=== PATIENT | female | born 1950 | race Caucasian/White ===

== ENCOUNTER → 2017-03-31 | Outpatient (CLI) | payer MEDICARE, OTHER ==
[2017-03-31 13:19] LABS: Blood Urea Nitrogen 13 mg/dL (7-17); Non-African American GFR(MDRD) >60 (>60 ml/min/1.73 sqM)
--- NOTE | 2017-03-31 14:50 | CT ---
EXAMINATION TYPE: CT brain w con DATE OF EXAM: 03/31/2017 COMPARISON: NONE HISTORY: 67-year-old female with dizziness and headache. CT DLP: 1129 mGycm Automated exposure control for dose reduction was used. Technique: CT scan of the head is performed with IV Contrast, patient injected with 100 mL of Omnipaq ue 300. Coronal and sagittal reconstructions performed. FINDINGS: There is no abnormal enhancing mass or midline shift identified. There is mild bifrontal cortical at rophy. No hydrocephalus. Dural venous sinuses are patent. The globes are intact and the visualized s inuses are clear. IMPRESSION: Mild bifrontal cortical atrophy. Otherwise, negative contrast enhanced head CT exam.
== END | disposition home or self-care (01) ==
LOC: RADCTMAIN 12:49
PROVIDERS: ATTEND Family Medicine
DX: G31.9 Degenerative disease of nervous system, unspecified (principal); R42 Dizziness and giddiness
CPT/HCPCS: 82565; 84520; 70460; 36415; Q9967

== ENCOUNTER 2017-04-02 20:52 | Emergency (ER) | payer MEDICARE, OTHER ==
[2017-04-02] MEDS ORDERED: MORPHINE SULFATE 4 MG/ML SYRINGE IVP STA ×2 (21:20→22:37)
[2017-04-02] MEDS ORDERED: RX INFO: IV CONTRAST WAS GIVEN 1 EACH MISC MISCELLANE PRN (21:20)
[2017-04-02] MEDS ORDERED: ONDANSETRON 4 MG/2 ML VIAL IVP STA (21:20)
--- NOTE | 2017-04-02 21:33 | ED ---
Abdominal Pain HPI - General Chief Complaint: Abdominal Pain Stated Complaint: Flank Pain Source: patient Mode of arrival: wheelchair Limitations: no limitations - History of Present Illness Initial Comments: Patient is a 67-year-old female who presents for evaluation for acute right upper flank pain that started today. Past medical history as below. Patient stated that she is recently treated for a urinary tract infection with Cleocin. This past Thursday, she had 8 episodes of loose stools. She discussed this with her primary care physician who ordered a C. diff toxin and by mouth Flagyl. Prior to starting that though, the patient developed this right sharp unrelenting right upper flank pain. Nothing makes it better or worse. She has a history of kidney stones and states that the pain feels somewhat similar to that. She also states that she recently flew back from [facility]. She has no history of DVT or pulmonary embolism. She has a long-standing history of hypertension. There is no blood in her urine. She denies any urinary symptoms at this time. She states that she feels somewhat nauseous. She describes it as "gastritis ". She has not had a bowel movement since Thursday. She comes in for evaluation because the pain has become quite severe in the right upper flank. She also states that she's been having symptoms of exertional chest pain and states that she'll sometimes be sweaty with simple activities. This is apparently new over the last couple of days. She has a history of a heart problem several years ago which is since resolved. She is never had a heart attack. She currently denies fevers, headaches, URI symptoms , cough, active chest pain as of right now, vomiting, diarrhea, pain or burning with urination. - Related Data Home Medications Medication Instructions Recorded Confirmed Aspirin EC [Ecotrin Low Dose] 81 mg PO DAILY 04/22/16 06/02/16 Esomeprazole Magnesium [NexIUM] 40 mg PO BID 04/22/16 06/04/16 Ezetimibe [Zetia] 10 mg PO HS 04/22/16 06/04/16 Insulin Lispro Protamin/Lispro 68 units SQ BID 04/22/16 06/04/16 [humaLOG Mix 75-25 Kwikpen] Levothyroxine Sodium [Synthroid] 50 mcg PO DAILY 04/22/16 06/04/16 Liraglutide [Victoza 2-Dread] 1.8 mg SQ AC-BID 04/22/16 06/04/16 Methocarbamol [Robaxin] 500 mg PO HS PRN 04/22/16 06/04/16 Mirabegron [Myrbetriq] 50 mg PO DAILY 04/22/16 06/04/16 Valsartan [Diovan] 40 mg PO HS 04/22/16 06/04/16 traMADol HCL [Ultram] 50 - 100 mg PO Q6HR PRN 04/22/16 06/04/16 Ibuprofen [Motrin] 200 - 800 mg PO Q6HR PRN 06/02/16 06/04/16 Montelukast [Singulair] 10 mg PO DAILY PRN 06/02/16 06/04/16 Rosuvastatin Calcium [Crestor] 40 mg PO HS 06/02/16 06/04/16 diphenhydrAMINE [Benadryl] 50 mg PO DAILY PRN 06/02/16 06/04/16 Previous Rx's Medication Instructions Recorded Polyethylene Glycol 3350 [Miralax] 17 gm PO BID #527 gm 04/02/17 Allergies Allergy/AdvReac Type Severity Reaction Status Date / Time codeine Allergy Rash/Hives Verified 04/02/17 20:58 neomycin Allergy Unknown Verified 04/02/17 20:58 Sulfa (Sulfonamide Allergy Unknown Verified 04/02/17 20:58 Antibiotics) sulfamethoxazole Allergy Dyspnea Verified 04/02/17 20:58 [From ] trimethoprim [From ] Allergy Dyspnea Verified 04/02/17 20:58 morphine AdvReac Itching Verified 04/02/17 20:58 Review of Systems ROS Statement: Those systems with pertinent positive or pertinent negative responses have been documented in the HPI. ROS Other: All systems not noted in ROS Statement are negative. Past Medical History Past Medical History: Cancer, Diabetes Mellitus, GERD/Reflux, Hyperlipidemia, Hypertension, Sleep Apnea/CPAP/BIPAP Additional Past Medical History / Comment(s): Lt Breast CA. HX IRREG HEART X1. USES CPAP. HX COLITIS. HAD BLACK STOOLS 2 WEEKS AGO. History of Any Multi-Drug Resistant Organisms: MRSA Date of last positivie culture/infection: 2013 MDRO Source:: nasal Past Surgical History: Back Surgery, Breast Surgery, Cholecystectomy, Hysterectomy Additional Past Surgical History / Comment(s): Lt Mastectomy W/ RECONSTRUCTION; RT BREAST IMPLANT. SINUS SURG X3. Additional Past Anesthesia/Blood Transfusion Reaction / Comment(s): HX OF DAMAGE TO VOCAL CORDS POST-OP Past Psychological History: No Psychological Hx Reported Smoking Status: Never smoker Past Alcohol Use History: Rare Past Drug Use History: None Reported - Past Family History Father Sister(s) Family Medical History: Cancer Brother(s) Family Medical History: Cancer Additional Family Medical History / Comment(s): ANEURYSM General Exam Limitations: no limitations General appearance: alert, in no apparent distress, other (Lying somewhat still in the stretcher.) Head exam: Present: atraumatic, normocephalic, normal inspection Eye exam: Present: normal appearance, PERRL, EOMI. Absent: scleral icterus, conjunctival injection, periorbital swelling ENT exam: Present: normal exam, mucous membranes moist Neck exam: Present: normal inspection. Absent: tenderness, meningismus, lymphadenopathy Respiratory exam: Present: normal lung sounds bilaterally, other (Clear bilaterally without wheezes rales or rhonchi. No conversational dyspnea. Mild tachypnea 20. No hypoxia.). Absent: respiratory distress, wheezes, rales, rhonchi, stridor Cardiovascular Exam: Present: regular rate, normal rhythm, normal heart sounds, other (Normal S1 and S2. No murmurs. Distal pulses intact. Warm extremities. Hypertensive on exam. No abdominal bruits. No pulsatile masses in her abdomen. Radial and femoral pulses equal and intact.). Absent: systolic murmur , diastolic murmur, rubs, gallop, clicks GI/Abdominal exam: Present: soft, tenderness, normal bowel sounds, other (Pain with palpation of the right upper flank/right upper quadrant. Soft abdomen. No peritoneal signs.). Absent: distended, guarding, rebound, rigid Extremities exam: Present: normal inspection, full ROM, normal capillary refill. Absent: tenderness, pedal edema, joint swelling, calf tenderness Back exam: Present: normal inspection Neurological exam: Present: alert, oriented X3, CN II-XII intact Psychiatric exam: Present: normal affect, normal mood Skin exam: Present: warm, dry, intact, normal color. Absent: rash Course Vital Signs 04/02/17 04/02/17 04/02/17 20:53 21:37 23:44 Temperature 97.0 F L Pulse Rate 66 67 74 Respiratory 20 18 18 Rate Blood Pressure 176/79 165/79 144/68 O2 Sat by Pulse 96 96 95 Oximetry Medical Decision Making - Medical Decision Making 2114: Patient is a 67-year-old female who presents for evaluation for acute right flank pain. Patient has a constellation of symptoms that are somewhat vague. Recently treated for UTI. History of kidney stones. Could possibly be related to pyelonephritis versus septic stone. Patient also recommended workup for possible C. diff. However, the patient is no longer having diarrhea or loose stools. Patient is also having exertional dyspnea, intermittent chest pain and sweating episodes. She had reproducible chest pain with the right upper flank. Possibility that she may have a PE as well as she is recently had a long plane flight. We'll order CT angiogram chest abdomen and pelvis, EKG, troponins, d-dimer, CBC, CMP, urinalysis with urine culture, C. diff toxin, morphine, Zofran, cardiac monitoring. Believe this patient is a high risk with her long-standing history of hypertension, acute flank pain. 2133: Reviewed EKG. Sinus rhythm at 64. [place] 166. QRS 88. QTc 460. No ST changes. 0: Reviewed laboratory studies. Within normal limits. No elevation in the d -dimer or troponin. Reevaluated the patient. Continues to have right upper flank pain. States that it is 8 out of 10. States it is unbearable. Awaiting for CT imaging. 2330: Awaiting final read of CT imaging. Pt requested something more for pain; ordered an additional dose of morphine. 2350: CT findings revealed no acute abnormality. Aorta intact. No signs of kidney stones. No other inflammatory process in the bowel chest or pelvis. Significant constipation. There is also a lytic lesion on the right iliac crest. I discussed all the findings with the patient. Her VS are stable. She voiced understanding of the entire workup provided.. Comfortable with discharge home as her pain is greatly improved. Will order MiraLAX twice a day for 14 days. Encourage close follow-up with primary care physician. If pain persists over the next 8-12 hours she will return for further evaluation. Otherwise will follow-up with her PCP. Discussed further signs and symptoms on when to return to the emergency department for further evaluation. Worse understanding. Comfortable discharge home and will follow-up. - Lab Data Result diagrams: 04/02/17 21:18 04/02/17 21:18 Lab Results 04/02/17 04/02/17 04/02/17 Range/Units 21:18 21:18 21:18 WBC 9.6 (3.8-10.6) k/uL RBC 5.13 (3.80-5.40) m/uL Hgb 14.3 (11.4-16.0) gm/dL Hct 44.9 (34.0-46.0) % MCV 87.5 (80.0-100.0) fL MCH 28.0 (25.0-35.0) pg MCHC 32.0 (31.0-37.0) g/dL RDW 15.9 H (11.5-15.5) % Plt Count 249 (150-450) k/uL Neutrophils % 59 % Lymphocytes % 31 % Monocytes % 5 % Eosinophils % 3 % Basophils % 1 % Neutrophils # 5.7 (1.3-7.7) k/uL Lymphocytes # 3.0 (1.0-4.8) k/uL Monocytes # 0.5 (0-1.0) k/uL Eosinophils # 0.3 (0-0.7) k/uL Basophils # 0.1 (0-0.2) k/uL D-Dimer 0.39 (<0.60) mg/L FEU Sodium 138 (137-145) mmol/L Potassium 3.9 (3.5-5.1) mmol/L Chloride 103 (98-107) mmol/L Carbon Dioxide 24 (22-30) mmol/L Anion Gap 11 mmol/L BUN 13 (7-17) mg/dL Creatinine 0.79 (0.52-1.04) mg/dL Est GFR (MDRD) Af Amer >60 (>60 ml/min/1.73 sqM) Est GFR (MDRD) Non-Af >60 (>60 ml/min/1.73 sqM) Glucose 263 H (74-99) mg/dL Calcium 9.0 (8.4-10.2) mg/dL Magnesium 1.6 (1.6-2.3) mg/dL Total Bilirubin 0.3 (0.2-1.3) mg/dL AST 30 (14-36) U/L ALT 41 (9-52) U/L Alkaline Phosphatase 93 (38-126) U/L Troponin I (0.000-0.034) ng/mL Total Protein 7.3 (6.3-8.2) g/dL Albumin 3.9 (3.5-5.0) g/dL Lipase 264 (23-300) U/L Urine Color Urine Appearance (Clear) Urine pH (5.0-8.0) Ur Specific [place] (1.001-1.035) Urine Protein (Negative) Urine Glucose (UA) (Negative) Urine Ketones (Negative) Urine Blood (Negative) Urine Nitrite (Negative) Urine Bilirubin (Negative) Urine Urobilinogen (<2.0) mg/dL Ur Leukocyte Esterase (Negative) 04/02/17 04/02/17 Range/Units 21:18 21:18 WBC (3.8-10.6) k/uL RBC (3.80-5.40) m/uL Hgb (11.4-16.0) gm/dL Hct (34.0-46.0) % MCV (80.0-100.0) fL MCH (25.0-35.0) pg MCHC (31.0-37.0) g/dL RDW (11.5-15.5) % Plt Count (150-450) k/uL Neutrophils % % Lymphocytes % % Monocytes % % Eosinophils % % Basophils % % Neutrophils # (1.3-7.7) k/uL Lymphocytes # (1.0-4.8) k/uL Monocytes # (0-1.0) k/uL Eosinophils # (0-0.7) k/uL Basophils # (0-0.2) k/uL D-Dimer (<0.60) mg/L FEU Sodium (137-145) mmol/L Potassium (3.5-5.1) mmol/L Chloride (98-107) mmol/L Carbon Dioxide (22-30) mmol/L Anion Gap mmol/L BUN (7-17) mg/dL Creatinine (0.52-1.04) mg/dL Est GFR (MDRD) Af Amer (>60 ml/min/1.73 sqM) Est GFR (MDRD) Non-Af (>60 ml/min/1.73 sqM) Glucose (74-99) mg/dL Calcium (8.4-10.2) mg/dL Magnesium (1.6-2.3) mg/dL Total Bilirubin (0.2-1.3) mg/dL AST (14-36) U/L ALT (9-52) U/L Alkaline Phosphatase (38-126) U/L Troponin I <0.012 (0.000-0.034) ng/mL Total Protein (6.3-8.2) g/dL Albumin (3.5-5.0) g/dL Lipase (23-300) U/L Urine Color Light Yellow Urine Appearance Clear (Clear) Urine pH 5.5 (5.0-8.0) Ur Specific [place] 1.013 (1.001-1.035) Urine Protein Negative (Negative) Urine Glucose (UA) 4+ H (Negative) Urine Ketones Negative (Negative) Urine Blood Negative (Negative) Urine Nitrite Negative (Negative) Urine Bilirubin Negative (Negative) Urine Urobilinogen <2.0 (<2.0) mg/dL Ur Leukocyte Esterase Negative (Negative) Disposition Clinical Impression: Abdominal pain, Bone lesion Disposition: HOME SELF-CARE Condition: Fair Instructions: Constipation (ED), Abdominal Pain (ED) Prescriptions: Polyethylene Glycol 3350 [Miralax] 17 gm PO BID #527 gm Referrals: Annelise Rose DO [Primary Care Provider] - 1-2 days
[2017-04-02 21:34] LABS: Basophils # (A) 0.1 k/uL (0-0.2); Basophils % (A) 1 %; CH 29.1; CHCM 33.4; Eosinophils # (A) 0.3 k/uL (0-0.7); Eosinophils % (A) 3 %; HCT 44.9 % (34.0-46.0); HDW 2.53; HGB 14.3 gm/dL (11.4-16.0); Luc # (Auto) 0.16; Luc % (Auto) 2; Lymphocytes % (A) 31 %; MCV 87.5 fL (80.0-100.0); Mean Platelet Volume 7.5; Monocytes # (A) 0.5 k/uL (0-1.0); Monocytes % (A) 5 %; Neutrophils # (A) 5.7 k/uL (1.3-7.7); Neutrophils % (A) 59 %; RBC 5.13 m/uL (3.80-5.40); RDW 15.9 % (11.5-15.5); WBC 9.6 k/uL (3.8-10.6); WBC (Perox) 9.22
[2017-04-02 21:37] VITALS: RESP 18
[2017-04-02 21:38] LABS: Appearance,Urine Clear (Clear); Bilirubin,Urine Negative (Negative); Glucose,Urine (UA) 4+ (Negative); Ketones,Urine Negative (Negative); Leukocyte Esterase,Urine Negative (Negative); Nitrite,Urine Negative (Negative); PH, Urine 5.5 (5.0-8.0); Protein,Urine Negative (Negative); Specific Gravity,Urine 1.013 (1.001-1.035); UA Billing (MACRO vs. MICRO) CHEM; Urobilinogen,Urine <2.0 mg/dL (<2.0)
[2017-04-02 21:44] LABS: ALT 41 U/L (9-52); AST 30 U/L (14-36); Alkaline Phosphatase 93 U/L (38-126); Anion Gap 11 mmol/L; Blood Urea Nitrogen 13 mg/dL (7-17); Carbon Dioxide 24 mmol/L (22-30); Chloride 103 mmol/L (98-107); Glucose 263 mg/dL (74-99); Magnesium 1.6 mg/dL (1.6-2.3); Non-African American GFR(MDRD) >60 (>60 ml/min/1.73 sqM); Potassium 3.9 mmol/L (3.5-5.1); Sodium 138 mmol/L (137-145); Total Bilirubin 0.3 mg/dL (0.2-1.3); Total Protein 7.3 g/dL (6.3-8.2)
--- NOTE | 2017-04-02 23:37 | CT ---
EXAM: CT Angiography Abdomen With Intravenous Contrast CLINICAL HISTORY: Reason: Pain TECHNIQUE: Axial computed tomographic angiography images of the abdomen with intravenous contrast. CTDI is 67.20 (combined) mGy and DLP is 841.5 mGy- cm. This CT exam was performed using one or more of the following dose reduction techniques: automated exposure control, adjustment of the mA and/or kV according to patient size, and/or use of iterative reconstruction technique. MIP reconstructed images were created and reviewed. COMPARISON: None. FINDINGS: Aorta: Moderate tortuosity of the intra-abdominal aorta is seen. No evidence of intra-abdominal aortic aneurysm. Mild atherosclerotic vascular calcifications involving the intra-abdominal aorta and its branches. No dissection. Celiac trunk and mesenteric arteries: No acute findings. No occlusion or significant stenosis. Renal arteries: No acute findings. No occlusion or significant stenosis. Liver: Liver measures up to 22.9 cm in craniocaudad dimension, which may represent a Eliot's lobe. Hepatomegaly cannot be definitively excluded. Hepatic steatosis is suggested. Gallbladder and bile ducts: Patient status post cholecystectomy. No ductal dilation. Pancreas: The pancreas appears mildly atrophic. No ductal dilation. Spleen: Unremarkable. No splenomegaly. Adrenals: Unremarkable. No mass. Kidneys and ureters: Unremarkable. No hydronephrosis. No solid mass. Stomach and bowel: Moderate amount stool seen within the colon, which may represent constipation. No obstruction. No mucosal thickening. A normal appendix is seen. Intraperitoneal space: Unremarkable. No significant fluid collection. No free air. Bones/joints: 2.7 cm mixed lytic/sclerotic lesion within the medial right iliac bone. Postoperative changes are seen involving the lower lumbar spine. No acute fracture. No dislocation. Soft tissues: Unremarkable. No mass. Lymph nodes: Shotty retroperitoneal lymph nodes, of unknown significance. IMPRESSION: 1. Findings suggestive of constipation. 2. A Eliot's lobe versus hepatomegaly. Hepatic steatosis suggested. 3. Status post cholecystectomy. 4. A 2.7 cm mixed lytic/sclerotic lesion within the medial right iliac bone. Correlation with prior outside studies recommended for further evaluation. Nonemergent MRI is recommended for further evaluation if prior studies aren't available. 5. Other findings as above
--- NOTE | 2017-04-02 23:42 | CT ---
EXAM: CT Angiography Chest With Intravenous Contrast CLINICAL HISTORY: Flank pain radiating anteriorly. TECHNIQUE: Axial computed tomographic angiography images of the chest with intravenous contrast using pulmonary embolism protocol. CTDI is combined with CTA of the abdomen/pelvis and DLP is 365.3 mGy-cm. This CT exam was performed using one or more of the following dose reduction techniques: automated exposure control, adjustment of the mA and/or kV according to patient size, and/or use of iterative reconstruction technique. MIP reconstructed images were created and reviewed. COMPARISON: None. FINDINGS: Pulmonary arteries: Unremarkable. No pulmonary embolism. Aorta: No acute findings. No thoracic aortic aneurysm. Lungs: Mild bronchiectasis is suggested. Minimal dependent atelectasis is seen involving both lower lobes, right greater than left. Linear atelectasis is also seen involving both lower lobes. No mass. Pleural space: Unremarkable. No significant effusion. No pneumothorax. Heart: Unremarkable. No cardiomegaly. No significant pericardial effusion. No evidence of RV dysfunction. Bones/joints: Evaluation of the osseous structures demonstrates mild degenerative changes. No acute fracture. No dislocation. Soft tissues: Bilateral breast implants are noted. Lymph nodes: Mildly prominent mediastinal and bilateral hilar lymph nodes are seen, which are at the upper limits of normal, of unknown significance. IMPRESSION: No acute findings. Other findings, as described above.
[2017-04-02 23:45] VITALS: BP 144/68; PULSE 74
[2017-04-03 00:01] VITALS: TEMP 97.6
== END 2017-04-03 00:01 | disposition home or self-care (01) ==
LOC: EC 20:52
DX: M89.9 Disorder of bone, unspecified (principal); R10.11 Right upper quadrant pain; K59.00 Constipation, unspecified; E11.9 Type 2 diabetes mellitus without complications; K21.9 Gastro-esophageal reflux disease without esophagitis; E78.5 Hyperlipidemia, unspecified; I10 Essential (primary) hypertension; Z85.3 Personal history of malignant neoplasm of breast; Z87.19 Personal history of other diseases of the digestive system; Z90.49 Acquired absence of other specified parts of digestive tract; Z88.1 Allergy status to other antibiotic agents; Z88.2 Allergy status to sulfonamides; Z88.5 Allergy status to narcotic agent; Z88.8 Allergy status to other drugs, medicaments and biological substances; Z79.4 Long term (current) use of insulin; Z79.82 Long term (current) use of aspirin; Z79.899 Other long term (current) drug therapy
CPT/HCPCS: 99284 ×2; 96374 ×2; 96375 ×2; 96376 ×2; 93005; 85379; 80053; 83690; 83735; 84484; 85025; 81003; 87086; 87077; 87186; 75635; 71275; J2270; Q9967; J2405

== ENCOUNTER → 2017-05-15 | Outpatient (CLI) | payer MEDICARE, OTHER ==
--- NOTE | 2017-05-16 00:02 | MR ---
EXAMINATION TYPE: MR pelvis wo con DATE OF EXAM: 05/15/2017 COMPARISON: NONE HISTORY: lytic lesion on rt iliac crest, abnormal CT angio thoracic/abd aorta Standard multiplanar, multisequence MRI departmental protocol Multiplanar, multisequence images of the pelvis were acquired. FINDINGS: There is a 2.4 x 2 cm mixed signal area that is somewhat geographic in the posterior aspect of the right iliac bone adjacent to the sacrum. This area has high attenuation on the CT scan of 03/17 consistent with significant sclerosis. There is no evidence of a soft tissue mass. Sacroiliac joints appear normal. There is no evidence of free fluid in the pelvis. I see no pelvic mass. Bladder distends smoothly. Lo wer lumbar spine metal artifact is noted from multilevel fusion surgery. There is no evidence of a fr acture. The proximal femurs appear intact. There is no sign of hip dysplasia. IMPRESSION: Mixed signal lesion in the right iliac bone appears unchanged in size compared to the recent CT scan. This is probably due to bone donor site for the lumbar spine posterior fusion surgery. Correlation w ith the surgical history is recommended. The lesion has benign features on CT and MR scan.
== END | disposition home or self-care (01) ==
LOC: RADMRIMAIN 12:46
PROVIDERS: ATTEND Physician Assistant
DX: R93.7 Abnormal findings on diagnostic imaging of other parts of musculoskeletal system (principal); M25.859 Other specified joint disorders, unspecified hip
CPT/HCPCS: 72195

== ENCOUNTER 2017-06-18 15:23 | Inpatient (IN) | payer MEDICARE, OTHER ==
[2017-06-18] MEDS ORDERED: ONDANSETRON 4 MG/2 ML VIAL IVP STA (15:49)
[2017-06-18] MEDS ORDERED: SODIUM CHLORIDE 0.9% 1,000 ML IV STA (15:49)
[2017-06-18] MEDS ORDERED: RX INFO: IV CONTRAST WAS GIVEN 1 EACH MISC MISCELLANE PRN (15:49)
[2017-06-18] MEDS ORDERED: PANTOPRAZOLE 40 MG/10 ML VIAL IVP STA (15:49)
[2017-06-18] MEDS ORDERED: HYDROmorphone 0.5 MG/0.5 ML SYRINGE IVP STA ×2 (15:49→17:33)
[2017-06-18 16:17] LABS: Anisocytosis Slight; Basophils # (A) 0.1 k/uL (0-0.2); Basophils % (A) 1 %; CH 28.2; CHCM 32.4; Eosinophils # (A) 0.3 k/uL (0-0.7); Eosinophils % (A) 3 %; HCT 44.8 % (34.0-46.0); HDW 2.47; HGB 14.7 gm/dL (11.4-16.0); Luc # (Auto) 0.09; Luc % (Auto) 1; Lymphocytes # (A) 2.1 k/uL (1.0-4.8); Lymphocytes % (A) 25 %; MCH 28.7 pg (25.0-35.0); MCHC 32.9 g/dL (31.0-37.0); MCV 87.4 fL (80.0-100.0); Mean Platelet Volume 7.5; Monocytes # (A) 0.5 k/uL (0-1.0); Monocytes % (A) 6 %; Neutrophils # (A) 5.6 k/uL (1.3-7.7); Neutrophils % (A) 65 %; RBC 5.12 m/uL (3.80-5.40); RDW 16.3 % (11.5-15.5); WBC 8.7 k/uL (3.8-10.6); WBC (Perox) 8.68
[2017-06-18 16:21] LABS: Appearance,Urine Cloudy (Clear); Bacteria,Urine Occasional /hpf; Bilirubin,Urine Negative (Negative); Glucose,Urine (UA) 2+ (Negative); Ketones,Urine Negative (Negative); Leukocyte Esterase,Urine Large (Negative); Nitrite,Urine Positive (Negative); PH, Urine 6.5 (5.0-8.0); Particle Count 26273; Protein,Urine Negative (Negative); Specific Gravity,Urine 1.007 (1.001-1.035); Squamous Epithelial Cell,Urine <1 /hpf (0-4); UA Billing (MACRO vs. MICRO) MICRO; Urobilinogen,Urine <2.0 mg/dL (<2.0); WBC,Urine 88 /hpf (0-5)
--- NOTE | 2017-06-18 16:25 | ED ---
Abdominal Pain HPI - General Chief Complaint: Abdominal Pain Stated Complaint: back & abdominal pain Time Seen by Provider: 06/18/17 15:42 Source: patient, RN notes reviewed Mode of arrival: ambulatory Limitations: no limitations - History of Present Illness Initial Comments: This a 67-year-old female presents emergency Department with chief complaint of abdominal pain, black stools. She states this started yesterday with increasing abdominal pain which is now diffuse in nature. Patient states that she had more than 10 episodes of black tarry stools. Patient states that she did have bleeding in her intestines in the past which she was told this was from taking ibuprofen. Patient currently takes aspirin 81 mg daily. Patient had a prior cholecystectomy and hysterectomy. Denies any vomiting states she's nauseated denies fever, chills, dysuria or hematuria. Denies any chest pain or shortness breath. Patient saw her primary care physician who recommended patient come emergency Department for further evaluation. - Related Data Home Medications Medication Instructions Recorded Confirmed Aspirin EC [Ecotrin Low Dose] 81 mg PO DAILY 04/22/16 06/18/17 Esomeprazole Magnesium [NexIUM] 40 mg PO BID 04/22/16 06/18/17 Ezetimibe [Zetia] 10 mg PO HS 04/22/16 06/18/17 Insulin Lispro Protamin/Lispro 48 units SQ BID 04/22/16 06/18/17 [humaLOG Mix 75-25 Kwikpen] Liraglutide [Victoza 2-Dread] 1.8 mg SQ AC-BID 04/22/16 06/18/17 Methocarbamol [Robaxin] 500 mg PO HS PRN 04/22/16 06/18/17 Mirabegron [Myrbetriq] 50 mg PO DAILY 04/22/16 06/18/17 Valsartan [Diovan] 80 mg PO HS 04/22/16 06/18/17 traMADol HCL [Ultram] 50 - 100 mg PO Q6HR PRN 04/22/16 06/18/17 Montelukast [Singulair] 10 mg PO DAILY 06/02/16 06/18/17 Rosuvastatin Calcium [Crestor] 40 mg PO HS 06/02/16 06/18/17 Levothyroxine Sodium [Synthroid] 50 mcg PO DAILY 06/18/17 06/18/17 Allergies Allergy/AdvReac Type Severity Reaction Status Date / Time neomycin Allergy Unknown Verified 06/18/17 16:25 Sulfa (Sulfonamide Allergy Unknown Verified 06/18/17 16:25 Antibiotics) sulfamethoxazole Allergy Dyspnea Verified 06/18/17 16:25 [From ] trimethoprim [From ] Allergy Dyspnea Verified 06/18/17 16:25 codeine AdvReac Itching Verified 06/18/17 16:25 morphine AdvReac Itching Verified 06/18/17 16:25 Review of Systems ROS Statement: Those systems with pertinent positive or pertinent negative responses have been documented in the HPI. ROS Other: All systems not noted in ROS Statement are negative. Past Medical History Past Medical History: Cancer, Diabetes Mellitus, GERD/Reflux, Hyperlipidemia, Hypertension, Sleep Apnea/CPAP/BIPAP Additional Past Medical History / Comment(s): Lt Breast CA. HX IRREG HEART X1. USES CPAP. HX COLITIS. HAD BLACK STOOLS 2 WEEKS AGO. History of Any Multi-Drug Resistant Organisms: MRSA Date of last positivie culture/infection: 04/02/17 MDRO Source:: URINE Past Surgical History: Back Surgery, Breast Surgery, Cholecystectomy, Hysterectomy Additional Past Surgical History / Comment(s): Lt Mastectomy W/ RECONSTRUCTION; RT BREAST IMPLANT. SINUS SURG X3. Additional Past Anesthesia/Blood Transfusion Reaction / Comment(s): HX OF DAMAGE TO VOCAL CORDS POST-OP Past Psychological History: No Psychological Hx Reported Smoking Status: Never smoker Past Alcohol Use History: Rare Past Drug Use History: None Reported - Past Family History Father Sister(s) Family Medical History: Cancer Brother(s) Family Medical History: Cancer Additional Family Medical History / Comment(s): ANEURYSM General Exam Limitations: no limitations General appearance: alert, in no apparent distress Neck exam: Present: normal inspection, full ROM. Absent: tenderness, meningismus, lymphadenopathy Respiratory exam: Present: normal lung sounds bilaterally. Absent: respiratory distress, wheezes, rales, rhonchi, stridor Cardiovascular Exam: Present: regular rate, normal rhythm, normal heart sounds. Absent: systolic murmur, diastolic murmur, rubs, gallop, clicks GI/Abdominal exam: Present: soft, tenderness ([id number] diffuse), normal bowel sounds. Absent: distended, guarding, rebound, rigid Back exam: Absent: CVA tenderness (R), CVA tenderness (L) Skin exam: Present: warm, dry, intact, normal color. Absent: rash Course Vital Signs 06/18/17 06/18/17 15:24 17:03 Temperature 98.2 F Pulse Rate 82 70 Respiratory 18 16 Rate Blood Pressure 142/68 125/61 O2 Sat by Pulse 97 93 L Oximetry Medical Decision Making - Lab Data Result diagrams: 06/18/17 16:06 06/18/17 16:06 Lab Results 06/18/17 06/18/17 06/18/17 Range/Units 16:06 16:06 16:06 WBC 8.7 (3.8-10.6) k/uL RBC 5.12 (3.80-5.40) m/uL Hgb 14.7 (11.4-16.0) gm/dL Hct 44.8 (34.0-46.0) % MCV 87.4 (80.0-100.0) fL MCH 28.7 (25.0-35.0) pg MCHC 32.9 (31.0-37.0) g/dL RDW 16.3 H (11.5-15.5) % Plt Count 253 (150-450) k/uL Neutrophils % 65 % Lymphocytes % 25 % Monocytes % 6 % Eosinophils % 3 % Basophils % 1 % Neutrophils # 5.6 (1.3-7.7) k/uL Lymphocytes # 2.1 (1.0-4.8) k/uL Monocytes # 0.5 (0-1.0) k/uL Eosinophils # 0.3 (0-0.7) k/uL Basophils # 0.1 (0-0.2) k/uL Anisocytosis Slight PT (9.0-12.0) sec INR (<1.2) APTT (22.0-30.0) sec Sodium 137 (137-145) mmol/L Potassium 4.6 (3.5-5.1) mmol/L Chloride 101 (98-107) mmol/L Carbon Dioxide 26 (22-30) mmol/L Anion Gap 10 mmol/L BUN 16 (7-17) mg/dL Creatinine 0.81 (0.52-1.04) mg/dL Est GFR (MDRD) Af Amer >60 (>60 ml/min/1.73 sqM) Est GFR (MDRD) Non-Af >60 (>60 ml/min/1.73 sqM) Glucose 161 H (74-99) mg/dL Plasma Lactic Acid Adan (0.7-2.0) mmol/L Calcium 9.2 (8.4-10.2) mg/dL Magnesium 1.6 (1.6-2.3) mg/dL Total Bilirubin 0.4 (0.2-1.3) mg/dL AST 33 (14-36) U/L ALT 32 (9-52) U/L Alkaline Phosphatase 78 (38-126) U/L Total Creatine Kinase 78 (30-135) U/L CK-MB (CK-2) 1.3 (0.0-2.4) ng/mL CK-MB (CK-2) Rel Index 1.7 Troponin I <0.012 (0.000-0.034) ng/mL Total Protein 7.4 (6.3-8.2) g/dL Albumin 4.0 (3.5-5.0) g/dL Urine Color Urine Appearance (Clear) Urine pH (5.0-8.0) Ur Specific [place] (1.001-1.035) Urine Protein (Negative) Urine Glucose (UA) (Negative) Urine Ketones (Negative) Urine Blood (Negative) Urine Nitrite (Negative) Urine Bilirubin (Negative) Urine Urobilinogen (<2.0) mg/dL Ur Leukocyte Esterase (Negative) Urine WBC (0-5) /hpf Urine WBC Clumps (None) /hpf Ur Squamous Epith Cells (0-4) /hpf Urine Bacteria (None) /hpf Urine Yeast (Budding) (None) /hpf Stool Occult Blood (Negative) 06/18/17 06/18/17 06/18/17 Range/Units 16:06 16:06 16:06 WBC (3.8-10.6) k/uL RBC (3.80-5.40) m/uL Hgb (11.4-16.0) gm/dL Hct (34.0-46.0) % MCV (80.0-100.0) fL MCH (25.0-35.0) pg MCHC (31.0-37.0) g/dL RDW (11.5-15.5) % Plt Count (150-450) k/uL Neutrophils % % Lymphocytes % % Monocytes % % Eosinophils % % Basophils % % Neutrophils # (1.3-7.7) k/uL Lymphocytes # (1.0-4.8) k/uL Monocytes # (0-1.0) k/uL Eosinophils # (0-0.7) k/uL Basophils # (0-0.2) k/uL Anisocytosis PT 11.5 (9.0-12.0) sec INR 1.1 (<1.2) APTT 24.0 (22.0-30.0) sec Sodium (137-145) mmol/L Potassium (3.5-5.1) mmol/L Chloride (98-107) mmol/L Carbon Dioxide (22-30) mmol/L Anion Gap mmol/L BUN (7-17) mg/dL Creatinine (0.52-1.04) mg/dL Est GFR (MDRD) Af Amer (>60 ml/min/1.73 sqM) Est GFR (MDRD) Non-Af (>60 ml/min/1.73 sqM) Glucose (74-99) mg/dL Plasma Lactic Acid Adan 1.3 (0.7-2.0) mmol/L Calcium (8.4-10.2) mg/dL Magnesium (1.6-2.3) mg/dL Total Bilirubin (0.2-1.3) mg/dL AST (14-36) U/L ALT (9-52) U/L Alkaline Phosphatase (38-126) U/L Total Creatine Kinase (30-135) U/L CK-MB (CK-2) (0.0-2.4) ng/mL CK-MB (CK-2) Rel Index Troponin I (0.000-0.034) ng/mL Total Protein (6.3-8.2) g/dL Albumin (3.5-5.0) g/dL Urine Color Yellow Urine Appearance Cloudy H (Clear) Urine pH 6.5 (5.0-8.0) Ur Specific [place] 1.007 (1.001-1.035) Urine Protein Negative (Negative) Urine Glucose (UA) 2+ H (Negative) Urine Ketones Negative (Negative) Urine Blood Trace H (Negative) Urine Nitrite Positive H (Negative) Urine Bilirubin Negative (Negative) Urine Urobilinogen <2.0 (<2.0) mg/dL Ur Leukocyte Esterase Large H (Negative) Urine WBC 88 H (0-5) /hpf Urine WBC Clumps Moderate H (None) /hpf Ur Squamous Epith Cells <1 (0-4) /hpf Urine Bacteria Occasional H (None) /hpf Urine Yeast (Budding) Few H (None) /hpf Stool Occult Blood (Negative) 06/18/17 Range/Units 17:15 WBC (3.8-10.6) k/uL RBC (3.80-5.40) m/uL Hgb (11.4-16.0) gm/dL Hct (34.0-46.0) % MCV (80.0-100.0) fL MCH (25.0-35.0) pg MCHC (31.0-37.0) g/dL RDW (11.5-15.5) % Plt Count (150-450) k/uL Neutrophils % % Lymphocytes % % Monocytes % % Eosinophils % % Basophils % % Neutrophils # (1.3-7.7) k/uL Lymphocytes # (1.0-4.8) k/uL Monocytes # (0-1.0) k/uL Eosinophils # (0-0.7) k/uL Basophils # (0-0.2) k/uL Anisocytosis PT (9.0-12.0) sec INR (<1.2) APTT (22.0-30.0) sec Sodium (137-145) mmol/L Potassium (3.5-5.1) mmol/L Chloride (98-107) mmol/L Carbon Dioxide (22-30) mmol/L Anion Gap mmol/L BUN (7-17) mg/dL Creatinine (0.52-1.04) mg/dL Est GFR (MDRD) Af Amer (>60 ml/min/1.73 sqM) Est GFR (MDRD) Non-Af (>60 ml/min/1.73 sqM) Glucose (74-99) mg/dL Plasma Lactic Acid Adan (0.7-2.0) mmol/L Calcium (8.4-10.2) mg/dL Magnesium (1.6-2.3) mg/dL Total Bilirubin (0.2-1.3) mg/dL AST (14-36) U/L ALT (9-52) U/L Alkaline Phosphatase (38-126) U/L Total Creatine Kinase (30-135) U/L CK-MB (CK-2) (0.0-2.4) ng/mL CK-MB (CK-2) Rel Index Troponin I (0.000-0.034) ng/mL Total Protein (6.3-8.2) g/dL Albumin (3.5-5.0) g/dL Urine Color Urine Appearance (Clear) Urine pH (5.0-8.0) Ur Specific [place] (1.001-1.035) Urine Protein (Negative) Urine Glucose (UA) (Negative) Urine Ketones (Negative) Urine Blood (Negative) Urine Nitrite (Negative) Urine Bilirubin (Negative) Urine Urobilinogen (<2.0) mg/dL Ur Leukocyte Esterase (Negative) Urine WBC (0-5) /hpf Urine WBC Clumps (None) /hpf Ur Squamous Epith Cells (0-4) /hpf Urine Bacteria (None) /hpf Urine Yeast (Budding) (None) /hpf Stool Occult Blood Negative (Negative) Disposition Clinical Impression: Colitis, GI bleed, UTI (urinary tract infection) Disposition: ADMITTED IP TO THIS [facility] Condition: Fair Referrals: Annelise Rose DO [Primary Care Provider] - 1-2 days
[2017-06-18 16:29] LABS: ALT 32 U/L (9-52); AST 33 U/L (14-36); Alkaline Phosphatase 78 U/L (38-126); Anion Gap 10 mmol/L; Blood Urea Nitrogen 16 mg/dL (7-17); Calcium 9.2 mg/dL (8.4-10.2); Carbon Dioxide 26 mmol/L (22-30); Chloride 101 mmol/L (98-107); Glucose 161 mg/dL (74-99); INR 1.1 (<1.2); Magnesium 1.6 mg/dL (1.6-2.3); Non-African American GFR(MDRD) >60 (>60 ml/min/1.73 sqM); Potassium 4.6 mmol/L (3.5-5.1); Prothrombin Time 11.5 sec (9.0-12.0); Sodium 137 mmol/L (137-145); Total Bilirubin 0.4 mg/dL (0.2-1.3); Total Protein 7.4 g/dL (6.3-8.2)
[2017-06-18 16:42] LABS: Creatine Kinase 78 U/L (30-135)
[2017-06-18 16:54] LABS: Creatine Kinase MB 1.3 ng/mL (0.0-2.4); Troponin I <0.012 ng/mL (0.000-0.034)
--- NOTE | 2017-06-18 17:05 | CT ---
EXAMINATION TYPE: CT abdomen pelvis w con DATE OF EXAM: 06/18/2017 COMPARISON: Previous CT 04/02/2017 HISTORY: Back pain radiating to abdomen and black stools x [address] DLP: 1378.90 mGycm Automated exposure control for dose reduction was used. TECHNIQUE: Helical acquisition of images from the lung bases through the pelvis have been completed. CONTRAST: Performed without Oral Contrast and with IV Contrast, patient injected with 100 mL of Omnipaque 300. FINDINGS: Left breast prosthesis is present. LUNG BASES: Some minimal atelectatic changes or scarring is present at the lung bases. AORTA: No significant abnormality is appreciated. LIVER/GB: Liver shows low attenuation possibly due to hepatic steatosis, gallbladder is absent, liver is enlarged PANCREAS: No significant abnormality is seen. SPLEEN: No significant abnormality is seen. ADRENALS: No significant abnormality is seen. KIDNEYS: No significant abnormality is seen. REPRODUCTIVE ORGANS: Not seen BOWEL: Diverticular changes associated with the colon. Questionable wall thickening in the descendin g colon. The appendix is normal. FREE AIR: No Free Air visible. ASCITES: None visible. PELVIC ADENOPATHY: None visualized. RETROPERITONEAL ADENOPATHY: No Retroperitoneal Adenopathy visible. URINARY BLADDER: No significant abnormality is seen. OSSEOUS STRUCTURES: Postop change noted in the lumbar spine, there is streak artifact present. IMPRESSION: CONSIDER COLITIS. DIVERTICULOSIS. CORRELATE FOR HEPATIC STEATOSIS, HEPATOMEGALY POSTOP CHANGES.
[2017-06-18] MEDS ORDERED: LEVOFLOXACIN 750MG-D5W PMX 750 MG in DEXTROSE/WATER 1 150ML.BAG IVPB STA (17:21)
[2017-06-18] MEDS ORDERED: metroNIDAZOLE 500 MG TAB PO STA (17:35)
[2017-06-18] MEDS ORDERED: HYDROmorphone 0.5 MG/0.5 ML SYRINGE IVP PRN (17:36)
[2017-06-18] MEDS ORDERED: NALOXONE 0.4 MG/ML 1 ML VIAL IV PRN (17:36)
[2017-06-18] MEDS ORDERED: ACETAMINOPHEN TAB 325 MG TAB PO PRN (17:36)
[2017-06-18] MEDS ORDERED: ONDANSETRON 4 MG/2 ML VIAL IVP PRN (17:36)
[2017-06-18] MEDS ORDERED: diphenhydrAMINE 50 MG/ML 1 ML VIAL IVP STA (17:48)
[2017-06-18] MEDS: SODIUM CHLORIDE 0.9% 1,000 ML IV SCH (17:51)
[2017-06-18 20:04] LABS: Glucose,Whole Blood 128 mg/dL (75-99)
[2017-06-18] MEDS: metroNIDAZOLE 500 MG TAB PO SCH (22:19)
[2017-06-18] MEDS: diphenhydrAMINE 50 MG/ML 1 ML VIAL IVP PRN (22:19)
[2017-06-18] MEDS: PANTOPRAZOLE 40 MG/10 ML VIAL IV SCH (22:20)
[2017-06-19 01:30] LABS: Anisocytosis Slight; Basophils # (A) 0.1 k/uL (0-0.2); Basophils % (A) 1 %; CHCM 31.4; Eosinophils # (A) 0.3 k/uL (0-0.7); Eosinophils % (A) 4 %; HCT 43.4 % (34.0-46.0); HDW 2.48; HGB 13.5 gm/dL (11.4-16.0); Hypochromasia Slight; Luc # (Auto) 0.08; Luc % (Auto) 1; Lymphocytes # (A) 1.5 k/uL (1.0-4.8); Lymphocytes % (A) 21 %; MCH 27.9 pg (25.0-35.0); MCHC 31.1 g/dL (31.0-37.0); MCV 89.8 fL (80.0-100.0); Mean Platelet Volume 7.8; Monocytes # (A) 0.5 k/uL (0-1.0); Monocytes % (A) 7 %; Neutrophils # (A) 4.7 k/uL (1.3-7.7); Neutrophils % (A) 66 %; RBC 4.83 m/uL (3.80-5.40); RDW 16.4 % (11.5-15.5); WBC 7.1 k/uL (3.8-10.6); WBC (Perox) 7.18
[2017-06-19] MEDS: LEVOTHYROXINE 50 MCG TAB PO SCH (06:26)
[2017-06-19] MEDS: SODIUM CHLORIDE 0.9% 1,000 ML IV SCH ×2 (06:28→20:24)
[2017-06-19 07:26] LABS: Glucose,Whole Blood 135 mg/dL (75-99)
[2017-06-19] MEDS: INSULIN LISPRO (humaLOG) 300 UNIT/3 ML VIAL SQ SCH ×4 (08:59→20:37)
[2017-06-19] MEDS ORDERED: NON-FORMULARY DRUG (Esomeprazole Magnesium [Nexium] 40 MG) PO SCH (09:00)
[2017-06-19] MEDS: MONTELUKAST 10 MG TAB PO SCH (09:06)
[2017-06-19] MEDS: metroNIDAZOLE 500 MG TAB PO SCH ×3 (09:06→20:35)
[2017-06-19] MEDS: PANTOPRAZOLE 40 MG/10 ML VIAL IV SCH ×2 (09:06→20:35)
[2017-06-19] MEDS: traMADol 50 MG TAB PO PRN ×2 (09:07→10:09)
[2017-06-19] MEDS: Mirabegron [Myrbetriq] 50 MG PO SCH (10:06)
--- NOTE | 2017-06-19 10:50 | CONS ---
CONSULTATION DATE OF SERVICE: 06/19/2017 REASON FOR CONSULTATION: Acute GI bleed and abdominal pain. HISTORY OF PRESENT ILLNESS: The patient is a 67-year-old white female, came in to the emergency room was complaining of severe abdominal pain followed by black tarry stools that happened 2 days ago. She has at least 10 episodes of black tarry stools and had some severe back pain radiating to the lower abdomen. She had some nausea but no emesis. The symptoms continued to progressively get worse. She came into the emergency room yesterday and subsequently admitted to the hospital for further evaluation. She has been taking Motrin 6 tablets daily for the chronic back pain as well as aspirin. No prior history of peptic ulcer disease. In the emergency room, she did have a CAT scan that shows some thickening of the sigmoid colon suspicious for colitis. This morning, she is doing better. Since being in the hospital she did not have any further episodes of dark stools. No prior history of peptic ulcer disease. PAST MEDICAL HISTORY: Significant for diabetes mellitus, sleep apnea, hypertension, hyperlipidemia, GERD. PAST SURGICAL HISTORY: Breast cancer status post surgery, back surgery, cholecystectomy, hysterectomy. MEDICATIONS: At home include Diovan, Ultram, Singular, Crestor, Synthroid, Myrbetriq, Robaxin, aspirin, Nexium, Zetia, insulin. ALLERGIES: To NEOMYCIN, SULFA, CODEINE, MORPHINE. SOCIAL HISTORY: No history of smoking, alcohol use. FAMILY HISTORY: Brother had some kind of cancer. REVIEW OF SYSTEMS: CARDIOPULMONARY: No chest pain, shortness of breath. GENITOURINARY: No dysuria, hematuria. MUSCULOSKELETAL: Unremarkable. SKIN: Unremarkable. ENDOCRINE: Unremarkable. PSYCHIATRIC: Unremarkable. NEUROLOGY: Unremarkable. HEMATOLOGY: Unremarkable. CONSTITUTIONAL: No recent weight loss. No fever, chills, night sweats. PHYSICAL EXAMINATION: He appears comfortable, in no apparent distress. Vital signs are stable. Blood pressure is 119/63, pulse is 70, temperature 97.2. HEENT EXAMINATION: Unremarkable, conjunctivae are pink, sclerae nonicteric. Oral cavity no lesions. NECK: No JVD or lymph node enlargement. CHEST: Clear to auscultation. HEART: Regular rate and rhythm. ABDOMEN: Soft. Bowel sounds are positive. No organomegaly. EXTREMITIES: No pedal edema. SKIN: No rashes. NEURO: Alert and oriented x3. No focal deficits LABS: At the time of admission to the hospital WBC 8.7, hemoglobin 14.7, platelets normal. PT, INR is normal. Basic metabolic panel is within normal limits. IMPRESSION: This is a patient who presented to the hospital with severe abdominal pain, mostly in the lower abdomen and back, followed by multiple episodes of black tarry stools for the last 2 days' duration. Hemoglobin surprisingly is normal at 14 g/dL. She does have history of NSAID use and takes Motrin 6 tablets daily for chronic back pain. No prior history of peptic ulcer disease. Presently, hemodynamically stable and clinically no evidence of active ongoing bleeding. RECOMMENDATION: 1. Continue with proton pump inhibitors. 2. We will start her on PPIs. 3. Proceed with an upper endoscopy tomorrow. Discussed with the patient risks, benefits, and complications of procedure and she is agreeable to it. Thank you for this consultation. LISA / CIARAN: [id number] /
[2017-06-19] MEDS: HYDROcodone/APAP 5-325MG 1 EACH TAB PO PRN ×3 (11:33→20:36)
[2017-06-19] MEDS: diphenhydrAMINE 50 MG/ML 1 ML VIAL IVP PRN (11:38)
[2017-06-19 11:59] LABS: Glucose,Whole Blood 162 mg/dL (75-99)
--- NOTE | 2017-06-19 12:03 | P.HPIM ---
History of Present Illness H&P Date: 06/19/17 Chief Complaint: Abdominal pain with black tarry stools This is a 67-year-old female, patient of [facility]. She has a known past medical history of diabetes mellitus, hyperlipidemia, GERD, hypertension, obstructive sleep apnea, colitis, breast cancer status post mastectomy and chemotherapy treatment. Patient reports a 2 day history of sharp abdominal pain that radiates across the abdomen from the right to the left. And also complaining of lower back pain mostly on the right side. Patient is been having black stools for about 2 days. She reports the last stool was Thursday evening. She had a computed tomography scan of the abdomen and pelvis completed in the emergency room that reports consider colitis. Diverticulosis. Correlate for hepatic steatosis. Patient started on Levaquin and Flagyl in the emergency room. She was also found have evidence of a UTI. Patient has had previous history of GI bleed in the past due to Motrin use. When I questioned patient about Motrin, ibuprofen or Aleve patient denies any usage of it. However, per GIs note it appears that patient is taking the Motrin on a regular basis for her back pain. Stool for occult blood is negative. Hemoglobin 14.7 dropped to 13.5. Patient reporting a last colonoscopy and EGD about a year ago which was negative. Patient seen by GI service they've scheduled her for an EGD tomorrow. She denies any nausea vomiting. Denies any chest pain shortness of breath. She does admit to having some burning with urination. Also note that patient was given a dose of IV Dilaudid in the emergency room for pain and developed a rash. She was given IV Benadryl. Dilaudid has been discontinued. Review of Systems Please refer to HPI otherwise unremarkable Past Medical History Past Medical History: Cancer, Diabetes Mellitus, GERD/Reflux, Hyperlipidemia, Hypertension, Sleep Apnea/CPAP/BIPAP Additional Past Medical History / Comment(s): Lt Breast CA. HX IRREG HEART X1. USES CPAP. HX COLITIS. HAD BLACK STOOLS 2 WEEKS AGO. History of Any Multi-Drug Resistant Organisms: MRSA Date of last positivie culture/infection: 04/02/17 MDRO Source:: URINE Past Surgical History: Back Surgery, Breast Surgery, Cholecystectomy, Hysterectomy Additional Past Surgical History / Comment(s): Lt Mastectomy W/ RECONSTRUCTION; RT BREAST IMPLANT. SINUS SURG X3. Additional Past Anesthesia/Blood Transfusion Reaction / Comment(s): HX OF DAMAGE TO VOCAL CORDS POST-OP Past Psychological History: No Psychological Hx Reported Smoking Status: Never smoker Past Alcohol Use History: Rare Past Drug Use History: None Reported - Past Family History Father Sister(s) Family Medical History: Cancer Brother(s) Family Medical History: Cancer Additional Family Medical History / Comment(s): ANEURYSM Medications and Allergies Home Medications Medication Instructions Recorded Confirmed Type Aspirin EC [Ecotrin Low Dose] 81 mg PO DAILY 04/22/16 06/18/17 History Esomeprazole Magnesium [NexIUM] 40 mg PO BID 04/22/16 06/18/17 History Ezetimibe [Zetia] 10 mg PO HS 04/22/16 06/18/17 History Insulin Lispro Protamin/Lispro 48 units SQ BID 04/22/16 06/18/17 History [humaLOG Mix 75-25 Kwikpen] Liraglutide [Victoza 2-Dread] 1.8 mg SQ AC-BID 04/22/16 06/18/17 History Methocarbamol [Robaxin] 500 mg PO HS PRN 04/22/16 06/18/17 History Mirabegron [Myrbetriq] 50 mg PO DAILY 04/22/16 06/18/17 History Valsartan [Diovan] 80 mg PO HS 04/22/16 06/18/17 History traMADol HCL [Ultram] 50 - 100 mg PO Q6HR PRN 04/22/16 06/18/17 History Montelukast [Singulair] 10 mg PO DAILY 06/02/16 06/18/17 History Rosuvastatin Calcium [Crestor] 40 mg PO HS 06/02/16 06/18/17 History Levothyroxine Sodium [Synthroid] 50 mcg PO DAILY 06/18/17 06/18/17 History Allergies Allergy/AdvReac Type Severity Reaction Status Date / Time neomycin Allergy Unknown Verified 06/18/17 16:25 Sulfa (Sulfonamide Allergy Unknown Verified 06/18/17 16:25 Antibiotics) sulfamethoxazole Allergy Dyspnea Verified 06/18/17 16:25 [From ] trimethoprim [From ] Allergy Dyspnea Verified 06/18/17 16:25 codeine AdvReac Itching Verified 06/18/17 16:25 morphine AdvReac Itching Verified 06/18/17 16:25 Physical Exam Vitals: Vital Signs Temp Pulse Pulse Resp BP BP Pulse Ox 06/19/17 08:00 68 12 06/19/17 07:00 97.3 F L 68 12 110/59 93 L 06/18/17 23:00 97.1 F L 67 16 109/71 93 L 06/18/17 19:49 97.5 F L 66 17 119/73 95 06/18/17 19:10 97 F L 70 18 119/63 95 06/18/17 17:53 73 18 139/65 94 L 06/18/17 17:03 70 16 125/61 93 L 06/18/17 15:24 98.2 F 82 18 142/68 97 Intake and Output 06/18/17 06/19/17 06/19/17 22:59 06:59 14:59 Intake Total 940 1100 358 Balance 940 1100 358 Intake: Intake, IV Titration 300 800 Amount Sodium Chloride 0.9% 1, 300 800 000 ml @ 100 mls/hr IV . Q10H [facility] Rx#:[id number] Oral 640 300 358 Other: Voiding Method Toilet Toilet # Voids 2 2 Weight 92.079 kg Head normocephalic Neck supple Lungs clear to auscultation bilaterally no wheezing or crackles Heart regular rate and rhythm S1-S2, no rub or gallop Abdomen is soft diffuse tenderness. Right-sided flank tenderness with palpation Extremities no edema Neuro alert and orientated to 3 Results CBC & Chem 7: 06/19/17 00:55 06/18/17 16:06 Labs: Abnormal Lab Results - Last 24 Hours (Table) 06/18/17 06/18/17 06/18/17 Range/Units 16:06 16:06 16:06 RDW 16.3 H (11.5-15.5) % Glucose 161 H (74-99) mg/dL POC Glucose (mg/dL) (75-99) mg/dL Urine Appearance Cloudy H (Clear) Urine Glucose (UA) 2+ H (Negative) Urine Blood Trace H (Negative) Urine Nitrite Positive H (Negative) Ur Leukocyte Esterase Large H (Negative) Urine WBC 88 H (0-5) /hpf Urine WBC Clumps Moderate H (None) /hpf Urine Bacteria Occasional H (None) /hpf Urine Yeast (Budding) Few H (None) /hpf 06/18/17 06/19/17 06/19/17 Range/Units 19:56 00:55 07:25 RDW 16.4 H (11.5-15.5) % Glucose (74-99) mg/dL POC Glucose (mg/dL) 128 H 135 H (75-99) mg/dL Urine Appearance (Clear) Urine Glucose (UA) (Negative) Urine Blood (Negative) Urine Nitrite (Negative) Ur Leukocyte Esterase (Negative) Urine WBC (0-5) /hpf Urine WBC Clumps (None) /hpf Urine Bacteria (None) /hpf Urine Yeast (Budding) (None) /hpf Microbiology - Last 24 Hours (Table) 06/18/17 16:06 Urine Culture - Preliminary Urine,Voided Thrombosis Risk Factor Assmnt - Choose All That Apply Each Risk Factor Represents 2 Points: Age 61-74 years Thrombosis Risk Factor Assessment Total Risk Factor Score: 2 Thrombosis Risk Factor Assessment Level: Low Risk Assessment and Plan Assessment: 1. Acute upper GI bleed: With abdominal pain and black tarry stools. Possible colitis noted on computed tomography scan the abdomen. Patient was started on Flagyl and Levaquin in the emergency room. Stool for occult blood is negative. Hemoglobin 13.5. GI service consulted and appreciate their input. Patient scheduled for EGD tomorrow. She is currently on IV Protonix. Patient has a history of NSAID use she takes about 6 Motrin tablets daily for chronic back pain. No previous history of peptic ulcer disease. 2. UTI: Continue Levaquin. Await urine culture results 3. Diabetes mellitus, insulin-dependent: Hold patient's blood sugar medications. She is currently on a clear liquid diet and will be nothing by mouth after midnight. Continue sliding scale coverage for now. Blood sugars are stable. 4. Essential hypertension: Continue Diovan 5. Hyperlipidemia 6. History of breast cancer status post mastectomy and chemo treatment 7. Hypothyroidism continue Synthroid GI prophylaxis Protonix and DVT prophylaxis SCDs Time with Patient: Greater than 30 (Greater than 50% of the total time spent in counseling and coordination of care.I performed an examination of the patient and discussed their management with the physician Director Of Cath Lab. I have reviewed the Physician Director Of Cath Lab's notes and agree with the documented findings and plan of care)
[2017-06-19] MEDS ORDERED: LEVOFLOXACIN 500MG-D5W PMX 500 MG in DEXTROSE/WATER 1 100ML.BAG IVPB SCH (17:00)
[2017-06-19 17:09] LABS: Glucose,Whole Blood 241 mg/dL (75-99)
[2017-06-19 20:16] LABS: Glucose,Whole Blood 183 mg/dL (75-99)
[2017-06-19] MEDS ORDERED: VALSARTAN 80 MG TAB PO SCH (21:00)
[2017-06-19] MEDS ORDERED: METHOCARBAMOL 500 MG TAB PO PRN (21:00)
[2017-06-19] MEDS ORDERED: ATORVASTATIN 80 MG TAB PO SCH (21:00)
[2017-06-19] MEDS ORDERED: EZETIMIBE 10 MG TAB PO SCH (21:00)
[2017-06-20] MEDS: traMADol 50 MG TAB PO PRN ×2 (00:16→08:39)
[2017-06-20] MEDS: SODIUM CHLORIDE 0.9% 1,000 ML IV SCH ×2 (00:20→09:11)
[2017-06-20 07:00] LABS: Glucose,Whole Blood 144 mg/dL (75-99)
[2017-06-20 07:29] LABS: Basophils % (A) 0 %; CH 28.5; CHCM 31.5; Eosinophils # (A) 0.2 k/uL (0-0.7); Eosinophils % (A) 5 %; HCT 42.2 % (34.0-46.0); HDW 2.58; HGB 13.4 gm/dL (11.4-16.0); Hypochromasia Slight; Luc # (Auto) 0.07; Luc % (Auto) 1; Lymphocytes # (A) 1.4 k/uL (1.0-4.8); Lymphocytes % (A) 28 %; MCH 28.8 pg (25.0-35.0); MCHC 31.7 g/dL (31.0-37.0); MCV 90.8 fL (80.0-100.0); Mean Platelet Volume 6.9; Monocytes # (A) 0.4 k/uL (0-1.0); Monocytes % (A) 9 %; Neutrophils % (A) 58 %; RBC 4.64 m/uL (3.80-5.40); RDW 14.9 % (11.5-15.5); WBC 5.2 k/uL (3.8-10.6); WBC (Perox) 5.32
[2017-06-20] MEDS: LEVOTHYROXINE 50 MCG TAB PO SCH (07:31)
[2017-06-20] MEDS: INSULIN LISPRO (humaLOG) 300 UNIT/3 ML VIAL SQ SCH ×2 (07:31→13:00)
[2017-06-20 07:45] LABS: ALT 35 U/L (9-52); AST 24 U/L (14-36); Alkaline Phosphatase 56 U/L (38-126); Anion Gap 5 mmol/L; Blood Urea Nitrogen 7 mg/dL (7-17); Calcium 8.6 mg/dL (8.4-10.2); Carbon Dioxide 24 mmol/L (22-30); Chloride 111 mmol/L (98-107); Glucose 156 mg/dL (74-99); Non-African American GFR(MDRD) >60 (>60 ml/min/1.73 sqM); Potassium 4.1 mmol/L (3.5-5.1); Sodium 140 mmol/L (137-145); Total Bilirubin 0.3 mg/dL (0.2-1.3); Total Protein 5.8 g/dL (6.3-8.2)
[2017-06-20] MEDS ORDERED: IV FLUID CONTINUATION 350 ML IV ONE (07:58)
[2017-06-20] MEDS ORDERED: LIDOCAINE 1% INJ 10MG/ML (20 ML MDV) ONE (08:06)
[2017-06-20] MEDS ORDERED: PROPOFOL 10 MG/ML 20 ML VIAL IV ONE (08:06)
--- NOTE | 2017-06-20 08:18 | P.PCN ---
Date of Procedure: 06/20/17 Procedure(s) Performed: BRIEF HISTORY: Patient is a 67-year-old, pleasant, white female, scheduled for an upper endoscopy for evaluation of black tarry stools for the last 24 hours duration. Her hemoglobin was stable at 13 g/dL.. PROCEDURE PERFORMED: Esophagogastroduodenoscopy. PREOPERATIVE DIAGNOSIS: Black tarry stools of 2 days' duration. IV sedation per anesthesia. PROCEDURE: After informed consent was obtained, the patient was brought into the endoscopy unit. IV sedation was administered by Anesthesia under continuous monitoring. Initially the Olympus GIF-140 video endoscope was inserted into the mouth. Esophagus intubated without any difficulty. It was gradually advanced into the stomach and duodenum and carefully examined. The bulb and the second part of the duodenum appeared normal. The scope at this time was withdrawn to the stomach, adequately insufflated with air, and upon careful examination, mucosa of the antrum, body, cardia and the fundus appeared normal. The scope was then withdrawn into the esophagus. The GE junction was located at 39 cm from the incisors. The esophagus appeared normal. There were no erosions or ulcerations seen and the patient tolerated the procedure well. IMPRESSION: 1. No evidence of peptic ulcer disease. 2. Normal-appearing esophagus, stomach and duodenum. RECOMMENDATIONS: The findings of this examination were discussed with the patient . We will continue to advance diet as tolerated.
[2017-06-20] MEDS: MONTELUKAST 10 MG TAB PO SCH (08:47)
[2017-06-20] MEDS: PANTOPRAZOLE 40 MG/10 ML VIAL IV SCH (08:47)
[2017-06-20] MEDS: metroNIDAZOLE 500 MG TAB PO SCH (08:47)
[2017-06-20] MEDS: Mirabegron [Myrbetriq] 50 MG PO SCH (08:48)
[2017-06-20 12:08] LABS: Glucose,Whole Blood 265 mg/dL (75-99)
[2017-06-20 14:24] VITALS: BP 131/91; PULSE 64; RESP 20; TEMP 97.6
--- NOTE | 2017-06-20 15:16 | P.DS ---
Providers Date of admission: 06/18/17 17:36 Expected date of discharge: 06/20/17 Attending physician: Lexie Craven Consults: 06/18/17 17:36 Consult Physician Stat Consulting Provider: Lola Hammond Consult Reason/Comments: GI bleed, colitis Do you want consulting provider notified?: Yes Primary care physician: Annelise [facility] Course: Diagnosis on discharge: #1 gastrointestinal bleeding, patient was seen by Dr. Khan she underwent EGD during this admission which was normal hemoglobin was stable no need for further evaluation at this time. #2 acute colitis evident on abdominal computed tomography scan causing abdominal pain might explain gastrointestinal bleeding patient may need colonoscopy in the next few months after inflammation is down patient received IV Levaquin and IV Flagyl during this admission she improved she was discharged home on 7 more days of oral Flagyl and oral Levaquin. #3 urinary tract infection continue Levaquin for 7 more days #4 underlying history of diabetes mellitus millimeters insulin-dependent resume #5 underlying history of hypertension #6 underlying history of hyperlipidemia #7 underlying history of hypothyroidism #7 previous history of breast cancer Hospital course: This is a 67-year-old female, patient of [facility]. She has a known past medical history of diabetes mellitus, hyperlipidemia, GERD, hypertension, obstructive sleep apnea, colitis, breast cancer status post mastectomy and chemotherapy treatment. Patient reports a 2 day history of sharp abdominal pain that radiates across the abdomen from the right to the left. And also complaining of lower back pain mostly on the right side. Patient is been having black stools for about 2 days. She reports the last stool was Thursday evening. She had a computed tomography scan of the abdomen and pelvis completed in the emergency room that reports consider colitis. Diverticulosis. Correlate for hepatic steatosis. Patient started on Levaquin and Flagyl in the emergency room. She was also found have evidence of a UTI. Patient has had previous history of GI bleed in the past due to Motrin use. When I questioned patient about Motrin, ibuprofen or Aleve patient denies any usage of it. However, per GIs note it appears that patient is taking the Motrin on a regular basis for her back pain. Stool for occult blood is negative. Hemoglobin 14.7 dropped to 13.5. Patient reporting a last colonoscopy and EGD about a year ago which was negative. Patient seen by GI service they've scheduled her for an EGD tomorrow. She denies any nausea vomiting. Denies any chest pain shortness of breath. She does admit to having some burning with urination. Also note that patient was given a dose of IV Dilaudid in the emergency room for pain and developed a rash. She was given IV Benadryl. Dilaudid has been discontinued. Patient improved significantly with IV antibiotics Flagyl and Levaquin, she was switched to oral Levaquin and oral antibiotic EGD was done by Dr. Hammond and was within normal limits patient will be discharged home on 06/20/2017. Follow-up with her primary care physician [facility] within one week Follow-up with Dr. Hammond in 2-3 weeks Patient Condition at Discharge: Fair Plan - Discharge Summary Discharge Rx Participant: No New Discharge Prescriptions: New Levofloxacin [Levaquin] 500 mg PO DAILY #7 tab metroNIDAZOLE [Flagyl] 500 mg PO TID tab Continue Aspirin EC [Ecotrin Low Dose] 81 mg PO DAILY Insulin Lispro Protamin/Lispro [humaLOG Mix 75-25 Kwikpen] 48 units SQ BID Esomeprazole Magnesium [NexIUM] 40 mg PO BID Liraglutide [Victoza 2-Dread] 1.8 mg SQ AC-BID Valsartan [Diovan] 80 mg PO HS Methocarbamol [Robaxin] 500 mg PO HS PRN PRN Reason: Pain traMADol HCL [Ultram] 50 - 100 mg PO Q6HR PRN PRN Reason: Pain Mirabegron [Myrbetriq] 50 mg PO DAILY Ezetimibe [Zetia] 10 mg PO HS Montelukast [Singulair] 10 mg PO DAILY Rosuvastatin Calcium [Crestor] 40 mg PO HS Levothyroxine Sodium [Synthroid] 50 mcg PO DAILY Discharge Medication List Aspirin EC [Ecotrin Low Dose] 81 mg PO DAILY 04/22/16 [History] Esomeprazole Magnesium [NexIUM] 40 mg PO BID 04/22/16 [History] Ezetimibe [Zetia] 10 mg PO HS 04/22/16 [History] Insulin Lispro Protamin/Lispro [humaLOG Mix 75-25 Kwikpen] 48 units SQ BID 04/22 [History] Liraglutide [Victoza 2-Dread] 1.8 mg SQ AC-BID 04/22/16 [History] Methocarbamol [Robaxin] 500 mg PO HS PRN 04/22/16 [History] Mirabegron [Myrbetriq] 50 mg PO DAILY 04/22/16 [History] Valsartan [Diovan] 80 mg PO HS 04/22/16 [History] traMADol HCL [Ultram] 50 - 100 mg PO Q6HR PRN 04/22/16 [History] Montelukast [Singulair] 10 mg PO DAILY 06/02/16 [History] Rosuvastatin Calcium [Crestor] 40 mg PO HS 06/02/16 [History] Levothyroxine Sodium [Synthroid] 50 mcg PO DAILY 06/18/17 [History] Levofloxacin [Levaquin] 500 mg PO DAILY #7 tab 06/20/17 [Rx] metroNIDAZOLE [Flagyl] 500 mg PO TID tab 06/20/17 [Rx] Follow up Appointment(s)/Referral(s): Annelise Rose DO [Primary Care Provider] - 1-2 days
== END 2017-06-20 15:40 | disposition home or self-care (01) | DRG 392 ==
LOC: EC 15:23 → 5MS5E 17:36
PROVIDERS: ADMIT Internal Medicine; ATTEND Internal Medicine
PROC: 0DJ08ZZ Inspection of Upper Intestinal Tract, Via Natural or Artificial Opening Endoscopic (ICD-10-PCS; principal; 2017-06-20 08:00)
DX: K52.9 Noninfective gastroenteritis and colitis, unspecified (principal); I10 Essential (primary) hypertension; N39.0 Urinary tract infection, site not specified; E11.9 Type 2 diabetes mellitus without complications; E78.5 Hyperlipidemia, unspecified; E03.9 Hypothyroidism, unspecified; K21.9 Gastro-esophageal reflux disease without esophagitis; G47.33 Obstructive sleep apnea (adult) (pediatric); T40.2X5A Adverse effect of other opioids, initial encounter; G89.29 Other chronic pain; M54.9 Dorsalgia, unspecified; R21 Rash and other nonspecific skin eruption; Z79.1 Long term (current) use of non-steroidal anti-inflammatories (NSAID); Z79.899 Other long term (current) drug therapy; Z79.82 Long term (current) use of aspirin; Z92.21 Personal history of antineoplastic chemotherapy; Z85.3 Personal history of malignant neoplasm of breast; Z79.4 Long term (current) use of insulin; Z98.82 Breast implant status; Z90.49 Acquired absence of other specified parts of digestive tract; Z90.710 Acquired absence of both cervix and uterus; Z88.6 Allergy status to analgesic agent; Z88.2 Allergy status to sulfonamides; Z80.9 Family history of malignant neoplasm, unspecified; Z86.2 Personal history of diseases of the blood and blood-forming organs and certain disorders involving the immune mechanism; Z90.12 Acquired absence of left breast and nipple; Z86.14 Personal history of Methicillin resistant Staphylococcus aureus infection
CPT/HCPCS: 36415; 43235; 74177; 80053; 81001; 82272; 82550; 82553; 83605; 83735; 84484; 85025; 85610; 85730; 87077; 87086; 87186; 96361; 96365; 96375; 96376; 99285

== ENCOUNTER → 2017-09-04 | Outpatient (CLI) | payer MEDICARE, OTHER ==
--- NOTE | 2017-09-04 15:07 | MM ---
Reason for exam: additional evaluation requested from prior study. Last mammogram was performed 1 year and 11 months ago. History: Patient is postmenopausal and has history of breast cancer at age 53. Family history of breast cancer in cousin at age 50. Saline implants in both breasts, 2004. Breast lift of the right breast, 2004. Reduction of the right breast, 2004. Mastectomy of the left breast, 2001. Chemotherapy, 2001. Physical Findings: Nurse did not find any significant physical abnormalities on exam. MG 3D Diag Mammo Imp W/Cad RT CC and MLO view(s) were taken of the right breast. Prior study comparison: October 09, 2015, right breast MG 3d diag mammo imp w/cad RT. April 07, 2013, mammogram, performed at [place]. The breast tissue is heterogeneously dense. This may lower the sensitivity of mammography. No significant new findings when compared with previous films. These results were verbally communicated with the patient and result sheet given to the patient on 09/04/17. ASSESSMENT: Benign, BI-RAD 2 RECOMMENDATION: Follow-up diagnostic mammogram of the right breast in 1 year.
== END | disposition home or self-care (01) ==
LOC: RADMAMWWP 14:10
PROVIDERS: ATTEND Family Medicine
DX: Z08 Encounter for follow-up examination after completed treatment for malignant neoplasm (principal); Z85.3 Personal history of malignant neoplasm of breast
CPT/HCPCS: 77065; G0279

== ENCOUNTER 2017-11-01 16:02 | Emergency (ER) | payer MEDICARE, OTHER ==
[2017-11-01 16:18] VITALS: BP 164/84; PULSE 86; RESP 18; TEMP 97.2
--- NOTE | 2017-11-01 17:47 | XR ---
EXAMINATION TYPE: XR lumbar spine 2 or 3V DATE OF EXAM: 11/01/2017 CLINICAL HISTORY: Low back pain with bilateral radiculopathy TECHNIQUE: Frontal and lateral views of the lumbar spine were obtained. COMPARISON: None FINDINGS: There are 5 lumbar type vertebral bodies identified. The lumbar spine shows satisfactory alignment without evidence of acute fracture or dislocation. Surgical fusion is seen of L3-L4 and L5- S1 as well as intervertebral fusion device at L4-L5 and resection of the posterior elements at L5-S1. Heterotopic ossification is seen laterally at these levels. There is no evidence of malalignment or vertebral body height loss. Moderate multilevel degenerative changes of the visualized thoracolumbar spine are noted.. IMPRESSION: Postoperative changes of L3-S1 with no acute fracture or malalignment of the lumbar spine .
[2017-11-01] MEDS ORDERED: HYDROcodone/APAP 5-325MG 1 EACH TAB PO STA (18:17)
--- NOTE | 2017-11-01 18:30 | ED ---
General Adult HPI - General Chief complaint: Back Pain/Injury Stated complaint: Back Pain Time Seen by Provider: 11/01/17 16:48 Source: patient, RN notes reviewed Mode of arrival: wheelchair Limitations: no limitations - History of Present Illness Initial comments: 67-year-old female presents to the emergency department for low back pain. Patient states she has had fusions of the vertebrae in the lumbar spine. Patient states this pain has been ongoing and chronic. Patient denies any injuries or falls. Patient denies any urinary or bowel function loss. She states she went to her primary care physician's office and had an x-ray. She states his x-ray read that her "bracket was broken." She describes the pain as a burning pain. Patient states she is not sure what her primary care providers plan is for her back. However she states they said she needed to see orthopedics. She has not followed up for an appointment. Patient states that she has full sensation in both her legs. She states she can walk. Patient states she has a ride home today. Patient also has a morphine ALLERGY. - Related Data Home Medications Medication Instructions Recorded Confirmed Aspirin EC [Ecotrin Low Dose] 81 mg PO DAILY 04/22/16 11/01/17 Esomeprazole Magnesium [NexIUM] 40 mg PO DAILY 04/22/16 11/01/17 Ezetimibe [Zetia] 10 mg PO HS 04/22/16 11/01/17 Liraglutide [Victoza 2-Dread] 1.8 mg SQ AC-BID 04/22/16 11/01/17 Methocarbamol [Robaxin] 500 mg PO HS PRN 04/22/16 11/01/17 Valsartan [Diovan] 80 mg PO HS 04/22/16 11/01/17 traMADol HCL [Ultram] 50 - 100 mg PO Q6HR PRN 04/22/16 11/01/17 Rosuvastatin Calcium [Crestor] 40 mg PO HS 06/02/16 11/01/17 Diazepam [Valium] 5 mg PO DAILY PRN 11/01/17 11/01/17 Fexofenadine HCl [Danielle Allergy] 180 mg PO DAILY PRN 11/01/17 11/01/17 Insulin Glargine [Lantus] 48 unit SQ BID 11/01/17 11/01/17 Levothyroxine Sodium [Synthroid] 75 mcg PO DAILY 11/01/17 11/01/17 diphenhydrAMINE [Benadryl] 25 mg PO HS 11/01/17 11/01/17 metFORMIN HCL [metFORMIN HCL ER] 1,000 mg PO BID 11/01/17 11/01/17 Previous Rx's Medication Instructions Recorded HYDROcodone/APAP 5-325MG [Alba 1 tab PO Q6HR PRN #10 tab 11/01/17 5-325] Allergies Allergy/AdvReac Type Severity Reaction Status Date / Time neomycin Allergy Unknown Verified 11/01/17 16:59 Sulfa (Sulfonamide Allergy Unknown Verified 11/01/17 16:59 Antibiotics) sulfamethoxazole Allergy Dyspnea Verified 11/01/17 16:59 [From ] trimethoprim [From ] Allergy Dyspnea Verified 11/01/17 16:59 codeine AdvReac Itching Verified 11/01/17 16:59 morphine AdvReac Itching Verified 11/01/17 16:59 Review of Systems ROS Statement: Those systems with pertinent positive or pertinent negative responses have been documented in the HPI. ROS Other: All systems not noted in ROS Statement are negative. Past Medical History Past Medical History: Cancer, Diabetes Mellitus, GERD/Reflux, Hyperlipidemia, Hypertension, Sleep Apnea/CPAP/BIPAP Additional Past Medical History / Comment(s): Lt Breast CA. HX IRREG HEART X1. USES CPAP. HX COLITIS. HAD BLACK STOOLS 2 WEEKS AGO. History of Any Multi-Drug Resistant Organisms: MRSA Date of last positivie culture/infection: 04/02/17 MDRO Source:: URINE Past Surgical History: Back Surgery, Breast Surgery, Cholecystectomy, Hysterectomy Additional Past Surgical History / Comment(s): Lt Mastectomy W/ RECONSTRUCTION; RT BREAST IMPLANT. SINUS SURG X3. Additional Past Anesthesia/Blood Transfusion Reaction / Comment(s): HX OF DAMAGE TO VOCAL CORDS POST-OP Past Psychological History: No Psychological Hx Reported Smoking Status: Never smoker Past Alcohol Use History: Rare Past Drug Use History: None Reported - Past Family History Father Sister(s) Family Medical History: Cancer Brother(s) Family Medical History: Cancer Additional Family Medical History / Comment(s): ANEURYSM General Exam Limitations: no limitations Head exam: Present: atraumatic, normocephalic, normal inspection Neck exam: Present: normal inspection. Absent: tenderness, meningismus, lymphadenopathy Respiratory exam: Present: normal lung sounds bilaterally. Absent: respiratory distress, wheezes, rales, rhonchi, stridor Cardiovascular Exam: Present: regular rate, normal rhythm, normal heart sounds. Absent: systolic murmur, diastolic murmur, rubs, gallop, clicks GI/Abdominal exam: Present: soft, normal bowel sounds. Absent: distended, tenderness, guarding, rebound, rigid Extremities exam: Present: normal inspection, normal capillary refill, other ( Bilateral pedal pulses 2+). Absent: full ROM (Slightly limited range of motion due to back pain), tenderness, pedal edema, joint swelling, calf tenderness Back exam: Absent: full ROM (Patient has limited flexion and extension of low back.), tenderness (Patient does not have tenderness to the low back.), CVA tenderness (R), CVA tenderness (L), muscle spasm, paraspinal tenderness, vertebral tenderness, rash noted Neurological exam: Present: alert, oriented X3, CN II-XII intact Psychiatric exam: Present: normal affect, normal mood Course Vital Signs 11/01/17 16:15 Temperature 97.2 F L Pulse Rate 86 Respiratory 18 Rate Blood Pressure 164/84 O2 Sat by Pulse 96 Oximetry Medical Decision Making - Medical Decision Making 67-year-old female presents to the emergency department for chief complaint of low back pain. Patient states she has had surgery while she was in [place] on her lower back. She does not have a surgeon here. She states all she was at a primary care office 2 days ago they performed an x-ray and stated that the bracket was broken. However I did order an X-ray which showed postop changes of L3 to S1 with no acute fracture or malalignment of the lumbar spine. Moderate degenerative changes are visualized in the thoracolumbar spine. Patient was given a dose of Alba here in the emergency department as she is ALLERGIC to morphine. Patient is advised to follow-up with orthopedics. If pain worsens or she notices changes in bladder or bowel function patient is to return to the emergency department. Disposition Clinical Impression: Lumbar back pain Disposition: HOME SELF-CARE Condition: Good Instructions: Chronic Back Pain (ED) Additional Instructions: Please return to the emergency department if you notice any worsening symptoms. Please return to the emergency department if you notice changes or loss of function of bladder or bowel. Please follow-up with orthopedics in one to 2 days. Prescriptions: HYDROcodone/APAP 5-325MG [Alba 5-325] 1 tab PO Q6HR PRN #10 tab PRN Reason: Pain Referrals: Annelise Rose DO [Primary Care Provider] - 1-2 days Mia Garvey, PAC [PHYSICIAN ACCOUNTING INSTRUCTOR] - 1-2 days Time of Disposition: 18:31
== END 2017-11-01 18:46 | disposition home or self-care (01) ==
LOC: EC 16:02
DX: M54.5 Low back pain (principal); M47.815 Spondylosis without myelopathy or radiculopathy, thoracolumbar region; E78.5 Hyperlipidemia, unspecified; I10 Essential (primary) hypertension; E11.9 Type 2 diabetes mellitus without complications; K21.9 Gastro-esophageal reflux disease without esophagitis; G47.30 Sleep apnea, unspecified; Z79.4 Long term (current) use of insulin; Z79.82 Long term (current) use of aspirin; Z79.899 Other long term (current) drug therapy; Z88.1 Allergy status to other antibiotic agents; Z88.2 Allergy status to sulfonamides; Z88.5 Allergy status to narcotic agent; Z86.14 Personal history of Methicillin resistant Staphylococcus aureus infection; Z98.1 Arthrodesis status; Z85.3 Personal history of malignant neoplasm of breast; Z90.12 Acquired absence of left breast and nipple
CPT/HCPCS: 72100; 99283

== ENCOUNTER 2017-11-19 17:38 | Emergency (ER) | payer MEDICARE, OTHER ==
[2017-11-19] MEDS ORDERED: MORPHINE SULFATE 4MG/4ML SYRG IVP STA (18:55)
[2017-11-19] MEDS ORDERED: DIAZEPAM 5 MG/ML 2 ML INJ IM ONE (18:57)
[2017-11-19] MEDS ORDERED: diphenhydrAMINE 25 MG CAP PO STA (18:58)
--- NOTE | 2017-11-19 19:41 | CT ---
EXAMINATION TYPE: CT lumbar spine wo con DATE OF EXAM: 11/19/2017 COMPARISON: NONE HISTORY: Lower back pain that radiates into legs. CT DLP: 1306.9 mGycm CONTRAST: None TECHNIQUE: CT of the lumbar spine is performed on a spiral scan at 3 mm thick sections. Reconstructed images are performed in the coronal and sagittal planes. FINDINGS: T11-T12: No focal disc herniation or significant disc bulge is evident. No spinal canal stenosis or n eural foraminal stenosis present. T12-L1: No focal disc herniation or significant disc bulge is evident. No spinal canal stenosis or neural foraminal stenosis is present. L1-L2: No focal disc herniation is evident. Some hard disc material may be present in the right parac entral region with minimal thecal sac contact. No AP spinal canal stenosis present. Mild facet hypert rophy is present with posterior lateral thecal sac compression on the right. Neural foramen are paten t. L2-L3: Minimal disc bulge has anterior thecal sac contact. Facet hypertrophy is ligamentum flavum lax ity which is causing posterior lateral thecal sac compression. No stenosis is present. The neural for amen are patent. L3-L4: Screws are present within the vertebral body. There is narrowing of the disc height. No negative developer ior wall displacement is evident. Facet hypertrophy is present. There is severe stenosis of the right neural foramen. L4-L5: Mild disc bulge is present with anterior thecal sac contact. Facet hypertrophy is present. The re is facet screws present. No spinal canal stenosis present. Neural foramen are patent. L5-S1: Degenerative disc changes present. The foramen are patent. No spinal canal stenosis is present . Postsurgical changes are present. Vertebral body alignment is straightened. Sacroiliac joint vacuum phenomenon is present. IMPRESSION: Degenerative disc changes present discussed above. 2. Right foraminal stenosis C3-4. 3. Postsurgical changes. No acute osseous abnormality.
--- NOTE | 2017-11-19 19:54 | ED ---
General Adult HPI - General Chief complaint: Back Pain/Injury Stated complaint: Back/Hip/Leg Pain Time Seen by Provider: 11/19/17 18:34 Source: patient, RN notes reviewed Mode of arrival: ambulatory Limitations: no limitations - History of Present Illness Initial comments: 67-year-old female presents to the emergency department for a chief complaint of low back pain. Patient has a history of lumbar surgery years ago in [place]. Patient was last seen for this here about 3 weeks ago in the emergency department. An x-ray was obtained at that time which showed no abnormalities. Since that time she has been taking tramadol. She was also given Bruno but she stated that was too strong. She was to follow-up with orthopedics but said she was not able to get an appointment. Today patient states pain is radiating down both legs into the anterior thigh. Patient denies sharp pains through the buttock. Patient denies changes in bladder or bowel function. Patient denies saddle anesthesia. Patient states today the pain was bad in needed some relief so she came to the emergency Department. Patient has no other complaints at this time. Patient has full range of motion of the feet and toes. Patient has full sensation in the feet and toes. - Related Data Home Medications Medication Instructions Recorded Confirmed Aspirin EC [Ecotrin Low Dose] 81 mg PO DAILY 04/22/16 11/19/17 Esomeprazole Magnesium [NexIUM] 40 mg PO DAILY 04/22/16 11/19/17 Ezetimibe [Zetia] 10 mg PO HS 04/22/16 11/19/17 Liraglutide [Victoza 2-Dread] 1.8 mg SQ AC-BID 04/22/16 11/19/17 Methocarbamol [Robaxin] 500 mg PO HS PRN 04/22/16 11/19/17 Valsartan [Diovan] 80 mg PO HS 04/22/16 11/19/17 traMADol HCL [Ultram] 50 - 100 mg PO Q6HR PRN 04/22/16 11/19/17 Rosuvastatin Calcium [Crestor] 40 mg PO HS 06/02/16 11/19/17 Diazepam [Valium] 5 mg PO DAILY PRN 11/01/17 11/19/17 Fexofenadine HCl [Danielle Allergy] 180 mg PO DAILY PRN 11/01/17 11/19/17 Insulin Glargine [Lantus] 48 unit SQ BID 11/01/17 11/19/17 Levothyroxine Sodium [Synthroid] 75 mcg PO DAILY 11/01/17 11/19/17 diphenhydrAMINE [Benadryl] 25 mg PO HS 11/01/17 11/19/17 metFORMIN HCL [metFORMIN HCL ER] 1,000 mg PO BID 11/01/17 11/19/17 Previous Rx's Medication Instructions Recorded HYDROcodone/APAP 5-325MG [Bruno 1 tab PO Q6HR PRN #10 tab 11/01/17 5-325] Cyclobenzaprine [Flexeril] 10 mg PO TID #20 tab 11/19/17 Ibuprofen 600 mg PO Q8H #20 tablet 11/19/17 Allergies Allergy/AdvReac Type Severity Reaction Status Date / Time neomycin Allergy Unknown Verified 11/19/17 17:51 Sulfa (Sulfonamide Allergy Unknown Verified 11/19/17 17:51 Antibiotics) sulfamethoxazole Allergy Dyspnea Verified 11/19/17 17:51 [From ] trimethoprim [From ] Allergy Dyspnea Verified 11/19/17 17:51 codeine AdvReac Itching Verified 11/19/17 17:51 morphine AdvReac Itching Verified 11/19/17 17:51 Review of Systems ROS Statement: Those systems with pertinent positive or pertinent negative responses have been documented in the HPI. ROS Other: All systems not noted in ROS Statement are negative. Past Medical History Past Medical History: Cancer, Diabetes Mellitus, GERD/Reflux, Hyperlipidemia, Hypertension, Sleep Apnea/CPAP/BIPAP Additional Past Medical History / Comment(s): Lt Breast CA. HX IRREG HEART X1. USES CPAP. HX COLITIS. HAD BLACK STOOLS 2 WEEKS AGO. History of Any Multi-Drug Resistant Organisms: MRSA Date of last positivie culture/infection: 04/02/17 MDRO Source:: URINE Past Surgical History: Back Surgery, Breast Surgery, Cholecystectomy, Hysterectomy Additional Past Surgical History / Comment(s): Lt Mastectomy W/ RECONSTRUCTION; RT BREAST IMPLANT. SINUS SURG X3. Additional Past Anesthesia/Blood Transfusion Reaction / Comment(s): HX OF DAMAGE TO VOCAL CORDS POST-OP Past Psychological History: No Psychological Hx Reported Smoking Status: Never smoker Past Alcohol Use History: Rare Past Drug Use History: None Reported - Past Family History Father Sister(s) Family Medical History: Cancer Brother(s) Family Medical History: Cancer Additional Family Medical History / Comment(s): ANEURYSM General Exam Limitations: no limitations Respiratory exam: Present: normal lung sounds bilaterally. Absent: respiratory distress, wheezes, rales, rhonchi, stridor Cardiovascular Exam: Present: regular rate, normal rhythm, normal heart sounds. Absent: systolic murmur, diastolic murmur, rubs, gallop, clicks Extremities exam: Present: normal inspection, full ROM (Of the lower extremity) , normal capillary refill (Of the lower extremities bilaterally), other ( Patient has full sensation to light touch of the lower extremities bilaterally) . Absent: tenderness, pedal edema, joint swelling, calf tenderness Back exam: Present: tenderness (Tenderness along the lumbar spine.), vertebral tenderness (Tenderness along the lumbar spine). Absent: full ROM (Limited flexion and extension lateral bending and twisting of the lumbar spine.), CVA tenderness (R), CVA tenderness (L), rash noted Neurological exam: Present: alert, oriented X3, CN II-XII intact Psychiatric exam: Present: normal affect, normal mood Course Vital Signs 11/19/17 11/19/17 17:48 19:00 Temperature 97.5 F L Pulse Rate 82 Respiratory 20 Rate Blood Pressure 148/84 O2 Sat by Pulse 99 Oximetry Medical Decision Making - Medical Decision Making 67 her old female says the emergency department for a chief complaint of low back pain. Patient was seen for similar symptoms 3 weeks ago and an x-ray was obtained which showed no osseous abnormalities.. She has been taking tramadol since that time as well as Bruno intermittently. Patient had back surgery years ago in [place]. Patient denies bladder or bowel dysfunction. Patient denies saddle anesthesia. Patient was given 4 mg of morphine and Benadryl. She was asked if she is ALLERGIC and she said she could take the morphine with Benadryl because sometimes she gets itching. Patient states the morphine and Benadryl helped her feel better. A CT lumbar spine was obtained. CT of the lumbar spine showed narrowing of the disc height between L3 and L4. 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 L4 to L5 shows mild disc bulge with anterior thecal sac contact. No spinal stenosis and neural foramens are patent. It shows no acute osseous abnormalities. Postsurgical changes are present. Patient will follow up with Dr. Rojas. She was given his phone number and office location. She will take ibuprofen and tramadol until that time. Patient states she only takes liquid ibuprofen as she has had problems with solid ibuprofen in the past. Patient states she will not take the Flexeril as it makes her feel loopy. Therefore these prescriptions were not given. Patient has liquid Motrin at home and does not need a prescription at this time. Patient is to follow up with primary care in 1-2 days. Disposition Clinical Impression: Mechanical back pain Disposition: HOME SELF-CARE Condition: Good Instructions: Chronic Back Pain (ED) Additional Instructions: Please take liquid ibuprofen and tramadol as directed for pain relief. Please follow-up with Dr. Rojas spine surgeon. Please follow up with primary care in 1 -2 days. Please return to the emergency department if symptoms worsen or you develop bladder or bowel dysfunction. Prescriptions: Cyclobenzaprine [Flexeril] 10 mg PO TID #20 tab Ibuprofen 600 mg PO Q8H #20 tablet Referrals: Annelise Rose DO [Primary Care Provider] - 1-2 days Bronson Rojas DO [Doctor of Osteopathic Medicine] - 1-2 days Time of Disposition: 19:53
[2017-11-19 20:20] VITALS: BP 144/56; PULSE 75; RESP 18; TEMP 98
== END 2017-11-19 20:15 | disposition home or self-care (01) ==
LOC: EC 17:38
DX: M54.5 Low back pain (principal); M48.061 Spinal stenosis, lumbar region without neurogenic claudication; M48.02 Spinal stenosis, cervical region; E11.9 Type 2 diabetes mellitus without complications; E78.5 Hyperlipidemia, unspecified; I10 Essential (primary) hypertension; G47.30 Sleep apnea, unspecified; Z99.89 Dependence on other enabling machines and devices; Z85.3 Personal history of malignant neoplasm of breast; Z86.14 Personal history of Methicillin resistant Staphylococcus aureus infection; Z98.890 Other specified postprocedural states; Z79.82 Long term (current) use of aspirin; Z79.899 Other long term (current) drug therapy; Z79.4 Long term (current) use of insulin; Z88.1 Allergy status to other antibiotic agents; Z88.2 Allergy status to sulfonamides; Z88.5 Allergy status to narcotic agent
CPT/HCPCS: 99284; 72131; J2270

== ENCOUNTER 2017-12-02 07:32 | Day surgery (SDC) | payer MEDICARE, OTHER ==
[2017-12-01 08:20] VITALS: BMI 35.4
[~2017-12-02 07:32] MED LIST: LACTATED RINGERS 1,000 ML IV SCH; LIDOCAINE 1% 20 ML VIAL (10MG/ML) FOR IV START INTRADERMA PRN
[2017-12-02 08:14] VITALS: RESP 18; TEMP 97.9
[2017-12-02 08:23] LABS: Glucose,Whole Blood 120 mg/dL (75-99)
[2017-12-02] MEDS ORDERED: LACTATED RINGERS 1,000 ML IV ONE ×2 (08:23)
[2017-12-02] MEDS ORDERED: PROPOFOL 10 MG/ML 20 ML VIAL IV ONE (08:40)
--- NOTE | 2017-12-02 09:06 | P.PCN ---
Date of Procedure: 12/02/17 Procedure(s) Performed: BRIEF HISTORY: Patient is a 67-year-old pleasant white female, scheduled for an elective colonoscopy as a part of evaluation of intermittent rectal burning for the last few weeks duration. PROCEDURE PERFORMED: Colonoscopy. PREOPERATIVE DIAGNOSIS: Intermittent rectal bleeding. IV sedation per Anesthesia. PROCEDURE: After informed consent was obtained, the patient, was brought into the endoscopy unit. IV sedation was administered by Anesthesia under continuous monitoring. Digital rectal examination was normal. Initially the Olympus CF- 160 flexible video colonoscope was then inserted in the rectum, gradually advanced into the cecum without any difficulty. Careful examination was performed as the scope was gradually being withdrawn. Ileocecal valve and the appendiceal orifice were visualized and appeared normal. Prep was excellent. Mucosa of the cecum, ascending colon, transverse colon, descending colon, sigmoid colon, and rectum appeared normal. Retroflexion was performed in the rectum and small internal hemorrhoids were seen. The patient tolerated the procedure well. IMPRESSION: Normal-appearing colon from rectum to cecum with no evidence of colorectal neoplasia. Small internal hemorrhoids. RECOMMENDATIONS: Findings of this examination were discussed with the patient as well as a family. She was advised to be on a high-fiber diet and take fiber supplements on a regular basis. She can have a repeat screening colonoscopy in 10 years.
[2017-12-02 09:22] LABS: Glucose,Whole Blood 117 mg/dL (75-99)
[2017-12-02 09:46] VITALS: BP 166/83; PULSE 72
== END 2017-12-02 10:18 | disposition home or self-care (01) ==
LOC: ORWHC2ENDO 07:32
PROVIDERS: ATTEND Internal Medicine Gastroenterology
DX: K64.8 Other hemorrhoids (principal); K62.5 Hemorrhage of anus and rectum; I10 Essential (primary) hypertension; E78.5 Hyperlipidemia, unspecified; E11.9 Type 2 diabetes mellitus without complications; K21.9 Gastro-esophageal reflux disease without esophagitis; Z79.82 Long term (current) use of aspirin; Z79.890 Hormone replacement therapy; Z79.4 Long term (current) use of insulin; Z79.1 Long term (current) use of non-steroidal anti-inflammatories (NSAID); Z79.891 Long term (current) use of opiate analgesic; Z79.899 Other long term (current) drug therapy; Z88.1 Allergy status to other antibiotic agents; Z88.2 Allergy status to sulfonamides
CPT/HCPCS: 45378; J2704

== ENCOUNTER 2018-06-21 17:00 | Emergency (ER) | payer MEDICARE, OTHER ==
[2018-06-21 17:07] VITALS: RESP 16; TEMP 98.4
--- NOTE | 2018-06-21 17:36 | ED ---
Back Pain [facility] - General Chief Complaint: Back Pain/Injury Stated Complaint: Back pain Time Seen by Provider: 06/21/18 17:29 Source: patient, RN notes reviewed, old records reviewed Limitations: no limitations - History of Present Illness Initial Comments: This is a 68-year-old female to the ER for evaluation. Patient closely for evaluation with back pain. Chronic back pain acute on chronic back pain with no new trauma no neurological deficit no loss of bladder urine. No recent travel history no sick contacts. No change in medications. MD Complaint: back pain -: days(s) Similar Symptoms Previously: Yes Place: home Radiation: none Severity: mild Severity scale (1-10): 5 Quality: aching Consistency: constant Improves With: none Worsens With: movement, walking Associated Symptoms: denies other symptoms - Related Data Home Medications Medication Instructions Recorded Confirmed Aspirin EC [Ecotrin Low Dose] 81 mg PO DAILY 04/22/16 06/21/18 Esomeprazole Magnesium [NexIUM] 40 mg PO BID 04/22/16 06/21/18 Liraglutide [Victoza 2-Dread] 1.8 mg SQ DAILY 04/22/16 06/21/18 Methocarbamol [Robaxin] 500 mg PO BID PRN 04/22/16 06/21/18 traMADol HCL [Ultram] 50 mg PO DAILY PRN 04/22/16 06/21/18 Rosuvastatin Calcium [Crestor] 40 mg PO DAILY 06/02/16 06/21/18 Insulin Glargine [Lantus] 50 unit SQ DAILY 11/01/17 06/21/18 Levothyroxine Sodium [Synthroid] 75 mcg PO DAILY 11/01/17 06/21/18 metFORMIN HCL [metFORMIN HCL ER] 1,000 mg PO BID 11/01/17 06/21/18 Canagliflozin [Invokana] 100 mg PO DAILY 06/21/18 06/21/18 Celecoxib [CeleBREX] 200 mg PO DAILY 06/21/18 06/21/18 DULoxetine HCL [Cymbalta] 60 mg PO DAILY 06/21/18 06/21/18 Ibuprofen [Motrin Ib] 200 mg PO Q6H PRN 06/21/18 06/21/18 Mirabegron [Myrbetriq] 50 mg PO DAILY 06/21/18 06/21/18 Montelukast [Singulair] 10 mg PO DAILY 06/21/18 06/21/18 Valsartan [Diovan] 40 mg PO DAILY 06/21/18 06/21/18 Allergies Allergy/AdvReac Type Severity Reaction Status Date / Time neomycin Allergy Itching Verified 06/21/18 17:53 Sulfa (Sulfonamide Allergy Dyspnea Verified 06/21/18 17:53 Antibiotics) sulfamethoxazole Allergy Dyspnea Verified 06/21/18 17:53 [From ] trimethoprim [From ] Allergy Dyspnea Verified 06/21/18 17:53 Review of Systems ROS Statement: Those systems with pertinent positive or pertinent negative responses have been documented in the HPI. ROS Other: All systems not noted in ROS Statement are negative. Past Medical History Past Medical History: Cancer, Diabetes Mellitus, GERD/Reflux, Hyperlipidemia, Hypertension, Sleep Apnea/CPAP/BIPAP Additional Past Medical History / Comment(s): Lt Breast CA. HX IRREG HEART X1. USES CPAP. HX COLITIS. HAD BLACK STOOLS 4 WEEKS AGO. History of Any Multi-Drug Resistant Organisms: MRSA Date of last positivie culture/infection: 04/02/17 MDRO Source:: URINE Past Surgical History: Back Surgery, Breast Surgery, Cholecystectomy, Hysterectomy Additional Past Surgical History / Comment(s): Lt Mastectomy W/ RECONSTRUCTION; RT BREAST IMPLANT. SINUS SURG X3., colonoscopy Past Anesthesia/Blood Transfusion Reactions: Previous Problems w/ Anesthesia Additional Past Anesthesia/Blood Transfusion Reaction / Comment(s): HX OF DAMAGE TO VOCAL CORDS POST-OP BACK SURGERY Past Psychological History: No Psychological Hx Reported Smoking Status: Never smoker - Past Family History Father Sister(s) Family Medical History: Cancer Brother(s) Family Medical History: Cancer Additional Family Medical History / Comment(s): ANEURYSM General Exam Limitations: no limitations General appearance: alert, in no apparent distress Head exam: Present: atraumatic, normocephalic, normal inspection Eye exam: Present: normal appearance, PERRL, EOMI. Absent: scleral icterus, conjunctival injection, periorbital swelling ENT exam: Present: normal exam, mucous membranes moist Neck exam: Present: normal inspection. Absent: tenderness, meningismus, lymphadenopathy Respiratory exam: Present: normal lung sounds bilaterally. Absent: respiratory distress, wheezes, rales, rhonchi, stridor Cardiovascular Exam: Present: regular rate, normal rhythm, normal heart sounds. Absent: systolic murmur, diastolic murmur, rubs, gallop, clicks GI/Abdominal exam: Present: soft, normal bowel sounds. Absent: distended, tenderness, guarding, rebound, rigid Extremities exam: Present: normal inspection, full ROM, normal capillary refill. Absent: tenderness, pedal edema, joint swelling, calf tenderness Back exam: Present: normal inspection Neurological exam: Present: alert, oriented X3, CN II-XII intact Psychiatric exam: Present: normal affect, normal mood Skin exam: Present: warm, dry, intact, normal color. Absent: rash Course Vital Signs 06/21/18 17:04 Temperature 98.4 F Pulse Rate 92 Respiratory 16 Rate Blood Pressure 116/80 O2 Sat by Pulse 96 Oximetry - Reevaluation(s) Reevaluation #1: 06/21/18 18:20 Patient denies new trauma, medical record is reviewed Reevaluation #2: 06/21/18 18:20 Patient states she's is here for pain control Medical Decision Making - Medical Decision Making 68 female the ER for acute on chronic back pain. At this point patient can be discharged home as pain is controlled, no neurological deficit patient is able to ambulate Disposition Clinical Impression: Mechanical back pain, Mid back pain Disposition: HOME SELF-CARE Condition: Good Instructions: Chronic Back Pain (ED), Acute Low Back Pain (ED) Is patient prescribed a controlled substance at d/c from ED?: No Referrals: Annelise Rose DO [Primary Care Provider] - 1-2 days
[2018-06-21] MEDS ORDERED: traMADol 50 MG TAB PO STA (17:52)
[2018-06-21] MEDS ORDERED: KETOROLAC 60 MG/2 ML VIAL IM STA (17:52)
[2018-06-21 19:14] VITALS: BP 146/87; PULSE 73
== END 2018-06-21 19:14 | disposition home or self-care (01) ==
LOC: EC 17:00
DX: G89.29 Other chronic pain (principal); M54.9 Dorsalgia, unspecified; E78.5 Hyperlipidemia, unspecified; I10 Essential (primary) hypertension; E11.9 Type 2 diabetes mellitus without complications; K21.9 Gastro-esophageal reflux disease without esophagitis; G47.30 Sleep apnea, unspecified; Z88.1 Allergy status to other antibiotic agents; Z88.2 Allergy status to sulfonamides; Z79.1 Long term (current) use of non-steroidal anti-inflammatories (NSAID); Z79.4 Long term (current) use of insulin; Z79.899 Other long term (current) drug therapy; Z86.14 Personal history of Methicillin resistant Staphylococcus aureus infection; Z85.3 Personal history of malignant neoplasm of breast; Z90.12 Acquired absence of left breast and nipple; Z98.82 Breast implant status; Z98.890 Other specified postprocedural states
CPT/HCPCS: 99284; 96372; J1885

== ENCOUNTER 2018-07-29 19:14 | Emergency (ER) | payer MEDICARE, OTHER ==
[2018-07-29 19:34] VITALS: BP 134/82; PULSE 93; RESP 18; TEMP 97.8
[2018-07-29 19:37] LABS: Glucose,Whole Blood 155 mg/dL (75-99)
[2018-07-29] MEDS ORDERED: SODIUM CHLORIDE 0.9% 1,000 ML BAG ONE (23:00)
[2018-07-30 02:08] LABS: ALT 29 U/L (9-52); AST 37 U/L (14-36); Albumin 4.3 g/dL (3.5-5.0); Alkaline Phosphatase 77 U/L (38-126); Amylase 53 U/L (30-110); Anion Gap 11 mmol/L; Blood Urea Nitrogen 15 mg/dL (7-17); Calcium 9.6 mg/dL (8.4-10.2); Carbon Dioxide 28 mmol/L (22-30); Chloride 99 mmol/L (98-107); Glucose 136 mg/dL (74-99); Lipase 262 U/L (23-300); Potassium 4.4 mmol/L (3.5-5.1); Sodium 138 mmol/L (137-145); Total Bilirubin 0.5 mg/dL (0.2-1.3); Total Protein 8.3 g/dL (6.3-8.2)
[2018-07-30 02:34] LABS: Basophils % (A) 0 %; Eosinophils # (A) 0.3 k/uL (0-0.7); Eosinophils % (A) 2 %; HCT 45.4 % (34.0-46.0); HGB 14.3 gm/dL (11.4-16.0); Lymphocytes # (A) 1.6 k/uL (1.0-4.8); Lymphocytes % (A) 13 %; MCHC 31.5 g/dL (31.0-37.0); MCV 85.9 fL (80.0-100.0); Mean Platelet Volume 6.5; Monocytes # (A) 0.6 k/uL (0-1.0); Monocytes % (A) 5 %; Neutrophils # (A) 9.3 k/uL (1.3-7.7); Neutrophils % (A) 78 %; Platelet Count 250 k/uL (150-450); RBC 5.29 m/uL (3.80-5.40); RDW 15.4 % (11.5-15.5); WBC 11.9 k/uL (3.8-10.6)
[2018-08-02 08:04] LABS: Glucose,Whole Blood 116 mg/dL (75-99)
== END 2018-07-30 00:53 | disposition home or self-care (01) ==
LOC: EC 19:14
DX: R11.2 Nausea with vomiting, unspecified (principal); T40.2X5A Adverse effect of other opioids, initial encounter
CPT/HCPCS: 36415; 80053; 82150; 83690; 85025; 96361; 96374; 96375; 99284

== ENCOUNTER 2018-08-20 09:34 | Emergency (ER) | payer MEDICARE, OTHER ==
[2018-08-20] MEDS ORDERED: ONDANSETRON 4 MG/2 ML VIAL IVP STA ×2 (09:52→10:35)
[2018-08-20] MEDS ORDERED: SODIUM CHLORIDE 0.9% 2,000 ML IV STA (09:52)
[2018-08-20 10:08] LABS: Basophils # (A) 0.1 k/uL (0-0.2); Basophils % (A) 1 %; Eosinophils # (A) 0.3 k/uL (0-0.7); Eosinophils % (A) 4 %; HCT 43.8 % (34.0-46.0); HGB 14.3 gm/dL (11.4-16.0); Lymphocytes # (A) 1.8 k/uL (1.0-4.8); Lymphocytes % (A) 20 %; MCH 28.2 pg (25.0-35.0); MCHC 32.6 g/dL (31.0-37.0); MCV 86.6 fL (80.0-100.0); Mean Platelet Volume 6.8; Monocytes # (A) 0.4 k/uL (0-1.0); Monocytes % (A) 5 %; Neutrophils # (A) 6.6 k/uL (1.3-7.7); Neutrophils % (A) 70 %; Platelet Count 302 k/uL (150-450); RBC 5.06 m/uL (3.80-5.40); RDW 15.7 % (11.5-15.5); WBC 9.3 k/uL (3.8-10.6)
[2018-08-20 10:16] LABS: Albumin 3.9 g/dL (3.5-5.0); Calcium 9.4 mg/dL (8.4-10.2); Potassium 4.1 mmol/L (3.5-5.1); Total Bilirubin 0.9 mg/dL (0.2-1.3); Total Protein 7.5 g/dL (6.3-8.2)
--- NOTE | 2018-08-20 10:23 | ED ---
Nausea/Vomiting/Diarrhea HPI - General Chief complaint: Nausea/Vomiting/Diarrhea Stated complaint: vomiting Time Seen by Provider: 08/20/18 09:45 Source: patient, RN notes reviewed Mode of arrival: ambulatory Limitations: no limitations - History of Present Illness Initial comments: 68-year-old female presents emergency from chief complaint nausea vomiting. Patient states she had a morphine pump placed states that she had her first dose on Thursday states she's been sick ever sent. She was seen by Dr. Andrade her neurologist yesterday in which they lowered her dose of morphine. Patient states she continues to vomit. Patient denies any chest pain or shortness of breath. Patient states she does feel unsteady, dehydrated. Patient states that she has no oral antibiotics. Denies fever or chills. - Related Data Home Medications Medication Instructions Recorded Confirmed Aspirin EC [Ecotrin Low Dose] 81 mg PO DAILY 04/22/16 08/20/18 Esomeprazole Magnesium [NexIUM] 40 mg PO BID 04/22/16 08/20/18 Liraglutide [Victoza 2-Dread] 1.8 mg SQ DAILY 04/22/16 08/20/18 Methocarbamol [Robaxin] 500 mg PO BID PRN 04/22/16 08/20/18 traMADol HCL [Ultram] 50 mg PO DAILY PRN 04/22/16 08/20/18 Rosuvastatin Calcium [Crestor] 40 mg PO DAILY 06/02/16 08/20/18 Insulin Glargine [Lantus] 50 unit SQ DAILY 11/01/17 08/20/18 Levothyroxine Sodium [Synthroid] 75 mcg PO DAILY 11/01/17 08/20/18 Canagliflozin [Invokana] 100 mg PO DAILY 06/21/18 08/20/18 Celecoxib [CeleBREX] 200 mg PO DAILY 06/21/18 08/20/18 DULoxetine HCL [Cymbalta] 60 mg PO DAILY 06/21/18 08/20/18 Ibuprofen [Motrin Ib] 200 mg PO Q6H PRN 06/21/18 08/20/18 Mirabegron [Myrbetriq] 50 mg PO DAILY 06/21/18 08/20/18 Montelukast [Singulair] 10 mg PO DAILY 06/21/18 08/20/18 Valsartan [Diovan] 40 mg PO DAILY 06/21/18 08/20/18 Morphine Pain Pump 1 dose INTRATHECA DIRECTED 08/20/18 08/20/18 Nocdurna 27.7 mcg SUBLINGUAL HS 08/20/18 08/20/18 metFORMIN HCL 1,000 mg PO BID 08/20/18 08/20/18 Allergies Allergy/AdvReac Type Severity Reaction Status Date / Time neomycin Allergy Itching Verified 08/20/18 11:07 Sulfa (Sulfonamide Allergy Dyspnea Verified 08/20/18 11:07 Antibiotics) sulfamethoxazole Allergy Dyspnea Verified 08/20/18 11:07 [From ] trimethoprim [From ] Allergy Dyspnea Verified 08/20/18 11:07 morphine AdvReac Nausea & Verified 08/20/18 11:07 Vomiting Review of Systems ROS Statement: Those systems with pertinent positive or pertinent negative responses have been documented in the HPI. ROS Other: All systems not noted in ROS Statement are negative. Past Medical History Past Medical History: Cancer, Diabetes Mellitus, GERD/Reflux, Hyperlipidemia, Hypertension, Sleep Apnea/CPAP/BIPAP Additional Past Medical History / Comment(s): Lt Breast CA. HX IRREG HEART X1. USES CPAP. HX COLITIS. HAD BLACK STOOLS 4 WEEKS AGO, herniated disc in back History of Any Multi-Drug Resistant Organisms: MRSA Date of last positivie culture/infection: 04/02/17 MDRO Source:: URINE Past Surgical History: Back Surgery, Breast Surgery, Cholecystectomy, Hysterectomy Additional Past Surgical History / Comment(s): Lt Mastectomy W/ RECONSTRUCTION; RT BREAST IMPLANT. SINUS SURG X3., colonoscopy, pain pump implant Past Anesthesia/Blood Transfusion Reactions: Previous Problems w/ Anesthesia Additional Past Anesthesia/Blood Transfusion Reaction / Comment(s): HX OF DAMAGE TO VOCAL CORDS POST-OP BACK SURGERY Past Psychological History: No Psychological Hx Reported Smoking Status: Never smoker Past Alcohol Use History: None Reported Past Drug Use History: None Reported - Past Family History Father Sister(s) Family Medical History: Cancer Brother(s) Family Medical History: Cancer Additional Family Medical History / Comment(s): ANEURYSM General Exam Limitations: no limitations General appearance: alert, in no apparent distress Head exam: Present: atraumatic, normocephalic, normal inspection ENT exam: Present: normal exam, normal oropharynx, mucous membranes moist Neck exam: Present: normal inspection, full ROM. Absent: tenderness, meningismus, lymphadenopathy Respiratory exam: Present: normal lung sounds bilaterally. Absent: respiratory distress, wheezes, rales, rhonchi, stridor Cardiovascular Exam: Present: regular rate, normal rhythm, normal heart sounds. Absent: systolic murmur, diastolic murmur, rubs, gallop, clicks GI/Abdominal exam: Present: soft, normal bowel sounds, other (Healed incision left lower abdomen, no erythema no tenderness). Absent: distended, tenderness, guarding, rebound, rigid Back exam: Absent: CVA tenderness (R), CVA tenderness (L) Neurological exam: Present: alert, oriented X3, CN II-XII intact Skin exam: Present: warm, dry, intact, normal color. Absent: rash Course Vital Signs 08/20/18 09:35 Temperature 98.0 F Pulse Rate 99 Respiratory 20 Rate Blood Pressure 180/77 O2 Sat by Pulse 95 Oximetry Medical Decision Making - Medical Decision Making 68-year-old female presented for nausea vomiting. Patient has nausea vomiting induced by pain pump. Patient is improved after IV fluids and antiemetics. Patient be given scopolamine patch and Zofran upon discharge. - Lab Data Result diagrams: 08/20/18 09:56 08/20/18 09:56 Lab Results 08/20/18 08/20/18 08/20/18 Range/Units 09:56 09:56 10:05 WBC 9.3 (3.8-10.6) k/uL RBC 5.06 (3.80-5.40) m/uL Hgb 14.3 (11.4-16.0) gm/dL Hct 43.8 (34.0-46.0) % MCV 86.6 (80.0-100.0) fL MCH 28.2 (25.0-35.0) pg MCHC 32.6 (31.0-37.0) g/dL RDW 15.7 H (11.5-15.5) % Plt Count 302 (150-450) k/uL Neutrophils % 70 % Lymphocytes % 20 % Monocytes % 5 % Eosinophils % 4 % Basophils % 1 % Neutrophils # 6.6 (1.3-7.7) k/uL Lymphocytes # 1.8 (1.0-4.8) k/uL Monocytes # 0.4 (0-1.0) k/uL Eosinophils # 0.3 (0-0.7) k/uL Basophils # 0.1 (0-0.2) k/uL Sodium 140 (137-145) mmol/L Potassium 4.1 (3.5-5.1) mmol/L Chloride 100 (98-107) mmol/L Carbon Dioxide 32 H (22-30) mmol/L Anion Gap 8 mmol/L BUN 11 (7-17) mg/dL Creatinine 0.84 (0.52-1.04) mg/dL Est GFR (CKD-EPI)AfAm 83 (>60 ml/min/1.73 sqM) Est GFR (CKD-EPI)NonAf 72 (>60 ml/min/1.73 sqM) Glucose 196 H (74-99) mg/dL Calcium 9.4 (8.4-10.2) mg/dL Total Bilirubin 0.9 (0.2-1.3) mg/dL AST 36 (14-36) U/L ALT 30 (9-52) U/L Alkaline Phosphatase 82 (38-126) U/L Total Protein 7.5 (6.3-8.2) g/dL Albumin 3.9 (3.5-5.0) g/dL Lipase 79 (23-300) U/L Urine Color Yellow Urine Appearance Clear (Clear) Urine pH 6.5 (5.0-8.0) Ur Specific [place] 1.008 (1.001-1.035) Urine Protein Trace H (Negative) Urine Glucose (UA) Trace H (Negative) Urine Ketones Negative (Negative) Urine Blood Negative (Negative) Urine Nitrite Negative (Negative) Urine Bilirubin Negative (Negative) Urine Urobilinogen <2.0 (<2.0) mg/dL Ur Leukocyte Esterase Small H (Negative) Urine RBC 1 (0-5) /hpf Urine WBC 5 (0-5) /hpf Ur Squamous Epith Cells 6 H (0-4) /hpf Hyaline Casts 12 H (0-2) /lpf Urine Mucus Occasional H (None) /hpf Disposition Clinical Impression: Nausea & vomiting Disposition: HOME SELF-CARE Condition: Stable Instructions: Acute Nausea and Vomiting (ED) Additional Instructions: Please return to the Emergency Department if symptoms worsen or any other concerns. Is patient prescribed a controlled substance at d/c from ED?: No Referrals: Annelise Rose DO [Primary Care Provider] - 1-2 days Time of Disposition: 13:25
[2018-08-20 10:26] LABS: Appearance,Urine Clear (Clear); Bilirubin,Urine Negative (Negative); Blood,Urine Negative (Negative); Color,Urine Yellow; Glucose,Urine (UA) Trace (Negative); Hyaline Casts,Urine 12 /lpf (0-2); Ketones,Urine Negative (Negative); Leukocyte Esterase,Urine Small (Negative); Mucus,Urine Occasional /hpf; Nitrite,Urine Negative (Negative); PH, Urine 6.5 (5.0-8.0); Protein,Urine Trace (Negative); RBC,Urine 1 /hpf (0-5); Specific Gravity,Urine 1.008 (1.001-1.035); Squamous Epithelial Cell,Urine 6 /hpf (0-4); Urobilinogen,Urine <2.0 mg/dL (<2.0); WBC,Urine 5 /hpf (0-5)
[2018-08-20] MEDS ORDERED: MECLIZINE 12.5 MG TAB PO STA (10:34)
[2018-08-20] MEDS ORDERED: METOCLOPRAMIDE 5 MG/ML 2 ML VIAL IVP STA (11:35)
[2018-08-20] MEDS ORDERED: SCOPOLAMINE 1.5MG/72HR PATCH TRANSDERM STA (13:24)
[2018-08-20 13:51] VITALS: BP 135/69; PULSE 83; RESP 18; TEMP 98.6
== END 2018-08-20 13:48 | disposition home or self-care (01) ==
LOC: EC 09:34
DX: R11.2 Nausea with vomiting, unspecified (principal); E78.5 Hyperlipidemia, unspecified; I10 Essential (primary) hypertension; E11.9 Type 2 diabetes mellitus without complications; K21.9 Gastro-esophageal reflux disease without esophagitis; G47.30 Sleep apnea, unspecified; Z88.1 Allergy status to other antibiotic agents; Z88.2 Allergy status to sulfonamides; Z88.5 Allergy status to narcotic agent; Z79.1 Long term (current) use of non-steroidal anti-inflammatories (NSAID); Z79.4 Long term (current) use of insulin; Z79.82 Long term (current) use of aspirin; Z79.899 Other long term (current) drug therapy; Z86.14 Personal history of Methicillin resistant Staphylococcus aureus infection; Z85.3 Personal history of malignant neoplasm of breast; Z90.12 Acquired absence of left breast and nipple; Z87.39 Personal history of other diseases of the musculoskeletal system and connective tissue; Z90.49 Acquired absence of other specified parts of digestive tract; Z99.89 Dependence on other enabling machines and devices; Z97.8 Presence of other specified devices
CPT/HCPCS: 36415; 80053; 83690; 85025; 81001; 99284; 96374; 96375; 96376; 96361 ×2; J2765; J2405

== ENCOUNTER 2018-08-21 17:52 | Inpatient (IN) | payer MEDICARE, OTHER ==
[2018-08-21] MEDS ORDERED: ACETAMINOPHEN TAB 325 MG TAB PO STA (18:16)
[2018-08-21] MEDS ORDERED: SODIUM CHLORIDE 0.9% 1,000 ML IV STA ×2 (18:18)
--- NOTE | 2018-08-21 18:32 | ED ---
Altered Mental Status HPI - General Chief Complaint: Altered Mental Status Stated Complaint: Sepsis Time Seen by Provider: 08/21/18 17:56 Source: EMS Mode of arrival: EMS Limitations: altered mental status - History of Present Illness Initial Comments: Patient is a 68-year-old female presenting for altered mental status. Patient is alert and oriented 1 and states that she has no chest pain or shortness of breath. She also denies any fevers or chills or coughing and that she lives at home. However, she states that she has had some nausea and vomiting for the last 2 days. - Related Data Home Medications Medication Instructions Recorded Confirmed Aspirin EC [Ecotrin Low Dose] 81 mg PO DAILY 04/22/16 08/21/18 Esomeprazole Magnesium [NexIUM] 40 mg PO BID 04/22/16 08/21/18 Liraglutide [Victoza 2-Dread] 1.8 mg SQ DAILY 04/22/16 08/21/18 Methocarbamol [Robaxin] 500 mg PO BID PRN 04/22/16 08/21/18 traMADol HCL [Ultram] 50 mg PO DAILY PRN 04/22/16 08/21/18 Rosuvastatin Calcium [Crestor] 40 mg PO DAILY 06/02/16 08/21/18 Insulin Glargine [Lantus] 50 unit SQ DAILY 11/01/17 08/21/18 Levothyroxine Sodium [Synthroid] 75 mcg PO DAILY 11/01/17 08/21/18 Canagliflozin [Invokana] 100 mg PO DAILY 06/21/18 08/21/18 Celecoxib [CeleBREX] 200 mg PO DAILY 06/21/18 08/21/18 DULoxetine HCL [Cymbalta] 60 mg PO DAILY 06/21/18 08/21/18 Ibuprofen [Motrin Ib] 200 mg PO Q6H PRN 06/21/18 08/21/18 Mirabegron [Myrbetriq] 50 mg PO DAILY 06/21/18 08/21/18 Montelukast [Singulair] 10 mg PO DAILY 06/21/18 08/21/18 Valsartan [Diovan] 40 mg PO DAILY 06/21/18 08/21/18 Morphine Pain Pump 1 dose INTRATHECA DIRECTED 08/20/18 08/21/18 Nocdurna 27.7 mcg SUBLINGUAL HS 08/20/18 08/21/18 metFORMIN HCL 1,000 mg PO BID 08/20/18 08/21/18 Allergies Allergy/AdvReac Type Severity Reaction Status Date / Time neomycin Allergy Itching Verified 08/21/18 18:17 Sulfa (Sulfonamide Allergy Dyspnea Verified 08/21/18 18:17 Antibiotics) sulfamethoxazole Allergy Dyspnea Verified 08/21/18 18:17 [From ] trimethoprim [From ] Allergy Dyspnea Verified 08/21/18 18:17 morphine AdvReac Nausea & Verified 08/21/18 18:17 Vomiting Review of Systems ROS Statement: Those systems with pertinent positive or pertinent negative responses have been documented in the HPI. Constitutional: Positive for chills, fatigue and fever. HENT: Negative for congestion. Respiratory: Negative for chest tightness, shortness of breath and wheezing. Negative for cough Cardiovascular: Negative for chest pain and palpitations. Gastrointestinal: Positive for abdominal pain. Negative for abdominal distention , diarrhea, positive for nausea and vomiting. Genitourinary: Negative for dysuria. Musculoskeletal: Negative for back pain, neck pain and neck stiffness. Skin: Negative for color change. Neurological: Negative for dizziness, speech difficulty, weakness and light- headedness. Positive for confusion Psychiatric/Behavioral: Negative for agitation. Negative for anxiety ROS Other: All systems not noted in ROS Statement are negative. Past Medical History Past Medical History: Cancer, Diabetes Mellitus, GERD/Reflux, Hyperlipidemia, Hypertension, Sleep Apnea/CPAP/BIPAP Additional Past Medical History / Comment(s): Lt Breast CA. HX IRREG HEART X1. USES CPAP. HX COLITIS. HAD BLACK STOOLS 4 WEEKS AGO, herniated disc in back History of Any Multi-Drug Resistant Organisms: MRSA Date of last positivie culture/infection: 04/02/17 MDRO Source:: URINE Past Surgical History: Back Surgery, Breast Surgery, Cholecystectomy, Hysterectomy Additional Past Surgical History / Comment(s): Lt Mastectomy W/ RECONSTRUCTION; RT BREAST IMPLANT. SINUS SURG X3., colonoscopy, pain pump implant Past Anesthesia/Blood Transfusion Reactions: Previous Problems w/ Anesthesia Additional Past Anesthesia/Blood Transfusion Reaction / Comment(s): HX OF DAMAGE TO VOCAL CORDS POST-OP BACK SURGERY Past Psychological History: No Psychological Hx Reported Smoking Status: Never smoker Past Alcohol Use History: None Reported Past Drug Use History: None Reported - Past Family History Father Sister(s) Family Medical History: Cancer Brother(s) Family Medical History: Cancer Additional Family Medical History / Comment(s): ANEURYSM General Exam - General Exam Comments Initial Comments: Constitutional: Pt is oriented to person. Pt appears well-developed and well- nourished. No distress. HENT: Dry mucous membranes with oral pharynx of present Head: Normocephalic and atraumatic. Eyes: EOM are normal. Neck: Normal range of motion. Neck supple. Cardiovascular: Normal rate, regular rhythm, S1 normal, S2 normal and normal heart sounds. Exam reveals no gallop and no friction rub. No murmur heard. Pulmonary/Chest: Effort normal and breath sounds normal. No tachypnea and no bradypnea. No respiratory distress. No wheezes or rales noted. Abdominal: Soft. Bowel sounds are normal. Pt exhibits no shifting dullness, no distension, no pulsatile liver, no fluid wave, no abdominal bruit and no ascites. There is no tenderness. There is no rigidity, no rebound, no guarding, no tenderness at McBurney's point and negative Willett's sign. Musculoskeletal: Normal range of motion. Neurological: Pt is alert and oriented to person. No cranial nerve deficit. Skin: Skin is warm and dry. No rash noted. Pt is not diaphoretic. No erythema. No pallor. Psychiatric: Pt has a normal mood and affect. Pt behavior is normal. Thought content normal. Limitations: altered mental status Course Vital Signs 08/21/18 08/21/18 08/21/18 17:56 18:00 18:30 Temperature 100.9 F H Pulse Rate 85 Respiratory 20 17 Rate Blood Pressure 113/58 120/59 O2 Sat by Pulse 95 94 L 91 L Oximetry 08/21/18 08/21/18 08/21/18 18:39 19:00 19:30 Temperature Pulse Rate 83 Respiratory 18 Rate Blood Pressure 125/58 119/57 119/62 O2 Sat by Pulse 92 L 90 L Oximetry 08/21/18 08/21/18 08/21/18 19:36 20:00 20:30 Temperature 99.5 F Pulse Rate 83 81 78 Respiratory 17 18 17 Rate Blood Pressure 110/67 138/67 O2 Sat by Pulse 95 92 L Oximetry 01/05/19 01/05/19 01/05/19 21:00 21:30 22:00 Temperature Pulse Rate 75 73 72 Respiratory 17 18 17 Rate Blood Pressure 133/66 122/80 139/69 O2 Sat by Pulse 91 L 91 L 96 Oximetry 08/21/18 08/21/18 08/21/18 22:30 23:01 23:30 Temperature Pulse Rate 71 72 73 Respiratory 16 16 17 Rate Blood Pressure 147/73 117/102 145/70 O2 Sat by Pulse 96 95 96 Oximetry 08/21/18 23:50 Temperature Pulse Rate Respiratory 18 Rate Blood Pressure O2 Sat by Pulse Oximetry - Reevaluation(s) Reevaluation #1: 08/21/18 18:40 - Laboratory studies showed that there is no significant leukocytosis and WBC is measured 11.6. Upon arrival, the patient appeared to have a temperature and therefore sepsis order set with fluids was initiated. Lactic acid was not elevated and from a cardiac standpoint, there is no significant ST depressions or elevations. However, troponin is noted to be elevated at 1.13 and BNP was also measured at 6990. Because of these findings, patient was placed on heparin he was so she does not have any active chest pain. D-dimer was performed and marginal in measured at 0.6. It is unclear the source of fever as urinalysis is pending. Reevaluation #2: 08/21/18 22:09 - is bedside and states that the patient did have a pain pump implanted in the middle portion of July. However, patient has not been complaining of worsening abdominal pain in his opinion and has not been having any nausea or vomiting that she reports. Reevaluation #3: 08/21/18 23:10 - case discussed with cardiology as well and it is recommended that no emergent intervention is needed and heparin drip is acceptable. CT PE study will be completed as well as CT abdomen after discussion with Dr. Hoskins to verify that there is not an intra-abdominal source of pathology Medical Decision Making - Medical Decision Making Laboratory studies showed that there was mild leukocytosis and originally, source of infection cannot be found. However, he was eventually discovered that there was lower lobe infiltrates discovered on CT PE study. CT of the abdomen also showed no evidence of abscess or complications surrounding the implantation device. Because of this, the patient will be admitted and started on vancomycin and Zosyn for HCAP. Case has been discussed with Dr. Hoskins on multiple occasions and he is agreeable to admission. - Lab Data Result diagrams: 08/21/18 18:40 08/21/18 18:40 Lab Results 08/21/18 08/21/18 08/21/18 Range/Units 18:40 18:40 18:40 WBC (3.8-10.6) k/uL RBC (3.80-5.40) m/uL Hgb (11.4-16.0) gm/dL Hct (34.0-46.0) % MCV (80.0-100.0) fL MCH (25.0-35.0) pg MCHC (31.0-37.0) g/dL RDW (11.5-15.5) % Plt Count (150-450) k/uL Neutrophils % % Lymphocytes % % Monocytes % % Eosinophils % % Basophils % % Neutrophils # (1.3-7.7) k/uL Lymphocytes # (1.0-4.8) k/uL Monocytes # (0-1.0) k/uL Eosinophils # (0-0.7) k/uL Basophils # (0-0.2) k/uL Anisocytosis PT (9.0-12.0) sec INR (<1.2) APTT (22.0-30.0) sec D-Dimer (<0.60) mg/L FEU Sodium (137-145) mmol/L Potassium (3.5-5.1) mmol/L Chloride (98-107) mmol/L Carbon Dioxide (22-30) mmol/L Anion Gap mmol/L BUN (7-17) mg/dL Creatinine (0.52-1.04) mg/dL Est GFR (CKD-EPI)AfAm (>60 ml/min/1.73 sqM) Est GFR (CKD-EPI)NonAf (>60 ml/min/1.73 sqM) Glucose (74-99) mg/dL Estimated Ave Glu mg/dL 186 Hemoglobin A1c 8.1 H (4.0-6.0) % Plasma Lactic Acid Adan (0.7-2.0) mmol/L Calcium (8.4-10.2) mg/dL Magnesium (1.6-2.3) mg/dL Total Bilirubin (0.2-1.3) mg/dL AST (14-36) U/L ALT (9-52) U/L Alkaline Phosphatase (38-126) U/L Total Creatine Kinase 215 H (30-135) U/L CK-MB (CK-2) 2.1 (0.0-2.4) ng/mL CK-MB (CK-2) Rel Index 1.0 Troponin I 1.130 H* (0.000-0.034) ng/mL NT-Pro-B Natriuret Pep 6990 pg/mL Total Protein (6.3-8.2) g/dL Albumin (3.5-5.0) g/dL Lipase (23-300) U/L Urine Color Urine Appearance (Clear) Urine pH (5.0-8.0) Ur Specific [place] (1.001-1.035) Urine Protein (Negative) Urine Glucose (UA) (Negative) Urine Ketones (Negative) Urine Blood (Negative) Urine Nitrite (Negative) Urine Bilirubin (Negative) Urine Urobilinogen (<2.0) mg/dL Ur Leukocyte Esterase (Negative) Ur Squamous Epith Cells (0-4) /hpf Urine Bacteria (None) /hpf Hyaline Casts (0-2) /lpf Urine Mucus (None) /hpf Influenza Type A RNA (Not Detectd) Influenza Type B (PCR) (Not Detectd) 08/21/18 08/21/18 08/21/18 Range/Units 18:40 18:40 18:40 WBC 11.6 H (3.8-10.6) k/uL RBC 4.32 (3.80-5.40) m/uL Hgb 11.9 (11.4-16.0) gm/dL Hct 38.5 (34.0-46.0) % MCV 89.1 (80.0-100.0) fL MCH 27.5 (25.0-35.0) pg MCHC 30.8 L (31.0-37.0) g/dL RDW 16.3 H (11.5-15.5) % Plt Count 234 (150-450) k/uL Neutrophils % 82 % Lymphocytes % 12 % Monocytes % 4 % Eosinophils % 1 % Basophils % 0 % Neutrophils # 9.5 H (1.3-7.7) k/uL Lymphocytes # 1.4 (1.0-4.8) k/uL Monocytes # 0.5 (0-1.0) k/uL Eosinophils # 0.1 (0-0.7) k/uL Basophils # 0.0 (0-0.2) k/uL Anisocytosis Slight PT (9.0-12.0) sec INR (<1.2) APTT (22.0-30.0) sec D-Dimer (<0.60) mg/L FEU Sodium 135 L (137-145) mmol/L Potassium 4.6 (3.5-5.1) mmol/L Chloride 102 (98-107) mmol/L Carbon Dioxide 26 (22-30) mmol/L Anion Gap 7 mmol/L BUN 19 H (7-17) mg/dL Creatinine 0.94 (0.52-1.04) mg/dL Est GFR (CKD-EPI)AfAm 73 (>60 ml/min/1.73 sqM) Est GFR (CKD-EPI)NonAf 63 (>60 ml/min/1.73 sqM) Glucose 174 H (74-99) mg/dL Estimated Ave Glu mg/dL Hemoglobin A1c (4.0-6.0) % Plasma Lactic Acid Adan 0.9 (0.7-2.0) mmol/L Calcium 8.3 L (8.4-10.2) mg/dL Magnesium 1.8 (1.6-2.3) mg/dL Total Bilirubin 0.8 (0.2-1.3) mg/dL AST 35 (14-36) U/L ALT 24 (9-52) U/L Alkaline Phosphatase 59 (38-126) U/L Total Creatine Kinase (30-135) U/L CK-MB (CK-2) (0.0-2.4) ng/mL CK-MB (CK-2) Rel Index Troponin I (0.000-0.034) ng/mL NT-Pro-B Natriuret Pep pg/mL Total Protein 6.2 L (6.3-8.2) g/dL Albumin 3.1 L (3.5-5.0) g/dL Lipase 21 L (23-300) U/L Urine Color Urine Appearance (Clear) Urine pH (5.0-8.0) Ur Specific [place] (1.001-1.035) Urine Protein (Negative) Urine Glucose (UA) (Negative) Urine Ketones (Negative) Urine Blood (Negative) Urine Nitrite (Negative) Urine Bilirubin (Negative) Urine Urobilinogen (<2.0) mg/dL Ur Leukocyte Esterase (Negative) Ur Squamous Epith Cells (0-4) /hpf Urine Bacteria (None) /hpf Hyaline Casts (0-2) /lpf Urine Mucus (None) /hpf Influenza Type A RNA (Not Detectd) Influenza Type B (PCR) (Not Detectd) 08/21/18 08/21/18 08/21/18 Range/Units 18:40 18:40 18:40 WBC (3.8-10.6) k/uL RBC (3.80-5.40) m/uL Hgb (11.4-16.0) gm/dL Hct (34.0-46.0) % MCV (80.0-100.0) fL MCH (25.0-35.0) pg MCHC (31.0-37.0) g/dL RDW (11.5-15.5) % Plt Count (150-450) k/uL Neutrophils % % Lymphocytes % % Monocytes % % Eosinophils % % Basophils % % Neutrophils # (1.3-7.7) k/uL Lymphocytes # (1.0-4.8) k/uL Monocytes # (0-1.0) k/uL Eosinophils # (0-0.7) k/uL Basophils # (0-0.2) k/uL Anisocytosis PT 11.3 (9.0-12.0) sec INR 1.1 (<1.2) APTT 24.0 (22.0-30.0) sec D-Dimer 0.60 H (<0.60) mg/L FEU Sodium (137-145) mmol/L Potassium (3.5-5.1) mmol/L Chloride (98-107) mmol/L Carbon Dioxide (22-30) mmol/L Anion Gap mmol/L BUN (7-17) mg/dL Creatinine (0.52-1.04) mg/dL Est GFR (CKD-EPI)AfAm (>60 ml/min/1.73 sqM) Est GFR (CKD-EPI)NonAf (>60 ml/min/1.73 sqM) Glucose (74-99) mg/dL Estimated Ave Glu mg/dL Hemoglobin A1c (4.0-6.0) % Plasma Lactic Acid Adan (0.7-2.0) mmol/L Calcium (8.4-10.2) mg/dL Magnesium (1.6-2.3) mg/dL Total Bilirubin (0.2-1.3) mg/dL AST (14-36) U/L ALT (9-52) U/L Alkaline Phosphatase (38-126) U/L Total Creatine Kinase (30-135) U/L CK-MB (CK-2) (0.0-2.4) ng/mL CK-MB (CK-2) Rel Index Troponin I (0.000-0.034) ng/mL NT-Pro-B Natriuret Pep pg/mL Total Protein (6.3-8.2) g/dL Albumin (3.5-5.0) g/dL Lipase (23-300) U/L Urine Color Urine Appearance (Clear) Urine pH (5.0-8.0) Ur Specific [place] (1.001-1.035) Urine Protein (Negative) Urine Glucose (UA) (Negative) Urine Ketones (Negative) Urine Blood (Negative) Urine Nitrite (Negative) Urine Bilirubin (Negative) Urine Urobilinogen (<2.0) mg/dL Ur Leukocyte Esterase (Negative) Ur Squamous Epith Cells (0-4) /hpf Urine Bacteria (None) /hpf Hyaline Casts (0-2) /lpf Urine Mucus (None) /hpf Influenza Type A RNA Not Detected (Not Detectd) Influenza Type B (PCR) Not Detected (Not Detectd) 08/21/18 Range/Units 21:31 WBC (3.8-10.6) k/uL RBC (3.80-5.40) m/uL Hgb (11.4-16.0) gm/dL Hct (34.0-46.0) % MCV (80.0-100.0) fL MCH (25.0-35.0) pg MCHC (31.0-37.0) g/dL RDW (11.5-15.5) % Plt Count (150-450) k/uL Neutrophils % % Lymphocytes % % Monocytes % % Eosinophils % % Basophils % % Neutrophils # (1.3-7.7) k/uL Lymphocytes # (1.0-4.8) k/uL Monocytes # (0-1.0) k/uL Eosinophils # (0-0.7) k/uL Basophils # (0-0.2) k/uL Anisocytosis PT (9.0-12.0) sec INR (<1.2) APTT (22.0-30.0) sec D-Dimer (<0.60) mg/L FEU Sodium (137-145) mmol/L Potassium (3.5-5.1) mmol/L Chloride (98-107) mmol/L Carbon Dioxide (22-30) mmol/L Anion Gap mmol/L BUN (7-17) mg/dL Creatinine (0.52-1.04) mg/dL Est GFR (CKD-EPI)AfAm (>60 ml/min/1.73 sqM) Est GFR (CKD-EPI)NonAf (>60 ml/min/1.73 sqM) Glucose (74-99) mg/dL Estimated Ave Glu mg/dL Hemoglobin A1c (4.0-6.0) % Plasma Lactic Acid Adan (0.7-2.0) mmol/L Calcium (8.4-10.2) mg/dL Magnesium (1.6-2.3) mg/dL Total Bilirubin (0.2-1.3) mg/dL AST (14-36) U/L ALT (9-52) U/L Alkaline Phosphatase (38-126) U/L Total Creatine Kinase (30-135) U/L CK-MB (CK-2) (0.0-2.4) ng/mL CK-MB (CK-2) Rel Index Troponin I (0.000-0.034) ng/mL NT-Pro-B Natriuret Pep pg/mL Total Protein (6.3-8.2) g/dL Albumin (3.5-5.0) g/dL Lipase (23-300) U/L Urine Color Yellow Urine Appearance Cloudy H (Clear) Urine pH 5.5 (5.0-8.0) Ur Specific [place] 1.017 (1.001-1.035) Urine Protein 1+ H (Negative) Urine Glucose (UA) Negative (Negative) Urine Ketones 1+ H (Negative) Urine Blood Negative (Negative) Urine Nitrite Negative (Negative) Urine Bilirubin Negative (Negative) Urine Urobilinogen 3.0 (<2.0) mg/dL Ur Leukocyte Esterase Negative (Negative) Ur Squamous Epith Cells 3 (0-4) /hpf Urine Bacteria Many H (None) /hpf Hyaline Casts 13 H (0-2) /lpf Urine Mucus Many H (None) /hpf Influenza Type A RNA (Not Detectd) Influenza Type B (PCR) (Not Detectd) - EKG Data EKG Comments: EKG shows normal sinus rhythm with a rate of 86 bpm, NV interval 164, QRS 84, QTC 502. There is minimal ST elevation in lead V2 measuring approximately 0.5- 1 mm. Disposition Clinical Impression: Sepsis, HCAP (healthcare-associated pneumonia), Hypoxia, Elevated brain natriuretic peptide (BNP) level, NSTEMI (non-ST elevated myocardial infarction) Disposition: ADMITTED IP TO THIS HOSP Condition: Fair Referrals: None,Stated [Primary Care Provider] - 1-2 days Decision to Admit Reason: Admit from EC Decision Date: 08/22/18 Decision Time: 00:39
[2018-08-21] MEDS: SODIUM CHLORIDE 0.9% 500 ML 500 ML IV SCH ×2 (18:50→19:46)
[2018-08-21] MEDS: SODIUM CHLORIDE 0.9% 1,000 ML IV SCH (18:51)
[2018-08-21 18:54] LABS: Anisocytosis Slight; Basophils % (A) 0 %; Eosinophils # (A) 0.1 k/uL (0-0.7); Eosinophils % (A) 1 %; HCT 38.5 % (34.0-46.0); HGB 11.9 gm/dL (11.4-16.0); Lymphocytes # (A) 1.4 k/uL (1.0-4.8); Lymphocytes % (A) 12 %; MCH 27.5 pg (25.0-35.0); MCHC 30.8 g/dL (31.0-37.0); MCV 89.1 fL (80.0-100.0); Mean Platelet Volume 6.8; Monocytes # (A) 0.5 k/uL (0-1.0); Monocytes % (A) 4 %; Neutrophils # (A) 9.5 k/uL (1.3-7.7); Neutrophils % (A) 82 %; Platelet Count 234 k/uL (150-450); RBC 4.32 m/uL (3.80-5.40); RDW 16.3 % (11.5-15.5); WBC 11.6 k/uL (3.8-10.6)
[2018-08-21 19:04] LABS: Albumin 3.1 g/dL (3.5-5.0); Calcium 8.3 mg/dL (8.4-10.2); Magnesium 1.8 mg/dL (1.6-2.3); Potassium 4.6 mmol/L (3.5-5.1); Total Bilirubin 0.8 mg/dL (0.2-1.3); Total Protein 6.2 g/dL (6.3-8.2)
[2018-08-21 19:09] LABS: INR 1.1 (<1.2); Prothrombin Time 11.3 sec (9.0-12.0)
[2018-08-21 19:23] LABS: Creatine Kinase MB 2.1 ng/mL (0.0-2.4)
[2018-08-21 19:33] LABS: Troponin I 1.13 ng/mL (0.000-0.034)
--- NOTE | 2018-08-21 19:50 | CT ---
EXAMINATION TYPE: CT brain wo con DATE OF EXAM: 08/21/2018 COMPARISON: 03/31/2017 HISTORY: Pt recently had a pain pump put in. Pt fell today, said has been rather non-responsi ve CT DLP: 1123.4 mGycm Automated exposure control for dose reduction was used. FINDINGS: Ventricles of normal size. There is no mass effect nor midline shift. There is no sign of intracrania l hemorrhage. Calvarium is intact. IMPRESSION: NORMAL HEAD CT SCAN. NO CHANGE.
--- NOTE | 2018-08-21 19:53 | XR ---
EXAMINATION TYPE: XR chest 2V DATE OF EXAM: 08/21/2018 COMPARISON: NONE HISTORY: Altered mental status TECHNIQUE: Frontal and lateral views of the chest are obtained. FINDINGS: There is no heart failure nor confluent pneumonic infiltrate. Costophrenic angles are shakira r. Bony thorax is intact. There is slight coarsening of the lung markings. IMPRESSION: Mild pulmonary fibrosis. Normal heart. No active cardiopulmonary disease.
[2018-08-21] MEDS ORDERED: HEPARIN SODIUM,PORCINE 5,000 UNIT/ML 1 ML VIAL IV STA (20:09)
[2018-08-21] MEDS ORDERED: HEPARIN SOD,PORK IN 0.45% NACL 25,000 UNIT in 0.45% NACL 1 250ML.BAG IV SCH (20:15)
[2018-08-21 21:56] LABS: Appearance,Urine Cloudy (Clear); Bacteria,Urine Many /hpf; Bilirubin,Urine Negative (Negative); Blood,Urine Negative (Negative); Color,Urine Yellow; Glucose,Urine (UA) Negative (Negative); Hyaline Casts,Urine 13 /lpf (0-2); Ketones,Urine 1+ (Negative); Leukocyte Esterase,Urine Negative (Negative); Mucus,Urine Many /hpf; Nitrite,Urine Negative (Negative); PH, Urine 5.5 (5.0-8.0); Protein,Urine 1+ (Negative); Specific Gravity,Urine 1.017 (1.001-1.035); Squamous Epithelial Cell,Urine 3 /hpf (0-4)
[2018-08-21 23:16] LABS: Hemoglobin A1C 8.1 % (4.0-6.0)
[2018-08-21] MEDS ORDERED: ASPIRIN 81 MG PO STA (23:52)
--- NOTE | 2018-08-21 23:56 | CT ---
EXAMINATION TYPE: CT chest angio for PE DATE OF EXAM: 08/21/2018 COMPARISON: 04/02/2017 HISTORY: Chest pain CT DLP: mGycm Automated exposure control for dose reduction was used. CONTRAST: CT Chest for pulmonary embolism performed with , patient injected with mL of . The contrast was Isovue 100 mL. There are 3-D post processed images. FINDINGS: Heart is enlarged. There is some airspace consolidation and atelectasis in both lower lobes. There is small bilateral pleural effusions. There are bilateral breast implants. There are bilateral bronchia l lymph nodes that measure up to 2 cm. The bony thorax is intact. Thoracic aorta appears normal without evidence of aneurysm or dissection. There is normal contrast opacification of the pulmonary arteries. I see no filling defect. Upper abdo stephanie soft tissues unremarkable. Bony thorax is intact. IMPRESSION: No evidence of pulmonary embolism. Cardiomegaly. There is new infiltrate and atelectasis and pleural fluid at the lung bases compared to old exam. Heart appears increased compared to old exam. IMPRESSION:
--- NOTE | 2018-08-21 23:59 | CT ---
EXAMINATION TYPE: CT abdomen pelvis w con DATE OF EXAM: 08/21/2018 COMPARISON: June 18, 2017 HISTORY: abdominal pain CT DLP: 924.9 mGycm Automated exposure control for dose reduction was used. TECHNIQUE: Helical acquisition of images was performed from the lung bases through the pelvis. CONTRAST: Performed without Oral Contrast and with IV Contrast, patient injected with 100mL mL of Isovue 300. FINDINGS: Heart is enlarged. There is some infiltrate and atelectasis at the lung bases and small pleural effus ions. Liver shows no focal defect. There are clips from cholecystectomy. Spleen appears normal. There is no pancreatic mass. Bile ducts are not dilated. Stomach appears normal. There is no adrenal mass. Kidneys show satisfactory contrast opacification. There is no hydronephrosi s. There is subcutaneous implant in the left mid abdomen. The ureters are nondilated. Bladder distend s smoothly. There is no inguinal hernia. There is no free fluid in the pelvis. Appendix appears nichole l. I see no evidence of a bowel obstruction. There is no mesenteric edema. There is no evidence of fr ee air. I see no bony destructive process. There is fusion surgery in the lumbar spine. IMPRESSION: THERE IS NEW INFILTRATE AND ATELECTASIS AND SMALL PLEURAL FLUID COMPARED TO OLD CT SCAN AT THE LUNG B ASES. NO ACUTE ABNORMALITY SEEN WITHIN THE ABDOMEN AND PELVIS.
[2018-08-22] MEDS ORDERED: NITROGLYCERIN SL TABS 0.4 MG TAB SUBLINGUAL PRN (00:42)
[2018-08-22] MEDS ORDERED: VANCOMYCIN IV PER PHARMACY 1 EACH MISC MISCELLANE PRN (00:46)
[2018-08-22] MEDS ORDERED: VANCOMYCIN 1,500 MG in SODIUM CHLORIDE 0.9% 250 ML IVPB STA (00:51)
[2018-08-22] MEDS ORDERED: PIPERACILLIN-TAZOBACTAM 3.375 GM in SODIUM CHLORIDE 0.9% 100 ML IVPB STA (00:52)
[2018-08-22 01:32] LABS: Creatine Kinase MB 3.1 ng/mL (0.0-2.4)
[2018-08-22 01:48] LABS: Troponin I 0.9 ng/mL (0.000-0.034)
[2018-08-22] MEDS ORDERED: diphenhydrAMINE 25 MG CAP PO STA (05:48)
[2018-08-22 06:15] LABS: Creatine Kinase MB 3.3 ng/mL (0.0-2.4)
[2018-08-22 06:19] LABS: Troponin I 0.667 ng/mL (0.000-0.034)
[2018-08-22 08:27] LABS: Anion Gap 5 mmol/L; Blood Urea Nitrogen 17 mg/dL (7-17); Calcium 7.8 mg/dL (8.4-10.2); Carbon Dioxide 26 mmol/L (22-30); Chloride 105 mmol/L (98-107); Glucose 147 mg/dL (74-99); Magnesium 1.9 mg/dL (1.6-2.3); Potassium 4.2 mmol/L (3.5-5.1); Sodium 136 mmol/L (137-145)
[2018-08-22 08:55] LABS: Anisocytosis Slight; HCT 35.5 % (34.0-46.0); Hypochromasia Slight; MCH 28.1 pg (25.0-35.0); MCV 90.8 fL (80.0-100.0); Mean Platelet Volume 7.4; Platelet Count 200 k/uL (150-450); RBC 3.91 m/uL (3.80-5.40); RDW 16.2 % (11.5-15.5); WBC 9.8 k/uL (3.8-10.6)
[2018-08-22] MEDS: SODIUM CHLORIDE 0.9% 1,000 ML IV SCH ×2 (09:44→23:53)
[2018-08-22] MEDS: PIPERACILLIN-TAZOBACTAM 3.375 GM in SODIUM CHLORIDE 0.9% 100 ML IVPB SCH ×2 (09:44→17:16)
[2018-08-22] MEDS ORDERED: METHOCARBAMOL 500 MG TAB PO PRN (12:29)
--- NOTE | 2018-08-22 12:29 | P.HPIM ---
History of Present Illness H&P Date: 08/22/18 Daja Herman is a 68-year-old female patient of Dr. Annelise Rose who presented to [facility] emergency room with a chief complaint of confusion and severe weakness, patient stated that she has been having nausea and vomiting for 3 days prior to admission she was evaluated in emergency room, temperature on presentation was 100.9 white blood count was elevated at 11.6 d-dimer was borderline elevated at 0.60 troponin was significantly elevated at 1.130 patient was started on IV heparin in the emergency room and cardiology consultation was requested, also in the emergency room patient had a computed tomography scan of the brain without contrast which was within normal limits, she also had a CT angiogram of the chest that revealed no evidence of pulmonary embolism however there was evidence of bilateral pulmonary infiltrates, she also underwent a computed tomography scan of the abdomen and pelvis that revealed no significant abnormality. Patient was started on IV antibiotic Zosyn and vancomycin in the emergency room for pulmonary infiltrates, she was kept on IV heparin per protocol and was admitted to telemetry floor cardiology consultation is requested. Past Medical History Past Medical History: Cancer, Diabetes Mellitus, GERD/Reflux, Hyperlipidemia, Hypertension, Sleep Apnea/CPAP/BIPAP Additional Past Medical History / Comment(s): Lt Breast CA. HX IRREG HEART X1. USES CPAP. HX COLITIS. HAD BLACK STOOLS 4 WEEKS AGO, herniated disc in back History of Any Multi-Drug Resistant Organisms: MRSA Date of last positivie culture/infection: 04/02/17 MDRO Source:: URINE Past Surgical History: Back Surgery, Breast Surgery, Cholecystectomy, Hysterectomy Additional Past Surgical History / Comment(s): Lt Mastectomy W/ RECONSTRUCTION; RT BREAST IMPLANT. SINUS SURG X3., colonoscopy, pain pump implant Past Anesthesia/Blood Transfusion Reactions: Previous Problems w/ Anesthesia Additional Past Anesthesia/Blood Transfusion Reaction / Comment(s): HX OF DAMAGE TO VOCAL CORDS POST-OP BACK SURGERY Past Psychological History: No Psychological Hx Reported Smoking Status: Never smoker Past Alcohol Use History: None Reported Past Drug Use History: None Reported - Past Family History Father Sister(s) Family Medical History: Cancer Brother(s) Family Medical History: Cancer Additional Family Medical History / Comment(s): ANEURYSM Medications and Allergies Home Medications Medication Instructions Recorded Confirmed Type Aspirin EC [Ecotrin Low Dose] 81 mg PO DAILY 04/22/16 08/21/18 History Esomeprazole Magnesium [NexIUM] 40 mg PO BID 04/22/16 08/21/18 History Liraglutide [Victoza 2-Dread] 1.8 mg SQ DAILY 04/22/16 08/21/18 History Methocarbamol [Robaxin] 500 mg PO BID PRN 04/22/16 08/21/18 History traMADol HCL [Ultram] 50 mg PO DAILY PRN 04/22/16 08/21/18 History Rosuvastatin Calcium [Crestor] 40 mg PO DAILY 06/02/16 08/21/18 History Insulin Glargine [Lantus] 50 unit SQ DAILY 11/01/17 08/21/18 History Levothyroxine Sodium [Synthroid] 75 mcg PO DAILY 11/01/17 08/21/18 History Canagliflozin [Invokana] 100 mg PO DAILY 06/21/18 08/21/18 History Celecoxib [CeleBREX] 200 mg PO DAILY 06/21/18 08/21/18 History DULoxetine HCL [Cymbalta] 60 mg PO DAILY 06/21/18 08/21/18 History Ibuprofen [Motrin Ib] 200 mg PO Q6H PRN 06/21/18 08/21/18 History Mirabegron [Myrbetriq] 50 mg PO DAILY 06/21/18 08/21/18 History Montelukast [Singulair] 10 mg PO DAILY 06/21/18 08/21/18 History Valsartan [Diovan] 40 mg PO DAILY 06/21/18 08/21/18 History Morphine Pain Pump 1 dose INTRATHECA DIRECTED 08/20/18 08/21/18 History Nocdurna 27.7 mcg SUBLINGUAL HS 08/20/18 08/21/18 History metFORMIN HCL 1,000 mg PO BID 08/20/18 08/21/18 History Allergies Allergy/AdvReac Type Severity Reaction Status Date / Time neomycin Allergy Itching Verified 08/21/18 18:17 Sulfa (Sulfonamide Allergy Dyspnea Verified 08/21/18 18:17 Antibiotics) sulfamethoxazole Allergy Dyspnea Verified 08/21/18 18:17 [From ] trimethoprim [From ] Allergy Dyspnea Verified 08/21/18 18:17 morphine AdvReac Nausea & Verified 08/21/18 18:17 Vomiting Physical Exam Vitals: Vital Signs Temp Pulse Resp BP Pulse Ox 08/22/18 10:30 71 10 L 137/20 97 08/22/18 10:00 81 18 113/72 08/22/18 09:30 64 12 121/73 98 08/22/18 09:00 64 12 129/117 08/22/18 08:30 70 14 99/61 98 08/22/18 08:00 66 14 98/60 95 08/22/18 07:30 69 12 107/67 96 08/22/18 07:00 67 17 114/71 97 08/22/18 06:30 67 17 112/67 97 08/22/18 06:00 65 17 106/73 08/22/18 05:30 65 17 133/58 08/22/18 05:00 67 18 119/71 08/22/18 04:30 70 17 116/70 08/22/18 04:00 67 16 120/73 08/22/18 03:30 68 20 119/67 08/22/18 03:00 66 18 112/68 08/22/18 02:30 76 17 132/63 96 08/22/18 02:00 73 17 147/69 97 08/22/18 01:30 68 18 164/88 96 08/22/18 01:00 70 17 149/71 92 L 08/22/18 00:30 98.6 F 68 16 142/67 95 08/22/18 00:00 71 18 145/69 97 08/21/18 23:51 71 17 145/69 95 08/21/18 23:50 18 08/21/18 23:30 73 17 145/70 96 08/21/18 23:01 72 16 117/102 95 08/21/18 22:30 71 16 147/73 96 08/21/18 22:00 72 17 139/69 96 08/21/18 21:30 73 18 122/80 91 L 08/21/18 21:00 75 17 133/66 91 L 08/21/18 20:30 78 17 138/67 92 L 08/21/18 20:00 81 18 08/21/18 19:36 99.5 F 83 17 110/67 95 08/21/18 19:30 119/62 08/21/18 19:00 119/57 90 L 08/21/18 18:39 83 18 125/58 92 L 08/21/18 18:30 17 120/59 91 L 08/21/18 18:00 100.9 F H 85 20 113/58 94 L 08/21/18 17:56 95 Intake and Output 08/21/18 08/22/18 08/22/18 22:59 06:59 14:59 Intake Total 83 Balance 83 Intake: Intake, IV Titration 83 Amount Heparin Sod,Pork in 0.45% 83 NaCl 25,000 unit In 0.45 % NaCl 1 250ml.bag @ 11. 03 UNITS/KG/HR 10 mls/hr IV .Q24H [facility] Rx#: [id number] Other: Weight 90.718 kg In general patient is alert and oriented in no apparent distress HEENT head normocephalic and atraumatic Neck is supple no JVD no goiter no lymphadenopathy Chest exam reveals a few scattered crackles no wheezing Cardiac exam reveals regular heart sounds S1 and S2 no gallops no murmurs Abdomen is soft nontender no organomegaly with normal bowel sounds Extremity exam reveals no edema no cyanosis or clubbing Neurological examination reveals generalized weakness without any focal abnormality Results CBC & Chem 7: 08/22/18 05:22 08/22/18 05:22 Labs: Abnormal Lab Results - Last 24 Hours (Table) 08/21/18 08/21/18 08/21/18 Range/Units 18:40 18:40 18:40 WBC (3.8-10.6) k/uL Hgb (11.4-16.0) gm/dL MCHC (31.0-37.0) g/dL RDW (11.5-15.5) % Neutrophils # (1.3-7.7) k/uL APTT (22.0-30.0) sec D-Dimer (<0.60) mg/L FEU Sodium 135 L (137-145) mmol/L BUN 19 H (7-17) mg/dL Glucose 174 H (74-99) mg/dL Hemoglobin A1c 8.1 H (4.0-6.0) % Calcium 8.3 L (8.4-10.2) mg/dL Total Creatine Kinase 215 H (30-135) U/L CK-MB (CK-2) (0.0-2.4) ng/mL Troponin I 1.130 H* (0.000-0.034) ng/mL Total Protein 6.2 L (6.3-8.2) g/dL Albumin 3.1 L (3.5-5.0) g/dL Lipase 21 L (23-300) U/L Urine Appearance (Clear) Urine Protein (Negative) Urine Ketones (Negative) Urine Bacteria (None) /hpf Hyaline Casts (0-2) /lpf Urine Mucus (None) /hpf 08/21/18 08/21/18 08/21/18 Range/Units 18:40 18:40 21:31 WBC 11.6 H (3.8-10.6) k/uL Hgb (11.4-16.0) gm/dL MCHC 30.8 L (31.0-37.0) g/dL RDW 16.3 H (11.5-15.5) % Neutrophils # 9.5 H (1.3-7.7) k/uL APTT (22.0-30.0) sec D-Dimer 0.60 H (<0.60) mg/L FEU Sodium (137-145) mmol/L BUN (7-17) mg/dL Glucose (74-99) mg/dL Hemoglobin A1c (4.0-6.0) % Calcium (8.4-10.2) mg/dL Total Creatine Kinase (30-135) U/L CK-MB (CK-2) (0.0-2.4) ng/mL Troponin I (0.000-0.034) ng/mL Total Protein (6.3-8.2) g/dL Albumin (3.5-5.0) g/dL Lipase (23-300) U/L Urine Appearance Cloudy H (Clear) Urine Protein 1+ H (Negative) Urine Ketones 1+ H (Negative) Urine Bacteria Many H (None) /hpf Hyaline Casts 13 H (0-2) /lpf Urine Mucus Many H (None) /hpf 08/22/18 08/22/18 08/22/18 Range/Units 00:45 05:22 05:22 WBC (3.8-10.6) k/uL Hgb (11.4-16.0) gm/dL MCHC (31.0-37.0) g/dL RDW (11.5-15.5) % Neutrophils # (1.3-7.7) k/uL APTT 87.1 H (22.0-30.0) sec D-Dimer (<0.60) mg/L FEU Sodium (137-145) mmol/L BUN (7-17) mg/dL Glucose (74-99) mg/dL Hemoglobin A1c (4.0-6.0) % Calcium (8.4-10.2) mg/dL Total Creatine Kinase 358 H 338 H (30-135) U/L CK-MB (CK-2) 3.1 H 3.3 H (0.0-2.4) ng/mL Troponin I 0.900 H* 0.667 H* (0.000-0.034) ng/mL Total Protein (6.3-8.2) g/dL Albumin (3.5-5.0) g/dL Lipase (23-300) U/L Urine Appearance (Clear) Urine Protein (Negative) Urine Ketones (Negative) Urine Bacteria (None) /hpf Hyaline Casts (0-2) /lpf Urine Mucus (None) /hpf 08/22/18 08/22/18 Range/Units 05:22 05:22 WBC (3.8-10.6) k/uL Hgb 11.0 L (11.4-16.0) gm/dL MCHC (31.0-37.0) g/dL RDW 16.2 H (11.5-15.5) % Neutrophils # (1.3-7.7) k/uL APTT (22.0-30.0) sec D-Dimer (<0.60) mg/L FEU Sodium 136 L (137-145) mmol/L BUN (7-17) mg/dL Glucose 147 H (74-99) mg/dL Hemoglobin A1c (4.0-6.0) % Calcium 7.8 L (8.4-10.2) mg/dL Total Creatine Kinase (30-135) U/L CK-MB (CK-2) (0.0-2.4) ng/mL Troponin I (0.000-0.034) ng/mL Total Protein (6.3-8.2) g/dL Albumin (3.5-5.0) g/dL Lipase (23-300) U/L Urine Appearance (Clear) Urine Protein (Negative) Urine Ketones (Negative) Urine Bacteria (None) /hpf Hyaline Casts (0-2) /lpf Urine Mucus (None) /hpf Microbiology - Last 24 Hours (Table) 08/21/18 21:31 Urine Culture - Preliminary Urine,Catheterized Assessment and Plan Plan: #1 possible subacute myocardial infarction troponin is elevated at 1.13 and is trending down agent is maintained on IV heparin and cardiology consultation was requested #2 bilateral pulmonary infiltrate suggestive of pneumonia patient was started on IV Zosyn and IV vancomycin in the emergency room will continue at this time will obtain sputum culture #3 nausea and vomiting for the last 3 days amylase and lipase are normal computed tomography scan of the abdomen and pelvis failed to revealed any acute abnormality nausea and vomiting could be related to cardiac and pulmonary illness #4 underlying history of hypertension, well-controlled on current medications #5 underlying history of hyperlipidemia maintained on Crestor #6 underlying history of insulin-dependent diabetes mellitus maintained on Lantus 50 units subcu daily, Actos, metformin and invokana hemoglobin A1c on admission 8.1 #7 underlying history of hypothyroidism maintained on Synthroid 75 g daily #8 underlying history of chronic back pain with recent implantation of pain pump At this time patient is hemodynamically stable she is admitted to telemetry floor she is maintained on IV heparin and IV antibiotics will continue was the same Cardiology consultation and pulmonary consultation are requested Will follow closely
[2018-08-22] MEDS ORDERED: VALSARTAN 40 MG TAB PO SCH (12:45)
[2018-08-22] MEDS: NON-FORMULARY DRUG (Morphine Pain Pump 1 DOSE) INTRATHECA SCH (12:47)
[2018-08-22] MEDS: VANCOMYCIN 1,500 MG in SODIUM CHLORIDE 0.9% 250 ML IVPB SCH ×3 (12:47→23:48)
[2018-08-22] MEDS: PANTOPRAZOLE 40 MG TABLET PO SCH ×2 (13:59→17:16)
[2018-08-22] MEDS: LEVOTHYROXINE 75 MCG TAB PO SCH (13:59)
[2018-08-22] MEDS: DULoxetine HCL 60 MG CAPSULE.DR PO SCH (13:59)
[2018-08-22] MEDS: VALSARTAN 80 MG TAB PO SCH (14:00)
[2018-08-22] MEDS ORDERED: VANCOMYCIN 1,500 MG in SODIUM CHLORIDE 0.9% 250 ML IVPB SCH (19:30)
[2018-08-22] MEDS: [UNRECOGNIZED DRUG - OTHER] SUBLINGUAL SCH (23:44)
[2018-08-23] MEDS: diphenhydrAMINE 25 MG CAP PO PRN ×2 (01:03→20:20)
[2018-08-23] MEDS: PIPERACILLIN-TAZOBACTAM 3.375 GM in SODIUM CHLORIDE 0.9% 100 ML IVPB SCH ×3 (01:46→16:13)
[2018-08-23 06:04] LABS: Glucose,Whole Blood 155 mg/dL (75-99)
[2018-08-23] MEDS: PANTOPRAZOLE 40 MG TABLET PO SCH ×2 (06:18→16:13)
[2018-08-23] MEDS: LEVOTHYROXINE 75 MCG TAB PO SCH (06:18)
[2018-08-23 07:24] LABS: ALT 27 U/L (9-52); AST 30 U/L (14-36); Albumin 2.9 g/dL (3.5-5.0); Alkaline Phosphatase 50 U/L (38-126); Anion Gap 4 mmol/L; Blood Urea Nitrogen 11 mg/dL (7-17); Calcium 8.5 mg/dL (8.4-10.2); Carbon Dioxide 28 mmol/L (22-30); Chloride 109 mmol/L (98-107); Cholesterol 181 mg/dL (<200); Glucose 142 mg/dL (74-99); HDL Cholesterol 25 mg/dL (40-60); LDL Cholesterol,Calculated 119 mg/dL (0-99); Potassium 4.5 mmol/L (3.5-5.1); Sodium 141 mmol/L (137-145); Total Bilirubin 0.6 mg/dL (0.2-1.3); Total Protein 5.8 g/dL (6.3-8.2); Triglycerides 183 mg/dL (<150)
[2018-08-23 07:53] LABS: Anisocytosis Slight; Basophils % (A) 0 %; Eosinophils # (A) 0.2 k/uL (0-0.7); Eosinophils % (A) 4 %; HCT 35.3 % (34.0-46.0); HGB 11.2 gm/dL (11.4-16.0); Lymphocytes # (A) 1.1 k/uL (1.0-4.8); Lymphocytes % (A) 20 %; MCH 27.7 pg (25.0-35.0); MCHC 31.6 g/dL (31.0-37.0); MCV 87.7 fL (80.0-100.0); Monocytes # (A) 0.4 k/uL (0-1.0); Monocytes % (A) 7 %; Neutrophils # (A) 3.7 k/uL (1.3-7.7); Neutrophils % (A) 67 %; Platelet Count 196 k/uL (150-450); RBC 4.03 m/uL (3.80-5.40); RDW 16.1 % (11.5-15.5); WBC 5.5 k/uL (3.8-10.6)
[2018-08-23] MEDS: INSULIN DETEMIR 100 UNIT/ML 10 ML VIAL SQ SCH (08:55)
[2018-08-23] MEDS: MONTELUKAST 10 MG TAB PO SCH (08:55)
[2018-08-23] MEDS: DULoxetine HCL 60 MG CAPSULE.DR PO SCH (08:55)
[2018-08-23] MEDS: ATORVASTATIN 80 MG TAB PO SCH (08:55)
[2018-08-23] MEDS: ASPIRIN 325 MG TAB PO SCH (08:55)
--- NOTE | 2018-08-23 10:29 | CONS ---
CONSULTATION This patient's medical records reviewed. The patient is admitted. Patient came to the emergency room with a complaint of mostly confusion, weakness and change in the mental status. Patient has been having some nausea and vomiting for 3 days prior to admission with some fever and chills. Patient was febrile in the emergency room. In the emergency room, the patient was evaluated and the CT angiogram evidence of bilateral lung infiltrates suggestive of possible pneumonia. The patient does not complain of any chest pain. There is no previous history of myocardial infarction. The patient denies any orthopnea or PND. PAST MEDICAL HISTORY: Includes history of diabetes, hypertension, hyperlipidemia, left breast cancer, history of breast surgery, cholecystectomy, hysterectomy, sinus surgery and colonoscopy. HOME MEDICATIONS: Home medications included baby aspirin once a day, Nexium, Victoza, Robaxin and Ultram, Crestor 40 mg daily, Lantus insulin, Celebrex, Singulair, Diovan as well as Metformin. PHYSICAL EXAMINATION: At present reveals a 68-year-old female who does not appear to be in any acute distress. The patient's heart rate is 70 per minute, blood pressure is 140/69 mmHg, oxygen saturation is 92%. HEENT examination is negative. Neck is supple. There is no increase in jugular venous pressure. Both the carotid pulses are felt. There is no bruit. Chest is symmetrical. Heart: The PMI is not felt. First and second heart sounds are heard. Lungs clinically clear to auscultation and percussion. ABDOMEN: Soft. EXTREMITIES: Peripheral pulsations are 2+. [place] [address]. Electrolytes are normal. Creatinine is 0.94. The patient has a borderline elevated troponin of initial troponin was 1.13, second troponin is 0.90 and the 3rd troponin is 0.66. Patient's proBNP level is 6990. Influenza A and B is negative. FINAL IMPRESSION: 1. This patient is primarily admitted with a change in mental status, confusion and fever. The patient does have evidence of new infiltrate on the CT scan. It is suggestive of possible pneumonia. 2. The patient has mild elevation in the troponin is possibly secondary to pneumonia and sepsis. Clinically, there is no history suggestive of angina. Although ischemic changes are noted on the EKG, overall picture is not suggestive of acute coronary syndrome. I will recommend continue the patient on IV heparin. Echo and Doppler study will be obtained. Thank you for this consultation. MMODL / IJN: [id number] /
--- NOTE | 2018-08-23 10:45 | P.PN ---
Subjective Progress Note Date: 08/23/18 Daja Herman is a 68-year-old female patient of Dr. Annelise Rose who presented to [facility] emergency room with a chief complaint of confusion and severe weakness, patient stated that she has been having nausea and vomiting for 3 days prior to admission she was evaluated in emergency room, temperature on presentation was 100.9 white blood count was elevated at 11.6 d-dimer was borderline elevated at 0.60 troponin was significantly elevated at 1.130 patient was started on IV heparin in the emergency room and cardiology consultation was requested, also in the emergency room patient had a computed tomography scan of the brain without contrast which was within normal limits, she also had a CT angiogram of the chest that revealed no evidence of pulmonary embolism however there was evidence of bilateral pulmonary infiltrates, she also underwent a computed tomography scan of the abdomen and pelvis that revealed no significant abnormality. Patient was started on IV antibiotic Zosyn and vancomycin in the emergency room for pulmonary infiltrates, she was kept on IV heparin per protocol and was admitted to telemetry floor cardiology consultation is requested. On 08/23/2018 patient is currently alert and oriented 3 resting comfortably in bed. Patient has remained afebrile. At this time patient denies chest pain or shortness of breath. Denies nausea vomiting or diarrhea. Patient denies any urinary burning or frequency. Objective - Vital Signs Vital signs: Vital Signs Temp 97.9 F 08/23/18 08:40 Pulse 67 08/23/18 08:40 Resp 16 08/23/18 08:40 BP 115/70 08/23/18 08:40 Pulse Ox 97 08/23/18 08:40 Intake & Output 08/22/18 08/23/18 08/23/18 18:59 06:59 18:59 Weight 89.9 kg Other: Voiding Method Toilet Toilet Diaper # Voids 2 - Exam In general patient is alert and oriented in no apparent distress HEENT head normocephalic and atraumatic Neck is supple no JVD no goiter no lymphadenopathy Chest exam reveals a few scattered crackles no wheezing Cardiac exam reveals regular heart sounds S1 and S2 no gallops no murmurs Abdomen is soft nontender no organomegaly with normal bowel sounds Extremity exam reveals no edema no cyanosis or clubbing Neurological examination reveals generalized weakness without any focal abnormality - Labs CBC & Chem 7: 08/23/18 06:54 08/23/18 06:54 Labs: Abnormal Lab Results - Last 24 Hours (Table) 08/22/18 08/23/18 08/23/18 Range/Units 15:52 06:02 06:54 Hgb (11.4-16.0) gm/dL RDW (11.5-15.5) % APTT 31.0 H (22.0-30.0) sec Chloride 109 H (98-107) mmol/L Glucose 142 H (74-99) mg/dL POC Glucose (mg/dL) 155 H (75-99) mg/dL Total Protein 5.8 L (6.3-8.2) g/dL Albumin 2.9 L (3.5-5.0) g/dL Triglycerides 183 H (<150) mg/dL LDL Cholesterol, Calc 119 H (0-99) mg/dL HDL Cholesterol 25 L (40-60) mg/dL 08/23/18 Range/Units 06:54 Hgb 11.2 L (11.4-16.0) gm/dL RDW 16.1 H (11.5-15.5) % APTT (22.0-30.0) sec Chloride (98-107) mmol/L Glucose (74-99) mg/dL POC Glucose (mg/dL) (75-99) mg/dL Total Protein (6.3-8.2) g/dL Albumin (3.5-5.0) g/dL Triglycerides (<150) mg/dL LDL Cholesterol, Calc (0-99) mg/dL HDL Cholesterol (40-60) mg/dL Microbiology - Last 24 Hours (Table) 08/21/18 18:40 Blood Culture - Preliminary Blood No Growth after 24 hours 08/21/18 21:31 Urine Culture - Preliminary Urine,Catheterized Assessment and Plan Assessment: #1 possible subacute myocardial infarction troponin is elevated at 1.13 and is trending down agent is maintained on IV heparin and cardiology consultation was requested. 2-D echo has been ordered per cardiology services #2 bilateral pulmonary infiltrate suggestive of pneumonia patient was started on IV Zosyn and IV vancomycin in the emergency room will continue at this time will obtain sputum culture. Pulmonary services have been consulted #3 nausea and vomiting for the last 3 days amylase and lipase are normal computed tomography scan of the abdomen and pelvis failed to revealed any acute abnormality nausea and vomiting could be related to cardiac and pulmonary illness #4 underlying history of hypertension, well-controlled on current medications #5 underlying history of hyperlipidemia maintained on Crestor #6 underlying history of insulin-dependent diabetes mellitus maintained on Lantus 50 units subcu daily, Actos, metformin and invokana hemoglobin A1c on admission 8.1 #7 underlying history of hypothyroidism maintained on Synthroid 75 g daily #8 underlying history of chronic back pain with recent implantation of pain pump DVT prophylaxis heparin. GI prophylaxis Protonix I performed an examination of the patient and discussed their management with the Nurse Practitioner. I have reviewed the Nurse Practitioner's notes and agree with the documented findings and plan of care
[2018-08-23 11:15] LABS: Glucose,Whole Blood 174 mg/dL (75-99)
[2018-08-23] MEDS: MYRBETRIQ 50MG PO SCH (11:36)
[2018-08-23] MEDS: DOCUSATE 100 MG CAP PO SCH ×2 (11:42→20:20)
[2018-08-23] MEDS: NON-FORMULARY DRUG (Morphine Pain Pump 1 DOSE) INTRATHECA SCH (11:42)
[2018-08-23] MEDS: INSULIN ASPART 100 UNIT/ML 1 ML 10 ML VIAL SQ SCH ×3 (11:57→21:31)
[2018-08-23] MEDS: ACETAMINOPHEN TAB 325 MG TAB PO PRN (11:58)
[2018-08-23] MEDS: VANCOMYCIN 1,500 MG in SODIUM CHLORIDE 0.9% 250 ML IVPB SCH ×2 (12:44→23:03)
--- NOTE | 2018-08-23 12:53 | P.PN ---
Subjective Progress Note Date: 08/23/18 This is a 68-year-old female with history of diabetes, hypertension, hyperlipidemia, GERD, sleep apnea, who presented to the hospital mainly with symptoms of several episodes of nausea and vomiting, she was also noted on admission here to have a low-grade temperature. She states that she was feeling extremely weak, and also having episodes of confusion. Patient underwent a CT of the chest on admission here which revealed evidence of bilateral lung infiltrates suggestive of possible pneumonia. Patient denies any chest discomfort, no history of prior myocardial infarction. A cardiology consultation was initially requested because of abnormality in troponin, which was likely secondary to pneumonia and sepsis. Overall picture not suggestive of acute coronary syndrome. An echocardiogram with Doppler study has been requested which is yet pending. Blood pressure 110/70 with a heart rate in the 60s, 95% on 2 L of oxygen. White blood cell count 5.5, hemoglobin 11.2, platelet count 196. Sodium 141, potassium 4.5, BUN 11, creatinine 0.6. This morning patient is alert and oriented, resting comfortably in bed. Hemodynamically stable, afebrile. Objective - Vital Signs Vital signs: Vital Signs Temp 98.1 F 08/23/18 11:21 Pulse 68 08/23/18 11:21 Resp 16 08/23/18 11:21 BP 111/71 08/23/18 11:21 Pulse Ox 95 08/23/18 11:21 Intake & Output 08/22/18 08/23/18 08/23/18 18:59 06:59 18:59 Weight 89.9 kg Other: Voiding Method Toilet Toilet Toilet Diaper Diaper # Voids 2 - Exam 68-year-old female in no acute distress at the time of my examination HEENT head normocephalic and atraumatic Neck is supple no JVD no goiter no lymphadenopathy Chest exam reveals a few scattered crackles no wheezing Cardiac exam reveals regular heart sounds S1 and S2 no gallops no murmurs Abdomen is soft nontender no organomegaly with normal bowel sounds Extremity exam reveals no edema no cyanosis or clubbing Neurological examination reveals generalized weakness without any focal abnormality - Labs CBC & Chem 7: 08/23/18 06:54 08/23/18 06:54 Labs: Abnormal Lab Results - Last 24 Hours (Table) 08/22/18 08/23/18 08/23/18 Range/Units 15:52 06:02 06:54 Hgb (11.4-16.0) gm/dL RDW (11.5-15.5) % APTT 31.0 H (22.0-30.0) sec Chloride 109 H (98-107) mmol/L Glucose 142 H (74-99) mg/dL POC Glucose (mg/dL) 155 H (75-99) mg/dL Total Protein 5.8 L (6.3-8.2) g/dL Albumin 2.9 L (3.5-5.0) g/dL Triglycerides 183 H (<150) mg/dL LDL Cholesterol, Calc 119 H (0-99) mg/dL HDL Cholesterol 25 L (40-60) mg/dL 08/23/18 08/23/18 Range/Units 06:54 11:13 Hgb 11.2 L (11.4-16.0) gm/dL RDW 16.1 H (11.5-15.5) % APTT (22.0-30.0) sec Chloride (98-107) mmol/L Glucose (74-99) mg/dL POC Glucose (mg/dL) 174 H (75-99) mg/dL Total Protein (6.3-8.2) g/dL Albumin (3.5-5.0) g/dL Triglycerides (<150) mg/dL LDL Cholesterol, Calc (0-99) mg/dL HDL Cholesterol (40-60) mg/dL Microbiology - Last 24 Hours (Table) 08/21/18 18:40 Blood Culture - Preliminary Blood No Growth after 24 hours 08/21/18 21:31 Urine Culture - Preliminary Urine,Catheterized Assessment and Plan Plan: Assessment and plan #1 abnormality in troponin, not suggestive of acute coronary syndrome on a likely secondary to sepsis and pneumonia. #2 bilateral pulmonary infiltrate suggestive of pneumonia #3 nausea and vomiting for the last 3 days amylase and lipase are normal computed tomography scan of the abdomen and pelvis failed to revealed any acute abnormality #4 underlying history of hypertension #5 underlying history of hyperlipidemia #6 underlying history of insulin-dependent diabetes mellitus #7 underlying history of hypothyroidism #8 underlying history of chronic back pain with recent implantation of pain pump Plan We will review the patient's echocardiogram with Doppler study. If the echocardiogram with Doppler study reveals a normal left ventricular systolic function we'll follow this patient with you on an as-needed basis only. DNP note has been reviewed, I agree with a documented findings and plan of care. Patient was seen and examined.
[2018-08-23] MEDS ORDERED: IPRATROPIUM-ALBUTEROL 3 ML NEB INHALATION PRN (15:13)
[2018-08-23] MEDS: VALSARTAN 80 MG TAB PO SCH (15:51)
[2018-08-23 16:02] LABS: Glucose,Whole Blood 111 mg/dL (75-99)
--- NOTE | 2018-08-23 18:10 | CONS ---
CONSULTATION PULMONARY CRITICAL CARE CONSULT: DATE OF SERVICE: August 23, 2018. HISTORY OF PRESENT ILLNESS: This is a 68-year-old female who presented to the emergency department with mental status changes. The patient apparently was alert and oriented x1 when she arrived. She was not a particularly good historian. Apparently there was some episodes of nausea and vomiting for the last 2 days prior to admission. She was apparently evaluated in the emergency room. She had no fever or chills. There was no chest pain or chest discomfort. There was no shortness of breath. The patient apparently was thought to have a possible underlying pneumonia and she may have aspirated. Currently doing much better. Resting comfortably in bed. at the bedside. She really denies any major complaints, although she does have a bit of cough now and minimal chest congestion. Not really producing any phlegm. Again her primary complaint was nausea, vomiting as well as the mental status changes. MEDICATIONS ARE: Reviewed. They include aspirin, Nexium, Victoza, Robaxin, Ultram, Crestor, Lantus insulin, Synthroid, Invokana, Celebrex, Cymbalta, Motrin, Myrbetriq, singular, Diovan, morphine pain pump, Nocdurna and metformin. ALLERGIES: INCLUDE NEOMYCIN, SULFA ANTIBIOTICS, TRIMETHOPRIM, AND MORPHINE. PAST MEDICAL HISTORY: Positive for diabetes mellitus, gastroesophageal reflux disease, hyperlipidemia, hypertension, sleep apnea, colitis, irregular heartbeat, left breast cancer, herniated disc, and a previous episode of MRSA infection. SURGICAL HISTORY: Includes among other things, left mastectomy, back surgery, cholecystectomy, hysterectomy, reconstructive breast surgery with breast implant, sinus surgery x3, colonoscopy, and recent pain pump implantation. SOCIAL HISTORY: Negative for tobacco use. Denies any alcohol use or illicit drug use. FAMILY HISTORY: Positive for cancer. REVIEW OF SYSTEMS: CONSTITUTIONAL: Mental status changes, which have improved dramatically. NEUROLOGIC: Negative. HEENT negative. CARDIOVASCULAR: Negative. PULMONARY: Minimal cough, chest congestion. Cough is mostly nonproductive. Mild shortness of breath. GI: Nausea, vomiting, which is also resolved itself. negative. RHEUMATOLOGIC/IMMUNOLOGIC negative. ENDOCRINOLOGIC and DERMATOLOGIC: Negative. PHYSICAL EXAMINATION: VITAL SIGNS: Current vital signs are reviewed. Temperature 98.1 heart rate 68, respiratory 16, blood pressure 111/71, mean of 84 and 2 L saturation 97%. GENERAL: She appears in no acute distress. RESPIRATORY: No acute respiratory distress. No use of accessory muscles. No audible wheezing. HEENT examination is grossly unremarkable. Nasal O2 in place. Mucous membranes are moist. NECK: Supple. Full range of motion. No adenopathy or thyromegaly. Neck veins are flat. CARDIOVASCULAR examination reveals regular rhythm and rate. Heart rate 68. S1, S2 normal. No S3, S4, or murmur. LUNGS: Some minimal rhonchi. No wheezes or crackles. Breath sounds equal bilaterally. ABDOMEN: Soft. Bowel sounds are heard. Extremities are intact. No cyanosis, clubbing, or edema. Skin without rash. Neurologic examination is brief but nonfocal. LAB DATA: Reviewed. White count 5.5, hemoglobin 11.2, hematocrit 35.3, and platelet count a 196,000. Sodium, potassium, normal. Chloride 109. CO2 28, anion gap is normal. BUN and creatinine were 11 and 0.62. The rest of the labs are reviewed. Her troponin was 0.667. X-RAY: Chest x-ray showed no active cardiopulmonary disease. A brain CT revealed no acute changes. Abdominal and pelvic CT showed either an infiltrate and/or atelectasis at the lung bases as well as small pleural effusions. Abdomen and pelvis do not show any acute changes. CT angiogram of the chest confirms some bibasilar infiltrates or atelectasis and small pleural effusions. There is no pulmonary embolism. Microbiologic study show gram-negative bacilli in the urine. Blood cultures are negative. ASSESSMENT: 1. Possible aspiration pneumonia versus basilar atelectasis. 2. Gram-negative bacilli urinary tract infection, probably secondary to a Escherichia coli. 3. Nausea and vomiting, which may relate to a urinary tract infection/pyelonephritis. 4. History of diabetes mellitus. 5. History of gastroesophageal reflux disease. 6. History of hyperlipidemia. 7. History of hypertension. 8. History of sleep apnea syndrome. 9. History of left breast cancer status post left mastectomy. 10.Multiple orthopedic procedures. PLAN: The patient's labs and x-rays and medications are all reviewed. She appears relatively comfortable at this time. We will continue to follow. We will wait for the identification of the gram-negative bacilli in the urine. Currently, the patient is on Zosyn and vancomycin. Additional recommendations and suggestions are forthcoming. We will continue to follow. A repeat chest x-ray will be done in a day or so. MMMUNIRAL / IJN: [id number] /
[2018-08-23] MEDS: SODIUM CHLORIDE 0.9% 1,000 ML IV SCH ×2 (20:12→23:04)
[2018-08-23] MEDS: [UNRECOGNIZED DRUG - OTHER] SUBLINGUAL SCH (20:20)
[2018-08-23] MEDS: HEPARIN SODIUM,PORCINE 5,000 UNIT/ML 1 ML VIAL SQ SCH (20:20)
[2018-08-23] MEDS: IPRATROPIUM-ALBUTEROL 3 ML NEB INHALATION SCH (20:22)
[2018-08-23 21:21] LABS: Glucose,Whole Blood 149 mg/dL (75-99)
[2018-08-24] MEDS: PIPERACILLIN-TAZOBACTAM 3.375 GM in SODIUM CHLORIDE 0.9% 100 ML IVPB SCH ×3 (02:02→17:13)
[2018-08-24] MEDS: ACETAMINOPHEN TAB 325 MG TAB PO PRN (03:40)
[2018-08-24 06:11] LABS: Glucose,Whole Blood 69 mg/dL (75-99)
[2018-08-24] MEDS: LEVOTHYROXINE 75 MCG TAB PO SCH (06:11)
[2018-08-24] MEDS: INSULIN ASPART 100 UNIT/ML 1 ML 10 ML VIAL SQ SCH ×4 (06:11→21:15)
[2018-08-24] MEDS: PANTOPRAZOLE 40 MG TABLET PO SCH ×2 (06:11→17:13)
[2018-08-24 06:34] LABS: Glucose,Whole Blood 82 mg/dL (75-99)
[2018-08-24] MEDS: MYRBETRIQ 50MG PO SCH (09:11)
[2018-08-24] MEDS: ATORVASTATIN 80 MG TAB PO SCH (09:15)
[2018-08-24] MEDS: HEPARIN SODIUM,PORCINE 5,000 UNIT/ML 1 ML VIAL SQ SCH ×2 (09:15→20:07)
[2018-08-24] MEDS: ASPIRIN 325 MG TAB PO SCH (09:15)
[2018-08-24] MEDS: DULoxetine HCL 60 MG CAPSULE.DR PO SCH (09:15)
[2018-08-24] MEDS: DOCUSATE 100 MG CAP PO SCH ×2 (09:15→20:07)
[2018-08-24] MEDS: INSULIN DETEMIR 100 UNIT/ML 10 ML VIAL SQ SCH (09:16)
[2018-08-24] MEDS: IPRATROPIUM-ALBUTEROL 3 ML NEB INHALATION SCH ×3 (10:06→21:08)
[2018-08-24] MEDS ORDERED: VANCOMYCIN TROUGH DUE 1 EACH MISC MISCELLANE ONE (11:00)
[2018-08-24 11:21] LABS: Anisocytosis Slight; Basophils % (A) 1 %; Eosinophils # (A) 0.3 k/uL (0-0.7); Eosinophils % (A) 5 %; HCT 35.7 % (34.0-46.0); HGB 11.4 gm/dL (11.4-16.0); Hypochromasia Slight; Lymphocytes # (A) 1.8 k/uL (1.0-4.8); Lymphocytes % (A) 35 %; MCH 28.6 pg (25.0-35.0); MCHC 31.8 g/dL (31.0-37.0); Monocytes # (A) 0.4 k/uL (0-1.0); Monocytes % (A) 8 %; Neutrophils # (A) 2.5 k/uL (1.3-7.7); Neutrophils % (A) 50 %; Platelet Count 212 k/uL (150-450); RBC 3.97 m/uL (3.80-5.40); RDW 16.3 % (11.5-15.5); WBC 5.1 k/uL (3.8-10.6)
[2018-08-24 11:33] LABS: Albumin 2.9 g/dL (3.5-5.0); Calcium 9.2 mg/dL (8.4-10.2); Potassium 5.3 mmol/L (3.5-5.1); Total Bilirubin 0.4 mg/dL (0.2-1.3); Total Protein 5.8 g/dL (6.3-8.2)
[2018-08-24 11:51] LABS: Glucose,Whole Blood 157 mg/dL (75-99)
[2018-08-24] MEDS: VALSARTAN 40 MG TAB PO SCH (12:12)
[2018-08-24] MEDS: MONTELUKAST 10 MG TAB PO SCH (12:12)
[2018-08-24] MEDS: VANCOMYCIN 1,500 MG in SODIUM CHLORIDE 0.9% 250 ML IVPB SCH (12:19)
[2018-08-24] MEDS ORDERED: VANCOMYCIN 1,250 MG in SODIUM CHLORIDE 0.9% 250 ML IVPB SCH (13:00)
[2018-08-24] MEDS ORDERED: SODIUM POLYSTYRENE SULFONATE 15 GM/60 ML BOTTLE PO STA (13:42)
--- NOTE | 2018-08-24 13:44 | P.PN ---
Subjective Progress Note Date: 08/24/18 Daja Herman is a 68-year-old female patient of Dr. Annelise Rose who presented to [facility] emergency room with a chief complaint of confusion and severe weakness, patient stated that she has been having nausea and vomiting for 3 days prior to admission she was evaluated in emergency room, temperature on presentation was 100.9 white blood count was elevated at 11.6 d-dimer was borderline elevated at 0.60 troponin was significantly elevated at 1.130 patient was started on IV heparin in the emergency room and cardiology consultation was requested, also in the emergency room patient had a computed tomography scan of the brain without contrast which was within normal limits, she also had a CT angiogram of the chest that revealed no evidence of pulmonary embolism however there was evidence of bilateral pulmonary infiltrates, she also underwent a computed tomography scan of the abdomen and pelvis that revealed no significant abnormality. Patient was started on IV antibiotic Zosyn and vancomycin in the emergency room for pulmonary infiltrates, she was kept on IV heparin per protocol and was admitted to telemetry floor cardiology consultation is requested. On 08/23/2018 patient is currently alert and oriented 3 resting comfortably in bed. Patient has remained afebrile. At this time patient denies chest pain or shortness of breath. Denies nausea vomiting or diarrhea. Patient denies any urinary burning or frequency. 08/24/2018 patient complaining of constipation today. Several days since last bowel movement. No further episodes of nausea or vomiting. She is also complaining of some difficulty with swallowing. So speech therapy will be placed on consult. Potassium is elevated at 5.3 will give Kayexalate anticipate that will help with constipation as well. Urine culture growing Klebsiella pneumoniae patient is a 40 on Zosyn. We'll discontinue vancomycin at this point. And will monitor. Cardiology has signed off. They felt patient 's elevated troponins were likely secondary to pneumonia and sepsis picture. Patient reports her cough is improving Objective - Vital Signs Vital signs: Vital Signs Temp 97.9 F 08/24/18 11:38 Pulse 70 08/24/18 13:22 Resp 18 08/24/18 11:38 BP 128/69 08/24/18 11:38 Pulse Ox 95 08/24/18 08:00 Intake & Output 08/23/18 08/24/18 08/24/18 18:59 06:59 18:59 Intake Total 1372 Output Total 1200 Balance 172 Weight 90.5 kg Intake: IV 550 Piperacillin-Tazobactam 3 100 .375 gm In Sodium Chloride 0.9% 100 ml @ 25 mls/hr IVPB Q8H [facility] Rx#: [id number] Sodium Chloride 0.9% 1, 200 000 ml @ 75 mls/hr IV . [id number] [facility] Rx#:[id number] Vancomycin 1,500 mg In 250 Sodium Chloride 0.9% 250 ml @ 125 mls/hr IVPB Q12H [facility] Rx#:[id number] Oral 822 Output: Urine 1200 Other: Voiding Method Toilet Toilet Toilet Diaper Diaper Diaper # Voids 2 2 - Exam Head normocephalic Neck supple Lungs clear to auscultation bilaterally no wheezing or crackles Heart regular rate and rhythm S1-S2, no rub or gallop Abdomen is soft nontender nondistended positive bowel sounds no hepatosplenomegaly Extremities no edema Neuro alert and orientated to 3 - Labs CBC & Chem 7: 08/24/18 10:34 08/24/18 10:34 Labs: Abnormal Lab Results - Last 24 Hours (Table) 08/23/18 08/23/18 08/24/18 Range/Units 15:59 21:20 06:09 RDW (11.5-15.5) % Potassium (3.5-5.1) mmol/L Carbon Dioxide (22-30) mmol/L Glucose (74-99) mg/dL POC Glucose (mg/dL) 111 H 149 H 69 L (75-99) mg/dL Total Protein (6.3-8.2) g/dL Albumin (3.5-5.0) g/dL 08/24/18 08/24/18 08/24/18 Range/Units 10:34 10:34 11:48 RDW 16.3 H (11.5-15.5) % Potassium 5.3 H (3.5-5.1) mmol/L Carbon Dioxide 34 H (22-30) mmol/L Glucose 178 H (74-99) mg/dL POC Glucose (mg/dL) 157 H (75-99) mg/dL Total Protein 5.8 L (6.3-8.2) g/dL Albumin 2.9 L (3.5-5.0) g/dL Microbiology - Last 24 Hours (Table) 08/21/18 21:31 Urine Culture - Final Urine,Catheterized Klebsiella pneumoniae 08/21/18 18:40 Blood Culture - Preliminary Blood No Growth after 48 hours Assessment and Plan Assessment: #1 elevated troponins: Possibly secondary to pneumonia and sepsis per cardiology. They've ordered echo and have signed off. #2 possible aspiration pneumonia versus basilar atelectasis: Followed by pulmonary service. Currently on IV Zosyn. Awaiting sputum culture. We'll discontinue vancomycin #3 nausea and vomiting for the last 3 days amylase and lipase are normal computed tomography scan of the abdomen and pelvis failed to revealed any acute abnormality nausea and vomiting likely related to UTI #4 underlying history of hypertension, well-controlled on current medications #5 underlying history of hyperlipidemia maintained on Crestor #6 underlying history of insulin-dependent diabetes mellitus maintained on Lantus 50 units subcu daily, Actos, metformin and invokana hemoglobin A1c on admission 8.1 #7 underlying history of hypothyroidism maintained on Synthroid 75 g daily #8 underlying history of chronic back pain with recent implantation of pain pump #9 difficulty with swallowing concerns for possible aspiration pneumonia. Consult speech therapy for swallow evaluation #10 hyperkalemia: Potassium 5.3. We'll give Kayexalate 15 g 1. Repeat potassium level in a.m. #11 constipation we will improve with the Kayexalate. Continue to monitor DVT prophylaxis heparin. GI prophylaxis Protonix I performed an examination of the patient and discussed their management with the physician Larder Cook. I have reviewed the Physician Larder Cook's notes and agree with the documented findings and plan of care
[2018-08-24] MEDS: NON-FORMULARY DRUG (Morphine Pain Pump 1 DOSE) INTRATHECA SCH (14:05)
[2018-08-24] MEDS: SODIUM CHLORIDE 0.9% 1,000 ML IV SCH (14:17)
--- NOTE | 2018-08-24 14:19 | P.PN ---
Subjective Progress Note Date: 08/24/18 This is a 68-year-old female with history of diabetes, hypertension, hyperlipidemia, GERD, sleep apnea, who presented to the hospital mainly with symptoms of several episodes of nausea and vomiting, she was also noted on admission here to have a low-grade temperature. She states that she was feeling extremely weak, and also having episodes of confusion. Patient underwent a CT of the chest on admission here which revealed evidence of bilateral lung infiltrates suggestive of possible pneumonia. Patient denies any chest discomfort, no history of prior myocardial infarction. A cardiology consultation was initially requested because of abnormality in troponin, which was likely secondary to pneumonia and sepsis. Overall picture not suggestive of acute coronary syndrome. An echocardiogram with Doppler study has been requested which is yet pending. Blood pressure 110/70 with a heart rate in the 60s, 95% on 2 L of oxygen. White blood cell count 5.5, hemoglobin 11.2, platelet count 196. Sodium 141, potassium 4.5, BUN 11, creatinine 0.6. This morning patient is alert and oriented, resting comfortably in bed. Hemodynamically stable, afebrile. 08/24/2018 Patient was seen and examined this morning, complaining of constipation. She's had no further episodes of nausea or vomiting, speech therapy has been asked to see and evaluate the patient regarding some difficulty in swallowing. Potassium was elevated at 5.3 and patient was given some Kayexalate. Urine culture is growing Klebsiella . We are still waiting the results of the echocardiogram with Doppler study, if normal we will follow the patient along with you on an as-needed basis only. Objective - Vital Signs Vital signs: Vital Signs Temp 97.9 F 08/24/18 11:38 Pulse 70 08/24/18 13:22 Resp 18 08/24/18 11:38 BP 128/69 08/24/18 11:38 Pulse Ox 95 08/24/18 08:00 Intake & Output 08/23/18 08/24/18 08/24/18 18:59 06:59 18:59 Intake Total 1372 100 Output Total 1200 Balance 172 100 Weight 90.5 kg Intake: IV 550 Piperacillin-Tazobactam 3 100 .375 gm In Sodium Chloride 0.9% 100 ml @ 25 mls/hr IVPB Q8H [facility] Rx#: [id number] Sodium Chloride 0.9% 1, 200 000 ml @ 75 mls/hr IV . [id number] [facility] Rx#:[id number] Vancomycin 1,500 mg In 250 Sodium Chloride 0.9% 250 ml @ 125 mls/hr IVPB Q12H [facility] Rx#:[id number] Intake, IV Titration 100 Amount Piperacillin-Tazobactam 3 100 .375 gm In Sodium Chloride 0.9% 100 ml @ 25 mls/hr IVPB Q8H [facility] Rx#: [id number] Oral 822 Output: Urine 1200 Other: Voiding Method Toilet Toilet Toilet Diaper Diaper Diaper # Voids 2 2 3 - Exam 68-year-old female in no acute distress at the time of my examination HEENT head normocephalic and atraumatic Neck is supple no JVD no goiter no lymphadenopathy Chest exam reveals a few scattered crackles no wheezing Cardiac exam reveals regular heart sounds S1 and S2 no gallops no murmurs Abdomen is soft nontender no organomegaly with normal bowel sounds Extremity exam reveals no edema no cyanosis or clubbing Neurological examination reveals generalized weakness without any focal abnormality - Labs CBC & Chem 7: 08/24/18 10:34 08/24/18 10:34 Labs: Abnormal Lab Results - Last 24 Hours (Table) 08/23/18 08/23/18 08/23/18 Range/Units 14:25 15:59 21:20 RDW (11.5-15.5) % Potassium (3.5-5.1) mmol/L Carbon Dioxide (22-30) mmol/L Glucose (74-99) mg/dL POC Glucose (mg/dL) 111 H 149 H (75-99) mg/dL Total Protein (6.3-8.2) g/dL Albumin (3.5-5.0) g/dL Procalcitonin 0.15 H (0.02-0.09) ng/mL 08/24/18 08/24/18 08/24/18 Range/Units 06:09 10:34 10:34 RDW 16.3 H (11.5-15.5) % Potassium 5.3 H (3.5-5.1) mmol/L Carbon Dioxide 34 H (22-30) mmol/L Glucose 178 H (74-99) mg/dL POC Glucose (mg/dL) 69 L (75-99) mg/dL Total Protein 5.8 L (6.3-8.2) g/dL Albumin 2.9 L (3.5-5.0) g/dL Procalcitonin (0.02-0.09) ng/mL 08/24/18 Range/Units 11:48 RDW (11.5-15.5) % Potassium (3.5-5.1) mmol/L Carbon Dioxide (22-30) mmol/L Glucose (74-99) mg/dL POC Glucose (mg/dL) 157 H (75-99) mg/dL Total Protein (6.3-8.2) g/dL Albumin (3.5-5.0) g/dL Procalcitonin (0.02-0.09) ng/mL Microbiology - Last 24 Hours (Table) 08/21/18 21:31 Urine Culture - Final Urine,Catheterized Klebsiella pneumoniae 08/21/18 18:40 Blood Culture - Preliminary Blood No Growth after 48 hours Assessment and Plan Plan: Assessment and plan #1 abnormality in troponin, not suggestive of acute coronary syndrome on a likely secondary to sepsis and pneumonia. #2 bilateral pulmonary infiltrate suggestive of pneumonia #3 nausea and vomiting for the last 3 days amylase and lipase are normal computed tomography scan of the abdomen and pelvis failed to revealed any acute abnormality #4 underlying history of hypertension #5 underlying history of hyperlipidemia #6 underlying history of insulin-dependent diabetes mellitus #7 underlying history of hypothyroidism #8 underlying history of chronic back pain with recent implantation of pain pump Plan We will review the patient's echocardiogram with Doppler study. If the echocardiogram with Doppler study reveals a normal left ventricular systolic function we'll follow this patient with you on an as-needed basis only. DNP note has been reviewed, I agree with a documented findings and plan of care. Patient was seen and examined.
[2018-08-24 16:37] LABS: Glucose,Whole Blood 103 mg/dL (75-99)
--- NOTE | 2018-08-24 17:39 | PN ---
PROGRESS NOTE DATE OF SERVICE: 08/24/2018 This is a 68-year-old female who I saw in consultation yesterday. She came into the emergency department with mental status changes. The patient was apparently having some nausea and vomiting for the 2 days or so prior to admission and possibly aspirated. In addition, she was found to have a Klebsiella pneumoniae urinary tract infection. Today, she is doing much better. She remains on good antibiotic for her infection. Her respiratory issues have pretty much resolved. She has a bit of a cough and chest congestion, but not really producing much phlegm. She may have a very mild bronchitis. Anyway, she seems to be resting comfortably and doing much better. MEDICAL HISTORY: She does have a history of diabetes, gastroesophageal reflux disease, hyperlipidemia, hypertension, sleep apnea syndrome, breast cancer status post left mastectomy and multiple orthopedic procedures. PHYSICAL EXAMINATION: Current vital signs are reviewed her temperature is 98.7, heart rate 89, respiratory rate 18, blood pressure 121/62, mean 80 and room air saturation is 90-94 percent. Appears in no acute distress. Lying flat in bed. In no acute distress. No respiratory distress. No audible wheezing. No use of accessory muscles. HEENT examination is grossly unremarkable. Mucous membranes are moist. Neck is supple. Full range of motion. No adenopathy or thyromegaly. Neck veins are flat. Cardiovascular examination reveals regular rhythm and rate. S1, S2 normal. No murmur. No S3, S4. Lungs reveal a few scattered rhonchi. No wheezes. No crackles. Breath sounds equal. Abdomen is soft. Bowel sounds are heard. No masses or tenderness. Extremities are intact. No cyanosis, clubbing, or edema. Skin without rash. Neurologic examination is brief but nonfocal. Microbiologic sampling shows Klebsiella pneumoniae in the urine. It was sensitive to just about everything including what the patient was on. LABORATORY DATA: Reviewed. White count 5.1, hemoglobin 11.4, hematocrit 35.7, platelet count 312,000. Sodium 142, potassium 5.3, chloride 106, CO2 is 34. BUN and creatinine were 9 and 0.82. The rest of the labs are reviewed. Chest x-rays reviewed. ASSESSMENT: 1. Possible aspiration pneumonia versus basilar atelectasis. 2. Gram-negative bacilli urinary tract infection, secondary to Klebsiella pneumoniae. 3. Nausea, vomiting, which may relate to acute cystitis and/or pyelonephritis. 4. History of diabetes mellitus. 5. History of gastroesophageal reflux disease. 6. Hyperlipidemia. 7. Benign essential hypertension. 8. Sleep apnea syndrome. 9. Left breast cancer, status post left mastectomy. 10.Multiple orthopedic procedures. PLAN: The patient is doing relatively well. Her respiratory status is improved dramatically. The patient's urinary tract infections being caused by Klebsiella pneumoniae. She is on appropriate antibiotics. We will continue to follow. No additional recommendations are made. Prognosis is guarded. MMODL / IJN: [id number] /
--- NOTE | 2018-08-24 18:29 | ECHOF ---
Referral Reason:r/o mi MEASUREMENTS -------- HEIGHT: 160.0 cm WEIGHT: 89.8 kg BP: 122/68 IVSd: 1.3 cm (0.6 - 1.1) LVIDd: 3.8 cm (3.9 - 5.3) LVPWd: 1.5 cm (0.6 - 1.1) IVSs: 1.5 cm LVIDs: 2.2 cm LVPWs: 1.4 cm Ao Diam: 3.0 cm (2.0 - 3.7) AV Cusp: 1.5 cm (1.5 - 2.6) LA Diam: 2.5 cm (2.7 - 3.8) MV EXCURSION: 13.536 mm (> 18.000) MV EF SLOPE: 110 mm/s (70 - 150) EPSS: 0.6 cm MV E Bright: 0.90 m/s MV DecT: 176 ms MV A Bright: 0.83 m/s MV E/A Ratio: 1.08 RAP: 5.00 mmHg RVSP: 10.99 mmHg FINDINGS -------- Sinus rhythm. This was a technically difficult study with suboptimal views. Pt. Has Breast inplants The left ventricular size is normal. There is mild concentric left ventricular hypertrophy. Overa ll left ventricular systolic function is normal with, an EF between 55 - 60 %. The right ventricle is normal in size and function. The left atrium is normal in size. The right atrium is normal in size. Lumason used Aortic valve is trileaflet and is mildly thickened. The mitral valve leaflets are mildly thickened. Mild mitral annular calcification present. There is trace mitral regurgitation. Trace tricuspid regurgitation present. The right ventricular systolic pressure, as measured by Dopp ler, is 10.99mmHg. Pulmonic valve appears structurally normal. The aortic root size is normal. IVC Not well visulized. There is a trivial pericardial effusion present. CONCLUSIONS -------- 1. Sinus rhythm. 2. This was a technically difficult study with suboptimal views. 3. Pt. Has Breast inplants 4. The left ventricular size is normal. 5. There is mild concentric left ventricular hypertrophy. 6. Overall left ventricular systolic function is normal with, an EF between 55 - 60 %. 7. The right ventricle is normal in size and function. 8. The left atrium is normal in size. 9. The right atrium is normal in size. 10. Lumason used 11. Aortic valve is trileaflet and is mildly thickened. 12. The mitral valve leaflets are mildly thickened. 13. Mild mitral annular calcification present. 14. There is trace mitral regurgitation. 15. Trace tricuspid regurgitation present. 16. The right ventricular systolic pressure, as measured by Doppler, is 10.99mmHg. 17. Pulmonic valve appears structurally normal. 18. The aortic root size is normal. 19. IVC Not well visulized. 20. There is a trivial pericardial effusion present. DOCUMENTATION BILLING CLERK: Carolin Gupta RDCS
[2018-08-24] MEDS: [UNRECOGNIZED DRUG - OTHER] SUBLINGUAL SCH (20:09)
[2018-08-24 20:54] LABS: Glucose,Whole Blood 108 mg/dL (75-99)
[2018-08-24] MEDS ORDERED: IPRATROPIUM-ALBUTEROL 3 ML NEB ONE (23:10)
[2018-08-25] MEDS ORDERED: ACETAMINOPHEN TAB 325 MG TAB ONE (02:00)
[2018-08-25] MEDS: SODIUM CHLORIDE 0.9% 1,000 ML IV SCH ×2 (04:55→17:38)
[2018-08-25] MEDS: PIPERACILLIN-TAZOBACTAM 3.375 GM in SODIUM CHLORIDE 0.9% 100 ML IVPB SCH ×3 (04:55→17:38)
[2018-08-25 05:27] LABS: Glucose,Whole Blood 76 mg/dL (75-99)
[2018-08-25] MEDS: INSULIN ASPART 100 UNIT/ML 1 ML 10 ML VIAL SQ SCH ×4 (05:54→22:57)
[2018-08-25] MEDS: PANTOPRAZOLE 40 MG TABLET PO SCH ×2 (06:13→17:39)
[2018-08-25] MEDS: LEVOTHYROXINE 75 MCG TAB PO SCH (06:13)
[2018-08-25 07:37] LABS: Calcium 8.7 mg/dL (8.4-10.2); Potassium 3.9 mmol/L (3.5-5.1); Total Bilirubin 0.5 mg/dL (0.2-1.3)
[2018-08-25] MEDS: IPRATROPIUM-ALBUTEROL 3 ML NEB INHALATION SCH ×3 (07:53→21:28)
[2018-08-25 08:00] LABS: Anisocytosis Slight; Basophils % (A) 1 %; Eosinophils # (A) 0.3 k/uL (0-0.7); Eosinophils % (A) 6 %; HCT 35.9 % (34.0-46.0); HGB 11.5 gm/dL (11.4-16.0); Lymphocytes # (A) 1.5 k/uL (1.0-4.8); Lymphocytes % (A) 29 %; MCH 28.5 pg (25.0-35.0); MCV 88.9 fL (80.0-100.0); Monocytes # (A) 0.3 k/uL (0-1.0); Monocytes % (A) 6 %; Neutrophils % (A) 57 %; Platelet Count 230 k/uL (150-450); RBC 4.04 m/uL (3.80-5.40); RDW 16.4 % (11.5-15.5); WBC 5.2 k/uL (3.8-10.6)
[2018-08-25] MEDS: MYRBETRIQ 50MG PO SCH (08:31)
[2018-08-25] MEDS: DOCUSATE 100 MG CAP PO SCH ×2 (08:32→20:01)
[2018-08-25] MEDS: MONTELUKAST 10 MG TAB PO SCH (08:32)
[2018-08-25] MEDS: VALSARTAN 40 MG TAB PO SCH (08:32)
[2018-08-25] MEDS: ASPIRIN 325 MG TAB PO SCH (08:32)
[2018-08-25] MEDS: ATORVASTATIN 80 MG TAB PO SCH (08:32)
[2018-08-25] MEDS: DULoxetine HCL 60 MG CAPSULE.DR PO SCH (08:32)
[2018-08-25] MEDS: HEPARIN SODIUM,PORCINE 5,000 UNIT/ML 1 ML VIAL SQ SCH ×2 (08:32→20:01)
[2018-08-25] MEDS: INSULIN DETEMIR 100 UNIT/ML 10 ML VIAL SQ SCH (08:40)
[2018-08-25] MEDS: NON-FORMULARY DRUG (Morphine Pain Pump 1 DOSE) INTRATHECA SCH (10:46)
[2018-08-25 11:16] LABS: Glucose,Whole Blood 235 mg/dL (75-99)
--- NOTE | 2018-08-25 14:55 | P.PN ---
Subjective Progress Note Date: 08/25/18 Principal diagnosis: She is seen today 08/25/2017 in follow-up on the selective care unit. She is currently resting quite comfortably in bed. She is awake and alert in no acute distress. Oriented 3. Maintaining good O2 saturations in the low 90s on room air. She's afebrile. Hemodynamically stable. Urine culture positive for Klebsiella pneumoniae. White count 5.2. Hemoglobin 11.5. Creatinine 0.87. Currently on Zosyn and bronchodilators. Objective - Vital Signs Vital signs: Vital Signs Temp 98.1 F 08/25/18 11:32 Pulse 75 08/25/18 13:28 Resp 18 08/25/18 11:32 BP 137/78 08/25/18 11:32 Pulse Ox 92 L 08/25/18 11:32 Intake & Output 08/24/18 08/25/18 08/25/18 18:59 06:59 18:59 Intake Total 100 580 Balance 100 580 Weight 90.2 kg Intake: Intake, IV Titration 100 Amount Piperacillin-Tazobactam 3 100 .375 gm In Sodium Chloride 0.9% 100 ml @ 25 mls/hr IVPB Q8H [facility] Rx#: [id number] Oral 580 Other: Voiding Method Toilet Toilet Toilet Diaper Diaper Diaper # Voids 3 2 1 - Exam GENERAL EXAM: Alert, active, comfortable in no apparent distress. On room air. HEAD: Normocephalic. EYES: Normal reaction of pupils, equal size. NOSE: Clear with pink turbinates. THROAT: No erythema or exudates. NECK: No masses, no JVD. CHEST: No chest wall deformity. LUNGS: Equal air entry with no crackles, wheeze, rhonchi or dullness. CVS: S1 and S2 normal with no audible murmur, regular rhythm. ABDOMEN: No hepatosplenomegaly, normal bowel sounds, no guarding or rigidity. SPINE: No scoliosis or deformity SKIN: No rashes CENTRAL NERVOUS SYSTEM: No focal deficits, tone is normal in all 4 extremities. EXTREMITIES: There is no peripheral edema. No clubbing, no cyanosis. Peripheral pulses are intact. - Labs CBC & Chem 7: 08/25/18 06:21 08/25/18 06:21 Labs: Abnormal Lab Results - Last 24 Hours (Table) 08/24/18 08/24/18 08/25/18 Range/Units 16:30 20:53 06:21 RDW (11.5-15.5) % Carbon Dioxide 33 H (22-30) mmol/L BUN 6 L (7-17) mg/dL POC Glucose (mg/dL) 103 H 108 H (75-99) mg/dL Total Protein 6.0 L (6.3-8.2) g/dL Albumin 3.0 L (3.5-5.0) g/dL 08/25/18 08/25/18 Range/Units 06:21 11:08 RDW 16.4 H (11.5-15.5) % Carbon Dioxide (22-30) mmol/L BUN (7-17) mg/dL POC Glucose (mg/dL) 235 H (75-99) mg/dL Total Protein (6.3-8.2) g/dL Albumin (3.5-5.0) g/dL Microbiology - Last 24 Hours (Table) 08/21/18 18:40 Blood Culture - Preliminary Blood No Growth after 72 hours Assessment and Plan Assessment: Impression: #1 Dyspnea secondary to suspected aspiration pneumonia versus basilar atelectasis. #2 Urinary tract infection secondary to Klebsiella pneumoniae #3 Nausea and vomiting suspect secondary to acute cystitis and/or pyelonephritis. #4 Diabetes mellitus. #5 Gas esophageal reflux disease #6 Hyperlipidemia. #7 Hypertension. #8 Obstructive sleep apnea. #9 Left breast cancer status post left mastectomy. Plan: The patient is seen and evaluated by Dr. Lazaro. She is stable from the pulmonary standpoint. We'll follow him on as-needed basis. I, the cosigning physician, performed a history & physical examination of the patient. Lungs sounds are clear. Maintaining good O2 saturations in the 90s on room air. I discussed the assessment and plan of care with my nurse practitioner, Nayely Duenas. I attest to the above note as dictated by her.
--- NOTE | 2018-08-25 15:01 | P.PN ---
Subjective Progress Note Date: 08/25/18 Daja Herman is a 68-year-old female patient of Dr. Annelise Rose who presented to [facility] emergency room with a chief complaint of confusion and severe weakness, patient stated that she has been having nausea and vomiting for 3 days prior to admission she was evaluated in emergency room, temperature on presentation was 100.9 white blood count was elevated at 11.6 d-dimer was borderline elevated at 0.60 troponin was significantly elevated at 1.130 patient was started on IV heparin in the emergency room and cardiology consultation was requested, also in the emergency room patient had a computed tomography scan of the brain without contrast which was within normal limits, she also had a CT angiogram of the chest that revealed no evidence of pulmonary embolism however there was evidence of bilateral pulmonary infiltrates, she also underwent a computed tomography scan of the abdomen and pelvis that revealed no significant abnormality. Patient was started on IV antibiotic Zosyn and vancomycin in the emergency room for pulmonary infiltrates, she was kept on IV heparin per protocol and was admitted to telemetry floor cardiology consultation is requested. On 08/23/2018 patient is currently alert and oriented 3 resting comfortably in bed. Patient has remained afebrile. At this time patient denies chest pain or shortness of breath. Denies nausea vomiting or diarrhea. Patient denies any urinary burning or frequency. 08/24/2018 patient complaining of constipation today. Several days since last bowel movement. No further episodes of nausea or vomiting. She is also complaining of some difficulty with swallowing. So speech therapy will be placed on consult. Potassium is elevated at 5.3 will give Kayexalate anticipate that will help with constipation as well. Urine culture growing Klebsiella pneumoniae patient is a 40 on Zosyn. We'll discontinue vancomycin at this point. And will monitor. Cardiology has signed off. They felt patient 's elevated troponins were likely secondary to pneumonia and sepsis picture. Patient reports her cough is improving On 08/25/2018 patient's potassium improved to 3.9. Patient was evaluated by speech therapy for difficulty with swallowing. Recommend. Regular thin liquids. Scopolamine patch removed that was administered prior to hospitalization. This time patient denies chest pain or shortness of breath. Denies nausea vomiting or diarrhea. Denies any urinary burning or frequency. Objective - Vital Signs Vital signs: Vital Signs Temp 98.1 F 08/25/18 11:32 Pulse 75 01/09/19 13:28 Resp 18 08/25/18 11:32 BP 137/78 08/25/18 11:32 Pulse Ox 92 L 08/25/18 11:32 Intake & Output 08/24/18 08/25/18 08/25/18 18:59 06:59 18:59 Intake Total 100 1280 Balance 100 1280 Weight 90.2 kg Intake: IV 700 Piperacillin-Tazobactam 3 100 .375 gm In Sodium Chloride 0.9% 100 ml @ 25 mls/hr IVPB Q8H [facility] Rx#: [id number] Sodium Chloride 0.9% 1, 600 000 ml @ 75 mls/hr IV . [id number] [facility] Rx#:[id number] Intake, IV Titration 100 Amount Piperacillin-Tazobactam 3 100 .375 gm In Sodium Chloride 0.9% 100 ml @ 25 mls/hr IVPB Q8H [facility] Rx#: [id number] Oral 580 Other: Voiding Method Toilet Toilet Toilet Diaper Diaper Diaper # Voids 3 2 1 - Exam In general patient is alert and oriented in no apparent distress HEENT head normocephalic and atraumatic Neck is supple no JVD no goiter no lymphadenopathy Chest exam reveals a few scattered crackles no wheezing Cardiac exam reveals regular heart sounds S1 and S2 no gallops no murmurs Abdomen is soft nontender no organomegaly with normal bowel sounds Extremity exam reveals no edema no cyanosis or clubbing Neurological examination reveals generalized weakness without any focal abnormality - Labs CBC & Chem 7: 08/25/18 06:21 08/25/18 06:21 Labs: Abnormal Lab Results - Last 24 Hours (Table) 08/24/18 08/24/18 08/25/18 Range/Units 16:30 20:53 06:21 RDW (11.5-15.5) % Carbon Dioxide 33 H (22-30) mmol/L BUN 6 L (7-17) mg/dL POC Glucose (mg/dL) 103 H 108 H (75-99) mg/dL Total Protein 6.0 L (6.3-8.2) g/dL Albumin 3.0 L (3.5-5.0) g/dL 08/25/18 08/25/18 Range/Units 06:21 11:08 RDW 16.4 H (11.5-15.5) % Carbon Dioxide (22-30) mmol/L BUN (7-17) mg/dL POC Glucose (mg/dL) 235 H (75-99) mg/dL Total Protein (6.3-8.2) g/dL Albumin (3.5-5.0) g/dL Microbiology - Last 24 Hours (Table) 08/21/18 18:40 Blood Culture - Preliminary Blood No Growth after 72 hours Assessment and Plan Assessment: #1 elevated troponins: Possibly secondary to pneumonia and sepsis per cardiology. They've ordered echo and have signed off. 2-D echo completed showing EF between 55 and 60% #2 possible aspiration pneumonia versus basilar atelectasis: Followed by pulmonary service. Currently on IV Zosyn. Awaiting sputum culture. We'll discontinue vancomycin. Pulmonary services have signed off #3 nausea and vomiting for the last 3 days amylase and lipase are normal computed tomography scan of the abdomen and pelvis failed to revealed any acute abnormality nausea and vomiting likely related to UTI #4 underlying history of hypertension, well-controlled on current medications #5 underlying history of hyperlipidemia maintained on Crestor #6 underlying history of insulin-dependent diabetes mellitus maintained on Lantus 50 units subcu daily, Actos, metformin and invokana hemoglobin A1c on admission 8.1 #7 underlying history of hypothyroidism maintained on Synthroid 75 g daily #8 underlying history of chronic back pain with recent implantation of pain pump #9 difficulty with swallowing concerns for possible aspiration pneumonia. Speech pathology assessed. Scopolamine patch removed. Recommending Pured, regular diet and thin liquids #10 hyperkalemia: Potassium 5.3. We'll give Kayexalate 15 g 1. Repeat potassium 3.9 #11 constipation we will improve with the Kayexalate. Continue to monitor DVT prophylaxis heparin. GI prophylaxis Protonix I performed an examination of the patient and discussed their management with the Nurse Practitioner. I have reviewed the Nurse Practitioner's notes and agree with the documented findings and plan of care
[2018-08-25 16:24] LABS: Glucose,Whole Blood 179 mg/dL (75-99)
[2018-08-25] MEDS: [UNRECOGNIZED DRUG - OTHER] SUBLINGUAL SCH (20:02)
[2018-08-25 22:57] LABS: Glucose,Whole Blood 90 mg/dL (75-99)
[2018-08-26] MEDS: PIPERACILLIN-TAZOBACTAM 3.375 GM in SODIUM CHLORIDE 0.9% 100 ML IVPB SCH ×3 (02:16→16:42)
[2018-08-26] MEDS: INSULIN ASPART 100 UNIT/ML 1 ML 10 ML VIAL SQ SCH ×4 (06:26→22:12)
[2018-08-26 06:27] LABS: Glucose,Whole Blood 88 mg/dL (75-99)
[2018-08-26] MEDS: LEVOTHYROXINE 75 MCG TAB PO SCH (06:28)
[2018-08-26] MEDS: SODIUM CHLORIDE 0.9% 1,000 ML IV SCH ×2 (06:28→18:17)
[2018-08-26] MEDS: PANTOPRAZOLE 40 MG TABLET PO SCH ×2 (06:28→16:43)
[2018-08-26] MEDS: IPRATROPIUM-ALBUTEROL 3 ML NEB INHALATION SCH ×3 (07:04→20:12)
[2018-08-26 07:32] LABS: Anisocytosis Slight; Basophils % (A) 1 %; Eosinophils # (A) 0.4 k/uL (0-0.7); Eosinophils % (A) 7 %; HCT 37.8 % (34.0-46.0); HGB 11.4 gm/dL (11.4-16.0); Hypochromasia Slight; Lymphocytes # (A) 1.6 k/uL (1.0-4.8); Lymphocytes % (A) 25 %; MCH 26.9 pg (25.0-35.0); MCHC 30.2 g/dL (31.0-37.0); MCV 88.8 fL (80.0-100.0); Mean Platelet Volume 6.3; Monocytes # (A) 0.3 k/uL (0-1.0); Monocytes % (A) 5 %; Neutrophils # (A) 3.8 k/uL (1.3-7.7); Neutrophils % (A) 60 %; Platelet Count 233 k/uL (150-450); RBC 4.25 m/uL (3.80-5.40); RDW 16.5 % (11.5-15.5); WBC 6.4 k/uL (3.8-10.6)
[2018-08-26 07:44] LABS: ALT 26 U/L (9-52); AST 26 U/L (14-36); Albumin 3.2 g/dL (3.5-5.0); Alkaline Phosphatase 64 U/L (38-126); Anion Gap 6 mmol/L; Blood Urea Nitrogen 4 mg/dL (7-17); Calcium 8.8 mg/dL (8.4-10.2); Carbon Dioxide 31 mmol/L (22-30); Chloride 103 mmol/L (98-107); Glucose 88 mg/dL (74-99); Sodium 140 mmol/L (137-145); Total Bilirubin 0.6 mg/dL (0.2-1.3); Total Protein 6.3 g/dL (6.3-8.2)
[2018-08-26] MEDS: DULoxetine HCL 60 MG CAPSULE.DR PO SCH (10:23)
[2018-08-26] MEDS: ASPIRIN 325 MG TAB PO SCH (10:23)
[2018-08-26] MEDS: HEPARIN SODIUM,PORCINE 5,000 UNIT/ML 1 ML VIAL SQ SCH ×2 (10:23→20:58)
[2018-08-26] MEDS: MONTELUKAST 10 MG TAB PO SCH (10:23)
[2018-08-26] MEDS: DOCUSATE 100 MG CAP PO SCH ×2 (10:23→20:58)
[2018-08-26] MEDS: ATORVASTATIN 80 MG TAB PO SCH (10:23)
[2018-08-26] MEDS: VALSARTAN 40 MG TAB PO SCH (10:28)
[2018-08-26] MEDS: MYRBETRIQ 50MG PO SCH (10:28)
[2018-08-26] MEDS: INSULIN DETEMIR 100 UNIT/ML 10 ML VIAL SQ SCH (10:30)
[2018-08-26 11:41] LABS: Glucose,Whole Blood 104 mg/dL (75-99)
[2018-08-26] MEDS: NON-FORMULARY DRUG (Morphine Pain Pump 1 DOSE) INTRATHECA SCH (12:45)
[2018-08-26] MEDS ORDERED: NA PHOS,M-B/NA PHOS,DI-BA 133 ML ENEMA RECTAL ONE (13:58)
[2018-08-26] MEDS ORDERED: LACTULOSE 20 GM/30 ML CUP PO ONE (13:58)
--- NOTE | 2018-08-26 14:02 | P.PN ---
Subjective Progress Note Date: 08/26/18 Daja Herman is a 68-year-old female patient of Dr. Annelise Rose who presented to [facility] emergency room with a chief complaint of confusion and severe weakness, patient stated that she has been having nausea and vomiting for 3 days prior to admission she was evaluated in emergency room, temperature on presentation was 100.9 white blood count was elevated at 11.6 d-dimer was borderline elevated at 0.60 troponin was significantly elevated at 1.130 patient was started on IV heparin in the emergency room and cardiology consultation was requested, also in the emergency room patient had a computed tomography scan of the brain without contrast which was within normal limits, she also had a CT angiogram of the chest that revealed no evidence of pulmonary embolism however there was evidence of bilateral pulmonary infiltrates, she also underwent a computed tomography scan of the abdomen and pelvis that revealed no significant abnormality. Patient was started on IV antibiotic Zosyn and vancomycin in the emergency room for pulmonary infiltrates, she was kept on IV heparin per protocol and was admitted to telemetry floor cardiology consultation is requested. On 08/23/2018 patient is currently alert and oriented 3 resting comfortably in bed. Patient has remained afebrile. At this time patient denies chest pain or shortness of breath. Denies nausea vomiting or diarrhea. Patient denies any urinary burning or frequency. 08/24/2018 patient complaining of constipation today. Several days since last bowel movement. No further episodes of nausea or vomiting. She is also complaining of some difficulty with swallowing. So speech therapy will be placed on consult. Potassium is elevated at 5.3 will give Kayexalate anticipate that will help with constipation as well. Urine culture growing Klebsiella pneumoniae patient is a 40 on Zosyn. We'll discontinue vancomycin at this point. And will monitor. Cardiology has signed off. They felt patient 's elevated troponins were likely secondary to pneumonia and sepsis picture. Patient reports her cough is improving On 08/25/2018 patient's potassium improved to 3.9. Patient was evaluated by speech therapy for difficulty with swallowing. Recommend. Regular thin liquids. Scopolamine patch removed that was administered prior to hospitalization. This time patient denies chest pain or shortness of breath. Denies nausea vomiting or diarrhea. Denies any urinary burning or frequency. 08/26/2018 patient is still complaining of difficulty swallowing and reporting that food feels like it is getting stuck. She was seen by speech therapy yesterday. Scopolamine patch discontinued and she was placed on thin liquids. We'll have speech therapy come back through for a modified barium swallow. Also consult GI service possibly needing EGD. Patient reports improvement in her cough. Denies any burning with urination. Denies any chest pain or shortness of breath. She is still complaining of constipation further several days. Will give enema and lactulose Objective - Vital Signs Vital signs: Vital Signs Temp 98.8 F 08/26/18 08:15 Pulse 70 08/26/18 12:22 Resp 18 08/26/18 08:15 BP 137/76 08/26/18 08:15 Pulse Ox 91 L 08/26/18 08:15 Intake & Output 08/25/18 08/26/18 08/26/18 18:59 06:59 18:59 Intake Total 1280 222 Balance 1280 222 Weight 89.4 kg Intake: IV 700 Piperacillin-Tazobactam 3 100 .375 gm In Sodium Chloride 0.9% 100 ml @ 25 mls/hr IVPB Q8H [facility] Rx#: [id number] Sodium Chloride 0.9% 1, 600 000 ml @ 75 mls/hr IV . [id number] [facility] Rx#:[id number] Oral 580 222 Other: Voiding Method Toilet Toilet Toilet Diaper Diaper Diaper # Voids 1 1 2 - Exam Head normocephalic Neck supple Lungs clear to auscultation bilaterally no wheezing or crackles Heart regular rate and rhythm S1-S2, no rub or gallop Abdomen is soft nontender nondistended positive bowel sounds no hepatosplenomegaly Extremities no edema Neuro alert and orientated to 3 - Labs CBC & Chem 7: 08/26/18 06:31 08/26/18 06:31 Labs: Abnormal Lab Results - Last 24 Hours (Table) 08/25/18 08/26/18 08/26/18 Range/Units 16:21 06:31 06:31 MCHC 30.2 L (31.0-37.0) g/dL RDW 16.5 H (11.5-15.5) % Carbon Dioxide 31 H (22-30) mmol/L BUN 4 L (7-17) mg/dL POC Glucose (mg/dL) 179 H (75-99) mg/dL Albumin 3.2 L (3.5-5.0) g/dL 08/26/18 Range/Units 11:40 MCHC (31.0-37.0) g/dL RDW (11.5-15.5) % Carbon Dioxide (22-30) mmol/L BUN (7-17) mg/dL POC Glucose (mg/dL) 104 H (75-99) mg/dL Albumin (3.5-5.0) g/dL Microbiology - Last 24 Hours (Table) 08/21/18 18:40 Blood Culture - Preliminary Blood No Growth after 96 hours Assessment and Plan Assessment: #1 elevated troponins: Possibly secondary to pneumonia and sepsis per cardiology. 2-D echo showing an EF of 55-60%. Cardiology has signed off #2 possible aspiration pneumonia versus basilar atelectasis: Currently on IV Zosyn. Awaiting sputum culture. We'll discontinue vancomycin. Pulmonary has signed off #3 nausea and vomiting for the last 3 days amylase and lipase are normal computed tomography scan of the abdomen and pelvis failed to revealed any acute abnormality nausea and vomiting likely related to UTI #4 underlying history of hypertension, well-controlled on current medications #5 underlying history of hyperlipidemia maintained on Crestor #6 underlying history of insulin-dependent diabetes mellitus maintained on Lantus 50 units subcu daily, Actos, metformin and invokana hemoglobin A1c on admission 8.1 #7 underlying history of hypothyroidism maintained on Synthroid 75 g daily #8 underlying history of chronic back pain with recent implantation of pain pump #9 difficulty with swallowing concerns for possible aspiration pneumonia. Seen by speech therapy. Scopolamine patch removed. The recommended a regular diet with thin liquids. Patient reports that she still feels food is getting stuck. We'll check a modified barium swallow. Also consult GI service #10 hyperkalemia: Resolved with Kayexalate #11 constipation : Give lactulose, stool softener and Fleet enema DVT prophylaxis heparin. GI prophylaxis Protonix I performed an examination of the patient and discussed their management with the physician Medical Oncology Physician. I have reviewed the Physician Medical Oncology Physician's notes and agree with the documented findings and plan of care
--- NOTE | 2018-08-26 15:34 | FL ---
EXAMINATION TYPE: FL barium swallow w video DATE OF EXAM: 08/26/2018 MODIFIED SWALLOW / DEGLUTITION STUDY CLINICAL HISTORY: Dysphagia. TECHNIQUE: Deglutition study is performed utilizing thin liquid barium, honey and nectar thick liqui d barium, barium thick applesauce, and barium coated cracker. A total of 2 minutes 18 seconds of fluo roscopic time was utilized during procedure. Serial spot images are saved. COMPARISON: None. FINDINGS: The oral and pharyngeal phases show mild delay in initiation with satisfactory propagation with all modalities tested. Satisfactory mastication is seen with solid modalities tested. There is no evidence of penetration or aspiration with any modality tested. No significant pharyngeal residue was appreciated. Note is made of anterior fusion plate from C4 through at least C6 level. There are large anterior osteophytes in the upper cervical spine indenting the posterior aspect of the esophagu s may be accounting for patient's symptoms. IMPRESSION: No penetration or aspiration observed. Please refer to speech therapist notes for furthe r details if necessary.
[2018-08-26 17:06] LABS: Glucose,Whole Blood 153 mg/dL (75-99)
[2018-08-26] MEDS: ACETAMINOPHEN TAB 325 MG TAB PO PRN (18:15)
[2018-08-26 20:27] LABS: Glucose,Whole Blood 102 mg/dL (75-99)
[2018-08-26] MEDS: [UNRECOGNIZED DRUG - OTHER] SUBLINGUAL SCH (20:56)
[2018-08-27] MEDS: PIPERACILLIN-TAZOBACTAM 3.375 GM in SODIUM CHLORIDE 0.9% 100 ML IVPB SCH ×2 (00:28→10:30)
[2018-08-27 05:38] LABS: Glucose,Whole Blood 74 mg/dL (75-99)
[2018-08-27] MEDS: INSULIN ASPART 100 UNIT/ML 1 ML 10 ML VIAL SQ SCH ×2 (06:05→12:56)
[2018-08-27] MEDS: LEVOTHYROXINE 75 MCG TAB PO SCH (06:25)
[2018-08-27] MEDS: PANTOPRAZOLE 40 MG TABLET PO SCH (06:25)
[2018-08-27 06:27] LABS: Anisocytosis Slight; Basophils % (A) 0 %; Eosinophils # (A) 0.5 k/uL (0-0.7); Eosinophils % (A) 7 %; HCT 38.3 % (34.0-46.0); HGB 11.8 gm/dL (11.4-16.0); Hypochromasia Slight; Lymphocytes # (A) 1.6 k/uL (1.0-4.8); Lymphocytes % (A) 23 %; MCH 27.3 pg (25.0-35.0); MCHC 30.9 g/dL (31.0-37.0); MCV 88.3 fL (80.0-100.0); Monocytes # (A) 0.4 k/uL (0-1.0); Monocytes % (A) 5 %; Neutrophils # (A) 4.3 k/uL (1.3-7.7); Neutrophils % (A) 62 %; Platelet Count 238 k/uL (150-450); RBC 4.34 m/uL (3.80-5.40); RDW 16.5 % (11.5-15.5)
[2018-08-27 06:48] LABS: ALT 29 U/L (9-52); AST 25 U/L (14-36); Albumin 3.3 g/dL (3.5-5.0); Alkaline Phosphatase 67 U/L (38-126); Anion Gap 8 mmol/L; Blood Urea Nitrogen 4 mg/dL (7-17); Calcium 8.8 mg/dL (8.4-10.2); Carbon Dioxide 31 mmol/L (22-30); Chloride 103 mmol/L (98-107); Glucose 74 mg/dL (74-99); Potassium 3.9 mmol/L (3.5-5.1); Sodium 142 mmol/L (137-145); Total Bilirubin 0.6 mg/dL (0.2-1.3); Total Protein 6.4 g/dL (6.3-8.2)
[2018-08-27] MEDS: IPRATROPIUM-ALBUTEROL 3 ML NEB INHALATION SCH ×2 (07:02→12:20)
[2018-08-27] MEDS: DULoxetine HCL 60 MG CAPSULE.DR PO SCH (09:26)
[2018-08-27] MEDS: MONTELUKAST 10 MG TAB PO SCH (09:26)
[2018-08-27] MEDS: HEPARIN SODIUM,PORCINE 5,000 UNIT/ML 1 ML VIAL SQ SCH (09:26)
[2018-08-27] MEDS: ATORVASTATIN 80 MG TAB PO SCH (09:26)
[2018-08-27] MEDS: ASPIRIN 325 MG TAB PO SCH (09:26)
[2018-08-27] MEDS: DOCUSATE 100 MG CAP PO SCH (09:26)
[2018-08-27] MEDS: VALSARTAN 40 MG TAB PO SCH (09:26)
[2018-08-27] MEDS: MYRBETRIQ 50MG PO SCH (09:27)
[2018-08-27] MEDS: INSULIN DETEMIR 100 UNIT/ML 10 ML VIAL SQ SCH (09:40)
[2018-08-27 11:41] LABS: Glucose,Whole Blood 133 mg/dL (75-99)
[2018-08-27 12:15] VITALS: BP 137/87; RESP 20; TEMP 98.2
--- NOTE | 2018-08-27 12:17 | P.CONS ---
History of Present Illness - Reason for Consult Consult date: 08/27/18 Dysphagia Requesting physician: Lexie Craven - Chief Complaint Altered mental status nausea - History of Present Illness 68-year-old female admitted 08/21/2018 with altered mental status nausea and nonbloody emesis aspiration pneumonia. Consult requested for dysphagia. Difficulty swallowing non bloody emesis few days prior to admission. No weight loss. Describes dysphagia as a sensation of something in the back of her throat globus type sensation. No bleeding. CT chest no PE. Cardiomegaly. CT abdomen and pelvis no evidence of bowel obstruction. No evidence of free air. No acute abnormality seen within the abdomen. Modified barium swallow no penetration or aspiration. Speech pathologist evaluated patient swallow was initiated no timely fashion and the findings cleared well with no evidence of problems with oral or pharyngeal motility. 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 Speech pathologist recommended a regular diet with thin liquids with universal reflux precautions. No further workup at this time felt to be warranted. No recent EGD; several years ago. Presently tolerating diet without dysphagia N/ V. HGB 11.8. WBC 7.8. Review of Systems Constitutional: Denies fever, chills, sweats, weight gain, or loss. HEENT: Negative for migraines, blurred vision or loss, earaches, drainage, tinnitus, oral mucosal lesions, dysphagia, or odynophagia. CARDIAC: Negative for chest pain, arrhythmias, or palpitation. RESPIRATORY: Negative for shortness of breath, hemoptysis, cough, or sputum production. GI: See HPI for pertinent findings. : Negative for hematuria, urgency, frequency, polyuria, or dysuria. GYNc: Negative vaginal discharge. MUSCULOSKELETAL: Negative for muscle aches, swelling, arthritis, and arthralgias. NEUROLOGIC: Negative for stroke or TIA. ENDOCRINE: Negative for thyroid problems. SKIN: Negative for rash or itching. PSYCHIATRIC: Negative history for depression and anxiety Past Medical History Past Medical History: Cancer, Diabetes Mellitus, GERD/Reflux, Hyperlipidemia, Hypertension, Sleep Apnea/CPAP/BIPAP Additional Past Medical History / Comment(s): Lt Breast CA. HX IRREG HEART X1. USES CPAP. HX COLITIS. HAD BLACK STOOLS 4 WEEKS AGO, herniated disc in back History of Any Multi-Drug Resistant Organisms: MRSA Year Discovered:: 04/02/17 MDRO Source:: URINE Past Surgical History: Back Surgery, Breast Surgery, Cholecystectomy, Hysterectomy Additional Past Surgical History / Comment(s): Lt Mastectomy W/ RECONSTRUCTION; RT BREAST IMPLANT. SINUS SURG X3., colonoscopy, pain pump implant Past Anesthesia/Blood Transfusion Reactions: Previous Problems w/ Anesthesia Additional Past Anesthesia/Blood Transfusion Reaction / Comm: HX OF DAMAGE TO VOCAL CORDS POST-OP BACK SURGERY Past Psychological History: No Psychological Hx Reported Smoking Status: Never smoker Past Alcohol Use History: None Reported Past Drug Use History: None Reported - Past Family History Father Sister(s) Family Medical History: Cancer Brother(s) Family Medical History: Cancer Additional Family Medical History / Comment(s): ANEURYSM Medications and Allergies Home Medications Medication Instructions Recorded Confirmed Type Aspirin EC [Ecotrin Low Dose] 81 mg PO DAILY 04/22/16 08/21/18 History Esomeprazole Magnesium [NexIUM] 40 mg PO BID 04/22/16 08/21/18 History Liraglutide [Victoza 2-Dread] 1.8 mg SQ DAILY 04/22/16 08/21/18 History Methocarbamol [Robaxin] 500 mg PO BID PRN 04/22/16 08/21/18 History traMADol HCL [Ultram] 50 mg PO DAILY PRN 04/22/16 08/21/18 History Rosuvastatin Calcium [Crestor] 40 mg PO DAILY 06/02/16 08/21/18 History Insulin Glargine [Lantus] 50 unit SQ DAILY 11/01/17 08/21/18 History Levothyroxine Sodium [Synthroid] 75 mcg PO DAILY 11/01/17 08/21/18 History Canagliflozin [Invokana] 100 mg PO DAILY 06/21/18 08/21/18 History Celecoxib [CeleBREX] 200 mg PO DAILY 06/21/18 08/21/18 History DULoxetine HCL [Cymbalta] 60 mg PO DAILY 06/21/18 08/21/18 History Ibuprofen [Motrin Ib] 200 mg PO Q6H PRN 06/21/18 08/21/18 History Mirabegron [Myrbetriq] 50 mg PO DAILY 06/21/18 08/21/18 History Montelukast [Singulair] 10 mg PO DAILY 06/21/18 08/21/18 History Valsartan [Diovan] 40 mg PO DAILY 06/21/18 08/21/18 History Morphine Pain Pump 1 dose INTRATHECA DIRECTED 08/20/18 08/21/18 History Nocdurna 27.7 mcg SUBLINGUAL HS 08/20/18 08/21/18 History metFORMIN HCL 1,000 mg PO BID 08/20/18 08/21/18 History Allergies Allergy/AdvReac Type Severity Reaction Status Date / Time neomycin Allergy Itching Verified 08/21/18 18:17 Sulfa (Sulfonamide Allergy Dyspnea Verified 08/21/18 18:17 Antibiotics) sulfamethoxazole Allergy Dyspnea Verified 08/21/18 18:17 [From ] trimethoprim [From ] Allergy Dyspnea Verified 08/21/18 18:17 morphine AdvReac Nausea & Verified 08/21/18 18:17 Vomiting Physical Exam Vitals: Vital Signs Temp Pulse Pulse Resp BP Pulse Ox 08/27/18 08:20 98.3 F 83 16 135/77 95 08/27/18 07:11 80 08/27/18 07:02 82 08/27/18 04:00 98.3 F 75 16 150/96 95 08/26/18 23:49 74 16 140/75 96 08/26/18 20:14 81 94 L 08/26/18 20:00 98 F 71 16 140/76 93 L 08/26/18 16:00 98 F 73 18 142/80 90 L 08/26/18 12:22 70 08/26/18 12:12 74 Intake and Output 08/26/18 08/27/18 08/27/18 22:59 06:59 14:59 Intake Total 240 480 Balance 240 480 Intake: Oral 240 480 Other: Voiding Method Toilet Toilet Diaper Diaper # Voids 1 1 # Bowel Movements 1 Weight 88 kg General appearance: The patient is alert, oriented, in no acute distress. HET: Head is normocephalic and atraumatic. Pupils are equal and reactive. Oropharynx is clear without lesions. Neck: Supple without lymphadenopathy. Trachea midline. Heart: S1 S2. Regular rate and rhythm. Lungs: No crackles or wheezes are heard. Abdomen: Soft, nontender, nondistended with bowel sounds. No peritoneal signs. No palpable organomegaly or masses. Extremities: Normal skin color and turgor. No cyanosis, rash, ulceration, clubbing, or edema. Radial and pedal pulses are 2/4 bilaterally. Neurological: No focal deficits. Strength and sensation are grossly intact. Results CBC & Chem 7: 08/27/18 06:05 08/27/18 06:05 Labs: Abnormal Lab Results - Last 24 Hours (Table) 08/26/18 08/26/18 08/26/18 Range/Units 11:40 17:00 20:26 MCHC (31.0-37.0) g/dL RDW (11.5-15.5) % Carbon Dioxide (22-30) mmol/L BUN (7-17) mg/dL POC Glucose (mg/dL) 104 H 153 H 102 H (75-99) mg/dL Albumin (3.5-5.0) g/dL 08/27/18 08/27/18 08/27/18 Range/Units 05:37 06:05 06:05 MCHC 30.9 L (31.0-37.0) g/dL RDW 16.5 H (11.5-15.5) % Carbon Dioxide 31 H (22-30) mmol/L BUN 4 L (7-17) mg/dL POC Glucose (mg/dL) 74 L (75-99) mg/dL Albumin 3.3 L (3.5-5.0) g/dL Microbiology - Last 24 Hours (Table) 08/21/18 18:40 Blood Culture - Preliminary Blood No Growth after [address] scan - abdomen: report reviewed (Dr. Snow) CT scan - chest: report reviewed (Dr. Snow) Assessment and Plan (1) Dysphagia Narrative/Plan: Globus sensation status post [facility] [place] evaluation no evidence of aspiration or obstruction. Current Visit: Yes Status: Acute Code(s): R13.10 - DYSPHAGIA, UNSPECIFIED SNOMED Code(s): 11108578 (2) Pneumonia Current Visit: Yes Status: Acute Code(s): J18.9 - PNEUMONIA, UNSPECIFIED ORGANISM SNOMED Code(s): 895768464 Plan: 1. Continue recommended diet. 2. Outpatient EGD advised after pneumonia has resolved. 3. Protonix 40 mg daily. 4. RTO 2-3 weeks for reevaluation. Thank you for this kind referral and the opportunity to participate in the care of your patient. This consultation was discussed with Dr. Snow. The impression and plan of care have been directed as dictated.
[2018-08-27] MEDS: NON-FORMULARY DRUG (Morphine Pain Pump 1 DOSE) INTRATHECA SCH (12:19)
[2018-08-27 12:30] VITALS: PULSE 88
[2018-08-27 13:26] VITALS: BMI 34.3
--- NOTE | 2018-08-27 13:52 | P.DS ---
Providers Date of admission: 08/22/18 00:39 Expected date of discharge: 08/27/18 Attending physician: Lexie Craven Consults: 08/22/18 00:43 Consult Physician Urgent Consulting Provider: Chaz Yeager Consult Reason/Comments: NSTEMI Do you want consulting provider notified?: Already Contacted 08/22/18 12:29 Consult Physician Routine Consulting Provider: Anjana Xiao Consult Reason/Comments: pneumonia Do you want consulting provider notified?: Yes 08/26/18 13:48 Consult Physician Routine Consulting Provider: Eliceo Snow Consult Reason/Comments: difficulty with swallowing Do you want consulting provider notified?: Yes Primary care physician: Annelise Rose Hospital Course: Discharge diagnosis #1 elevated troponins: Possibly secondary to pneumonia and sepsis per cardiology. 2-D echo showing an EF of 55-60%. Cardiology has signed off #2 possible aspiration pneumonia versus basilar atelectasis: Patient will continue Augmentin for 10 more days. She will follow-up with pulmonary service outpatient #3 nausea and vomiting for the last 3 days amylase and lipase are normal computed tomography scan of the abdomen and pelvis failed to revealed any acute abnormality nausea and vomiting likely related to UTI #4 underlying history of hypertension, well-controlled on current medications #5 underlying history of hyperlipidemia maintained on Crestor #6 underlying history of insulin-dependent diabetes mellitus maintained on Lantus 50 units subcu daily, Actos, metformin and invokana hemoglobin A1c on admission 8.1 #7 underlying history of hypothyroidism maintained on Synthroid 75 g daily #8 underlying history of chronic back pain with recent implantation of pain pump #9 dysphagia globus sensation status post MBS possibly related to a cervical osteophyte. There is no evidence of aspiration or obstruction. Patient currently tolerating diet. Seen also by GI service the recommending EGD outpatient. We'll continue patient's Nexium. Patient is to follow up with GI service in 2-3 weeks for EGD. difficulty with swallowing concerns for possible aspiration pneumonia. Seen by speech therapy. Scopolamine patch removed. They recommended a regular diet with thin liquids. #10 hyperkalemia: Resolved with Kayexalate #11 constipation : Resolved with lactulose and enema #12 UTI with urine culture growing Klebsiella pneumoniae continue Augmentin for 10 more days Hospital course Daja Herman is a 68-year-old female patient of Dr. Annelise Rose who presented to [facility] emergency room with a chief complaint of confusion and severe weakness, patient stated that she has been having nausea and vomiting for 3 days prior to admission she was evaluated in emergency room, temperature on presentation was 100.9 white blood count was elevated at 11.6 d-dimer was borderline elevated at 0.60 troponin was significantly elevated at 1.130 patient was started on IV heparin in the emergency room and cardiology consultation was requested, also in the emergency room patient had a computed tomography scan of the brain without contrast which was within normal limits, she also had a CT angiogram of the chest that revealed no evidence of pulmonary embolism however there was evidence of bilateral pulmonary infiltrates, she also underwent a computed tomography scan of the abdomen and pelvis that revealed no significant abnormality. Patient was started on IV antibiotic Zosyn and vancomycin in the emergency room for pulmonary infiltrates, she was kept on IV heparin per protocol and was admitted to telemetry floor cardiology consultation is requested. On 08/23/2018 patient is currently alert and oriented 3 resting comfortably in bed. Patient has remained afebrile. At this time patient denies chest pain or shortness of breath. Denies nausea vomiting or diarrhea. Patient denies any urinary burning or frequency. 08/24/2018 patient complaining of constipation today. Several days since last bowel movement. No further episodes of nausea or vomiting. She is also complaining of some difficulty with swallowing. So speech therapy will be placed on consult. Potassium is elevated at 5.3 will give Kayexalate anticipate that will help with constipation as well. Urine culture growing Klebsiella pneumoniae patient is a 40 on Zosyn. We'll discontinue vancomycin at this point. And will monitor. Cardiology has signed off. They felt patient 's elevated troponins were likely secondary to pneumonia and sepsis picture. Patient reports her cough is improving On 08/25/2018 patient's potassium improved to 3.9. Patient was evaluated by speech therapy for difficulty with swallowing. Recommend. Regular thin liquids. Scopolamine patch removed that was administered prior to hospitalization. This time patient denies chest pain or shortness of breath. Denies nausea vomiting or diarrhea. Denies any urinary burning or frequency. 08/26/2018 patient is still complaining of difficulty swallowing and reporting that food feels like it is getting stuck. She was seen by speech therapy yesterday. Scopolamine patch discontinued and she was placed on thin liquids. We'll have speech therapy come back through for a modified barium swallow. Also consult GI service possibly needing EGD. Patient reports improvement in her cough. Denies any burning with urination. Denies any chest pain or shortness of breath. She is still complaining of constipation further several days. Will give enema and lactulose 08/27/2018 patient is medically stable for discharge. Patient's has had improvement in her pneumonia and UTI. She'll continue Augmentin for 10 more days. Patient is to follow-up with cardiology and pulmonary service in 1 week. Patient also seen by GI service regarding her dysphagia. There is no evidence of aspiration on the MBS. However they did note evidence of a cervical osteophyte that might be causing her dysphagia. Patient will also follow-up with GI service in 2-3 weeks for an EGD to be completed outpatient when her pneumonia has resolved. Also recommended that patient continues her MiraLAX and Colace she takes at home to help with her constipation that she should take it regularly to prevent constipation. Patient has been cleared by all consulting physicians. She is medical stable for discharge and will continue Augmentin for 10 more days to complete treatment of her pneumonia and UTI. Please refer to chart for any further details. I performed an examination of the patient and discussed their management with the physician [employer]. I have reviewed the Physician [employer]'s notes and agree with the documented findings and plan of care Patient Condition at Discharge: Stable Plan - Discharge Summary Discharge Rx Participant: No New Discharge Prescriptions: New Amoxicillin/Potassium Clav [Augmentin 875-125 Tablet] 1 tab PO Q12HR #20 tab Continue Aspirin EC [Ecotrin Low Dose] 81 mg PO DAILY Esomeprazole Magnesium [NexIUM] 40 mg PO BID Liraglutide [Victoza 2-Dread] 1.8 mg SQ DAILY Methocarbamol [Robaxin] 500 mg PO BID PRN PRN Reason: Pain traMADol HCL [Ultram] 50 mg PO DAILY PRN PRN Reason: Pain Rosuvastatin Calcium [Crestor] 40 mg PO DAILY Levothyroxine Sodium [Synthroid] 75 mcg PO DAILY Insulin Glargine [Lantus] 50 unit SQ DAILY Valsartan [Diovan] 40 mg PO DAILY Celecoxib [CeleBREX] 200 mg PO DAILY Canagliflozin [Invokana] 100 mg PO DAILY Montelukast [Singulair] 10 mg PO DAILY Mirabegron [Myrbetriq] 50 mg PO DAILY DULoxetine HCL [Cymbalta] 60 mg PO DAILY Nocdurna 27.7 mcg SUBLINGUAL HS metFORMIN HCL 1,000 mg PO BID Morphine Pain Pump 1 dose INTRATHECA DIRECTED Discontinued Ibuprofen [Motrin Ib] 200 mg PO Q6H PRN PRN Reason: Pain Discharge Medication List Aspirin EC [Ecotrin Low Dose] 81 mg PO DAILY 04/22/16 [History] Esomeprazole Magnesium [NexIUM] 40 mg PO BID 04/22/16 [History] Liraglutide [Victoza 2-Dread] 1.8 mg SQ DAILY 04/22/16 [History] Methocarbamol [Robaxin] 500 mg PO BID PRN 04/22/16 [History] traMADol HCL [Ultram] 50 mg PO DAILY PRN 04/22/16 [History] Rosuvastatin Calcium [Crestor] 40 mg PO DAILY 06/02/16 [History] Insulin Glargine [Lantus] 50 unit SQ DAILY 11/01/17 [History] Levothyroxine Sodium [Synthroid] 75 mcg PO DAILY 11/01/17 [History] Canagliflozin [Invokana] 100 mg PO DAILY 06/21/18 [History] Celecoxib [CeleBREX] 200 mg PO DAILY 06/21/18 [History] DULoxetine HCL [Cymbalta] 60 mg PO DAILY 06/21/18 [History] Mirabegron [Myrbetriq] 50 mg PO DAILY 06/21/18 [History] Montelukast [Singulair] 10 mg PO DAILY 06/21/18 [History] Valsartan [Diovan] 40 mg PO DAILY 06/21/18 [History] Morphine Pain Pump 1 dose INTRATHECA DIRECTED 08/20/18 [History] Nocdurna 27.7 mcg SUBLINGUAL HS 08/20/18 [History] metFORMIN HCL 1,000 mg PO BID 08/20/18 [History] Amoxicillin/Potassium Clav [Augmentin 875-125 Tablet] 1 tab PO Q12HR #20 tab 07/05 [Rx] Follow up Appointment(s)/Referral(s): [facility] [Provider Group] - 1 Week Gunnar Lazaro DO [Doctor of Osteopathic Medicine] - 1 Week Annelise Rose DO [Primary Care Provider] - 08/30/18 2:00 pm (Thursday at the [place] office with [place]) Eliceo Snow MD [STAFF PHYSICIAN] - 3 Weeks Patient Instructions/Handouts: Urinary Tract Infection in Women (DC), Pneumonia (DC) Activity/Diet/Wound Care/Special Instructions: Diet: Diabetic Activity: as tolerated Discharge Disposition: HOME WITH HOME HEALTH SERVICES
== END 2018-08-27 16:40 | disposition home health service (06) | DRG 871 ==
LOC: EC 17:52 → 3SCARD 08-22 00:39
PROVIDERS: ADMIT Internal Medicine; ATTEND Internal Medicine
DX: A41.9 Sepsis, unspecified organism (principal); J69.0 Pneumonitis due to inhalation of food and vomit; N39.0 Urinary tract infection, site not specified; J98.11 Atelectasis; B96.1 Klebsiella pneumoniae [K. pneumoniae] as the cause of diseases classified elsewhere; E03.9 Hypothyroidism, unspecified; E11.9 Type 2 diabetes mellitus without complications; E78.5 Hyperlipidemia, unspecified; E87.5 Hyperkalemia; G47.33 Obstructive sleep apnea (adult) (pediatric); I10 Essential (primary) hypertension; K21.9 Gastro-esophageal reflux disease without esophagitis; K59.00 Constipation, unspecified; M25.78 Osteophyte, vertebrae; R09.02 Hypoxemia; R13.10 Dysphagia, unspecified; G89.29 Other chronic pain; M54.9 Dorsalgia, unspecified; R11.2 Nausea with vomiting, unspecified; R77.9 Abnormality of plasma protein, unspecified; Z79.4 Long term (current) use of insulin; Z79.82 Long term (current) use of aspirin; Z79.890 Hormone replacement therapy; Z79.899 Other long term (current) drug therapy; Z88.1 Allergy status to other antibiotic agents; Z88.5 Allergy status to narcotic agent; Z88.2 Allergy status to sulfonamides; Z85.3 Personal history of malignant neoplasm of breast; Z98.82 Breast implant status; Z86.14 Personal history of Methicillin resistant Staphylococcus aureus infection; Z90.12 Acquired absence of left breast and nipple; Z90.710 Acquired absence of both cervix and uterus; Z90.49 Acquired absence of other specified parts of digestive tract; Z80.9 Family history of malignant neoplasm, unspecified; Z82.49 Family history of ischemic heart disease and other diseases of the circulatory system
CPT/HCPCS: 36415; 51701; 70450; 71046; 71275; 74177; 74230; 80048; 80053; 80061; 80202; 81001; 82550; 82553; 83036; 83605; 83690; 83735; 83880; 84145; 84484; 85025; 85027; 85379; 85610; 85730; 87040; 87077; 87086; 87186; 87502; 93005; 93306; 94640; 94760; 96361; 96365; 96366; 96368; 96376; 99285

== ENCOUNTER 2018-09-03 02:36 | Observation (INO) | payer MEDICARE, OTHER ==
--- NOTE | 2018-09-03 04:04 | XR ---
EXAMINATION TYPE: XR chest 1V portable DATE OF EXAM: 09/03/2018 COMPARISON: 08/21/2018 HISTORY: Weakness TECHNIQUE: Single frontal view of the chest is obtained. FINDINGS: There is no heart failure nor confluent pneumonic infiltrate. Costophrenic angles are shakira r. Bony thorax is intact. IMPRESSION: No active cardiopulmonary disease. No change.
[2018-09-03 04:07] LABS: Anisocytosis Slight; Basophils # (A) 0.1 k/uL (0-0.2); Basophils % (A) 0 %; Eosinophils # (A) 0.2 k/uL (0-0.7); Eosinophils % (A) 2 %; HCT 48.5 % (34.0-46.0); Lymphocytes # (A) 1.8 k/uL (1.0-4.8); Lymphocytes % (A) 15 %; MCH 27.5 pg (25.0-35.0); MCHC 31.2 g/dL (31.0-37.0); MCV 88.1 fL (80.0-100.0); Mean Platelet Volume 6.9; Monocytes # (A) 0.8 k/uL (0-1.0); Monocytes % (A) 7 %; Neutrophils % (A) 75 %; Platelet Count 264 k/uL (150-450); RBC 5.51 m/uL (3.80-5.40); RDW 16.5 % (11.5-15.5)
[2018-09-03 04:15] LABS: INR 1.1 (<1.2); Partial Thromboplastin Time 26.9 sec (22.0-30.0); Prothrombin Time 11.5 sec (9.0-12.0)
[2018-09-03] MEDS ORDERED: KETOROLAC 30 MG/ML 1 ML VIAL IVP STA (04:16)
[2018-09-03 04:18] LABS: Albumin 4.2 g/dL (3.5-5.0); Calcium 9.7 mg/dL (8.4-10.2); Magnesium 1.8 mg/dL (1.6-2.3); Potassium 4.2 mmol/L (3.5-5.1); Total Bilirubin 1.1 mg/dL (0.2-1.3); Total Protein 8.1 g/dL (6.3-8.2)
[2018-09-03 04:20] LABS: HGB 15.1 gm/dL (11.4-16.0)
[2018-09-03 04:21] LABS: Creatine Kinase <20 U/L (30-135)
[2018-09-03 04:35] LABS: Creatine Kinase MB 0.3 ng/mL (0.0-2.4); Troponin I <0.012 ng/mL (0.000-0.034)
--- NOTE | 2018-09-03 05:06 | ED ---
General Adult HPI - General Chief complaint: Weakness Stated complaint: Back pain Time Seen by Provider: 09/03/18 02:54 Source: patient Mode of arrival: wheelchair Limitations: no limitations - History of Present Illness Initial comments: This patient is 68-year-old woman with history of chronic low back pain. She presents to be evaluated for low back pain that radiates to her left leg. She states she has also been having some nausea and vomiting. Patient's also states that she appears to be more somnolent than usual and at times confused or disoriented. He is wondering whether she is having a reaction to the morphine she receives through the pain pump she has for back pain. Patient denies fever or chills. No coughing, chest pain or dyspnea. She has not noted change in urination or bowel movements. No abdominal pain. She denies focal weakness but does have some generalized weakness Onset/Timin -: days(s) Location: back Radiation: other (Left lower extremity) Quality: aching Consistency: constant Improves with: none Worsens with: none Associated Symptoms: nausea/vomiting Treatments Prior to Arrival: other - Related Data Home Medications Medication Instructions Recorded Confirmed Aspirin EC [Ecotrin Low Dose] 81 mg PO DAILY 04/22/16 09/03/18 Esomeprazole Magnesium [NexIUM] 40 mg PO BID 04/22/16 09/03/18 Liraglutide [Victoza 2-Dread] 1.8 mg SQ DAILY 04/22/16 09/03/18 Methocarbamol [Robaxin] 500 mg PO BID PRN 04/22/16 09/03/18 traMADol HCL [Ultram] 50 mg PO DAILY PRN 04/22/16 09/03/18 Rosuvastatin Calcium [Crestor] 40 mg PO DAILY 06/02/16 09/03/18 Insulin Glargine [Lantus] 50 unit SQ DAILY 11/01/17 09/03/18 Levothyroxine Sodium [Synthroid] 75 mcg PO DAILY 11/01/17 09/03/18 Canagliflozin [Invokana] 100 mg PO DAILY 06/21/18 09/03/18 Celecoxib [CeleBREX] 200 mg PO DAILY 06/21/18 09/03/18 DULoxetine HCL [Cymbalta] 60 mg PO DAILY 06/21/18 09/03/18 Mirabegron [Myrbetriq] 50 mg PO DAILY 06/21/18 09/03/18 Montelukast [Singulair] 10 mg PO DAILY 06/21/18 09/03/18 Valsartan [Diovan] 40 mg PO DAILY 06/21/18 09/03/18 Morphine Pain Pump 1 dose INTRATHECA DIRECTED 08/20/18 09/03/18 Nocdurna 27.7 mcg SUBLINGUAL HS 08/20/18 09/03/18 metFORMIN HCL 1,000 mg PO BID 08/20/18 09/03/18 Previous Rx's Medication Instructions Recorded Amoxicillin/Potassium Clav 1 tab PO Q12HR #20 tab 08/27/18 [Augmentin 875-125 Tablet] Allergies Allergy/AdvReac Type Severity Reaction Status Date / Time neomycin Allergy Itching Verified 09/03/18 07:13 Sulfa (Sulfonamide Allergy Dyspnea Verified 09/03/18 07:13 Antibiotics) sulfamethoxazole Allergy Dyspnea Verified 09/03/18 07:13 [From ] trimethoprim [From ] Allergy Dyspnea Verified 09/03/18 07:13 morphine AdvReac Itching Verified 09/03/18 07:13 Review of Systems ROS Statement: Those systems with pertinent positive or pertinent negative responses have been documented in the HPI. ROS Other: All systems not noted in ROS Statement are negative. Constitutional: Reports: weakness. Denies: fever, chills Eyes: Denies: vision change Respiratory: Denies: cough, dyspnea Cardiovascular: Denies: chest pain, palpitations, orthopnea, edema, syncope Gastrointestinal: Denies: abdominal pain, nausea, vomiting, diarrhea, constipation Genitourinary: Denies: dysuria, hematuria Musculoskeletal: Reports: as per HPI, back pain Skin: Denies: rash Neurological: Denies: headache, weakness, numbness Past Medical History Past Medical History: Cancer, Diabetes Mellitus, GERD/Reflux, Hyperlipidemia, Hypertension, Sleep Apnea/CPAP/BIPAP Additional Past Medical History / Comment(s): Lt Breast CA. HX IRREG HEART X1. USES CPAP. HX COLITIS. HAD BLACK STOOLS 4 WEEKS AGO, herniated disc in back History of Any Multi-Drug Resistant Organisms: MRSA Date of last positivie culture/infection: 04/02/17 MDRO Source:: URINE Past Surgical History: Back Surgery, Breast Surgery, Cholecystectomy, Hysterectomy Additional Past Surgical History / Comment(s): Lt Mastectomy W/ RECONSTRUCTION; RT BREAST IMPLANT. SINUS SURG X3., colonoscopy, pain pump implant Past Anesthesia/Blood Transfusion Reactions: Previous Problems w/ Anesthesia Additional Past Anesthesia/Blood Transfusion Reaction / Comment(s): HX OF DAMAGE TO VOCAL CORDS POST-OP BACK SURGERY Past Psychological History: No Psychological Hx Reported Smoking Status: Never smoker Past Alcohol Use History: None Reported Past Drug Use History: None Reported - Past Family History Father Sister(s) Family Medical History: Cancer Brother(s) Family Medical History: Cancer Additional Family Medical History / Comment(s): ANEURYSM Mother Family Medical History: No Reported History Additional Family Medical History / Comment(s): Mother was healthy. General Exam Limitations: no limitations General appearance: alert, in no apparent distress Head exam: Present: atraumatic, normocephalic Eye exam: Present: normal appearance. Absent: scleral icterus, conjunctival injection ENT exam: Present: mucous membranes dry Neck exam: Present: normal inspection Respiratory exam: Present: normal lung sounds bilaterally. Absent: respiratory distress, wheezes, rales, rhonchi, stridor Cardiovascular Exam: Present: regular rate, normal rhythm, normal heart sounds. Absent: systolic murmur, diastolic murmur, rubs, gallop GI/Abdominal exam: Present: soft. Absent: distended, tenderness, guarding, rebound, mass Extremities exam: Present: normal inspection, normal capillary refill. Absent: calf tenderness Back exam: Present: paraspinal tenderness. Absent: CVA tenderness (R), CVA tenderness (L) Neurological exam: Present: alert, CN II-XII intact. Absent: motor sensory deficit Skin exam: Present: warm, dry, intact, normal color. Absent: rash Course Vital Signs 09/03/18 09/03/18 09/03/18 02:43 07:31 08:00 Temperature 97.9 F 98.3 F Pulse Rate 78 70 Pulse Rate [ 67 Pulse Oximetery ] Respiratory 17 16 16 Rate Blood Pressure 123/78 120/63 O2 Sat by Pulse 96 95 Oximetry EKG Findings - EKG Comments: EKG Findings:: There may be 2 inversions anteriorly, the ECG does have some artifact and will need to be repeated - EKG Results: EKG: interpreted by MONO, sinus rhythm (Rate 78 bpm), normal axis, normal QRS Medical Decision Making - Lab Data Result diagrams: 09/04/18 05:51 09/04/18 05:51 Lab Results 09/03/18 09/03/18 09/03/18 Range/Units 03:53 03:53 03:53 WBC 12.0 H (3.8-10.6) k/uL RBC 5.51 H (3.80-5.40) m/uL Hgb 15.1 D (11.4-16.0) gm/dL Hct 48.5 H (34.0-46.0) % MCV 88.1 (80.0-100.0) fL MCH 27.5 (25.0-35.0) pg MCHC 31.2 (31.0-37.0) g/dL RDW 16.5 H (11.5-15.5) % Plt Count 264 (150-450) k/uL Neutrophils % 75 % Lymphocytes % 15 % Monocytes % 7 % Eosinophils % 2 % Basophils % 0 % Neutrophils # 9.0 H (1.3-7.7) k/uL Lymphocytes # 1.8 (1.0-4.8) k/uL Monocytes # 0.8 (0-1.0) k/uL Eosinophils # 0.2 (0-0.7) k/uL Basophils # 0.1 (0-0.2) k/uL Anisocytosis Slight PT (9.0-12.0) sec INR (<1.2) APTT (22.0-30.0) sec Sodium 136 L (137-145) mmol/L Potassium 4.2 (3.5-5.1) mmol/L Chloride 95 L (98-107) mmol/L Carbon Dioxide 31 H (22-30) mmol/L Anion Gap 10 mmol/L BUN 17 (7-17) mg/dL Creatinine 0.82 (0.52-1.04) mg/dL Est GFR (CKD-EPI)AfAm 86 (>60 ml/min/1.73 sqM) Est GFR (CKD-EPI)NonAf 74 (>60 ml/min/1.73 sqM) Glucose 216 H (74-99) mg/dL Plasma Lactic Acid Adan (0.7-2.0) mmol/L Calcium 9.7 (8.4-10.2) mg/dL Magnesium 1.8 (1.6-2.3) mg/dL Total Bilirubin 1.1 (0.2-1.3) mg/dL AST 25 (14-36) U/L ALT 25 (9-52) U/L Alkaline Phosphatase 88 (38-126) U/L Total Creatine Kinase <20 L (30-135) U/L CK-MB (CK-2) 0.3 (0.0-2.4) ng/mL CK-MB (CK-2) Rel Index Troponin I <0.012 (0.000-0.034) ng/mL Total Protein 8.1 (6.3-8.2) g/dL Albumin 4.2 (3.5-5.0) g/dL Urine Color Urine Appearance (Clear) Urine pH (5.0-8.0) Ur Specific [place] (1.001-1.035) Urine Protein (Negative) Urine Glucose (UA) (Negative) Urine Ketones (Negative) Urine Blood (Negative) Urine Nitrite (Negative) Urine Bilirubin (Negative) Urine Urobilinogen (<2.0) mg/dL Ur Leukocyte Esterase (Negative) 09/03/18 09/03/18 09/03/18 Range/Units 03:53 03:53 05:57 WBC (3.8-10.6) k/uL RBC (3.80-5.40) m/uL Hgb (11.4-16.0) gm/dL Hct (34.0-46.0) % MCV (80.0-100.0) fL MCH (25.0-35.0) pg MCHC (31.0-37.0) g/dL RDW (11.5-15.5) % Plt Count (150-450) k/uL Neutrophils % % Lymphocytes % % Monocytes % % Eosinophils % % Basophils % % Neutrophils # (1.3-7.7) k/uL Lymphocytes # (1.0-4.8) k/uL Monocytes # (0-1.0) k/uL Eosinophils # (0-0.7) k/uL Basophils # (0-0.2) k/uL Anisocytosis PT 11.5 (9.0-12.0) sec INR 1.1 (<1.2) APTT 26.9 (22.0-30.0) sec Sodium (137-145) mmol/L Potassium (3.5-5.1) mmol/L Chloride (98-107) mmol/L Carbon Dioxide (22-30) mmol/L Anion Gap mmol/L BUN (7-17) mg/dL Creatinine (0.52-1.04) mg/dL Est GFR (CKD-EPI)AfAm (>60 ml/min/1.73 sqM) Est GFR (CKD-EPI)NonAf (>60 ml/min/1.73 sqM) Glucose (74-99) mg/dL Plasma Lactic Acid Adan 1.2 (0.7-2.0) mmol/L Calcium (8.4-10.2) mg/dL Magnesium (1.6-2.3) mg/dL Total Bilirubin (0.2-1.3) mg/dL AST (14-36) U/L ALT (9-52) U/L Alkaline Phosphatase (38-126) U/L Total Creatine Kinase (30-135) U/L CK-MB (CK-2) (0.0-2.4) ng/mL CK-MB (CK-2) Rel Index Troponin I (0.000-0.034) ng/mL Total Protein (6.3-8.2) g/dL Albumin (3.5-5.0) g/dL Urine Color Yellow Urine Appearance Clear (Clear) Urine pH 7.0 (5.0-8.0) Ur Specific [place] 1.012 (1.001-1.035) Urine Protein Negative (Negative) Urine Glucose (UA) Negative (Negative) Urine Ketones Negative (Negative) Urine Blood Negative (Negative) Urine Nitrite Negative (Negative) Urine Bilirubin Negative (Negative) Urine Urobilinogen 2.0 (<2.0) mg/dL Ur Leukocyte Esterase Negative (Negative) Disposition Clinical Impression: Intractable back pain Disposition: ADMITTED IP TO THIS HOSP Condition: Fair Is patient prescribed a controlled substance at d/c from ED?: No
[2018-09-03] MEDS ORDERED: MORPHINE SULFATE 4 MG/ML SYRINGE IV STA (05:19)
[2018-09-03] MEDS ORDERED: HYDROcodone/APAP 10-325MG 1 EACH TAB PO ONE (05:39)
[2018-09-03 06:03] LABS: Appearance,Urine Clear (Clear); Bilirubin,Urine Negative (Negative); Blood,Urine Negative (Negative); Color,Urine Yellow; Glucose,Urine (UA) Negative (Negative); Ketones,Urine Negative (Negative); Leukocyte Esterase,Urine Negative (Negative); Nitrite,Urine Negative (Negative); Protein,Urine Negative (Negative); Specific Gravity,Urine 1.012 (1.001-1.035)
[2018-09-03] MEDS ORDERED: MORPHINE SULFATE 4 MG/ML SYRINGE IV PRN (07:26)
[2018-09-03] MEDS ORDERED: NALOXONE 0.4 MG/ML 1 ML VIAL IV PRN (07:26)
[2018-09-03] MEDS ORDERED: diphenhydrAMINE 50 MG/ML 1 ML VIAL IVP PRN (07:28)
[2018-09-03] MEDS ORDERED: METHOCARBAMOL 500 MG TAB PO PRN (07:29)
[2018-09-03] MEDS: SODIUM CHLORIDE 0.9% 1,000 ML IV SCH (07:42)
[2018-09-03] MEDS ORDERED: NON-FORMULARY DRUG (Liraglutide [Victoza 2-Pak] 1.8 MG) SQ SCH (09:00)
[2018-09-03 09:22] LABS: Glucose,Whole Blood 183 mg/dL (75-99)
[2018-09-03] MEDS: MELOXICAM 7.5 MG TAB PO SCH (09:27)
[2018-09-03] MEDS: MONTELUKAST 10 MG TAB PO SCH (09:27)
[2018-09-03] MEDS: DULoxetine HCL 60 MG CAPSULE.DR PO SCH (09:27)
[2018-09-03] MEDS: ATORVASTATIN 80 MG TAB PO SCH (09:27)
[2018-09-03] MEDS: ASPIRIN 81 MG PO SCH (09:27)
[2018-09-03] MEDS: VALSARTAN 40 MG TAB PO SCH (09:28)
[2018-09-03] MEDS: INSULIN DETEMIR 100 UNIT/ML 10 ML VIAL SQ SCH (09:28)
[2018-09-03] MEDS: LEVOTHYROXINE 75 MCG TAB PO SCH (09:28)
[2018-09-03] MEDS: metFORMIN 500 MG TAB PO SCH ×2 (09:28→18:05)
[2018-09-03] MEDS: PANTOPRAZOLE 40 MG TABLET PO SCH ×2 (09:28→17:26)
[2018-09-03 09:43] LABS: Anisocytosis Slight; Basophils % (A) 0 %; Eosinophils # (A) 0.3 k/uL (0-0.7); Eosinophils % (A) 2 %; HCT 43.2 % (34.0-46.0); HGB 13.7 gm/dL (11.4-16.0); Lymphocytes # (A) 2.2 k/uL (1.0-4.8); Lymphocytes % (A) 18 %; MCH 28.3 pg (25.0-35.0); MCHC 31.8 g/dL (31.0-37.0); Mean Platelet Volume 6.9; Monocytes # (A) 0.8 k/uL (0-1.0); Monocytes % (A) 6 %; Neutrophils # (A) 8.9 k/uL (1.3-7.7); Neutrophils % (A) 72 %; Platelet Count 249 k/uL (150-450); RBC 4.86 m/uL (3.80-5.40); RDW 16.5 % (11.5-15.5); WBC 12.4 k/uL (3.8-10.6)
[2018-09-03] MEDS: HYDROcodone/APAP 5-325MG 1 EACH TAB PO PRN ×3 (09:46→21:16)
[2018-09-03] MEDS ORDERED: MORPHINE ORAL SOLN 10 MG/5 ML CUP PO PRN (09:58)
[2018-09-03] MEDS: Canagliflozin [Invokana] 100 MG PO SCH (10:00)
[2018-09-03 10:05] LABS: ALT 21 U/L (9-52); AST 22 U/L (14-36); Albumin 3.6 g/dL (3.5-5.0); Alkaline Phosphatase 72 U/L (38-126); Anion Gap 10 mmol/L; Blood Urea Nitrogen 17 mg/dL (7-17); Calcium 9.2 mg/dL (8.4-10.2); Carbon Dioxide 29 mmol/L (22-30); Chloride 98 mmol/L (98-107); Glucose 165 mg/dL (74-99); Potassium 4.3 mmol/L (3.5-5.1); Sodium 137 mmol/L (137-145); Total Bilirubin 0.9 mg/dL (0.2-1.3)
[2018-09-03 11:45] LABS: Glucose,Whole Blood 205 mg/dL (75-99)
--- NOTE | 2018-09-03 12:07 | US ---
EXAMINATION TYPE: US venous doppler duplex LE DATE OF EXAM: 09/03/2018 11:07 AM COMPARISON: NONE CLINICAL HISTORY: r/o DVT. Pt states leg pain SIDE PERFORMED: Bilateral TECHNIQUE: The lower extremity deep venous system is examined utilizing real time linear array sonog connie with graded compression, doppler sonography and color-flow sonography. VESSELS IMAGED: External Iliac Vein (EIV) Common Femoral Vein Deep Femoral Vein Greater Saphenous Vein * Femoral Vein Popliteal Vein Small Saphenous Vein * Proximal Calf Veins (* superficial vessels) Right Leg: Negative for DVT Left Leg: Negative for DVT IMPRESSION: 1. Bilateral lower extremity ultrasound negative for deep venous thrombosis.
--- NOTE | 2018-09-03 12:13 | P.HPIM ---
History of Present Illness H&P Date: 09/03/18 This is a 68-year-old female patient of Dr. Rose. Patient presented to the emergency room with complaints of chronic low back pain patient states the pain has been radiating to her left leg. Patient also states she's had recent falls. Per patient her found her and she was disoriented and confused. Patient concerned she may be having a reaction to the morphine she receives through her PainPump for her back pain. Patient states her PainPump was placed by Dr. Lewis. Patient denies any changes to urination or bowel patterns. She has a significant medical history for breast cancer, diabetes mellitus, GERD , hyperlipidemia, hypertension, pneumonia, sleep apnea and chronic back pain. Chest x-ray completed in emergency room showing no active cardiopulmonary disease. No change. EKG completed showing normal sinus rhythm. T-wave abnormality, consider anterior ischemia Patient denies chest pain or shortness breath. At this time patient is complaining of significant left leg pain and weakness. Dr. Lazaro has been consulted for orthopedic surgery. Pain management also consulted for PainPump. Will perform venous Doppler of left lower extremity and x-ray of left leg. At that time patient denies chest pain or shortness breath. Patient denies nausea vomiting or diarrhea. Patient denies any urinary burning or frequency. Review of Systems Please refer to HPI otherwise unremarkable Past Medical History Past Medical History: Cancer, Diabetes Mellitus, GERD/Reflux, Hyperlipidemia, Hypertension, Pneumonia, Sleep Apnea/CPAP/BIPAP Additional Past Medical History / Comment(s): Pt recently admitted 08/22/18 with pneumonia/sepsis possible aspiration pne, N/V, UTI, hyperkalemia and constipation. Other Hx: IDDM type II, chronic low back pain radiates to L leg/has pain pump, herniated discs, colitis, black stools, L breast cancer with mastectomy, irregular heart beat once, JANENE with Cpap, dysphagia, hypothyroid, constipation. History of Any Multi-Drug Resistant Organisms: MRSA Date of last positivie culture/infection: 04/02/17 MDRO Source:: URINE Past Surgical History: Back Surgery, Breast Surgery, Cholecystectomy, Hysterectomy Additional Past Surgical History / Comment(s): Lt Mastectomy W/ RECONSTRUCTION; RT BREAST IMPLANT. SINUS SURG X3., colonoscopy, pain pump implant Past Anesthesia/Blood Transfusion Reactions: Previous Problems w/ Anesthesia Additional Past Anesthesia/Blood Transfusion Reaction / Comment(s): HX OF DAMAGE TO VOCAL CORDS POST-OP BACK SURGERY Smoking Status: Never smoker - Past Family History Father Sister(s) Family Medical History: Cancer Additional Family Medical History / Comment(s): Father had leukemia and sister had pancreatic cancer. Brother(s) Family Medical History: Cancer Additional Family Medical History / Comment(s): Prostate cancer, ANEURYSM Mother Family Medical History: No Reported History Additional Family Medical History / Comment(s): Mother was healthy. Medications and Allergies Home Medications Medication Instructions Recorded Confirmed Type Aspirin EC [Ecotrin Low Dose] 81 mg PO DAILY 04/22/16 09/03/18 History Esomeprazole Magnesium [NexIUM] 40 mg PO BID 04/22/16 09/03/18 History Liraglutide [Victoza 2-Dread] 1.8 mg SQ DAILY 04/22/16 09/03/18 History Methocarbamol [Robaxin] 500 mg PO BID PRN 04/22/16 09/03/18 History traMADol HCL [Ultram] 50 mg PO DAILY PRN 04/22/16 09/03/18 History Rosuvastatin Calcium [Crestor] 40 mg PO DAILY 06/02/16 09/03/18 History Insulin Glargine [Lantus] 50 unit SQ DAILY 11/01/17 09/03/18 History Levothyroxine Sodium [Synthroid] 75 mcg PO DAILY 11/01/17 09/03/18 History Canagliflozin [Invokana] 100 mg PO DAILY 06/21/18 09/03/18 History Celecoxib [CeleBREX] 200 mg PO DAILY 06/21/18 09/03/18 History DULoxetine HCL [Cymbalta] 60 mg PO DAILY 06/21/18 09/03/18 History Mirabegron [Myrbetriq] 50 mg PO DAILY 06/21/18 09/03/18 History Montelukast [Singulair] 10 mg PO DAILY 06/21/18 09/03/18 History Valsartan [Diovan] 40 mg PO DAILY 06/21/18 09/03/18 History Morphine Pain Pump 1 dose INTRATHECA DIRECTED 08/20/18 09/03/18 History Nocdurna 27.7 mcg SUBLINGUAL HS 08/20/18 09/03/18 History metFORMIN HCL 1,000 mg PO BID 08/20/18 09/03/18 History Amoxicillin/Potassium Clav 1 tab PO Q12HR #20 tab 08/27/18 09/03/18 Rx [Augmentin 875-125 Tablet] Allergies Allergy/AdvReac Type Severity Reaction Status Date / Time neomycin Allergy Itching Verified 09/03/18 07:13 Sulfa (Sulfonamide Allergy Dyspnea Verified 09/03/18 07:13 Antibiotics) sulfamethoxazole Allergy Dyspnea Verified 09/03/18 07:13 [From ] trimethoprim [From ] Allergy Dyspnea Verified 09/03/18 07:13 morphine AdvReac Itching Verified 09/03/18 07:13 Physical Exam Vitals: Vital Signs Temp Pulse Pulse Resp BP BP Pulse Ox 09/03/18 08:26 98.2 F 67 16 125/72 92 L 09/03/18 08:00 67 16 09/03/18 07:31 98.3 F 70 16 120/63 95 09/03/18 02:43 97.9 F 78 17 123/78 96 Intake and Output 09/02/18 09/03/18 09/03/18 22:59 06:59 14:59 Other: Voiding Method Toilet Weight 86.636 kg 79.5 kg Head normocephalic Neck supple Lungs clear to auscultation bilaterally no wheezing or crackles Heart regular rate and rhythm S1-S2, no rub or gallop Abdomen is soft nontender nondistended positive bowel sounds no hepatosplenomegaly Extremities increased left upper leg extremity edema Neuro alert and orientated to 3 Results CBC & Chem 7: 09/03/18 09:24 09/03/18 09:24 Labs: Abnormal Lab Results - Last 24 Hours (Table) 09/03/18 09/03/18 09/03/18 Range/Units 03:53 03:53 03:53 WBC 12.0 H (3.8-10.6) k/uL RBC 5.51 H (3.80-5.40) m/uL Hct 48.5 H (34.0-46.0) % RDW 16.5 H (11.5-15.5) % Neutrophils # 9.0 H (1.3-7.7) k/uL Sodium 136 L (137-145) mmol/L Chloride 95 L (98-107) mmol/L Carbon Dioxide 31 H (22-30) mmol/L Glucose 216 H (74-99) mg/dL POC Glucose (mg/dL) (75-99) mg/dL Total Creatine Kinase <20 L (30-135) U/L 09/03/18 09/03/18 09/03/18 Range/Units 09:11 09:24 09:24 WBC 12.4 H (3.8-10.6) k/uL RBC (3.80-5.40) m/uL Hct (34.0-46.0) % RDW 16.5 H (11.5-15.5) % Neutrophils # 8.9 H (1.3-7.7) k/uL Sodium (137-145) mmol/L Chloride (98-107) mmol/L Carbon Dioxide (22-30) mmol/L Glucose 165 H (74-99) mg/dL POC Glucose (mg/dL) 183 H (75-99) mg/dL Total Creatine Kinase (30-135) U/L 09/03/18 Range/Units 11:43 WBC (3.8-10.6) k/uL RBC (3.80-5.40) m/uL Hct (34.0-46.0) % RDW (11.5-15.5) % Neutrophils # (1.3-7.7) k/uL Sodium (137-145) mmol/L Chloride (98-107) mmol/L Carbon Dioxide (22-30) mmol/L Glucose (74-99) mg/dL POC Glucose (mg/dL) 205 H (75-99) mg/dL Total Creatine Kinase (30-135) U/L Thrombosis Risk Factor Assmnt - Choose All That Apply Any of the Below Risk Factors Present?: Yes Each Factor Represents 1 point: Medical pt on bed rest, Obesity (BMI >25), Sepsis (< 1month) Other Risk Factors: Yes Each Risk Factor Represents 2 Points: Patient confined to bed, Malignancy Other congenital or acquired thrombophilia - If yes, enter type in comment: No Thrombosis Risk Factor Assessment Total Risk Factor Score: 7 Thrombosis Risk Factor Assessment Level: High Risk Assessment and Plan Assessment: 1. Chronic back pain. Concerns for not properly working PainPump. Pain management services have been consulted 2. Left leg pain. Dr. Rojas has been consulted. Venous Doppler has been ordered. X-ray of left knee hip and femur ordered 3. Mild leukocytosis. Blood cell 12.4. UA negative. Chest x-ray completed showing no active cardiopulmonary disease. No change. Patient denies any symptoms of an acute infection. We'll continue to monitor closely 4. Diabetes mellitus type 2. Home meds resumed 5. History of GERD 6. History of hyperlipidemia 7. History of essential hypertension 8. History of previous pneumonia 9. History of sleep apnea DVT prophylaxis SCDs until evaluated by surgery. GI prophylaxis Protonix Time with Patient: Greater than 30 (Greater than 60% of the total time spent in counseling and coordination of care. I performed an examination of the patient and discussed their management with the Nurse Practitioner. I have reviewed the Nurse Practitioner's notes and agree with the documented findings and plan of care)
[2018-09-03] MEDS: INSULIN ASPART 100 UNIT/ML 1 ML 10 ML VIAL SQ SCH ×3 (12:17→21:17)
--- NOTE | 2018-09-03 13:33 | XR ---
EXAMINATION TYPE: XR knee complete LT DATE OF EXAM: 09/03/2018 COMPARISON: None HISTORY: Decreased mobility left leg pain TECHNIQUE: Three-view left knee FINDINGS: No acute fractures are evident. Joint spaces are preserved. No joint effusion is evident. A nterior superior patellar spur is present. IMPRESSION: 1. Normal three-view left knee
--- NOTE | 2018-09-03 13:34 | XR ---
EXAMINATION TYPE: XR Hip Complete LT DATE OF EXAM: 09/03/2018 COMPARISON: None HISTORY: Pain TECHNIQUE: 2 view left hip FINDINGS: There is mild to moderate narrowing of the joint space. The femoral head articulates with t he acetabulum. No acute fractures are evident. IMPRESSION: 1. Mild degenerative changes at the left hip
--- NOTE | 2018-09-03 13:36 | XR ---
EXAMINATION TYPE: XR femur LT DATE OF EXAM: 09/03/2018 COMPARISON: None HISTORY: Pain TECHNIQUE: 2 view left femur FINDINGS: Femoral head articulates with the acetabulum. Mild degenerative joint changes are at the le ft hip. Some spurring is noted at the lesser trochanter. Knee joint space appears normal. No acute fr actures or dislocations are evident. IMPRESSION: 1. Normal 2 view left femur.
[2018-09-03 15:34] VITALS: BMI 31.0
[2018-09-03 16:57] LABS: Glucose,Whole Blood 144 mg/dL (75-99)
[2018-09-03 20:05] LABS: Hemoglobin A1C 8.1 % (4.0-6.0)
[2018-09-03 20:27] LABS: Glucose,Whole Blood 173 mg/dL (75-99)
[2018-09-04] MEDS: HYDROcodone/APAP 5-325MG 1 EACH TAB PO PRN ×2 (02:10→06:28)
[2018-09-04 06:03] LABS: Anisocytosis Slight; Basophils # (A) 0.1 k/uL (0-0.2); Basophils % (A) 1 %; Eosinophils # (A) 0.4 k/uL (0-0.7); Eosinophils % (A) 4 %; HCT 39.2 % (34.0-46.0); HGB 12.3 gm/dL (11.4-16.0); Hypochromasia Slight; Lymphocytes % (A) 22 %; MCH 27.4 pg (25.0-35.0); MCHC 31.3 g/dL (31.0-37.0); MCV 87.6 fL (80.0-100.0); Mean Platelet Volume 6.4; Monocytes # (A) 0.5 k/uL (0-1.0); Monocytes % (A) 6 %; Neutrophils # (A) 6.2 k/uL (1.3-7.7); Neutrophils % (A) 67 %; Platelet Count 244 k/uL (150-450); RBC 4.48 m/uL (3.80-5.40); RDW 16.7 % (11.5-15.5); WBC 9.2 k/uL (3.8-10.6)
[2018-09-04 06:19] LABS: ALT 23 U/L (9-52); AST 16 U/L (14-36); Albumin 3.1 g/dL (3.5-5.0); Alkaline Phosphatase 76 U/L (38-126); Anion Gap 7 mmol/L; Blood Urea Nitrogen 21 mg/dL (7-17); Calcium 9.1 mg/dL (8.4-10.2); Carbon Dioxide 29 mmol/L (22-30); Chloride 100 mmol/L (98-107); Glucose 185 mg/dL (74-99); Potassium 4.3 mmol/L (3.5-5.1); Sodium 136 mmol/L (137-145); Total Bilirubin 0.4 mg/dL (0.2-1.3); Total Protein 6.3 g/dL (6.3-8.2)
[2018-09-04] MEDS: LEVOTHYROXINE 75 MCG TAB PO SCH (06:28)
[2018-09-04 07:02] LABS: Glucose,Whole Blood 160 mg/dL (75-99)
[2018-09-04] MEDS: metFORMIN 500 MG TAB PO SCH ×2 (08:23→17:24)
[2018-09-04] MEDS: MONTELUKAST 10 MG TAB PO SCH (08:23)
[2018-09-04] MEDS: ASPIRIN 81 MG PO SCH (08:23)
[2018-09-04] MEDS: PANTOPRAZOLE 40 MG TABLET PO SCH ×2 (08:23→17:24)
[2018-09-04] MEDS: ATORVASTATIN 80 MG TAB PO SCH (08:23)
[2018-09-04] MEDS: INSULIN ASPART 100 UNIT/ML 1 ML 10 ML VIAL SQ SCH ×4 (08:23→20:15)
[2018-09-04] MEDS: DULoxetine HCL 60 MG CAPSULE.DR PO SCH (08:23)
[2018-09-04] MEDS: VALSARTAN 40 MG TAB PO SCH (08:23)
[2018-09-04] MEDS: MELOXICAM 7.5 MG TAB PO SCH (08:24)
[2018-09-04] MEDS: SODIUM CHLORIDE 0.9% 1,000 ML IV SCH (08:30)
[2018-09-04] MEDS: INSULIN DETEMIR 100 UNIT/ML 10 ML VIAL SQ SCH (08:59)
[2018-09-04] MEDS ORDERED: ENOXAPARIN 40 MG/0.4 ML SYRINGE SQ SCH (09:00)
[2018-09-04] MEDS: Canagliflozin [Invokana] 100 MG PO SCH (09:02)
--- NOTE | 2018-09-04 11:00 | P.CNOR ---
History of Present Illness - [facility] Consult date: 09/03/18 Requesting physician: Lexie Craven Consult reason: low back pain (Acute on chronic low back pain), other (Acute left lower extremity weakness) History of present illness: Patient is a very pleasant 68-year-old female who is seen and examined at bedside after consultation was placed for intractable back pain. Patient states at the bedside her most significant symptom is new onset left lower extremity radiculopathy and leg weakness. She has pain that radiates over the left anterior thigh towards the knee. She states over the past 3 days she has had increased weakness with her left lower extremity. She has significant difficulty performing dorsiflexion, plantarflexion, and wiggling any of the toes of the left foot. She is able to lift her left leg independently but has some difficulty doing so. She denies any right lower extremity radiculopathy or weakness. She states in the outpatient setting she ambulates in the home without a walking aid. In public she ambulates with the assistance of a walker. She states she does have a history of 9 surgeries at her lumbar spine performed in [place] with the last procedure in [place] performed in 2010. She has returned back to [place] where she previously resided. She follows with Dr. Andrade for treatment, evaluation, and pain control. She states she recently had a morphine pump placed by Dr. Andrade on 08/13/2018. She was supposed to follow up for further evaluation the first week of August but was unable to do so as she was admitted to the hospital for further treatment and evaluation for altered mental status, severe weakness, and nausea and vomiting. She was found to have pulmonary infiltrates following imaging. No imaging has been obtained during this admission. Previous CT of the abdomen and pelvis was performed on 08/21/2018. Patient does admit to diabetes and has difficulty controlling her glucose levels and states her glucose levels usually run at approximately 199. Urine testing has been negative for urinary tract infection. Documentation states patient's family is concerned she may be having a reaction to the morphine pump as she has been more somnolent than usual and states patient has appeared confused and disoriented. Family is not present at the bedside during examination. Past Medical History Past Medical History: Cancer, Diabetes Mellitus, GERD/Reflux, Hyperlipidemia, Hypertension, Pneumonia, Sleep Apnea/CPAP/BIPAP Additional Past Medical History / Comment(s): Pt recently admitted 08/22/18 with pneumonia/sepsis possible aspiration pne, N/V, UTI, hyperkalemia and constipation. Other Hx: IDDM type II, chronic low back pain radiates to L leg/has pain pump, herniated discs, colitis, black stools, L breast cancer with mastectomy, irregular heart beat once, JANENE with Cpap, dysphagia, hypothyroid, constipation. History of Any Multi-Drug Resistant Organisms: MRSA Year Discovered:: 04/02/17 MDRO Source:: URINE Past Surgical History: Back Surgery, Breast Surgery, Cholecystectomy, Hysterectomy Additional Past Surgical History / Comment(s): Lt Mastectomy W/ RECONSTRUCTION; RT BREAST IMPLANT. SINUS SURG X3., colonoscopy, pain pump implant Past Anesthesia/Blood Transfusion Reactions: Previous Problems w/ Anesthesia Additional Past Anesthesia/Blood Transfusion Reaction / Comm: HX OF DAMAGE TO VOCAL CORDS POST-OP BACK SURGERY Smoking Status: Never smoker - Past Family History Father Sister(s) Family Medical History: Cancer Additional Family Medical History / Comment(s): Father had leukemia and sister had pancreatic cancer. Brother(s) Family Medical History: Cancer Additional Family Medical History / Comment(s): Prostate cancer, ANEURYSM Mother Family Medical History: No Reported History Additional Family Medical History / Comment(s): Mother was healthy. Medications and Allergies Home Medications Medication Instructions Recorded Confirmed Type Aspirin EC [Ecotrin Low Dose] 81 mg PO DAILY 04/22/16 09/03/18 History Esomeprazole Magnesium [NexIUM] 40 mg PO BID 04/22/16 09/03/18 History Liraglutide [Victoza 2-Dread] 1.8 mg SQ DAILY 04/22/16 09/03/18 History Methocarbamol [Robaxin] 500 mg PO BID PRN 04/22/16 09/03/18 History traMADol HCL [Ultram] 50 mg PO DAILY PRN 04/22/16 09/03/18 History Rosuvastatin Calcium [Crestor] 40 mg PO DAILY 06/02/16 09/03/18 History Insulin Glargine [Lantus] 50 unit SQ DAILY 11/01/17 09/03/18 History Levothyroxine Sodium [Synthroid] 75 mcg PO DAILY 11/01/17 09/03/18 History Canagliflozin [Invokana] 100 mg PO DAILY 06/21/18 09/03/18 History Celecoxib [CeleBREX] 200 mg PO DAILY 06/21/18 09/03/18 History DULoxetine HCL [Cymbalta] 60 mg PO DAILY 06/21/18 09/03/18 History Mirabegron [Myrbetriq] 50 mg PO DAILY 06/21/18 09/03/18 History Montelukast [Singulair] 10 mg PO DAILY 06/21/18 09/03/18 History Valsartan [Diovan] 40 mg PO DAILY 06/21/18 09/03/18 History Morphine Pain Pump 1 dose INTRATHECA DIRECTED 08/20/18 09/03/18 History Nocdurna 27.7 mcg SUBLINGUAL HS 08/20/18 09/03/18 History metFORMIN HCL 1,000 mg PO BID 08/20/18 09/03/18 History Amoxicillin/Potassium Clav 1 tab PO Q12HR #20 tab 08/27/18 09/03/18 Rx [Augmentin 875-125 Tablet] Allergies Allergy/AdvReac Type Severity Reaction Status Date / Time neomycin Allergy Itching Verified 09/03/18 07:13 Sulfa (Sulfonamide Allergy Dyspnea Verified 09/03/18 07:13 Antibiotics) sulfamethoxazole Allergy Dyspnea Verified 09/03/18 07:13 [From Aprra] trimethoprim [From ] Allergy Dyspnea Verified 09/03/18 07:13 morphine AdvReac Itching Verified 09/03/18 07:13 Physical Examination Physical exam: Patient is awake, alert, and oriented 3 Vital signs stable Good chest excursion with deep inspiration and expiration Examination of lumbar spine reveals skin is intact with no abrasions, lacerations, or bruises; no erythema, purulence or obvious signs of infection Evidence of a healing incision at the left lateral lumbar spine at the mid upper lumbar spine with a small scab at the superior portion of the incision Evidence of a large well-healed incision along the midline extending over most of the lumbar spine Evidence of a small well-healed incision along the right side of the mid upper lumbar spine No significant pain with palpation over the surgical sites Dorsiflexion, plantarflexion, and extensor hallucis longus positive sustained on the right Patient is unable to perform any significant dorsiflexion, plantarflexion, were extensor hallucis longus on the left Lower extremity strength 5/5 on the right Patient has difficulty but is able to lift left lower extremity off the bed Patellar reflex 1+ bilaterally and Achilles reflexes 0+ bilaterally Some increased pain with testing patellar reflex on the left No lower extremity hyperreflexia bilaterally No signs or symptoms of DVT; no calf pain No pain with internal and external rotation of the hips bilaterally Neurovascularly intact Results Pertinent studies: CT of the abdomen and pelvis taken on 08/21/2018 and reviewed for spine purposes : Evidence of hardware at L3-4 extending to L5-S1; evidence of placement of what appears to be morphine pump with lead present within the spinal canal; no apparent compression fracture deformities WBC taken on 09/03/2018: 12.0 Neutrophils taken on 09/03/2018: 9.0 - Labs Labs: Abnormal Lab Results - Last 24 Hours (Table) 09/03/18 09/03/18 09/03/18 Range/Units 03:53 03:53 03:53 WBC 12.0 H (3.8-10.6) k/uL RBC 5.51 H (3.80-5.40) m/uL Hct 48.5 H (34.0-46.0) % RDW 16.5 H (11.5-15.5) % Neutrophils # 9.0 H (1.3-7.7) k/uL Sodium 136 L (137-145) mmol/L Chloride 95 L (98-107) mmol/L Carbon Dioxide 31 H (22-30) mmol/L Glucose 216 H (74-99) mg/dL Total Creatine Kinase <20 L (30-135) U/L H & H 09/03/18 Range/Units 03:53 Hgb 15.1 D (11.4-16.0) gm/dL Hct 48.5 H (34.0-46.0) % Coagulation 09/03/18 Range/Units 03:53 INR 1.1 (<1.2) Result Diagrams: 09/04/18 05:51 09/04/18 05:51 Assessment and Plan Assessment: Assessment: Acute on chronic low back pain Acute onset left lower extremity weakness with dorsiflexion, plantarflexion, extensor hallucis longus History of lumbar surgery 9 performed in [place] History of morphine pump placement of the lumbar spine performed on 08/13/2018 Diabetes mellitus History of hypertension (1) Weakness Current Visit: Yes Status: Acute Code(s): R53.1 - WEAKNESS SNOMED Code(s) : 20187743 (2) History of lumbar fusion Current Visit: Yes Status: Acute Code(s): Z98.1 - ARTHRODESIS STATUS SNOMED Code(s): 902797873 (3) Diabetes Current Visit: Yes Status: Acute Code(s): E11.9 - TYPE 2 DIABETES MELLITUS WITHOUT COMPLICATIONS SNOMED Code(s): 41102726 (4) Hypertension Current Visit: Yes Status: Acute Code(s): I10 - ESSENTIAL (PRIMARY) HYPERTENSION SNOMED Code(s): 96241227 (5) Radiculopathy of leg Current Visit: Yes Status: Acute Code(s): M54.10 - RADICULOPATHY, SITE UNSPECIFIED SNOMED Code(s): 81329046 (6) Intractable back pain Current Visit: Yes Status: Acute Code(s): M54.9 - DORSALGIA, UNSPECIFIED SNOMED Code(s): 628431456 Plan: Plan: 1. Patient has been experiencing acute onset left lower extremity weakness without injury over the past 3 days and intractable back pain. Patient has significant difficulty ambulating due to her weakness. She normally can ambulate at home without a walking aid. She does use a walker to aid in ambulation outside the home. She has a significant history of the lumbar spine and underwent 9 surgical interventions at her lumbar spine all performed in [place]. She states she recently had a 10th procedure performed and had a morphine pump placed on 08/13/[address] Andrade. She's been unable to follow- up with him in the outpatient setting as she was scheduled to see him the first week of August but was admitted to the hospital for other medical diagnoses and treatment at that time. Patient's family feels she may be having a reaction to the morphine pump as she has been more somnolent and appearing confused and disoriented recently. She does admit to diabetes mellitus and had difficulty controlling her glucose levels. She states her glucose levels are usually 199. CT of the abdomen and pelvis performed on 08/21/2018 was reviewed for spine purposes and does show significant changes in her lumbar spine with hardware placement at L3-S1. There also appears to be placement of a morphine pump with lead placement within the spinal canal. Patient's symptoms are acute and significant. It's difficult to determine which plan of care would be appropriate for her as she could benefit from steroid medication but does have significant difficulty with glucose control. This was discussed with the patient in detail. We discussed steroid medication could be prescribed with glucose levels monitored by Dr. Craven in medicine. I'm unsure if patient is able to undergo an MRI of her lumbar spine following her recent morphine pump placement. I discussed with the patient it would be most beneficial if the hospital would be able to contact Dr. Andrade for an appropriate plan of care in regards to her following her recent procedure. She is in an acute postoperative phase following recent surgical intervention performed by Dr. Andrade. At this time we are not currently planning for further treatment or evaluation and feel treatment should be advised by Dr. Andrade or Dr. Craven. If she were to need further surgical intervention she should be transferred to a tertiary facility at the discretion of Dr. Andrade. We will not plan to have the patient follow-up in the outpatient setting. Patient has been discussed with Dr. Kwame Rojas and he agrees with this plan. 2. Medicine or nursing will plan to contact Dr. Andrade for further treatment recommendations 3. Dr. Craven in medicine will continue to follow patient closely Time with Patient: Greater than 30 (Spent on physical examination, obtaining history, reviewing of imaging, and dictation)
[2018-09-04 11:54] LABS: Glucose,Whole Blood 102 mg/dL (75-99)
--- NOTE | 2018-09-04 12:48 | P.PN ---
Subjective Progress Note Date: 09/04/18 This is a 68-year-old female patient of Dr. Rose. Patient presented to the emergency room with complaints of chronic low back pain patient states the pain has been radiating to her left leg. Patient also states she's had recent falls. Per patient her found her and she was disoriented and confused. Patient concerned she may be having a reaction to the morphine she receives through her PainPump for her back pain. Patient states her PainPump was placed by Dr. Lewis. Patient denies any changes to urination or bowel patterns. She has a significant medical history for breast cancer, diabetes mellitus, GERD , hyperlipidemia, hypertension, pneumonia, sleep apnea and chronic back pain. Chest x-ray completed in emergency room showing no active cardiopulmonary disease. No change. EKG completed showing normal sinus rhythm. T-wave abnormality, consider anterior ischemia Patient denies chest pain or shortness breath. At this time patient is complaining of significant left leg pain and weakness. Dr. Hess has been consulted for orthopedic surgery. Pain management also consulted for PainPump. Will perform venous Doppler of left lower extremity and x-ray of left leg. At that time patient denies chest pain or shortness breath. Patient denies nausea vomiting or diarrhea. Patient denies any urinary burning or frequency. On 09/04/2018 patient was seen and examined in the observation unit she is alert and oriented 3 in no apparent distress, she is still complaining of significant pain in the lower back and severe pain in the left lower extremity otherwise she denies any complaint at this time there is no fever or chills no headache or dizziness no chest pain no shortness of breath no cough no nausea or vomiting no abdominal pain no diarrhea and no urinary symptoms Objective - Vital Signs Vital signs: Vital Signs Temp 98.0 F 09/04/18 12:00 Pulse 72 09/04/18 12:00 Resp 16 09/04/18 12:00 BP 105/65 09/04/18 12:00 Pulse Ox 93 L 09/04/18 12:00 Intake & Output 09/03/18 09/04/18 09/04/18 18:59 06:59 18:59 Intake Total 200 Balance 200 Weight 79.5 kg Intake: Oral 200 Other: Voiding Method Toilet Toilet Toilet # Voids 1 1 - Exam Head normocephalic and atraumatic Neck supple no JVD no goiter Lungs clear to auscultation bilaterally no wheezing or crackles Heart regular rate and rhythm S1-S2, no rub or gallop Abdomen is soft nontender nondistended positive bowel sounds no hepatosplenomegaly Extremities increased left upper leg extremity edema Neuro alert and orientated to 3 - Labs CBC & Chem 7: 09/04/18 05:51 09/04/18 05:51 Labs: Abnormal Lab Results - Last 24 Hours (Table) 09/03/18 09/03/18 09/03/18 Range/Units 09:24 16:42 20:25 RDW (11.5-15.5) % Sodium (137-145) mmol/L BUN (7-17) mg/dL Glucose (74-99) mg/dL POC Glucose (mg/dL) 144 H 173 H (75-99) mg/dL Hemoglobin A1c 8.1 H (4.0-6.0) % Albumin (3.5-5.0) g/dL 09/04/18 09/04/18 09/04/18 Range/Units 05:51 05:51 07:01 RDW 16.7 H (11.5-15.5) % Sodium 136 L (137-145) mmol/L BUN 21 H (7-17) mg/dL Glucose 185 H (74-99) mg/dL POC Glucose (mg/dL) 160 H (75-99) mg/dL Hemoglobin A1c (4.0-6.0) % Albumin 3.1 L (3.5-5.0) g/dL 09/04/18 Range/Units 11:53 RDW (11.5-15.5) % Sodium (137-145) mmol/L BUN (7-17) mg/dL Glucose (74-99) mg/dL POC Glucose (mg/dL) 102 H (75-99) mg/dL Hemoglobin A1c (4.0-6.0) % Albumin (3.5-5.0) g/dL Assessment and Plan Plan: 1. Chronic back pain. Concerns for not properly working PainPump. Pain management services have been consulted, awaiting input 2. Left leg pain. Dr. Rojas has been consulted. Venous Doppler has been ordered. X-ray of left knee hip and femur ordered, Doppler is negative for DVT x-rays do not reveal any evidence of bony fracture, pain likely due to lower back etiology with nerve involvement. 3. Mild leukocytosis. Blood cell 12.4. UA negative. Chest x-ray completed showing no active cardiopulmonary disease. No change. Patient denies any symptoms of an acute infection. We'll continue to monitor closely, white blood count today 9.2 4. Diabetes mellitus type 2. Home meds resumed 5. History of GERD 6. History of hyperlipidemia 7. History of essential hypertension 8. History of previous pneumonia 9. History of sleep apnea DVT prophylaxis SCDs until evaluated by surgery. GI prophylaxis Protonix Will consult physical therapy to try to ambulate patient will reassess in a.m.
[2018-09-04 16:38] LABS: Glucose,Whole Blood 114 mg/dL (75-99)
[2018-09-04 20:16] LABS: Glucose,Whole Blood 124 mg/dL (75-99)
[2018-09-05] MEDS: LEVOTHYROXINE 75 MCG TAB PO SCH (05:59)
[2018-09-05 07:07] LABS: Glucose,Whole Blood 95 mg/dL (75-99)
[2018-09-05] MEDS: INSULIN ASPART 100 UNIT/ML 1 ML 10 ML VIAL SQ SCH ×4 (07:21→20:17)
[2018-09-05] MEDS: ASPIRIN 81 MG PO SCH (07:27)
[2018-09-05] MEDS: ATORVASTATIN 80 MG TAB PO SCH (07:27)
[2018-09-05] MEDS: DULoxetine HCL 60 MG CAPSULE.DR PO SCH (07:27)
[2018-09-05] MEDS: metFORMIN 500 MG TAB PO SCH ×2 (07:27→16:54)
[2018-09-05] MEDS: PANTOPRAZOLE 40 MG TABLET PO SCH ×2 (07:28→16:54)
[2018-09-05] MEDS: VALSARTAN 40 MG TAB PO SCH (07:28)
[2018-09-05] MEDS: MONTELUKAST 10 MG TAB PO SCH (07:28)
[2018-09-05] MEDS: MELOXICAM 7.5 MG TAB PO SCH (07:28)
[2018-09-05] MEDS: INSULIN DETEMIR 100 UNIT/ML 10 ML VIAL SQ SCH (09:01)
[2018-09-05 09:02] LABS: Anisocytosis Slight; Basophils # (A) 0.1 k/uL (0-0.2); Basophils % (A) 1 %; Eosinophils # (A) 0.3 k/uL (0-0.7); Eosinophils % (A) 3 %; HCT 43.4 % (34.0-46.0); HGB 12.8 gm/dL (11.4-16.0); Hypochromasia Moderate; Lymphocytes # (A) 1.6 k/uL (1.0-4.8); Lymphocytes % (A) 15 %; MCH 26.7 pg (25.0-35.0); MCHC 29.6 g/dL (31.0-37.0); MCV 90.2 fL (80.0-100.0); Mean Platelet Volume 6.7; Monocytes # (A) 0.6 k/uL (0-1.0); Monocytes % (A) 6 %; Neutrophils # (A) 7.7 k/uL (1.3-7.7); Neutrophils % (A) 73 %; Platelet Count 276 k/uL (150-450); RBC 4.81 m/uL (3.80-5.40); RDW 16.6 % (11.5-15.5); WBC 10.5 k/uL (3.8-10.6)
[2018-09-05] MEDS: SODIUM CHLORIDE 0.9% 1,000 ML IV SCH (09:03)
[2018-09-05] MEDS: Canagliflozin [Invokana] 100 MG PO SCH (09:03)
[2018-09-05 09:12] LABS: ALT 20 U/L (9-52); AST 20 U/L (14-36); Albumin 3.4 g/dL (3.5-5.0); Alkaline Phosphatase 62 U/L (38-126); Anion Gap 11 mmol/L; Blood Urea Nitrogen 15 mg/dL (7-17); Calcium 9.3 mg/dL (8.4-10.2); Carbon Dioxide 23 mmol/L (22-30); Chloride 102 mmol/L (98-107); Glucose 174 mg/dL (74-99); Potassium 5.1 mmol/L (3.5-5.1); Sodium 136 mmol/L (137-145); Total Bilirubin 0.6 mg/dL (0.2-1.3); Total Protein 6.8 g/dL (6.3-8.2)
[2018-09-05 11:04] LABS: Glucose,Whole Blood 110 mg/dL (75-99)
--- NOTE | 2018-09-05 11:04 | P.PN ---
Subjective Progress Note Date: 09/05/18 This is a 68-year-old female patient of Dr. Rose. Patient presented to the emergency room with complaints of chronic low back pain patient states the pain has been radiating to her left leg. Patient also states she's had recent falls. Per patient her found her and she was disoriented and confused. Patient concerned she may be having a reaction to the morphine she receives through her PainPump for her back pain. Patient states her PainPump was placed by Dr. Lewis. Patient denies any changes to urination or bowel patterns. She has a significant medical history for breast cancer, diabetes mellitus, GERD , hyperlipidemia, hypertension, pneumonia, sleep apnea and chronic back pain. Chest x-ray completed in emergency room showing no active cardiopulmonary disease. No change. EKG completed showing normal sinus rhythm. T-wave abnormality, consider anterior ischemia Patient denies chest pain or shortness breath. At this time patient is complaining of significant left leg pain and weakness. Dr. Hess has been consulted for orthopedic surgery. Pain management also consulted for PainPump. Will perform venous Doppler of left lower extremity and x-ray of left leg. At that time patient denies chest pain or shortness breath. Patient denies nausea vomiting or diarrhea. Patient denies any urinary burning or frequency. On 09/04/2018 patient was seen and examined in the observation unit she is alert and oriented 3 in no apparent distress, she is still complaining of significant pain in the lower back and severe pain in the left lower extremity otherwise she denies any complaint at this time there is no fever or chills no headache or dizziness no chest pain no shortness of breath no cough no nausea or vomiting no abdominal pain no diarrhea and no urinary symptoms On 09/05/2018 patient was seen and examined in the observation unit she is alert and oriented 3 she is still complaining of back pain and left lower extremity pain she was able to ambulate a few steps with physical therapy she needs help to ambulate she is still not ready to be discharged home she states that her pain is improving however she is still in significant amount of pain and having difficulty with her gait. Otherwise she denies any other complaints there is no fever or chills no headache or dizziness no cough no chest pain no shortness of breath no nausea or vomiting no abdominal pain no diarrhea and no urinary symptoms. Objective - Vital Signs Vital signs: Vital Signs Temp 97.9 F 09/05/18 07:58 Pulse 78 09/05/18 07:58 Resp 16 09/05/18 07:58 BP 118/63 09/05/18 07:58 Pulse Ox 98 09/05/18 07:58 Intake & Output 09/04/18 09/05/18 09/05/18 18:59 06:59 18:59 Intake Total 580 Balance 580 Intake: Oral 580 Other: Voiding Method Toilet Toilet Toilet Diaper Diaper Incontinent Incontinent # Voids 1 1 1 - Exam Head normocephalic and atraumatic Neck supple no JVD no goiter Lungs clear to auscultation bilaterally no wheezing or crackles Heart regular rate and rhythm S1-S2, no rub or gallop Abdomen is soft nontender nondistended positive bowel sounds no hepatosplenomegaly Extremities increased left upper leg extremity edema Neuro alert and orientated to 3 - Labs CBC & Chem 7: 09/05/18 08:24 09/05/18 08:24 Labs: Abnormal Lab Results - Last 24 Hours (Table) 09/04/18 09/04/18 09/04/18 Range/Units 11:53 16:36 20:14 MCHC (31.0-37.0) g/dL RDW (11.5-15.5) % Sodium (137-145) mmol/L Glucose (74-99) mg/dL POC Glucose (mg/dL) 102 H 114 H 124 H (75-99) mg/dL Albumin (3.5-5.0) g/dL 09/05/18 09/05/18 Range/Units 08:24 08:24 MCHC 29.6 L (31.0-37.0) g/dL RDW 16.6 H (11.5-15.5) % Sodium 136 L (137-145) mmol/L Glucose 174 H (74-99) mg/dL POC Glucose (mg/dL) (75-99) mg/dL Albumin 3.4 L (3.5-5.0) g/dL Assessment and Plan Plan: 1. Chronic back pain. Concerns for not properly working PainPump. Pain management services have been consulted, awaiting input 2. Left leg pain. Dr. Rojas has been consulted. Venous Doppler has been ordered. X-ray of left knee hip and femur ordered, Doppler is negative for DVT x-rays do not reveal any evidence of bony fracture, pain likely due to lower back etiology with nerve involvement. 3. Mild leukocytosis. Blood cell 12.4. UA negative. Chest x-ray completed showing no active cardiopulmonary disease. No change. Patient denies any symptoms of an acute infection. We'll continue to monitor closely, white blood count today 9.2 4. Diabetes mellitus type 2. Home meds resumed 5. History of GERD 6. History of hyperlipidemia 7. History of essential hypertension 8. History of previous pneumonia 9. History of sleep apnea DVT prophylaxis SCDs until evaluated by surgery. GI prophylaxis Protonix Will consult physical therapy to try to ambulate patient will reassess in a.m. Possible discharge to home tomorrow
[2018-09-05] MEDS: ENOXAPARIN 40 MG/0.4 ML SYRINGE SQ SCH (12:27)
[2018-09-05] MEDS: HYDROcodone/APAP 5-325MG 1 EACH TAB PO PRN (13:59)
[2018-09-05 16:57] LABS: Glucose,Whole Blood 88 mg/dL (75-99)
[2018-09-05 19:07] VITALS: RESP 18
[2018-09-05 19:59] LABS: Glucose,Whole Blood 100 mg/dL (75-99)
[2018-09-06] MEDS: HYDROcodone/APAP 5-325MG 1 EACH TAB PO PRN (05:11)
[2018-09-06] MEDS: LEVOTHYROXINE 75 MCG TAB PO SCH (05:11)
[2018-09-06 07:54] LABS: Glucose,Whole Blood 74 mg/dL (75-99)
[2018-09-06] MEDS: INSULIN ASPART 100 UNIT/ML 1 ML 10 ML VIAL SQ SCH (07:54)
[2018-09-06 07:55] VITALS: BP 104/61; PULSE 82; TEMP 97.8
[2018-09-06] MEDS: SODIUM CHLORIDE 0.9% 1,000 ML IV SCH (07:56)
[2018-09-06] MEDS: MELOXICAM 7.5 MG TAB PO SCH (08:50)
[2018-09-06] MEDS: ATORVASTATIN 80 MG TAB PO SCH (08:50)
[2018-09-06] MEDS: DULoxetine HCL 60 MG CAPSULE.DR PO SCH (08:50)
[2018-09-06] MEDS: VALSARTAN 40 MG TAB PO SCH (08:50)
[2018-09-06] MEDS: PANTOPRAZOLE 40 MG TABLET PO SCH (08:50)
[2018-09-06] MEDS: MONTELUKAST 10 MG TAB PO SCH (08:50)
[2018-09-06] MEDS: metFORMIN 500 MG TAB PO SCH (08:50)
[2018-09-06] MEDS: ASPIRIN 81 MG PO SCH (08:50)
[2018-09-06] MEDS: ENOXAPARIN 40 MG/0.4 ML SYRINGE SQ SCH (08:51)
[2018-09-06] MEDS: Canagliflozin [Invokana] 100 MG PO SCH (08:52)
[2018-09-06 09:55] LABS: Anisocytosis Slight; Basophils # (A) 0.1 k/uL (0-0.2); Basophils % (A) 1 %; Eosinophils # (A) 0.4 k/uL (0-0.7); Eosinophils % (A) 3 %; HGB 14.1 gm/dL (11.4-16.0); Hypochromasia Slight; Lymphocytes # (A) 2.3 k/uL (1.0-4.8); Lymphocytes % (A) 22 %; MCH 28.4 pg (25.0-35.0); MCHC 32.1 g/dL (31.0-37.0); MCV 88.6 fL (80.0-100.0); Mean Platelet Volume 7.1; Monocytes # (A) 0.7 k/uL (0-1.0); Monocytes % (A) 6 %; Neutrophils # (A) 6.8 k/uL (1.3-7.7); Neutrophils % (A) 65 %; Platelet Count 291 k/uL (150-450); RBC 4.97 m/uL (3.80-5.40); RDW 16.5 % (11.5-15.5); WBC 10.4 k/uL (3.8-10.6)
[2018-09-06 09:57] LABS: ALT 25 U/L (9-52); AST 24 U/L (14-36); Albumin 3.8 g/dL (3.5-5.0); Alkaline Phosphatase 74 U/L (38-126); Anion Gap 10 mmol/L; Blood Urea Nitrogen 14 mg/dL (7-17); Calcium 9.8 mg/dL (8.4-10.2); Carbon Dioxide 27 mmol/L (22-30); Chloride 101 mmol/L (98-107); Glucose 120 mg/dL (74-99); Potassium 4.8 mmol/L (3.5-5.1); Sodium 138 mmol/L (137-145); Total Bilirubin 0.7 mg/dL (0.2-1.3); Total Protein 7.4 g/dL (6.3-8.2)
--- NOTE | 2018-09-06 11:20 | P.DS ---
Providers Date of admission: 09/03/18 07:26 Expected date of discharge: 09/06/18 Attending physician: Lexie Craven Consults: 09/03/18 07:27 Consult Physician Routine Consulting Provider: Bronson Rojas Consult Reason/Comments: Intractable back pain Do you want consulting provider notified?: Yes Primary care physician: Annelise Rose [facility] Course: Discharge diagnosis 1. Acute Chronic lower back pain. Resolved. Follow-up with Dr. Andrade her pain doctor in the outpatient setting. 2. Left leg pain. Patient seen evaluated by Dr. Rojas. No intervention required. X-ray of left knee hip and femur ordered, Doppler is negative for DVT x-rays do not reveal any evidence of bony fracture, pain likely due to lower back etiology with nerve involvement. 3. Mild leukocytosis. Likely reactive. Resolved without antibiotics. Blood cell 12.4. UA negative. Chest x-ray completed showing no active cardiopulmonary disease. No change. Patient denies any symptoms of an acute infection. We'll continue to monitor closely, white blood count today 9.2 4. Diabetes mellitus type 2. Home meds resumed 5. History of GERD 6. History of hyperlipidemia 7. History of essential hypertension 8. History of previous pneumonia 9. History of sleep apnea Hospital course This is a 68-year-old female patient of Dr. Rose. Patient presented to the emergency room with complaints of chronic low back pain patient states the pain has been radiating to her left leg. Patient also states she's had recent falls. Per patient her found her and she was disoriented and confused. Patient concerned she may be having a reaction to the morphine she receives through her PainPump for her back pain. Patient states her PainPump was placed by Dr. Lewis. Patient denies any changes to urination or bowel patterns. She has a significant medical history for breast cancer, diabetes mellitus, GERD , hyperlipidemia, hypertension, pneumonia, sleep apnea and chronic back pain. Chest x-ray completed in emergency room showing no active cardiopulmonary disease. No change. EKG completed showing normal sinus rhythm. T-wave abnormality, consider anterior ischemia Patient denies chest pain or shortness breath. At this time patient is complaining of significant left leg pain and weakness. Dr. Hess has been consulted for orthopedic surgery. Pain management also consulted for PainPump. Will perform venous Doppler of left lower extremity and x-ray of left leg. At that time patient denies chest pain or shortness breath. Patient denies nausea vomiting or diarrhea. Patient denies any urinary burning or frequency. On 09/04/2018 patient was seen and examined in the observation unit she is alert and oriented 3 in no apparent distress, she is still complaining of significant pain in the lower back and severe pain in the left lower extremity otherwise she denies any complaint at this time there is no fever or chills no headache or dizziness no chest pain no shortness of breath no cough no nausea or vomiting no abdominal pain no diarrhea and no urinary symptoms On 09/05/2018 patient was seen and examined in the observation unit she is alert and oriented 3 she is still complaining of back pain and left lower extremity pain she was able to ambulate a few steps with physical therapy she needs help to ambulate she is still not ready to be discharged home she states that her pain is improving however she is still in significant amount of pain and having difficulty with her gait. Otherwise she denies any other complaints there is no fever or chills no headache or dizziness no cough no chest pain no shortness of breath no nausea or vomiting no abdominal pain no diarrhea and no urinary symptoms. 09/06/2018 patient's pain has improved greatly. She has been up and ambulating without difficulty. She is eager for discharge home. She'll follow-up with Dr. Andrade for pain management in the outpatient setting. Pain service did not evaluate patient during this admission her symptoms had improved. Patient has been using [place] during this admission. She reports that she has a prescription for [place] at home that she still has enough medication. She also can use the Ultram as needed. There were concerns of the pain pop not properly working. Again she'll follow-up with her pain service doctor this week. Patient is medically stable for discharge. Also her follow-up with her PCP in the next 3 days. Please refer to chart for any further details I performed an examination of the patient and discussed their management with the physician [employer]. I have reviewed the Physician [employer]'s notes and agree with the documented findings and plan of care Patient Condition at Discharge: Stable Plan - Discharge Summary Discharge Rx Participant: No New Discharge Prescriptions: Continue Aspirin EC [Ecotrin Low Dose] 81 mg PO DAILY Esomeprazole Magnesium [NexIUM] 40 mg PO BID Liraglutide [Victoza 2-Dread] 1.8 mg SQ DAILY Methocarbamol [Robaxin] 500 mg PO BID PRN PRN Reason: Pain traMADol HCL [Ultram] 50 mg PO DAILY PRN PRN Reason: Pain Rosuvastatin Calcium [Crestor] 40 mg PO DAILY Levothyroxine Sodium [Synthroid] 75 mcg PO DAILY Insulin Glargine [Lantus] 50 unit SQ DAILY Valsartan [Diovan] 40 mg PO DAILY Celecoxib [CeleBREX] 200 mg PO DAILY Canagliflozin [Invokana] 100 mg PO DAILY Montelukast [Singulair] 10 mg PO DAILY Mirabegron [Myrbetriq] 50 mg PO DAILY DULoxetine HCL [Cymbalta] 60 mg PO DAILY Nocdurna 27.7 mcg SUBLINGUAL HS metFORMIN HCL 1,000 mg PO BID Morphine Pain Pump 1 dose INTRATHECA DIRECTED Discontinued Amoxicillin/Potassium Clav [Augmentin 875-125 Tablet] 1 tab PO Q12HR #20 tab Discharge Medication List Aspirin EC [Ecotrin Low Dose] 81 mg PO DAILY 04/22/16 [History] Esomeprazole Magnesium [NexIUM] 40 mg PO BID 04/22/16 [History] Liraglutide [Victoza 2-Dread] 1.8 mg SQ DAILY 04/22/16 [History] Methocarbamol [Robaxin] 500 mg PO BID PRN 04/22/16 [History] traMADol HCL [Ultram] 50 mg PO DAILY PRN 04/22/16 [History] Rosuvastatin Calcium [Crestor] 40 mg PO DAILY 06/02/16 [History] Insulin Glargine [Lantus] 50 unit SQ DAILY 11/01/17 [History] Levothyroxine Sodium [Synthroid] 75 mcg PO DAILY 11/01/17 [History] Canagliflozin [Invokana] 100 mg PO DAILY 06/21/18 [History] Celecoxib [CeleBREX] 200 mg PO DAILY 06/21/18 [History] DULoxetine HCL [Cymbalta] 60 mg PO DAILY 06/21/18 [History] Mirabegron [Myrbetriq] 50 mg PO DAILY 06/21/18 [History] Montelukast [Singulair] 10 mg PO DAILY 06/21/18 [History] Valsartan [Diovan] 40 mg PO DAILY 06/21/18 [History] Morphine Pain Pump 1 dose INTRATHECA DIRECTED 08/20/18 [History] Nocdurna 27.7 mcg SUBLINGUAL HS 08/20/18 [History] metFORMIN HCL 1,000 mg PO BID 08/20/18 [History] Follow up Appointment(s)/Referral(s): Annelise Rose DO [Primary Care Provider] - 3 Days Starr Andrade MD [Medical Doctor] - 1 Week Activity/Diet/Wound Care/Special Instructions: Diet: cardiac, diabetic Activity: as tolerated Discharge Disposition: HOME SELF-CARE
== END 2018-09-06 13:13 | disposition home or self-care (01) ==
LOC: EC 02:36 → 1SOBS 07:26 → 4MS4W 09-05 23:19
PROVIDERS: ADMIT Internal Medicine; ATTEND Internal Medicine
DX: M54.5 Low back pain (principal); G89.29 Other chronic pain; M79.605 Pain in left leg; D72.829 Elevated white blood cell count, unspecified; E11.9 Type 2 diabetes mellitus without complications; K21.9 Gastro-esophageal reflux disease without esophagitis; E78.5 Hyperlipidemia, unspecified; M54.10 Radiculopathy, site unspecified; E03.9 Hypothyroidism, unspecified; I10 Essential (primary) hypertension; G47.33 Obstructive sleep apnea (adult) (pediatric); E66.9 Obesity, unspecified; Z68.32 Body mass index [BMI] 32.0-32.9, adult; Z87.01 Personal history of pneumonia (recurrent); Z79.4 Long term (current) use of insulin; Z79.82 Long term (current) use of aspirin; Z79.890 Hormone replacement therapy; Z79.899 Other long term (current) drug therapy; Z99.89 Dependence on other enabling machines and devices; Z97.8 Presence of other specified devices; Z98.1 Arthrodesis status; Z85.3 Personal history of malignant neoplasm of breast; Z90.12 Acquired absence of left breast and nipple; Z98.82 Breast implant status; Z90.710 Acquired absence of both cervix and uterus; Z80.0 Family history of malignant neoplasm of digestive organs; Z80.6 Family history of leukemia; Z79.891 Long term (current) use of opiate analgesic; Z86.14 Personal history of Methicillin resistant Staphylococcus aureus infection; Z91.81 History of falling; Z88.2 Allergy status to sulfonamides
CPT/HCPCS: 96372 ×2; 96374; 99285; 36415; 94760; 93005; 97162; 80053 ×4; 82550; 82553; 83605; 83735; 84484; 85025 ×4; 85610; 85730; 81003; 83036; 73502; 73552; 73562; 71045; 93970; G0378 ×4; J1650 ×2; J1885

== ENCOUNTER 2018-09-15 13:21 | Emergency (ER) | payer MEDICARE, OTHER ==
[2018-09-15] MEDS ORDERED: SODIUM CHLORIDE 0.9% 1,000 ML IV STA (13:29)
[2018-09-15] MEDS ORDERED: ONDANSETRON 4 MG/2 ML VIAL IVP STA (13:29)
[2018-09-15 14:15] LABS: Basophils # (A) 0.1 k/uL (0-0.2); Basophils % (A) 1 %; Eosinophils # (A) 0.2 k/uL (0-0.7); Eosinophils % (A) 2 %; HCT 45.9 % (34.0-46.0); HGB 14.5 gm/dL (11.4-16.0); Lymphocytes # (A) 1.9 k/uL (1.0-4.8); Lymphocytes % (A) 19 %; MCHC 31.7 g/dL (31.0-37.0); MCV 88.5 fL (80.0-100.0); Mean Platelet Volume 6.3; Monocytes # (A) 0.5 k/uL (0-1.0); Monocytes % (A) 6 %; Neutrophils # (A) 6.9 k/uL (1.3-7.7); Neutrophils % (A) 71 %; Platelet Count 337 k/uL (150-450); RBC 5.19 m/uL (3.80-5.40); RDW 15.9 % (11.5-15.5); WBC 9.7 k/uL (3.8-10.6)
[2018-09-15] MEDS ORDERED: diphenhydrAMINE 50 MG/ML 1 ML VIAL IVP STA (14:16)
[2018-09-15] MEDS ORDERED: PROMETHAZINE INJ 25 MG in SODIUM CHLORIDE 0.9% 50 ML IVPB STA (14:16)
[2018-09-15] MEDS ORDERED: SODIUM CHLORIDE 0.9% 1,000 ML IV ONE (14:17)
[2018-09-15 14:20] LABS: Appearance,Urine Cloudy (Clear); Bilirubin,Urine Negative (Negative); Blood,Urine Negative (Negative); Color,Urine Yellow; Glucose,Urine (UA) Negative (Negative); Hyaline Casts,Urine 23 /lpf (0-2); Ketones,Urine Negative (Negative); Leukocyte Esterase,Urine Large (Negative); Mucus,Urine Many /hpf; Nitrite,Urine Negative (Negative); PH, Urine 7.5 (5.0-8.0); Protein,Urine 1+ (Negative); RBC,Urine 4 /hpf (0-5); Specific Gravity,Urine 1.016 (1.001-1.035); Squamous Epithelial Cell,Urine 21 /hpf (0-4); WBC,Urine 27 /hpf (0-5)
[2018-09-15 14:32] LABS: INR 1.1 (<1.2); Partial Thromboplastin Time 24.8 sec (22.0-30.0); Prothrombin Time 11.2 sec (9.0-12.0)
[2018-09-15 14:33] LABS: ALT 29 U/L (9-52); AST 37 U/L (14-36); Albumin 4.3 g/dL (3.5-5.0); Alkaline Phosphatase 90 U/L (38-126); Amylase 33 U/L (30-110); Anion Gap 11 mmol/L; Blood Urea Nitrogen 11 mg/dL (7-17); Calcium 10.7 mg/dL (8.4-10.2); Carbon Dioxide 32 mmol/L (22-30); Chloride 97 mmol/L (98-107); Glucose 136 mg/dL (74-99); Lipase 66 U/L (23-300); Potassium 3.8 mmol/L (3.5-5.1); Sodium 140 mmol/L (137-145); Total Bilirubin 0.8 mg/dL (0.2-1.3); Total Protein 8.3 g/dL (6.3-8.2)
[2018-09-15 14:40] VITALS: RESP 18
[2018-09-15] MEDS ORDERED: PANTOPRAZOLE 40 MG/10 ML VIAL IVP STA (14:43)
--- NOTE | 2018-09-15 14:43 | ED ---
Nausea/Vomiting/Diarrhea HPI - General Chief complaint: Nausea/Vomiting/Diarrhea Stated complaint: Vomiting blood Time Seen by Provider: 09/15/18 13:29 Source: patient, RN notes reviewed Mode of arrival: ambulatory Limitations: no limitations - History of Present Illness Initial comments: 68-year-old female presents emergency Department with chief complaint of nausea vomiting dehydration, weight loss. Patient states she has been sick for last several weeks secondary to morphine pump placed by Dr. Andrade. Patient has been inpatient twice. Patient states that she continues to vomit cannot keep any down and states that she was some blood today. Patient states that she has not had follow-up with Dr. Andrade sense because she's been in the hospital. She denies any current chest pain, fever or chills. - Related Data Home Medications Medication Instructions Recorded Confirmed Aspirin EC [Ecotrin Low Dose] 81 mg PO DAILY 04/22/16 09/15/18 Esomeprazole Magnesium [NexIUM] 40 mg PO BID 04/22/16 09/15/18 Liraglutide [Victoza 2-Dread] 1.8 mg SQ DAILY 04/22/16 09/15/18 Methocarbamol [Robaxin] 500 mg PO BID PRN 04/22/16 09/15/18 traMADol HCL [Ultram] 50 mg PO DAILY PRN 04/22/16 09/15/18 Rosuvastatin Calcium [Crestor] 40 mg PO DAILY 06/02/16 09/15/18 Insulin Glargine [Lantus] 50 unit SQ DAILY 11/01/17 09/15/18 Levothyroxine Sodium [Synthroid] 75 mcg PO DAILY 11/01/17 09/15/18 Canagliflozin [Invokana] 100 mg PO DAILY 06/21/18 09/15/18 Celecoxib [CeleBREX] 200 mg PO DAILY 06/21/18 09/15/18 DULoxetine HCL [Cymbalta] 60 mg PO DAILY 06/21/18 09/15/18 Mirabegron [Myrbetriq] 50 mg PO DAILY 06/21/18 09/15/18 Montelukast [Singulair] 10 mg PO DAILY 06/21/18 09/15/18 Valsartan [Diovan] 40 mg PO DAILY 06/21/18 09/15/18 Nocdurna 27.7 mcg SUBLINGUAL HS 08/20/18 09/15/18 metFORMIN HCL 1,000 mg PO BID 08/20/18 09/15/18 Ibuprofen [Motrin Ib] 200 mg PO Q6H PRN 09/15/18 09/15/18 Previous Rx's Medication Instructions Recorded Prochlorperazine Suppository 25 mg RECTAL BID #3 supp 09/15/18 [Compazine] Allergies Allergy/AdvReac Type Severity Reaction Status Date / Time codeine Allergy Unknown Verified 09/15/18 14:10 neomycin Allergy Itching Verified 09/15/18 14:09 Sulfa (Sulfonamide Allergy Dyspnea Verified 09/15/18 14:09 Antibiotics) sulfamethoxazole Allergy Dyspnea Verified 09/15/18 14:09 [From ] trimethoprim [From ] Allergy Dyspnea Verified 09/15/18 14:09 morphine AdvReac Itching Verified 09/15/18 14:09 Review of Systems ROS Statement: Those systems with pertinent positive or pertinent negative responses have been documented in the HPI. ROS Other: All systems not noted in ROS Statement are negative. Past Medical History Past Medical History: Cancer, Diabetes Mellitus, GERD/Reflux, Hyperlipidemia, Hypertension, Pneumonia, Sleep Apnea/CPAP/BIPAP Additional Past Medical History / Comment(s): Pt recently admitted 08/22/18 with pneumonia/sepsis possible aspiration pne, N/V, UTI, hyperkalemia and constipation. Other Hx: IDDM type II, chronic low back pain radiates to L leg/has pain pump, herniated discs, colitis, black stools, L breast cancer with mastectomy, irregular heart beat once, JANENE with Cpap, dysphagia, hypothyroid, constipation. History of Any Multi-Drug Resistant Organisms: MRSA Date of last positivie culture/infection: 04/02/17 MDRO Source:: URINE Past Surgical History: Back Surgery, Breast Surgery, Cholecystectomy, Hysterectomy Additional Past Surgical History / Comment(s): Lt Mastectomy W/ RECONSTRUCTION; RT BREAST IMPLANT. SINUS SURG X3., colonoscopy, pain pump implant Past Anesthesia/Blood Transfusion Reactions: Previous Problems w/ Anesthesia Additional Past Anesthesia/Blood Transfusion Reaction / Comment(s): HX OF DAMAGE TO VOCAL CORDS POST-OP BACK SURGERY Past Psychological History: No Psychological Hx Reported Smoking Status: Never smoker Past Alcohol Use History: None Reported Past Drug Use History: None Reported - Past Family History Father Sister(s) Family Medical History: Cancer Additional Family Medical History / Comment(s): Father had leukemia and sister had pancreatic cancer. Brother(s) Family Medical History: Cancer Additional Family Medical History / Comment(s): Prostate cancer, ANEURYSM Mother Family Medical History: No Reported History Additional Family Medical History / Comment(s): Mother was healthy. General Exam Limitations: no limitations General appearance: alert, in no apparent distress Head exam: Present: atraumatic, normocephalic, normal inspection Eye exam: Present: normal appearance, PERRL, EOMI. Absent: scleral icterus, conjunctival injection, periorbital swelling ENT exam: Present: normal exam, normal oropharynx, mucous membranes moist Neck exam: Present: normal inspection, full ROM. Absent: tenderness, meningismus, lymphadenopathy Respiratory exam: Present: normal lung sounds bilaterally. Absent: respiratory distress, wheezes, rales, rhonchi, stridor Cardiovascular Exam: Present: regular rate, normal rhythm, normal heart sounds. Absent: systolic murmur, diastolic murmur, rubs, gallop, clicks GI/Abdominal exam: Present: soft, tenderness (Mild diffuse), normal bowel sounds. Absent: distended, guarding, rebound, rigid Back exam: Absent: CVA tenderness (R), CVA tenderness (L) Skin exam: Present: warm, dry, intact, normal color. Absent: rash Course Vital Signs 09/15/18 09/15/18 09/15/18 13:24 14:00 16:30 Temperature 97.9 F Pulse Rate 90 77 76 Respiratory 16 18 18 Rate Blood Pressure 139/88 102/56 98/52 O2 Sat by Pulse 95 91 L 92 L Oximetry Medical Decision Making - Medical Decision Making 68-year-old female presented for continued nausea vomiting. Patient's symptoms related to her morphine pump. Patient also has a sensation of difficulty swallowing though she had a video swallow screen which was negative for stricture or aspiration. Patient is improved after Phenergan. Patient does have prescription waiting for her at the pharmacy though it's not to come until tomorrow for suppositories patient be given Compazine suppositories that may be filled at hospital pharmacy in which they do have in stock. Patient is comfortable with this discharge return parameters were discussed. - Lab Data Result diagrams: 09/15/18 13:45 09/15/18 13:45 Lab Results 09/15/18 09/15/18 09/15/18 Range/Units 13:45 13:45 13:45 WBC 9.7 (3.8-10.6) k/uL RBC 5.19 (3.80-5.40) m/uL Hgb 14.5 (11.4-16.0) gm/dL Hct 45.9 (34.0-46.0) % MCV 88.5 (80.0-100.0) fL MCH 28.0 (25.0-35.0) pg MCHC 31.7 (31.0-37.0) g/dL RDW 15.9 H (11.5-15.5) % Plt Count 337 (150-450) k/uL Neutrophils % 71 % Lymphocytes % 19 % Monocytes % 6 % Eosinophils % 2 % Basophils % 1 % Neutrophils # 6.9 (1.3-7.7) k/uL Lymphocytes # 1.9 (1.0-4.8) k/uL Monocytes # 0.5 (0-1.0) k/uL Eosinophils # 0.2 (0-0.7) k/uL Basophils # 0.1 (0-0.2) k/uL PT (9.0-12.0) sec INR (<1.2) APTT (22.0-30.0) sec Sodium 140 (137-145) mmol/L Potassium 3.8 (3.5-5.1) mmol/L Chloride 97 L (98-107) mmol/L Carbon Dioxide 32 H (22-30) mmol/L Anion Gap 11 mmol/L BUN 11 (7-17) mg/dL Creatinine 0.79 (0.52-1.04) mg/dL Est GFR (CKD-EPI)AfAm >90 (>60 ml/min/1.73 sqM) Est GFR (CKD-EPI)NonAf 78 (>60 ml/min/1.73 sqM) Glucose 136 H (74-99) mg/dL Plasma Lactic Acid Adan 1.6 (0.7-2.0) mmol/L Calcium 10.7 H (8.4-10.2) mg/dL Magnesium (1.6-2.3) mg/dL Total Bilirubin 0.8 (0.2-1.3) mg/dL AST 37 H (14-36) U/L ALT 29 (9-52) U/L Alkaline Phosphatase 90 (38-126) U/L Total Protein 8.3 H (6.3-8.2) g/dL Albumin 4.3 (3.5-5.0) g/dL Amylase 33 (30-110) U/L Lipase 66 (23-300) U/L Urine Color Urine Appearance (Clear) Urine pH (5.0-8.0) Ur Specific [place] (1.001-1.035) Urine Protein (Negative) Urine Glucose (UA) (Negative) Urine Ketones (Negative) Urine Blood (Negative) Urine Nitrite (Negative) Urine Bilirubin (Negative) Urine Urobilinogen (<2.0) mg/dL Ur Leukocyte Esterase (Negative) Urine RBC (0-5) /hpf Urine WBC (0-5) /hpf Ur Squamous Epith Cells (0-4) /hpf Hyaline Casts (0-2) /lpf Urine Mucus (None) /hpf 09/15/18 09/15/18 09/15/18 Range/Units 13:45 13:45 13:45 WBC (3.8-10.6) k/uL RBC (3.80-5.40) m/uL Hgb (11.4-16.0) gm/dL Hct (34.0-46.0) % MCV (80.0-100.0) fL MCH (25.0-35.0) pg MCHC (31.0-37.0) g/dL RDW (11.5-15.5) % Plt Count (150-450) k/uL Neutrophils % % Lymphocytes % % Monocytes % % Eosinophils % % Basophils % % Neutrophils # (1.3-7.7) k/uL Lymphocytes # (1.0-4.8) k/uL Monocytes # (0-1.0) k/uL Eosinophils # (0-0.7) k/uL Basophils # (0-0.2) k/uL PT 11.2 (9.0-12.0) sec INR 1.1 (<1.2) APTT 24.8 (22.0-30.0) sec Sodium (137-145) mmol/L Potassium (3.5-5.1) mmol/L Chloride (98-107) mmol/L Carbon Dioxide (22-30) mmol/L Anion Gap mmol/L BUN (7-17) mg/dL Creatinine (0.52-1.04) mg/dL Est GFR (CKD-EPI)AfAm (>60 ml/min/1.73 sqM) Est GFR (CKD-EPI)NonAf (>60 ml/min/1.73 sqM) Glucose (74-99) mg/dL Plasma Lactic Acid Adan (0.7-2.0) mmol/L Calcium (8.4-10.2) mg/dL Magnesium 1.6 (1.6-2.3) mg/dL Total Bilirubin (0.2-1.3) mg/dL AST (14-36) U/L ALT (9-52) U/L Alkaline Phosphatase (38-126) U/L Total Protein (6.3-8.2) g/dL Albumin (3.5-5.0) g/dL Amylase (30-110) U/L Lipase (23-300) U/L Urine Color Yellow Urine Appearance Cloudy H (Clear) Urine pH 7.5 (5.0-8.0) Ur Specific [place] 1.016 (1.001-1.035) Urine Protein 1+ H (Negative) Urine Glucose (UA) Negative (Negative) Urine Ketones Negative (Negative) Urine Blood Negative (Negative) Urine Nitrite Negative (Negative) Urine Bilirubin Negative (Negative) Urine Urobilinogen 3.0 (<2.0) mg/dL Ur Leukocyte Esterase Large H (Negative) Urine RBC 4 (0-5) /hpf Urine WBC 27 H (0-5) /hpf Ur Squamous Epith Cells 21 H (0-4) /hpf Hyaline Casts 23 H (0-2) /lpf Urine Mucus Many H (None) /hpf Disposition Clinical Impression: Nausea & vomiting, Globus sensation Disposition: HOME SELF-CARE Condition: Stable Instructions (If sedation given, give patient instructions): Acute Nausea and Vomiting (ED) Additional Instructions: Please return to the Emergency Department if symptoms worsen or any other concerns. Prescriptions: Prochlorperazine Suppository [Compazine] 25 mg RECTAL BID #3 supp Is patient prescribed a controlled substance at d/c from ED?: No Referrals: Annelise Rose DO [Primary Care Provider] - 1-2 days Eliceo Snow MD [STAFF PHYSICIAN] - 1-2 days Time of Disposition: 16:52
[2018-09-15 16:33] VITALS: BP 98/52; PULSE 76
[2018-09-15 17:11] VITALS: TEMP 98
== END 2018-09-15 17:10 | disposition home or self-care (01) ==
LOC: EC 13:21
DX: F45.8 Other somatoform disorders (principal); R11.2 Nausea with vomiting, unspecified; R63.4 Abnormal weight loss; E86.0 Dehydration; E78.5 Hyperlipidemia, unspecified; I10 Essential (primary) hypertension; E11.9 Type 2 diabetes mellitus without complications; K21.9 Gastro-esophageal reflux disease without esophagitis; G89.29 Other chronic pain; G47.33 Obstructive sleep apnea (adult) (pediatric); E03.9 Hypothyroidism, unspecified; Z88.1 Allergy status to other antibiotic agents; Z88.2 Allergy status to sulfonamides; Z88.5 Allergy status to narcotic agent; Z79.1 Long term (current) use of non-steroidal anti-inflammatories (NSAID); Z79.4 Long term (current) use of insulin; Z79.82 Long term (current) use of aspirin; Z79.890 Hormone replacement therapy; Z79.899 Other long term (current) drug therapy; Z86.14 Personal history of Methicillin resistant Staphylococcus aureus infection; Z85.3 Personal history of malignant neoplasm of breast; Z90.12 Acquired absence of left breast and nipple; Z90.49 Acquired absence of other specified parts of digestive tract; Z98.82 Breast implant status; Z96.89 Presence of other specified functional implants; Z99.89 Dependence on other enabling machines and devices; Z80.0 Family history of malignant neoplasm of digestive organs
CPT/HCPCS: 36415; 80053; 82150; 83605; 83690; 83735; 85025; 85610; 85730; 81001; 99284; 96374; 96375 ×3; 96361 ×3; J1200; J2550; J2405; C9113

== ENCOUNTER 2018-09-17 16:44 | Observation (INO) | payer MEDICARE, OTHER ==
[2018-09-17] MEDS ORDERED: SODIUM CHLORIDE 0.9% 1,000 ML IV STA (17:18)
[2018-09-17] MEDS ORDERED: diphenhydrAMINE 50 MG/ML 1 ML VIAL IVP STA (17:18)
[2018-09-17] MEDS ORDERED: PROMETHAZINE INJ 25 MG in SODIUM CHLORIDE 0.9% 50 ML IVPB STA (17:23)
--- NOTE | 2018-09-17 17:38 | ED ---
Nausea/Vomiting/Diarrhea HPI - General Chief complaint: Nausea/Vomiting/Diarrhea Stated complaint: vomiting Time Seen by Provider: 09/17/18 17:03 Source: patient Mode of arrival: ambulatory Limitations: no limitations - History of Present Illness Initial comments: 68-year-old female patient presents to the emergency department today for evaluation of vomiting. The patient states that she had a pain pump surgically implanted at the beginning of August and since and has been having difficulty with vomiting since. Patient states she has several episodes of vomiting daily and is unable to keep down any food or fluids. Patient states she is feeling weak and dehydrated from this. Patient has had several visits to the emergency department for similar symptoms. States her last visit did give her prescription for suppositories. States she has been using them but they're not helping. Patient states she did speak to her rehab office coordinator today who wants perform an upper endoscopy scope, states that she recommended she be admitted to the hospital to have the scope done as an inpatient. Patient say she has felt feverish or chilled but has had normal temperatures on the thermometer. She denies any constipation or diarrhea. She denies any hematemesis. States her last bowel movement was 4 days ago. Patient states she has been having a little chest discomfort as well. She denies any dizziness or weakness. Denies any sweats. Patient denies any recent rash, shortness breath, numbness, tingling, weakness, hematuria, dysuria, urinary urgency, urinary frequency, headache, visual changes, or any other complaints. - Related Data Home Medications Medication Instructions Recorded Confirmed Aspirin EC [Ecotrin Low Dose] 81 mg PO DAILY 04/22/16 09/17/18 Esomeprazole Magnesium [NexIUM] 40 mg PO BID 04/22/16 09/17/18 Liraglutide [Victoza 2-Dread] 1.8 mg SQ DAILY 04/22/16 09/17/18 Methocarbamol [Robaxin] 500 mg PO BID PRN 04/22/16 09/17/18 traMADol HCL [Ultram] 50 mg PO DAILY PRN 04/22/16 09/17/18 Rosuvastatin Calcium [Crestor] 40 mg PO DAILY 06/02/16 09/17/18 Insulin Glargine [Lantus] 50 unit SQ DAILY 11/01/17 09/17/18 Levothyroxine Sodium [Synthroid] 75 mcg PO DAILY 11/01/17 09/17/18 Canagliflozin [Invokana] 100 mg PO DAILY 06/21/18 09/17/18 Celecoxib [CeleBREX] 200 mg PO DAILY 06/21/18 09/17/18 DULoxetine HCL [Cymbalta] 60 mg PO DAILY 06/21/18 09/17/18 Mirabegron [Myrbetriq] 50 mg PO DAILY 06/21/18 09/17/18 Montelukast [Singulair] 10 mg PO DAILY 06/21/18 09/17/18 Valsartan [Diovan] 40 mg PO DAILY 06/21/18 09/17/18 Nocdurna 27.7 mcg SUBLINGUAL HS 08/20/18 09/17/18 metFORMIN HCL 1,000 mg PO BID 08/20/18 09/17/18 Ibuprofen [Motrin Ib] 200 mg PO Q6H PRN 09/15/18 09/17/18 Prochlorperazine Suppository 25 mg RECTAL BID PRN 09/17/18 09/17/18 [Compazine] Allergies Allergy/AdvReac Type Severity Reaction Status Date / Time codeine Allergy Unknown Verified 09/17/18 17:37 neomycin Allergy Itching Verified 09/17/18 17:37 Sulfa (Sulfonamide Allergy Dyspnea Verified 09/17/18 17:37 Antibiotics) sulfamethoxazole Allergy Dyspnea Verified 09/17/18 17:37 [From ] trimethoprim [From ] Allergy Dyspnea Verified 09/17/18 17:37 morphine AdvReac Itching Verified 09/17/18 17:37 Review of Systems ROS Statement: Those systems with pertinent positive or pertinent negative responses have been documented in the HPI. ROS Other: All systems not noted in ROS Statement are negative. Past Medical History Past Medical History: Cancer, Diabetes Mellitus, GERD/Reflux, Hyperlipidemia, Hypertension, Pneumonia, Sleep Apnea/CPAP/BIPAP Additional Past Medical History / Comment(s): Pt recently admitted 08/22/18 with pneumonia/sepsis possible aspiration pne, N/V, UTI, hyperkalemia and constipation. Other Hx: IDDM type II, chronic low back pain radiates to L leg/has pain pump, herniated discs, colitis, black stools, L breast cancer with mastectomy, irregular heart beat once, JANENE with Cpap, dysphagia, hypothyroid, constipation. History of Any Multi-Drug Resistant Organisms: MRSA Date of last positivie culture/infection: 04/02/17 MDRO Source:: URINE Past Surgical History: Back Surgery, Breast Surgery, Cholecystectomy, Hysterectomy Additional Past Surgical History / Comment(s): Lt Mastectomy W/ RECONSTRUCTION; RT BREAST IMPLANT. SINUS SURG X3., colonoscopy, pain pump implant Past Anesthesia/Blood Transfusion Reactions: Previous Problems w/ Anesthesia Additional Past Anesthesia/Blood Transfusion Reaction / Comment(s): HX OF DAMAGE TO VOCAL CORDS POST-OP BACK SURGERY Past Psychological History: No Psychological Hx Reported Smoking Status: Never smoker Past Alcohol Use History: None Reported Past Drug Use History: None Reported - Past Family History Father Sister(s) Family Medical History: Cancer Additional Family Medical History / Comment(s): Father had leukemia and sister had pancreatic cancer. Brother(s) Family Medical History: Cancer Additional Family Medical History / Comment(s): Prostate cancer, ANEURYSM Mother Family Medical History: No Reported History Additional Family Medical History / Comment(s): Mother was healthy. General Exam Limitations: no limitations General appearance: alert, in no apparent distress, other (Physical well- developed, well-nourished adult female patient in no acute distress. Vital signs upon presentation are temperature 98.1F, pulse 85, respirations 20, blood pressure 143/90, pulse ox 94% on room air.) Eye exam: Present: normal appearance, PERRL, EOMI. Absent: scleral icterus, conjunctival injection, periorbital swelling ENT exam: Present: normal exam, normal oropharynx, mucous membranes moist Respiratory exam: Present: normal lung sounds bilaterally. Absent: respiratory distress, wheezes, rales, rhonchi, stridor Cardiovascular Exam: Present: regular rate, normal rhythm, normal heart sounds. Absent: systolic murmur, diastolic murmur, rubs, gallop, clicks GI/Abdominal exam: Present: soft, tenderness (Midepigastric tenderness), normal bowel sounds. Absent: distended, guarding, rebound, rigid Neurological exam: Present: alert, oriented X3, CN II-XII intact Psychiatric exam: Present: normal affect, normal mood Skin exam: Present: warm, dry, intact, normal color. Absent: rash Course Vital Signs 09/17/18 16:58 Temperature 98.1 F Pulse Rate 85 Respiratory 20 Rate Blood Pressure 143/90 O2 Sat by Pulse 94 L Oximetry Medical Decision Making - Medical Decision Making 68-year-old female patient who has been having intractable nausea and vomiting since having a pain stimulator placed at the beginning of August. Physical examination does reveal midepigastric tenderness. The patient was instructed by her rehab office coordinator to come to the hospital and be admitted to she can have an inpatient upper endoscopy performed. Labs reviewed and are relatively unremarkable. Patient does feel somewhat improved after receiving medications here in the emergency department. We'll admit for intractable nausea and vomiting. We'll consult GI. Dr. Craven is agreeable. - Lab Data Result diagrams: 09/17/18 18:12 09/17/18 18:12 Lab Results 09/17/18 09/17/18 09/17/18 Range/Units 18:12 18:12 18:12 WBC 8.7 (3.8-10.6) k/uL RBC 4.93 (3.80-5.40) m/uL Hgb 13.8 (11.4-16.0) gm/dL Hct 42.5 (34.0-46.0) % MCV 86.3 (80.0-100.0) fL MCH 28.0 (25.0-35.0) pg MCHC 32.4 (31.0-37.0) g/dL RDW 15.8 H (11.5-15.5) % Plt Count 293 (150-450) k/uL Neutrophils % 62 % Lymphocytes % 27 % Monocytes % 6 % Eosinophils % 4 % Basophils % 0 % Neutrophils # 5.4 (1.3-7.7) k/uL Lymphocytes # 2.3 (1.0-4.8) k/uL Monocytes # 0.5 (0-1.0) k/uL Eosinophils # 0.4 (0-0.7) k/uL Basophils # 0.0 (0-0.2) k/uL Sodium 143 (137-145) mmol/L Potassium 3.7 (3.5-5.1) mmol/L Chloride 102 (98-107) mmol/L Carbon Dioxide 35 H (22-30) mmol/L Anion Gap 6 mmol/L BUN 7 (7-17) mg/dL Creatinine 0.69 (0.52-1.04) mg/dL Est GFR (CKD-EPI)AfAm >90 (>60 ml/min/1.73 sqM) Est GFR (CKD-EPI)NonAf >90 (>60 ml/min/1.73 sqM) Glucose 77 (74-99) mg/dL Calcium 9.5 (8.4-10.2) mg/dL Total Bilirubin 0.5 (0.2-1.3) mg/dL AST 40 H (14-36) U/L ALT 32 (9-52) U/L Alkaline Phosphatase 62 (38-126) U/L Troponin I (0.000-0.034) ng/mL Total Protein 7.4 (6.3-8.2) g/dL Albumin 3.8 (3.5-5.0) g/dL Amylase 35 (30-110) U/L Lipase 112 (23-300) U/L Urine Color Yellow Urine Appearance Cloudy H (Clear) Urine pH 6.5 (5.0-8.0) Ur Specific Lorenzo 1.014 (1.001-1.035) Urine Protein Trace H (Negative) Urine Glucose (UA) Negative (Negative) Urine Ketones Negative (Negative) Urine Blood Negative (Negative) Urine Nitrite Negative (Negative) Urine Bilirubin Negative (Negative) Urine Urobilinogen <2.0 (<2.0) mg/dL Ur Leukocyte Esterase Large H (Negative) Urine RBC 1 (0-5) /hpf Urine WBC 48 H (0-5) /hpf Ur Squamous Epith Cells 27 H (0-4) /hpf Amorphous Sediment Rare H (None) /hpf Urine Mucus Moderate H (None) /hpf 09/17/18 Range/Units 18:12 WBC (3.8-10.6) k/uL RBC (3.80-5.40) m/uL Hgb (11.4-16.0) gm/dL Hct (34.0-46.0) % MCV (80.0-100.0) fL MCH (25.0-35.0) pg MCHC (31.0-37.0) g/dL RDW (11.5-15.5) % Plt Count (150-450) k/uL Neutrophils % % Lymphocytes % % Monocytes % % Eosinophils % % Basophils % % Neutrophils # (1.3-7.7) k/uL Lymphocytes # (1.0-4.8) k/uL Monocytes # (0-1.0) k/uL Eosinophils # (0-0.7) k/uL Basophils # (0-0.2) k/uL Sodium (137-145) mmol/L Potassium (3.5-5.1) mmol/L Chloride (98-107) mmol/L Carbon Dioxide (22-30) mmol/L Anion Gap mmol/L BUN (7-17) mg/dL Creatinine (0.52-1.04) mg/dL Est GFR (CKD-EPI)AfAm (>60 ml/min/1.73 sqM) Est GFR (CKD-EPI)NonAf (>60 ml/min/1.73 sqM) Glucose (74-99) mg/dL Calcium (8.4-10.2) mg/dL Total Bilirubin (0.2-1.3) mg/dL AST (14-36) U/L ALT (9-52) U/L Alkaline Phosphatase (38-126) U/L Troponin I <0.012 (0.000-0.034) ng/mL Total Protein (6.3-8.2) g/dL Albumin (3.5-5.0) g/dL Amylase (30-110) U/L Lipase (23-300) U/L Urine Color Urine Appearance (Clear) Urine pH (5.0-8.0) Ur Specific Lorenzo (1.001-1.035) Urine Protein (Negative) Urine Glucose (UA) (Negative) Urine Ketones (Negative) Urine Blood (Negative) Urine Nitrite (Negative) Urine Bilirubin (Negative) Urine Urobilinogen (<2.0) mg/dL Ur Leukocyte Esterase (Negative) Urine RBC (0-5) /hpf Urine WBC (0-5) /hpf Ur Squamous Epith Cells (0-4) /hpf Amorphous Sediment (None) /hpf Urine Mucus (None) /hpf - EKG Data -: EKG Interpreted by Me EKG Comments: EKG obtained at 1820 shows normal sinus rhythm with a ventricular rate of 67, VA interval 170, QRS duration 84, QTC 414, QTC 437. No evidence of ST elevation or depression. - Radiology Data Radiology results: report reviewed, image reviewed X-ray KUB abdomen was obtained and showed no sign of intestinal obstruction or pneumoperitoneum. Fecal pattern is normal. Lung bases are clear. There is lumbar spine surgery noted. There are clips from cholecystectomy. There is no pathologic calcifications over the kidneys. Impression by Dr. Dover shows nonacute abdomen. Disposition Clinical Impression: Intractable vomiting Disposition: ADMITTED IP TO THIS HOSP Condition: Serious Referrals: Annelise Rose DO [Primary Care Provider] - 1-2 days Decision to Admit Reason: Admit from EC Decision Date: 09/17/18 Decision Time: 19:56
[2018-09-17] MEDS ORDERED: HYDROmorphone 2 MG/ML 1 ML SYRINGE IVP STA (18:25)
[2018-09-17 18:28] LABS: Basophils % (A) 0 %; Eosinophils # (A) 0.4 k/uL (0-0.7); Eosinophils % (A) 4 %; HCT 42.5 % (34.0-46.0); HGB 13.8 gm/dL (11.4-16.0); Lymphocytes # (A) 2.3 k/uL (1.0-4.8); Lymphocytes % (A) 27 %; MCHC 32.4 g/dL (31.0-37.0); MCV 86.3 fL (80.0-100.0); Mean Platelet Volume 6.8; Monocytes # (A) 0.5 k/uL (0-1.0); Monocytes % (A) 6 %; Neutrophils # (A) 5.4 k/uL (1.3-7.7); Neutrophils % (A) 62 %; Platelet Count 293 k/uL (150-450); RBC 4.93 m/uL (3.80-5.40); RDW 15.8 % (11.5-15.5); WBC 8.7 k/uL (3.8-10.6)
[2018-09-17 18:34] LABS: Amorphous Sediment,Urine Rare /hpf; Appearance,Urine Cloudy (Clear); Bilirubin,Urine Negative (Negative); Blood,Urine Negative (Negative); Color,Urine Yellow; Glucose,Urine (UA) Negative (Negative); Ketones,Urine Negative (Negative); Leukocyte Esterase,Urine Large (Negative); Mucus,Urine Moderate /hpf; Nitrite,Urine Negative (Negative); PH, Urine 6.5 (5.0-8.0); Protein,Urine Trace (Negative); RBC,Urine 1 /hpf (0-5); Specific Gravity,Urine 1.014 (1.001-1.035); Squamous Epithelial Cell,Urine 27 /hpf (0-4); Urobilinogen,Urine <2.0 mg/dL (<2.0); WBC,Urine 48 /hpf (0-5)
[2018-09-17 18:37] LABS: ALT 32 U/L (9-52); AST 40 U/L (14-36); Albumin 3.8 g/dL (3.5-5.0); Alkaline Phosphatase 62 U/L (38-126); Amylase 35 U/L (30-110); Anion Gap 6 mmol/L; Blood Urea Nitrogen 7 mg/dL (7-17); Calcium 9.5 mg/dL (8.4-10.2); Carbon Dioxide 35 mmol/L (22-30); Chloride 102 mmol/L (98-107); Glucose 77 mg/dL (74-99); Lipase 112 U/L (23-300); Potassium 3.7 mmol/L (3.5-5.1); Sodium 143 mmol/L (137-145); Total Bilirubin 0.5 mg/dL (0.2-1.3); Total Protein 7.4 g/dL (6.3-8.2)
--- NOTE | 2018-09-17 19:19 | XR ---
EXAMINATION TYPE: XR KUB DATE OF EXAM: 09/17/2018 COMPARISON: NONE HISTORY: Nausea and vomiting TECHNIQUE: 2 views upright FINDINGS: There is no sign of intestinal obstruction or pneumoperitoneum. Fecal pattern is normal. Isabella ng bases are clear. There is lumbar spine surgery noted. There are clips from cholecystectomy. There are no pathologic calcifications over the kidneys. IMPRESSION: Nonacute abdomen.
[2018-09-17] MEDS ORDERED: NALOXONE 0.4 MG/ML 1 ML VIAL IV PRN (19:48)
[2018-09-17] MEDS ORDERED: IBUPROFEN 200 MG TAB PO PRN (19:51)
[2018-09-17] MEDS ORDERED: traMADol 50 MG TAB PO PRN (19:51)
[2018-09-17] MEDS ORDERED: METHOCARBAMOL 500 MG TAB PO PRN (19:51)
[2018-09-17] MEDS ORDERED: SODIUM CHLORIDE 0.9% 1,000 ML IV SCH (20:00)
[2018-09-17 22:16] VITALS: BMI 32.1
[2018-09-17 22:26] LABS: Glucose,Whole Blood 59 mg/dL (75-99)
[2018-09-17 22:43] LABS: Glucose,Whole Blood 62 mg/dL (75-99)
[2018-09-17 23:04] LABS: Glucose,Whole Blood 77 mg/dL (75-99)
[2018-09-17] MEDS: ACETAMINOPHEN IV (For NPO) 1,000 MG in EMPTY BAG 1 BAG IVPB PRN (23:13)
[2018-09-17 23:22] LABS: Glucose,Whole Blood 103 mg/dL (75-99)
[2018-09-17] MEDS: DEXTROSE 5%-0.9% NACL 1,000 ML IV SCH (23:29)
[2018-09-17] MEDS: metFORMIN 500 MG TAB PO SCH (23:29)
[2018-09-17] MEDS: PANTOPRAZOLE 40 MG TABLET PO SCH (23:38)
[2018-09-17] MEDS: [UNRECOGNIZED DRUG - OTHER] SUBLINGUAL SCH (23:38)
[2018-09-18] MEDS: PROMETHAZINE INJ 25 MG in SODIUM CHLORIDE 0.9% 50 ML IVPB PRN ×3 (00:43→23:15)
[2018-09-18] MEDS: diphenhydrAMINE 50 MG/ML 1 ML VIAL IVP PRN ×3 (00:44→23:16)
[2018-09-18] MEDS: LEVOTHYROXINE 75 MCG TAB PO SCH (06:28)
[2018-09-18 07:27] LABS: Glucose,Whole Blood 71 mg/dL (75-99)
[2018-09-18] MEDS: DULoxetine HCL 60 MG CAPSULE.DR PO SCH (07:40)
[2018-09-18] MEDS: metFORMIN 500 MG TAB PO SCH (07:40)
[2018-09-18] MEDS: MONTELUKAST 10 MG TAB PO SCH (07:40)
[2018-09-18] MEDS: ATORVASTATIN 80 MG TAB PO SCH (07:40)
[2018-09-18] MEDS: ASPIRIN 81 MG PO SCH (07:40)
[2018-09-18] MEDS: MELOXICAM 7.5 MG TAB PO SCH (07:40)
[2018-09-18] MEDS: PANTOPRAZOLE 40 MG TABLET PO SCH ×2 (07:42→17:22)
[2018-09-18] MEDS: PATIENT'S OWN MED (Mirabegron [Myrbetriq] 50 MG) PO SCH (07:44)
[2018-09-18] MEDS ORDERED: PATIENT'S OWN MED (Liraglutide [Victoza 2-Pak] 1.8 MG) SQ SCH (09:00)
[2018-09-18] MEDS ORDERED: INSULIN DETEMIR 100 UNIT/ML 10 ML VIAL SQ SCH (09:00)
[2018-09-18] MEDS ORDERED: CANAGLIFLOZIN 100 MG PO SCH (09:00)
[2018-09-18] MEDS: ACETAMINOPHEN IV (For NPO) 1,000 MG in EMPTY BAG 1 BAG IVPB PRN (11:51)
--- NOTE | 2018-09-18 12:01 | P.HPIM ---
History of Present Illness H&P Date: 09/18/18 This is a 68-year-old female patient of Dr. Rose. Patient presented to the emergency room with complaints of increased vomiting. Patient reports that she had a new pain pump placed in early August and since then she's had increased episodes of GI upset including vomiting. Patient denies any episodes of diarrhea or constipation. Patient denies any change in diet. Patient denies any alcohol consumption Patient's primary care provider recommended patient come into ER for possible inpatient EGD. Patient has a history of chronic low back pain in which she follows with Dr. Pizarro for her pain in outpatient setting. Patient recently admitted with complaints of increased pain that radiated to legs. At that time patient was seen by Dr. White was believed that leg pain was due to nerve involvement with lower back etiology. Patient reports that she is still not followed up with Dr. vazquez due to multiple hospital admissions. Additional medical history includes diabetes mellitus type 2, GERD, hyperlipidemia, essential hypertension and sleep apnea. KUB x- ray completed showing nonacute abdomen. EKG completed showing normal sinus rhythm. Nonspecific T-wave abnormality. Abnormal EKG. Amylase and lipase within normal limits. Patient's blood sugar low at 71. Patient's long-acting insulin and home diabetes mellitus currently on hold. Sliding scale insulin and Accu-Cheks ordered. Patient started on D5 normal saline at 75. Dr. Vo has been consulted for GI services. This time patient maintained on clear liquid diet. Patient denies chest pain or shortness of breath. Patient denies any diarrhea or constipation. Patient denies any urinary burning or frequency. Review of Systems Please refer to HPI otherwise unremarkable Past Medical History Past Medical History: Cancer, Diabetes Mellitus, GERD/Reflux, Hyperlipidemia, Hypertension, Pneumonia, Sleep Apnea/CPAP/BIPAP Additional Past Medical History / Comment(s): Pt recently admitted 08/22/18 with pneumonia/sepsis possible aspiration pne, N/V, UTI, hyperkalemia and constipation. Other Hx: IDDM type II, chronic low back pain radiates to L leg/has pain pump, herniated discs, colitis, black stools, L breast cancer with mastectomy, irregular heart beat once, JANENE with Cpap, dysphagia, hypothyroid, constipation. History of Any Multi-Drug Resistant Organisms: MRSA Date of last positivie culture/infection: 04/02/17 MDRO Source:: URINE Past Surgical History: Back Surgery, Breast Surgery, Cholecystectomy, Hysterectomy Additional Past Surgical History / Comment(s): Lt Mastectomy W/ RECONSTRUCTION; RT BREAST IMPLANT. SINUS SURG X3., colonoscopy, pain pump implant Past Anesthesia/Blood Transfusion Reactions: Previous Problems w/ Anesthesia Additional Past Anesthesia/Blood Transfusion Reaction / Comment(s): HX OF DAMAGE TO VOCAL CORDS POST-OP BACK SURGERY Past Psychological History: No Psychological Hx Reported Additional Psychological History / Comment(s): Pt resides with her spouse. She uses a cane or walker to ambulate. She has a pain pump d/t back pain. She has a glucometer. She recently established with [facility]. Smoking Status: Never smoker Past Alcohol Use History: None Reported Past Drug Use History: None Reported - Past Family History Father Sister(s) Family Medical History: Cancer Additional Family Medical History / Comment(s): Father had leukemia and sister had pancreatic cancer. Brother(s) Family Medical History: Cancer Additional Family Medical History / Comment(s): Prostate cancer, ANEURYSM Mother Family Medical History: No Reported History Additional Family Medical History / Comment(s): Mother was healthy. Medications and Allergies Home Medications Medication Instructions Recorded Confirmed Type Aspirin EC [Ecotrin Low Dose] 81 mg PO DAILY 04/22/16 09/17/18 History Esomeprazole Magnesium [NexIUM] 40 mg PO BID 04/22/16 09/17/18 History Liraglutide [Victoza 2-Dread] 1.8 mg SQ DAILY 04/22/16 09/17/18 History Methocarbamol [Robaxin] 500 mg PO BID PRN 04/22/16 09/17/18 History traMADol HCL [Ultram] 50 mg PO DAILY PRN 04/22/16 09/17/18 History Rosuvastatin Calcium [Crestor] 40 mg PO DAILY 06/02/16 09/17/18 History Insulin Glargine [Lantus] 50 unit SQ DAILY 11/01/17 09/17/18 History Levothyroxine Sodium [Synthroid] 75 mcg PO DAILY 11/01/17 09/17/18 History Canagliflozin [Invokana] 100 mg PO DAILY 06/21/18 09/17/18 History Celecoxib [CeleBREX] 200 mg PO DAILY 06/21/18 09/17/18 History DULoxetine HCL [Cymbalta] 60 mg PO DAILY 06/21/18 09/17/18 History Mirabegron [Myrbetriq] 50 mg PO DAILY 06/21/18 09/17/18 History Montelukast [Singulair] 10 mg PO DAILY 06/21/18 09/17/18 History Valsartan [Diovan] 40 mg PO DAILY 06/21/18 09/17/18 History Nocdurna 27.7 mcg SUBLINGUAL HS 08/20/18 09/17/18 History metFORMIN HCL 1,000 mg PO BID 08/20/18 09/17/18 History Ibuprofen [Motrin Ib] 200 mg PO Q6H PRN 09/15/18 09/17/18 History Prochlorperazine Suppository 25 mg RECTAL BID PRN 09/17/18 09/17/18 History [Compazine] Allergies Allergy/AdvReac Type Severity Reaction Status Date / Time neomycin Allergy Itching Verified 09/17/18 17:37 Sulfa (Sulfonamide Allergy Dyspnea Verified 09/17/18 21:52 Antibiotics) sulfamethoxazole Allergy Dyspnea Verified 09/17/18 17:37 [From ] trimethoprim [From ] Allergy Dyspnea Verified 09/17/18 17:37 codeine AdvReac headache Verified 09/17/18 21:52 morphine AdvReac Itching Verified 09/17/18 17:37 Physical Exam Vitals: Vital Signs Temp Pulse Pulse Resp BP BP Pulse Ox 09/18/18 07:00 96.7 F L 69 16 128/71 91 L 09/17/18 23:00 97.6 F 73 18 136/64 91 L 09/17/18 21:30 98.1 F 65 18 137/73 91 L 09/17/18 20:00 98 F 82 18 144/64 97 09/17/18 16:58 98.1 F 85 20 143/90 94 L Intake and Output 09/17/18 09/18/18 09/18/18 22:59 06:59 14:59 Intake Total 320 Balance 320 Intake: Oral 320 Other: Voiding Method Toilet # Voids 1 1 Weight 82.236 kg Head normocephalic Neck supple Lungs clear to auscultation bilaterally no wheezing or crackles Heart regular rate and rhythm S1-S2, no rub or gallop Abdomen is soft nontender nondistended positive bowel sounds no hepatosplenomegaly Extremities no edema Neuro alert and orientated to 3 Results CBC & Chem 7: 09/17/18 18:12 09/17/18 18:12 Labs: Abnormal Lab Results - Last 24 Hours (Table) 09/17/18 09/17/18 09/17/18 Range/Units 18:12 18:12 18:12 RDW 15.8 H (11.5-15.5) % Carbon Dioxide 35 H (22-30) mmol/L POC Glucose (mg/dL) (75-99) mg/dL AST 40 H (14-36) U/L Urine Appearance Cloudy H (Clear) Urine Protein Trace H (Negative) Ur Leukocyte Esterase Large H (Negative) Urine WBC 48 H (0-5) /hpf Ur Squamous Epith Cells 27 H (0-4) /hpf Amorphous Sediment Rare H (None) /hpf Urine Mucus Moderate H (None) /hpf 09/17/18 09/17/18 09/17/18 Range/Units 22:25 22:42 23:20 RDW (11.5-15.5) % Carbon Dioxide (22-30) mmol/L POC Glucose (mg/dL) 59 L 62 L 103 H (75-99) mg/dL AST (14-36) U/L Urine Appearance (Clear) Urine Protein (Negative) Ur Leukocyte Esterase (Negative) Urine WBC (0-5) /hpf Ur Squamous Epith Cells (0-4) /hpf Amorphous Sediment (None) /hpf Urine Mucus (None) /hpf 09/18/18 Range/Units 07:22 RDW (11.5-15.5) % Carbon Dioxide (22-30) mmol/L POC Glucose (mg/dL) 71 L (75-99) mg/dL AST (14-36) U/L Urine Appearance (Clear) Urine Protein (Negative) Ur Leukocyte Esterase (Negative) Urine WBC (0-5) /hpf Ur Squamous Epith Cells (0-4) /hpf Amorphous Sediment (None) /hpf Urine Mucus (None) /hpf Microbiology - Last 24 Hours (Table) 09/17/18 Unknown Urine Culture - Preliminary Urine,Voided Thrombosis Risk Factor Assmnt - Choose All That Apply Any of the Below Risk Factors Present?: Yes Each Factor Represents 1 point: Sepsis (< 1month) Other Risk Factors: Yes Each Risk Factor Represents 2 Points: Age 61-74 years Other congenital or acquired thrombophilia - If yes, enter type in comment: No Thrombosis Risk Factor Assessment Total Risk Factor Score: 3 Thrombosis Risk Factor Assessment Level: Moderate Risk Assessment and Plan Assessment: 1. Nausea and vomiting. KUB x-ray completed showing nonacute abdomen. GI services have been consulted. Amylase and lipase within normal limits 2. Hypoglycemia. Patient's home medications currently on hold. Patient started D5 normal saline. Sliding scale and Accu-Cheks ordered. 3. Chronic low back pain. Patient follows with Dr. Lewis 4. Diabetes mellitus type 2. home meds currently on hold due to hypoglycemia 5. History of GERD 6. History of hyperlipidemia 7. History of essential hypertension 8. History of previous pneumonia 9. History of sleep apnea DVT prophylaxis Protonix. GI prophylaxis Lovenox Repeat UA ordered. Due to possible contamination. Urine culture GI service is consulted A.m. labs ordered Time with Patient: Greater than 30 (Greater than 60% of the total time spent in counseling and coordination of care. I performed an examination of the patient and discussed their management with the Nurse Practitioner. I have reviewed the Nurse Practitioner's notes and agree with the documented findings and plan of care)
[2018-09-18 12:34] LABS: Glucose,Whole Blood 100 mg/dL (75-99)
[2018-09-18] MEDS: INSULIN ASPART 100 UNIT/ML 1 ML 10 ML VIAL SQ SCH ×3 (13:07→21:32)
[2018-09-18] MEDS: DEXTROSE 5%-0.9% NACL 1,000 ML IV SCH ×2 (13:13→23:22)
[2018-09-18 17:23] LABS: Glucose,Whole Blood 125 mg/dL (75-99)
--- NOTE | 2018-09-18 19:36 | P.CONS ---
History of Present Illness - Reason for Consult Consult date: 09/18/18 Nausea and vomiting Requesting physician: Lexie Craven - Chief Complaint Nausea, vomiting - History of Present Illness The patient is a 68-year-old with a medical history significant for hypertension , hyperlipidemia, JANENE, GERD, chronic constipation likely secondary to opioid use and type 2 diabetes mellitus who presents to the hospital with complaints of nausea and vomiting. The patient reports that she has had intractable nausea and vomiting since the beginning of the year when she had surgical placement of a pain,. She reports that since that time she has been unable to keep any food down with frequent vomiting of food and liquids which she had consumed. She denies any hematemesis or coffee-ground emesis with these episodes. She reports that they're worsened when she is sitting up or leaning forward. 30 pounds of weight loss since the beginning of the year due to inability to eat or drink. He is on home therapy with Nexium. She reports a history of alternating constipation and then diarrhea after she takes laxative therapy. She reports that at baseline she is constipated, however will have multiple loose episodes after receiving laxatives or enemas. She previously had endoscopic evaluation in over 10 years ago in [place] but has had nothing recently, she believes that these were significant for possible diverticular disease or polyps. Since being admitted to the hospital she reports that she is feeling better after hydration and has been able to tolerate liquids. On presentation to the hospital she was found to have no elevation in her amylase or lipase and normal liver enzymes. Review of Systems REVIEW OF SYSTEMS: CONSTITUTIONAL: Denies any fevers, chills, but does state that she has had 30 pounds of weight loss since the beginning of the year due to her nausea and vomiting. CARDIOVASCULAR: Denies any chest pain, palpitations high or low blood pressures RESPIRATORY: Denies any shortness of breath, hemoptysis or cough. GENITOURINARY: No dysuria or hematuria. MUSCULOSKELETAL: No weakness reported. SKIN: Denies any new rashes or lesions, jaundice or pallor. PSYCHIATRIC: Denies any depression or anxiety. NEUROLOGY: Denies headache, denies any new focal deficits. EARS/NOSE/THROAT: No recent hearing change, congestion, nasal discharge or sore throat. EYES: No pain in eyes, discharge or change in vision. GASTROINTESTINAL: As per HPI. Past Medical History Past Medical History: Cancer, Diabetes Mellitus, GERD/Reflux, Hyperlipidemia, Hypertension, Pneumonia, Sleep Apnea/CPAP/BIPAP Additional Past Medical History / Comment(s): Pt recently admitted 08/22/18 with pneumonia/sepsis possible aspiration pne, N/V, UTI, hyperkalemia and constipation. Other Hx: IDDM type II, chronic low back pain radiates to L leg/has pain pump, herniated discs, colitis, black stools, L breast cancer with mastectomy, irregular heart beat once, JANENE with Cpap, dysphagia, hypothyroid, constipation. History of Any Multi-Drug Resistant Organisms: MRSA Year Discovered:: 04/02/17 MDRO Source:: URINE Past Surgical History: Back Surgery, Breast Surgery, Cholecystectomy, Hysterectomy Additional Past Surgical History / Comment(s): Lt Mastectomy W/ RECONSTRUCTION; RT BREAST IMPLANT. SINUS SURG X3., colonoscopy, pain pump implant Past Anesthesia/Blood Transfusion Reactions: Previous Problems w/ Anesthesia Additional Past Anesthesia/Blood Transfusion Reaction / Comm: HX OF DAMAGE TO VOCAL CORDS POST-OP BACK SURGERY Past Psychological History: No Psychological Hx Reported Additional Psychological History / Comment(s): Pt resides with her spouse. She uses a cane or walker to ambulate. She has a pain pump d/t back pain. She has a glucometer. She recently established with [facility]. Smoking Status: Never smoker Past Alcohol Use History: None Reported Past Drug Use History: None Reported - Past Family History Father Sister(s) Family Medical History: Cancer Additional Family Medical History / Comment(s): Father had leukemia and sister had pancreatic cancer. Brother(s) Family Medical History: Cancer Additional Family Medical History / Comment(s): Prostate cancer, ANEURYSM Mother Family Medical History: No Reported History Additional Family Medical History / Comment(s): Mother was healthy. Medications and Allergies Home Medications Medication Instructions Recorded Confirmed Type Aspirin EC [Ecotrin Low Dose] 81 mg PO DAILY 04/22/16 09/17/18 History Esomeprazole Magnesium [NexIUM] 40 mg PO BID 04/22/16 09/17/18 History Liraglutide [Victoza 2-Dread] 1.8 mg SQ DAILY 04/22/16 09/17/18 History Methocarbamol [Robaxin] 500 mg PO BID PRN 04/22/16 09/17/18 History traMADol HCL [Ultram] 50 mg PO DAILY PRN 04/22/16 09/17/18 History Rosuvastatin Calcium [Crestor] 40 mg PO DAILY 06/02/16 09/17/18 History Insulin Glargine [Lantus] 50 unit SQ DAILY 11/01/17 09/17/18 History Levothyroxine Sodium [Synthroid] 75 mcg PO DAILY 11/01/17 09/17/18 History Canagliflozin [Invokana] 100 mg PO DAILY 06/21/18 09/17/18 History Celecoxib [CeleBREX] 200 mg PO DAILY 06/21/18 09/17/18 History DULoxetine HCL [Cymbalta] 60 mg PO DAILY 06/21/18 09/17/18 History Mirabegron [Myrbetriq] 50 mg PO DAILY 06/21/18 09/17/18 History Montelukast [Singulair] 10 mg PO DAILY 06/21/18 09/17/18 History Valsartan [Diovan] 40 mg PO DAILY 06/21/18 09/17/18 History Nocdurna 27.7 mcg SUBLINGUAL HS 08/20/18 09/17/18 History metFORMIN HCL 1,000 mg PO BID 08/20/18 09/17/18 History Ibuprofen [Motrin Ib] 200 mg PO Q6H PRN 09/15/18 09/17/18 History Prochlorperazine Suppository 25 mg RECTAL BID PRN 09/17/18 09/17/18 History [Compazine] Allergies Allergy/AdvReac Type Severity Reaction Status Date / Time neomycin Allergy Itching Verified 09/17/18 17:37 Sulfa (Sulfonamide Allergy Dyspnea Verified 09/17/18 21:52 Antibiotics) sulfamethoxazole Allergy Dyspnea Verified 09/17/18 17:37 [From ] trimethoprim [From ] Allergy Dyspnea Verified 09/17/18 17:37 codeine AdvReac headache Verified 09/17/18 21:52 morphine AdvReac Itching Verified 09/17/18 17:37 Physical Exam Vitals: Vital Signs Temp Pulse Pulse Resp BP BP Pulse Ox 09/18/18 15:00 96.4 F L 70 16 118/63 90 L 09/18/18 07:00 96.7 F L 69 16 128/71 91 L 09/17/18 23:00 97.6 F 73 18 136/64 91 L 09/17/18 21:30 98.1 F 65 18 137/73 91 L 09/17/18 20:00 98 F 82 18 144/64 97 Intake and Output 09/18/18 09/18/18 09/18/18 06:59 14:59 22:59 Intake Total 320 Balance 320 Intake: Oral 320 Other: # Voids 1 # Bowel Movements 1 On physical examination, patient appears comfortable in no apparent distress. HEAD: Normocephalic, atraumatic. EYES: No scleral icterus. No conjunctival injection. MOUTH: No lesions, tongue midline. NECK: Trachea midline, no gross abnormalities. CHEST: Clear to auscultation with no wheezing or rhonchi appreciated. HEART: Regular rate and rhythm. ABDOMEN: Soft, obese. Bowel sounds are positive. No organomegaly. No guarding or rigidity. EXTREMITIES: No pedal edema. SKIN: No rashes, no jaundice. NEUROLOGIC: Alert and oriented x3. Results CBC & Chem 7: 09/17/18 18:12 09/17/18 18:12 Labs: Abnormal Lab Results - Last 24 Hours (Table) 09/17/18 09/17/18 09/17/18 Range/Units 22:25 22:42 23:20 POC Glucose (mg/dL) 59 L 62 L 103 H (75-99) mg/dL 09/18/18 09/18/18 09/18/18 Range/Units 07:22 12:28 17:09 POC Glucose (mg/dL) 71 L 100 H 125 H (75-99) mg/dL Microbiology - Last 24 Hours (Table) 09/17/18 Unknown Urine Culture - Preliminary Urine,Voided Abdominal x-ray: report reviewed (Nonacute abdomen on KUB x-ray) Assessment and Plan (1) Nausea & vomiting Narrative/Plan: Patient presenting with 1 month of nausea and vomiting after surgical placement of a pain pump. The patient reports that she has had continuous nausea with regurgitation of any consumed food or liquids. She reports that this is worse with sitting up or leaning forward. She denies any hematemesis or coffee- ground emesis. She does have a history of reflux disease. On clear if her symptoms are due to a gastroenteritis, gastroparesis in the setting of narcotic use and diabetes mellitus, uncontrolled reflux or other etiology. Current Visit: No Status: Acute Code(s): R11.2 - NAUSEA WITH VOMITING, UNSPECIFIED SNOMED Code(s): 41686898 (2) Constipation Narrative/Plan: Long-standing history of constipation, likely secondary to narcotic use. She reports intermittent episodes of diarrhea, likely secondary to laxative use. Current Visit: Yes Status: Acute Code(s): K59.00 - CONSTIPATION, UNSPECIFIED SNOMED Code(s): 04471621 Plan: Supportive care Advance diet as tolerated Tight control of blood this blood sugars Continue Protonix twice daily Continue Phenergan as needed Have added MiraLAX daily for bowel regimen We'll titrate medications based on symptoms thank you for allowing us to participate in the care of the patient we will continue to follow
[2018-09-18 21:13] LABS: Glucose,Whole Blood 141 mg/dL (75-99)
[2018-09-18] MEDS: [UNRECOGNIZED DRUG - OTHER] SUBLINGUAL SCH (21:23)
[2018-09-19 07:24] LABS: Glucose,Whole Blood 77 mg/dL (75-99)
[2018-09-19] MEDS: LEVOTHYROXINE 75 MCG TAB PO SCH (07:28)
[2018-09-19] MEDS: INSULIN ASPART 100 UNIT/ML 1 ML 10 ML VIAL SQ SCH ×4 (07:28→20:43)
[2018-09-19] MEDS: PATIENT'S OWN MED (Mirabegron [Myrbetriq] 50 MG) PO SCH (08:23)
[2018-09-19] MEDS: POLYETHYLENE GLYCOL 3350 17 GM POWD.PACK PO SCH (08:23)
[2018-09-19] MEDS: DULoxetine HCL 60 MG CAPSULE.DR PO SCH (08:23)
[2018-09-19] MEDS: ATORVASTATIN 80 MG TAB PO SCH (08:23)
[2018-09-19] MEDS: ASPIRIN 81 MG PO SCH (08:23)
[2018-09-19] MEDS: ENOXAPARIN 40 MG/0.4 ML SYRINGE SQ SCH (08:23)
[2018-09-19] MEDS: MONTELUKAST 10 MG TAB PO SCH (08:23)
[2018-09-19] MEDS: PANTOPRAZOLE 40 MG TABLET PO SCH ×2 (08:23→17:29)
[2018-09-19] MEDS: MELOXICAM 7.5 MG TAB PO SCH (08:23)
[2018-09-19] MEDS: PROMETHAZINE INJ 25 MG in SODIUM CHLORIDE 0.9% 50 ML IVPB PRN ×2 (10:13→23:32)
[2018-09-19] MEDS: diphenhydrAMINE 50 MG/ML 1 ML VIAL IVP PRN ×2 (10:13→23:36)
[2018-09-19 11:10] LABS: Basophils % (A) 1 %; Eosinophils # (A) 0.4 k/uL (0-0.7); Eosinophils % (A) 8 %; HCT 35.1 % (34.0-46.0); HGB 11.3 gm/dL (11.4-16.0); Lymphocytes # (A) 1.3 k/uL (1.0-4.8); Lymphocytes % (A) 24 %; MCH 27.5 pg (25.0-35.0); MCV 85.9 fL (80.0-100.0); Mean Platelet Volume 6.7; Monocytes # (A) 0.4 k/uL (0-1.0); Monocytes % (A) 7 %; Neutrophils # (A) 3.2 k/uL (1.3-7.7); Neutrophils % (A) 60 %; Platelet Count 235 k/uL (150-450); RBC 4.09 m/uL (3.80-5.40); RDW 15.5 % (11.5-15.5); WBC 5.3 k/uL (3.8-10.6)
[2018-09-19 11:15] LABS: ALT 27 U/L (9-52); AST 28 U/L (14-36); Albumin 2.8 g/dL (3.5-5.0); Alkaline Phosphatase 54 U/L (38-126); Anion Gap 6 mmol/L; Blood Urea Nitrogen 4 mg/dL (7-17); Calcium 8.3 mg/dL (8.4-10.2); Carbon Dioxide 29 mmol/L (22-30); Chloride 107 mmol/L (98-107); Glucose 121 mg/dL (74-99); Potassium 3.8 mmol/L (3.5-5.1); Sodium 142 mmol/L (137-145); Total Bilirubin 0.4 mg/dL (0.2-1.3); Total Protein 5.7 g/dL (6.3-8.2)
[2018-09-19 11:53] LABS: Glucose,Whole Blood 117 mg/dL (75-99)
--- NOTE | 2018-09-19 11:54 | P.PN ---
Subjective Progress Note Date: 09/19/18 This is a 68-year-old female patient of Dr. Rose. Patient presented to the emergency room with complaints of increased vomiting. Patient reports that she had a new pain pump placed in early August and since then she's had increased episodes of GI upset including vomiting. Patient denies any episodes of diarrhea or constipation. Patient denies any change in diet. Patient denies any alcohol consumption Patient's primary care provider recommended patient come into ER for possible inpatient EGD. Patient has a history of chronic low back pain in which she follows with Dr. Pizarro for her pain in outpatient setting. Patient recently admitted with complaints of increased pain that radiated to legs. At that time patient was seen by Dr. White was believed that leg pain was due to nerve involvement with lower back etiology. Patient reports that she is still not followed up with Dr. vazquez due to multiple hospital admissions. Additional medical history includes diabetes mellitus type 2, GERD, hyperlipidemia, essential hypertension and sleep apnea. KUB x- ray completed showing nonacute abdomen. EKG completed showing normal sinus rhythm. Nonspecific T-wave abnormality. Abnormal EKG. Amylase and lipase within normal limits. Patient's blood sugar low at 71. Patient's long-acting insulin and home diabetes mellitus currently on hold. Sliding scale insulin and Accu-Cheks ordered. Patient started on D5 normal saline at 75. Dr. Vo has been consulted for GI services. This time patient maintained on clear liquid diet. Patient denies chest pain or shortness of breath. Patient denies any diarrhea or constipation. Patient denies any urinary burning or frequency. On 09/19/2018 patient is alert and oriented 3 resting comfortably in bed. Patient is still complaining of some nausea and reflux. Patient was seen by GI services. Phenergan has been added along with IV Protonix. At this time patient is still complaining of some abdominal discomfort along with chronic back pain. Patient is complaining of some urinary urgency at this time. Will start patient on Rocephin for UTI. Also repeat urinalysis and urine culture. Patient denies chest pain or shortness breath. Objective - Vital Signs Vital signs: Vital Signs Temp 97.8 F 09/19/18 05:50 Pulse 73 09/19/18 05:50 Resp 20 09/19/18 05:50 BP 144/72 09/19/18 05:50 Pulse Ox 92 L 09/19/18 05:50 Intake & Output 09/18/18 09/19/18 09/19/18 18:59 06:59 18:59 Intake Total 320 300 Balance 320 300 Intake: Oral 320 300 Other: Voiding Method Toilet # Voids 1 # Bowel Movements 1 - Exam Head normocephalic Neck supple Lungs clear to auscultation bilaterally no wheezing or crackles Heart regular rate and rhythm S1-S2, no rub or gallop Abdomen is soft nontender nondistended positive bowel sounds no hepatosplenomegaly Extremities no edema Neuro alert and orientated to 3 - Labs CBC & Chem 7: 09/19/18 10:42 09/19/18 10:42 Labs: Abnormal Lab Results - Last 24 Hours (Table) 09/18/18 09/18/18 09/18/18 Range/Units 12:28 17:09 21:08 Hgb (11.4-16.0) gm/dL BUN (7-17) mg/dL Glucose (74-99) mg/dL POC Glucose (mg/dL) 100 H 125 H 141 H (75-99) mg/dL Calcium (8.4-10.2) mg/dL Total Protein (6.3-8.2) g/dL Albumin (3.5-5.0) g/dL 09/19/18 09/19/18 Range/Units 10:42 10:42 Hgb 11.3 L (11.4-16.0) gm/dL BUN 4 L (7-17) mg/dL Glucose 121 H (74-99) mg/dL POC Glucose (mg/dL) (75-99) mg/dL Calcium 8.3 L (8.4-10.2) mg/dL Total Protein 5.7 L (6.3-8.2) g/dL Albumin 2.8 L (3.5-5.0) g/dL Microbiology - Last 24 Hours (Table) 09/17/18 Unknown Urine Culture - Final Urine,Voided Assessment and Plan Assessment: 1. Nausea and vomiting. KUB x-ray completed showing nonacute abdomen. GI services have been consulted. Amylase and lipase within normal limits. Per GI services continue Protonix twice a day. Phenergan as needed has been added. Continue to monitor at this time 2. Hypoglycemia. Patient's home medications currently on hold. Patient started D5 normal saline. Sliding scale and Accu-Cheks ordered. 3. Chronic low back pain. Patient follows with Dr. Lewis 4. Diabetes mellitus type 2. home meds currently on hold due to hypoglycemia 5. History of GERD 6. History of hyperlipidemia 7. History of essential hypertension 8. History of previous pneumonia 9. History of sleep apnea 10. Urinary tract infection. Repeat UA has been ordered. Patient asymptomatic. Rocephin has been added urine culture ordered DVT prophylaxis Protonix. GI prophylaxis Lovenox
[2018-09-19 17:19] LABS: Glucose,Whole Blood 200 mg/dL (75-99)
[2018-09-19] MEDS: DEXTROSE 5%-0.9% NACL 1,000 ML IV SCH (17:30)
--- NOTE | 2018-09-19 19:05 | P.PN ---
Subjective Progress Note Date: 09/19/18 Principal diagnosis: Nausea, vomiting Patient still reporting nausea, but no further episodes of vomiting. She has tolerated her diet. She is also still reporting vague epigastric pain. Objective - Vital Signs Vital signs: Vital Signs Temp 97.6 F 09/19/18 14:21 Pulse 64 09/19/18 14:21 Resp 16 09/19/18 15:22 BP 162/74 09/19/18 14:21 Pulse Ox 95 09/19/18 14:21 Intake & Output 09/18/18 09/19/18 09/19/18 18:59 06:59 18:59 Intake Total 320 300 Balance 320 300 Intake: Oral 320 300 Other: Voiding Method Toilet # Voids 1 4 # Bowel Movements 1 - Exam On physical examination, patient appears comfortable in no apparent distress. HEAD: Normocephalic, atraumatic. EYES: No scleral icterus. No conjunctival injection. MOUTH: No lesions, tongue midline. NECK: Trachea midline, no gross abnormalities. CHEST: Clear to auscultation with no wheezing or rhonchi appreciated. HEART: Regular rate and rhythm. ABDOMEN: Soft, obese and tender to palpation. Bowel sounds are positive. No organomegaly. No guarding or rigidity. EXTREMITIES: No pedal edema. SKIN: No rashes, no jaundice. NEUROLOGIC: Alert and oriented x3. No focal deficits. - Labs CBC & Chem 7: 09/19/18 10:42 09/19/18 10:42 Labs: Abnormal Lab Results - Last 24 Hours (Table) 09/18/18 09/19/18 09/19/18 Range/Units 21:08 10:42 10:42 Hgb 11.3 L (11.4-16.0) gm/dL BUN 4 L (7-17) mg/dL Glucose 121 H (74-99) mg/dL POC Glucose (mg/dL) 141 H (75-99) mg/dL Calcium 8.3 L (8.4-10.2) mg/dL Total Protein 5.7 L (6.3-8.2) g/dL Albumin 2.8 L (3.5-5.0) g/dL 09/19/18 09/19/18 Range/Units 11:35 17:17 Hgb (11.4-16.0) gm/dL BUN (7-17) mg/dL Glucose (74-99) mg/dL POC Glucose (mg/dL) 117 H 200 H (75-99) mg/dL Calcium (8.4-10.2) mg/dL Total Protein (6.3-8.2) g/dL Albumin (3.5-5.0) g/dL Microbiology - Last 24 Hours (Table) 09/17/18 Unknown Urine Culture - Final Urine,Voided Assessment and Plan (1) Nausea & vomiting Narrative/Plan: Patient presenting with 1 month of nausea and vomiting after surgical placement of a pain pump. The patient reports that she has had continuous nausea with regurgitation of any consumed food or liquids. She reports that this is worse with sitting up or leaning forward. She denies any hematemesis or coffee- ground emesis. She does have a history of reflux disease. On clear if her symptoms are due to a gastroenteritis, gastroparesis in the setting of narcotic use and diabetes mellitus, uncontrolled reflux or other etiology. Current Visit: No Status: Acute Code(s): R11.2 - NAUSEA WITH VOMITING, UNSPECIFIED SNOMED Code(s): 42106063 (2) Constipation Narrative/Plan: Long-standing history of constipation, likely secondary to narcotic use. She reports intermittent episodes of diarrhea, likely secondary to laxative use. Current Visit: Yes Status: Acute Code(s): K59.00 - CONSTIPATION, UNSPECIFIED SNOMED Code(s): 78918167 Plan: Supportive care Advance diet as tolerated Tight control of blood this blood sugars Continue Protonix twice daily Continue Phenergan as needed Continue MiraLAX daily for bowel regimen we'll titrate medications based on symptoms Nothing by mouth after midnight, we'll plan on EGD tomorrow Thank you for allowing us to participate in the care of the patient we will continue to follow
[2018-09-19 20:29] LABS: Glucose,Whole Blood 162 mg/dL (75-99)
[2018-09-19] MEDS: [UNRECOGNIZED DRUG - OTHER] SUBLINGUAL SCH (20:39)
[2018-09-19] MEDS: amLODIPine 5 MG TAB PO SCH (23:32)
[2018-09-20 04:39] LABS: Appearance,Urine Clear (Clear); Bilirubin,Urine Negative (Negative); Blood,Urine Negative (Negative); Color,Urine Colorless; Glucose,Urine (UA) Negative (Negative); Ketones,Urine Negative (Negative); Leukocyte Esterase,Urine Negative (Negative); Nitrite,Urine Negative (Negative); Protein,Urine Negative (Negative); Specific Gravity,Urine 1.002 (1.001-1.035); Urobilinogen,Urine <2.0 mg/dL (<2.0)
[2018-09-20] MEDS: DEXTROSE 5%-0.9% NACL 1,000 ML IV SCH ×2 (05:05→15:01)
[2018-09-20] MEDS: LEVOTHYROXINE 75 MCG TAB PO SCH ×2 (06:19→07:19)
[2018-09-20 07:07] LABS: Glucose,Whole Blood 101 mg/dL (75-99)
[2018-09-20] MEDS: amLODIPine 5 MG TAB PO SCH (07:19)
[2018-09-20] MEDS: PANTOPRAZOLE 40 MG TABLET PO SCH ×2 (07:19→16:47)
[2018-09-20] MEDS: INSULIN ASPART 100 UNIT/ML 1 ML 10 ML VIAL SQ SCH ×4 (07:19→21:22)
[2018-09-20] MEDS: ATORVASTATIN 80 MG TAB PO SCH (07:19)
[2018-09-20] MEDS: ASPIRIN 81 MG PO SCH (07:19)
[2018-09-20] MEDS: PATIENT'S OWN MED (Mirabegron [Myrbetriq] 50 MG) PO SCH (07:20)
[2018-09-20] MEDS: ENOXAPARIN 40 MG/0.4 ML SYRINGE SQ SCH (07:20)
[2018-09-20] MEDS: DULoxetine HCL 60 MG CAPSULE.DR PO SCH (07:20)
[2018-09-20] MEDS: MONTELUKAST 10 MG TAB PO SCH (07:20)
[2018-09-20] MEDS: POLYETHYLENE GLYCOL 3350 17 GM POWD.PACK PO SCH (07:20)
[2018-09-20] MEDS: MELOXICAM 7.5 MG TAB PO SCH (07:20)
[2018-09-20 07:41] LABS: Basophils % (A) 1 %; Eosinophils # (A) 0.5 k/uL (0-0.7); Eosinophils % (A) 9 %; HCT 38.7 % (34.0-46.0); HGB 12.5 gm/dL (11.4-16.0); Hypochromasia Slight; Lymphocytes # (A) 1.4 k/uL (1.0-4.8); Lymphocytes % (A) 23 %; MCH 27.8 pg (25.0-35.0); MCHC 32.3 g/dL (31.0-37.0); MCV 86.3 fL (80.0-100.0); Mean Platelet Volume 6.1; Monocytes # (A) 0.4 k/uL (0-1.0); Monocytes % (A) 7 %; Neutrophils # (A) 3.5 k/uL (1.3-7.7); Neutrophils % (A) 59 %; Platelet Count 254 k/uL (150-450); RBC 4.48 m/uL (3.80-5.40); RDW 15.5 % (11.5-15.5)
[2018-09-20 07:51] LABS: ALT 22 U/L (9-52); AST 26 U/L (14-36); Alkaline Phosphatase 68 U/L (38-126); Anion Gap 5 mmol/L; Blood Urea Nitrogen 5 mg/dL (7-17); Calcium 8.7 mg/dL (8.4-10.2); Carbon Dioxide 30 mmol/L (22-30); Chloride 108 mmol/L (98-107); Glucose 111 mg/dL (74-99); Sodium 143 mmol/L (137-145); Total Bilirubin 0.4 mg/dL (0.2-1.3); Total Protein 6.1 g/dL (6.3-8.2)
[2018-09-20] MEDS ORDERED: LIDOCAINE 1% INJ 10MG/ML (20 ML MDV) ONE (11:04)
[2018-09-20] MEDS ORDERED: PROPOFOL 10 MG/ML 20 ML VIAL IV ONE (11:04)
[2018-09-20] MEDS ORDERED: IV FLUID CONTINUATION 1,000 ML IV ONE (11:07)
--- NOTE | 2018-09-20 11:10 | P.PN ---
Subjective Progress Note Date: 09/20/18 This is a 68-year-old female patient of Dr. Rose. Patient presented to the emergency room with complaints of increased vomiting. Patient reports that she had a new pain pump placed in early August and since then she's had increased episodes of GI upset including vomiting. Patient denies any episodes of diarrhea or constipation. Patient denies any change in diet. Patient denies any alcohol consumption Patient's primary care provider recommended patient come into ER for possible inpatient EGD. Patient has a history of chronic low back pain in which she follows with Dr. Pizarro for her pain in outpatient setting. Patient recently admitted with complaints of increased pain that radiated to legs. At that time patient was seen by Dr. White was believed that leg pain was due to nerve involvement with lower back etiology. Patient reports that she is still not followed up with Dr. vazquez due to multiple hospital admissions. Additional medical history includes diabetes mellitus type 2, GERD, hyperlipidemia, essential hypertension and sleep apnea. KUB x- ray completed showing nonacute abdomen. EKG completed showing normal sinus rhythm. Nonspecific T-wave abnormality. Abnormal EKG. Amylase and lipase within normal limits. Patient's blood sugar low at 71. Patient's long-acting insulin and home diabetes mellitus currently on hold. Sliding scale insulin and Accu-Cheks ordered. Patient started on D5 normal saline at 75. Dr. Vo has been consulted for GI services. This time patient maintained on clear liquid diet. Patient denies chest pain or shortness of breath. Patient denies any diarrhea or constipation. Patient denies any urinary burning or frequency. On 09/19/2018 patient is alert and oriented 3 resting comfortably in bed. Patient is still complaining of some nausea and reflux. Patient was seen by GI services. Phenergan has been added along with IV Protonix. At this time patient is still complaining of some abdominal discomfort along with chronic back pain. Patient is complaining of some urinary urgency at this time. Will start patient on Rocephin for UTI. Also repeat urinalysis and urine culture. Patient denies chest pain or shortness breath. On 09/20/2018 patient is alert and oriented 3. Patient is still complaining of some nausea. Patient to undergo EGD today per GI services. Repeat urinalysis negative for UTI. Antibiotics DC'd. Patient denies chest pain or shortness breath. Patient denies any urinary burning or frequency Objective - Vital Signs Vital signs: Vital Signs Temp 97.9 F 09/20/18 06:00 Pulse 70 09/20/18 06:00 Resp 18 09/20/18 06:00 BP 129/70 09/20/18 06:00 Pulse Ox 92 L 09/20/18 06:00 Intake & Output 09/19/18 09/20/18 09/20/18 18:59 06:59 18:59 Intake Total 450 Balance 450 Intake: Oral 450 Other: Voiding Method Toilet Toilet Diaper # Voids 4 2 2 # Bowel Movements 0 - Exam Head normocephalic Neck supple Lungs clear to auscultation bilaterally no wheezing or crackles Heart regular rate and rhythm S1-S2, no rub or gallop Abdomen is soft nontender nondistended positive bowel sounds no hepatosplenomegaly Extremities no edema Neuro alert and orientated to 3 - Labs CBC & Chem 7: 09/20/18 07:06 09/20/18 07:06 Labs: Abnormal Lab Results - Last 24 Hours (Table) 09/19/18 09/19/18 09/19/18 Range/Units 10:42 10:42 11:35 Hgb 11.3 L (11.4-16.0) gm/dL Chloride (98-107) mmol/L BUN 4 L (7-17) mg/dL Glucose 121 H (74-99) mg/dL POC Glucose (mg/dL) 117 H (75-99) mg/dL Calcium 8.3 L (8.4-10.2) mg/dL Total Protein 5.7 L (6.3-8.2) g/dL Albumin 2.8 L (3.5-5.0) g/dL 09/19/18 09/19/18 09/20/18 Range/Units 17:17 20:17 06:52 Hgb (11.4-16.0) gm/dL Chloride (98-107) mmol/L BUN (7-17) mg/dL Glucose (74-99) mg/dL POC Glucose (mg/dL) 200 H 162 H 101 H (75-99) mg/dL Calcium (8.4-10.2) mg/dL Total Protein (6.3-8.2) g/dL Albumin (3.5-5.0) g/dL 09/20/18 Range/Units 07:06 Hgb (11.4-16.0) gm/dL Chloride 108 H (98-107) mmol/L BUN 5 L (7-17) mg/dL Glucose 111 H (74-99) mg/dL POC Glucose (mg/dL) (75-99) mg/dL Calcium (8.4-10.2) mg/dL Total Protein 6.1 L (6.3-8.2) g/dL Albumin 3.0 L (3.5-5.0) g/dL Microbiology - Last 24 Hours (Table) 09/20/18 03:40 Urine Culture - Preliminary Urine,Clean Catch Assessment and Plan Assessment: 1. Nausea and vomiting. KUB x-ray completed showing nonacute abdomen. GI services have been consulted. Amylase and lipase within normal limits. Per GI services continue Protonix twice a day. Phenergan as needed has been added. Continue to monitor at this time. EGD scheduled today per GI services 2. Hypoglycemia. Patient's home medications currently on hold. Patient started D5 normal saline. Sliding scale and Accu-Cheks ordered. 3. Chronic low back pain. Patient follows with Dr. Lewis 4. Diabetes mellitus type 2. home meds currently on hold due to hypoglycemia 5. History of GERD 6. History of hyperlipidemia 7. History of essential hypertension 8. History of previous pneumonia 9. History of sleep apnea DVT prophylaxis Protonix. GI prophylaxis Lovenox Repeat UA negative I performed an examination of the patient and discussed their management with the Nurse Practitioner. I have reviewed the Nurse Practitioner's notes and agree with the documented findings and plan of care
--- NOTE | 2018-09-20 11:24 | P.PCN ---
Date of Procedure: 09/20/18 Description of Procedure: BRIEF HISTORY: The patient is a 68-year-old with a medical history significant for hypertension , hyperlipidemia, JANENE, GERD, chronic constipation likely secondary to opioid use and type 2 diabetes mellitus who presents to the hospital with complaints of nausea and vomiting. The patient reports that she has had intractable nausea and vomiting since the beginning of the year when she had surgical placement of a pain,. She reports that since that time she has been unable to keep any food down with frequent vomiting of food and liquids which she had consumed. She denies any hematemesis or coffee-ground emesis with these episodes. She reports that they're worsened when she is sitting up or leaning forward. 30 pounds of weight loss since the beginning of the year due to inability to eat or drink. She is on home therapy with Nexium. She reports a history of alternating constipation and then diarrhea after she takes laxative therapy. She reports that at baseline she is constipated, however will have multiple loose episodes after receiving laxatives or enemas. She previously had endoscopic evaluation in over 10 years ago in [place] but has had nothing recently, she believes that these were significant for possible diverticular disease or polyps. PROCEDURE PERFORMED: Esophagogastroduodenoscopy with biopsy. PREOPERATIVE DIAGNOSIS: Intractable nausea and vomiting, unintentional weight loss. ESTIMATED BLOOD LOSS: Minimal. IV sedation per anesthesia. PROCEDURE: After informed consent was obtained, the patient was brought into the endoscopy unit. IV sedation was administered by Anesthesia under continuous monitoring. Initially the Olympus GIF-190 video endoscope was inserted into the mouth. Esophagus intubated without any difficulty. It was gradually advanced into the stomach and duodenum and carefully examined. The bulb and the second part of the duodenum appeared normal. The scope at this time was withdrawn to the stomach, adequately insufflated with air, and upon careful examination, mucosa of the antrum, body, cardia and the fundus appeared grossly normal. Moderate scattered erythema with superficial erosions were noted in the antrum and body with biopsies taken. Mild scattered erythema of the cardia suggestive of gastritis with biopsies taken. The scope was then withdrawn into the esophagus. The GE junction was located at 37 cm from the incisors. The esophagus appeared normal. There were no erosions or ulcerations seen and the patient tolerated the procedure well. IMPRESSION: 1. Moderate gastritis with superficial erosions in the antrum and body, biopsied. 2. Mild gastritis of the cardia, biopsied. RECOMMENDATIONS: The findings of this examination were discussed with the patient. Okay for diet. Continue Protonix twice daily. Continue to monitor signs and symptoms. Await pathology from biopsies. Avoid NSAIDs.
[2018-09-20 12:28] LABS: Glucose,Whole Blood 111 mg/dL (75-99)
[2018-09-20 17:02] LABS: Glucose,Whole Blood 152 mg/dL (75-99)
[2018-09-20 20:44] LABS: Glucose,Whole Blood 181 mg/dL (75-99)
[2018-09-20] MEDS: [UNRECOGNIZED DRUG - OTHER] SUBLINGUAL SCH (21:23)
[2018-09-21 01:12] VITALS: RESP 18
[2018-09-21] MEDS: LEVOTHYROXINE 75 MCG TAB PO SCH (06:54)
[2018-09-21 07:36] LABS: Glucose,Whole Blood 134 mg/dL (75-99)
[2018-09-21 07:38] VITALS: PULSE 70; TEMP 98
[2018-09-21] MEDS: ATORVASTATIN 80 MG TAB PO SCH (08:13)
[2018-09-21] MEDS: INSULIN ASPART 100 UNIT/ML 1 ML 10 ML VIAL SQ SCH ×2 (08:13→13:23)
[2018-09-21] MEDS: MELOXICAM 7.5 MG TAB PO SCH (08:14)
[2018-09-21] MEDS: PANTOPRAZOLE 40 MG TABLET PO SCH (08:14)
[2018-09-21] MEDS: ASPIRIN 81 MG PO SCH (08:14)
[2018-09-21] MEDS: MONTELUKAST 10 MG TAB PO SCH (08:14)
[2018-09-21] MEDS: ENOXAPARIN 40 MG/0.4 ML SYRINGE SQ SCH (08:14)
[2018-09-21] MEDS: DULoxetine HCL 60 MG CAPSULE.DR PO SCH (08:14)
[2018-09-21] MEDS: POLYETHYLENE GLYCOL 3350 17 GM POWD.PACK PO SCH (08:15)
[2018-09-21] MEDS: PATIENT'S OWN MED (Mirabegron [Myrbetriq] 50 MG) PO SCH (08:15)
[2018-09-21] MEDS: DEXTROSE 5%-0.9% NACL 1,000 ML IV SCH (09:09)
[2018-09-21 09:18] LABS: Basophils % (A) 1 %; Eosinophils # (A) 0.5 k/uL (0-0.7); Eosinophils % (A) 7 %; HCT 41.7 % (34.0-46.0); HGB 12.8 gm/dL (11.4-16.0); Hypochromasia Slight; Lymphocytes # (A) 2.4 k/uL (1.0-4.8); Lymphocytes % (A) 34 %; MCH 26.9 pg (25.0-35.0); MCHC 30.8 g/dL (31.0-37.0); MCV 87.5 fL (80.0-100.0); Mean Platelet Volume 6.9; Monocytes # (A) 0.4 k/uL (0-1.0); Monocytes % (A) 6 %; Neutrophils # (A) 3.6 k/uL (1.3-7.7); Neutrophils % (A) 51 %; Platelet Count 264 k/uL (150-450); RBC 4.76 m/uL (3.80-5.40); RDW 15.8 % (11.5-15.5); WBC 7.1 k/uL (3.8-10.6)
[2018-09-21] MEDS: amLODIPine 5 MG TAB PO SCH (09:22)
[2018-09-21 09:37] LABS: ALT 22 U/L (9-52); AST 23 U/L (14-36); Albumin 3.3 g/dL (3.5-5.0); Alkaline Phosphatase 92 U/L (38-126); Anion Gap 5 mmol/L; Blood Urea Nitrogen 8 mg/dL (7-17); Calcium 8.9 mg/dL (8.4-10.2); Carbon Dioxide 31 mmol/L (22-30); Chloride 105 mmol/L (98-107); Glucose 120 mg/dL (74-99); Potassium 4.5 mmol/L (3.5-5.1); Sodium 141 mmol/L (137-145); Total Bilirubin 0.5 mg/dL (0.2-1.3); Total Protein 6.7 g/dL (6.3-8.2)
[2018-09-21 09:43] VITALS: BP 140/77
[2018-09-21 12:00] LABS: Glucose,Whole Blood 136 mg/dL (75-99)
--- NOTE | 2018-09-21 12:01 | P.DS ---
Providers Date of admission: 09/17/18 19:43 Expected date of discharge: 09/21/18 Attending physician: Lexie Craven Consults: 09/17/18 19:48 Consult Physician Routine Consulting Provider: Lola Hammond Consult Reason/Comments: Intractable vomiting Do you want consulting provider notified?: Yes Primary care physician: Annelise Rose [facility] Hospital Course: Discharge diagnosis 1. Nausea and vomiting. KUB x-ray completed showing nonacute abdomen. GI services have been consulted. Amylase and lipase within normal limits. Per GI services continue Protonix twice a day. Phenergan as needed has been added. Continue to monitor at this time. EGD completed showing moderate gastritis with superficial erosions in the and midbody biopsied mild gastritis of tachycardia, biopsied. Spoke to GI services. Patient has been cleared for discharge. DC on Protonix twice a day. 2. Hypoglycemia. Patient's home medications currently on hold. Patient started D5 normal saline. Sliding scale and Accu-Cheks ordered. Home meds adjusted. Lantus decreased to 30 units. Patient advised to check frequently at home 3. Chronic low back pain. Patient follows with Dr. Borja 4. Diabetes mellitus type 2. home meds currently on hold due to hypoglycemia 5. History of GERD 6. History of hyperlipidemia 7. History of essential hypertension 8. History of previous pneumonia 9. History of sleep apnea Hospital course This is a 68-year-old female patient of Dr. Rose. Patient presented to the emergency room with complaints of increased vomiting. Patient reports that she had a new pain pump placed in early August and since then she's had increased episodes of GI upset including vomiting. Patient denies any episodes of diarrhea or constipation. Patient denies any change in diet. Patient denies any alcohol consumption Patient's primary care provider recommended patient come into ER for possible inpatient EGD. Patient has a history of chronic low back pain in which she follows with Dr. Pizarro for her pain in outpatient setting. Patient recently admitted with complaints of increased pain that radiated to legs. At that time patient was seen by Dr. White was believed that leg pain was due to nerve involvement with lower back etiology. Patient reports that she is still not followed up with Dr. vazquez due to multiple hospital admissions. Additional medical history includes diabetes mellitus type 2, GERD, hyperlipidemia, essential hypertension and sleep apnea. KUB x- ray completed showing nonacute abdomen. EKG completed showing normal sinus rhythm. Nonspecific T-wave abnormality. Abnormal EKG. Amylase and lipase within normal limits. Patient's blood sugar low at 71. Patient's long-acting insulin and home diabetes mellitus currently on hold. Sliding scale insulin and Accu-Cheks ordered. Patient started on D5 normal saline at 75. Dr. Vo has been consulted for GI services. This time patient maintained on clear liquid diet. Patient denies chest pain or shortness of breath. Patient denies any diarrhea or constipation. Patient denies any urinary burning or frequency. On 09/19/2018 patient is alert and oriented 3 resting comfortably in bed. Patient is still complaining of some nausea and reflux. Patient was seen by GI services. Phenergan has been added along with IV Protonix. At this time patient is still complaining of some abdominal discomfort along with chronic back pain. Patient is complaining of some urinary urgency at this time. Will start patient on Rocephin for UTI. Also repeat urinalysis and urine culture. Patient denies chest pain or shortness breath. On 09/20/2018 patient is alert and oriented 3. Patient is still complaining of some nausea. Patient to undergo EGD today per GI services. Repeat urinalysis negative for UTI. Antibiotics DC'd. Patient denies chest pain or shortness breath. Patient denies any urinary burning or frequency On 09/21/2018 patient is alert and oriented 3. Patient states significant improvement with abdominal discomfort and nausea. Patient underwent EGD yesterday. Patient has been cleared for GI services for discharge. Patient will go on Protonix twice a day. Patient denies chest pain or shortness breath. Patient denies nausea vomiting or diarrhea. Patient denies any urinary burning or frequency. Blood sugars have improved. Insulin and diabetes medications adjusted. Patient advised to check blood sugar frequently at home and follow-up with her PCP for further management. Patient also by she needs to follow-up with Dr. borja for further evaluation and management of PainPump I performed an examination of the patient and discussed their management with the Nurse Practitioner. I have reviewed the Nurse Practitioner's notes and agree with the documented findings and plan of care. Patient Condition at Discharge: Stable Plan - Discharge Summary Discharge Rx Participant: No New Discharge Prescriptions: New Pantoprazole [Protonix] 40 mg PO AC-BID 30 Days #60 tablet.dr Continue Aspirin EC [Ecotrin Low Dose] 81 mg PO DAILY Methocarbamol [Robaxin] 500 mg PO BID PRN PRN Reason: Pain traMADol HCL [Ultram] 50 mg PO DAILY PRN PRN Reason: Pain Rosuvastatin Calcium [Crestor] 40 mg PO DAILY Levothyroxine Sodium [Synthroid] 75 mcg PO DAILY Valsartan [Diovan] 40 mg PO DAILY Celecoxib [CeleBREX] 200 mg PO DAILY Montelukast [Singulair] 10 mg PO DAILY Mirabegron [Myrbetriq] 50 mg PO DAILY DULoxetine HCL [Cymbalta] 60 mg PO DAILY Nocdurna 27.7 mcg SUBLINGUAL HS metFORMIN HCL 1,000 mg PO BID Ibuprofen [Motrin Ib] 200 mg PO Q6H PRN PRN Reason: Pain Prochlorperazine Suppository [Compazine] 25 mg RECTAL BID PRN PRN Reason: Nausea Changed Insulin Glargine [Lantus] 30 unit SQ DAILY #1 vial Discontinued Esomeprazole Magnesium [NexIUM] 40 mg PO BID Liraglutide [Victoza 2-Dread] 1.8 mg SQ DAILY Canagliflozin [Invokana] 100 mg PO DAILY Discharge Medication List Aspirin EC [Ecotrin Low Dose] 81 mg PO DAILY 04/22/16 [History] Methocarbamol [Robaxin] 500 mg PO BID PRN 04/22/16 [History] traMADol HCL [Ultram] 50 mg PO DAILY PRN 04/22/16 [History] Rosuvastatin Calcium [Crestor] 40 mg PO DAILY 06/02/16 [History] Levothyroxine Sodium [Synthroid] 75 mcg PO DAILY 11/01/17 [History] Celecoxib [CeleBREX] 200 mg PO DAILY 06/21/18 [History] DULoxetine HCL [Cymbalta] 60 mg PO DAILY 06/21/18 [History] Mirabegron [Myrbetriq] 50 mg PO DAILY 06/21/18 [History] Montelukast [Singulair] 10 mg PO DAILY 06/21/18 [History] Valsartan [Diovan] 40 mg PO DAILY 06/21/18 [History] Nocdurna 27.7 mcg SUBLINGUAL HS 08/20/18 [History] metFORMIN HCL 1,000 mg PO BID 08/20/18 [History] Ibuprofen [Motrin Ib] 200 mg PO Q6H PRN 09/15/18 [History] Prochlorperazine Suppository [Compazine] 25 mg RECTAL BID PRN 09/17/18 [History] Insulin Glargine [Lantus] 30 unit SQ DAILY #1 vial 09/21/18 [Rx] Pantoprazole [Protonix] 40 mg PO AC-BID 30 Days #60 tablet. 09/21/18 [Rx] Follow up Appointment(s)/Referral(s): Annelise Rose DO [Primary Care Provider] - 1-2 days Starr Andrade MD [Medical Doctor] - 1 Week Eliceo Snow MD [STAFF PHYSICIAN] - 1 Week Activity/Diet/Wound Care/Special Instructions: Activity as tolerated Diet carb consistent Patient to follow-up with Dr. Caldwell in regards to PainPump. Diabetes mellitus adjusted due to hypoglycemia. Patient to follow-up closely with her PCP. Patient also advised to monitor blood sugar closely at home and prior to insulin administration Discharge Disposition: HOME SELF-CARE
== END 2018-09-21 13:35 | disposition home or self-care (01) ==
LOC: EC 16:44 → 4MS4W 19:43
PROVIDERS: ADMIT Internal Medicine; ATTEND Internal Medicine
DX: K29.50 Unspecified chronic gastritis without bleeding (principal); G89.29 Other chronic pain; M54.5 Low back pain; E11.649 Type 2 diabetes mellitus with hypoglycemia without coma; K21.9 Gastro-esophageal reflux disease without esophagitis; E78.5 Hyperlipidemia, unspecified; I10 Essential (primary) hypertension; Z87.01 Personal history of pneumonia (recurrent); G47.33 Obstructive sleep apnea (adult) (pediatric); Z96.89 Presence of other specified functional implants; R94.31 Abnormal electrocardiogram [ECG] [EKG]; R39.15 Urgency of urination; K59.09 Other constipation; R63.4 Abnormal weight loss; R19.7 Diarrhea, unspecified; R07.89 Other chest pain; R13.10 Dysphagia, unspecified; E03.9 Hypothyroidism, unspecified; Z79.82 Long term (current) use of aspirin; Z79.899 Other long term (current) drug therapy; Z79.4 Long term (current) use of insulin; Z79.890 Hormone replacement therapy; Z79.84 Long term (current) use of oral hypoglycemic drugs; Z88.1 Allergy status to other antibiotic agents; Z88.5 Allergy status to narcotic agent; Z88.2 Allergy status to sulfonamides; Z99.89 Dependence on other enabling machines and devices; Z87.440 Personal history of urinary (tract) infections; Z85.3 Personal history of malignant neoplasm of breast; Z86.14 Personal history of Methicillin resistant Staphylococcus aureus infection; Z86.19 Personal history of other infectious and parasitic diseases; Z90.49 Acquired absence of other specified parts of digestive tract; Z80.6 Family history of leukemia; Z80.0 Family history of malignant neoplasm of digestive organs; Z82.49 Family history of ischemic heart disease and other diseases of the circulatory system; Z80.42 Family history of malignant neoplasm of prostate; Z98.82 Breast implant status
CPT/HCPCS: 96376 ×2; 96361 ×4; 96365 ×2; 96366 ×2; 96367 ×2; 96372; 96375; 99285; 36415; 93005; 88305; 80053 ×4; 82150; 83690; 84484; 85025 ×4; 81003; 81001; 87086 ×2; 74018; 43239; G0378 ×5; J1170; J1200 ×3; J2550 ×3; J2001; J1650 ×2; J0131 ×2; J2704

== ENCOUNTER 2018-10-01 15:16 | Inpatient (IN) | payer MEDICARE, OTHER ==
[2018-10-01] MEDS ORDERED: SODIUM CHLORIDE 0.9% 1,000 ML IV STA (15:34)
[2018-10-01] MEDS ORDERED: ONDANSETRON 4 MG/2 ML VIAL IVP STA (15:34)
--- NOTE | 2018-10-01 15:37 | ED ---
General Adult HPI - General Chief complaint: Nausea/Vomiting/Diarrhea Stated complaint: NVD Time Seen by Provider: 10/01/18 15:20 Source: patient, RN notes reviewed Mode of arrival: ambulatory Limitations: no limitations - History of Present Illness Initial comments: This is a 68-year-old female presents emergency Department complaining of losing weight and vomiting. Patient states she's been vomiting ever since she had her pain pump placed August [address] Andrade. Patient states she's been emergency department for the same problem multiple times since then and has been admitted on a couple of occasions. Patient states anytime she bends over she becomes nauseated and vomits. Patient states she hasn't been eating or drinking as much because of all this vomiting. Patient denies any fever chills per patient denies any abdominal pain. Patient denies any diarrhea. Patient denies any chest pain palpitations difficulty breathing shortness of breath. Patient denies any headache patient denies numbness weakness. Patient denies any lightheadedness dizziness or near syncopal episode. - Related Data Home Medications Medication Instructions Recorded Confirmed Aspirin EC [Ecotrin Low Dose] 81 mg PO DAILY 04/22/16 10/01/18 Methocarbamol [Robaxin] 500 mg PO BID PRN 04/22/16 10/01/18 traMADol HCL [Ultram] 50 mg PO DAILY PRN 04/22/16 10/01/18 Rosuvastatin Calcium [Crestor] 40 mg PO DAILY 06/02/16 10/01/18 Levothyroxine Sodium [Synthroid] 75 mcg PO DAILY 11/01/17 10/01/18 Celecoxib [CeleBREX] 200 mg PO DAILY 06/21/18 10/01/18 DULoxetine HCL [Cymbalta] 60 mg PO DAILY 06/21/18 10/01/18 Mirabegron [Myrbetriq] 50 mg PO DAILY 06/21/18 10/01/18 Montelukast [Singulair] 10 mg PO DAILY 06/21/18 10/01/18 Valsartan [Diovan] 40 mg PO DAILY 06/21/18 10/01/18 Nocdurna 27.7 mcg SUBLINGUAL HS 08/20/18 10/01/18 metFORMIN HCL 1,000 mg PO BID 08/20/18 10/01/18 Ibuprofen [Motrin Ib] 200 mg PO Q6H PRN 09/15/18 10/01/18 Canagliflozin [Invokana] 100 mg PO DAILY 10/01/18 10/01/18 Esomeprazole Magnesium [NexIUM] 40 mg PO DAILY 10/01/18 10/01/18 Insulin Glargine [Lantus] 66 unit SQ DAILY 10/01/18 10/01/18 Liraglutide [Victoza 2-Dread] 1.8 mg SQ DAILY 10/01/18 10/01/18 Allergies Allergy/AdvReac Type Severity Reaction Status Date / Time neomycin Allergy Itching Verified 10/01/18 16:00 Sulfa (Sulfonamide Allergy Dyspnea Verified 10/01/18 16:00 Antibiotics) sulfamethoxazole Allergy Dyspnea Verified 10/01/18 16:00 [From ] trimethoprim [From ] Allergy Dyspnea Verified 10/01/18 16:00 codeine AdvReac headache Verified 10/01/18 16:00 morphine AdvReac Itching Verified 10/01/18 16:00 Review of Systems ROS Statement: Those systems with pertinent positive or pertinent negative responses have been documented in the HPI. ROS Other: All systems not noted in ROS Statement are negative. Past Medical History Past Medical History: Cancer, Diabetes Mellitus, GERD/Reflux, Hyperlipidemia, Hypertension, Pneumonia, Sleep Apnea/CPAP/BIPAP Additional Past Medical History / Comment(s): Pt recently admitted 08/22/18 with pneumonia/sepsis possible aspiration pne, N/V, UTI, hyperkalemia and constipation. Other Hx: IDDM type II, chronic low back pain radiates to L leg/has pain pump, herniated discs, colitis, black stools, L breast cancer with mastectomy, irregular heart beat once, JANENE with Cpap, dysphagia, hypothyroid, constipation. History of Any Multi-Drug Resistant Organisms: MRSA Date of last positivie culture/infection: 04/02/17 MDRO Source:: URINE Past Surgical History: Back Surgery, Breast Surgery, Cholecystectomy, Hysterectomy Additional Past Surgical History / Comment(s): Lt Mastectomy W/ RECONSTRUCTION; RT BREAST IMPLANT. SINUS SURG X3., colonoscopy, pain pump implant Past Anesthesia/Blood Transfusion Reactions: Previous Problems w/ Anesthesia Additional Past Anesthesia/Blood Transfusion Reaction / Comment(s): HX OF DAMAGE TO VOCAL CORDS POST-OP BACK SURGERY Past Psychological History: No Psychological Hx Reported Smoking Status: Never smoker Past Alcohol Use History: None Reported Past Drug Use History: None Reported - Past Family History Father Sister(s) Family Medical History: Cancer Additional Family Medical History / Comment(s): Father had leukemia and sister had pancreatic cancer. Brother(s) Family Medical History: Cancer Additional Family Medical History / Comment(s): Prostate cancer, ANEURYSM Mother Family Medical History: No Reported History Additional Family Medical History / Comment(s): Mother was healthy. General Exam - General Exam Comments Initial Comments: GENERAL: Patient is well-developed and well-nourished. Patient is nontoxic and well- hydrated and is in mild distress. ENT: Neck is soft and supple. No significant lymphadenopathy is noted. Oropharynx is clear. Dry mucous membranes. Neck has full range of motion without eliciting any pain. EYES: The sclera were anicteric and conjunctiva were pink and moist. Extraocular movements were intact and pupils were equal round and reactive to light. Eyelids were unremarkable. PULMONARY: Unlabored respirations. Good breath sounds bilaterally. No audible rales rhonchi or wheezing was noted. CARDIOVASCULAR: There is a regular rate and rhythm without any murmurs gallops or rubs. ABDOMEN: Soft and nontender with normal bowel sounds. No palpable organomegaly was noted. There is no palpable pulsatile mass. Patient has some bruising on the left lower quadrant just below where the pain pump is. The bruising does appear to be old. SKIN: Skin is clear with no lesions or rashes and otherwise unremarkable. NEUROLOGIC: Patient is alert and oriented x3. Cranial nerves II through XII are grossly intact. Motor and sensory are also intact. Normal speech, volume and content. Symmetrical smile. MUSCULOSKELETAL: Normal extremities with adequate strength and full range of motion. LYMPHATICS: No significant lymphadenopathy is noted PSYCHIATRIC: Normal psychiatric evaluation. Limitations: no limitations Course Vital Signs 10/01/18 15:19 Temperature 97.2 F L Pulse Rate 102 H Respiratory 22 Rate Blood Pressure 156/87 O2 Sat by Pulse 98 Oximetry Medical Decision Making - Medical Decision Making Patient continues to be nauseated and does not feel comfortable going home. I spoke with Dr. Craven he agreed to admit the patient admitted the patient I consult to GI. - Lab Data Result diagrams: 10/01/18 15:39 10/01/18 15:39 Lab Results 10/01/18 10/01/18 Range/Units 15:39 15:39 WBC 9.8 (3.8-10.6) k/uL RBC 5.66 H (3.80-5.40) m/uL Hgb 16.0 D (11.4-16.0) gm/dL Hct 48.2 H (34.0-46.0) % MCV 85.2 (80.0-100.0) fL MCH 28.2 (25.0-35.0) pg MCHC 33.2 (31.0-37.0) g/dL RDW 15.5 (11.5-15.5) % Plt Count 314 (150-450) k/uL Neutrophils % 70 % Lymphocytes % 19 % Monocytes % 6 % Eosinophils % 3 % Basophils % 1 % Neutrophils # 6.9 (1.3-7.7) k/uL Lymphocytes # 1.9 (1.0-4.8) k/uL Monocytes # 0.6 (0-1.0) k/uL Eosinophils # 0.3 (0-0.7) k/uL Basophils # 0.1 (0-0.2) k/uL Sodium 139 (137-145) mmol/L Potassium 4.2 (3.5-5.1) mmol/L Chloride 93 L (98-107) mmol/L Carbon Dioxide 30 (22-30) mmol/L Anion Gap 16 mmol/L BUN 16 (7-17) mg/dL Creatinine 0.92 (0.52-1.04) mg/dL Est GFR (CKD-EPI)AfAm 75 (>60 ml/min/1.73 sqM) Est GFR (CKD-EPI)NonAf 65 (>60 ml/min/1.73 sqM) Glucose 203 H (74-99) mg/dL Calcium 11.1 H (8.4-10.2) mg/dL Total Bilirubin 1.1 (0.2-1.3) mg/dL AST 55 H (14-36) U/L ALT 45 (9-52) U/L Alkaline Phosphatase 118 (38-126) U/L Total Protein 9.4 H (6.3-8.2) g/dL Albumin 4.9 (3.5-5.0) g/dL Amylase 34 (30-110) U/L Lipase 85 (23-300) U/L Disposition Clinical Impression: Acute vomiting Disposition: ADMITTED IP TO THIS HOSP Referrals: Annelise Rose DO [Primary Care Provider] - 1-2 days Time of Disposition: 18:53
[2018-10-01 16:00] LABS: Basophils # (A) 0.1 k/uL (0-0.2); Basophils % (A) 1 %; Eosinophils # (A) 0.3 k/uL (0-0.7); Eosinophils % (A) 3 %; HCT 48.2 % (34.0-46.0); Lymphocytes # (A) 1.9 k/uL (1.0-4.8); Lymphocytes % (A) 19 %; MCH 28.2 pg (25.0-35.0); MCHC 33.2 g/dL (31.0-37.0); MCV 85.2 fL (80.0-100.0); Mean Platelet Volume 6.5; Monocytes # (A) 0.6 k/uL (0-1.0); Monocytes % (A) 6 %; Neutrophils # (A) 6.9 k/uL (1.3-7.7); Neutrophils % (A) 70 %; Platelet Count 314 k/uL (150-450); RBC 5.66 m/uL (3.80-5.40); RDW 15.5 % (11.5-15.5); WBC 9.8 k/uL (3.8-10.6)
[2018-10-01 16:08] LABS: Albumin 4.9 g/dL (3.5-5.0); Calcium 11.1 mg/dL (8.4-10.2); Potassium 4.2 mmol/L (3.5-5.1); Total Bilirubin 1.1 mg/dL (0.2-1.3); Total Protein 9.4 g/dL (6.3-8.2)
--- NOTE | 2018-10-01 16:47 | XR ---
Abdomen single view. History abdominal pain. Comparison September 17, 2018. FINDINGS: 2 views upright were obtained. Bowel gas pattern is normal. There is no sign of intestinal obstructio n or pneumoperitoneum. Fecal pattern is normal. There are clips from cholecystectomy. There is lower lumbar spine surgery noted. Lung bases are clear of consolidation. There is implanted device over the left iliac bone. There are no pathologic calcifications over the kidneys. IMPRESSION: Nonacute abdomen. No change compared to last exam.
[2018-10-01] MEDS ORDERED: KETOROLAC 30 MG/ML 1 ML VIAL IVP STA (16:48)
[2018-10-01] MEDS ORDERED: SODIUM CHLORIDE 0.9% 1,000 ML IV ONE (19:58)
[2018-10-01] MEDS ORDERED: ACETAMINOPHEN TAB 500 MG TAB PO STA (21:02)
[2018-10-01] MEDS ORDERED: ACETAMINOPHEN IV (For NPO) 1,000 MG in EMPTY BAG 1 BAG IVPB ONE (21:25)
[2018-10-01 22:14] VITALS: BMI 31.2
[2018-10-01 23:29] LABS: Appearance,Urine Cloudy (Clear); Bacteria,Urine Rare /hpf; Bilirubin,Urine Negative (Negative); Blood,Urine Negative (Negative); Color,Urine Yellow; Glucose,Urine (UA) Negative (Negative); Hyaline Casts,Urine 74 /lpf (0-2); Ketones,Urine Negative (Negative); Leukocyte Esterase,Urine Large (Negative); Mucus,Urine Many /hpf; Nitrite,Urine Negative (Negative); PH, Urine 6.5 (5.0-8.0); Protein,Urine 1+ (Negative); RBC,Urine 1 /hpf (0-5); Specific Gravity,Urine 1.018 (1.001-1.035); Squamous Epithelial Cell,Urine 7 /hpf (0-4); Urobilinogen,Urine <2.0 mg/dL (<2.0); WBC,Urine 51 /hpf (0-5)
[2018-10-02] MEDS: traMADol 50 MG TAB PO PRN ×2 (03:16→19:23)
[2018-10-02] MEDS: ONDANSETRON 4 MG/2 ML VIAL IVP PRN (03:17)
[2018-10-02] MEDS ORDERED: IBUPROFEN 200 MG TAB PO PRN (09:49)
[2018-10-02 11:30] LABS: Glucose,Whole Blood 72 mg/dL (75-99)
--- NOTE | 2018-10-02 12:16 | P.HPIM ---
History of Present Illness H&P Date: 10/02/18 This is a 68-year-old female patient of Dr. Rose. Patient presented to the hospital with complaints of acute vomiting and intermittent abdominal pain patient has a history of having. Patient reports that she's had a pain pump placed approximately [address] Lewis incident and she's been experiencing this nausea and vomiting. Patient was recently admitted about 2 weeks ago and underwent EGD at that time it was found that patient had moderate gastritis with superficial erosions in the mid body biopsy mild gastritis. At that time patient was DC'd with Protonix twice a day. Patient unable to recall if she was taking his Protonix at home. Patient also reports she still has not followed up with Dr. Lewis for evaluation of pain pump. She does report she' s been having normal bowel movements some appear darker. Additional medical history includes breast cancer, diabetes mellitus, GERD, hyperlipidemia, hypertension, pneumonia, sleep apnea. KUB x-ray completed showing nonacute abdomen. No change compared to last exam. Urinary analysis is showing some leukocyte Estrace but also showing potential contamination will order repeat UA. Patient asymptomatic at this time. At this time patient denies nausea vomiting and requesting diet. Patient denies any urinary burning or frequency. Patient denies chest pain or shortness of breath. Review of Systems Please refer to HPI otherwise unremarkable Past Medical History Past Medical History: Cancer, Diabetes Mellitus, GERD/Reflux, Hyperlipidemia, Hypertension, Pneumonia, Sleep Apnea/CPAP/BIPAP Additional Past Medical History / Comment(s): Pt recently admitted 08/22/18 with pneumonia/sepsis possible aspiration pne, N/V, UTI, hyperkalemia and constipation. Other Hx: IDDM type II, chronic low back pain radiates to L leg/has pain pump, herniated discs, colitis, black stools, L breast cancer with mastectomy, irregular heart beat once, JANENE with Cpap, dysphagia, hypothyroid, constipation. History of Any Multi-Drug Resistant Organisms: MRSA Date of last positivie culture/infection: 04/02/17 MDRO Source:: URINE Past Surgical History: Back Surgery, Breast Surgery, Cholecystectomy, Hysterectomy Additional Past Surgical History / Comment(s): Lt Mastectomy W/ RECONSTRUCTION; RT BREAST IMPLANT. SINUS SURG X3., colonoscopy, pain pump implant Past Anesthesia/Blood Transfusion Reactions: Previous Problems w/ Anesthesia Additional Past Anesthesia/Blood Transfusion Reaction / Comment(s): HX OF DAMAGE TO VOCAL CORDS POST-OP BACK SURGERY Past Psychological History: No Psychological Hx Reported Additional Psychological History / Comment(s): Pt resides with her spouse. She uses a cane or walker to ambulate. She has a pain pump d/t back pain. She has a glucometer. She recently established with [facility]. Smoking Status: Never smoker Past Alcohol Use History: None Reported Past Drug Use History: None Reported - Past Family History Father Sister(s) Family Medical History: Cancer Additional Family Medical History / Comment(s): Father had leukemia and sister had pancreatic cancer. Brother(s) Family Medical History: Cancer Additional Family Medical History / Comment(s): Prostate cancer, ANEURYSM Mother Family Medical History: No Reported History Additional Family Medical History / Comment(s): Mother was healthy. Medications and Allergies Home Medications Medication Instructions Recorded Confirmed Type Aspirin EC [Ecotrin Low Dose] 81 mg PO DAILY 04/22/16 10/01/18 History Methocarbamol [Robaxin] 500 mg PO BID PRN 04/22/16 10/01/18 History traMADol HCL [Ultram] 50 mg PO DAILY PRN 04/22/16 10/01/18 History Rosuvastatin Calcium [Crestor] 40 mg PO DAILY 06/02/16 10/01/18 History Levothyroxine Sodium [Synthroid] 75 mcg PO DAILY 11/01/17 10/01/18 History Celecoxib [CeleBREX] 200 mg PO DAILY 06/21/18 10/01/18 History DULoxetine HCL [Cymbalta] 60 mg PO DAILY 06/21/18 10/01/18 History Mirabegron [Myrbetriq] 50 mg PO DAILY 06/21/18 10/01/18 History Montelukast [Singulair] 10 mg PO DAILY 06/21/18 10/01/18 History Valsartan [Diovan] 40 mg PO DAILY 06/21/18 10/01/18 History Nocdurna 27.7 mcg SUBLINGUAL HS 08/20/18 10/01/18 History metFORMIN HCL 1,000 mg PO BID 08/20/18 10/01/18 History Ibuprofen [Motrin Ib] 200 mg PO Q6H PRN 09/15/18 10/01/18 History Canagliflozin [Invokana] 100 mg PO DAILY 10/01/18 10/01/18 History Esomeprazole Magnesium [NexIUM] 40 mg PO DAILY 10/01/18 10/01/18 History Insulin Glargine [Lantus] 66 unit SQ DAILY 10/01/18 10/01/18 History Liraglutide [Victoza 2-Dread] 1.8 mg SQ DAILY 10/01/18 10/01/18 History Allergies Allergy/AdvReac Type Severity Reaction Status Date / Time neomycin Allergy Itching Verified 10/01/18 22:16 Sulfa (Sulfonamide Allergy Dyspnea Verified 10/01/18 22:16 Antibiotics) sulfamethoxazole Allergy Dyspnea Verified 10/01/18 22:16 [From ] trimethoprim [From ] Allergy Dyspnea Verified 10/01/18 22:16 codeine AdvReac headache Verified 10/01/18 22:16 morphine AdvReac Itching Verified 10/01/18 22:16 Physical Exam Vitals: Vital Signs Temp Pulse Pulse Pulse Resp BP BP 10/02/18 11:31 97.6 F 70 16 112/54 10/02/18 05:16 97.5 F L 76 18 106/73 10/01/18 22:04 79 113/71 10/01/18 22:02 97.6 F 101 H 18 135/87 10/01/18 21:26 97.5 F L 77 16 124/60 10/01/18 15:19 97.2 F L 102 H 22 156/87 Pulse Ox 10/02/18 11:31 90 L 10/02/18 05:16 92 L 10/01/18 22:04 94 L 10/01/18 22:02 92 L 10/01/18 21:26 99 10/01/18 15:19 98 Intake and Output 10/01/18 10/02/18 10/02/18 22:59 06:59 14:59 Intake Total 600 Balance 600 Intake: IV 600 Sodium Chloride 0.9% 1, 600 000 ml @ 75 mls/hr IV . [id number] ONE Rx#:[id number] Other: Voiding Method Toilet # Voids 1 1 Weight 82.1 kg Head normocephalic Neck supple Lungs clear to auscultation bilaterally no wheezing or crackles Heart regular rate and rhythm S1-S2, no rub or gallop Abdomen is soft nontender nondistended positive bowel sounds no hepatosplenomegaly Extremities no edema Neuro alert and orientated to 3 Results CBC & Chem 7: 10/01/18 15:39 10/01/18 15:39 Labs: Abnormal Lab Results - Last 24 Hours (Table) 10/01/18 10/01/18 10/01/18 Range/Units 15:39 15:39 23:00 RBC 5.66 H (3.80-5.40) m/uL Hct 48.2 H (34.0-46.0) % Chloride 93 L (98-107) mmol/L Glucose 203 H (74-99) mg/dL POC Glucose (mg/dL) (75-99) mg/dL Calcium 11.1 H (8.4-10.2) mg/dL AST 55 H (14-36) U/L Total Protein 9.4 H (6.3-8.2) g/dL Urine Appearance Cloudy H (Clear) Urine Protein 1+ H (Negative) Ur Leukocyte Esterase Large H (Negative) Urine WBC 51 H (0-5) /hpf Ur Squamous Epith Cells 7 H (0-4) /hpf Urine Bacteria Rare H (None) /hpf Hyaline Casts 74 H (0-2) /lpf Urine Mucus Many H (None) /hpf 10/02/18 Range/Units 11:29 RBC (3.80-5.40) m/uL Hct (34.0-46.0) % Chloride (98-107) mmol/L Glucose (74-99) mg/dL POC Glucose (mg/dL) 72 L (75-99) mg/dL Calcium (8.4-10.2) mg/dL AST (14-36) U/L Total Protein (6.3-8.2) g/dL Urine Appearance (Clear) Urine Protein (Negative) Ur Leukocyte Esterase (Negative) Urine WBC (0-5) /hpf Ur Squamous Epith Cells (0-4) /hpf Urine Bacteria (None) /hpf Hyaline Casts (0-2) /lpf Urine Mucus (None) /hpf Thrombosis Risk Factor Assmnt - Choose All That Apply Each Risk Factor Represents 2 Points: Age 61-74 years Thrombosis Risk Factor Assessment Total Risk Factor Score: 2 Thrombosis Risk Factor Assessment Level: Low Risk Assessment and Plan Assessment: 1. Nausea and vomiting with abdominal pain KUB x-ray completed in the ER showing nonacute abdomen. No change compared to last exam. Patient recently underwent EGD and was found to have moderate gastritis with superficial erosions in the antrum and body. GI services have been consulted. Amylase and lipase within normal limits. Patient started on clear liquid diet. Her Tenex twice a day reordered 2. Chronic back pain. Patient recently had pain pump placed at beginning of August with Dr. lewis. Patient has yet to follow-up for further evaluation of the PainPump. 3. Hypothyroidism Synthroid resumed 4. History of hyperlipidemia 5. Diabetes mellitus. Home meds resumed. Patient had episodes of hypoglycemia during last visit. At that time and chronic Victoza were DC'd. Lantus also decreased to 30. Will change orders to reflect updated medications 6. History of GERD 7. History of hyperlipidemia 8. History of essential hypertension 9. History of sleep apnea DVT prophylaxis Lovenox. GI prophylaxis Protonix Time with Patient: Greater than 30 (Greater than 60% of the total time spent in counseling and coordination of care. I performed an examination of the patient and discussed their management with the Nurse Practitioner. I have reviewed the Nurse Practitioner's notes and agree with the documented findings and plan of care)
--- NOTE | 2018-10-02 14:58 | CONS ---
CONSULTATION DATE OF CONSULTATION: October 02, 2018. REASON FOR CONSULTATION: Nausea and vomiting. HISTORY: The patient is a 68-year-old female in who was admitted through the emergency room because of nausea and vomiting. The patient was hospitalized earlier this month and underwent an upper endoscopy for similar complaints and was noted to have moderate gastritis with superficial erosions in the antrum and body. Biopsies were negative for H pylori and she was discharged on Protonix. The patient has a history of hypertension, hyperlipidemia, obstructive sleep apnea, gastroesophageal reflux disease, and chronic constipation. She also has a history of type 2 diabetes mellitus. She has a chronic pain and in July of 2018, she had underwent pain pump placement and apparently her symptoms have started after that, but mostly in August 2018. The patient reports worsening symptoms with the movement and apparently she vomits when she bends forward, but she also feels lightheaded and dizzy as well. She does have a history of acid reflux and denied dysphagia, odynophagia, or hematemesis. PAST MEDICAL HISTORY: Includes diabetes mellitus, gastroesophageal reflux disease, hyperlipidemia, hypertension, obstructive sleep apnea, and pneumonia. She also has history of chronic low back pain radiating to her left leg and has a pain pump as mentioned above. There is a history of left breast cancer and hypothyroidism and constipation. Prior surgeries include back surgery, breast surgery, cholecystectomy, and hysterectomy in addition to the right breast implant and colonoscopy, EGD, and pain pump implant. SOCIAL HISTORY: She does not smoke or drink alcohol. FAMILY HISTORY: Positive for leukemia in her father and pancreatic cancer in her sister. Her mother has no reported illnesses. REVIEW OF SYSTEMS: A 12-point review of systems is otherwise not revealing other than what is mentioned in the present illness above. PHYSICAL EXAMINATION: She appeared stated age. Very pleasant, in no acute distress. Temperature 97.5, pulse 76, respiration 18, blood pressure 106/73. Head and neck: Normocephalic and atraumatic. Conjunctivae pink. Sclerae not icteric. No masses in the neck or tracheal shift. No adenopathy or thyroid megaly. LUNGS: Clear to auscultation with no dullness to percussion. HEART: Regular. No abnormal sounds, murmurs, gallops or friction rubs. ABDOMEN: Soft, nondistended. No masses or organomegaly. Bowel sounds positive. EXTREMITIES: No clubbing, cyanosis, or edema. Neurologic examination: She appeared alert, oriented x3. She had cranial nerves showed grossly intact. No gross sensory or motor abnormalities and no nystagmus. ALLERGIES: NEOMYCIN, SULFA, CODEINE, AND MORPHINE SULFATE. LABORATORY: Workup reviewed. Her white cell count is not elevated. Hemoglobin 16. Electrolytes essentially normal. Sugar 203. Liver enzymes revealed normal bilirubin. AST slightly elevated at 55, ALT normal. Albumin 4.9, had normal lipase. Urine is cloudy with large leukocyte esterase and 51 white cells per high-power field. ASSESSMENT: Nausea and vomiting could be related to gastritis. However, since her symptoms are described to be positional, we should keep in mind other etiology of nausea and vomiting including central causes. SUGGESTIONS: I agree with your current management. Since the patient underwent a recent upper endoscopy, I did not schedule any repeat exams at this time. We will continue acid suppressive therapy for her gastritis and consideration can be given to a trial with Antivert if you think this is appropriate. We thank you for having us participate in the care of this patient. We will follow with you with interest. MMODL / IJN: [id number] /
[2018-10-02] MEDS: metFORMIN 500 MG TAB PO SCH (16:52)
[2018-10-02] MEDS: PANTOPRAZOLE 40 MG TABLET PO SCH (16:53)
[2018-10-02 17:39] LABS: Glucose,Whole Blood 138 mg/dL (75-99)
[2018-10-02] MEDS: DESMOPRESSIN SUBLINGUAL SCH (19:21)
[2018-10-02 20:16] LABS: Hemoglobin A1C 7.1 % (4.0-6.0)
[2018-10-02 20:35] LABS: Glucose,Whole Blood 144 mg/dL (75-99)
[2018-10-03] MEDS: IBUPROFEN 400 MG TAB PO PRN ×2 (00:29→22:55)
[2018-10-03] MEDS: METHOCARBAMOL 500 MG TAB PO PRN ×2 (01:53→22:08)
[2018-10-03] MEDS: ONDANSETRON 4 MG/2 ML VIAL IVP PRN ×2 (04:18→21:34)
[2018-10-03] MEDS: LEVOTHYROXINE 75 MCG TAB PO SCH (05:19)
[2018-10-03 07:00] LABS: Glucose,Whole Blood 89 mg/dL (75-99)
[2018-10-03 07:01] LABS: Basophils # (A) 0.1 k/uL (0-0.2); Basophils % (A) 1 %; Eosinophils # (A) 0.5 k/uL (0-0.7); Eosinophils % (A) 6 %; HCT 38.6 % (34.0-46.0); Lymphocytes # (A) 2.1 k/uL (1.0-4.8); Lymphocytes % (A) 29 %; MCH 28.4 pg (25.0-35.0); MCHC 32.6 g/dL (31.0-37.0); Mean Platelet Volume 6.5; Monocytes # (A) 0.4 k/uL (0-1.0); Monocytes % (A) 6 %; Neutrophils # (A) 4.1 k/uL (1.3-7.7); Neutrophils % (A) 57 %; Platelet Count 253 k/uL (150-450); RBC 4.44 m/uL (3.80-5.40); RDW 15.2 % (11.5-15.5); WBC 7.1 k/uL (3.8-10.6)
[2018-10-03 07:09] LABS: HGB 12.6 gm/dL (11.4-16.0)
[2018-10-03 07:13] LABS: Albumin 3.3 g/dL (3.5-5.0); Calcium 9.1 mg/dL (8.4-10.2); Potassium 4.2 mmol/L (3.5-5.1); Total Bilirubin 0.5 mg/dL (0.2-1.3); Total Protein 6.5 g/dL (6.3-8.2)
[2018-10-03] MEDS ORDERED: PANTOPRAZOLE 40 MG TABLET PO SCH (07:30)
[2018-10-03] MEDS: metFORMIN 500 MG TAB PO SCH ×2 (08:31→17:31)
[2018-10-03] MEDS: MELOXICAM 7.5 MG TAB PO SCH (08:31)
[2018-10-03] MEDS: ATORVASTATIN 80 MG TAB PO SCH (08:31)
[2018-10-03] MEDS: VALSARTAN 40 MG TAB PO SCH (08:32)
[2018-10-03] MEDS: DULoxetine HCL 60 MG CAPSULE.DR PO SCH (08:32)
[2018-10-03] MEDS: PANTOPRAZOLE 40 MG TABLET PO SCH ×2 (08:32→17:31)
[2018-10-03] MEDS: ASPIRIN 81 MG PO SCH (08:32)
[2018-10-03] MEDS: MONTELUKAST 10 MG TAB PO SCH (08:32)
[2018-10-03] MEDS: ENOXAPARIN 40 MG/0.4 ML SYRINGE SQ SCH (08:32)
[2018-10-03] MEDS: INSULIN DETEMIR (LEVEMIR) 100 UNIT/ML SYR SQ SCH (08:33)
[2018-10-03] MEDS: Mirabegron [Myrbetriq] PO SCH (08:34)
[2018-10-03] MEDS ORDERED: Canagliflozin [Invokana] PO SCH (09:00)
[2018-10-03] MEDS ORDERED: INSULIN DETEMIR (LEVEMIR) 100 UNIT/ML SYR SQ SCH (09:00)
[2018-10-03 11:22] LABS: Glucose,Whole Blood 150 mg/dL (75-99)
--- NOTE | 2018-10-03 13:48 | P.PN ---
Subjective Progress Note Date: 10/03/18 This is a 68-year-old female patient of Dr. Rose. Patient presented to the hospital with complaints of acute vomiting and intermittent abdominal pain patient has a history of having. Patient reports that she's had a pain pump placed approximately [address] Debbie fournier and she's been experiencing this nausea and vomiting. Patient was recently admitted about 2 weeks ago and underwent EGD at that time it was found that patient had moderate gastritis with superficial erosions in the mid body biopsy mild gastritis. At that time patient was DC'd with Protonix twice a day. Patient unable to recall if she was taking his Protonix at home. Patient also reports she still has not followed up with Dr. Borja for evaluation of pain pump. She does report she' s been having normal bowel movements some appear darker. Additional medical history includes breast cancer, diabetes mellitus, GERD, hyperlipidemia, hypertension, pneumonia, sleep apnea. KUB x-ray completed showing nonacute abdomen. No change compared to last exam. Urinary analysis is showing some leukocyte Estrace but also showing potential contamination will order repeat UA. Patient asymptomatic at this time. At this time patient denies nausea vomiting and requesting diet. Patient denies any urinary burning or frequency. Patient denies chest pain or shortness of breath. On 10/03/2018 patient was seen and examined on the medical floor she is alert and oriented 3 in no apparent distress vital examination is stable, there is no fever or chills no headache no dizziness no chest pain no shortness of breath no cough no nausea or vomiting no abdominal pain no diarrhea and no urinary symptoms Objective - Vital Signs Vital signs: Vital Signs Temp 97.9 F 10/03/18 05:00 Pulse 78 10/03/18 05:00 Resp 18 10/03/18 05:00 BP 111/61 10/03/18 08:40 Pulse Ox 92 L 10/03/18 05:00 Intake & Output 10/02/18 10/03/18 10/03/18 18:59 06:59 18:59 Intake Total 400 Balance 400 Intake: Oral 400 Other: Voiding Method Toilet Toilet Toilet # Voids 1 - Exam In general patient is alert and oriented 3 in no apparent distress HEENT head normocephalic and atraumatic Neck is supple no JVD no goiter no lymphadenopathy Chest exam reveals a few scattered crackles no wheezing Cardiac exam reveals regular heart sounds no gallops no murmurs Abdomen is soft nontender no organomegaly with normal bowel sounds Extremity exam reveals no edema no cyanosis or clubbing - Labs CBC & Chem 7: 10/03/18 06:21 10/03/18 06:21 Labs: Abnormal Lab Results - Last 24 Hours (Table) 10/01/18 10/02/18 10/02/18 Range/Units 15:39 17:28 20:34 POC Glucose (mg/dL) 138 H 144 H (75-99) mg/dL Hemoglobin A1c 7.1 H (4.0-6.0) % Albumin (3.5-5.0) g/dL 10/03/18 10/03/18 Range/Units 06:21 11:21 POC Glucose (mg/dL) 150 H (75-99) mg/dL Hemoglobin A1c (4.0-6.0) % Albumin 3.3 L (3.5-5.0) g/dL Assessment and Plan Plan: 1. Nausea and vomiting with abdominal pain KUB x-ray completed in the ER showing nonacute abdomen. No change compared to last exam. Patient recently underwent EGD and was found to have moderate gastritis with superficial erosions in the antrum and body. GI services have been consulted. Amylase and lipase within normal limits. Patient started on clear liquid diet. Her Tenex twice a day reordered 2. Chronic back pain. Patient recently had pain pump placed at beginning of August with Dr. borja. Patient has yet to follow-up for further evaluation of the PainPump. 3. Hypothyroidism Synthroid resumed 4. History of hyperlipidemia 5. Diabetes mellitus. Home meds resumed. Patient had episodes of hypoglycemia during last visit. At that time and chronic Victoza were DC'd. Lantus also decreased to 30. Will change orders to reflect updated medications 6. History of GERD 7. History of hyperlipidemia 8. History of essential hypertension 9. History of sleep apnea DVT prophylaxis Lovenox. GI prophylaxis Protonix GI input noted At this point will advance diet to soft diet. If stable patient can be discharged tomorrow she will follow-up was Dr. Andrade for evaluation of her pain pump
[2018-10-03 17:08] LABS: Glucose,Whole Blood 197 mg/dL (75-99)
[2018-10-03] MEDS: DESMOPRESSIN SUBLINGUAL SCH (19:49)
[2018-10-03 21:11] LABS: Glucose,Whole Blood 190 mg/dL (75-99)
[2018-10-03] MEDS: traMADol 50 MG TAB PO PRN (21:34)
[2018-10-04] MEDS: LEVOTHYROXINE 75 MCG TAB PO SCH (05:37)
[2018-10-04 06:57] LABS: Glucose,Whole Blood 140 mg/dL (75-99)
[2018-10-04] MEDS: metFORMIN 500 MG TAB PO SCH (07:56)
[2018-10-04] MEDS: PANTOPRAZOLE 40 MG TABLET PO SCH (07:56)
[2018-10-04] MEDS: ATORVASTATIN 80 MG TAB PO SCH (07:56)
[2018-10-04] MEDS: ASPIRIN 81 MG PO SCH (07:56)
[2018-10-04] MEDS: VALSARTAN 40 MG TAB PO SCH (07:57)
[2018-10-04] MEDS: MELOXICAM 7.5 MG TAB PO SCH (07:57)
[2018-10-04] MEDS: DULoxetine HCL 60 MG CAPSULE.DR PO SCH (07:57)
[2018-10-04] MEDS: ENOXAPARIN 40 MG/0.4 ML SYRINGE SQ SCH (07:57)
[2018-10-04] MEDS: MONTELUKAST 10 MG TAB PO SCH (07:57)
[2018-10-04] MEDS: Mirabegron [Myrbetriq] PO SCH (07:58)
[2018-10-04] MEDS: INSULIN DETEMIR (LEVEMIR) 100 UNIT/ML SYR SQ SCH (07:59)
--- NOTE | 2018-10-04 08:57 | P.PN ---
Subjective Progress Note Date: 10/04/18 Principal diagnosis: Nausea vomiting Feels well. Recent EGD moderate gastritis superficial erosions in antrum and body. Tolerating diet. Afebrile. denies N/V. Objective - Vital Signs Vital signs: Vital Signs Temp 98.2 F 10/04/18 05:00 Pulse 76 10/04/18 05:00 Resp 16 10/04/18 05:00 BP 115/68 10/04/18 05:00 Pulse Ox 94 L 10/04/18 05:00 Intake & Output 10/03/18 10/04/18 10/04/18 18:59 06:59 18:59 Intake Total 200 Output Total 700 Balance -500 Intake: Oral 200 Output: Urine 700 Other: Voiding Method Toilet Toilet # Voids 3 1 - Exam General appearance: The patient is alert, oriented, in no acute distress. HET: Head is normocephalic and atraumatic. Pupils are equal and reactive. Oropharynx is clear without lesions. Neck: Supple without lymphadenopathy. Trachea midline. Heart: S1 S2. Regular rate and rhythm. Lungs: No crackles or wheezes are heard. Abdomen: Soft, nontender, nondistended with bowel sounds. No peritoneal signs. No palpable organomegaly or masses. Extremities: Normal skin color and turgor. No cyanosis, rash, ulceration, clubbing, or edema. Radial and pedal pulses are 2/4 bilaterally. Neurological: No focal deficits. Strength and sensation are grossly intact. - Labs CBC & Chem 7: 10/03/18 06:21 10/03/18 06:21 Labs: Abnormal Lab Results - Last 24 Hours (Table) 10/03/18 10/03/18 10/03/18 Range/Units 11:21 17:06 21:02 POC Glucose (mg/dL) 150 H 197 H 190 H (75-99) mg/dL 10/04/18 Range/Units 06:55 POC Glucose (mg/dL) 140 H (75-99) mg/dL Assessment and Plan (1) Gastritis Current Visit: Yes Status: Acute Code(s): K29.70 - GASTRITIS, UNSPECIFIED, WITHOUT BLEEDING SNOMED Code(s): 8785015 (2) Nausea & vomiting Narrative/Plan: Resolved Current Visit: Yes Status: Acute Code(s): R11.2 - NAUSEA WITH VOMITING, UNSPECIFIED SNOMED Code(s): 99679658 Plan: Spoke w/attending patient is discharged today. Continue with GI prophylaxis. Light diet as tolerated. Repeat endoscopy not planned at this time earlier endoscopy this month reported moderate gastritis superficial erosions in the antrum and body. Will follow as needed. Assessment and plan a care discussed with Dr. Snow
[2018-10-04 09:13] LABS: Basophils # (A) 0.1 k/uL (0-0.2); Basophils % (A) 1 %; Eosinophils # (A) 0.5 k/uL (0-0.7); Eosinophils % (A) 5 %; HCT 41.1 % (34.0-46.0); HGB 13.3 gm/dL (11.4-16.0); Hypochromasia Slight; Lymphocytes # (A) 1.7 k/uL (1.0-4.8); Lymphocytes % (A) 18 %; MCH 28.4 pg (25.0-35.0); MCHC 32.4 g/dL (31.0-37.0); MCV 87.7 fL (80.0-100.0); Mean Platelet Volume 6.4; Monocytes # (A) 0.7 k/uL (0-1.0); Monocytes % (A) 7 %; Neutrophils # (A) 6.6 k/uL (1.3-7.7); Neutrophils % (A) 68 %; Platelet Count 259 k/uL (150-450); RBC 4.68 m/uL (3.80-5.40); RDW 15.3 % (11.5-15.5); WBC 9.6 k/uL (3.8-10.6)
[2018-10-04 09:30] LABS: ALT 34 U/L (9-52); AST 23 U/L (14-36); Albumin 3.6 g/dL (3.5-5.0); Alkaline Phosphatase 100 U/L (38-126); Anion Gap 8 mmol/L; Blood Urea Nitrogen 10 mg/dL (7-17); Calcium 9.4 mg/dL (8.4-10.2); Carbon Dioxide 30 mmol/L (22-30); Chloride 103 mmol/L (98-107); Glucose 151 mg/dL (74-99); Sodium 141 mmol/L (137-145); Total Bilirubin 0.5 mg/dL (0.2-1.3)
[2018-10-04 11:17] LABS: Glucose,Whole Blood 167 mg/dL (75-99)
[2018-10-04 12:03] VITALS: BP 95/57; PULSE 71; RESP 17; TEMP 97.9
--- NOTE | 2018-10-04 13:06 | P.DS ---
Providers Date of admission: 10/01/18 18:53 Expected date of discharge: 10/04/18 Attending physician: Lexie Craven Consults: 10/01/18 19:58 Consult Physician Urgent Consulting Provider: Johnson Duarte Consult Reason/Comments: GI bleed Do you want consulting provider notified?: Yes Primary care physician: Annelise Rose [facility] Course: Discharge diagnosis 1. Nausea and vomiting with abdominal pain KUB x-ray completed in the ER showing nonacute abdomen. No change compared to last exam. Patient recently underwent EGD and was found to have moderate gastritis with superficial erosions in the antrum and body. GI services have been consulted. Amylase and lipase within normal limits. Per GI services continue GI prophylaxis Protonix. Light diet as tolerated. Patient has been cleared for discharge 2. Chronic back pain. Patient recently had pain pump placed at beginning of August with Dr. borja. Patient has yet to follow-up for further evaluation of the PainPump. 3. Hypothyroidism Synthroid resumed 4. History of hyperlipidemia 5. Diabetes mellitus. Home meds resumed. Patient had episodes of hypoglycemia during last visit. At that time and chronic Victoza were DC'd. Lantus also decreased to 30. Will change orders to reflect updated medications. Patient's blood sugars have remained stable. We'll continue with current IVs medication with invokana and victoza d/c and Lantus decreased to 30 6. History of GERD 7. History of hyperlipidemia 8. History of essential hypertension 9. History of sleep apnea Hospital course This is a 68-year-old female patient of Dr. Rose. Patient presented to the hospital with complaints of acute vomiting and intermittent abdominal pain patient has a history of having. Patient reports that she's had a pain pump placed approximately [address] Borja incident and she's been experiencing this nausea and vomiting. Patient was recently admitted about 2 weeks ago and underwent EGD at that time it was found that patient had moderate gastritis with superficial erosions in the mid body biopsy mild gastritis. At that time patient was DC'd with Protonix twice a day. Patient unable to recall if she was taking his Protonix at home. Patient also reports she still has not followed up with Dr. Borja for evaluation of pain pump. She does report she' s been having normal bowel movements some appear darker. Additional medical history includes breast cancer, diabetes mellitus, GERD, hyperlipidemia, hypertension, pneumonia, sleep apnea. KUB x-ray completed showing nonacute abdomen. No change compared to last exam. Urinary analysis is showing some leukocyte Estrace but also showing potential contamination will order repeat UA. Patient asymptomatic at this time. At this time patient denies nausea vomiting and requesting diet. Patient denies any urinary burning or frequency. Patient denies chest pain or shortness of breath. On 10/03/2018 patient was seen and examined on the medical floor she is alert and oriented 3 in no apparent distress vital examination is stable, there is no fever or chills no headache no dizziness no chest pain no shortness of breath no cough no nausea or vomiting no abdominal pain no diarrhea and no urinary symptoms on 10/04/2018 patient's alert and oriented 3. Patient denies any nausea vomiting or diarrhea. Patient states she feels ready to go. She has been cleared for discharge from GI standpoint. Patient again advised the importance following up with neurology services for management of pain pump. Patient also DC'd on Protonix. During previous admission patient had episodes of hypoglycemia. At that time diabetes medication were adjusted. We'll continue with the Invokana and Victoza DC'd and Lantus decreased to 30. At this time patient denies chest pain or shortness of breath. Patient denies nausea vomiting or diarrhea. Patient denies any urinary burning or frequency. Patient 's initial UA on admission did show positive leukocyte esterase with possible contamination. Patient is asymptomatic. Patient advised to follow-up PCP for further evaluation of urinary analysis I performed an examination of the patient and discussed their management with the Nurse Practitioner. I have reviewed the Nurse Practitioner's notes and agree with the documented findings and plan of care Patient Condition at Discharge: Stable Plan - Discharge Summary Discharge Rx Participant: No New Discharge Prescriptions: New Insulin Detemir (Levemir) [Levemir] 30 unit SQ DAILY syr Pantoprazole [Protonix] 40 mg PO AC-BID #60 tablet. Continue Aspirin EC [Ecotrin Low Dose] 81 mg PO DAILY Methocarbamol [Robaxin] 500 mg PO BID PRN PRN Reason: Pain traMADol HCL [Ultram] 50 mg PO DAILY PRN PRN Reason: Pain Rosuvastatin Calcium [Crestor] 40 mg PO DAILY Levothyroxine Sodium [Synthroid] 75 mcg PO DAILY Valsartan [Diovan] 40 mg PO DAILY Celecoxib [CeleBREX] 200 mg PO DAILY Montelukast [Singulair] 10 mg PO DAILY Mirabegron [Myrbetriq] 50 mg PO DAILY DULoxetine HCL [Cymbalta] 60 mg PO DAILY Nocdurna 27.7 mcg SUBLINGUAL HS metFORMIN HCL 1,000 mg PO BID Ibuprofen [Motrin Ib] 200 mg PO Q6H PRN PRN Reason: Pain Discontinued Liraglutide [Victoza 2-Dread] 1.8 mg SQ DAILY Insulin Glargine [Lantus] 66 unit SQ DAILY Esomeprazole Magnesium [NexIUM] 40 mg PO DAILY Canagliflozin [Invokana] 100 mg PO DAILY Discharge Medication List Aspirin EC [Ecotrin Low Dose] 81 mg PO DAILY 04/22/16 [History] Methocarbamol [Robaxin] 500 mg PO BID PRN 04/22/16 [History] traMADol HCL [Ultram] 50 mg PO DAILY PRN 04/22/16 [History] Rosuvastatin Calcium [Crestor] 40 mg PO DAILY 06/02/16 [History] Levothyroxine Sodium [Synthroid] 75 mcg PO DAILY 11/01/17 [History] Celecoxib [CeleBREX] 200 mg PO DAILY 06/21/18 [History] DULoxetine HCL [Cymbalta] 60 mg PO DAILY 06/21/18 [History] Mirabegron [Myrbetriq] 50 mg PO DAILY 06/21/18 [History] Montelukast [Singulair] 10 mg PO DAILY 06/21/18 [History] Valsartan [Diovan] 40 mg PO DAILY 06/21/18 [History] Nocdurna 27.7 mcg SUBLINGUAL HS 08/20/18 [History] metFORMIN HCL 1,000 mg PO BID 08/20/18 [History] Ibuprofen [Motrin Ib] 200 mg PO Q6H PRN 09/15/18 [History] Insulin Detemir (Levemir) [Levemir] 30 unit SQ DAILY syr 10/04/18 [Rx] Pantoprazole [Protonix] 40 mg PO AC-BID #60 tablet. 10/04/18 [Rx] Follow up Appointment(s)/Referral(s): [facility], [NON-STAFF] - As Needed Annelise Rose DO [Primary Care Provider] - 1-2 days Starr Andrade MD [Family Provider] - 1 Week Activity/Diet/Wound Care/Special Instructions: Activity as tolerated Light diet as tolerated Patient to follow-up with PCP in regards to follow-up for UA. At this time patient is asymptomatic Patient instructed on the importance of following up with Dr. Chew for evaluation of pain pump Discharge Disposition: HOME SELF-CARE
[2018-10-04 13:55] LABS: Appearance,Urine Clear (Clear); Bilirubin,Urine Negative (Negative); Blood,Urine Negative (Negative); Color,Urine Light Yellow; Glucose,Urine (UA) Negative (Negative); Ketones,Urine Negative (Negative); Leukocyte Esterase,Urine Negative (Negative); Nitrite,Urine Negative (Negative); Protein,Urine Negative (Negative); Specific Gravity,Urine 1.003 (1.001-1.035); Urobilinogen,Urine <2.0 mg/dL (<2.0)
== END 2018-10-04 15:04 | disposition home or self-care (01) | DRG 392 ==
LOC: EC 15:16 → 3NMEDONC 18:53
PROVIDERS: ADMIT Internal Medicine; ATTEND Internal Medicine
DX: K29.70 Gastritis, unspecified, without bleeding (principal); E03.9 Hypothyroidism, unspecified; E11.9 Type 2 diabetes mellitus without complications; Z79.4 Long term (current) use of insulin; Z79.82 Long term (current) use of aspirin; Z79.890 Hormone replacement therapy; Z79.899 Other long term (current) drug therapy; Z80.0 Family history of malignant neoplasm of digestive organs; Z80.6 Family history of leukemia; Z80.42 Family history of malignant neoplasm of prostate; E78.5 Hyperlipidemia, unspecified; G47.33 Obstructive sleep apnea (adult) (pediatric); G89.29 Other chronic pain; I10 Essential (primary) hypertension; K21.9 Gastro-esophageal reflux disease without esophagitis; Z85.3 Personal history of malignant neoplasm of breast; Z90.12 Acquired absence of left breast and nipple; Z90.710 Acquired absence of both cervix and uterus; Z98.82 Breast implant status; Z99.89 Dependence on other enabling machines and devices; Z88.1 Allergy status to other antibiotic agents; Z88.5 Allergy status to narcotic agent; Z88.2 Allergy status to sulfonamides; Z97.8 Presence of other specified devices; Z87.01 Personal history of pneumonia (recurrent); M54.9 Dorsalgia, unspecified
CPT/HCPCS: 36415; 74018; 80053; 81001; 81003; 82150; 83036; 83690; 85025; 96361; 96374; 96375; 99285

== ENCOUNTER 2018-10-27 18:49 | Observation (INO) | payer MEDICARE, OTHER ==
[2018-10-27] MEDS ORDERED: MORPHINE SULFATE 4 MG/ML SYRINGE IV STA (20:30)
--- NOTE | 2018-10-27 20:57 | CT ---
EXAMINATION TYPE: CT brain fidencio borges con DATE OF EXAM: 10/27/2018 COMPARISON: CT brain 08/21/2018 HISTORY: fall Headache. Neck pain. CT DLP: 1283.6 mGycm Automated exposure control for dose reduction was used. TECHNIQUE: CT scan of the head and cervical spine are performed without contrast. FINDINGS: Ventricles of normal size. There is no mass effect nor midline shift. There is no sign of intracranial hemorrhage. Calvarium is intact. The cervical vertebra have normal alignment. There is a plate with screws fusing anteriorly the cervi lizbeth spine from C4 to C6. The posterior elements are intact. The skull base is intact. IMPRESSION: Negative CT scan of the brain. No change. Spondylotic changes in the cervical spine. No fracture seen.
[2018-10-27] MEDS ORDERED: MORPHINE SULFATE 4 MG/ML SYRINGE IM STA ×2 (21:07→22:18)
[2018-10-27] MEDS ORDERED: MORPHINE SULFATE 2 MG/ML SYRINGE IM STA (21:10)
[2018-10-27] MEDS ORDERED: ONDANSETRON ODT 4 MG TAB PO STA (21:37)
--- NOTE | 2018-10-27 22:00 | XR ---
EXAMINATION TYPE: XR lumbar spine 2 or 3V DATE OF EXAM: 10/27/2018 COMPARISON: 11/01/2017 HISTORY: Right-sided pain TECHNIQUE: 3 views FINDINGS: There is previous posterior fusion surgery at L5-S1. There is a pin and screws fixing L3 an d L4 on the right side. I see no compression fracture. Sacroiliac joints appear intact. IMPRESSION: Previous surgery. No fracture seen. No change.
--- NOTE | 2018-10-27 22:01 | XR ---
EXAMINATION TYPE: XR thoracic spine complete DATE OF EXAM: 10/27/2018 COMPARISON: NONE HISTORY: Pain TECHNIQUE: 3 views FINDINGS: Thoracic vertebra have fairly normal spacing and alignment. Posterior elements are intact. There is no paraspinal mass. IMPRESSION: Negative thoracic spine exam.
--- NOTE | 2018-10-27 22:03 | XR ---
EXAMINATION TYPE: XR ribs RT DATE OF EXAM: 10/27/2018 COMPARISON: NONE HISTORY: Rib pain TECHNIQUE: 4 views FINDINGS: I see no pleural effusion or pneumothorax. Right lung is clear of infiltrate. I see no rib fracture. IMPRESSION: Negative right rib exam. No fracture seen.
--- NOTE | 2018-10-27 22:39 | ED ---
General Adult HPI - General Source: patient, RN notes reviewed, old records reviewed Mode of arrival: wheelchair Limitations: no limitations <Regan Blood - Last Filed: 10/28/18 12:32> <Eden Durham - Last Filed: 11/03/18 22:50> - General Chief complaint: Fall Stated complaint: fall Time Seen by Provider: 10/27/18 20:18 - History of Present Illness Initial comments: 68-year-old female patient with past medical history of chronic lumbar back pain, hypertension, diabetes, and STEMI, COPD presents to ED after having fallen 2 consecutive days. Patient reports that they were of similar nature. Yesterday patient reports that she was walking her walker, Bentyl approximately up, fell forward. Yesterday patient reports that she did hit her head, denies any loss of consciousness. Patient points that she then landed on her right side. Patient was again similar fall today and she bent over, and then fell over while using her walker,. Reports that she did not hit her head today, rather landed on her right side again. Patient reports that she has primary complaint of right-sided rib pain. Patient does have chronic back pain and otherwise has baseline pain in her thoracic and lumbar spine. Patient also complains of some mild pain in her thoracic and lumbar spine, patient reports is not significantly worsening pain that she normally trances. Pt denies chest pain, sob, abdominal pain. Systemic: Pt denies fatigue, fever/chills, rash. Pt denies weakness, night sweats, weight loss. Neuro: Pt denies headache, visual disturbances, syncope or pre-syncope. HEENT: Pt denies ocular discharge or irritation, otalgia, rhinorrhea, pharyngitis or notable lymphadenopathy. Cardiopulmonary: Pt denies chest pain, SOB, heart palpitations, dyspnea on exertion. Abdominal/GI: Pt denies abdominal pain, n/v/d. : Pt denies dysuria, burning w/ urination, frequency/urgency. Denies new onset urinary or bowel incontinence. MSK: Pt denies loss of strength or function in extremities. Neuro: Pt denies new onset weakness, paresthesias. (Regan Blood) - Related Data Home Medications Medication Instructions Recorded Confirmed Aspirin EC [Ecotrin Low Dose] 81 mg PO DAILY 04/22/16 11/01/18 Methocarbamol [Robaxin] 500 mg PO BID PRN 04/22/16 11/01/18 traMADol HCL [Ultram] 50 mg PO DAILY PRN 04/22/16 11/01/18 Rosuvastatin Calcium [Crestor] 40 mg PO DAILY 06/02/16 11/01/18 Levothyroxine Sodium [Synthroid] 75 mcg PO DAILY 11/01/17 11/01/18 Celecoxib [CeleBREX] 200 mg PO DAILY 06/21/18 11/01/18 DULoxetine HCL [Cymbalta] 60 mg PO DAILY 06/21/18 11/01/18 Mirabegron [Myrbetriq] 50 mg PO DAILY 06/21/18 11/01/18 Montelukast [Singulair] 10 mg PO DAILY 06/21/18 11/01/18 Valsartan [Diovan] 40 mg PO DAILY 06/21/18 11/01/18 Nocdurna 27.7 mcg SUBLINGUAL HS 08/20/18 11/01/18 Ibuprofen [Motrin Ib] 200 mg PO Q6H PRN 09/15/18 11/01/18 Morphine Pain Pump 1 dose INTRATHECA CONTINUOUS 10/27/18 11/01/18 Previous Rx's Medication Instructions Recorded Sennosides-Docusate Sodium 2 tab PO BID #120 tablet 10/29/18 [Senokot-S] Insulin Glargine,Hum.rec.anlog 30 unit SQ DAILY #0 11/01/18 [Lantus Solostar] Pantoprazole [Protonix] 40 mg PO BID 30 Days #60 tablet. 11/01/18 INSULIN ASPART (NovoLOG) [NovoLOG 0 unit SQ ACHS vial 11/03/18 (formulary)] Allergies Allergy/AdvReac Type Severity Reaction Status Date / Time neomycin Allergy Itching Verified 11/01/18 17:59 Sulfa (Sulfonamide Allergy Dyspnea Verified 11/01/18 17:59 Antibiotics) sulfamethoxazole Allergy Dyspnea Verified 11/01/18 17:59 [From ] trimethoprim [From ] Allergy Dyspnea Verified 11/01/18 17:59 codeine AdvReac headache Verified 11/01/18 17:59 morphine AdvReac Itching Verified 11/01/18 17:59 Review of Systems ROS Other: All systems not noted in ROS Statement are negative. <Barkach,Regan J - Last Filed: 10/28/18 12:32> ROS Other: All systems not noted in ROS Statement are negative. <HerminioEden P - Last Filed: 11/03/18 22:50> ROS Statement: Those systems with pertinent positive or pertinent negative responses have been documented in the HPI. Past Medical History Past Medical History: Cancer, Diabetes Mellitus, GERD/Reflux, Hyperlipidemia, Hypertension, Pneumonia, Sleep Apnea/CPAP/BIPAP Additional Past Medical History / Comment(s): Pt recently admitted 08/22/18 with pneumonia/sepsis possible aspiration pne, N/V, UTI, hyperkalemia and constipation. Other Hx: IDDM type II, chronic low back pain radiates to L leg/has pain pump, herniated discs, colitis, black stools, L breast cancer with mastectomy, irregular heart beat once, JANENE with Cpap, dysphagia, hypothyroid, constipation. History of Any Multi-Drug Resistant Organisms: MRSA Date of last positivie culture/infection: 04/02/17 MDRO Source:: URINE Past Surgical History: Back Surgery, Breast Surgery, Cholecystectomy, Hysterectomy Additional Past Surgical History / Comment(s): Lt Mastectomy W/ RECONSTRUCTION; RT BREAST IMPLANT. SINUS SURG X3., colonoscopy, pain pump implant Past Anesthesia/Blood Transfusion Reactions: Previous Problems w/ Anesthesia Additional Past Anesthesia/Blood Transfusion Reaction / Comment(s): HX OF DAMAGE TO VOCAL CORDS POST-OP BACK SURGERY Past Psychological History: No Psychological Hx Reported Smoking Status: Never smoker Past Alcohol Use History: None Reported Past Drug Use History: None Reported - Past Family History Father Sister(s) Family Medical History: Cancer Additional Family Medical History / Comment(s): Father had leukemia and sister had pancreatic cancer. Brother(s) Family Medical History: Cancer Additional Family Medical History / Comment(s): Prostate cancer, ANEURYSM Mother Family Medical History: No Reported History Additional Family Medical History / Comment(s): Mother was healthy. <Regan Blood - Last Filed: 10/28/18 12:32> General Exam Limitations: no limitations <Regan Blood - Last Filed: 10/28/18 12:32> - General Exam Comments Initial Comments: Constitutional: NAD, AOX3, Pt has pleasant affect. HEENT: NC/AT, trachea midline, neck supple, no lymphadenopathy. Posterior pharynx non erythematous, without exudates. External ears appear normal, without discharge. Mucous membranes moist. Eyes PERRLA, EOM intact. There is no scleral icterus. No pallor noted. Cardiopulmonary: RRR, no murmurs, rubs or gallops, no JVD noted. Lungs CTAB in anterior and posterior rosario. No peripheral edema. Abdominal exam: Abdomen soft and non-distended. Abdomen non-tender to palpation in all 4 quadrants. Bowel sounds active in LLQ. No hepatosplenomegaly. No ecchymosis Neuro: CN II-XII intact. No nuchal rigidity. MSK: Right ribs mildly tender to palpation. No ecchymoses. No other areas of tenderness. No posterior calf tenderness bilaterally, homans sign negative bilaterally. Posterior tibialis and radial pulse +2 bilaterally. Sensation intact in upper and lower extremities. Full active ROM in upper and lower extremities, 5/5 stregnth. (Regan Blood) Course Vital Signs 10/27/18 10/27/18 10/27/18 19:39 22:43 23:45 Temperature 99.1 F Pulse Rate 98 96 95 Respiratory 18 16 16 Rate Blood Pressure 106/65 100/57 111/66 O2 Sat by Pulse 97 98 90 L Oximetry 10/28/18 10/28/18 10/28/18 00:42 00:49 01:21 Temperature Pulse Rate 90 94 91 Respiratory 18 Rate Blood Pressure 106/62 O2 Sat by Pulse 92 L Oximetry Medical Decision Making - Lab Data Result diagrams: 10/28/18 01:50 10/28/18 01:50 <Regan Blood - Last Filed: 10/28/18 12:32> - Lab Data Result diagrams: 11/01/18 07:08 11/01/18 07:08 <Eden Durham - Last Filed: 11/03/18 22:50> - Medical Decision Making 68-year-old female patient with past medical history of chronic lumbar back pain, hypertension, diabetes, and STEMI, COPD presents to ED after having fallen 2 consecutive days. Patient reports that they were of similar nature. Yesterday patient reports that she was walking her walker, Bentyl approximately up, fell forward. Yesterday patient reports that she did hit her head, denies any loss of consciousness. Patient points that she then landed on her right side. Patient was again similar fall today and she bent over, and then fell over while using her walker,. Reports that she did not hit her head today, rather landed on her right side again. Patient reports that she has primary complaint of right-sided rib pain. Patient does have chronic back pain and otherwise has baseline pain in her thoracic and lumbar spine. Patient also complains of some mild pain in her thoracic and lumbar spine, patient reports is not significantly worsening pain that she normally trances. Pt denies chest pain, sob, abdominal pain. Patient vital signs stable, afebrile. Physical exam displayed: Right ribs mildly tender to palpation. No ecchymoses. No other areas of tenderness. Imaging modalities displayed negative plain films of thoracic spine, lumbar spine, right ribs, chest x-ray. CT of brain and cervical spine is negative. Patient pain well-controlled with total 4 mg IM morphine. Lidoderm patch applied to patient's right ribs. Patient experienced some mild desaturation likely secondary to inspiration from rib pain. Patient denies any chest pain or shortness of breath. Patient does have a history of COPD. Patient received breathing treatment, basic laboratory investigations were ordered and are pending. Patient to be admitted into observation unit for pain control and continued evaluation. Case discussed with Dr. Durham. (Regan Blood) I was available for consultation in the emergency department. The history and physical exam were done by the midlevel provider. I was consulted for this patient's care. I reviewed the case with the midlevel provider and based on their presentation of the patient, I agree with the assessment, medical decision making and plan of care as documented. (Eden Durham) Disposition Is patient prescribed a controlled substance at d/c from ED?: No <Regan Blood - Last Filed: 10/28/18 12:32> <Eden Durham - Last Filed: 11/03/18 22:50> Clinical Impression: Fall Disposition: ADMITTED IP TO THIS HOSP Condition: Stable
[2018-10-27] MEDS ORDERED: LIDOCAINE 5% PATCH TOPICAL STA (22:56)
--- NOTE | 2018-10-27 23:27 | XR ---
EXAM: XR Chest, 2 Views CLINICAL HISTORY: Pain TECHNIQUE: Frontal and lateral views of the chest. COMPARISON: 09/04/2017 FINDINGS: Lungs: Mild right basilar atelectasis or scar. No consolidation. Pleural space: Unremarkable. No pneumothorax. Heart: Unremarkable. No cardiomegaly. Mediastinum: Unremarkable. Bones/joints: No acute osseous abnormality. IMPRESSION: No acute cardiopulmonary process.
[2018-10-28] MEDS ORDERED: IPRATROPIUM-ALBUTEROL 3 ML NEB INHALATION STA (00:06)
[2018-10-28] MEDS ORDERED: SODIUM CHLORIDE 0.9% 500 ML 500 ML IV STA (00:06)
[2018-10-28 02:00] LABS: Basophils % (A) 0 %; Eosinophils # (A) 0.2 k/uL (0-0.7); Eosinophils % (A) 3 %; HCT 43.7 % (34.0-46.0); HGB 13.6 gm/dL (11.4-16.0); Lymphocytes # (A) 2.4 k/uL (1.0-4.8); Lymphocytes % (A) 28 %; MCH 26.2 pg (25.0-35.0); MCV 84.5 fL (80.0-100.0); Mean Platelet Volume 7.3; Monocytes # (A) 0.7 k/uL (0-1.0); Monocytes % (A) 8 %; Neutrophils # (A) 5.2 k/uL (1.3-7.7); Neutrophils % (A) 60 %; Platelet Count 339 k/uL (150-450); RBC 5.18 m/uL (3.80-5.40); RDW 15.1 % (11.5-15.5); WBC 8.7 k/uL (3.8-10.6)
[2018-10-28 02:08] LABS: ALT 14 U/L (9-52); AST 19 U/L (14-36); Albumin 3.5 g/dL (3.5-5.0); Alkaline Phosphatase 70 U/L (38-126); Anion Gap 9 mmol/L; Blood Urea Nitrogen 10 mg/dL (7-17); Calcium 9.7 mg/dL (8.4-10.2); Carbon Dioxide 30 mmol/L (22-30); Chloride 101 mmol/L (98-107); Glucose 79 mg/dL (74-99); Potassium 3.7 mmol/L (3.5-5.1); Sodium 140 mmol/L (137-145); Total Bilirubin 0.9 mg/dL (0.2-1.3); Total Protein 7.4 g/dL (6.3-8.2)
[2018-10-28] MEDS ORDERED: IBUPROFEN 200 MG TAB PO PRN (08:43)
[2018-10-28] MEDS ORDERED: NON-FORMULARY DRUG (Liraglutide [Victoza 3-Pak] 1.8 MG) SQ SCH (09:00)
[2018-10-28] MEDS ORDERED: INSULIN DETEMIR (LEVEMIR) 100 UNIT/ML SYR SQ SCH (09:00)
[2018-10-28] MEDS ORDERED: metFORMIN 500 MG TAB PO SCH (09:00)
[2018-10-28] MEDS ORDERED: NON-FORMULARY DRUG (Canagliflozin [Invokana] 100 MG) PO SCH (09:00)
[2018-10-28] MEDS ORDERED: PANTOPRAZOLE 40 MG TABLET PO SCH (09:30)
[2018-10-28] MEDS ORDERED: ONDANSETRON 4 MG/2 ML VIAL IVP PRN (10:03)
[2018-10-28] MEDS: NON-FORMULARY DRUG (Morphine Pain Pump 1 DOSE) INTRATHECA SCH (10:11)
[2018-10-28] MEDS: ATORVASTATIN 80 MG TAB PO SCH (10:19)
[2018-10-28] MEDS: MELOXICAM 7.5 MG TAB PO SCH (10:19)
[2018-10-28] MEDS: MONTELUKAST 10 MG TAB PO SCH (10:19)
[2018-10-28] MEDS: traMADol 50 MG TAB PO PRN (10:19)
[2018-10-28] MEDS: VALSARTAN 40 MG TAB PO SCH (10:20)
[2018-10-28] MEDS: DULoxetine HCL 60 MG CAPSULE.DR PO SCH (10:20)
[2018-10-28] MEDS: ASPIRIN 81 MG PO SCH (10:20)
[2018-10-28 10:23] LABS: Amylase 33 U/L (30-110); Lipase 58 U/L (23-300)
--- NOTE | 2018-10-28 11:23 | P.HPIM ---
History of Present Illness H&P Date: 10/28/18 This is a 68-year-old female patient of Dr. Rose. Patient presented to the hospital with complaints of falls and nausea and vomiting. Patient reports that she is in a row she tripped over her walker and fell. Patient denies any syncopal like episode or loss of consciousness. Patient has a past medical history of pain pump in which she follows with Dr. borja, breast cancer with left cystectomy, diabetes mellitus type 2, GERD, hyperlipidemia, hypertension, sleep apnea and cholecystectomy. Head and cervical neck CT completed showing negative computed tomography scan of the brain no change. Spondylitic changes in the cervical spine. No fracture seen. Rib x-ray completed showing negative rib exam no fracture. Lumbar x-ray completed showing no fracture. Thoracic spine xray completed showing negative thoracic spine exam. Chest x-ray completed showing no acute cardiopulmonary process. Patient recently admitted on 10/02/2018 for nausea and vomiting. At that time KUB x-ray completed showing nonacute abdomen. Patient was also evaluated by GI services. EGD was performed on 09/20/2018 showing moderate gastritis with superficial erosions in the antrum and body, biopsy mild gastritis cardia. Patient was discharged on Protonix twice daily. GI services have been consulted. Patient denies chest pain or shortness of breath. Patient is still having nausea with vomiting. Patient denies any urinary burning or frequency Review of Systems please refer to HPI otherwise unremarkable Past Medical History Past Medical History: Cancer, Diabetes Mellitus, GERD/Reflux, Hyperlipidemia, Hypertension, Pneumonia, Sleep Apnea/CPAP/BIPAP Additional Past Medical History / Comment(s): Pt recently admitted 08/22/18 with pneumonia/sepsis possible aspiration pne, N/V, UTI, hyperkalemia and cons tipation. Other Hx: IDDM type II, chronic low back pain radiates to L leg/has pain pump, herniated discs, colitis, black stools, L breast cancer with mastectomy, irregular heart beat once, JANENE with Cpap, dysphagia, hypothyroid, constipation. History of Any Multi-Drug Resistant Organisms: MRSA Date of last positivie culture/infection: 04/02/17 MDRO Source:: URINE Past Surgical History: Back Surgery, Breast Surgery, Cholecystectomy, Hysterectomy Additional Past Surgical History / Comment(s): Lt Mastectomy W/ RECONSTRUCTION; RT BREAST IMPLANT. SINUS SURG X3., colonoscopy, pain pump implant Past Anesthesia/Blood Transfusion Reactions: Previous Problems w/ Anesthesia Additional Past Anesthesia/Blood Transfusion Reaction / Comment(s): HX OF DAMAGE TO VOCAL CORDS POST-OP BACK SURGERY Past Psychological History: No Psychological Hx Reported Additional Psychological History / Comment(s): Pt resides with her spouse. She uses a cane or walker to ambulate. She has a pain pump d/t back pain. She has a glucometer. She recently established with [facility]. Smoking Status: Never smoker Past Alcohol Use History: None Reported Past Drug Use History: None Reported - Past Family History Father Sister(s) Family Medical History: Cancer Additional Family Medical History / Comment(s): Father had leukemia and sister had pancreatic cancer. Brother(s) Family Medical History: Cancer Additional Family Medical History / Comment(s): Prostate cancer, ANEURYSM Mother Family Medical History: No Reported History Additional Family Medical History / Comment(s): Mother was healthy. Medications and Allergies Home Medications Medication Instructions Recorded Confirmed Type Aspirin EC [Ecotrin Low Dose] 81 mg PO DAILY 04/22/16 10/27/18 History Methocarbamol [Robaxin] 500 mg PO BID PRN 04/22/16 10/27/18 History traMADol HCL [Ultram] 50 mg PO DAILY PRN 04/22/16 10/27/18 History Rosuvastatin Calcium [Crestor] 40 mg PO DAILY 06/02/16 10/27/18 History Levothyroxine Sodium [Synthroid] 75 mcg PO DAILY 11/01/17 10/27/18 History Celecoxib [CeleBREX] 200 mg PO DAILY 06/21/18 10/27/18 History DULoxetine HCL [Cymbalta] 60 mg PO DAILY 06/21/18 10/27/18 History Mirabegron [Myrbetriq] 50 mg PO DAILY 06/21/18 10/27/18 History Montelukast [Singulair] 10 mg PO DAILY 06/21/18 10/27/18 History Valsartan [Diovan] 40 mg PO DAILY 06/21/18 10/27/18 History Nocdurna 27.7 mcg SUBLINGUAL HS 08/20/18 10/27/18 History metFORMIN HCL 1,000 mg PO BID 08/20/18 10/27/18 History Ibuprofen [Motrin Ib] 200 mg PO Q6H PRN 09/15/18 10/27/18 History Canagliflozin [Invokana] 100 mg PO DAILY 10/27/18 10/27/18 History Esomeprazole Magnesium [NexIUM] 80 mg PO DAILY 10/27/18 10/27/18 History Insulin Glargine,Hum.rec.anlog 50 unit SQ DAILY 10/27/18 10/27/18 History [Lantus Solostar] Liraglutide [Victoza 3-Dread] 1.8 mg SQ DAILY 10/27/18 10/27/18 History Morphine Pain Pump 1 dose INTRATHECA CONTINUOUS 10/27/18 10/27/18 History Allergies Allergy/AdvReac Type Severity Reaction Status Date / Time neomycin Allergy Itching Verified 10/27/18 21:07 Sulfa (Sulfonamide Allergy Dyspnea Verified 10/27/18 21:07 Antibiotics) sulfamethoxazole Allergy Dyspnea Verified 10/27/18 21:07 [From ] trimethoprim [From ] Allergy Dyspnea Verified 10/27/18 21:07 codeine AdvReac headache Verified 10/27/18 21:07 morphine AdvReac Itching Verified 10/27/18 21:07 Physical Exam Vitals: Vital Signs Temp Pulse Pulse Resp BP BP Pulse Ox 10/28/18 07:00 97.7 F 84 16 99/56 95 10/28/18 03:10 97.8 F 96 22 110/70 94 L 10/28/18 01:21 91 18 106/62 92 L 10/28/18 00:49 94 10/28/18 00:42 90 10/27/18 23:45 95 16 111/66 90 L 10/27/18 22:43 96 16 100/57 98 10/27/18 19:39 99.1 F 98 18 106/65 97 Intake and Output 10/27/18 10/28/18 10/28/18 22:59 06:59 14:59 Intake Total 100 Balance 100 Intake: Oral 100 Other: Voiding Method Diaper Incontinent # Voids 2 # Emeses 1 Weight 79.832 kg Head normocephalic Neck supple Lungs clear to auscultation bilaterally no wheezing or crackles Heart regular rate and rhythm S1-S2, no rub or gallop Abdomen is soft nontender nondistended positive bowel sounds no hepatosplenomegaly Extremities no edema Neuro alert and orientated to 3 Results CBC & Chem 7: 10/28/18 01:50 10/28/18 01:50 Thrombosis Risk Factor Assmnt - Choose All That Apply Any of the Below Risk Factors Present?: Yes Each Factor Represents 1 point: Medical pt on bed rest, Obesity (BMI >25), Swollen legs (current) Other Risk Factors: Yes Each Risk Factor Represents 2 Points: Age 61-74 years Thrombosis Risk Factor Assessment Total Risk Factor Score: 5 Thrombosis Risk Factor Assessment Level: High Risk Assessment and Plan Assessment: 1. Falls. Patient reports that she tripped over walker 2 days in a row. Patient denies loss of consciousness. Head CT completed showing negative computed tomography scan of the brain no change. Spondylitic changes in cervical spine. No fracture seen. X-ray completed showing negative right rib exam no fracture seen. X-ray of lumbar spine completed showing previous surgery. No fracture seen. X-ray of thoracic spine completed showing negative thoracic spine exam. 2. Mild desaturation. This occurred in emergency room post pain medication. X-ray was completed showing no acute cardiopulmonary process. Patient currently 95% on room air clear to auscultation 3. Nausea and vomiting. Patient says been intermittently occurring for months. Patient was recently admitted and evaluated by GI services. EGD was performed in September showing moderate gastritis with superficial erosions in the antrum and body, biopsy is and mild gastritis cardia, biopsied. Amylase and lipase within normal limits. Patient was discharged on Protonix. She started on normal saline at 75. GI consult placed 4. Chronic pain. Patient does have pain pump in which she follows with Dr. Wheeler. Patient reports that she saw him last week and adjustments to pain me dication was done. 5. Diabetes mellitus type 2. She had episode of hypoglycemia during last visit . Home medications of vicotza and invokna DC'd. At that time Lantus was also decreased to 30. We'll hold Lantus at this time and place patient on sliding scale coverage 6. History of cholecystectomy 7. Hypothyroidism. Synthroid resumed 8. History of essential hypertension 9. History of sleep apnea 10. History of GERD DVT prophylaxis Lovenox. GI prophylaxis Protonix Time with Patient: Greater than 30 (Greater than 60% of the total time spent in counseling and coordination of care. I performed an examination of the patient and discussed their management with the Nurse Practitioner. I have reviewed the Nurse Practitioner's notes and agree with the documented findings and plan of care)
[2018-10-28 11:47] LABS: Glucose,Whole Blood 85 mg/dL (75-99)
--- NOTE | 2018-10-28 12:07 | P.CONS ---
History of Present Illness - Reason for Consult Consult date: 10/28/18 nausea vomiting Requesting physician: Lexie Craven - Chief Complaint Fall - History of Present Illness 68-year-old female with a past medical history of breast cancer, JANENE, h ypertension, GERD, chronic constipation, opioid usage pain pump, chronic pain syndrome, diabetes mellitus admitted with falls nausea vomiting. He describes multiple episodes of nausea vomiting on a daily basis for at least 2 months. Patient was seen by our GI service one month ago in regards to intractable nausea vomiting epigastric discomfort. She underwent EGD evaluation with Dr. Snow with findings of moderate gastritis superficial erosions in the antrum and body. No evidence of gastroparesis. Patient's home medications include Nexium. Denies NSAID or aspirin usage. No alcohol. Reports constipation last BM 4 days ago. Denies hematemesis hematochezia melena. Afebrile. Head cervical neck CT no change. No cervical fractures. No rib fractures. No spinal fractures. Chest x-ray no acute cardiopulmonary process. KUB one month ago reported no evidence of bowel obstruction. White count 8.7. Hemoglobin 13.6. Electrolytes LFTs lipase amylase within normal limits. Review of Systems Constitutional: Denies fever, chills, sweats, weight gain, or loss. HEENT: Negative for migraines, blurred vision or loss, earaches, drainage, tinnitus, oral mucosal lesions, dysphagia, or odynophagia. CARDIAC: Negative for chest pain, arrhythmias, or palpitation. RESPIRATORY: Negative for shortness of breath, hemoptysis, cough, or sputum production. GI: See HPI for pertinent findings. : Negative for hematuria, urgency, frequency, polyuria, or dysuria. GYNc: Negative vaginal discharge. MUSCULOSKELETAL: Chronic pain syndrome. NEUROLOGIC: Negative for stroke or TIA. ENDOCRINE: Negative for thyroid problems. SKIN: Negative for rash or itching. PSYCHIATRIC: Negative history for depression and anxiety Past Medical History Past Medical History: Cancer, Diabetes Mellitus, GERD/Reflux, Hyperlipidemia, Hypertension, Pneumonia, Sleep Apnea/CPAP/BIPAP Additional Past Medical History / Comment(s): Pt recently admitted 08/22/18 with pneumonia/sepsis possible aspiration pne, N/V, UTI, hyperkalemia and constipation. Other Hx: IDDM type II, chronic low back pain radiates to L leg/has pain pump, herniated discs, colitis, black stools, L breast cancer with mastectomy, irregular heart beat once, JANENE with Cpap, dysphagia, hypothyroid, constipation. History of Any Multi-Drug Resistant Organisms: MRSA Year Discovered:: 04/02/17 MDRO Source:: URINE Past Surgical History: Back Surgery, Breast Surgery, Cholecystectomy, Hysterectomy Additional Past Surgical History / Comment(s): Lt Mastectomy W/ RECONSTRUCTION; RT BREAST IMPLANT. SINUS SURG X3., colonoscopy, pain pump implant Past Anesthesia/Blood Transfusion Reactions: Previous Problems w/ Anesthesia Additional Past Anesthesia/Blood Transfusion Reaction / Comm: HX OF DAMAGE TO VOCAL CORDS POST-OP BACK SURGERY Past Psychological History: No Psychological Hx Reported Additional Psychological History / Comment(s): Pt resides with her spouse. She uses a cane or walker to ambulate. She has a pain pump d/t back pain. She has a glucometer. She recently established with [facility]. Smoking Status: Never smoker Past Alcohol Use History: None Reported Past Drug Use History: None Reported - Past Family History Father Sister(s) Family Medical History: Cancer Additional Family Medical History / Comment(s): Father had leukemia and sister had pancreatic cancer. Brother(s) Family Medical History: Cancer Additional Family Medical History / Comment(s): Prostate cancer, ANEURYSM Mother Family Medical History: No Reported History Additional Family Medical History / Comment(s): Mother was healthy. Medications and Allergies Home Medications Medication Instructions Recorded Confirmed Type Aspirin EC [Ecotrin Low Dose] 81 mg PO DAILY 04/22/16 10/27/18 History Methocarbamol [Robaxin] 500 mg PO BID PRN 04/22/16 10/27/18 History traMADol HCL [Ultram] 50 mg PO DAILY PRN 04/22/16 10/27/18 History Rosuvastatin Calcium [Crestor] 40 mg PO DAILY 06/02/16 10/27/18 History Levothyroxine Sodium [Synthroid] 75 mcg PO DAILY 11/01/17 10/27/18 History Celecoxib [CeleBREX] 200 mg PO DAILY 06/21/18 10/27/18 History DULoxetine HCL [Cymbalta] 60 mg PO DAILY 06/21/18 10/27/18 History Mirabegron [Myrbetriq] 50 mg PO DAILY 06/21/18 10/27/18 History Montelukast [Singulair] 10 mg PO DAILY 06/21/18 10/27/18 History Valsartan [Diovan] 40 mg PO DAILY 06/21/18 10/27/18 History Nocdurna 27.7 mcg SUBLINGUAL HS 08/20/18 10/27/18 History metFORMIN HCL 1,000 mg PO BID 08/20/18 10/27/18 History Ibuprofen [Motrin Ib] 200 mg PO Q6H PRN 09/15/18 10/27/18 History Canagliflozin [Invokana] 100 mg PO DAILY 10/27/18 10/27/18 History Esomeprazole Magnesium [NexIUM] 80 mg PO DAILY 10/27/18 10/27/18 History Insulin Glargine,Hum.rec.anlog 50 unit SQ DAILY 10/27/18 10/27/18 History [Lantus Solostar] Liraglutide [Victoza 3-Dread] 1.8 mg SQ DAILY 10/27/18 10/27/18 History Morphine Pain Pump 1 dose INTRATHECA CONTINUOUS 10/27/18 10/27/18 History Allergies Allergy/AdvReac Type Severity Reaction Status Date / Time neomycin Allergy Itching Verified 10/27/18 21:07 Sulfa (Sulfonamide Allergy Dyspnea Verified 10/27/18 21:07 Antibiotics) sulfamethoxazole Allergy Dyspnea Verified 10/27/18 21:07 [From ] trimethoprim [From ] Allergy Dyspnea Verified 10/27/18 21:07 codeine AdvReac headache Verified 10/27/18 21:07 morphine AdvReac Itching Verified 10/27/18 21:07 Physical Exam Vitals: Vital Signs Temp Pulse Pulse Resp BP BP Pulse Ox 10/28/18 07:00 97.7 F 84 16 99/56 95 10/28/18 03:10 97.8 F 96 22 110/70 94 L 10/28/18 01:21 91 18 106/62 92 L 10/28/18 00:49 94 10/28/18 00:42 90 10/27/18 23:45 95 16 111/66 90 L 10/27/18 22:43 96 16 100/57 98 10/27/18 19:39 99.1 F 98 18 106/65 97 Intake and Output 10/27/18 10/28/18 10/28/18 22:59 06:59 14:59 Intake Total 100 Balance 100 Intake: Oral 100 Other: Voiding Method Diaper Incontinent # Voids 2 # Emeses 1 Weight 79.832 kg General appearance: The patient is alert, oriented, in no acute distress. HET: Head is normocephalic and atraumatic. Pupils are equal and reactive. Oropharynx is clear without lesions. Neck: Supple without lymphadenopathy. Trachea midline. Heart: S1 S2. Regular rate and rhythm. Lungs: No crackles or wheezes are heard. Abdomen: Soft, mild midepigastric tenderness, nondistended with hypoactive bowel sounds. No peritoneal signs. No palpable organomegaly or masses. Extremities: Normal skin color and turgor. No cyanosis, rash, ulceration, clubbing, or edema. Radial and pedal pulses are 2/4 bilaterally. Neurological: No focal deficits. Strength and sensation are grossly intact. Results CBC & Chem 7: 10/28/18 01:50 10/28/18 01:50 Comments: CT had cervical, rib lumbar thoracic chest x-ray report reviewed by Dr. Duarte Assessment and Plan (1) Epigastric pain Narrative/Plan: 68-year-old female admitted status post fall with underlying chronic constipation as well as acute on chronic epigastric pain nausea vomiting without bleeding fever or leukocytosis. EGD 1 month ago reported gastritis superficial gastric erosions. Differentials to consider but not limited include underlying IBS-C exacerbated by opioid therapy possible ileus possible bowel obstruction cannot be excluded. Current Visit: Yes Status: Acute Code(s): R10.13 - EPIGASTRIC PAIN SNOMED Code(s): 19846368 (2) Nausea & vomiting Current Visit: Yes Status: Acute Code(s): R11.2 - NAUSEA WITH VOMITING, UNSPECIFIED SNOMED Code(s): 74524762 (3) Chronic constipation Current Visit: Yes Status: Acute Code(s): K59.09 - OTHER CONSTIPATION SNOMED Code(s): 628369391 (4) Chronic pain syndrome Current Visit: Yes Status: Acute Code(s): G89.4 - CHRONIC PAIN SYNDROME SNOMED Code(s): 643035934 (5) Fall Current Visit: Yes Status: Acute Code(s): W19.XXXA - UNSPECIFIED FALL, INITIAL ENCOUNTER SNOMED Code(s): 7370785 Plan: 1. Three-view abdomen rule out obstruction if negative stool softeners gentle laxatives. GI prophylaxis Protonix 40 twice daily. Light diet as tolerated. We'll follow with you. Inpatient endoscopic exam not planned at this time. Thank you for this kind referral and the opportunity to participate in the care of your patient. This consultation was discussed with Dr. Duarte. The impression and plan of care have been directed as dictated.
[2018-10-28] MEDS: INSULIN ASPART (NovoLOG) 100 UNIT/ML VIAL SQ SCH ×3 (12:39→21:30)
--- NOTE | 2018-10-28 14:06 | XR ---
EXAMINATION TYPE: XR abdomen complete w decub DATE OF EXAM: 10/28/2018 CLINICAL HISTORY: Abdominal pain with nausea and vomiting. TECHNIQUE: Supine, upright, and left side down lateral decubitus views of the abdomen are obtained. COMPARISON: Abdominal x-ray October 01, 2018. FINDINGS: Scattered gas is seen in non-distended small bowel loops. Gas and fecal material is seen in non-distended colon. Cholecystectomy clips are redemonstrated. Surgical change L3-S1 level is agai n seen. There is stimulator device overlying the left upper pelvis redemonstrated. No pneumoperitoneu m or suspicious calcification is identified. Displaced surgical clip left midabdomen laterally is aga in seen. Visualized lung bases remain clear. IMPRESSION: Overall nonobstructive bowel gas pattern. No significant change from prior study.
[2018-10-28] MEDS: NON-FORMULARY DRUG (Mirabegron [Myrbetriq] 50 MG) PO SCH (14:47)
[2018-10-28] MEDS: SENNOSIDES-DOCUSATE SODIUM 1 EACH TAB PO SCH ×2 (14:47→21:52)
[2018-10-28] MEDS: LEVOTHYROXINE 75 MCG TAB PO SCH (14:47)
[2018-10-28] MEDS: METHOCARBAMOL 500 MG TAB PO PRN (17:08)
[2018-10-28 17:09] LABS: Glucose,Whole Blood 81 mg/dL (75-99)
[2018-10-28] MEDS: SODIUM CHLORIDE 0.9% 1,000 ML IV SCH ×2 (17:11→23:57)
[2018-10-28] MEDS: [UNRECOGNIZED DRUG - OTHER] SUBLINGUAL SCH (20:27)
[2018-10-28 21:10] LABS: Glucose,Whole Blood 128 mg/dL (75-99)
[2018-10-28] MEDS: PANTOPRAZOLE 40 MG/10 ML VIAL IVP SCH (21:52)
[2018-10-28] MEDS: BISACODYL 10 MG SUPP RECTAL PRN (21:52)
[2018-10-28] MEDS: LORATADINE 10 MG TAB PO SCH (21:52)
[2018-10-29] MEDS: LEVOTHYROXINE 75 MCG TAB PO SCH (05:30)
[2018-10-29] MEDS: NON-FORMULARY DRUG (Mirabegron [Myrbetriq] 50 MG) PO SCH (07:15)
[2018-10-29] MEDS: NON-FORMULARY DRUG (Morphine Pain Pump 1 DOSE) INTRATHECA SCH (07:15)
[2018-10-29] MEDS: INSULIN ASPART (NovoLOG) 100 UNIT/ML VIAL SQ SCH ×4 (07:16→21:34)
[2018-10-29 07:18] LABS: Glucose,Whole Blood 103 mg/dL (75-99)
[2018-10-29] MEDS: PANTOPRAZOLE 40 MG/10 ML VIAL IVP SCH (07:31)
[2018-10-29] MEDS: ATORVASTATIN 80 MG TAB PO SCH (07:32)
[2018-10-29] MEDS: MONTELUKAST 10 MG TAB PO SCH (07:32)
[2018-10-29] MEDS: ENOXAPARIN 40 MG/0.4 ML SYRINGE SQ SCH (07:32)
[2018-10-29] MEDS: MELOXICAM 7.5 MG TAB PO SCH (07:32)
[2018-10-29] MEDS: SENNOSIDES-DOCUSATE SODIUM 1 EACH TAB PO SCH ×2 (07:32→21:35)
[2018-10-29] MEDS: DULoxetine HCL 60 MG CAPSULE.DR PO SCH (07:32)
[2018-10-29] MEDS: VALSARTAN 40 MG TAB PO SCH (07:33)
[2018-10-29] MEDS: LORATADINE 10 MG TAB PO SCH ×2 (07:33→21:35)
[2018-10-29] MEDS: ASPIRIN 81 MG PO SCH (07:33)
[2018-10-29 08:34] LABS: Basophils % (A) 1 %; Eosinophils # (A) 0.2 k/uL (0-0.7); Eosinophils % (A) 3 %; HGB 11.9 gm/dL (11.4-16.0); Hypochromasia Slight; Lymphocytes # (A) 1.4 k/uL (1.0-4.8); Lymphocytes % (A) 21 %; MCH 27.8 pg (25.0-35.0); MCHC 32.2 g/dL (31.0-37.0); MCV 86.3 fL (80.0-100.0); Mean Platelet Volume 6.5; Monocytes # (A) 0.6 k/uL (0-1.0); Monocytes % (A) 9 %; Neutrophils # (A) 4.2 k/uL (1.3-7.7); Neutrophils % (A) 65 %; Platelet Count 339 k/uL (150-450); RBC 4.29 m/uL (3.80-5.40); WBC 6.5 k/uL (3.8-10.6)
[2018-10-29 08:38] LABS: ALT 23 U/L (9-52); AST 22 U/L (14-36); Albumin 3.1 g/dL (3.5-5.0); Alkaline Phosphatase 62 U/L (38-126); Anion Gap 10 mmol/L; Blood Urea Nitrogen 10 mg/dL (7-17); Calcium 8.8 mg/dL (8.4-10.2); Carbon Dioxide 28 mmol/L (22-30); Chloride 99 mmol/L (98-107); Glucose 108 mg/dL (74-99); Potassium 3.9 mmol/L (3.5-5.1); Sodium 137 mmol/L (137-145); Total Protein 6.6 g/dL (6.3-8.2)
[2018-10-29] MEDS ORDERED: BISACODYL 10 MG SUPP RECTAL STA (09:45)
--- NOTE | 2018-10-29 09:50 | P.PN ---
Subjective Progress Note Date: 10/29/18 Principal diagnosis: Nausea vomiting abdominal pain constipation Improve nausea vomiting. Requesting diet advancement. Passed a bowel movement yesterday with suppository and stool softeners. Abdominal pain improved. Abdominal x-rays no evidence of obstruction. Objective - Vital Signs Vital signs: Vital Signs Temp 97.8 F 10/29/18 07:00 Pulse 74 10/29/18 07:00 Resp 19 10/29/18 07:00 BP 94/60 10/29/18 07:00 Pulse Ox 92 L 10/29/18 07:00 Intake & Output 10/28/18 10/29/18 10/29/18 18:59 06:59 18:59 Intake Total 200 600 Output Total 1 Balance 200 599 Intake: Intake, IV Titration 600 Amount Sodium Chloride 0.9% 1, 600 000 ml @ 75 mls/hr IV . [id number] [facility] Rx#:[id number] Oral 200 Output: Urine/Stool Mix 1 Other: Voiding Method Toilet # Voids 1 2 # Bowel Movements 1 - Exam General appearance: The patient is alert, oriented, in no acute distress. HET: Head is normocephalic and atraumatic. Pupils are equal and reactive. Oropharynx is clear without lesions. Neck: Supple without lymphadenopathy. Trachea midline. Heart: S1 S2. Regular rate and rhythm. Lungs: No crackles or wheezes are heard. Abdomen: Soft, very mild epigastric tenderness, nondistended with bowel sounds. No peritoneal signs. No palpable organomegaly or masses. Extremities: Normal skin color and turgor. No cyanosis, rash, ulceration, clubbing, or edema. Radial and pedal pulses are 2/4 bilaterally. Neurological: No focal deficits. Strength and sensation are grossly intact. - Labs CBC & Chem 7: 10/29/18 07:10 10/29/18 07:10 Labs: Abnormal Lab Results - Last 24 Hours (Table) 10/28/18 10/29/18 10/29/18 Range/Units 21:08 07:10 07:15 Glucose 108 H (74-99) mg/dL POC Glucose (mg/dL) 128 H 103 H (75-99) mg/dL Albumin 3.1 L (3.5-5.0) g/dL Assessment and Plan (1) Epigastric pain Narrative/Plan: 68-year-old female admitted status post fall with underlying chronic constipation as well as acute on chronic epigastric pain nausea vomiting without bleeding fever or leukocytosis. EGD 1 month ago reported gastritis superficial gastric erosions. Differentials to consider but not limited include underlying IBS-C exacerbated by opioid therapy possible ileus from underlying constipation. Current Visit: Yes Status: Acute Code(s): R10.13 - EPIGASTRIC PAIN SNOMED Code(s): 70540365 (2) Nausea & vomiting Current Visit: Yes Status: Acute Code(s): R11.2 - NAUSEA WITH VOMITING, UNSPECIFIED SNOMED Code(s): 62421412 (3) Chronic constipation Current Visit: Yes Status: Acute Code(s): K59.09 - OTHER CONSTIPATION SNOMED Code(s): 436286601 (4) Chronic pain syndrome Current Visit: Yes Status: Acute Code(s): G89.4 - CHRONIC PAIN SYNDROME SNOMED Code(s): 889307568 (5) Fall Current Visit: Yes Status: Acute Code(s): W19.XXXA - UNSPECIFIED FALL, INITIAL ENCOUNTER SNOMED Code(s): 9067366 Plan: 1. Advance to regular diet. Continue stool softeners gentle laxatives. Avoid constipation. GI prophylaxis Protonix 40 twice daily. Return to office next week for reevaluation with Dr. Snow. Discharge per medicine. Assessment and plan a care discussed with Dr. Duarte
[2018-10-29 11:55] LABS: Glucose,Whole Blood 132 mg/dL (75-99)
--- NOTE | 2018-10-29 14:45 | P.PN ---
Subjective Progress Note Date: 10/29/18 This is a 68-year-old female patient of Dr. Rose. Patient presented to the hospital with complaints of falls and nausea and vomiting. Patient reports that she is in a row she tripped over her walker and fell. Patient denies any syncopal like episode or loss of consciousness. Patient has a past medical history of pain pump in which she follows with Dr. borja, breast cancer with left cystectomy, diabetes mellitus type 2, GERD, hyperlipidemia, hypertension, sleep apnea and cholecystectomy. Head and cervical neck CT completed showing negative computed tomography scan of the brain no change. Spondylitic changes in the cervical spine. No fracture seen. Rib x-ray completed showing negative rib exam no fracture. Lumbar x-ray completed showing no fracture. Thoracic spine xray completed showing negative thoracic spine exam. Chest x-ray completed showing no acute cardiopulmonary process. Patient recently admitted on 10/02/2018 for nausea and vomiting. At that time KUB x-ray completed showing nonacute abdomen. Patient was also evaluated by GI services. EGD was performed on 09/20/2018 showing moderate gastritis with superficial erosions in the antrum and body, biopsy mild gastritis cardia. Patient was discharged on Protonix twice daily. GI services have been consulted. Patient denies chest pain or shortness of breath. Patient is still having nausea with vomiting. Patient denies any urinary burning or frequency On 10/29/2018 patient is alert and oriented 3. Discussed case with GI services. Patient's nausea has improved since having bowel movements. Continue stool softeners. At this time patient denies chest pain or shortness of breath. Patient denies nausea vomiting or diarrhea. Patient denies any urinary burning or frequency Objective - Vital Signs Vital signs: Vital Signs Temp 97.8 F 10/29/18 07:00 Pulse 74 10/29/18 07:00 Resp 19 10/29/18 07:00 BP 94/60 10/29/18 07:00 Pulse Ox 92 L 10/29/18 07:00 Intake & Output 10/28/18 10/29/18 10/29/18 18:59 06:59 18:59 Intake Total 200 600 Output Total 1 Balance 200 599 Intake: Intake, IV Titration 600 Amount Sodium Chloride 0.9% 1, 600 000 ml @ 75 mls/hr IV . [id number] [facility] Rx#:[id number] Oral 200 Output: Urine/Stool Mix 1 Other: Voiding Method Toilet # Voids 1 2 # Bowel Movements 1 - Exam Head normocephalic Neck supple Lungs clear to auscultation bilaterally no wheezing or crackles Heart regular rate and rhythm S1-S2, no rub or gallop Abdomen is soft nontender nondistended positive bowel sounds no hepatosplenomegaly Extremities no edema Neuro alert and orientated to 3 - Labs CBC & Chem 7: 10/29/18 07:10 10/29/18 07:10 Labs: Abnormal Lab Results - Last 24 Hours (Table) 10/28/18 10/29/18 10/29/18 Range/Units 21:08 07:10 07:15 Glucose 108 H (74-99) mg/dL POC Glucose (mg/dL) 128 H 103 H (75-99) mg/dL Albumin 3.1 L (3.5-5.0) g/dL 10/29/18 Range/Units 11:46 Glucose (74-99) mg/dL POC Glucose (mg/dL) 132 H (75-99) mg/dL Albumin (3.5-5.0) g/dL Assessment and Plan Assessment: 1. Falls. Patient reports that she tripped over walker 2 days in a row. Patient denies loss of consciousness. Head CT completed showing negative computed tomography scan of the brain no change. Spondylitic changes in cervical spine. No fracture seen. X-ray completed showing negative right rib exam no fracture seen. X-ray of lumbar spine completed showing previous surgery. No fracture seen. X-ray of thoracic spine completed showing negative thoracic spine exam. 2. Mild desaturation. This occurred in emergency room post pain medication. X-ray was completed showing no acute cardiopulmonary process. Patient currently 95% on room air clear to auscultation 3. Nausea and vomiting. Patient says been intermittently occurring for months. Patient was recently admitted and evaluated by GI services. EGD was performed in September showing moderate gastritis with superficial erosions in the antrum and body, biopsy is and mild gastritis cardia, biopsied. Amylase and lipase within normal limits. Patient was discharged on Protonix. She started on normal saline at 75. Abdominal x-ray performed showing overall non-obstructive bowel gas pattern. No significant change from prior study. Per GI services attempted to regular diet continue stool softeners avoid constipation continue Protonix 40 mg twice daily follow-up outpatient with Dr. Snow 4. Chronic pain. Patient does have pain pump in which she follows with Dr. Wheeler. Patient reports that she saw him last week and adjustments to pain medication was done. 5. Diabetes mellitus type 2. episode of hypoglycemia during last visit. Home medications of vicotza and invokna DC'd. At that time Lantus was also decreased to 30. We'll hold Lantus at this time and place patient on sliding scale coverage. 6. History of cholecystectomy 7. Hypothyroidism. Synthroid resumed 8. History of essential hypertension 9. History of sleep apnea 10. History of GERD DVT prophylaxis Lovenox. GI prophylaxis Protonix I performed an examination of the patient and discussed their management with the Nurse Practitioner. I have reviewed the Nurse Practitioner's notes and agree with the documented findings and plan of care
[2018-10-29 17:00] LABS: Glucose,Whole Blood 134 mg/dL (75-99)
[2018-10-29] MEDS: SODIUM CHLORIDE 0.9% 1,000 ML IV SCH (17:23)
[2018-10-29 21:01] LABS: Glucose,Whole Blood 132 mg/dL (75-99)
[2018-10-29] MEDS: PANTOPRAZOLE 40 MG TABLET PO SCH (21:35)
[2018-10-29] MEDS: [UNRECOGNIZED DRUG - OTHER] SUBLINGUAL SCH (21:35)
[2018-10-30] MEDS: SODIUM CHLORIDE 0.9% 1,000 ML IV SCH ×2 (03:05→17:47)
[2018-10-30] MEDS: LEVOTHYROXINE 75 MCG TAB PO SCH (05:59)
[2018-10-30 07:29] LABS: Glucose,Whole Blood 141 mg/dL (75-99)
[2018-10-30] MEDS: INSULIN ASPART (NovoLOG) 100 UNIT/ML VIAL SQ SCH ×4 (07:59→22:23)
[2018-10-30] MEDS: ENOXAPARIN 40 MG/0.4 ML SYRINGE SQ SCH (07:59)
[2018-10-30] MEDS: SENNOSIDES-DOCUSATE SODIUM 1 EACH TAB PO SCH ×2 (08:00→22:08)
[2018-10-30] MEDS: traMADol 50 MG TAB PO PRN (08:00)
[2018-10-30] MEDS: LORATADINE 10 MG TAB PO SCH ×2 (08:00→22:09)
[2018-10-30] MEDS: MONTELUKAST 10 MG TAB PO SCH (08:00)
[2018-10-30] MEDS: MELOXICAM 7.5 MG TAB PO SCH (08:01)
[2018-10-30] MEDS: DULoxetine HCL 60 MG CAPSULE.DR PO SCH (08:01)
[2018-10-30] MEDS: ASPIRIN 81 MG PO SCH (08:01)
[2018-10-30] MEDS: ATORVASTATIN 80 MG TAB PO SCH (08:01)
[2018-10-30] MEDS: PANTOPRAZOLE 40 MG TABLET PO SCH ×2 (08:01→22:09)
[2018-10-30] MEDS: NON-FORMULARY DRUG (Mirabegron [Myrbetriq] 50 MG) PO SCH (08:06)
[2018-10-30] MEDS: NON-FORMULARY DRUG (Morphine Pain Pump 1 DOSE) INTRATHECA SCH (08:06)
[2018-10-30] MEDS: VALSARTAN 40 MG TAB PO SCH (08:08)
[2018-10-30 08:10] LABS: Basophils % (A) 1 %; Eosinophils # (A) 0.2 k/uL (0-0.7); Eosinophils % (A) 4 %; HCT 38.8 % (34.0-46.0); HGB 12.1 gm/dL (11.4-16.0); Hypochromasia Moderate; Lymphocytes # (A) 1.8 k/uL (1.0-4.8); Lymphocytes % (A) 32 %; MCH 27.7 pg (25.0-35.0); MCHC 31.2 g/dL (31.0-37.0); MCV 88.9 fL (80.0-100.0); Mean Platelet Volume 6.4; Monocytes # (A) 0.5 k/uL (0-1.0); Monocytes % (A) 8 %; Neutrophils # (A) 3.1 k/uL (1.3-7.7); Neutrophils % (A) 54 %; Platelet Count 343 k/uL (150-450); RBC 4.37 m/uL (3.80-5.40); RDW 14.9 % (11.5-15.5); WBC 5.7 k/uL (3.8-10.6)
[2018-10-30 08:20] LABS: ALT 24 U/L (9-52); AST 18 U/L (14-36); Albumin 2.9 g/dL (3.5-5.0); Alkaline Phosphatase 74 U/L (38-126); Anion Gap 9 mmol/L; Blood Urea Nitrogen 7 mg/dL (7-17); Calcium 8.8 mg/dL (8.4-10.2); Carbon Dioxide 25 mmol/L (22-30); Chloride 106 mmol/L (98-107); Glucose 146 mg/dL (74-99); Potassium 4.2 mmol/L (3.5-5.1); Sodium 140 mmol/L (137-145); Total Bilirubin 0.5 mg/dL (0.2-1.3); Total Protein 6.1 g/dL (6.3-8.2)
[2018-10-30 11:59] LABS: Glucose,Whole Blood 123 mg/dL (75-99)
[2018-10-30] MEDS: BISACODYL 10 MG SUPP RECTAL PRN (12:04)
[2018-10-30] MEDS: METHOCARBAMOL 500 MG TAB PO PRN (13:12)
[2018-10-30] MEDS ORDERED: NA PHOS,M-B/NA PHOS,DI-BA 133 ML ENEMA RECTAL ONE (15:13)
--- NOTE | 2018-10-30 15:56 | P.PN ---
Subjective Progress Note Date: 10/30/18 This is a 68-year-old female patient of Dr. Rose. Patient presented to the hospital with complaints of falls and nausea and vomiting. Patient reports that she is in a row she tripped over her walker and fell. Patient denies any syncopal like episode or loss of consciousness. Patient has a past medical history of pain pump in which she follows with Dr. borja, breast cancer with left cystectomy, diabetes mellitus type 2, GERD, hyperlipidemia, hypertension, sleep apnea and cholecystectomy. Head and cervical neck CT completed showing negative computed tomography scan of the brain no change. Spondylitic changes in the cervical spine. No fracture seen. Rib x-ray completed showing negative rib exam no fracture. Lumbar x-ray completed showing no fracture. Thoracic spine xray completed showing negative thoracic spine exam. Chest x-ray completed showing no acute cardiopulmonary process. Patient recently admitted on 10/02/2018 for nausea and vomiting. At that time KUB x-ray completed showing nonacute abdomen. Patient was also evaluated by GI services. EGD was performed on 09/20/2018 showing moderate gastritis with superficial erosions in the antrum and body, biopsy mild gastritis cardia. Patient was discharged on Protonix twice daily. GI services have been consulted. Patient denies chest pain or shortness of breath. Patient is still having nausea with vomiting. Patient denies any urinary burning or frequency On 10/29/2018 patient is alert and oriented 3. Discussed case with GI services. Patient's nausea has improved since having bowel movements. Continue stool softeners. At this time patient denies chest pain or shortness of breath. Patient denies nausea vomiting or diarrhea. Patient denies any urinary burning or frequency On 10/30/2018 patient was seen and examined on the medical floor she is alert and oriented 3 in no apparent distress she is complaining of constipation and complaining of pain in the right side of the abdomen otherwise no complaints at this time there is no fever or chills no headache or dizziness no chest pain no shortness of breath no cough no nausea or vomiting and no urinary symptoms Objective - Vital Signs Vital signs: Vital Signs Temp 97.7 F 10/30/18 14:55 Pulse 76 10/30/18 14:55 Resp 18 10/30/18 14:55 BP 111/66 10/30/18 14:55 Pulse Ox 96 10/30/18 14:55 Intake & Output 10/29/18 10/30/18 10/30/18 18:59 06:59 18:59 Intake Total 200 600 Balance 200 600 Intake: Intake, IV Titration 600 Amount Sodium Chloride 0.9% 1, 600 000 ml @ 75 mls/hr IV . [id number] [id number] Rx#:[id number] Other 200 Other: Voiding Method Toilet # Voids 3 1 4 # Bowel Movements 1 - Exam Head normocephalic and atraumatic Neck supple no JVD no goiter Lungs clear to auscultation bilaterally no wheezing or crackles Heart regular rate and rhythm S1-S2, no rub or gallop Abdomen is soft nontender nondistended positive bowel sounds no hepatosplenome bita Extremities no edema no cyanosis or clubbing Neuro alert and orientated to 3 - Labs CBC & Chem 7: 10/30/18 07:37 10/30/18 07:37 Labs: Abnormal Lab Results - Last 24 Hours (Table) 10/29/18 10/29/18 10/30/18 Range/Units 16:58 20:50 07:16 Glucose (74-99) mg/dL POC Glucose (mg/dL) 134 H 132 H 141 H (75-99) mg/dL Total Protein (6.3-8.2) g/dL Albumin (3.5-5.0) g/dL 10/30/18 10/30/18 Range/Units 07:37 11:58 Glucose 146 H (74-99) mg/dL POC Glucose (mg/dL) 123 H (75-99) mg/dL Total Protein 6.1 L (6.3-8.2) g/dL Albumin 2.9 L (3.5-5.0) g/dL Assessment and Plan Plan: 1. Falls. Patient reports that she tripped over walker 2 days in a row. Patient denies loss of consciousness. Head CT completed showing negative computed tomography scan of the brain no change. Spondylitic changes in cervical spine. No fracture seen. X-ray completed showing negative right rib exam no fracture seen. X-ray of lumbar spine completed showing previous surgery. No fracture seen. X-ray of thoracic spine completed showing negative thoracic spine exam. 2. Mild desaturation. This occurred in emergency room post pain medication. X-ray was completed showing no acute cardiopulmonary process. Patient currently 95% on room air clear to auscultation 3. Nausea and vomiting. Patient says been intermittently occurring for months. Patient was recently admitted and evaluated by GI services. EGD was performed in September showing moderate gastritis with superficial erosions in the antrum and body, biopsy is and mild gastritis cardia, biopsied. Amylase and lipase within normal limits. Patient was discharged on Protonix. She started on normal saline at 75. Abdominal x-ray performed showing overall non-obstructive bowel gas pattern. No significant change from prior study. Per GI services attempted to regular diet continue stool softeners avoid constipation continue Protonix 40 mg twice daily follow-up outpatient with Dr. Snow 4. Chronic pain. Patient does have pain pump in which she follows with Dr. Wheeler. Patient reports that she saw him last week and adjustments to pain medication was done. 5. Diabetes mellitus type 2. episode of hypoglycemia during last visit. Home medications of vicotza and invokna DC'd. At that time Lantus was also decreased to 30. We'll hold Lantus at this time and place patient on sliding scale coverage. 6. History of cholecystectomy 7. Hypothyroidism. Synthroid resumed 8. History of essential hypertension 9. History of sleep apnea 10. History of GERD DVT prophylaxis Lovenox. GI prophylaxis Protonix
[2018-10-30 17:16] LABS: Glucose,Whole Blood 161 mg/dL (75-99)
--- NOTE | 2018-10-30 17:35 | PN ---
PROGRESS NOTE DATE OF SERVICE: October 30, 2018 The patient is a 68-year-old pleasant white female admitted to the hospital with nausea, vomiting. Patient states that she tripped over her walker at home and she fell down and hurt her right side of the abdomen. Since then, she has been having severe right-sided abdominal pain associated with some nausea, vomiting. She came into the emergency room and had a cervical head and neck CT that showed no fractures. She had a lumbar x-ray that were unremarkable. Chest x-ray was also normal. This morning, she is feeling much better. She has had some nausea but no emesis. She still has some pain on the right side of the abdomen. The patient had an upper endoscopy done about 3 weeks ago that showed some gastritis. PHYSICAL EXAMINATION: She appears comfortable. No apparent distress. Vital signs stable. Blood pressure is 132/86, pulse 88 per minute and afebrile. HEENT examination unremarkable. Conjunctivae pink. Sclerae anicteric. Oral cavity no lesions. Neck no jugular venous distention or lymph node enlargement. Chest was clear to auscultation. HEART: Regular rate and rhythm. ABDOMEN: Soft. There is mild tenderness along the right side of the abdomen with a small bruise, but no rebound or rigidity. Bowel sounds are positive. No organomegaly. Extremities: No pedal edema. Skin no rashes. NEUROLOGIC: Alert and oriented x3. No focal deficits. LABS: From today, basic metabolic panel is within normal limits. CBC with differential count is within normal limits. IMPRESSION: 1. Nausea and vomiting intermittently for many months duration. Upper endoscopy done in September showed antral erosive gastritis. Presently on PPI and nausea, vomiting is improving. 2. Right-sided abdominal pain, probably related to recent fall. 3. Chronic pain syndrome for which she has a pain pump and follows with Dr. Andrade on an outpatient basis. 4. Longstanding history of diabetes mellitus. RECOMMENDATIONS: 1. Advance diet as tolerated. 2. Continue with antiemetics as well as proton pump inhibitors for now. 3. No need for repeat upper endoscopy. We will follow her closely during her hospital stay. Thank you for this consultation. MMODL / IJN: [id number] /
[2018-10-30 21:04] LABS: Glucose,Whole Blood 119 mg/dL (75-99)
[2018-10-30 21:41] VITALS: RESP 16
[2018-10-30] MEDS: [UNRECOGNIZED DRUG - OTHER] SUBLINGUAL SCH (22:24)
[2018-10-31] MEDS: SODIUM CHLORIDE 0.9% 1,000 ML IV SCH ×2 (05:34→21:18)
[2018-10-31] MEDS: LEVOTHYROXINE 75 MCG TAB PO SCH (05:34)
[2018-10-31 07:10] LABS: Glucose,Whole Blood 128 mg/dL (75-99)
[2018-10-31 07:27] LABS: Basophils % (A) 0 %; Eosinophils # (A) 0.2 k/uL (0-0.7); Eosinophils % (A) 4 %; HGB 10.9 gm/dL (11.4-16.0); Hypochromasia Moderate; Lymphocytes # (A) 1.7 k/uL (1.0-4.8); Lymphocytes % (A) 27 %; MCH 26.5 pg (25.0-35.0); MCHC 30.2 g/dL (31.0-37.0); MCV 87.8 fL (80.0-100.0); Mean Platelet Volume 6.4; Monocytes # (A) 0.4 k/uL (0-1.0); Monocytes % (A) 6 %; Neutrophils # (A) 3.7 k/uL (1.3-7.7); Neutrophils % (A) 61 %; Platelet Count 289 k/uL (150-450); RBC 4.11 m/uL (3.80-5.40); RDW 15.1 % (11.5-15.5); WBC 6.1 k/uL (3.8-10.6)
[2018-10-31] MEDS: NON-FORMULARY DRUG (Morphine Pain Pump 1 DOSE) INTRATHECA SCH (07:30)
[2018-10-31] MEDS: INSULIN ASPART (NovoLOG) 100 UNIT/ML VIAL SQ SCH ×4 (07:30→21:18)
[2018-10-31] MEDS: NON-FORMULARY DRUG (Mirabegron [Myrbetriq] 50 MG) PO SCH (07:31)
[2018-10-31 07:41] LABS: ALT 20 U/L (9-52); AST 16 U/L (14-36); Albumin 2.6 g/dL (3.5-5.0); Alkaline Phosphatase 76 U/L (38-126); Anion Gap 4 mmol/L; Blood Urea Nitrogen 6 mg/dL (7-17); Calcium 8.5 mg/dL (8.4-10.2); Carbon Dioxide 27 mmol/L (22-30); Chloride 110 mmol/L (98-107); Glucose 140 mg/dL (74-99); Potassium 4.6 mmol/L (3.5-5.1); Sodium 141 mmol/L (137-145); Total Bilirubin 0.3 mg/dL (0.2-1.3); Total Protein 5.7 g/dL (6.3-8.2)
[2018-10-31] MEDS ORDERED: NA PHOS,M-B/NA PHOS,DI-BA 133 ML ENEMA RECTAL ONE (07:42)
[2018-10-31] MEDS: ATORVASTATIN 80 MG TAB PO SCH (07:44)
[2018-10-31] MEDS: PANTOPRAZOLE 40 MG TABLET PO SCH ×2 (07:44→21:19)
[2018-10-31] MEDS: MONTELUKAST 10 MG TAB PO SCH (07:44)
[2018-10-31] MEDS: LORATADINE 10 MG TAB PO SCH ×2 (07:44→21:18)
[2018-10-31] MEDS: VALSARTAN 40 MG TAB PO SCH (07:44)
[2018-10-31] MEDS: ASPIRIN 81 MG PO SCH (07:45)
[2018-10-31] MEDS: DULoxetine HCL 60 MG CAPSULE.DR PO SCH (07:45)
[2018-10-31] MEDS: MELOXICAM 7.5 MG TAB PO SCH (07:45)
[2018-10-31] MEDS: traMADol 50 MG TAB PO PRN (07:45)
[2018-10-31] MEDS: SENNOSIDES-DOCUSATE SODIUM 1 EACH TAB PO SCH ×2 (07:46→21:19)
[2018-10-31] MEDS: ENOXAPARIN 40 MG/0.4 ML SYRINGE SQ SCH (07:46)
[2018-10-31] MEDS: METHOCARBAMOL 500 MG TAB PO PRN (09:09)
--- NOTE | 2018-10-31 11:48 | PN ---
PROGRESS NOTE DATE OF SERVICE: 10/31/2018. HISTORY: Patient is a 68-year-old pleasant white female admitted to the hospital after having a fall on the right side of the abdomen. She has been complaining of severe pain on the right side. The patient is getting worse with any movement. She also has been having intermittent chronic nausea and vomiting for the last several months. She had an EGD done by Dr. Snow in September of 2017 that showed antral erosive gastritis and a small hiatal hernia. The patient since then has been on Protonix 40 mg twice daily and takes antiemetics as needed. This morning she states that the nausea and vomiting has completely resolved. She is able to tolerate a regular diet well. She still has severe pain on the right side of the abdomen. PHYSICAL EXAMINATION: She appears comfortable no apparent distress. Vital signs stable. Blood pressure 126/73, pulse is 72, temperature 98. HEENT examination unremarkable. Conjunctivae pink. Sclerae anicteric. Oral cavity no lesions. Neck no JVD or lymph node enlargement. Chest is clear to auscultation. Heart regular rate and rhythm. Abdomen is soft. Bowel sounds are positive. No organomegaly. Extremities no pedal edema. Skin no rashes. Neuro, alert and oriented x3. No focal deficits. LABS: From today, WBC 6.1, hemoglobin 10.9, platelets normal. Basic metabolic panel is within normal limits. IMPRESSION: 1. Intermittent nausea and vomiting of several months duration, status post EGD 2 months ago that showed mild gastritis and a small hiatal hernia. Patient presently on Protonix 40 mg twice daily, doing well. Nausea and vomiting has resolved. 2. Right-sided abdominal pain from recent fall. X-rays did not show any fracture. RECOMMENDATIONS: 1. Continue with symptomatic and supportive care. 2. Continue with Protonix 40 mg twice daily. 3. Advance diet as tolerated. Thank you for this consultation. MMODL / IJN: [id number] /
[2018-10-31 11:54] LABS: Glucose,Whole Blood 163 mg/dL (75-99)
--- NOTE | 2018-10-31 15:17 | P.PN ---
Subjective Progress Note Date: 10/31/18 This is a 68-year-old female patient of Dr. Rose. Patient presented to the hospital with complaints of falls and nausea and vomiting. Patient reports that she is in a row she tripped over her walker and fell. Patient denies any syncopal like episode or loss of consciousness. Patient has a past medical history of pain pump in which she follows with Dr. borja, breast cancer with left cystectomy, diabetes mellitus type 2, GERD, hyperlipidemia, hypertension, sleep apnea and cholecystectomy. Head and cervical neck CT completed showing negative computed tomography scan of the brain no change. Spondylitic changes in the cervical spine. No fracture seen. Rib x-ray completed showing negative rib exam no fracture. Lumbar x-ray completed showing no fracture. Thoracic spine xray completed showing negative thoracic spine exam. Chest x-ray completed showing no acute cardiopulmonary process. Patient recently admitted on 10/02/2018 for nausea and vomiting. At that time KUB x-ray completed showing nonacute abdomen. Patient was also evaluated by GI services. EGD was performed on 09/20/2018 showing moderate gastritis with superficial erosions in the antrum and body, biopsy mild gastritis cardia. Patient was discharged on Protonix twice daily. GI services have been consulted. Patient denies chest pain or shortness of breath. Patient is still having nausea with vomiting. Patient denies any urinary burning or frequency On 10/29/2018 patient is alert and oriented 3. Discussed case with GI services. Patient's nausea has improved since having bowel movements. Continue stool softeners. At this time patient denies chest pain or shortness of breath. Patient denies nausea vomiting or diarrhea. Patient denies any urinary burning or frequency On 10/30/2018 patient was seen and examined on the medical floor she is alert and oriented 3 in no apparent distress she is complaining of constipation and complaining of pain in the right side of the abdomen otherwise no complaints at this time there is no fever or chills no headache or dizziness no chest pain no shortness of breath no cough no nausea or vomiting and no urinary symptoms. On 10/31/2018 patient was seen and examined on the medical floor she is still complaining of right sided upper abdominal pain otherwise she denies any complaints there is no fever or chills no headache or dizziness no chest pain no shortness of breath no cough no nausea or vomiting and no urinary symptoms Objective - Vital Signs Vital signs: Vital Signs Temp 98.5 F 10/31/18 06:48 Pulse 65 10/31/18 06:48 Resp 16 10/31/18 06:48 BP 127/81 10/31/18 06:48 Pulse Ox 93 L 10/31/18 06:48 Intake & Output 10/30/18 10/31/18 10/31/18 18:59 06:59 18:59 Intake Total 900 Balance 900 Intake: Oral 900 Other: # Voids 4 2 2 # Bowel Movements 1 - Exam Head normocephalic and atraumatic Neck supple no JVD no goiter Lungs clear to auscultation bilaterally no wheezing or crackles Heart regular rate and rhythm S1-S2, no rub or gallop Abdomen is soft nontender nondistended positive bowel sounds no hepatosplenomegaly Extremities no edema no cyanosis or clubbing Neuro alert and orientated to 3 - Labs CBC & Chem 7: 10/31/18 06:33 10/31/18 06:33 Labs: Abnormal Lab Results - Last 24 Hours (Table) 10/30/18 10/30/18 10/31/18 Range/Units 17:05 21:03 06:33 Hgb 10.9 L (11.4-16.0) gm/dL MCHC 30.2 L (31.0-37.0) g/dL Chloride (98-107) mmol/L BUN (7-17) mg/dL Glucose (74-99) mg/dL POC Glucose (mg/dL) 161 H 119 H (75-99) mg/dL Total Protein (6.3-8.2) g/dL Albumin (3.5-5.0) g/dL 10/31/18 10/31/18 10/31/18 Range/Units 06:33 06:52 11:43 Hgb (11.4-16.0) gm/dL MCHC (31.0-37.0) g/dL Chloride 110 H (98-107) mmol/L BUN 6 L (7-17) mg/dL Glucose 140 H (74-99) mg/dL POC Glucose (mg/dL) 128 H 163 H (75-99) mg/dL Total Protein 5.7 L (6.3-8.2) g/dL Albumin 2.6 L (3.5-5.0) g/dL Assessment and Plan Plan: 1. Falls. Patient reports that she tripped over walker 2 days in a row. Patient denies loss of consciousness. Head CT completed showing negative computed tomography scan of the brain no change. Spondylitic changes in cervical spine. No fracture seen. X-ray completed showing negative right rib exam no fracture seen. X-ray of lumbar spine completed showing previous surgery. No fracture seen. X-ray of thoracic spine completed showing negative thoracic spine exam. 2. Mild desaturation. This occurred in emergency room post pain medication. X-ray was completed showing no acute cardiopulmonary process. Patient currently 95% on room air clear to auscultation 3. Nausea and vomiting. Patient says been intermittently occurring for months. Patient was recently admitted and evaluated by GI services. EGD was performed in September showing moderate gastritis with superficial erosions in the antrum and body, biopsy is and mild gastritis cardia, biopsied. Amylase and lipase within normal limits. Patient was discharged on Protonix. She started on normal saline at 75. Abdominal x-ray performed showing overall non-obstructive bowel gas pattern. No significant change from prior study. Per GI services attempted to regular diet continue stool softeners avoid constipation continue Protonix 40 mg twice daily follow-up outpatient with Dr. Snow 4. Chronic pain. Patient does have pain pump in which she follows with Dr. Jorge miranda. Patient reports that she saw him last week and adjustments to pain medication was done. 5. Diabetes mellitus type 2. episode of hypoglycemia during last visit. Home medications of vicotza and invokna DC'd. At that time Lantus was also decreased to 30. We'll hold Lantus at this time and place patient on sliding scale coverage. 6. History of cholecystectomy 7. Hypothyroidism. Synthroid resumed 8. History of essential hypertension 9. History of sleep apnea 10. History of GERD DVT prophylaxis Lovenox. GI prophylaxis Protonix
[2018-10-31 17:04] LABS: Glucose,Whole Blood 213 mg/dL (75-99)
[2018-10-31 20:36] LABS: Glucose,Whole Blood 167 mg/dL (75-99)
[2018-10-31] MEDS: [UNRECOGNIZED DRUG - OTHER] SUBLINGUAL SCH (21:21)
[2018-11-01] MEDS: LEVOTHYROXINE 75 MCG TAB PO SCH (05:27)
[2018-11-01 07:04] LABS: Glucose,Whole Blood 151 mg/dL (75-99)
[2018-11-01 08:11] LABS: Basophils # (A) 0.1 k/uL (0-0.2); Basophils % (A) 1 %; Eosinophils # (A) 0.3 k/uL (0-0.7); Eosinophils % (A) 4 %; HCT 35.7 % (34.0-46.0); HGB 10.8 gm/dL (11.4-16.0); Hypochromasia Slight; Lymphocytes # (A) 1.7 k/uL (1.0-4.8); Lymphocytes % (A) 29 %; MCH 26.6 pg (25.0-35.0); MCHC 30.4 g/dL (31.0-37.0); MCV 87.7 fL (80.0-100.0); Mean Platelet Volume 6.5; Monocytes # (A) 0.4 k/uL (0-1.0); Monocytes % (A) 7 %; Neutrophils # (A) 3.5 k/uL (1.3-7.7); Neutrophils % (A) 58 %; Platelet Count 291 k/uL (150-450); RBC 4.07 m/uL (3.80-5.40); WBC 6.1 k/uL (3.8-10.6)
[2018-11-01] MEDS: NON-FORMULARY DRUG (Morphine Pain Pump 1 DOSE) INTRATHECA SCH (08:20)
[2018-11-01] MEDS: MELOXICAM 7.5 MG TAB PO SCH (08:21)
[2018-11-01] MEDS: SENNOSIDES-DOCUSATE SODIUM 1 EACH TAB PO SCH (08:21)
[2018-11-01] MEDS: PANTOPRAZOLE 40 MG TABLET PO SCH (08:22)
[2018-11-01] MEDS: LORATADINE 10 MG TAB PO SCH (08:22)
[2018-11-01] MEDS: ASPIRIN 81 MG PO SCH (08:22)
[2018-11-01] MEDS: ATORVASTATIN 80 MG TAB PO SCH (08:22)
[2018-11-01] MEDS: MONTELUKAST 10 MG TAB PO SCH (08:22)
[2018-11-01] MEDS: DULoxetine HCL 60 MG CAPSULE.DR PO SCH (08:22)
[2018-11-01] MEDS: ENOXAPARIN 40 MG/0.4 ML SYRINGE SQ SCH (08:23)
[2018-11-01] MEDS: INSULIN ASPART (NovoLOG) 100 UNIT/ML VIAL SQ SCH ×2 (08:23→12:21)
[2018-11-01] MEDS: VALSARTAN 40 MG TAB PO SCH (08:24)
[2018-11-01 08:38] LABS: ALT 19 U/L (9-52); AST 18 U/L (14-36); Albumin 2.6 g/dL (3.5-5.0); Alkaline Phosphatase 86 U/L (38-126); Anion Gap 4 mmol/L; Blood Urea Nitrogen 6 mg/dL (7-17); Calcium 8.5 mg/dL (8.4-10.2); Carbon Dioxide 29 mmol/L (22-30); Chloride 108 mmol/L (98-107); Glucose 134 mg/dL (74-99); Potassium 4.4 mmol/L (3.5-5.1); Sodium 141 mmol/L (137-145); Total Bilirubin 0.3 mg/dL (0.2-1.3); Total Protein 5.7 g/dL (6.3-8.2)
[2018-11-01] MEDS: NON-FORMULARY DRUG (Mirabegron [Myrbetriq] 50 MG) PO SCH (08:57)
[2018-11-01 11:31] LABS: Glucose,Whole Blood 191 mg/dL (75-99)
--- NOTE | 2018-11-01 14:05 | P.DS ---
Providers Date of admission: 10/28/18 01:05 Expected date of discharge: 11/01/18 Attending physician: Lexie Craven Consults: 10/28/18 10:09 Consult Physician Routine Consulting Provider: Johnson Duarte Consult Reason/Comments: nausea and vomitting Do you want consulting provider notified?: Yes Primary care physician: Annelise Rose [facility] Course: discharge diagnosis 1. Falls. Patient reports that she tripped over walker 2 days in a row. Patient denies loss of consciousness. Head CT completed showing negative computed tomography scan of the brain no change. Spondylitic changes in cervical spine. No fracture seen. X-ray completed showing negative right rib exam no fracture seen. X-ray of lumbar spine completed showing previous surgery. No fracture seen. X-ray of thoracic spine completed showing negative thoracic spine exam. 2. Mild desaturation. This occurred in emergency room post pain medication. X-ray was completed showing no acute cardiopulmonary process. Patient currently 95% on room air clear to auscultation 3. Nausea and vomiting. Patient says been intermittently occurring for months. Patient was recently admitted and evaluated by GI services. EGD was performed in September showing moderate gastritis with superficial erosions in the antrum and body, biopsy is and mild gastritis cardia, biopsied. Amylase and lipase within normal limits. Patient was discharged on Protonix. She started on normal saline at 75. Abdominal x-ray performed showing overall non-obstructive bowel gas pattern. No significant change from prior study. Per GI services attempted to regular diet continue stool softeners avoid constipation continue Protonix 40 mg twice daily follow-up outpatient with Dr. Snow 4. Chronic pain. Patient does have pain pump in which she follows with Dr. Wheeler. Patient reports that she saw him last week and adjustments to pain medication was done. 5. Diabetes mellitus type 2. episode of hypoglycemia during last visit. Home medications of vicotza and invokna DC'd. At that time Lantus was also decreased to 30. We'll hold Lantus at this time and place patient on sliding scale cov erage. 6. History of cholecystectomy 7. Hypothyroidism. Synthroid resumed 8. History of essential hypertension 9. History of sleep apnea 10. History of GERD hospital Course This is a 68-year-old female patient of Dr. Rose. Patient presented to the hospital with complaints of falls and nausea and vomiting. Patient reports that she is in a row she tripped over her walker and fell. Patient denies any syncopal like episode or loss of consciousness. Patient has a past medical history of pain pump in which she follows with Dr. borja, breast cancer with left cystectomy, diabetes mellitus type 2, GERD, hyperlipidemia, hypertension, sleep apnea and cholecystectomy. Head and cervical neck CT completed showing negative computed tomography scan of the brain no change. Spondylitic changes in the cervical spine. No fracture seen. Rib x-ray completed showing negative rib exam no fracture. Lumbar x-ray completed showing no fracture. Thoracic spine xray completed showing negative thoracic spine exam. Chest x-ray completed showing no acute cardiopulmonary process. Patient recently admitted on 10/02/2018 for nausea and vomiting. At that time KUB x-ray completed showing nonacute abdomen. Patient was also evaluated by GI services. EGD was performed on 09/20/2018 showing moderate gastritis with superficial erosions in the antrum and body, biopsy mild gastritis cardia. Patient was discharged on Protonix twice daily. GI services have been consulted. Patient denies chest pain or shortness of breath. Patient is still having nausea with vomiting. Patient denies any urinary burning or frequency On 10/29/2018 patient is alert and oriented 3. Discussed case with GI services. Patient's nausea has improved since having bowel movements. Continue stool softeners. At this time patient denies chest pain or shortness of breath. Patient denies nausea vomiting or diarrhea. Patient denies any urinary burning or frequency On 10/30/2018 patient was seen and examined on the medical floor she is alert and oriented 3 in no apparent distress she is complaining of constipation and complaining of pain in the right side of the abdomen otherwise no complaints at this time there is no fever or chills no headache or dizziness no chest pain no shortness of breath no cough no nausea or vomiting and no urinary symptoms. On 10/31/2018 patient was seen and examined on the medical floor she is still complaining of right sided upper abdominal pain otherwise she denies any complaints there is no fever or chills no headache or dizziness no chest pain no shortness of breath no cough no nausea or vomiting and no urinary symptoms On 11/01/2018 Patient is alert and oriented X 3. Patient states she feels ready to be discharged home. Patient is still having some tenderness to right side where she fell. X-ray was negative for rib fracture. Patient has been able to tolerate diet without nausea or vomiting. Patient denies chest pain or shortness of breath. Patient advised again to follow up with neurology services in regards to PainPump adjustment. Patient educated on the importance of DVT seen some diabetes meds including the Cozaar and into, due to lower blood sugar. Patient also advised to decrease Lantus dose to 30 units and follow-up with her PCP for further management and close monitoring. Patient also discharged again on Protonix twice a day. Patient educated on the importance of taking this medication regards to symptom management. I performed an examination of the patient and discussed their management with the Nurse Practitioner. I have reviewed the Nurse Practitioner's notes and agree with the documented findings and plan of care Patient Condition at Discharge: Stable Plan - Discharge Summary Discharge Rx Participant: No New Discharge Prescriptions: New Sennosides-Docusate Sodium [Senokot-S] 2 tab PO BID #120 tablet Pantoprazole [Protonix] 40 mg PO BID 30 Days #60 tablet.dr Continue Aspirin EC [Ecotrin Low Dose] 81 mg PO DAILY Methocarbamol [Robaxin] 500 mg PO BID PRN PRN Reason: Pain traMADol HCL [Ultram] 50 mg PO DAILY PRN PRN Reason: Pain Rosuvastatin Calcium [Crestor] 40 mg PO DAILY Levothyroxine Sodium [Synthroid] 75 mcg PO DAILY Valsartan [Diovan] 40 mg PO DAILY Celecoxib [CeleBREX] 200 mg PO DAILY Montelukast [Singulair] 10 mg PO DAILY Mirabegron [Myrbetriq] 50 mg PO DAILY DULoxetine HCL [Cymbalta] 60 mg PO DAILY Nocdurna 27.7 mcg SUBLINGUAL HS Ibuprofen [Motrin Ib] 200 mg PO Q6H PRN PRN Reason: Pain Morphine Pain Pump 1 dose INTRATHECA CONTINUOUS Changed Insulin Glargine,Hum.rec.anlog [Lantus Solostar] 30 unit SQ DAILY #0 Discontinued metFORMIN HCL 1,000 mg PO BID Canagliflozin [Invokana] 100 mg PO DAILY Liraglutide [Victoza 3-Dread] 1.8 mg SQ DAILY Esomeprazole Magnesium [NexIUM] 80 mg PO DAILY Discharge Medication List Aspirin EC [Ecotrin Low Dose] 81 mg PO DAILY 04/22/16 [History] Methocarbamol [Robaxin] 500 mg PO BID PRN 04/22/16 [History] traMADol HCL [Ultram] 50 mg PO DAILY PRN 04/22/16 [History] Rosuvastatin Calcium [Crestor] 40 mg PO DAILY 06/02/16 [History] Levothyroxine Sodium [Synthroid] 75 mcg PO DAILY 11/01/17 [History] Celecoxib [CeleBREX] 200 mg PO DAILY 06/21/18 [History] DULoxetine HCL [Cymbalta] 60 mg PO DAILY 06/21/18 [History] Mirabegron [Myrbetriq] 50 mg PO DAILY 06/21/18 [History] Montelukast [Singulair] 10 mg PO DAILY 06/21/18 [History] Valsartan [Diovan] 40 mg PO DAILY 06/21/18 [History] Nocdurna 27.7 mcg SUBLINGUAL HS 08/20/18 [History] Ibuprofen [Motrin Ib] 200 mg PO Q6H PRN 09/15/18 [History] Morphine Pain Pump 1 dose INTRATHECA CONTINUOUS 10/27/18 [History] Sennosides-Docusate Sodium [Senokot-S] 2 tab PO BID #120 tablet 10/29/18 [Rx] Insulin Glargine,Hum.rec.anlog [Lantus Solostar] 30 unit SQ DAILY #0 11/01/18 [Rx] Pantoprazole [Protonix] 40 mg PO BID 30 Days #60 tablet. 11/01/18 [Rx] Follow up Appointment(s)/Referral(s): [facility], [NON-STAFF] - Annelise Rose DO [Primary Care Provider] - 1-2 days Eliceo Snow MD [STAFF PHYSICIAN] - 11/05/18 8:15 am Patient Instructions/Handouts: Fall Prevention for Older Adults (ED) Activity/Diet/Wound Care/Special Instructions: Patient to adhere to previously discussed treatment plan and will take medication(s) as directed. Patient to follow up with PCP in 1-2 days. Patient to return to ED if symptoms do not improve. Please follow-up with primary care provider in 1-2 days. Return to ER if new signs or symptoms develop or if condition worsens in any way. Discharge Disposition: HOME SELF-CARE
[2018-11-01 14:11] VITALS: BP 131/80; PULSE 65; TEMP 98
== END 2018-11-01 15:44 | disposition home health service (06) ==
LOC: EC 18:49 → 4SSUR 10-28 01:05
PROVIDERS: ADMIT Internal Medicine; ATTEND Internal Medicine
DX: R07.81 Pleurodynia (principal); Z91.81 History of falling; R29.6 Repeated falls; E03.9 Hypothyroidism, unspecified; E78.5 Hyperlipidemia, unspecified; R11.2 Nausea with vomiting, unspecified; E11.9 Type 2 diabetes mellitus without complications; G47.33 Obstructive sleep apnea (adult) (pediatric); G89.4 Chronic pain syndrome; I10 Essential (primary) hypertension; I25.2 Old myocardial infarction; J44.9 Chronic obstructive pulmonary disease, unspecified; K21.9 Gastro-esophageal reflux disease without esophagitis; K44.9 Diaphragmatic hernia without obstruction or gangrene; K59.09 Other constipation; Z79.4 Long term (current) use of insulin; Z79.82 Long term (current) use of aspirin; Z79.891 Long term (current) use of opiate analgesic; Z79.890 Hormone replacement therapy; Z79.899 Other long term (current) drug therapy; Z80.0 Family history of malignant neoplasm of digestive organs; Z80.6 Family history of leukemia; Z85.3 Personal history of malignant neoplasm of breast; Z90.12 Acquired absence of left breast and nipple; Z90.49 Acquired absence of other specified parts of digestive tract; Z90.710 Acquired absence of both cervix and uterus; Z98.82 Breast implant status
CPT/HCPCS: 96361 ×4; 96374; 96375; 96372; 99285; 36415; 94640; 97116 ×2; 97162; 97530; 97535 ×2; 97166; 80053 ×5; 82150; 83690; 85025 ×5; 72072; 72100; 71100; 71046; 74021; 72125; 70450; G0378 ×5; J2270; J2405; J1650 ×4; C9113 ×2

== ENCOUNTER 2018-11-01 17:03 | Inpatient (IN) | payer MEDICARE, OTHER ==
[2018-11-01] MEDS ORDERED: SODIUM CHLORIDE 0.9% 500 ML 500 ML IV STA (17:33)
--- NOTE | 2018-11-01 17:35 | ED ---
General Adult HPI - General Chief complaint: Fall Stated complaint: fall Time Seen by Provider: 11/01/18 17:16 Source: patient, family, EMS, RN notes reviewed Mode of arrival: EMS Limitations: no limitations - History of Present Illness Initial comments: 68-year-old female with a complicated past medical history presents to the emergency department for a chief complaint of fall. Patient was discharged from the hospital due to falls earlier today. She she went to the movie theater and went to step up on the curb when she fell backwards and hit her head. Patient did not lose consciousness. Patient is not on blood thinners. Patient states she does have a headache at this time. She denies any neck pain. Patient is also complaining of right hip and buttock pain as well as left shoulder pain. Patient denies feeling lightheaded or dizzy prior to fall. She does state that now after she hit her head she feels lightheaded when sitting up. Patient has no other complaints at this time including shortness of breath, chest pain, abdominal pain, nausea or vomiting, headache, or visual changes. - Related Data Home Medications Medication Instructions Recorded Confirmed Aspirin EC [Ecotrin Low Dose] 81 mg PO DAILY 04/22/16 11/01/18 Methocarbamol [Robaxin] 500 mg PO BID PRN 04/22/16 11/01/18 traMADol HCL [Ultram] 50 mg PO DAILY PRN 04/22/16 11/01/18 Rosuvastatin Calcium [Crestor] 40 mg PO DAILY 06/02/16 11/01/18 Levothyroxine Sodium [Synthroid] 75 mcg PO DAILY 11/01/17 11/01/18 Celecoxib [CeleBREX] 200 mg PO DAILY 06/21/18 11/01/18 DULoxetine HCL [Cymbalta] 60 mg PO DAILY 06/21/18 11/01/18 Mirabegron [Myrbetriq] 50 mg PO DAILY 06/21/18 11/01/18 Montelukast [Singulair] 10 mg PO DAILY 06/21/18 11/01/18 Valsartan [Diovan] 40 mg PO DAILY 06/21/18 11/01/18 Nocdurna 27.7 mcg SUBLINGUAL HS 08/20/18 11/01/18 Ibuprofen [Motrin Ib] 200 mg PO Q6H PRN 09/15/18 11/01/18 Morphine Pain Pump 1 dose INTRATHECA CONTINUOUS 10/27/18 11/01/18 Previous Rx's Medication Instructions Recorded Sennosides-Docusate Sodium 2 tab PO BID #120 tablet 10/29/18 [Senokot-S] Insulin Glargine,Hum.rec.anlog 30 unit SQ DAILY #0 11/01/18 [Lantus Solostar] Pantoprazole [Protonix] 40 mg PO BID 30 Days #60 tablet. 11/01/18 Allergies Allergy/AdvReac Type Severity Reaction Status Date / Time neomycin Allergy Itching Verified 11/01/18 17:59 Sulfa (Sulfonamide Allergy Dyspnea Verified 11/01/18 17:59 Antibiotics) sulfamethoxazole Allergy Dyspnea Verified 11/01/18 17:59 [From ] trimethoprim [From ] Allergy Dyspnea Verified 11/01/18 17:59 codeine AdvReac headache Verified 11/01/18 17:59 morphine AdvReac Itching Verified 11/01/18 17:59 Review of Systems ROS Statement: Those systems with pertinent positive or pertinent negative responses have been documented in the HPI. ROS Other: All systems not noted in ROS Statement are negative. Past Medical History Past Medical History: Cancer, Diabetes Mellitus, GERD/Reflux, Hyperlipidemia, Hypertension, Pneumonia, Sleep Apnea/CPAP/BIPAP Additional Past Medical History / Comment(s): Pt recently admitted 08/22/18 with pneumonia/sepsis possible aspiration pne, N/V, UTI, hyperkalemia and constipation. Other Hx: IDDM type II, chronic low back pain radiates to L leg/has pain pump, herniated discs, colitis, black stools, L breast cancer with mastectomy, irregular heart beat once, JANENE with Cpap, dysphagia, hypothyroid, constipation. History of Any Multi-Drug Resistant Organisms: MRSA Date of last positivie culture/infection: 04/02/17 MDRO Source:: URINE Past Surgical History: Back Surgery, Breast Surgery, Cholecystectomy, Hysterectomy Additional Past Surgical History / Comment(s): Lt Mastectomy W/ RECONSTRUCTION; RT BREAST IMPLANT. SINUS SURG X3., colonoscopy, pain pump implant Past Anesthesia/Blood Transfusion Reactions: Previous Problems w/ Anesthesia Additional Past Anesthesia/Blood Transfusion Reaction / Comment(s): HX OF DAMAGE TO VOCAL CORDS POST-OP BACK SURGERY Past Psychological History: No Psychological Hx Reported Smoking Status: Never smoker Past Alcohol Use History: None Reported Past Drug Use History: None Reported - Past Family History Father Sister(s) Family Medical History: Cancer Additional Family Medical History / Comment(s): Father had leukemia and sister had pancreatic cancer. Brother(s) Family Medical History: Cancer Additional Family Medical History / Comment(s): Prostate cancer, ANEURYSM Mother Family Medical History: No Reported History Additional Family Medical History / Comment(s): Mother was healthy. General Exam - General Exam Comments Initial Comments: Right lower extremity: Pain noted to the posterior right hip as well as lateral right hip. No erythema or edema. Patient has 90 flexion of the right hip. DP pulse 2+ in the right lower extremity and equal to the left lower extremity. Capillary refill less than 2 seconds Left shoulder: Radial pulse 2+ the left upper extremity, capillary refill less than 2 seconds. Patient has 90 of flexion and abduction of the left shoulder. No contusions or abrasions noted. Limitations: no limitations General appearance: alert, in no apparent distress Head exam: Present: normocephalic. Absent: atraumatic (Patient has a large 7 cm x 4 cm contusion noted to the posterior head with abrasion noted. No lacerations. Patient refused tetanus shot stating this will make her sick.) Eye exam: Present: normal appearance, PERRL, EOMI. Absent: scleral icterus, conjunctival injection, periorbital swelling ENT exam: Present: normal exam, normal oropharynx, mucous membranes moist, TM's normal bilaterally, normal external ear exam Neck exam: Present: normal inspection, full ROM. Absent: tenderness, meningismus, lymphadenopathy Respiratory exam: Present: normal lung sounds bilaterally. Absent: respiratory distress, wheezes, rales, rhonchi, stridor Cardiovascular Exam: Present: regular rate, normal rhythm, normal heart sounds. Absent: systolic murmur, diastolic murmur, rubs, gallop, clicks GI/Abdominal exam: Present: soft, normal bowel sounds. Absent: distended, tenderness, guarding, rebound, rigid Neurological exam: Present: alert, oriented X3, CN II-XII intact Psychiatric exam: Present: normal affect, normal mood Course Vital Signs 11/01/18 11/01/18 11/01/18 17:16 20:30 21:00 Temperature 98.1 F Pulse Rate 68 67 74 Respiratory 18 16 14 Rate Blood Pressure 163/71 149/77 152/86 O2 Sat by Pulse 95 95 94 L Oximetry 11/01/18 21:30 Temperature Pulse Rate 79 Respiratory 14 Rate Blood Pressure 152/86 O2 Sat by Pulse 93 L Oximetry - Reevaluation(s) Reevaluation #1: 11/01/18 17:34 patient has pain pump of morphine and dilaudid EKG Findings - EKG Comments: EKG Findings:: Normal sinus rhythm, ventricular rate 71, MS interval 166, QTc 454, no evidence of ST elevation or depression Medical Decision Making - Medical Decision Making 68-year-old female with complicated past medical history presents to the emergency department for a chief complaint of falls. She was discharged earlier for similar complaint. On exam patient has large hematoma noted to the posterior head. No focal neuro deficits. No neck tenderness. CT brain and C- spine are negative. There is abrasion noted over hematoma but no lacerations. Patient refuses tetanus shot stating this makes her sick. Shoulder hip and pelvis x-ray are negative. However patient refuses to try to stand stating she is dizzy. Patient stating she cannot go home and feels as though she will fall. is also concerned about this as he states they live quite some time away and he will have to call an ambulance if she falls. Magnesium is low at 1.3. This was replaced. Patient already has an intrathecal pain pump of morphine and Dilaudid. Patient was not given additional pain medicine as she is complaining of lightheadedness. Patient will be admitted for further management. - Lab Data Result diagrams: 11/01/18 19:35 11/01/18 19:35 Lab Results 11/01/18 11/01/18 Range/Units 19:35 19:35 WBC 8.9 (3.8-10.6) k/uL RBC 4.35 (3.80-5.40) m/uL Hgb 12.0 (11.4-16.0) gm/dL Hct 37.7 (34.0-46.0) % MCV 86.7 (80.0-100.0) fL MCH 27.6 (25.0-35.0) pg MCHC 31.8 (31.0-37.0) g/dL RDW 15.1 (11.5-15.5) % Plt Count 295 (150-450) k/uL Neutrophils % 78 % Lymphocytes % 15 % Monocytes % 4 % Eosinophils % 2 % Basophils % 0 % Neutrophils # 6.9 (1.3-7.7) k/uL Lymphocytes # 1.3 (1.0-4.8) k/uL Monocytes # 0.4 (0-1.0) k/uL Eosinophils # 0.2 (0-0.7) k/uL Basophils # 0.0 (0-0.2) k/uL Hypochromasia Slight Sodium 141 (137-145) mmol/L Potassium 4.2 (3.5-5.1) mmol/L Chloride 104 (98-107) mmol/L Carbon Dioxide 29 (22-30) mmol/L Anion Gap 8 mmol/L BUN 7 (7-17) mg/dL Creatinine 0.61 (0.52-1.04) mg/dL Est GFR (CKD-EPI)AfAm >90 (>60 ml/min/1.73 sqM) Est GFR (CKD-EPI)NonAf >90 (>60 ml/min/1.73 sqM) Glucose 168 H (74-99) mg/dL Calcium 9.0 (8.4-10.2) mg/dL Magnesium 1.3 L (1.6-2.3) mg/dL Total Bilirubin 0.3 (0.2-1.3) mg/dL AST 23 (14-36) U/L ALT 21 (9-52) U/L Alkaline Phosphatase 95 (38-126) U/L Total Protein 6.5 (6.3-8.2) g/dL Albumin 3.1 L (3.5-5.0) g/dL Disposition Clinical Impression: Fall, Head injury, Hypomagnesemia Disposition: ADMITTED IP TO THIS HOSP Condition: Fair Is patient prescribed a controlled substance at d/c from ED?: No Time of Disposition: 21:02
--- NOTE | 2018-11-01 18:36 | CT ---
EXAMINATION TYPE: CT brain fidencio borges con DATE OF EXAM: 11/01/2018 COMPARISON: 10/27/2018 HISTORY: Fall today with posterior head injury CT DLP: 1332.7 mGycm Automated exposure control for dose reduction was used. TECHNIQUE: CT scan of the head and cervical spine are performed without contrast. FINDINGS: Ventricles have normal size. There is no mass effect nor midline shift. There is no sign of intracranial hemorrhage. There is a large right occipital scalp hematoma. The calvarium is intact. There is multilevel spondylotic changes in the cervical spine. There is old anterior fusion at C4 and C5 and C6 and C7. There are large anterior hypertrophic osteophytes at C2-3 and C3-4. The facet join ts are intact. There is no evidence of a fracture. Skull base is intact. IMPRESSION: No acute intracranial abnormality. Large right occipital parietal scalp hematoma. Brain unchanged com pared to last exam. Spondylotic changes in the cervical spine. No fracture. No change.
--- NOTE | 2018-11-01 18:39 | XR ---
EXAMINATION TYPE: XR Hip RT and AP Pelvis DATE OF EXAM: 11/01/2018 COMPARISON: NONE HISTORY: Pain after falling TECHNIQUE: A single AP view of the pelvis is obtained. Two views of the right hip are obtained. FINDINGS: The pelvic ring is intact. Proximal right femur and hip joint are intact. There is some sp urring of the greater trochanter of the right femur. Sacroiliac joints are intact. Hip joint space is fairly normal. IMPRESSION: No acute abnormality of the pelvis and right hip. No fracture.
--- NOTE | 2018-11-01 18:40 | XR ---
EXAMINATION TYPE: XR shoulder complete LT DATE OF EXAM: 11/01/2018 COMPARISON: NONE HISTORY: Shoulder pain TECHNIQUE: 3 views FINDINGS: I see no fracture nor dislocation. There is minor spurring of the inferior glenoid. Proxima l humerus is intact. IMPRESSION: Mild spurring. Otherwise negative left shoulder exam.
[2018-11-01 20:10] LABS: ALT 21 U/L (9-52); AST 23 U/L (14-36); Albumin 3.1 g/dL (3.5-5.0); Alkaline Phosphatase 95 U/L (38-126); Anion Gap 8 mmol/L; Blood Urea Nitrogen 7 mg/dL (7-17); Carbon Dioxide 29 mmol/L (22-30); Chloride 104 mmol/L (98-107); Glucose 168 mg/dL (74-99); Magnesium 1.3 mg/dL (1.6-2.3); Potassium 4.2 mmol/L (3.5-5.1); Sodium 141 mmol/L (137-145); Total Bilirubin 0.3 mg/dL (0.2-1.3); Total Protein 6.5 g/dL (6.3-8.2)
[2018-11-01 20:22] LABS: Basophils % (A) 0 %; Eosinophils # (A) 0.2 k/uL (0-0.7); Eosinophils % (A) 2 %; HCT 37.7 % (34.0-46.0); Hypochromasia Slight; Lymphocytes # (A) 1.3 k/uL (1.0-4.8); Lymphocytes % (A) 15 %; MCH 27.6 pg (25.0-35.0); MCHC 31.8 g/dL (31.0-37.0); MCV 86.7 fL (80.0-100.0); Mean Platelet Volume 6.4; Monocytes # (A) 0.4 k/uL (0-1.0); Monocytes % (A) 4 %; Neutrophils # (A) 6.9 k/uL (1.3-7.7); Neutrophils % (A) 78 %; Platelet Count 295 k/uL (150-450); RBC 4.35 m/uL (3.80-5.40); RDW 15.1 % (11.5-15.5); WBC 8.9 k/uL (3.8-10.6)
[2018-11-01] MEDS ORDERED: ONDANSETRON 4 MG/2 ML VIAL IVP PRN (21:00)
[2018-11-01] MEDS ORDERED: NALOXONE 0.4 MG/ML 1 ML VIAL IV PRN (21:00)
[2018-11-01] MEDS: MAGNESIUM SULFATE-D5W PMX 1 GM in DEXTROSE/WATER 1 100ML.BAG IVPB SCH (21:51)
[2018-11-01 22:55] LABS: Glucose,Whole Blood 160 mg/dL (75-99)
[2018-11-01] MEDS: SODIUM CHLORIDE 0.9% 1,000 ML IV SCH (22:56)
[2018-11-02] MEDS: MAGNESIUM SULFATE-D5W PMX 1 GM in DEXTROSE/WATER 1 100ML.BAG IVPB SCH (00:10)
[2018-11-02] MEDS: traMADol 50 MG TAB PO PRN ×5 (06:14→20:20)
[2018-11-02 06:58] LABS: Glucose,Whole Blood 104 mg/dL (75-99)
[2018-11-02] MEDS: INSULIN ASPART (NovoLOG) 100 UNIT/ML VIAL SQ SCH ×4 (07:32→20:20)
[2018-11-02] MEDS ORDERED: METHOCARBAMOL 500 MG TAB PO PRN (08:15)
[2018-11-02] MEDS ORDERED: traMADol 50 MG TAB PO PRN (08:15)
[2018-11-02 08:51] LABS: Basophils % (A) 0 %; Eosinophils # (A) 0.3 k/uL (0-0.7); Eosinophils % (A) 3 %; HCT 34.7 % (34.0-46.0); HGB 11.5 gm/dL (11.4-16.0); Lymphocytes # (A) 1.5 k/uL (1.0-4.8); Lymphocytes % (A) 17 %; MCH 27.7 pg (25.0-35.0); MCV 83.8 fL (80.0-100.0); Mean Platelet Volume 6.6; Monocytes # (A) 0.5 k/uL (0-1.0); Monocytes % (A) 6 %; Neutrophils # (A) 6.1 k/uL (1.3-7.7); Neutrophils % (A) 72 %; Platelet Count 276 k/uL (150-450); RBC 4.15 m/uL (3.80-5.40); RDW 15.4 % (11.5-15.5); WBC 8.5 k/uL (3.8-10.6)
[2018-11-02 09:06] LABS: ALT 24 U/L (9-52); AST 20 U/L (14-36); Albumin 2.9 g/dL (3.5-5.0); Alkaline Phosphatase 69 U/L (38-126); Anion Gap 6 mmol/L; Blood Urea Nitrogen 7 mg/dL (7-17); Calcium 8.5 mg/dL (8.4-10.2); Carbon Dioxide 29 mmol/L (22-30); Chloride 107 mmol/L (98-107); Glucose 108 mg/dL (74-99); Magnesium 1.7 mg/dL (1.6-2.3); Potassium 3.9 mmol/L (3.5-5.1); Sodium 142 mmol/L (137-145); Total Bilirubin 0.4 mg/dL (0.2-1.3); Total Protein 6.4 g/dL (6.3-8.2)
[2018-11-02] MEDS: SENNOSIDES-DOCUSATE SODIUM 1 EACH TAB PO SCH ×2 (10:35→20:20)
[2018-11-02] MEDS: ATORVASTATIN 80 MG TAB PO SCH (10:35)
[2018-11-02] MEDS: PANTOPRAZOLE 40 MG TABLET PO SCH ×2 (10:36→18:01)
[2018-11-02] MEDS: LEVOTHYROXINE 75 MCG TAB PO SCH (10:36)
[2018-11-02] MEDS: MONTELUKAST 10 MG TAB PO SCH (10:36)
[2018-11-02] MEDS: INSULIN DETEMIR (LEVEMIR) 100 UNIT/ML SYR SQ SCH (10:36)
[2018-11-02] MEDS: DULoxetine HCL 60 MG CAPSULE.DR PO SCH (10:36)
[2018-11-02] MEDS: MELOXICAM 7.5 MG TAB PO SCH (10:36)
[2018-11-02] MEDS: SODIUM CHLORIDE 0.9% 1,000 ML IV SCH ×2 (10:39→12:29)
[2018-11-02] MEDS: VALSARTAN 40 MG TAB PO SCH (10:39)
[2018-11-02] MEDS: Mirabegron [Myrbetriq] PO SCH (10:40)
--- NOTE | 2018-11-02 11:14 | P.HPIM ---
History of Present Illness H&P Date: 11/02/18 This is a 68-year-old female patient of Dr. Rose. Patient presented to ER with complaints of a fall. Patient was discharged from hospital yesterday. Patient reports that she felt significantly improved upon discharge so well in fact that she decided to the movies with her . Patient reports that she was getting out of the car and decided to not use her walker due to the short distance she had to walk and fell and hit her head on the cement. Patient reports that she remembers she did not lose consciousness and reports that if she had a walker present she would not have fallen. Patient reports that she did not feel dizzy or lightheaded prior to fall. Patient reports that she just lost her balance. Patient reports that she does usually use her walker regularly but sometimes she does forget or feels that she is able to make a short distance without it. Patient has a past medical history of breast cancer, diabetes mellitus, GERD, hyperlipidemia, hypertension, pneumonia, sleep apnea and chronic pain in which she has a PainPump and managed by Dr. Lewis. CT of brain and C-spine completed showing no acute intracranial abnormality. Large right occipital Scalp hematoma. Brain unchanged compared to last exam. Spondylitic changes in the cervical spine no fracture. No change. X-ray of right hip completed showing no acute abnormality of the pelvis and right hip. No fracture. Shoulder x-ray completed showing mild spurring. Otherwise negative left shoulder exam. EKG completed showing normal sinus rhythm. Possible anterior infarct age undetermined. Patient's magnesium 1.3 on admission replaced. Repeat 1.7. At this time patient is complaining of some soreness to have her she fell. Patient is complaining of pain to right hip. Patient denies chest pain or shortness of breath. Patient denies nausea vomiting or diarrhea. Patient denies any urinary burning or frequency. Physical therapy has been consulted. Review of Systems Visit for HPI otherwise unremarkable Past Medical History Past Medical History: Cancer, Diabetes Mellitus, GERD/Reflux, Hyperlipidemia, Hypertension, Pneumonia, Sleep Apnea/CPAP/BIPAP Additional Past Medical History / Comment(s): Pt recently admitted 08/22/18 with pneumonia/sepsis possible aspiration pne, N/V, UTI, hyperkalemia and c onstipation. Other Hx: IDDM type II, chronic low back pain radiates to L leg/has pain pump, herniated discs, colitis, black stools, L breast cancer with mastectomy, irregular heart beat once, JANENE with Cpap, dysphagia, hypothyroid, constipation. History of Any Multi-Drug Resistant Organisms: MRSA Date of last positivie culture/infection: 04/02/17 MDRO Source:: URINE Past Surgical History: Back Surgery, Breast Surgery, Cholecystectomy, Hysterectomy Additional Past Surgical History / Comment(s): Lt Mastectomy W/ RECONSTRUCTION; RT BREAST IMPLANT. SINUS SURG X3., colonoscopy, pain pump implant Past Anesthesia/Blood Transfusion Reactions: Previous Problems w/ Anesthesia Additional Past Anesthesia/Blood Transfusion Reaction / Comment(s): HX OF DAMAGE TO VOCAL CORDS POST-OP BACK SURGERY Past Psychological History: No Psychological Hx Reported Smoking Status: Never smoker Past Alcohol Use History: None Reported Past Drug Use History: None Reported - Past Family History Father Sister(s) Family Medical History: Cancer Additional Family Medical History / Comment(s): Father had leukemia and sister had pancreatic cancer. Brother(s) Family Medical History: Cancer Additional Family Medical History / Comment(s): Prostate cancer, ANEURYSM Mother History Unknown: Yes Family Medical History: No Reported History Additional Family Medical History / Comment(s): Mother was healthy. Medications and Allergies Home Medications Medication Instructions Recorded Confirmed Type Aspirin EC [Ecotrin Low Dose] 81 mg PO DAILY 04/22/16 11/01/18 History Methocarbamol [Robaxin] 500 mg PO BID PRN 04/22/16 11/01/18 History traMADol HCL [Ultram] 50 mg PO DAILY PRN 04/22/16 11/01/18 History Rosuvastatin Calcium [Crestor] 40 mg PO DAILY 06/02/16 11/01/18 History Levothyroxine Sodium [Synthroid] 75 mcg PO DAILY 11/01/17 11/01/18 History Celecoxib [CeleBREX] 200 mg PO DAILY 06/21/18 11/01/18 History DULoxetine HCL [Cymbalta] 60 mg PO DAILY 06/21/18 11/01/18 History Mirabegron [Myrbetriq] 50 mg PO DAILY 06/21/18 11/01/18 History Montelukast [Singulair] 10 mg PO DAILY 06/21/18 11/01/18 History Valsartan [Diovan] 40 mg PO DAILY 06/21/18 11/01/18 History Nocdurna 27.7 mcg SUBLINGUAL HS 08/20/18 11/01/18 History Ibuprofen [Motrin Ib] 200 mg PO Q6H PRN 09/15/18 11/01/18 History Morphine Pain Pump 1 dose INTRATHECA CONTINUOUS 10/27/18 11/01/18 History Sennosides-Docusate Sodium 2 tab PO BID #120 tablet 10/29/18 11/01/18 Rx [Senokot-S] Insulin Glargine,Hum.rec.anlog 30 unit SQ DAILY #0 11/01/18 11/01/18 Rx [Lantus Solostar] Pantoprazole [Protonix] 40 mg PO BID 30 Days #60 tablet. 11/01/18 11/01/18 Rx Allergies Allergy/AdvReac Type Severity Reaction Status Date / Time neomycin Allergy Itching Verified 11/01/18 17:59 Sulfa (Sulfonamide Allergy Dyspnea Verified 11/01/18 17:59 Antibiotics) sulfamethoxazole Allergy Dyspnea Verified 11/01/18 17:59 [From ] trimethoprim [From ] Allergy Dyspnea Verified 11/01/18 17:59 codeine AdvReac headache Verified 11/01/18 17:59 morphine AdvReac Itching Verified 11/01/18 17:59 Physical Exam Vitals: Vital Signs Temp Pulse Pulse Pulse Resp BP BP 11/02/18 05:09 97.9 F 72 18 133/72 11/01/18 22:44 98.3 F 75 18 166/81 11/01/18 21:30 79 14 152/86 11/01/18 21:00 74 14 152/86 11/01/18 20:30 67 16 149/77 11/01/18 17:16 98.1 F 68 18 163/71 Pulse Ox 11/02/18 05:09 92 L 11/01/18 22:44 93 L 11/01/18 21:30 93 L 11/01/18 21:00 94 L 11/01/18 20:30 95 11/01/18 17:16 95 Intake and Output 11/01/18 11/02/18 11/02/18 22:59 06:59 14:59 Intake Total 1420 Balance 1420 Intake: Intake, IV Titration 1300 Amount Magnesium Sulfate-D5w Pmx 200 1 gm In Dextrose/Water 1 100ml.bag @ 100 mls/hr IVPB Q1H [facility] Rx#: [id number] Sodium Chloride 0.9% 1, 600 000 ml @ 75 mls/hr IV . [id number] [facility] Rx#:[id number] Sodium Chloride 0.9% 500 500 ml 500 ml @ 999 mls/hr IV .Q31M [facility] Rx#:[id number] Oral 120 Other: Voiding Method Diaper Incontinent # Voids 3 Weight 79.832 kg Head normocephalic. Dime size not noted to patient's right lower scale with dry blood. Neck supple Lungs clear to auscultation bilaterally no wheezing or crackles Heart regular rate and rhythm S1-S2, no rub or gallop Abdomen is soft nontender nondistended positive bowel sounds no hepatosplenomegaly Extremities no edema Neuro alert and orientated to 3 Results CBC & Chem 7: 11/02/18 08:27 11/02/18 07:59 Labs: Abnormal Lab Results - Last 24 Hours (Table) 11/01/18 11/01/18 11/02/18 Range/Units 19:35 22:52 06:55 Glucose 168 H (74-99) mg/dL POC Glucose (mg/dL) 160 H 104 H (75-99) mg/dL Magnesium 1.3 L (1.6-2.3) mg/dL Albumin 3.1 L (3.5-5.0) g/dL 11/02/18 Range/Units 07:59 Glucose 108 H (74-99) mg/dL POC Glucose (mg/dL) (75-99) mg/dL Magnesium (1.6-2.3) mg/dL Albumin 2.9 L (3.5-5.0) g/dL Thrombosis Risk Factor Assmnt - Choose All That Apply Each Factor Represents 1 point: Obesity (BMI >25) Each Risk Factor Represents 2 Points: Age 61-74 years Thrombosis Risk Factor Assessment Total Risk Factor Score: 3 Thrombosis Risk Factor Assessment Level: Moderate Risk Assessment and Plan Assessment: 1. Fall due to loss of balance and not using walker. CT of head and C-spine completed showing no acute intracranial abnormality. Large right hospital. No scalp hematoma. Great and change compared to last exam. Spondylitic changes cervical spine. No fracture. No change. Right hip x-ray completed showing no acute abnormality pelvis and right hip. No fracture. Shoulder x-ray completed showing mild spurring otherwise negative left shoulder exam. Physical therapy has been consulted. 2. Chronic back pain. Patient follows with Dr. Lewis, patient has pain pump 3. Diabetes mellitus type 2. Patient currently maintained on Lantus 30 units nightly. Sliding scale coverage has been added 4. History of cholecystectomy 5. History of hypothyroidism 6. History of essential hypertension 7. History of sleep apnea 9. History of GERD 10. hypomagnesium. Initial magnesium level 1.3. Replace per protocol repeat 1.7 DVT prophy laxis SCDs due to scalp hematoma. GI prophylaxis Protonix Physical therapy has been consulted. Will consult social work case manager to plan for possible rehab discharge due to patient's increased weakness Time with Patient: Greater than 30 (Greater than 60% of the total time spent in counseling and coordination of care. I performed an examination of the patient and discussed their management with the Nurse Practitioner. I have reviewed the Nurse Practitioner's notes and agree with the documented findings and plan of care)
[2018-11-02 11:25] LABS: Glucose,Whole Blood 189 mg/dL (75-99)
[2018-11-02 13:26] VITALS: BMI 31.1
[2018-11-02] MEDS: ACETAMINOPHEN TAB 325 MG TAB PO PRN (15:02)
--- NOTE | 2018-11-02 16:47 | P.CONS ---
History of Present Illness - Chief Complaint Walking difficulty - History of Present Illness I had the opportunity to see patient for inpatient rehab consultation with regard to walking difficulty. She was admitted to [facility] November 01. History of recent hospitalization. Apparently felt well and went to the movies. She is reported to have fallen, has no recollection of the fall event. Workup shows h ead CT with large right occipital hematoma. Left shoulder with moderate spur. Right hip and pelvis negative. PT and OT prescribed. OT reports supervision for upper dressing and moderate assistance for lower dressing and bathing and supervision for toileting and minimal assistance for transfers. Previous functional history as elicited patient: 68-year-old right-handed white female who is lives in one floor home with . Both retired. They share the cooking and laundry. prefers to do all the driving. Patient states that she can drive. Independent with standing shower, gait with roller walker. Denies tobacco or alcohol. Dr. Annelise Rose's regular doctor. Family history father with cancer and mother with brain aneurysm or stroke. Review of Systems Review of systems: ENT: Denies sneezes or discharge. Eyes: Denies discharge or photophobia. Cardiac: Denies chest pain or palpitation. Pulmonary: Denies cough or shortness of breath. Breast: Denies discharge or lumps. Gastrointestinal: Denies nausea, emesis, constipation, diarrhea. Genitourinary: Denies discharge or frequency. Musculoskeletal: Denies muscle or bone aches. Neurologic: Perhaps with some mild confusion. Reports that her legs are weak. Endocrine: Denies shakes or sweats. Oncology: Denies cancers. Dermatologic: Denies rash, itching, pruritus. ALLERGY/immunology: Denies sneezes, rashes. Past Medical History Past Medical History: Cancer, Diabetes Mellitus, GERD/Reflux, Hyperlipidemia, Hypertension, Pneumonia, Sleep Apnea/CPAP/BIPAP Additional Past Medical History / Comment(s): Pt recently admitted 08/22/18 with pneumonia/sepsis possible aspiration pne, N/V, UTI, hyperkalemia and constipation. Other Hx: IDDM type II, chronic low back pain radiates to L leg/has pain pump, herniated discs, colitis, black stools, L breast cancer with mastectomy, irregular heart beat once, JANENE with Cpap, dysphagia, hypothyroid, constipation. History of Any Multi-Drug Resistant Organisms: MRSA Year Discovered:: 04/02/17 MDRO Source:: URINE Past Surgical History: Back Surgery, Breast Surgery, Cholecystectomy, Hysterectomy Additional Past Surgical History / Comment(s): Lt Mastectomy W/ RECONSTRUCTION; RT BREAST IMPLANT. SINUS SURG X3., colonoscopy, pain pump implant Past Anesthesia/Blood Transfusion Reactions: Previous Problems w/ Anesthesia Additional Past Anesthesia/Blood Transfusion Reaction / Comm: HX OF DAMAGE TO VOCAL CORDS POST-OP BACK SURGERY Past Psychological History: No Psychological Hx Reported Smoking Status: Never smoker Past Alcohol Use History: None Reported Past Drug Use History: None Reported - Past Family History Father Sister(s) Family Medical History: Cancer Additional Family Medical History / Comment(s): Father had leukemia and sister had pancreatic cancer. Brother(s) Family Medical History: Cancer Additional Family Medical History / Comment(s): Prostate cancer, ANEURYSM Mother History Unknown: Yes Family Medical History: No Reported History Additional Family Medical History / Comment(s): Mother was healthy. Medications and Allergies Home Medications Medication Instructions Recorded Confirmed Type Aspirin EC [Ecotrin Low Dose] 81 mg PO DAILY 04/22/16 11/01/18 History Methocarbamol [Robaxin] 500 mg PO BID PRN 04/22/16 11/01/18 History traMADol HCL [Ultram] 50 mg PO DAILY PRN 04/22/16 11/01/18 History Rosuvastatin Calcium [Crestor] 40 mg PO DAILY 06/02/16 11/01/18 History Levothyroxine Sodium [Synthroid] 75 mcg PO DAILY 11/01/17 11/01/18 History Celecoxib [CeleBREX] 200 mg PO DAILY 06/21/18 11/01/18 History DULoxetine HCL [Cymbalta] 60 mg PO DAILY 06/21/18 11/01/18 History Mirabegron [Myrbetriq] 50 mg PO DAILY 06/21/18 11/01/18 History Montelukast [Singulair] 10 mg PO DAILY 06/21/18 11/01/18 History Valsartan [Diovan] 40 mg PO DAILY 06/21/18 11/01/18 History Nocdurna 27.7 mcg SUBLINGUAL HS 08/20/18 11/01/18 History Ibuprofen [Motrin Ib] 200 mg PO Q6H PRN 09/15/18 11/01/18 History Morphine Pain Pump 1 dose INTRATHECA CONTINUOUS 10/27/18 11/01/18 History Sennosides-Docusate Sodium 2 tab PO BID #120 tablet 10/29/18 11/01/18 Rx [Senokot-S] Insulin Glargine,Hum.rec.anlog 30 unit SQ DAILY #0 11/01/18 11/01/18 Rx [Lantus Solostar] Pantoprazole [Protonix] 40 mg PO BID 30 Days #60 tablet. 11/01/18 11/01/18 Rx Allergies Allergy/AdvReac Type Severity Reaction Status Date / Time neomycin Allergy Itching Verified 11/01/18 17:59 Sulfa (Sulfonamide Allergy Dyspnea Verified 11/01/18 17:59 Antibiotics) sulfamethoxazole Allergy Dyspnea Verified 11/01/18 17:59 [From ] trimethoprim [From ] Allergy Dyspnea Verified 11/01/18 17:59 codeine AdvReac headache Verified 11/01/18 17:59 morphine AdvReac Itching Verified 11/01/18 17:59 Physical Exam Vitals: Vital Signs Temp Pulse Pulse Pulse Resp BP BP 11/02/18 12:12 98.0 F 68 16 124/75 11/02/18 05:09 97.9 F 72 18 133/72 11/01/18 22:44 98.3 F 75 18 166/81 11/01/18 21:30 79 14 152/86 11/01/18 21:00 74 14 152/86 11/01/18 20:30 67 16 149/77 11/01/18 17:16 98.1 F 68 18 163/71 Pulse Ox 11/02/18 12:12 93 L 11/02/18 05:09 92 L 11/01/18 22:44 93 L 11/01/18 21:30 93 L 11/01/18 21:00 94 L 11/01/18 20:30 95 11/01/18 17:16 95 Intake and Output 11/02/18 11/02/18 11/02/18 06:59 14:59 22:59 Intake Total 1420 600 Balance 1420 600 Intake: Intake, IV Titration 1300 600 Amount Magnesium Sulfate-D5w Pmx 200 1 gm In Dextrose/Water 1 100ml.bag @ 100 mls/hr IVPB Q1H [facility] Rx#: [id number] Sodium Chloride 0.9% 1, 600 600 000 ml @ 75 mls/hr IV . [id number] [facility] Rx#:[id number] Sodium Chloride 0.9% 500 500 ml 500 ml @ 999 mls/hr IV .Q31M [facility] Rx#:[id number] Oral 120 Other: Voiding Method Diaper Incontinent # Voids 3 Weight 79.832 kg Skin: Good color, texture, turgor. General: Medium build and comfortable appearance. Head: Normocephalic, atraumatic. Eyes: Symmetric. Pupils equal round. Ears: Symmetric. Hearing within normal limits. Mouth: Clear. Neck: Supple. Carotid without bruit. Cardiac: Regular rate and rhythm. Lungs: Clear anteriorly and posteriorly. Abdomen: Soft active nontender. Extremities: Normal tone. Mild edema noted ankles. Neurological: Mental status: Alert, cooperative, pleasant. Cranial nerves: Symmetric facial tone and trapezius. Motor: Can actively elevates all 4 limbs. Sensation: Intact throughout. DTRs: Symmetric and equal throughout. Mobility: Sits with physical assistance. Results CBC & Chem 7: 11/02/18 08:27 11/02/18 07:59 Labs: Abnormal Lab Results - Last 24 Hours (Table) 11/01/18 11/01/18 11/02/18 Range/Units 19:35 22:52 06:55 Glucose 168 H (74-99) mg/dL POC Glucose (mg/dL) 160 H 104 H (75-99) mg/dL Magnesium 1.3 L (1.6-2.3) mg/dL Albumin 3.1 L (3.5-5.0) g/dL 11/02/18 11/02/18 Range/Units 07:59 11:25 Glucose 108 H (74-99) mg/dL POC Glucose (mg/dL) 189 H (75-99) mg/dL Magnesium (1.6-2.3) mg/dL Albumin 2.9 L (3.5-5.0) g/dL Assessment and Plan (1) Head injury Current Visit: Yes Status: Acute Code(s): S09.90XA - UNSPECIFIED INJURY OF HEAD, INITIAL ENCOUNTER SNOMED Code(s): 60318390 Plan: Impression: 1. Walking difficulty. 2. History of recent fall and hitting had. 3. Syncope. 4. Colitis. 5. Hypertension. 6. Dyslipidemia. 7. Sleep apnea with CPAP. 8. Diabetes. Comments and plan: At this time OT ongoing in PT prescribed. I will add speech therapy for communication and cognition evaluation. We'll consider for inpatient rehab.
[2018-11-02 17:19] LABS: Glucose,Whole Blood 108 mg/dL (75-99)
[2018-11-02 20:27] LABS: Glucose,Whole Blood 166 mg/dL (75-99)
[2018-11-02] MEDS ORDERED: DESMOPRESSIN SUBLINGUAL SCH (21:00)
[2018-11-03] MEDS: traMADol 50 MG TAB PO PRN ×3 (04:38→13:26)
[2018-11-03] MEDS: LEVOTHYROXINE 75 MCG TAB PO SCH (05:40)
[2018-11-03 06:58] LABS: Glucose,Whole Blood 94 mg/dL (75-99)
[2018-11-03] MEDS: INSULIN ASPART (NovoLOG) 100 UNIT/ML VIAL SQ SCH ×2 (07:33→11:57)
[2018-11-03] MEDS: Mirabegron [Myrbetriq] PO SCH (08:44)
[2018-11-03] MEDS: SENNOSIDES-DOCUSATE SODIUM 1 EACH TAB PO SCH (08:50)
[2018-11-03] MEDS: MONTELUKAST 10 MG TAB PO SCH (08:50)
[2018-11-03] MEDS: VALSARTAN 40 MG TAB PO SCH (08:50)
[2018-11-03] MEDS: INSULIN DETEMIR (LEVEMIR) 100 UNIT/ML SYR SQ SCH (08:50)
[2018-11-03] MEDS: PANTOPRAZOLE 40 MG TABLET PO SCH (08:50)
[2018-11-03] MEDS: ATORVASTATIN 80 MG TAB PO SCH (08:50)
[2018-11-03] MEDS: DULoxetine HCL 60 MG CAPSULE.DR PO SCH (08:50)
[2018-11-03] MEDS: MELOXICAM 7.5 MG TAB PO SCH (08:51)
[2018-11-03 09:28] LABS: Basophils % (A) 1 %; Eosinophils # (A) 0.4 k/uL (0-0.7); Eosinophils % (A) 5 %; HCT 36.4 % (34.0-46.0); HGB 11.3 gm/dL (11.4-16.0); Hypochromasia Slight; Lymphocytes # (A) 1.2 k/uL (1.0-4.8); Lymphocytes % (A) 16 %; MCH 27.1 pg (25.0-35.0); MCHC 31.1 g/dL (31.0-37.0); MCV 87.2 fL (80.0-100.0); Mean Platelet Volume 6.9; Monocytes # (A) 0.4 k/uL (0-1.0); Monocytes % (A) 5 %; Neutrophils # (A) 5.8 k/uL (1.3-7.7); Neutrophils % (A) 73 %; Platelet Count 261 k/uL (150-450); RBC 4.18 m/uL (3.80-5.40); RDW 15.4 % (11.5-15.5); WBC 7.9 k/uL (3.8-10.6)
[2018-11-03 09:59] LABS: ALT 24 U/L (9-52); AST 17 U/L (14-36); Albumin 2.9 g/dL (3.5-5.0); Alkaline Phosphatase 72 U/L (38-126); Anion Gap 4 mmol/L; Blood Urea Nitrogen 8 mg/dL (7-17); Calcium 8.6 mg/dL (8.4-10.2); Carbon Dioxide 32 mmol/L (22-30); Chloride 103 mmol/L (98-107); Glucose 197 mg/dL (74-99); Potassium 4.3 mmol/L (3.5-5.1); Sodium 139 mmol/L (137-145); Total Bilirubin 0.5 mg/dL (0.2-1.3); Total Protein 6.2 g/dL (6.3-8.2)
[2018-11-03 11:23] LABS: Glucose,Whole Blood 134 mg/dL (75-99)
[2018-11-03] MEDS: SODIUM CHLORIDE 0.9% 1,000 ML IV SCH (11:53)
[2018-11-03 11:56] VITALS: BP 139/80; PULSE 68; RESP 17; TEMP 97.9
[2018-11-03] MEDS: ACETAMINOPHEN TAB 325 MG TAB PO PRN (11:58)
--- NOTE | 2018-11-03 14:42 | P.DS ---
Providers Date of admission: 11/01/18 21:06 Expected date of discharge: 11/03/18 Attending physician: Lexie Craven Consults: 11/02/18 13:36 Consult Physician Routine Consulting Provider: Johnny Russo Consult Reason/Comments: Increased weakness Do you want consulting provider notified?: Yes Primary care physician: Annelise Rose [facility] Course: Discharge diagnosis 1. Fall due to loss of balance and not using walker. CT of head and C-spine completed showing no acute intracranial abnormality. Large right hospital. No scalp hematoma. Great and change compared to last exam. Spondylitic changes cervical spine. No fracture. No change. Right hip x-ray completed showing no acute abnormality pelvis and right hip. No fracture. Shoulder x-ray completed showing mild spurring otherwise negative left shoulder exam. Physical therapy has been consulted. 2. Chronic back pain. Patient follows with Dr. Lewis, patient has pain pump 3. Diabetes mellitus type 2. Patient currently maintained on Lantus 30 units nightly. Sliding scale coverage has been added 4. History of cholecystectomy 5. History of hypothyroidism 6. History of essential hypertension 7. History of sleep apnea 9. History of GERD 10. hypomagnesium. Initial magnesium level 1.3. Replace per protocol repeat 1.7 Hospital course This is a 68-year-old female patient of Dr. Rose. Patient presented to ER with complaints of a fall. Patient was discharged from hospital yesterday. Patient reports that she felt significantly improved upon discharge so well in fact that she decided to the movies with her . Patient reports that she was getting out of the car and decided to not use her walker due to the short distance she had to walk and fell and hit her head on the cement. Patient reports that she remembers she did not lose consciousness and reports that if she had a walker present she would not have fallen. Patient reports that she did not feel dizzy or lightheaded prior to fall. Patient reports that she just lost her balance. Patient reports that she does usually use her walker regularly but sometimes she does forget or feels that she is able to make a short distance without it. Patient has a past medical history of breast cancer, diabetes mellitus, GERD, hyperlipidemia, hypertension, pneumonia, sleep apnea and chronic pain in which she has a PainPump and managed by Dr. Lewis. CT of brain and C-spine completed showing no acute intracranial abnormality. Large right occipital Scalp hematoma. Brain unchanged compared to last exam. Spondylitic changes in the cervical spine no fracture. No change. X-ray of right hip completed showing no acute abnormality of the pelvis and right hip. No fracture. Shoulder x-ray completed showing mild spurring. Otherwise negative left shoulder exam. EKG completed showing normal sinus rhythm. Possible anterior infarct age undetermined. Patient's magnesium 1.3 on admission replaced. Repeat 1.7. At this time patient is complaining of some soreness to have her she fell. Patient is complaining of pain to right hip. Patient denies chest pain or shortness of breath. Patient denies nausea vomiting or diarrhea. Patient denies any urinary burning or frequency. Physical therapy has been consulted. On 11/03/2018 patient has been accepted at inpatient rehab with Dr. Russo. Patient remains medically stable at this time. Patient denies chest pain or shortness of breath. Patient denies nausea vomiting or diarrhea. Patient denies dizziness or syncopal episodes. Patient denies any urinary burning or frequency. Patient remains alert and oriented 3. I performed an examination of the patient and discussed their management with the Nurse Practitioner. I have reviewed the Nurse Practitioner's notes and agree with the documented findings and plan of care Patient Condition at Discharge: Stable Plan - Discharge Summary Discharge Rx Participant: No New Discharge Prescriptions: New INSULIN ASPART (NovoLOG) [NovoLOG (formulary)] 0 unit SQ ACHS vial Continue Aspirin EC [Ecotrin Low Dose] 81 mg PO DAILY Methocarbamol [Robaxin] 500 mg PO BID PRN PRN Reason: Pain traMADol HCL [Ultram] 50 mg PO DAILY PRN PRN Reason: Pain Rosuvastatin Calcium [Crestor] 40 mg PO DAILY Levothyroxine Sodium [Synthroid] 75 mcg PO DAILY Valsartan [Diovan] 40 mg PO DAILY Celecoxib [CeleBREX] 200 mg PO DAILY Montelukast [Singulair] 10 mg PO DAILY Mirabegron [Myrbetriq] 50 mg PO DAILY DULoxetine HCL [Cymbalta] 60 mg PO DAILY Nocdurna 27.7 mcg SUBLINGUAL HS Ibuprofen [Motrin Ib] 200 mg PO Q6H PRN PRN Reason: Pain Morphine Pain Pump 1 dose INTRATHECA CONTINUOUS Sennosides-Docusate Sodium [Senokot-S] 2 tab PO BID #120 tablet Pantoprazole [Protonix] 40 mg PO BID 30 Days #60 tablet. Insulin Glargine,Hum.rec.anlog [Lantus Solostar] 30 unit SQ DAILY #0 Discharge Medication List Aspirin EC [Ecotrin Low Dose] 81 mg PO DAILY 04/22/16 [History] Methocarbamol [Robaxin] 500 mg PO BID PRN 04/22/16 [History] traMADol HCL [Ultram] 50 mg PO DAILY PRN 04/22/16 [History] Rosuvastatin Calcium [Crestor] 40 mg PO DAILY 06/02/16 [History] Levothyroxine Sodium [Synthroid] 75 mcg PO DAILY 11/01/17 [History] Celecoxib [CeleBREX] 200 mg PO DAILY 06/21/18 [History] DULoxetine HCL [Cymbalta] 60 mg PO DAILY 06/21/18 [History] Mirabegron [Myrbetriq] 50 mg PO DAILY 06/21/18 [History] Montelukast [Singulair] 10 mg PO DAILY 06/21/18 [History] Valsartan [Diovan] 40 mg PO DAILY 06/21/18 [History] Nocdurna 27.7 mcg SUBLINGUAL HS 08/20/18 [History] Ibuprofen [Motrin Ib] 200 mg PO Q6H PRN 09/15/18 [History] Morphine Pain Pump 1 dose INTRATHECA CONTINUOUS 10/27/18 [History] Sennosides-Docusate Sodium [Senokot-S] 2 tab PO BID #120 tablet 10/29/18 [Rx] Insulin Glargine,Hum.rec.anlog [Lantus Solostar] 30 unit SQ DAILY #0 11/01/18 [Rx] Pantoprazole [Protonix] 40 mg PO BID 30 Days #60 tablet. 11/01/18 [Rx] INSULIN ASPART (NovoLOG) [NovoLOG (formulary)] 0 unit SQ ACHS vial 11/03/18 [Rx] Follow up Appointment(s)/Referral(s): Nila Rojas, [NON-STAFF] - As Needed Annelise Rose DO [Primary Care Provider] - 1-2 days Starr Andrade MD [Medical Doctor] - 1 Week Activity/Diet/Wound Care/Special Instructions: Patient being transferred to inpatient rehab at [facility] Diet consistent carb Discharge Disposition: OTHER INSTITUTION NOT DEFINED
== END 2018-11-03 16:10 | DRG 605 ==
LOC: EC 17:03 → 3NMEDONC 21:06
PROVIDERS: ADMIT Internal Medicine; ATTEND Internal Medicine
DX: S00.03XA Contusion of scalp, initial encounter (principal); W18.30XA Fall on same level, unspecified, initial encounter; E03.9 Hypothyroidism, unspecified; E11.9 Type 2 diabetes mellitus without complications; E78.5 Hyperlipidemia, unspecified; E83.42 Hypomagnesemia; G47.33 Obstructive sleep apnea (adult) (pediatric); Z99.89 Dependence on other enabling machines and devices; G89.29 Other chronic pain; I10 Essential (primary) hypertension; K21.9 Gastro-esophageal reflux disease without esophagitis; K52.9 Noninfective gastroenteritis and colitis, unspecified; Z79.4 Long term (current) use of insulin; Z79.82 Long term (current) use of aspirin; Z79.890 Hormone replacement therapy; Z79.899 Other long term (current) drug therapy; Z80.0 Family history of malignant neoplasm of digestive organs; Z80.6 Family history of leukemia; Z82.3 Family history of stroke; Z85.3 Personal history of malignant neoplasm of breast; Z90.12 Acquired absence of left breast and nipple; Z90.49 Acquired absence of other specified parts of digestive tract; Z90.710 Acquired absence of both cervix and uterus; Z98.82 Breast implant status; Z88.1 Allergy status to other antibiotic agents; Z88.5 Allergy status to narcotic agent; Z88.2 Allergy status to sulfonamides; M47.9 Spondylosis, unspecified; Z87.01 Personal history of pneumonia (recurrent); Z87.440 Personal history of urinary (tract) infections; Z80.42 Family history of malignant neoplasm of prostate; R26.2 Difficulty in walking, not elsewhere classified; Z79.891 Long term (current) use of opiate analgesic; R13.10 Dysphagia, unspecified; K59.00 Constipation, unspecified
CPT/HCPCS: 36415; 70450; 72125; 73502; 80053; 83735; 85025; 93005; 99285

== ENCOUNTER 2018-12-06 12:07 | Inpatient (IN) | payer MEDICARE, OTHER ==
[2018-12-06] MEDS ORDERED: ONDANSETRON 4 MG/2 ML VIAL IVP STA (13:51)
--- NOTE | 2018-12-06 13:51 | ED ---
Nausea/Vomiting/Diarrhea HPI - General Chief complaint: Nausea/Vomiting/Diarrhea Stated complaint: vomiting Time Seen by Provider: 12/06/18 13:48 Source: patient, RN notes reviewed, old records reviewed Mode of arrival: ambulatory Limitations: no limitations - History of Present Illness Initial comments: This is a 68-year-old female the ER for evaluation. Patient presents today for evaluation of nausea vomiting. Dysuria and abdominal pain. Patient has no fever. No travel history no sick contacts. Patient states she does cervical chronic pain. Main issue appears to be weakness, dehydration with nausea and vomiting. Dysuria. No recent travel history or sick contacts. MD complaint: nausea, vomiting -: days(s) Description of Vomiting: food contents Associated Abdominal Pain: Yes Location: periumbilical Radiation: none Severity: mild Severity scale (1-10): 2 Quality: aching Consistency: constant Improves with: none Worsens with: none Associated Symptoms: fever/chills, loss of appetite, nausea/vomiting, weakness - Related Data Home Medications Medication Instructions Recorded Confirmed Aspirin EC [Ecotrin Low Dose] 81 mg PO DAILY 04/22/16 12/06/18 Methocarbamol [Robaxin] 500 mg PO BID PRN 04/22/16 12/06/18 traMADol HCL [Ultram] 50 mg PO DAILY PRN 04/22/16 12/06/18 Rosuvastatin Calcium [Crestor] 40 mg PO DAILY 06/02/16 12/06/18 Levothyroxine Sodium [Synthroid] 75 mcg PO DAILY 11/01/17 12/06/18 Celecoxib [CeleBREX] 200 mg PO DAILY 06/21/18 12/06/18 DULoxetine HCL [Cymbalta] 60 mg PO DAILY 06/21/18 12/06/18 Mirabegron [Myrbetriq] 50 mg PO DAILY 06/21/18 12/06/18 Montelukast [Singulair] 10 mg PO DAILY 06/21/18 12/06/18 Valsartan [Diovan] 40 mg PO DAILY 06/21/18 12/06/18 Nocdurna 27.7 mcg SUBLINGUAL HS 08/20/18 12/06/18 Ibuprofen [Motrin Ib] 200 mg PO Q6H PRN 09/15/18 12/06/18 Morphine Pain Pump 1 dose INTRATHECA CONTINUOUS 10/27/18 12/06/18 INSULIN ASPART (NovoLOG) [NovoLOG See Protocol SQ ACHS 12/06/18 12/06/18 (formulary)] Previous Rx's Medication Instructions Recorded Sennosides-Docusate Sodium 2 tab PO BID #120 tablet 10/29/18 [Senokot-S] Insulin Glargine,Hum.rec.anlog 30 unit SQ DAILY #0 11/01/18 [Lantus Solostar] Pantoprazole [Protonix] 40 mg PO BID 30 Days #60 tablet. 11/01/18 Allergies Allergy/AdvReac Type Severity Reaction Status Date / Time neomycin Allergy Itching Verified 12/06/18 13:54 Sulfa (Sulfonamide Allergy Dyspnea Verified 12/06/18 13:54 Antibiotics) sulfamethoxazole Allergy Dyspnea Verified 12/06/18 13:54 [From ] trimethoprim [From ] Allergy Dyspnea Verified 12/06/18 13:54 codeine AdvReac headache Verified 12/06/18 13:54 morphine AdvReac Itching Verified 12/06/18 13:54 Review of Systems ROS Statement: Those systems with pertinent positive or pertinent negative responses have been documented in the HPI. ROS Other: All systems not noted in ROS Statement are negative. Past Medical History Past Medical History: Cancer, Diabetes Mellitus, GERD/Reflux, Hyperlipidemia, Hypertension, Pneumonia, Sleep Apnea/CPAP/BIPAP Additional Past Medical History / Comment(s): Pt recently admitted 08/22/18 with pneumonia/sepsis possible aspiration pne, N/V, UTI, hyperkalemia and constipation. Other Hx: IDDM type II, chronic low back pain radiates to L leg/has pain pump, herniated discs, colitis, black stools, L breast cancer with mastectomy, irregular heart beat once, JANENE with Cpap, dysphagia, hypothyroid, constipation. History of Any Multi-Drug Resistant Organisms: MRSA Date of last positivie culture/infection: 04/02/17 MDRO Source:: URINE Past Surgical History: Back Surgery, Breast Surgery, Cholecystectomy, Hysterectomy Additional Past Surgical History / Comment(s): Lt Mastectomy W/ RECONSTRUCTION; RT BREAST IMPLANT. SINUS SURG X3., colonoscopy, pain pump implant Past Anesthesia/Blood Transfusion Reactions: Previous Problems w/ Anesthesia Additional Past Anesthesia/Blood Transfusion Reaction / Comment(s): HX OF DAMAGE TO VOCAL CORDS POST-OP BACK SURGERY Past Psychological History: No Psychological Hx Reported Smoking Status: Never smoker Past Alcohol Use History: None Reported Past Drug Use History: None Reported - Past Family History Father Sister(s) Family Medical History: Cancer Additional Family Medical History / Comment(s): Father had leukemia and sister had pancreatic cancer. Brother(s) Family Medical History: Cancer Additional Family Medical History / Comment(s): Prostate cancer, ANEURYSM Mother History Unknown: Yes Family Medical History: No Reported History Additional Family Medical History / Comment(s): Mother was healthy. General Exam Limitations: no limitations General appearance: alert, in no apparent distress Head exam: Present: atraumatic, normocephalic, normal inspection Eye exam: Present: normal appearance, PERRL, EOMI. Absent: scleral icterus, conjunctival injection, periorbital swelling ENT exam: Present: normal exam, mucous membranes moist Neck exam: Present: normal inspection. Absent: tenderness, meningismus, lymphadenopathy Respiratory exam: Present: normal lung sounds bilaterally. Absent: respiratory distress, wheezes, rales, rhonchi, stridor Cardiovascular Exam: Present: regular rate, normal rhythm, normal heart sounds. Absent: systolic murmur, diastolic murmur, rubs, gallop, clicks GI/Abdominal exam: Present: soft, normal bowel sounds. Absent: distended, tenderness, guarding, rebound, rigid Extremities exam: Present: normal inspection, full ROM, normal capillary refill. Absent: tenderness, pedal edema, joint swelling, calf tenderness Back exam: Present: normal inspection Neurological exam: Present: alert, oriented X3, CN II-XII intact Psychiatric exam: Present: normal affect, normal mood Skin exam: Present: warm, dry, intact, normal color. Absent: rash Course Vital Signs 12/06/18 12:35 Temperature 98.2 F Pulse Rate 101 H Respiratory 18 Rate Blood Pressure 96/63 O2 Sat by Pulse 94 L Oximetry - Reevaluation(s) Reevaluation #1: 12/06/18 16:51 Medical records reviewed Reevaluation #2: 12/06/18 16:51 Patient is current pain control Medical Decision Making - Medical Decision Making 68 female with intractable nausea vomiting. Patient does have significant urinary tract infection. To be admitted for IV antibiotics - Lab Data Result diagrams: 12/06/18 15:10 12/06/18 15:10 Lab Results 12/06/18 12/06/18 12/06/18 Range/Units 14:30 15:10 15:10 WBC 9.9 (3.8-10.6) k/uL RBC 5.26 (3.80-5.40) m/uL Hgb 14.2 (11.4-16.0) gm/dL Hct 43.9 (34.0-46.0) % MCV 83.6 (80.0-100.0) fL MCH 27.0 (25.0-35.0) pg MCHC 32.3 (31.0-37.0) g/dL RDW 15.8 H (11.5-15.5) % Plt Count 346 (150-450) k/uL Neutrophils % 69 % Lymphocytes % 23 % Monocytes % 5 % Eosinophils % 2 % Basophils % 0 % Neutrophils # 6.8 (1.3-7.7) k/uL Lymphocytes # 2.3 (1.0-4.8) k/uL Monocytes # 0.5 (0-1.0) k/uL Eosinophils # 0.2 (0-0.7) k/uL Basophils # 0.0 (0-0.2) k/uL PT (9.0-12.0) sec INR (<1.2) APTT (22.0-30.0) sec Sodium 138 (137-145) mmol/L Potassium 4.3 (3.5-5.1) mmol/L Chloride 98 (98-107) mmol/L Carbon Dioxide 28 (22-30) mmol/L Anion Gap 12 mmol/L BUN 16 (7-17) mg/dL Creatinine 0.81 (0.52-1.04) mg/dL Est GFR (CKD-EPI)AfAm 88 (>60 ml/min/1.73 sqM) Est GFR (CKD-EPI)NonAf 76 (>60 ml/min/1.73 sqM) Glucose 165 H (74-99) mg/dL Plasma Lactic Acid Adan (0.7-2.0) mmol/L Calcium 9.9 (8.4-10.2) mg/dL Phosphorus 3.3 (2.5-4.5) mg/dL Magnesium 1.7 (1.6-2.3) mg/dL Total Bilirubin 0.5 (0.2-1.3) mg/dL AST 21 (14-36) U/L ALT 22 (9-52) U/L Alkaline Phosphatase 109 (38-126) U/L Troponin I (0.000-0.034) ng/mL NT-Pro-B Natriuret Pep pg/mL Total Protein 8.5 H (6.3-8.2) g/dL Albumin 4.4 (3.5-5.0) g/dL Urine Color Yellow Urine Appearance Turbid H (Clear) Urine pH 5.5 (5.0-8.0) Ur Specific [place] 1.020 (1.001-1.035) Urine Protein 2+ H (Negative) Urine Glucose (UA) Negative (Negative) Urine Ketones Negative (Negative) Urine Blood Small H (Negative) Urine Nitrite Negative (Negative) Urine Bilirubin Negative (Negative) Urine Urobilinogen 2.0 (<2.0) mg/dL Ur Leukocyte Esterase Large H (Negative) Urine WBC >182 H (0-5) /hpf Urine WBC Clumps Many H (None) /hpf Urine Bacteria Many H (None) /hpf Hyaline Casts 73 H (0-2) /lpf Urine Mucus Many H (None) /hpf 12/06/18 12/06/18 12/06/18 Range/Units 15:10 15:10 15:10 WBC (3.8-10.6) k/uL RBC (3.80-5.40) m/uL Hgb (11.4-16.0) gm/dL Hct (34.0-46.0) % MCV (80.0-100.0) fL MCH (25.0-35.0) pg MCHC (31.0-37.0) g/dL RDW (11.5-15.5) % Plt Count (150-450) k/uL Neutrophils % % Lymphocytes % % Monocytes % % Eosinophils % % Basophils % % Neutrophils # (1.3-7.7) k/uL Lymphocytes # (1.0-4.8) k/uL Monocytes # (0-1.0) k/uL Eosinophils # (0-0.7) k/uL Basophils # (0-0.2) k/uL PT 11.1 (9.0-12.0) sec INR 1.0 (<1.2) APTT 24.8 (22.0-30.0) sec Sodium (137-145) mmol/L Potassium (3.5-5.1) mmol/L Chloride (98-107) mmol/L Carbon Dioxide (22-30) mmol/L Anion Gap mmol/L BUN (7-17) mg/dL Creatinine (0.52-1.04) mg/dL Est GFR (CKD-EPI)AfAm (>60 ml/min/1.73 sqM) Est GFR (CKD-EPI)NonAf (>60 ml/min/1.73 sqM) Glucose (74-99) mg/dL Plasma Lactic Acid Adan 1.6 (0.7-2.0) mmol/L Calcium (8.4-10.2) mg/dL Phosphorus (2.5-4.5) mg/dL Magnesium (1.6-2.3) mg/dL Total Bilirubin (0.2-1.3) mg/dL AST (14-36) U/L ALT (9-52) U/L Alkaline Phosphatase (38-126) U/L Troponin I (0.000-0.034) ng/mL NT-Pro-B Natriuret Pep 178 pg/mL Total Protein (6.3-8.2) g/dL Albumin (3.5-5.0) g/dL Urine Color Urine Appearance (Clear) Urine pH (5.0-8.0) Ur Specific [place] (1.001-1.035) Urine Protein (Negative) Urine Glucose (UA) (Negative) Urine Ketones (Negative) Urine Blood (Negative) Urine Nitrite (Negative) Urine Bilirubin (Negative) Urine Urobilinogen (<2.0) mg/dL Ur Leukocyte Esterase (Negative) Urine WBC (0-5) /hpf Urine WBC Clumps (None) /hpf Urine Bacteria (None) /hpf Hyaline Casts (0-2) /lpf Urine Mucus (None) /hpf 12/06/18 Range/Units 15:10 WBC (3.8-10.6) k/uL RBC (3.80-5.40) m/uL Hgb (11.4-16.0) gm/dL Hct (34.0-46.0) % MCV (80.0-100.0) fL MCH (25.0-35.0) pg MCHC (31.0-37.0) g/dL RDW (11.5-15.5) % Plt Count (150-450) k/uL Neutrophils % % Lymphocytes % % Monocytes % % Eosinophils % % Basophils % % Neutrophils # (1.3-7.7) k/uL Lymphocytes # (1.0-4.8) k/uL Monocytes # (0-1.0) k/uL Eosinophils # (0-0.7) k/uL Basophils # (0-0.2) k/uL PT (9.0-12.0) sec INR (<1.2) APTT (22.0-30.0) sec Sodium (137-145) mmol/L Potassium (3.5-5.1) mmol/L Chloride (98-107) mmol/L Carbon Dioxide (22-30) mmol/L Anion Gap mmol/L BUN (7-17) mg/dL Creatinine (0.52-1.04) mg/dL Est GFR (CKD-EPI)AfAm (>60 ml/min/1.73 sqM) Est GFR (CKD-EPI)NonAf (>60 ml/min/1.73 sqM) Glucose (74-99) mg/dL Plasma Lactic Acid Adan (0.7-2.0) mmol/L Calcium (8.4-10.2) mg/dL Phosphorus (2.5-4.5) mg/dL Magnesium (1.6-2.3) mg/dL Total Bilirubin (0.2-1.3) mg/dL AST (14-36) U/L ALT (9-52) U/L Alkaline Phosphatase (38-126) U/L Troponin I <0.012 (0.000-0.034) ng/mL NT-Pro-B Natriuret Pep pg/mL Total Protein (6.3-8.2) g/dL Albumin (3.5-5.0) g/dL Urine Color Urine Appearance (Clear) Urine pH (5.0-8.0) Ur Specific [place] (1.001-1.035) Urine Protein (Negative) Urine Glucose (UA) (Negative) Urine Ketones (Negative) Urine Blood (Negative) Urine Nitrite (Negative) Urine Bilirubin (Negative) Urine Urobilinogen (<2.0) mg/dL Ur Leukocyte Esterase (Negative) Urine WBC (0-5) /hpf Urine WBC Clumps (None) /hpf Urine Bacteria (None) /hpf Hyaline Casts (0-2) /lpf Urine Mucus (None) /hpf - EKG Data -: EKG Interpreted by Me (EKG shows sinus rate of 60, MD 160, QRS 86, QTc 476) Disposition Clinical Impression: Nausea & vomiting, UTI (urinary tract infection) Disposition: ADMITTED IP TO THIS HOSP Condition: Good Is patient prescribed a controlled substance at d/c from ED?: No
[2018-12-06] MEDS: SODIUM CHLORIDE 0.9% 1,000 ML IV STA ×2 (14:45→15:16)
[2018-12-06 14:48] LABS: Appearance,Urine Turbid (Clear); Bacteria,Urine Many /hpf; Bilirubin,Urine Negative (Negative); Blood,Urine Small (Negative); Color,Urine Yellow; Glucose,Urine (UA) Negative (Negative); Hyaline Casts,Urine 73 /lpf (0-2); Ketones,Urine Negative (Negative); Leukocyte Esterase,Urine Large (Negative); Mucus,Urine Many /hpf; Nitrite,Urine Negative (Negative); PH, Urine 5.5 (5.0-8.0); Protein,Urine 2+ (Negative); WBC,Urine >182 /hpf (0-5)
[2018-12-06] MEDS ORDERED: HYDROmorphone 1 MG/ML 1 ML SYRINGE IVP STA (14:59)
[2018-12-06] MEDS ORDERED: ONDANSETRON 4 MG/2 ML VIAL IVP PRN (14:59)
[2018-12-06 15:25] LABS: Basophils % (A) 0 %; Eosinophils # (A) 0.2 k/uL (0-0.7); Eosinophils % (A) 2 %; HCT 43.9 % (34.0-46.0); HGB 14.2 gm/dL (11.4-16.0); Lymphocytes # (A) 2.3 k/uL (1.0-4.8); Lymphocytes % (A) 23 %; MCHC 32.3 g/dL (31.0-37.0); MCV 83.6 fL (80.0-100.0); Mean Platelet Volume 6.9; Monocytes # (A) 0.5 k/uL (0-1.0); Monocytes % (A) 5 %; Neutrophils # (A) 6.8 k/uL (1.3-7.7); Neutrophils % (A) 69 %; Platelet Count 346 k/uL (150-450); RBC 5.26 m/uL (3.80-5.40); RDW 15.8 % (11.5-15.5); WBC 9.9 k/uL (3.8-10.6)
[2018-12-06 15:35] LABS: Albumin 4.4 g/dL (3.5-5.0); Calcium 9.9 mg/dL (8.4-10.2); Magnesium 1.7 mg/dL (1.6-2.3); Phosphorus 3.3 mg/dL (2.5-4.5); Potassium 4.3 mmol/L (3.5-5.1); Total Bilirubin 0.5 mg/dL (0.2-1.3); Total Protein 8.5 g/dL (6.3-8.2)
[2018-12-06] MEDS ORDERED: SODIUM CHLORIDE 0.9% 1,000 ML IV ONE (15:37)
[2018-12-06 15:41] LABS: Partial Thromboplastin Time 24.8 sec (22.0-30.0); Prothrombin Time 11.1 sec (9.0-12.0)
[2018-12-06] MEDS ORDERED: diphenhydrAMINE 50 MG/ML 1 ML VIAL IVP STA (16:24)
[2018-12-06] MEDS: HYDROmorphone 1 MG/ML 1 ML SYRINGE IVP PRN (19:35)
[2018-12-06 21:02] LABS: Glucose,Whole Blood 175 mg/dL (75-99)
[2018-12-06] MEDS: INSULIN ASPART (NovoLOG) 100 UNIT/ML VIAL SQ SCH (21:13)
[2018-12-06] MEDS: PANTOPRAZOLE 40 MG TABLET PO SCH (21:13)
[2018-12-06] MEDS: SENNOSIDES-DOCUSATE SODIUM 1 EACH TAB PO SCH (21:13)
[2018-12-06] MEDS: INSULIN DETEMIR (LEVEMIR) 100 UNIT/ML SYR SQ SCH (21:53)
[2018-12-07] MEDS: LEVOTHYROXINE 75 MCG TAB PO SCH (05:27)
[2018-12-07] MEDS: HYDROmorphone 1 MG/ML 1 ML SYRINGE IVP PRN ×2 (05:27→14:39)
[2018-12-07 07:26] LABS: Glucose,Whole Blood 141 mg/dL (75-99)
[2018-12-07] MEDS: INSULIN DETEMIR (LEVEMIR) 100 UNIT/ML SYR SQ SCH (08:52)
[2018-12-07] MEDS: INSULIN ASPART (NovoLOG) 100 UNIT/ML VIAL SQ SCH ×4 (08:52→21:05)
[2018-12-07] MEDS: MONTELUKAST 10 MG TAB PO SCH (08:53)
[2018-12-07] MEDS: MELOXICAM 7.5 MG TAB PO SCH (08:53)
[2018-12-07] MEDS: SENNOSIDES-DOCUSATE SODIUM 1 EACH TAB PO SCH ×2 (08:53→21:05)
[2018-12-07] MEDS: ASPIRIN 81 MG PO SCH (08:53)
[2018-12-07] MEDS: DULoxetine HCL 60 MG CAPSULE.DR PO SCH (08:53)
[2018-12-07] MEDS: ATORVASTATIN 80 MG TAB PO SCH (08:53)
[2018-12-07] MEDS: PANTOPRAZOLE 40 MG TABLET PO SCH (08:53)
[2018-12-07] MEDS: VALSARTAN 40 MG TAB PO SCH (08:54)
[2018-12-07] MEDS: traMADol 50 MG TAB PO PRN (09:18)
[2018-12-07 09:44] LABS: Anisocytosis Slight; Basophils % (A) 1 %; Eosinophils # (A) 0.2 k/uL (0-0.7); Eosinophils % (A) 2 %; HCT 44.2 % (34.0-46.0); HGB 13.9 gm/dL (11.4-16.0); Hypochromasia Slight; Lymphocytes # (A) 2.8 k/uL (1.0-4.8); Lymphocytes % (A) 40 %; MCH 27.1 pg (25.0-35.0); MCHC 31.3 g/dL (31.0-37.0); MCV 86.5 fL (80.0-100.0); Monocytes # (A) 0.4 k/uL (0-1.0); Monocytes % (A) 5 %; Neutrophils # (A) 3.6 k/uL (1.3-7.7); Neutrophils % (A) 51 %; Platelet Count 297 k/uL (150-450); RBC 5.11 m/uL (3.80-5.40); RDW 16.1 % (11.5-15.5); WBC 7.1 k/uL (3.8-10.6)
[2018-12-07 10:02] LABS: ALT 20 U/L (9-52); AST 26 U/L (14-36); Albumin 4.1 g/dL (3.5-5.0); Alkaline Phosphatase 91 U/L (38-126); Anion Gap 11 mmol/L; Blood Urea Nitrogen 10 mg/dL (7-17); Calcium 9.4 mg/dL (8.4-10.2); Carbon Dioxide 22 mmol/L (22-30); Chloride 109 mmol/L (98-107); Glucose 129 mg/dL (74-99); Potassium 4.6 mmol/L (3.5-5.1); Sodium 142 mmol/L (137-145); Total Bilirubin 0.6 mg/dL (0.2-1.3); Total Protein 8.1 g/dL (6.3-8.2)
--- NOTE | 2018-12-07 10:52 | P.HPIM ---
History of Present Illness H&P Date: 12/07/18 This is a 68-year-old female patient of Dr. Rose. Patient presented with nausea vomiting and weakness. Patient reports that her urine was foul-smelling and thick. Patient denies any fevers at home. Patient does have a past medical history of breast cancer with left mastectomy, diabetes mellitus, GERD, hyperlipidemia, hypertension, pneumonia, sleep apnea, chronic pain in which she is on PainPump and cholecystectomy. Patient was recently admitted for fall and discharged to inpatient rehab. Patient reports that she went home and was doing well up until yesterday. UA was positive for leukocyte esterase. Urine culture has been ordered. Patient has been started on Rocephin for UTI. At this time patient is resting comfortably in bed. Patient reports she feels improved from yesterday. Patient denies chest pain or shortness breath. Patient reports she does not have any nausea or vomiting at this time. Patient is reporting urinary frequency. Review of Systems Please refer to HPI otherwise unremarkable Past Medical History Past Medical History: Cancer, Diabetes Mellitus, GERD/Reflux, Hyperlipidemia, Hypertension, Pneumonia, Sleep Apnea/CPAP/BIPAP Additional Past Medical History / Comment(s): Pt recently admitted 08/22/18 with pneumonia/sepsis possible aspiration pne, N/V, UTI, hyperkalemia and constipation. Other Hx: IDDM type II, chronic low back pain radiates to L leg/has pain pump, herniated discs, colitis, black stools, L breast cancer with mastectomy, irregular heart beat once, JANENE with Cpap, dysphagia, hypothyroid, constipation. History of Any Multi-Drug Resistant Organisms: MRSA Date of last positivie culture/infection: 04/02/17 MDRO Source:: URINE Past Surgical History: Back Surgery, Breast Surgery, Cholecystectomy, Hysterectomy Additional Past Surgical History / Comment(s): Lt Mastectomy W/ RECONSTRUCTION; RT BREAST IMPLANT. SINUS SURG X3., colonoscopy, pain pump implant Past Anesthesia/Blood Transfusion Reactions: Previous Problems w/ Anesthesia Additional Past Anesthesia/Blood Transfusion Reaction / Comment(s): HX OF DAMAGE TO VOCAL CORDS POST-OP BACK SURGERY Past Psychological History: No Psychological Hx Reported Additional Psychological History / Comment(s): Pt resides with her spouse. She uses a cane or walker to ambulate. She has a pain pump d/t back pain. She has a glucometer. She recently established with [facility]. Smoking Status: Never smoker Past Alcohol Use History: None Reported Past Drug Use History: None Reported - Past Family History Father Sister(s) Family Medical History: Cancer Additional Family Medical History / Comment(s): Father had leukemia and sister had pancreatic cancer. Brother(s) Family Medical History: Cancer Additional Family Medical History / Comment(s): Prostate cancer, ANEURYSM Mother History Unknown: Yes Family Medical History: No Reported History Additional Family Medical History / Comment(s): Mother was healthy. Medications and Allergies Home Medications Medication Instructions Recorded Confirmed Type Aspirin EC [Ecotrin Low Dose] 81 mg PO DAILY 04/22/16 12/06/18 History Methocarbamol [Robaxin] 500 mg PO BID PRN 04/22/16 12/06/18 History traMADol HCL [Ultram] 50 mg PO DAILY PRN 04/22/16 12/06/18 History Rosuvastatin Calcium [Crestor] 40 mg PO DAILY 06/02/16 12/06/18 History Levothyroxine Sodium [Synthroid] 75 mcg PO DAILY 11/01/17 12/06/18 History Celecoxib [CeleBREX] 200 mg PO DAILY 06/21/18 12/06/18 History DULoxetine HCL [Cymbalta] 60 mg PO DAILY 06/21/18 12/06/18 History Mirabegron [Myrbetriq] 50 mg PO DAILY 06/21/18 12/06/18 History Montelukast [Singulair] 10 mg PO DAILY 06/21/18 12/06/18 History Valsartan [Diovan] 40 mg PO DAILY 06/21/18 12/06/18 History Nocdurna 27.7 mcg SUBLINGUAL HS 08/20/18 12/06/18 History Ibuprofen [Motrin Ib] 200 mg PO Q6H PRN 09/15/18 12/06/18 History Morphine Pain Pump 1 dose INTRATHECA CONTINUOUS 10/27/18 12/06/18 History Sennosides-Docusate Sodium 2 tab PO BID #120 tablet 10/29/18 12/06/18 Rx [Senokot-S] Insulin Glargine,Hum.rec.anlog 30 unit SQ DAILY #0 11/01/18 12/06/18 Rx [Lantus Solostar] Pantoprazole [Protonix] 40 mg PO BID 30 Days #60 tablet. 11/01/18 12/06/18 Rx INSULIN ASPART (NovoLOG) [NovoLOG See Protocol SQ ACHS 12/06/18 12/06/18 History (formulary)] Allergies Allergy/AdvReac Type Severity Reaction Status Date / Time neomycin Allergy Itching Verified 12/06/18 13:54 Sulfa (Sulfonamide Allergy Dyspnea Verified 12/06/18 13:54 Antibiotics) sulfamethoxazole Allergy Dyspnea Verified 12/06/18 13:54 [From ] trimethoprim [From ] Allergy Dyspnea Verified 12/06/18 13:54 codeine AdvReac headache Verified 12/06/18 13:54 morphine AdvReac Itching Verified 12/06/18 13:54 Physical Exam Vitals: Vital Signs Temp Pulse Pulse Resp BP BP Pulse Ox 12/07/18 07:24 97.8 F 72 16 102/63 90 L 12/07/18 01:40 97.8 F 76 16 95/57 91 L 12/06/18 19:10 97.7 F 75 16 109/70 95 12/06/18 18:46 98.2 F 78 17 111/69 95 12/06/18 17:54 98.2 F 80 18 105/50 94 L 12/06/18 16:30 102 H 18 111/55 92 L 12/06/18 12:35 98.2 F 101 H 18 96/63 94 L Intake and Output 12/06/18 12/07/18 12/07/18 22:59 06:59 14:59 Intake Total 300 Balance 300 Intake: Intake, IV Titration 300 Amount Sodium Chloride 0.9% 1, 300 000 ml @ 100 mls/hr IV . Q10H ONE Rx#:[id number] Other: Voiding Method Toilet # Voids 1 Head normocephalic Neck supple Lungs clear to auscultation bilaterally no wheezing or crackles Heart regular rate and rhythm S1-S2, no rub or gallop Abdomen is soft nontender nondistended positive bowel sounds no hepatosplenomegaly Extremities no edema Neuro alert and orientated to 3 Results CBC & Chem 7: 12/07/18 09:28 12/07/18 09:28 Labs: Abnormal Lab Results - Last 24 Hours (Table) 12/06/18 12/06/18 12/06/18 Range/Units 14:30 15:10 15:10 RDW 15.8 H (11.5-15.5) % Chloride (98-107) mmol/L Glucose 165 H (74-99) mg/dL POC Glucose (mg/dL) (75-99) mg/dL Total Protein 8.5 H (6.3-8.2) g/dL Urine Appearance Turbid H (Clear) Urine Protein 2+ H (Negative) Urine Blood Small H (Negative) Ur Leukocyte Esterase Large H (Negative) Urine WBC >182 H (0-5) /hpf Urine WBC Clumps Many H (None) /hpf Urine Bacteria Many H (None) /hpf Hyaline Casts 73 H (0-2) /lpf Urine Mucus Many H (None) /hpf 12/06/18 12/07/18 12/07/18 Range/Units 21:01 07:23 09:28 RDW 16.1 H (11.5-15.5) % Chloride (98-107) mmol/L Glucose (74-99) mg/dL POC Glucose (mg/dL) 175 H 141 H (75-99) mg/dL Total Protein (6.3-8.2) g/dL Urine Appearance (Clear) Urine Protein (Negative) Urine Blood (Negative) Ur Leukocyte Esterase (Negative) Urine WBC (0-5) /hpf Urine WBC Clumps (None) /hpf Urine Bacteria (None) /hpf Hyaline Casts (0-2) /lpf Urine Mucus (None) /hpf 12/07/18 Range/Units 09:28 RDW (11.5-15.5) % Chloride 109 H (98-107) mmol/L Glucose 129 H (74-99) mg/dL POC Glucose (mg/dL) (75-99) mg/dL Total Protein (6.3-8.2) g/dL Urine Appearance (Clear) Urine Protein (Negative) Urine Blood (Negative) Ur Leukocyte Esterase (Negative) Urine WBC (0-5) /hpf Urine WBC Clumps (None) /hpf Urine Bacteria (None) /hpf Hyaline Casts (0-2) /lpf Urine Mucus (None) /hpf Thrombosis Risk Factor Assmnt - Choose All That Apply Each Factor Represents 1 point: Obesity (BMI >25) Other Risk Factors: Yes Each Risk Factor Represents 2 Points: Age 61-74 years Thrombosis Risk Factor Assessment Total Risk Factor Score: 3 Thrombosis Risk Factor Assessment Level: Moderate Risk Assessment and Plan Assessment: 1. Increased weakness due to urinary tract infection. Urine culture ordered. Patient started on Rocephin 2. Chronic back pain. Patient does have pain pump follows with Dr. Lewis 3. History of cholecystectomy 4. Diabetes mellitus type 2. Patient maintained on Lantus 30 units nightly plus sliding scale coverage 5. History of hypothyroidism 6. History of essential hypertension 7. History of sleep apnea 8. History of GERD 9. History of falls. Patient was recently discharged to inpatient rehab. DVT prophylaxis Lovenox. GI prophylaxis Protonix Time with Patient: Greater than 30 (Greater than 60% of the total time spent in counseling and coordination of care.I performed an examination of the patient and discussed their management with the Nurse Practitioner. I have reviewed the Nurse Practitioner's notes and agree with the documented findings and plan of care)
[2018-12-07] MEDS: PATIENT'S OWN MED (Mirabegron [Myrbetriq] 50 MG) PO SCH (11:59)
[2018-12-07 12:05] LABS: Glucose,Whole Blood 222 mg/dL (75-99)
[2018-12-07] MEDS: ENOXAPARIN 40 MG/0.4 ML SYRINGE SQ SCH (12:38)
[2018-12-07] MEDS ORDERED: PROCHLORPERAZINE 5 MG TAB PO PRN (13:15)
[2018-12-07] MEDS: diphenhydrAMINE 25 MG CAP PO PRN (16:05)
--- NOTE | 2018-12-07 16:57 | US ---
EXAMINATION TYPE: US kidneys/renal and bladder DATE OF EXAM: 12/07/2018 COMPARISON: NONE CLINICAL HISTORY: 68-year-old female r/o kidney stones; recurrent UTI per patient; bilateral flank pa in TECHNIQUE: Multiple sonographic images of the kidneys and bladder are obtained. FINDINGS: Right Kidney: 10..9 x 4.4 x 3.7 cm Left Kidney: 10.4 x 5.6 x 4.6 cm Right Kidney: No hydronephrosis. Prominent Column of Estiven noted mid pole Left Kidney: No hydronephrosis. Prominent Column of Estiven noted mid pole Bladder: Partial distention of the bladder limits its evaluation. Bilateral Jets seen: yes Post Void Residual Volume: not assessed in this inpatient IMPRESSION: No evidence for hydronephrosis. No obvious sizable shadowing renal calculi are seen. However, note that ultrasound has limited sensit ivity for smaller calculi.
[2018-12-07 17:01] LABS: Glucose,Whole Blood 105 mg/dL (75-99)
[2018-12-07 20:56] LABS: Glucose,Whole Blood 144 mg/dL (75-99)
[2018-12-07] MEDS: PANTOPRAZOLE 40 MG/10 ML VIAL IVP SCH (21:05)
[2018-12-08] MEDS: LEVOTHYROXINE 75 MCG TAB PO SCH (05:35)
[2018-12-08 07:18] LABS: Glucose,Whole Blood 141 mg/dL (75-99)
[2018-12-08 07:57] LABS: ALT 18 U/L (9-52); AST 13 U/L (14-36); Albumin 2.8 g/dL (3.5-5.0); Alkaline Phosphatase 73 U/L (38-126); Anion Gap 6 mmol/L; Blood Urea Nitrogen 10 mg/dL (7-17); Calcium 8.5 mg/dL (8.4-10.2); Carbon Dioxide 23 mmol/L (22-30); Chloride 111 mmol/L (98-107); Glucose 136 mg/dL (74-99); Potassium 4.2 mmol/L (3.5-5.1); Sodium 140 mmol/L (137-145); Total Bilirubin 0.1 mg/dL (0.2-1.3); Total Protein 5.7 g/dL (6.3-8.2)
[2018-12-08 08:09] LABS: Anisocytosis Slight; Basophils % (A) 1 %; Eosinophils # (A) 0.2 k/uL (0-0.7); Eosinophils % (A) 4 %; HCT 33.9 % (34.0-46.0); Hypochromasia Moderate; Lymphocytes # (A) 1.9 k/uL (1.0-4.8); Lymphocytes % (A) 38 %; MCH 27.5 pg (25.0-35.0); MCHC 31.5 g/dL (31.0-37.0); MCV 87.1 fL (80.0-100.0); Monocytes # (A) 0.3 k/uL (0-1.0); Monocytes % (A) 6 %; Neutrophils # (A) 2.5 k/uL (1.3-7.7); Neutrophils % (A) 50 %; Platelet Count 223 k/uL (150-450); RBC 3.89 m/uL (3.80-5.40); RDW 16.1 % (11.5-15.5); WBC 5.1 k/uL (3.8-10.6)
[2018-12-08 08:11] LABS: HGB 10.7 gm/dL (11.4-16.0)
[2018-12-08] MEDS: ENOXAPARIN 40 MG/0.4 ML SYRINGE SQ SCH (09:37)
[2018-12-08] MEDS: INSULIN DETEMIR (LEVEMIR) 100 UNIT/ML SYR SQ SCH (09:37)
[2018-12-08] MEDS: INSULIN ASPART (NovoLOG) 100 UNIT/ML VIAL SQ SCH ×4 (09:37→20:41)
[2018-12-08] MEDS: ASPIRIN 81 MG PO SCH (09:38)
[2018-12-08] MEDS: MONTELUKAST 10 MG TAB PO SCH (09:38)
[2018-12-08] MEDS: VALSARTAN 40 MG TAB PO SCH (09:38)
[2018-12-08] MEDS: SENNOSIDES-DOCUSATE SODIUM 1 EACH TAB PO SCH ×2 (09:38→20:55)
[2018-12-08] MEDS: MELOXICAM 7.5 MG TAB PO SCH (09:38)
[2018-12-08] MEDS: DULoxetine HCL 60 MG CAPSULE.DR PO SCH (09:38)
[2018-12-08] MEDS: ATORVASTATIN 80 MG TAB PO SCH (09:38)
[2018-12-08] MEDS: PANTOPRAZOLE 40 MG/10 ML VIAL IVP SCH ×2 (09:39→20:54)
[2018-12-08] MEDS: traMADol 50 MG TAB PO PRN (09:52)
[2018-12-08 11:30] LABS: Glucose,Whole Blood 136 mg/dL (75-99)
[2018-12-08] MEDS: PATIENT'S OWN MED (Mirabegron [Myrbetriq] 50 MG) PO SCH (12:09)
[2018-12-08] MEDS: diphenhydrAMINE 25 MG CAP PO PRN (12:14)
[2018-12-08 12:32] LABS: Basophils % (A) 0 %; Eosinophils # (A) 0.2 k/uL (0-0.7); Eosinophils % (A) 4 %; HCT 35.6 % (34.0-46.0); HGB 11.1 gm/dL (11.4-16.0); Hypochromasia Moderate; Lymphocytes # (A) 2.1 k/uL (1.0-4.8); Lymphocytes % (A) 35 %; MCH 26.9 pg (25.0-35.0); MCHC 31.1 g/dL (31.0-37.0); MCV 86.8 fL (80.0-100.0); Mean Platelet Volume 6.8; Monocytes # (A) 0.4 k/uL (0-1.0); Monocytes % (A) 7 %; Neutrophils # (A) 3.1 k/uL (1.3-7.7); Neutrophils % (A) 53 %; Platelet Count 201 k/uL (150-450); RDW 15.9 % (11.5-15.5); WBC 5.9 k/uL (3.8-10.6)
--- NOTE | 2018-12-08 12:38 | P.PAINCN ---
History of Present Illness - Reason for Consult Consult date: 12/08/18 Intrathecal pump, intractable pain - Chief Complaint Low back pain and hip pain - History of Present Illness This a 68-year-old woman with a long-standing history of intractable low back pain. She does have an implanted intrathecal pump which is managed by another physician. She called his office and he was out of town so she was instructed to come to the hospital. She was discovered to have a urinary tract infection. She does complain of bilateral intractable hip pain and low back pain. She also has pain down her legs. Review of Systems Constitutional: Reports as per HPI Past Medical History Past Medical History: Cancer, Diabetes Mellitus, GERD/Reflux, Hyperlipidemia, Hypertension, Pneumonia, Sleep Apnea/CPAP/BIPAP Additional Past Medical History / Comment(s): Pt recently admitted 08/22/18 with pneumonia/sepsis possible aspiration pne, N/V, UTI, hyperkalemia and constipation. Other Hx: IDDM type II, chronic low back pain radiates to L leg/has pain pump, herniated discs, colitis, black stools, L breast cancer with mastectomy, irregular heart beat once, JANENE with Cpap, dysphagia, hypothyroid, constipation. History of Any Multi-Drug Resistant Organisms: MRSA Year Discovered:: 04/02/17 MDRO Source:: URINE Past Surgical History: Back Surgery, Breast Surgery, Cholecystectomy, Hysterectomy Additional Past Surgical History / Comment(s): Lt Mastectomy W/ RECONSTRUCTION; RT BREAST IMPLANT. SINUS SURG X3., colonoscopy, pain pump implant Past Anesthesia/Blood Transfusion Reactions: Previous Problems w/ Anesthesia Additional Past Anesthesia/Blood Transfusion Reaction / Comm: HX OF DAMAGE TO VOCAL CORDS POST-OP BACK SURGERY Past Psychological History: No Psychological Hx Reported Additional Psychological History / Comment(s): Pt resides with her spouse. She uses a cane or walker to ambulate. She has a pain pump d/t back pain. She has a glucometer. She recently established with [facility]. Smoking Status: Never smoker Past Alcohol Use History: None Reported Past Drug Use History: None Reported - Past Family History Father Sister(s) Family Medical History: Cancer Additional Family Medical History / Comment(s): Father had leukemia and sister had pancreatic cancer. Brother(s) Family Medical History: Cancer Additional Family Medical History / Comment(s): Prostate cancer, ANEURYSM Mother History Unknown: Yes Family Medical History: No Reported History Additional Family Medical History / Comment(s): Mother was healthy. Medications and Allergies Home Medications Medication Instructions Recorded Confirmed Type Aspirin EC [Ecotrin Low Dose] 81 mg PO DAILY 04/22/16 12/06/18 History Methocarbamol [Robaxin] 500 mg PO BID PRN 04/22/16 12/06/18 History traMADol HCL [Ultram] 50 mg PO DAILY PRN 04/22/16 12/06/18 History Rosuvastatin Calcium [Crestor] 40 mg PO DAILY 06/02/16 12/06/18 History Levothyroxine Sodium [Synthroid] 75 mcg PO DAILY 11/01/17 12/06/18 History Celecoxib [CeleBREX] 200 mg PO DAILY 06/21/18 12/06/18 History DULoxetine HCL [Cymbalta] 60 mg PO DAILY 06/21/18 12/06/18 History Mirabegron [Myrbetriq] 50 mg PO DAILY 06/21/18 12/06/18 History Montelukast [Singulair] 10 mg PO DAILY 06/21/18 12/06/18 History Valsartan [Diovan] 40 mg PO DAILY 06/21/18 12/06/18 History Nocdurna 27.7 mcg SUBLINGUAL HS 08/20/18 12/06/18 History Ibuprofen [Motrin Ib] 200 mg PO Q6H PRN 09/15/18 12/06/18 History Morphine Pain Pump 1 dose INTRATHECA CONTINUOUS 10/27/18 12/06/18 History Sennosides-Docusate Sodium 2 tab PO BID #120 tablet 10/29/18 12/06/18 Rx [Senokot-S] Insulin Glargine,Hum.rec.anlog 30 unit SQ DAILY #0 11/01/18 12/06/18 Rx [Lantus Solostar] Pantoprazole [Protonix] 40 mg PO BID 30 Days #60 tablet. 11/01/18 12/06/18 Rx INSULIN ASPART (NovoLOG) [NovoLOG See Protocol SQ ACHS 12/06/18 12/06/18 History (formulary)] Allergies Allergy/AdvReac Type Severity Reaction Status Date / Time neomycin Allergy Itching Verified 12/06/18 13:54 Sulfa (Sulfonamide Allergy Dyspnea Verified 12/06/18 13:54 Antibiotics) sulfamethoxazole Allergy Dyspnea Verified 12/06/18 13:54 [From ] trimethoprim [From ] Allergy Dyspnea Verified 12/06/18 13:54 codeine AdvReac headache Verified 12/06/18 13:54 morphine AdvReac Itching Verified 12/06/18 13:54 Physical Exam Vitals: Vital Signs Temp Pulse Resp BP Pulse Ox 12/08/18 08:02 97.9 F 65 128/61 96 12/08/18 01:12 97.9 F 82 17 93/54 91 L 12/07/18 19:17 98.5 F 69 16 94/55 91 L 12/07/18 14:47 98.2 F 83 15 92/54 90 L Intake and Output 12/07/18 12/08/18 12/08/18 22:59 06:59 14:59 Intake Total 530 Balance 530 Intake: Intake, IV Titration 350 Amount Sodium Chloride 0.9% 1, 350 000 ml @ 100 mls/hr IV . Q10H ONE Rx#:[id number] Oral 180 Other: Voiding Method Toilet # Voids 1 2 General: The patient is alert and oriented. Patient is not sedated Patient answers all question appropriately. Cardiac: Heart is regular in rate and rhythm Respiratory: Clear to auscultation. No audible wheezes. Abdomen: Soft nontender nondistended. Musculoskeletal: Strength is normal bilaterally. Sensation is normal bilaterally. Straight leg raise is negative bilaterally. She walks with antalgic gait. She has no obvious focal motor deficits. She is tender to palpation over her low back at the lumbosacral junction and in the sacroiliac joints. Results CBC & Chem 7: 12/08/18 07:15 12/08/18 07:15 Labs: Abnormal Lab Results - Last 24 Hours (Table) 12/07/18 12/07/18 12/08/18 Range/Units 16:59 20:54 07:06 Hgb (11.4-16.0) gm/dL Hct (34.0-46.0) % RDW (11.5-15.5) % Chloride (98-107) mmol/L Glucose (74-99) mg/dL POC Glucose (mg/dL) 105 H 144 H 141 H (75-99) mg/dL Total Bilirubin (0.2-1.3) mg/dL AST (14-36) U/L Total Protein (6.3-8.2) g/dL Albumin (3.5-5.0) g/dL 12/08/18 12/08/18 12/08/18 Range/Units 07:15 07:15 11:19 Hgb 10.7 L D (11.4-16.0) gm/dL Hct 33.9 L (34.0-46.0) % RDW 16.1 H (11.5-15.5) % Chloride 111 H (98-107) mmol/L Glucose 136 H (74-99) mg/dL POC Glucose (mg/dL) 136 H (75-99) mg/dL Total Bilirubin 0.1 L (0.2-1.3) mg/dL AST 13 L (14-36) U/L Total Protein 5.7 L (6.3-8.2) g/dL Albumin 2.8 L (3.5-5.0) g/dL Microbiology - Last 24 Hours (Table) 12/07/18 13:35 Urine Culture - Preliminary Urine,Voided Assessment and Plan (1) Chronic pain syndrome Current Visit: No Status: Acute Code(s): G89.4 - CHRONIC PAIN SYNDROME SNOMED Code(s): 934248435 Plan: We had a discussion with the patient regarding her plan of care. She reports that she came to the hospital because of low back pain. She was found to have urinary tract infection now this is being treated. Is unclear what role this plays in her back pain. When we entered the room, she also had quite uncomfortable posture in the bed. When she sat up and stood up and seemed as if this improves. She is currently being seen by physical therapy which I would definitely recommend. I would not change reprogramming of her intrathecal pump. She could be given tramadol as she has at home. This is usually 1-2 tablets daily of the 50 mg size. I would also recommend restarting her home Celebrex and Robaxin as I believe these would help with her pain. She could be given Tylenol 500 mg by mouth every 6 hours as needed. I would also recommend obtaining x-rays of her lumbar and sacral spine to evaluate for any undiagnosed fractures. The patient will follow-up with her primary pain physician. Time with Patient: Less than 30 PQRS Measure Charge Sheet Measure #130: Documentation of Current Meds in Medical Chart: Patient's medications documented in chart Measure #226: Tobacco Use: Screen & Cessation Intervention: Pt not a tobacco user Measure #111: Pneumonia Vaccination: Pneumococcal vaccine administered or previously received Measure #47: Advance Care Plan: Advance care planning discussed & documented, plan or surrogate given Measure #412: Opioid Treatment Agreement: No documentation of signed opioid treatment agreement Measure #408: Opioid Therapy Follow-up Evaluation: Patient had NO f/u eval minimum every 3 months during opioid therapy Measure #317: Preventitive Care & Scrn High Bld Press & F/U: Normal blood pressure, f/u not required Measure #128: Body Mass Index (BMI) Screening & Follow-up: BMI documented within normal parameters Measure #131: Pain Assessment & Follow-up: Pain positive & plan documented Measure #431: Unhealthy Alcohol Use Preventative Care & Scrn: Patient not identified as an unhealthy alcohol user PQRS Narrative: Smoking Status Never smoker Do You Want the Pneumonia No Vaccine AT THIS TIME? Blood Pressure [Right Arm] 128/61 Blood Pressure 105/50 Pain Intensity [Back] 3 Pain Intensity 3 Pain Scale Used Numeric (1 - 10) Scale Used Numeric (1 - 10) Home Medications: Ambulatory Orders Aspirin EC [Ecotrin Low Dose] 81 mg PO DAILY 04/22/16 Methocarbamol [Robaxin] 500 mg PO BID PRN 04/22/16 traMADol HCL [Ultram] 50 mg PO DAILY PRN 04/22/16 Rosuvastatin Calcium [Crestor] 40 mg PO DAILY 06/02/16 Levothyroxine Sodium [Synthroid] 75 mcg PO DAILY 11/01/17 Celecoxib [CeleBREX] 200 mg PO DAILY 06/21/18 DULoxetine HCL [Cymbalta] 60 mg PO DAILY 06/21/18 Mirabegron [Myrbetriq] 50 mg PO DAILY 06/21/18 Montelukast [Singulair] 10 mg PO DAILY 06/21/18 Valsartan [Diovan] 40 mg PO DAILY 06/21/18 Nocdurna 27.7 mcg SUBLINGUAL HS 08/20/18 Ibuprofen [Motrin Ib] 200 mg PO Q6H PRN 09/15/18 Morphine Pain Pump 1 dose INTRATHECA CONTINUOUS 10/27/18 Sennosides-Docusate Sodium [Senokot-S] 2 tab PO BID #120 tablet 10/29/18 Insulin Glargine,Hum.rec.anlog [Lantus Solostar] 30 unit SQ DAILY #0 11/01/18 Pantoprazole [Protonix] 40 mg PO BID 30 Days #60 tablet. 11/01/18 INSULIN ASPART (NovoLOG) [NovoLOG (formulary)] See Protocol SQ ACHS 12/06/18
--- NOTE | 2018-12-08 12:44 | P.PN ---
Subjective Progress Note Date: 12/08/18 This is a 68-year-old female patient of Dr. Rose. Patient presented with nausea vomiting and weakness. Patient reports that her urine was foul-smelling and thick. Patient denies any fevers at home. Patient does have a past medical history of breast cancer with left mastectomy, diabetes mellitus, GERD, hyperlipidemia, hypertension, pneumonia, sleep apnea, chronic pain in which she is on PainPump and cholecystectomy. Patient was recently admitted for fall and discharged to inpatient rehab. Patient reports that she went home and was doing well up until yesterday. UA was positive for leukocyte esterase. Urine culture has been ordered. Patient has been started on Rocephin for UTI. At this time patient is resting comfortably in bed. Patient reports she feels improved from yesterday. Patient denies chest pain or shortness breath. Patient reports she does not have any nausea or vomiting at this time. Patient is reporting urinary frequency. On 12/08/2018 patient is alert and oriented 3. At this time patient is still complaining of chronic lower back pain. Patient was evaluated by pain services. This time patient denies nausea vomiting or diarrhea. Patient denies any chest pain or shortness breath. Patient denies any urinary burning or frequency. Objective - Vital Signs Vital signs: Vital Signs Temp 97.9 F 12/08/18 08:02 Pulse 65 12/08/18 08:02 Resp 17 12/08/18 01:12 BP 128/61 12/08/18 08:02 Pulse Ox 96 12/08/18 08:02 Intake & Output 12/07/18 12/08/18 12/08/18 18:59 06:59 18:59 Intake Total 980 350 Balance 980 350 Intake: Intake, IV Titration 800 350 Amount Sodium Chloride 0.9% 1, 800 350 000 ml @ 100 mls/hr IV . Q10H ONE Rx#:[id number] Oral 180 Other: Voiding Method Toilet # Voids 2 2 - Exam Head normocephalic Neck supple Lungs clear to auscultation bilaterally no wheezing or crackles Heart regular rate and rhythm S1-S2, no rub or gallop Abdomen is soft nontender nondistended positive bowel sounds no hepatosplenomegaly Extremities no edema Neuro alert and orientated to 3 - Labs CBC & Chem 7: 12/08/18 12:01 12/08/18 07:15 Labs: Abnormal Lab Results - Last 24 Hours (Table) 12/07/18 12/07/18 12/08/18 Range/Units 16:59 20:54 07:06 Hgb (11.4-16.0) gm/dL Hct (34.0-46.0) % RDW (11.5-15.5) % Chloride (98-107) mmol/L Glucose (74-99) mg/dL POC Glucose (mg/dL) 105 H 144 H 141 H (75-99) mg/dL Total Bilirubin (0.2-1.3) mg/dL AST (14-36) U/L Total Protein (6.3-8.2) g/dL Albumin (3.5-5.0) g/dL 12/08/18 12/08/18 12/08/18 Range/Units 07:15 07:15 11:19 Hgb 10.7 L D (11.4-16.0) gm/dL Hct 33.9 L (34.0-46.0) % RDW 16.1 H (11.5-15.5) % Chloride 111 H (98-107) mmol/L Glucose 136 H (74-99) mg/dL POC Glucose (mg/dL) 136 H (75-99) mg/dL Total Bilirubin 0.1 L (0.2-1.3) mg/dL AST 13 L (14-36) U/L Total Protein 5.7 L (6.3-8.2) g/dL Albumin 2.8 L (3.5-5.0) g/dL 12/08/18 Range/Units 12:01 Hgb 11.1 L (11.4-16.0) gm/dL Hct (34.0-46.0) % RDW 15.9 H (11.5-15.5) % Chloride (98-107) mmol/L Glucose (74-99) mg/dL POC Glucose (mg/dL) (75-99) mg/dL Total Bilirubin (0.2-1.3) mg/dL AST (14-36) U/L Total Protein (6.3-8.2) g/dL Albumin (3.5-5.0) g/dL Microbiology - Last 24 Hours (Table) 12/07/18 13:35 Urine Culture - Preliminary Urine,Voided Assessment and Plan Assessment: 1. Increased weakness due to urinary tract infection. Urine culture ordered. Patient started on Rocephin. Ultrasound of kidneys renal and bladder completed showing no evidence for hydronephrosis no obvious a sizable shadowing renal calculi are seen. 2. Chronic back pain. Patient does have pain pump follows with Dr. Lewis. Pain services consulted 3. History of cholecystectomy 4. Diabetes mellitus type 2. Patient maintained on Lantus 30 units nightly plus sliding scale coverage 5. History of hypothyroidism 6. History of essential hypertension 7. History of sleep apnea 8. History of GERD 9. History of falls. Patient was recently discharged to inpatient rehab. 10. QT prolonged. EKG showing normal sinus rhythm nonspecific T-wave abnormality. Prolonged QT. Mona Robles. Cardiology services consulted DVT prophylaxis Lovenox. GI prophylaxis Protonix Dr. Russo consulted for inpatient rehab I performed an examination of the patient and discussed their management with the Nurse Practitioner. I have reviewed the Nurse Practitioner's notes and agree with the documented findings and plan of care
[2018-12-08 12:50] LABS: Anion Gap 8 mmol/L; Blood Urea Nitrogen 9 mg/dL (7-17); Calcium 8.9 mg/dL (8.4-10.2); Carbon Dioxide 21 mmol/L (22-30); Chloride 112 mmol/L (98-107); Glucose 119 mg/dL (74-99); Magnesium 1.4 mg/dL (1.6-2.3); Potassium 4.5 mmol/L (3.5-5.1); Sodium 141 mmol/L (137-145)
[2018-12-08] MEDS ORDERED: Magnesium Replacement Protocol 1 EACH MISC MISCELLANE PRN (13:49)
--- NOTE | 2018-12-08 13:55 | P.CRDCN ---
History of Present Illness History of present illness: This is a pleasant 68-year-old female past medical history significant for hypertension, dyslipidemia, diabetes mellitus, obstructive sleep apnea and chronic back pain. 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 We've been asked to see her in consultation secondary to an abnormal EKG. She presented to the hospital with symptoms of increased lower back discomfort. She states she has chronic low back pain and takes pain medication regularly as well as has a pain pump implanted. However this pain was rather persistent and different from her typical pain. Upon arrival she was noted to have a significant urinary tract infection has been started on antibiotics. She is seen and examined resting comfortably in bed in no acute distress. She denies symptoms of chest discomfort, shortness of breath, dizziness, palpitations or diaphoresis. EKG obtained on arrival reveals sinus mechanism with nonspecific T-wave inversions noted in anteroseptal leads and a QTC of 476 ms. Consistent with previous EKGs with no acute changes noted. Current daily medications include aspirin 81 mg daily, valsartan 40 mg daily, rosuvastatin 40 mg daily, Ultram, Senokot, protonic, morphine, Singulair, Mirabegron, Robaxin, Synthroid, Lantus, Cymbalta and Celebrex. Most recent echocardiogram obtained in August 2018 reveals preserved left ventricular systolic function with ejection fraction 55%. At the time of my exam: CONSTITUTIONAL: Denies fever. Denies chills. EYES: Denies blurred vision. Denies vision changes. Denies eye pain. EARS, NOSE, MOUTH & THROAT: Denies headache. Denies sore throat. Denies ear pain. CARDIOVASCULAR: Denies chest pain. Denies shortness of breath. Denies orthopnea. Denies PND. Denies palpitations. RESPIRATORY: Denies cough. GASTROINTESTINAL: Denies abdominal pain. Denies diarrhea. Denies constipation. Denies nausea. Denies vomiting. MUSCULOSKELETAL: Denies myalgias. INTEGUMENTARY: Denies pruitis. Denies rash. NEUROLOGIC: Denies numbness. Denies tingling. Denies weakness. PSYCHIATRIC: Denies anxiety. Denies depression. ENDOCRINE: Denies fatigue. Denies weight change. Denies polydipsia. Denies polyurina. GENITOURINARY: Denies burning, hematuria or urgency with micturation. HEMATOLOGIC: Denies history of anemia. Denies bleeding. Blood pressure 120/61 heart rate 65 afebrile maintaining oxygen saturation on room air GENERAL: This is a 68-year-old female in no apparent distress at the time of my examination. HEENT: Head is atraumatic, normocephalic. Pupils are equal, round. Sclerae anicteric. Conjunctivae are clear. Mucous membranes of the mouth are moist. Neck is supple. There is no jugular venous distention. No carotid bruit is heard. LUNGS: Clear to auscultation no wheezes, rales or rhonchi. No chest wall tenderness is noted on palpation or with deep breathing. HEART: Regular rate and rhythm without murmurs, rubs or gallops. S1 and S2 heard. ABDOMEN: Soft, nontender. Bowel sounds are heard. No organomegaly noted. EXTREMITIES: No evidence of peripheral edema and no calf tenderness noted. VASCULAR: Radial and dorsalis pedis pulses palpated, no evidence of clubbing. NEUROLOGIC: Patient is awake, alert and oriented x3. ASSESSMENT Acute urinary tract infection Prolonged QT interval Hypomagnesemia Hypertension Dyslipidemia Diabetes mellitus Obstructive sleep apnea noncompliance with CPAP at home Chronic back pain, pain pump in place PLAN Repeat EKG and echocardiogram. Repeat CBC and magnesium level requested and reviewed, replace magnesium per protocol. Repeat EKG in the morning along with magnesium level. Ultram is a medication on her daily profile that may affect the QT interval and should possibly be considered to discontinue. Further recommendations to follow. Thank you kindly for this consultation. Nurse Practitioner note has been reviewed, I agree with a documented findings and plan of care. Patient was seen and examined. Past Medical History Past Medical History: Cancer, Diabetes Mellitus, GERD/Reflux, Hyperlipidemia, Hypertension, Pneumonia, Sleep Apnea/CPAP/BIPAP Additional Past Medical History / Comment(s): Pt recently admitted 08/22/18 with pneumonia/sepsis possible aspiration pne, N/V, UTI, hyperkalemia and constipation. Other Hx: IDDM type II, chronic low back pain radiates to L leg/has pain pump, herniated discs, colitis, black stools, L breast cancer with mastectomy, irregular heart beat once, JANENE with Cpap, dysphagia, hypothyroid, constipation. History of Any Multi-Drug Resistant Organisms: MRSA Date of last positivie culture/infection: 04/02/17 MDRO Source:: URINE Past Surgical History: Back Surgery, Breast Surgery, Cholecystectomy, Hy sterectomy Additional Past Surgical History / Comment(s): Lt Mastectomy W/ RECONSTRUCTION; RT BREAST IMPLANT. SINUS SURG X3., colonoscopy, pain pump implant Past Anesthesia/Blood Transfusion Reactions: Previous Problems w/ Anesthesia Additional Past Anesthesia/Blood Transfusion Reaction / Comment(s): HX OF DAMAGE TO VOCAL CORDS POST-OP BACK SURGERY Past Psychological History: No Psychological Hx Reported Additional Psychological History / Comment(s): Pt resides with her spouse. She uses a cane or walker to ambulate. She has a pain pump d/t back pain. She has a glucometer. She recently established with [facility]. Smoking Status: Never smoker Past Alcohol Use History: None Reported Past Drug Use History: None Reported - Past Family History Father Sister(s) Family Medical History: Cancer Additional Family Medical History / Comment(s): Father had leukemia and sister had pancreatic cancer. Brother(s) Family Medical History: Cancer Additional Family Medical History / Comment(s): Prostate cancer, ANEURYSM Mother History Unknown: Yes Family Medical History: No Reported History Additional Family Medical History / Comment(s): Mother was healthy. Medications and Allergies Home Medications Medication Instructions Recorded Confirmed Type Aspirin EC [Ecotrin Low Dose] 81 mg PO DAILY 04/22/16 12/06/18 History Methocarbamol [Robaxin] 500 mg PO BID PRN 04/22/16 12/06/18 History traMADol HCL [Ultram] 50 mg PO DAILY PRN 04/22/16 12/06/18 History Rosuvastatin Calcium [Crestor] 40 mg PO DAILY 06/02/16 12/06/18 History Levothyroxine Sodium [Synthroid] 75 mcg PO DAILY 11/01/17 12/06/18 History Celecoxib [CeleBREX] 200 mg PO DAILY 06/21/18 12/06/18 History DULoxetine HCL [Cymbalta] 60 mg PO DAILY 06/21/18 12/06/18 History Mirabegron [Myrbetriq] 50 mg PO DAILY 06/21/18 12/06/18 History Montelukast [Singulair] 10 mg PO DAILY 06/21/18 12/06/18 History Valsartan [Diovan] 40 mg PO DAILY 06/21/18 12/06/18 History Nocdurna 27.7 mcg SUBLINGUAL HS 08/20/18 12/06/18 History Ibuprofen [Motrin Ib] 200 mg PO Q6H PRN 09/15/18 12/06/18 History Morphine Pain Pump 1 dose INTRATHECA CONTINUOUS 10/27/18 12/06/18 History Sennosides-Docusate Sodium 2 tab PO BID #120 tablet 10/29/18 12/06/18 Rx [Senokot-S] Insulin Glargine,Hum.rec.anlog 30 unit SQ DAILY #0 11/01/18 12/06/18 Rx [Lantus Solostar] Pantoprazole [Protonix] 40 mg PO BID 30 Days #60 tablet. 11/01/18 12/06/18 Rx INSULIN ASPART (NovoLOG) [NovoLOG See Protocol SQ ACHS 12/06/18 12/06/18 History (formulary)] Allergies Allergy/AdvReac Type Severity Reaction Status Date / Time neomycin Allergy Itching Verified 12/06/18 13:54 Sulfa (Sulfonamide Allergy Dyspnea Verified 12/06/18 13:54 Antibiotics) sulfamethoxazole Allergy Dyspnea Verified 12/06/18 13:54 [From ] trimethoprim [From ] Allergy Dyspnea Verified 12/06/18 13:54 codeine AdvReac headache Verified 12/06/18 13:54 morphine AdvReac Itching Verified 12/06/18 13:54 Physical Exam Vitals: Vital Signs Temp Pulse Resp BP Pulse Ox 12/08/18 08:02 97.9 F 65 128/61 96 12/08/18 01:12 97.9 F 82 17 93/54 91 L 12/07/18 19:17 98.5 F 69 16 94/55 91 L 12/07/18 14:47 98.2 F 83 15 92/54 90 L Intake and Output 12/07/18 12/08/18 12/08/18 22:59 06:59 14:59 Intake Total 530 Balance 530 Intake: Intake, IV Titration 350 Amount Sodium Chloride 0.9% 1, 350 000 ml @ 100 mls/hr IV . Q10H ONE Rx#:[id number] Oral 180 Other: Voiding Method Toilet # Voids 1 2 Results 12/08/18 12:01 12/08/18 12:01 Cardiac Enzymes 12/07/18 12/08/18 Range/Units 09:28 07:15 AST 26 13 L (14-36) U/L CBC 12/08/18 Range/Units 07:15 WBC 5.1 (3.8-10.6) k/uL RBC 3.89 (3.80-5.40) m/uL Hgb 10.7 L D (11.4-16.0) gm/dL Hct 33.9 L (34.0-46.0) % Plt Count 223 (150-450) k/uL Comprehensive Metabolic Panel 12/07/18 12/08/18 Range/Units 09:28 07:15 Sodium 142 140 (137-145) mmol/L Potassium 4.6 4.2 (3.5-5.1) mmol/L Chloride 109 H 111 H (98-107) mmol/L Carbon Dioxide 22 23 (22-30) mmol/L BUN 10 10 (7-17) mg/dL Creatinine 0.73 0.79 (0.52-1.04) mg/dL Glucose 129 H 136 H (74-99) mg/dL Calcium 9.4 8.5 (8.4-10.2) mg/dL AST 26 13 L (14-36) U/L ALT 20 18 (9-52) U/L Alkaline Phosphatase 91 73 (38-126) U/L Total Protein 8.1 5.7 L (6.3-8.2) g/dL Albumin 4.1 2.8 L (3.5-5.0) g/dL Current Medications Generic Name Dose Route Start Last Admin Trade Name Connorq PRN Reason Stop Dose Admin Aspirin 81 mg 12/07/18 09:00 12/08/18 09:38 Aspirin PO 81 mg DAILY YINKA Administration Atorvastatin Calcium 80 mg 12/07/18 09:00 12/08/18 09:38 Lipitor PO 80 mg DAILY YINKA Administration Diphenhydramine HCl 25 mg 12/07/18 14:54 12/07/18 16:05 Benadryl PO 25 mg Q6H PRN Administration Itching Duloxetine HCl 60 mg 12/07/18 09:00 12/08/18 09:38 Cymbalta PO 60 mg DAILY YINKA Administration Enoxaparin Sodium 40 mg 12/07/18 11:00 12/08/18 09:37 Lovenox SQ 40 mg DAILY YINKA Administration Hydromorphone HCl 1 mg 12/06/18 14:59 12/07/18 14:39 Dilaudid IVP 1 mg Q4HR PRN Administration Pain Ceftriaxone Sodium 1 gm/ 50 mls @ 100 mls/hr 12/07/18 09:00 12/08/18 09:36 Sodium Chloride IVPB 100 mls/hr Q24HR YINKA Administration Insulin Aspart 0 unit 12/06/18 21:00 12/08/18 09:37 Novolog SQ 1 unit ACHS YINKA Administration Protocol Insulin Detemir 30 unit 12/06/18 20:45 12/08/18 09:37 Levemir SQ 30 unit DAILY YINKA Administration Levothyroxine Sodium 75 mcg 12/07/18 06:30 12/08/18 05:35 Synthroid PO 75 mcg 0630 YINKA Administration Meloxicam 7.5 mg 12/07/18 09:00 12/08/18 09:38 Mobic PO 7.5 mg DAILY YINKA Administration Methocarbamol 500 mg 12/06/18 20:32 Robaxin PO BID PRN Muscle Pain Montelukast Sodium 10 mg 12/07/18 09:00 12/08/18 09:38 Singulair PO 10 mg DAILY YINKA Administration Patient's Own Med ( 50 mg 12/07/18 09:00 12/07/18 11:59 Mirabegron [ PO Not Given Myrbetriq] 50 Mg) DAILY [facility] Pantoprazole Sodium 40 mg 12/07/18 21:00 12/08/18 09:39 Protonix IVP 40 mg BID YINKA Administration Prochlorperazine Maleate 5 mg 12/07/18 13:15 Compazine PO Q8HR PRN Nausea And Vomiting Senna/Docusate Sodium 2 each 12/06/18 21:00 12/08/18 09:38 Senokot-S PO 2 each BID YINKA Administration Tramadol HCl 50 mg 12/06/18 20:32 12/08/18 09:52 Ultram PO 50 mg DAILY PRN Administration Pain Valsartan 40 mg 12/07/18 09:00 12/08/18 09:38 Diovan PO 40 mg DAILY YINKA Administration Intake and Output 12/07/18 12/08/18 12/08/18 22:59 06:59 14:59 Intake Total 530 Balance 530 Intake: Intake, IV Titration 350 Amount Sodium Chloride 0.9% 1, 350 000 ml @ 100 mls/hr IV . Q10H ONE Rx#:[id number] Oral 180 Other: Voiding Method Toilet # Voids 1 2 12/08/18 07:15 12/08/18 07:15
[2018-12-08] MEDS ORDERED: HYDROmorphone 4 MG TABLET PO PRN (14:27)
--- NOTE | 2018-12-08 15:44 | XR ---
EXAMINATION TYPE: XR spine complete AP and Lat DATE OF EXAM: 12/08/2018 COMPARISON: 10/27/2018 HISTORY: Diffuse back pain TECHNIQUE: Anterior and posterior views of the entire spine were performed. Odontoid view was also ob tained. FINDINGS: No acute fracture or malalignment is seen of the cervical spine. Anterior cervical fusion d evice spans the C4-C6 vertebral bodies with intervertebral disc cages present. Large bridging osteoph ytes are seen at C2-C3 and C3-C4. No abnormal prevertebral soft tissue swelling. The thoracic spine vertebral bodies also maintains normal vertebral body height and alignment. Mild m ultilevel degenerative disc disease is seen as intervertebral disc space narrowing and small anterior osteophytes. There is surgical fusion of the L5-S1 vertebral levels as well as the 3 L4 vertebral levels with inte rvertebral disc cages. Facet arthropathy is noted with heterotopic ossification in the left. No compr ession deformity or malalignment of the thoracic spine is seen. Cholecystectomy clips are evident. IMPRESSION: No acute fracture or malalignment of the cervical, thoracic, or lumbar spine. Large bridg ing osteophytes are present of the upper cervical spine, mild multilevel degenerative changes of the thoracic spine are seen, and lower lumbar spine facet arthropathy with postsurgical change are noted.
[2018-12-08] MEDS: MAGNESIUM SULFATE-D5W PMX 1 GM in DEXTROSE/WATER 1 100ML.BAG IVPB SCH ×3 (16:24→20:54)
[2018-12-08] MEDS: HYDROmorphone 2 MG TAB PO PRN ×2 (16:56→21:07)
[2018-12-08 17:05] LABS: Glucose,Whole Blood 137 mg/dL (75-99)
[2018-12-08 20:37] LABS: Glucose,Whole Blood 102 mg/dL (75-99)
[2018-12-08 20:42] LABS: Hemoglobin A1C 7.4 % (4.0-6.0)
[2018-12-08] MEDS: METHOCARBAMOL 500 MG TAB PO PRN (20:54)
[2018-12-09] MEDS: HYDROmorphone 2 MG TAB PO PRN (05:36)
--- NOTE | 2018-12-09 06:17 | P.CONS ---
History of Present Illness - Chief Complaint Walking difficulty - History of Present Illness I had the opportunity to see patient for inpatient rehab consultation with regard to walking difficulty. She was admitted to [facility] December 06 with nausea and emesis and recent fall. Seen by cardiology for known cardiac disease. Seen for pain management for pain pump management. Abdominal ultrasound negative for hydronephrosis bladder. Spine x-ray with osteophytes C2, 3. DDD thoracic spine. Fusion lumbar 5 with the cages and 3 vertebrae. OT reports modified independent with all basic self-care indeed. PT prescribed. Previous functional sick: Patient recent discharge from inpatient rehab and discharged to home, was independent at home. Review of Systems Review of systems: ENT: Denies sneezes or discharge. Eyes: Denies discharge or photophobia. Cardiac: Denies chest pain or palpitation. Pulmonary: Denies cough or shortness of breath. Breast: Denies discharge or lumps. Gastrointestinal: Denies nausea, emesis, constipation, diarrhea. Genitourinary: Denies discharge or frequency. Musculoskeletal: Denies muscle or bone aches. Back pain. Neurologic: Describe some minor confusion or mental fogginess. Denies motor or sensory change. Endocrine: Denies shakes or sweats. Oncology: Denies cancers. Dermatologic: Denies rash, itching, pruritus. ALLERGY/immunology: Denies sneezes, rashes. Past Medical History Past Medical History: Cancer, Diabetes Mellitus, GERD/Reflux, Hyperlipidemia, Hypertension, Pneumonia, Sleep Apnea/CPAP/BIPAP Additional Past Medical History / Comment(s): Pt recently admitted 08/22/18 with pneumonia/sepsis possible aspiration pne, N/V, UTI, hyperkalemia and constipation. Other Hx: IDDM type II, chronic low back pain radiates to L leg/has pain pump, herniated discs, colitis, black stools, L breast cancer with mastectomy, irregular heart beat once, JANENE with Cpap, dysphagia, hypothyroid, constipation. History of Any Multi-Drug Resistant Organisms: MRSA Year Discovered:: 04/02/17 MDRO Source:: URINE Past Surgical History: Back Surgery, Breast Surgery, Cholecystectomy, Hysterectomy Additional Past Surgical History / Comment(s): Lt Mastectomy W/ RECONSTRUCTION; RT BREAST IMPLANT. SINUS SURG X3., colonoscopy, pain pump implant Past Anesthesia/Blood Transfusion Reactions: Previous Problems w/ Anesthesia Additional Past Anesthesia/Blood Transfusion Reaction / Comm: HX OF DAMAGE TO VOCAL CORDS POST-OP BACK SURGERY Past Psychological History: No Psychological Hx Reported Additional Psychological History / Comment(s): Pt resides with her spouse. She uses a cane or walker to ambulate. She has a pain pump d/t back pain. She has a glucometer. She recently established with [facility]. Smoking Status: Never smoker Past Alcohol Use History: None Reported Past Drug Use History: None Reported - Past Family History Father Sister(s) Family Medical History: Cancer Additional Family Medical History / Comment(s): Father had leukemia and sister had pancreatic cancer. Brother(s) Family Medical History: Cancer Additional Family Medical History / Comment(s): Prostate cancer, ANEURYSM Mother History Unknown: Yes Family Medical History: No Reported History Additional Family Medical History / Comment(s): Mother was healthy. Medications and Allergies Home Medications Medication Instructions Recorded Confirmed Type Aspirin EC [Ecotrin Low Dose] 81 mg PO DAILY 04/22/16 12/06/18 History Methocarbamol [Robaxin] 500 mg PO BID PRN 04/22/16 12/06/18 History traMADol HCL [Ultram] 50 mg PO DAILY PRN 04/22/16 12/06/18 History Rosuvastatin Calcium [Crestor] 40 mg PO DAILY 06/02/16 12/06/18 History Levothyroxine Sodium [Synthroid] 75 mcg PO DAILY 11/01/17 12/06/18 History Celecoxib [CeleBREX] 200 mg PO DAILY 06/21/18 12/06/18 History DULoxetine HCL [Cymbalta] 60 mg PO DAILY 06/21/18 12/06/18 History Mirabegron [Myrbetriq] 50 mg PO DAILY 06/21/18 12/06/18 History Montelukast [Singulair] 10 mg PO DAILY 06/21/18 12/06/18 History Valsartan [Diovan] 40 mg PO DAILY 06/21/18 12/06/18 History Nocdurna 27.7 mcg SUBLINGUAL HS 08/20/18 12/06/18 History Ibuprofen [Motrin Ib] 200 mg PO Q6H PRN 09/15/18 12/06/18 History Morphine Pain Pump 1 dose INTRATHECA CONTINUOUS 10/27/18 12/06/18 History Sennosides-Docusate Sodium 2 tab PO BID #120 tablet 10/29/18 12/06/18 Rx [Senokot-S] Insulin Glargine,Hum.rec.anlog 30 unit SQ DAILY #0 11/01/18 12/06/18 Rx [Lantus Solostar] Pantoprazole [Protonix] 40 mg PO BID 30 Days #60 tablet. 11/01/18 12/06/18 Rx INSULIN ASPART (NovoLOG) [NovoLOG See Protocol SQ ACHS 12/06/18 12/06/18 History (formulary)] Allergies Allergy/AdvReac Type Severity Reaction Status Date / Time neomycin Allergy Itching Verified 12/06/18 13:54 Sulfa (Sulfonamide Allergy Dyspnea Verified 12/06/18 13:54 Antibiotics) sulfamethoxazole Allergy Dyspnea Verified 12/06/18 13:54 [From ] trimethoprim [From ] Allergy Dyspnea Verified 12/06/18 13:54 codeine AdvReac headache Verified 12/06/18 13:54 morphine AdvReac Itching Verified 12/06/18 13:54 Physical Exam Vitals: Vital Signs Temp Pulse Resp BP Pulse Ox 12/09/18 00:55 98.0 F 91 16 120/73 94 L 12/09/18 00:01 15 12/08/18 20:41 17 12/08/18 19:14 97.9 F 74 16 109/63 92 L 12/08/18 15:57 96.9 F L 92 95/66 96 12/08/18 15:52 98.1 F 64 121/68 94 L 12/08/18 08:02 97.9 F 65 128/61 96 Intake and Output 12/08/18 12/08/18 12/09/18 14:59 22:59 06:59 Intake Total 640 Balance 640 Intake: Intake, IV Titration 100 Amount Magnesium Sulfate-D5w Pmx 100 1 gm In Dextrose/Water 1 100ml.bag @ 100 mls/hr IVPB Q1H YINKA Rx#: [id number] Oral 540 Other: Voiding Method Toilet # Voids 2 2 Skin: Good color, texture, turgor. General: Medium build and comfortable appearance. Head: Normocephalic, atraumatic. Eyes: Symmetric. Pupils equal round. Ears: Symmetric. Hearing within normal limits. Mouth: Clear. Neck: Supple. Carotid without bruit. Cardiac: Regular rate and rhythm. Lungs: Clear anteriorly and posteriorly. Abdomen: Soft active nontender. Extremities: Normal tone. Neurological: Mental status: Alert, cooperative, pleasant. Cranial nerves: Symmetric facial tone and trapezius. Motor: Normal strength and isolation all 4 limbs. Sensation: Intact throughout. DTRs: Symmetric and equal throughout. Mobility: Bed mobility without assistance. Results CBC & Chem 7: 12/08/18 12:01 12/08/18 12:01 Labs: Abnormal Lab Results - Last 24 Hours (Table) 12/08/18 12/08/18 12/08/18 Range/Units 07:06 07:15 07:15 Hgb 10.7 L D (11.4-16.0) gm/dL Hct 33.9 L (34.0-46.0) % RDW 16.1 H (11.5-15.5) % Chloride 111 H (98-107) mmol/L Carbon Dioxide (22-30) mmol/L Glucose 136 H (74-99) mg/dL POC Glucose (mg/dL) 141 H (75-99) mg/dL Hemoglobin A1c (4.0-6.0) % Magnesium (1.6-2.3) mg/dL Total Bilirubin 0.1 L (0.2-1.3) mg/dL AST 13 L (14-36) U/L Total Protein 5.7 L (6.3-8.2) g/dL Albumin 2.8 L (3.5-5.0) g/dL 12/08/18 12/08/18 12/08/18 Range/Units 07:15 11:19 12:01 Hgb 11.1 L (11.4-16.0) gm/dL Hct (34.0-46.0) % RDW 15.9 H (11.5-15.5) % Chloride (98-107) mmol/L Carbon Dioxide (22-30) mmol/L Glucose (74-99) mg/dL POC Glucose (mg/dL) 136 H (75-99) mg/dL Hemoglobin A1c 7.4 H (4.0-6.0) % Magnesium (1.6-2.3) mg/dL Total Bilirubin (0.2-1.3) mg/dL AST (14-36) U/L Total Protein (6.3-8.2) g/dL Albumin (3.5-5.0) g/dL 12/08/18 12/08/18 12/08/18 Range/Units 12:01 16:53 20:35 Hgb (11.4-16.0) gm/dL Hct (34.0-46.0) % RDW (11.5-15.5) % Chloride 112 H (98-107) mmol/L Carbon Dioxide 21 L (22-30) mmol/L Glucose 119 H (74-99) mg/dL POC Glucose (mg/dL) 137 H 102 H (75-99) mg/dL Hemoglobin A1c (4.0-6.0) % Magnesium 1.4 L (1.6-2.3) mg/dL Total Bilirubin (0.2-1.3) mg/dL AST (14-36) U/L Total Protein (6.3-8.2) g/dL Albumin (3.5-5.0) g/dL Microbiology - Last 24 Hours (Table) 12/07/18 13:35 Urine Culture - Final Urine,Voided Assessment and Plan (1) Nausea & vomiting Current Visit: Yes Status: Acute Code(s): R11.2 - NAUSEA WITH VOMITING, UNSPECIFIED SNOMED Code(s): 50014915 (2) Chronic pain syndrome Current Visit: No Status: Acute Code(s): G89.4 - CHRONIC PAIN SYNDROME SN OMED Code(s): 919475501 Plan: Impression: 1. Walking difficulty. 2. History of falls with recent fall. 3. Chronic back pain. 4. Colitis. 5. Hypertension. 6. Sleep apnea with CPAP. 7. Diabetes. 8. History cancer. Constant plan: At this time OT is evaluated patient and determined patient to be modified independent indeed. Patient at this time would be too good for return to inpatient rehab. Also doubt the patient has new medical problem, which would required as well. Will await PT evaluation though.
[2018-12-09 07:11] LABS: Glucose,Whole Blood 113 mg/dL (75-99)
[2018-12-09 07:57] LABS: Basophils % (A) 0 %; Eosinophils # (A) 0.3 k/uL (0-0.7); Eosinophils % (A) 3 %; HCT 36.5 % (34.0-46.0); HGB 11.2 gm/dL (11.4-16.0); Hypochromasia Moderate; Lymphocytes # (A) 1.8 k/uL (1.0-4.8); Lymphocytes % (A) 24 %; MCH 26.5 pg (25.0-35.0); MCHC 30.8 g/dL (31.0-37.0); MCV 86.1 fL (80.0-100.0); Mean Platelet Volume 7.3; Monocytes # (A) 0.4 k/uL (0-1.0); Monocytes % (A) 6 %; Neutrophils # (A) 4.7 k/uL (1.3-7.7); Neutrophils % (A) 65 %; Platelet Count 250 k/uL (150-450); RBC 4.23 m/uL (3.80-5.40); RDW 15.7 % (11.5-15.5); WBC 7.3 k/uL (3.8-10.6)
[2018-12-09] MEDS: INSULIN ASPART (NovoLOG) 100 UNIT/ML VIAL SQ SCH ×4 (08:09→21:24)
[2018-12-09 08:10] LABS: ALT 22 U/L (9-52); AST 18 U/L (14-36); Albumin 3.3 g/dL (3.5-5.0); Alkaline Phosphatase 78 U/L (38-126); Anion Gap 5 mmol/L; Blood Urea Nitrogen 10 mg/dL (7-17); Calcium 8.7 mg/dL (8.4-10.2); Carbon Dioxide 24 mmol/L (22-30); Chloride 110 mmol/L (98-107); Glucose 95 mg/dL (74-99); Magnesium 1.8 mg/dL (1.6-2.3); Potassium 4.8 mmol/L (3.5-5.1); Sodium 139 mmol/L (137-145); Total Bilirubin 0.3 mg/dL (0.2-1.3); Total Protein 6.6 g/dL (6.3-8.2)
[2018-12-09] MEDS: PATIENT'S OWN MED (Mirabegron [Myrbetriq] 50 MG) PO SCH (08:15)
[2018-12-09] MEDS: INSULIN DETEMIR (LEVEMIR) 100 UNIT/ML SYR SQ SCH (08:19)
[2018-12-09] MEDS: PANTOPRAZOLE 40 MG/10 ML VIAL IVP SCH (08:19)
[2018-12-09] MEDS: ATORVASTATIN 80 MG TAB PO SCH (08:20)
[2018-12-09] MEDS: ENOXAPARIN 40 MG/0.4 ML SYRINGE SQ SCH (08:20)
[2018-12-09] MEDS: MONTELUKAST 10 MG TAB PO SCH (08:20)
[2018-12-09] MEDS: DULoxetine HCL 60 MG CAPSULE.DR PO SCH (08:20)
[2018-12-09] MEDS: MELOXICAM 7.5 MG TAB PO SCH (08:20)
[2018-12-09] MEDS: ASPIRIN 81 MG PO SCH (08:20)
[2018-12-09] MEDS: SENNOSIDES-DOCUSATE SODIUM 1 EACH TAB PO SCH ×2 (08:20→21:24)
[2018-12-09] MEDS: VALSARTAN 40 MG TAB PO SCH (08:31)
--- NOTE | 2018-12-09 10:46 | ECHOF ---
Referral Reason:ekg changes MEASUREMENTS -------- HEIGHT: 160.0 cm WEIGHT: 72.6 kg BP: RVIDd: 2.7 cm (< 3.3) IVSd: 1.0 cm (0.6 - 1.1) LVIDd: 4.3 cm (3.9 - 5.3) LVPWd: 1.0 cm (0.6 - 1.1) IVSs: 1.7 cm LVIDs: 2.0 cm LVPWs: 1.7 cm RAP: 5.00 mmHg RVSP: 33.38 mmHg FINDINGS -------- Sinus rhythm. Limited Study The left ventricular size is normal. Left ventricular wall thickness is normal. Overall left vent ricular systolic function is normal with, an EF between 55 - 60 %. There is no pericardial effusion. CONCLUSIONS -------- 1. Sinus rhythm. 2. Limited Study 3. The left ventricular size is normal. 4. Left ventricular wall thickness is normal. 5. Overall left ventricular systolic function is normal with, an EF between 55 - 60 %. 6. There is no pericardial effusion. HEDGE [employer]D TRADER: Carolin Gupta [facility]
[2018-12-09 11:28] LABS: Glucose,Whole Blood 144 mg/dL (75-99)
--- NOTE | 2018-12-09 13:21 | P.PN ---
Subjective This is a pleasant 68-year-old female past medical history significant for hypertension, dyslipidemia, diabetes mellitus, obstructive sleep apnea and chronic back pain. She is seen and examined resting comfortably in bed in no acute distress. She continues to complain of pain in her lower back with radiation to the right hip and down the right leg. Repeat EKG yesterday and again this morning show improvement in the QT interval. Yesterday was 447 and today was 444. Most likely this was due to nausea, vomiting, zofran and hypomagnesemia. Laboratory data reviewed, WBC 7.3, hgb 11.2, plt 250, sodium 139, potassium 4.8, creatinine 0.63 and magnesium 1.8. Blood pressure 132/63 heart rate 56 afebrile and maintaining oxygen saturation on room air. GENERAL: This is a 68-year-old female in no apparent distress at the time of my examination. HEENT: Head is atraumatic, normocephalic. Pupils are equal, round. Sclerae anicteric. Conjunctivae are clear. Mucous membranes of the mouth are moist. Neck is supple. There is no jugular venous distention. No carotid bruit is heard. LUNGS: Clear to auscultation no wheezes, rales or rhonchi. No chest wall tenderness is noted on palpation or with deep breathing. HEART: Regular rate and rhythm without murmurs, rubs or gallops. S1 and S2 heard. EXTREMITIES: No evidence of peripheral edema and no calf tenderness noted. ASSESSMENT Acute urinary tract infection Prolonged QT interval Hypomagnesemia Hypertension Dyslipidemia Diabetes mellitus Obstructive sleep apnea noncompliance with CPAP at home Chronic back pain, pain pump in place PLAN Overall stable from a cardiac perspective. Follow up with Dr. Oneal in the office in 2 weeks. We will follow as needed. Nurse Practitioner note has been reviewed, I agree with a documented findings and plan of care. Patient was seen and examined. Objective - Vital Signs Vital signs: Vital Signs Temp 97.5 F L 12/09/18 07:00 Pulse 56 L 12/09/18 07:00 Resp 16 12/09/18 07:00 BP 132/63 12/09/18 07:00 Pulse Ox 91 L 12/09/18 07:00 Intake & Output 12/08/18 12/09/18 12/09/18 18:59 06:59 18:59 Intake Total 640 Balance 640 Intake: Intake, IV Titration 100 Amount Magnesium Sulfate-D5w Pmx 100 1 gm In Dextrose/Water 1 100ml.bag @ 100 mls/hr IVPB Q1H [facility] Rx#: [id number] Oral 540 Other: Voiding Method Toilet Toilet # Voids 2 2 - Labs CBC & Chem 7: 12/09/18 07:30 12/09/18 07:30 Labs: Abnormal Lab Results - Last 24 Hours (Table) 12/08/18 12/08/18 12/08/18 Range/Units 07:15 16:53 20:35 Hgb (11.4-16.0) gm/dL MCHC (31.0-37.0) g/dL RDW (11.5-15.5) % Chloride (98-107) mmol/L POC Glucose (mg/dL) 137 H 102 H (75-99) mg/dL Hemoglobin A1c 7.4 H (4.0-6.0) % Albumin (3.5-5.0) g/dL 12/09/18 12/09/18 12/09/18 Range/Units 07:03 07:30 07:30 Hgb 11.2 L (11.4-16.0) gm/dL MCHC 30.8 L (31.0-37.0) g/dL RDW 15.7 H (11.5-15.5) % Chloride 110 H (98-107) mmol/L POC Glucose (mg/dL) 113 H (75-99) mg/dL Hemoglobin A1c (4.0-6.0) % Albumin 3.3 L (3.5-5.0) g/dL 12/09/18 Range/Units 11:26 Hgb (11.4-16.0) gm/dL MCHC (31.0-37.0) g/dL RDW (11.5-15.5) % Chloride (98-107) mmol/L POC Glucose (mg/dL) 144 H (75-99) mg/dL Hemoglobin A1c (4.0-6.0) % Albumin (3.5-5.0) g/dL Microbiology - Last 24 Hours (Table) 12/07/18 13:35 Urine Culture - Final Urine,Voided
--- NOTE | 2018-12-09 14:48 | P.PN ---
Subjective Progress Note Date: 12/09/18 This is a 68-year-old female patient of Dr. Rose. Patient presented with nausea vomiting and weakness. Patient reports that her urine was foul-smelling and thick. Patient denies any fevers at home. Patient does have a past medical history of breast cancer with left mastectomy, diabetes mellitus, GERD, hyperlipidemia, hypertension, pneumonia, sleep apnea, chronic pain in which she is on PainPump and cholecystectomy. Patient was recently admitted for fall and discharged to inpatient rehab. Patient reports that she went home and was doing well up until yesterday. UA was positive for leukocyte esterase. Urine culture has been ordered. Patient has been started on Rocephin for UTI. At this time patient is resting comfortably in bed. Patient reports she feels improved from yesterday. Patient denies chest pain or shortness breath. Patient reports she does not have any nausea or vomiting at this time. Patient is reporting urinary frequency. On 12/08/2018 patient is alert and oriented 3. At this time patient is still complaining of chronic lower back pain. Patient was evaluated by pain services. This time patient denies nausea vomiting or diarrhea. Patient denies any chest pain or shortness breath. Patient denies any urinary burning or frequency. On 12/09/2018 patient is alert and oriented 3. Patient is now complaining that she is having loose stools. Will order C. diff. Repeat EKG and 2-D echo per cardiology. Recommending DC'd all transient CT prolonged. Ultram will be DC'd. Patient denies chest pain or shortness breath. Patient denies nausea vomiting or diarrhea. Patient denies any urinary burning or frequency. Objective - Vital Signs Vital signs: Vital Signs Temp 97.5 F L 12/09/18 07:00 Pulse 56 L 12/09/18 07:00 Resp 16 12/09/18 07:00 BP 132/63 12/09/18 07:00 Pulse Ox 91 L 12/09/18 07:00 Intake & Output 12/08/18 12/09/18 12/09/18 18:59 06:59 18:59 Intake Total 640 200 Balance 640 200 Intake: Intake, IV Titration 100 Amount Magnesium Sulfate-D5w Pmx 100 1 gm In Dextrose/Water 1 100ml.bag @ 100 mls/hr IVPB Q1H [facility] Rx#: [id number] Oral 540 Other 200 Other: Voiding Method Toilet Toilet # Voids 2 2 3 - Exam Head normocephalic Neck supple Lungs clear to auscultation bilaterally no wheezing or crackles Heart regular rate and rhythm S1-S2, no rub or gallop Abdomen is soft nontender nondistended positive bowel sounds no hepato splenomegaly Extremities no edema Neuro alert and orientated to 3 - Labs CBC & Chem 7: 12/09/18 07:30 12/09/18 07:30 Labs: Abnormal Lab Results - Last 24 Hours (Table) 12/08/18 12/08/18 12/08/18 Range/Units 07:15 16:53 20:35 Hgb (11.4-16.0) gm/dL MCHC (31.0-37.0) g/dL RDW (11.5-15.5) % Chloride (98-107) mmol/L POC Glucose (mg/dL) 137 H 102 H (75-99) mg/dL Hemoglobin A1c 7.4 H (4.0-6.0) % Albumin (3.5-5.0) g/dL 12/09/18 12/09/18 12/09/18 Range/Units 07:03 07:30 07:30 Hgb 11.2 L (11.4-16.0) gm/dL MCHC 30.8 L (31.0-37.0) g/dL RDW 15.7 H (11.5-15.5) % Chloride 110 H (98-107) mmol/L POC Glucose (mg/dL) 113 H (75-99) mg/dL Hemoglobin A1c (4.0-6.0) % Albumin 3.3 L (3.5-5.0) g/dL 12/09/18 Range/Units 11:26 Hgb (11.4-16.0) gm/dL MCHC (31.0-37.0) g/dL RDW (11.5-15.5) % Chloride (98-107) mmol/L POC Glucose (mg/dL) 144 H (75-99) mg/dL Hemoglobin A1c (4.0-6.0) % Albumin (3.5-5.0) g/dL Microbiology - Last 24 Hours (Table) 12/07/18 13:35 Urine Culture - Final Urine,Voided Assessment and Plan Assessment: 1. Increased weakness due to urinary tract infection. Urine culture ordered. Patient started on Rocephin. Ultrasound of kidneys renal and bladder completed showing no evidence for hydronephrosis no obvious a sizable shadowing renal calculi are seen. 2. Chronic back pain. Patient does have pain pump follows with Dr. Lewis. X-ray spine completed showing no acute fracture or malalignment of the cervical, thoracic or lumbar spine. Large bridging osteophytes platelets are present of the upper cervical spine, mild multilevel degenerative changes of the thoracic spine are seen in lower lumbar spine facet arthropathic the with postsurgical changes are noted. She was evaluated by pain services recommend restarting home Celebrex and Robaxin. 3. History of cholecystectomy 4. Diabetes mellitus type 2. Patient maintained on Lantus 30 units nightly plus sliding scale coverage 5. History of hypothyroidism 6. History of essential hypertension 7. History of sleep apnea 8. History of GERD 9. History of falls. Patient was recently discharged to inpatient rehab. 10. QT prolonged. EKG showing normal sinus rhythm nonspecific T-wave abnormality. Prolonged QT. Mona Robles. 2-D echo completed showing EF of 55- 60%. Per cardiology recommending decreasing all trimmed due to potential QT prolonged. Repeat CT interval decreasing to 444. Patient has been cleared for discharge from cardiology services patient to follow-up with Dr. Oneal in 2 weeks. 11. Diarrhea. C. diff sample will be ordered. DVT prophylaxis Lovenox. GI prophylaxis Protonix I performed an examination of the patient and discussed their management with the Nurse Practitioner. I have reviewed the Nurse Practitioner's notes and agree with the documented findings and plan of care
[2018-12-09 16:48] LABS: Glucose,Whole Blood 134 mg/dL (75-99)
[2018-12-09] MEDS: PANTOPRAZOLE 40 MG TABLET PO SCH (17:28)
[2018-12-09 20:30] LABS: Glucose,Whole Blood 121 mg/dL (75-99)
[2018-12-10] MEDS: METHOCARBAMOL 500 MG TAB PO PRN (00:07)
[2018-12-10] MEDS: LEVOTHYROXINE 75 MCG TAB PO SCH (07:27)
[2018-12-10 07:50] LABS: Glucose,Whole Blood 98 mg/dL (75-99)
[2018-12-10] MEDS: INSULIN ASPART (NovoLOG) 100 UNIT/ML VIAL SQ SCH ×2 (07:57→12:48)
[2018-12-10] MEDS: PATIENT'S OWN MED (Mirabegron [Myrbetriq] 50 MG) PO SCH (07:59)
[2018-12-10] MEDS: SENNOSIDES-DOCUSATE SODIUM 1 EACH TAB PO SCH (08:06)
[2018-12-10] MEDS: ENOXAPARIN 40 MG/0.4 ML SYRINGE SQ SCH (08:06)
[2018-12-10] MEDS: MELOXICAM 7.5 MG TAB PO SCH (08:06)
[2018-12-10] MEDS: ATORVASTATIN 80 MG TAB PO SCH (08:06)
[2018-12-10] MEDS: DULoxetine HCL 60 MG CAPSULE.DR PO SCH (08:07)
[2018-12-10] MEDS: VALSARTAN 40 MG TAB PO SCH (08:07)
[2018-12-10] MEDS: MONTELUKAST 10 MG TAB PO SCH (08:07)
[2018-12-10] MEDS: ASPIRIN 81 MG PO SCH (08:07)
[2018-12-10] MEDS: PANTOPRAZOLE 40 MG TABLET PO SCH (08:07)
[2018-12-10 08:12] VITALS: RESP 16
[2018-12-10] MEDS: INSULIN DETEMIR (LEVEMIR) 100 UNIT/ML SYR SQ SCH (08:12)
[2018-12-10 09:22] LABS: Anisocytosis Slight; Basophils % (A) 1 %; Eosinophils # (A) 0.3 k/uL (0-0.7); Eosinophils % (A) 5 %; HCT 37.4 % (34.0-46.0); HGB 11.5 gm/dL (11.4-16.0); Hypochromasia Moderate; Lymphocytes # (A) 1.7 k/uL (1.0-4.8); Lymphocytes % (A) 29 %; MCH 27.2 pg (25.0-35.0); MCHC 30.9 g/dL (31.0-37.0); MCV 88.2 fL (80.0-100.0); Mean Platelet Volume 7.2; Monocytes # (A) 0.3 k/uL (0-1.0); Monocytes % (A) 5 %; Neutrophils # (A) 3.4 k/uL (1.3-7.7); Neutrophils % (A) 59 %; Platelet Count 226 k/uL (150-450); RBC 4.24 m/uL (3.80-5.40); RDW 16.3 % (11.5-15.5); WBC 5.8 k/uL (3.8-10.6)
[2018-12-10 09:37] LABS: ALT 17 U/L (9-52); AST 16 U/L (14-36); Albumin 3.1 g/dL (3.5-5.0); Alkaline Phosphatase 76 U/L (38-126); Anion Gap 9 mmol/L; Blood Urea Nitrogen 9 mg/dL (7-17); Calcium 8.8 mg/dL (8.4-10.2); Carbon Dioxide 22 mmol/L (22-30); Chloride 110 mmol/L (98-107); Glucose 189 mg/dL (74-99); Potassium 4.5 mmol/L (3.5-5.1); Sodium 141 mmol/L (137-145); Total Bilirubin 0.3 mg/dL (0.2-1.3); Total Protein 6.2 g/dL (6.3-8.2)
--- NOTE | 2018-12-10 11:53 | P.DS ---
Providers Date of admission: 12/08/18 16:05 Expected date of discharge: 12/10/18 Attending physician: Lexie Craven Consults: 12/07/18 14:17 Consult Physician Routine Consulting Provider: Chaz Yeager Consult Reason/Comments: QT prolong Do you want consulting provider notified?: Yes 12/08/18 11:32 Consult Physician Routine Consulting Provider: Johnny Russo Consult Reason/Comments: evaluate for inpatient rehab Do you want consulting provider notified?: Yes Primary care physician: Annelise Rose Hospital Course: Discharge diagnosis 1. Increased weakness due to urinary tract infection. Patient started on Rocephin. Ultrasound of kidneys renal and bladder completed showing no evidence for hydronephrosis no obvious a sizable shadowing renal calculi are seen. Urine culture negative. No antibiotics upon discharge 2. Chronic back pain. Patient does have pain pump follows with Dr. Lewis. X-ray spine completed showing no acute fracture or malalignment of the cervical, thoracic or lumbar spine. Large bridging osteophytes platelets are present of the upper cervical spine, mild multilevel degenerative changes of the thoracic spine are seen in lower lumbar spine facet arthropathic the with postsurgical changes are noted. She was evaluated by pain services recommend restarting home Celebrex and Robaxin. 3. History of cholecystectomy 4. Diabetes mellitus type 2. Patient maintained on Lantus 30 units nightly plus sliding scale coverage 5. History of hypothyroidism 6. History of essential hypertension 7. History of sleep apnea 8. History of GERD 9. History of falls. Patient was recently discharged to inpatient rehab. 10. QT prolonged. EKG showing normal sinus rhythm nonspecific T-wave abnormality. Prolonged QT. Zofran DC'd. 2-D echo completed showing EF of 55- 60%. Per cardiology recommending discontinuing ultram due to potential QT prolonged. Repeat QT interval decreasing to 444. Patient has been cleared for discharge from cardiology services patient to follow-up with Dr. Oneal in 2 weeks. Ultram DC'd 11. Diarrhea. C. diff sample will be ordered. Resolved Hospital course This is a 68-year-old female patient of Dr. Rose. Patient presented with nausea vomiting and weakness. Patient reports that her urine was foul-smelling and thick. Patient denies any fevers at home. Patient does have a past medical history of breast cancer with left mastectomy, diabetes mellitus, GERD, hyperlipidemia, hypertension, pneumonia, sleep apnea, chronic pain in which she is on PainPump and cholecystectomy. Patient was recently admitted for fall and discharged to inpatient rehab. Patient reports that she went home and was doing well up until yesterday. UA was positive for leukocyte esterase. Urine culture has been ordered. Patient has been started on Rocephin for UTI. At this time patient is resting comfortably in bed. Patient reports she feels improved from yesterday. Patient denies chest pain or shortness breath. Patient reports she does not have any nausea or vomiting at this time. Patient is reporting urinary frequency. On 12/08/2018 patient is alert and oriented 3. At this time patient is still complaining of chronic lower back pain. Patient was evaluated by pain services. This time patient denies nausea vomiting or diarrhea. Patient denies any chest pain or shortness breath. Patient denies any urinary burning or frequency. On 12/09/2018 patient is alert and oriented 3. Patient is now complaining that she is having loose stools. Will order C. diff. Repeat EKG and 2-D echo per cardiology. Recommending DC'd all transient CT prolonged. Ultram will be DC'd. Patient denies chest pain or shortness breath. Patient denies nausea vomiting or diarrhea. Patient denies any urinary burning or frequency. On 12/10/2018 patient is alert and oriented 3. Patient expresses that she does feel ready to go home. Patient Ultram DC'd due to QT prolonged. Patient to follow up with cardiology service outpatient in 2 weeks. Patient's urine culture negative. SI patient denies chest pain or shortness breath. Patient denies nausea vomiting. Diarrhea has resolved. Patient denies any urinary burning or frequency. Patient advised to follow-up with Dr. Lewis for her pain management. I performed an examination of the patient and discussed their management with the Nurse Practitioner. I have reviewed the Nurse Practitioner's notes and agree with the documented findings and plan of care Patient Condition at Discharge: Stable Plan - Discharge Summary New Discharge Prescriptions: Continue Aspirin EC [Ecotrin Low Dose] 81 mg PO DAILY Methocarbamol [Robaxin] 500 mg PO BID PRN PRN Reason: Pain Rosuvastatin Calcium [Crestor] 40 mg PO DAILY Levothyroxine Sodium [Synthroid] 75 mcg PO DAILY Valsartan [Diovan] 40 mg PO DAILY Celecoxib [CeleBREX] 200 mg PO DAILY Montelukast [Singulair] 10 mg PO DAILY Mirabegron [Myrbetriq] 50 mg PO DAILY DULoxetine HCL [Cymbalta] 60 mg PO DAILY Nocdurna 27.7 mcg SUBLINGUAL HS Ibuprofen [Motrin Ib] 200 mg PO Q6H PRN PRN Reason: Pain Morphine Pain Pump 1 dose INTRATHECA CONTINUOUS Sennosides-Docusate Sodium [Senokot-S] 2 tab PO BID #120 tablet Pantoprazole [Protonix] 40 mg PO BID 30 Days #60 tablet. Insulin Glarisaías,Hum.rec.anlog [Lantus Solostar] 30 unit SQ DAILY #0 INSULIN ASPART (NovoLOG) [NovoLOG (formulary)] See Protocol SQ ACHS Discontinued traMADol HCL [Ultram] 50 mg PO DAILY PRN PRN Reason: Pain Discharge Medication List Aspirin EC [Ecotrin Low Dose] 81 mg PO DAILY 04/22/16 [History] Methocarbamol [Robaxin] 500 mg PO BID PRN 04/22/16 [History] Rosuvastatin Calcium [Crestor] 40 mg PO DAILY 06/02/16 [History] Levothyroxine Sodium [Synthroid] 75 mcg PO DAILY 11/01/17 [History] Celecoxib [CeleBREX] 200 mg PO DAILY 06/21/18 [History] DULoxetine HCL [Cymbalta] 60 mg PO DAILY 06/21/18 [History] Mirabegron [Myrbetriq] 50 mg PO DAILY 06/21/18 [History] Montelukast [Singulair] 10 mg PO DAILY 06/21/18 [History] Valsartan [Diovan] 40 mg PO DAILY 06/21/18 [History] Nocdurna 27.7 mcg SUBLINGUAL HS 08/20/18 [History] Ibuprofen [Motrin Ib] 200 mg PO Q6H PRN 09/15/18 [History] Morphine Pain Pump 1 dose INTRATHECA CONTINUOUS 10/27/18 [History] Sennosides-Docusate Sodium [Senokot-S] 2 tab PO BID #120 tablet 10/29/18 [Rx] Insulin Glargine,Hum.rec.anlog [Lantus Solostar] 30 unit SQ DAILY #0 11/01/18 [Rx] Pantoprazole [Protonix] 40 mg PO BID 30 Days #60 tablet. 11/01/18 [Rx] INSULIN ASPART (NovoLOG) [NovoLOG (formulary)] See Protocol SQ ACHS 12/06/18 [History] Follow up Appointment(s)/Referral(s): Roz Oneal MD [STAFF PHYSICIAN] - 2 Weeks [facility], [NON-STAFF] - Annelise Rose DO [Primary Care Provider] - 1-2 days Activity/Diet/Wound Care/Special Instructions: Activity as tolerated Diet heart healthy
[2018-12-10 11:59] LABS: Glucose,Whole Blood 179 mg/dL (75-99)
[2018-12-10 16:07] VITALS: BP 127/76; PULSE 72; TEMP 98.3
== END 2018-12-10 16:18 | disposition home health service (06) | DRG 690 ==
LOC: EC 12:07 → 4SSUR 15:37 → OBSVTOIN 12-08 16:05
PROVIDERS: ADMIT Internal Medicine; ATTEND Internal Medicine
DX: N39.0 Urinary tract infection, site not specified (principal); E83.42 Hypomagnesemia; R13.10 Dysphagia, unspecified; I45.81 Long QT syndrome; E03.9 Hypothyroidism, unspecified; E11.9 Type 2 diabetes mellitus without complications; E78.5 Hyperlipidemia, unspecified; G47.33 Obstructive sleep apnea (adult) (pediatric); G89.4 Chronic pain syndrome; I10 Essential (primary) hypertension; K21.9 Gastro-esophageal reflux disease without esophagitis; M25.78 Osteophyte, vertebrae; M54.5 Low back pain; R26.2 Difficulty in walking, not elsewhere classified; M54.2 Cervicalgia; E86.0 Dehydration; R19.7 Diarrhea, unspecified; M51.34 Other intervertebral disc degeneration, thoracic region; Z79.4 Long term (current) use of insulin; Z79.82 Long term (current) use of aspirin; Z79.890 Hormone replacement therapy; Z79.899 Other long term (current) drug therapy; Z98.82 Breast implant status; Z91.81 History of falling; Z91.19 Patient's noncompliance with other medical treatment and regimen; Z90.710 Acquired absence of both cervix and uterus; Z90.49 Acquired absence of other specified parts of digestive tract; Z90.12 Acquired absence of left breast and nipple; Z85.3 Personal history of malignant neoplasm of breast; Z86.14 Personal history of Methicillin resistant Staphylococcus aureus infection; Z87.01 Personal history of pneumonia (recurrent); Z87.440 Personal history of urinary (tract) infections; Z88.1 Allergy status to other antibiotic agents; Z88.5 Allergy status to narcotic agent; Z88.2 Allergy status to sulfonamides; Z98.1 Arthrodesis status
CPT/HCPCS: 36415; 72082; 76770; 80048; 80053; 81001; 83036; 83605; 83735; 83880; 84100; 84484; 85025; 85610; 85730; 87086; 93005; 93308; 96361; 96365; 96375

== ENCOUNTER 2018-12-29 13:19 | Emergency (ER) | payer MEDICARE, OTHER ==
[2018-12-29] MEDS ORDERED: HYDROmorphone 1 MG/ML 1 ML SYRINGE IM STA (14:04)
[2018-12-29] MEDS ORDERED: METOCLOPRAMIDE 5 MG/ML 2 ML VIAL IM STA (14:04)
--- NOTE | 2018-12-29 14:11 | ED ---
General Adult HPI - General Chief complaint: Back Pain/Injury Stated complaint: Back pain Time Seen by Provider: 12/29/18 13:56 Source: patient, RN notes reviewed Mode of arrival: wheelchair Limitations: physical limitation - History of Present Illness Initial comments: Patient is a pleasant 68-year-old female presenting to the emergency Department with complaints of back pain. Onset of symptoms was chronic, years ago. Patient has had 9 previous back surgeries. Patient has not previously seen orthopedic doctor. Patient states her pain is bilateral sciatic pain. Patient states she did have a pain pump implanted without any improvement of symptoms. Patient is having nausea that she associates with her pain. No abdominal pain. No weakness or incontinence. - Related Data Home Medications Medication Instructions Recorded Confirmed Aspirin EC [Ecotrin Low Dose] 81 mg PO DAILY 04/22/16 12/06/18 Methocarbamol [Robaxin] 500 mg PO BID PRN 04/22/16 12/06/18 Rosuvastatin Calcium [Crestor] 40 mg PO DAILY 06/02/16 12/06/18 Levothyroxine Sodium [Synthroid] 75 mcg PO DAILY 11/01/17 12/06/18 Celecoxib [CeleBREX] 200 mg PO DAILY 06/21/18 12/06/18 DULoxetine HCL [Cymbalta] 60 mg PO DAILY 06/21/18 12/06/18 Mirabegron [Myrbetriq] 50 mg PO DAILY 06/21/18 12/06/18 Montelukast [Singulair] 10 mg PO DAILY 06/21/18 12/06/18 Valsartan [Diovan] 40 mg PO DAILY 06/21/18 12/06/18 Nocdurna 27.7 mcg SUBLINGUAL HS 08/20/18 12/06/18 Ibuprofen [Motrin Ib] 200 mg PO Q6H PRN 09/15/18 12/06/18 Morphine Pain Pump 1 dose INTRATHECA CONTINUOUS 10/27/18 12/06/18 INSULIN ASPART (NovoLOG) [NovoLOG See Protocol SQ ACHS 12/06/18 12/06/18 (formulary)] Previous Rx's Medication Instructions Recorded Sennosides-Docusate Sodium 2 tab PO BID #120 tablet 10/29/18 [Senokot-S] Insulin Glargine,Hum.rec.anlog 30 unit SQ DAILY #0 11/01/18 [Lantus Solostar] Pantoprazole [Protonix] 40 mg PO BID 30 Days #60 tablet. 11/01/18 Allergies Allergy/AdvReac Type Severity Reaction Status Date / Time neomycin Allergy Itching Verified 12/29/18 13:35 Sulfa (Sulfonamide Allergy Dyspnea Verified 12/29/18 13:35 Antibiotics) sulfamethoxazole Allergy Dyspnea Verified 12/29/18 13:35 [From ] trimethoprim [From ] Allergy Dyspnea Verified 12/29/18 13:35 codeine AdvReac headache Verified 12/29/18 13:35 morphine AdvReac Itching Verified 12/29/18 13:35 Review of Systems ROS Statement: Those systems with pertinent positive or pertinent negative responses have been documented in the HPI. ROS Other: All systems not noted in ROS Statement are negative. Constitutional: Denies: fever Eyes: Denies: eye pain ENT: Denies: ear pain Respiratory: Denies: cough Cardiovascular: Denies: chest pain Endocrine: Denies: fatigue Gastrointestinal: Reports: nausea. Denies: abdominal pain Genitourinary: Denies: dysuria Musculoskeletal: Reports: as per HPI, back pain Skin: Denies: rash Neurological: Denies: weakness Past Medical History Past Medical History: Cancer, Diabetes Mellitus, GERD/Reflux, Hyperlipidemia, Hypertension, Pneumonia, Sleep Apnea/CPAP/BIPAP Additional Past Medical History / Comment(s): Pt recently admitted 08/22/18 with pneumonia/sepsis possible aspiration pne, N/V, UTI, hyperkalemia and constipation. Other Hx: IDDM type II, chronic low back pain radiates to L leg/has pain pump, herniated discs, colitis, black stools, L breast cancer with mastectomy, irregular heart beat once, JANENE with Cpap, dysphagia, hypothyroid, constipation. History of Any Multi-Drug Resistant Organisms: MRSA Date of last positivie culture/infection: 04/02/17 MDRO Source:: URINE Past Surgical History: Back Surgery, Breast Surgery, Cholecystectomy, Hysterectomy Additional Past Surgical History / Comment(s): Lt Mastectomy W/ RECONSTRUCTION; RT BREAST IMPLANT. SINUS SURG X3., colonoscopy, pain pump implant Past Anesthesia/Blood Transfusion Reactions: Previous Problems w/ Anesthesia Additional Past Anesthesia/Blood Transfusion Reaction / Comment(s): HX OF DAMAGE TO VOCAL CORDS POST-OP BACK SURGERY Past Psychological History: No Psychological Hx Reported Smoking Status: Never smoker Past Alcohol Use History: None Reported Past Drug Use History: None Reported - Past Family History Father Sister(s) Family Medical History: Cancer Additional Family Medical History / Comment(s): Father had leukemia and sister had pancreatic cancer. Brother(s) Family Medical History: Cancer Additional Family Medical History / Comment(s): Prostate cancer, ANEURYSM Mother History Unknown: Yes Family Medical History: No Reported History Additional Family Medical History / Comment(s): Mother was healthy. General Exam Limitations: physical limitation General appearance: alert, in no apparent distress Head exam: Present: atraumatic Eye exam: Present: normal appearance Neck exam: Present: normal inspection Respiratory exam: Present: normal lung sounds bilaterally Cardiovascular Exam: Present: regular rate, normal rhythm Expanded Peripheral pulses: 2+: Dorsalis Pedis (R), Dorsalis Pedis (L) GI/Abdominal exam: Present: soft. Absent: tenderness Extremities exam: Present: normal inspection Neurological exam: Present: alert. Absent: motor sensory deficit Expanded Speech: Present: fluid speech Sensory exam: Lower Extremity Light Touch: Normal Motor strength exam: RLE: 5, LLE: 5 Psychiatric exam: Present: normal affect, normal mood Skin exam: Present: normal color Course Vital Signs 12/29/18 13:33 Temperature 98.4 F Pulse Rate 95 Respiratory 20 Rate Blood Pressure 105/57 O2 Sat by Pulse 99 Oximetry - Reevaluation(s) Reevaluation #1: 12/29/18 14:09 Patient does feel like medication for pain and nausea and orthopedic follow-up is a good idea. Disposition Clinical Impression: Sciatica Disposition: HOME SELF-CARE Condition: Stable Instructions (If sedation given, give patient instructions): Chronic Back Pain (ED) Additional Instructions: Please follow-up to primary care physician and neurologist in the next couple days for recheck. Please also follow-up with orthopedics, number provided. Return for weakness, loss of control of bowel or bladder, worsening symptoms or other concerns. Is patient prescribed a controlled substance at d/c from ED?: No Referrals: Annelise Rose DO [Primary Care Provider] - 1-2 days Bronson Rojas DO [Doctor of Osteopathic Medicine] - 1-2 days Time of Disposition: 14:11
[2018-12-29 15:11] VITALS: BP 101/59; PULSE 70; RESP 16; TEMP 98
== END 2018-12-29 15:31 | disposition home or self-care (01) ==
LOC: EC 13:19
DX: M54.32 Sciatica, left side (principal); M54.31 Sciatica, right side; R11.0 Nausea; E11.9 Type 2 diabetes mellitus without complications; K21.9 Gastro-esophageal reflux disease without esophagitis; E78.5 Hyperlipidemia, unspecified; I10 Essential (primary) hypertension; G47.33 Obstructive sleep apnea (adult) (pediatric); E03.9 Hypothyroidism, unspecified; Z79.82 Long term (current) use of aspirin; Z79.890 Hormone replacement therapy; Z79.899 Other long term (current) drug therapy; Z79.4 Long term (current) use of insulin; Z88.1 Allergy status to other antibiotic agents; Z88.2 Allergy status to sulfonamides; Z88.5 Allergy status to narcotic agent; Z85.3 Personal history of malignant neoplasm of breast; Z90.12 Acquired absence of left breast and nipple
CPT/HCPCS: 99283; 96372 ×2; J2765; J1170

== ENCOUNTER 2019-01-12 07:11 | Day surgery (SDC) | payer MEDICARE, OTHER ==
[2019-01-06 18:12] VITALS: BMI 27.4
[2019-01-12 07:32] VITALS: TEMP 97
[2019-01-12 07:41] LABS: Glucose,Whole Blood 214 mg/dL (75-99)
[2019-01-12] MEDS ORDERED: LIDOCAINE 1% INJ 10MG/ML (20 ML MDV) ONE (07:49)
[2019-01-12] MEDS ORDERED: PROPOFOL 10 MG/ML 20 ML VIAL IV ONE (07:49)
--- NOTE | 2019-01-12 07:53 | P.GSHP ---
History of Present Illness H&P Date: 01/12/19 Chief Complaint: GERD This is a 68-year-old female who presents today for EGD. She's had issues with GERD. Past Medical History Past Medical History: Cancer, Diabetes Mellitus, GERD/Reflux, Hyperlipidemia, Hypertension, Musculoskeletal Disorder, Pneumonia, Sleep Apnea/CPAP/BIPAP, Thyroid Disorder Additional Past Medical History / Comment(s): 08/22/18 pneumonia/sepsis poss aspiration pne. HX N/V, UTI, hyperkalemia, constipation; IDDM type II, chronic low back pain radiates to L leg/has pain pump, herniated discs, old hx colitis/black stools, L breast cancer w/ mastectomy 2003, irreg heart beat X1, JANENE with Cpap, dysphagia, hypothyroid. DYSPHAGIA CURRENTLY. History of Any Multi-Drug Resistant Organisms: MRSA Date of last positivie culture/infection: 04/02/17 MDRO Source:: URINE Past Surgical History: Back Surgery, Breast Surgery, Cholecystectomy, Hysterectomy Additional Past Surgical History / Comment(s): Lt Mastectomy W/ RECONSTRUCTION; RT BREAST IMPLANT. SINUS SURG X3., colonoscopy, pain pump implant Past Anesthesia/Blood Transfusion Reactions: Previous Problems w/ Anesthesia Additional Past Anesthesia/Blood Transfusion Reaction / Comment(s): HX OF DAMAGE TO VOCAL CORDS POST-OP BACK SURGERY Smoking Status: Never smoker - Past Family History Father Sister(s) Family Medical History: Cancer Additional Family Medical History / Comment(s): Father had leukemia and sister had pancreatic cancer. Brother(s) Family Medical History: Cancer Additional Family Medical History / Comment(s): Prostate cancer, ANEURYSM Mother History Unknown: Yes Family Medical History: No Reported History Additional Family Medical History / Comment(s): Mother was healthy. Medications and Allergies Home Medications Medication Instructions Recorded Confirmed Type Aspirin EC [Ecotrin Low Dose] 81 mg PO DAILY 04/22/16 01/06/19 History Methocarbamol [Robaxin] 500 mg PO BID PRN 04/22/16 01/12/19 History Levothyroxine Sodium [Synthroid] 50 mcg PO DAILY 11/01/17 01/12/19 History DULoxetine HCL [Cymbalta] 60 mg PO DAILY PRN 06/21/18 01/12/19 History Montelukast [Singulair] 10 mg PO HS 06/21/18 01/12/19 History Dilaudud Pain Pump 1 dose INTRATHECA CONTINUOUS 12/29/18 01/12/19 History Esomeprazole Magnesium [NexIUM] 40 mg PO DAILY 12/29/18 01/12/19 History Insulin Glargine [Lantus] 60 unit SQ DAILY 12/29/18 01/12/19 History Liraglutide [Victoza 3-Dread] 1.8 mg SQ DAILY 12/29/18 01/12/19 History metFORMIN HCL 1,000 mg PO BID 12/29/18 01/12/19 History traMADol HCL [Ultram] 50 mg PO DAILY PRN 12/29/18 01/06/19 History Mirabegron [Myrbetriq] 50 mg PO DAILY 01/06/19 01/12/19 History Allergies Allergy/AdvReac Type Severity Reaction Status Date / Time neomycin Allergy Itching Verified 01/12/19 07:27 Sulfa (Sulfonamide Allergy Dyspnea Verified 01/12/19 07:27 Antibiotics) sulfamethoxazole Allergy Dyspnea Verified 01/12/19 07:27 [From ] trimethoprim [From ] Allergy Dyspnea Verified 01/12/19 07:27 codeine AdvReac headache Verified 01/12/19 07:27 morphine AdvReac Itching Verified 01/12/19 07:27 Surgical - Exam Vital Signs Temp Pulse Resp BP Pulse Ox 97.0 F L 88 18 151/68 94 L 01/12/19 07:29 01/12/19 07:29 01/12/19 07:29 01/12/19 07:29 01/12/19 07:29 - General well developed, well nourished, no distress - Eyes PERRL - ENT normal pinna - Neck no masses - Respiratory normal expansion - Cardiovascular Rhythm: regular - Abdomen Abdomen: soft, non tender Results - Labs Abnormal Lab Results - Last 24 Hours (Table) 01/12/19 Range/Units 07:33 POC Glucose (mg/dL) 214 H (75-99) mg/dL Assessment and Plan Assessment: GERD. We'll perform EGD.
--- NOTE | 2019-01-12 08:02 | P.OP ---
Date of Procedure: 01/12/19 Preoperative Diagnosis: GERD Postoperative Diagnosis: Antral gastritis Procedure(s) Performed: EGD Anesthesia: MAC Surgeon: Colby Pickering Pathology: other (Antrum, esophagus) Condition: stable Disposition: PACU Description of Procedure: The patient's placed on the endoscopy table in the lateral position. She received IV sedation. The gastric was placed oropharynx passed in the esophagus. And then into the stomach. The scope was then placed through the pylorus. The first and second portion of duodenum appeared normal. Scope was then brought back the antrum this appeared mildly inflamed. A biopsies performed. The scope was then retroflexed and remainder the stomach appeared normal. There was no significant hiatal hernia. The GE junction was at 40 cm. The distal esophagus was minimal inflamed and a biopsies performed. The proximal esophagus appeared normal. Scope was withdrawn from patient. There is no significant reflux seen. Patient scheduled for esophagram upper GI due to her chronic reflux symptoms. Patient will follow-up the office after this is performed.
[2019-01-12 08:10] VITALS: RESP 16
[2019-01-12 08:12] LABS: Glucose,Whole Blood 207 mg/dL (75-99)
[2019-01-12 08:33] VITALS: BP 109/59; PULSE 75
== END 2019-01-12 09:09 | disposition home or self-care (01) ==
LOC: ORWHC2ENDO 07:11
PROVIDERS: ATTEND Surgery
DX: K29.50 Unspecified chronic gastritis without bleeding (principal); K21.0 Gastro-esophageal reflux disease with esophagitis; E11.9 Type 2 diabetes mellitus without complications; G47.33 Obstructive sleep apnea (adult) (pediatric); E78.5 Hyperlipidemia, unspecified; R13.10 Dysphagia, unspecified; M54.5 Low back pain; K59.00 Constipation, unspecified; G89.29 Other chronic pain; E03.9 Hypothyroidism, unspecified; Z87.01 Personal history of pneumonia (recurrent); Z86.19 Personal history of other infectious and parasitic diseases; Z85.3 Personal history of malignant neoplasm of breast; Z90.12 Acquired absence of left breast and nipple; Z86.14 Personal history of Methicillin resistant Staphylococcus aureus infection; Z99.89 Dependence on other enabling machines and devices; Z97.8 Presence of other specified devices; Z90.49 Acquired absence of other specified parts of digestive tract; Z88.1 Allergy status to other antibiotic agents; Z88.5 Allergy status to narcotic agent; Z88.2 Allergy status to sulfonamides; Z90.710 Acquired absence of both cervix and uterus; Z79.82 Long term (current) use of aspirin; Z79.899 Other long term (current) drug therapy; Z79.890 Hormone replacement therapy; Z79.891 Long term (current) use of opiate analgesic; Z80.6 Family history of leukemia; Z80.42 Family history of malignant neoplasm of prostate; Z80.0 Family history of malignant neoplasm of digestive organs
CPT/HCPCS: 43239; J2001; J2704; 88305

== ENCOUNTER → 2019-01-13 | Outpatient (CLI) | payer MEDICARE, OTHER ==
--- NOTE | 2019-01-13 12:57 | CT ---
EXAMINATION TYPE: CT abdomen pelvis wo/w con DATE OF EXAM: 01/13/2019 COMPARISON: 08/21/2018 INDICATION: Urinary incontinence and flank pain DLP: 1443.5 mGycm, Automated exposure control for dose reduction was used. CONTRAST: 100 mL of Isovue 300. Study performed with Oral Contrast TECHNIQUE: Axial images were obtained from above the diaphragm to the pubic rami in the axial plane a t 5 mm thick sections. Reconstructed images are reviewed on the computer in the coronal plane. FINDINGS: Limited CT sections are obtained the lung bases. The lung bases are clear. Small amount of reflux i n the distal esophagus is evident. CT ABDOMEN: Liver: Normal Spleen: Normal Pancreas: Normal Adrenal glands: The adrenal glands are normal. Gallbladder: Surgically absent Kidneys: No masses are evident. No hydronephrosis is present. No cysts are present. Delayed images were obtained through the kidneys, which remain unremarkable. No renal stones are evident noncontras t portion of the study. Aorta: Vascular calcification is within the aorta. Inferior vena cava: Normal. CT PELVIS: Electronic device overlies left pelvis. Loops of bowel within the abdomen and pelvis are normal. There are loops of bowel which are incom pletely distended or lack oral contrast limiting their evaluation. Appendix: Normal as visualized No suspicious inflammatory changes are evident. Urinary bladder: Normal. Genitourinary structures: Uterus and ovaries are not identified. Osseous structures: No suspicious lytic or sclerotic lesions. IMPRESSIONS: 1. Gastroesophageal reflux. 2. No suspicious abnormality to suggest renal or ureteral stones.
== END | disposition home or self-care (01) ==
LOC: RADCTMAIN 10:16
PROVIDERS: ATTEND Surgery
DX: K21.9 Gastro-esophageal reflux disease without esophagitis (principal)
CPT/HCPCS: 82565; 84520; 74178; 36415; Q9967

== ENCOUNTER → 2019-01-20 | Outpatient (CLI) | payer MEDICARE, OTHER ==
--- NOTE | 2019-01-20 11:03 | FL ---
EXAMINATION TYPE: FL UGI w esophagus DATE OF EXAM: 01/20/2019 COMPARISON: CT dated 01/13/2019 HISTORY: Gastroesophageal reflux and vomiting. Recent endoscopy with no abnormal findings to patient history. TECHNIQUE: A double contrast UGI study is performed. Fluoroscopy time of 2.07 minutes. 52 fluoroscop ic images were saved. FINDINGS: The esophagus shows abnormal motility as there are tertiary contractions throughout the exam with no delay of emptying into the stomach. No evidence of stricture noted. Very small sliding-type hiatal h ernia is seen. The stomach shows normal distensibility and peristalsis however there are diffusely thickened gastric rugal folds. No evidence of any mass or ulcer disease. Mild gastroesophageal reflux was seen during real time performance of this study. Posterior osteophytes of the thoracic spine creating minimal imp ression upon the descending esophagus. The duodenal bulb, sweep, and proximal small bowel loops are unremarkable. IMPRESSION: 1. Abnormal esophageal motility with tertiary contractions throughout the exam typically related to p resbyesophagus but also can be seen in neuromuscular disorders. 2. Diffusely thickened rugal folds may relate to gastritis. 3. Mild degree gastroesophageal reflux. 4. Very small sliding-type hiatal hernia seen on the supine position only.
== END | disposition home or self-care (01) ==
LOC: RADUSWWP 08:56
PROVIDERS: ATTEND Surgery
DX: K21.9 Gastro-esophageal reflux disease without esophagitis (principal); K44.9 Diaphragmatic hernia without obstruction or gangrene; K22.8 Other specified diseases of esophagus
CPT/HCPCS: 74240

== ENCOUNTER 2019-03-13 23:39 | Observation (INO) | payer MEDICARE, OTHER ==
--- NOTE | 2019-03-14 00:15 | ED ---
Nausea/Vomiting/Diarrhea HPI - General Chief complaint: Nausea/Vomiting/Diarrhea Stated complaint: Vomiting Time Seen by Provider: 03/14/19 00:02 Source: patient, RN notes reviewed, old records reviewed Mode of arrival: ambulatory Limitations: no limitations - History of Present Illness Initial comments: This is a 68-year-old female the ER for evaluation. Patient presents for evaluation of significant nausea vomiting diarrhea. History of same. Pers istent vomiting no fevers no bowel pain no chest pain no shortness of breath. No recent change in medications. Multiple recent hospital admissions. Patient states she cannot keep anything down feeling everything keeps getting caught, she is unable to eat or drink also having diarrhea. No prior antibiotic use. MD complaint: nausea, vomiting, diarrhea -: hour(s) Description of Vomiting: food contents, watery Description of Diarrhea: water, mucous Associated Abdominal Pain: No Severity: moderate Severity scale (1-10): 5 Consistency: intermittent Improves with: none Worsens with: none Associated Symptoms: loss of appetite, malaise, nausea/vomiting, weakness - Related Data Home Medications Medication Instructions Recorded Confirmed Aspirin EC [Ecotrin Low Dose] 81 mg PO DAILY 04/22/16 01/06/19 Methocarbamol [Robaxin] 500 mg PO BID PRN 04/22/16 01/12/19 Levothyroxine Sodium [Synthroid] 50 mcg PO DAILY 11/01/17 01/12/19 DULoxetine HCL [Cymbalta] 60 mg PO DAILY PRN 06/21/18 01/12/19 Montelukast [Singulair] 10 mg PO HS 06/21/18 01/12/19 Dilaudud Pain Pump 1 dose INTRATHECA CONTINUOUS 12/29/18 01/12/19 Esomeprazole Magnesium [NexIUM] 40 mg PO DAILY 12/29/18 01/12/19 Insulin Glargine [Lantus] 60 unit SQ DAILY 12/29/18 01/12/19 Liraglutide [Victoza 3-Dread] 1.8 mg SQ DAILY 12/29/18 01/12/19 metFORMIN HCL 1,000 mg PO BID 12/29/18 01/12/19 traMADol HCL [Ultram] 50 mg PO DAILY PRN 12/29/18 01/06/19 Mirabegron [Myrbetriq] 50 mg PO DAILY 01/06/19 01/12/19 Allergies Allergy/AdvReac Type Severity Reaction Status Date / Time neomycin Allergy Itching Verified 03/13/19 23:58 Sulfa (Sulfonamide Allergy Dyspnea Verified 03/13/19 23:58 Antibiotics) sulfamethoxazole Allergy Dyspnea Verified 03/13/19 23:58 [From ] trimethoprim [From ] Allergy Dyspnea Verified 03/13/19 23:58 codeine AdvReac headache Verified 03/13/19 23:58 morphine AdvReac Itching Verified 03/13/19 23:58 Review of Systems ROS Statement: Those systems with pertinent positive or pertinent negative responses have been documented in the HPI. ROS Other: All systems not noted in ROS Statement are negative. Past Medical History Past Medical History: Cancer, Diabetes Mellitus, GERD/Reflux, Hyperlipidemia, Hypertension, Musculoskeletal Disorder, Pneumonia, Sleep Apnea/CPAP/BIPAP, Thyroid Disorder Additional Past Medical History / Comment(s): 08/22/18 pneumonia/sepsis poss aspiration pne. HX N/V, UTI, hyperkalemia, constipation; IDDM type II, chronic low back pain radiates to L leg/has pain pump, herniated discs, old hx colitis/black stools, L breast cancer w/ mastectomy 2003, irreg heart beat X1, JANENE with Cpap, dysphagia, hypothyroid. DYSPHAGIA CURRENTLY. History of Any Multi-Drug Resistant Organisms: MRSA Date of last positivie culture/infection: 04/02/17 MDRO Source:: URINE Past Surgical History: Back Surgery, Breast Surgery, Cholecystectomy, Hysterectomy Additional Past Surgical History / Comment(s): Lt Mastectomy W/ RECONSTRUCTION; RT BREAST IMPLANT. SINUS SURG X3., colonoscopy, pain pump implant, stents in back for bladder incontinence. Past Anesthesia/Blood Transfusion Reactions: Previous Problems w/ Anesthesia Additional Past Anesthesia/Blood Transfusion Reaction / Comment(s): HX OF DAMAGE TO VOCAL CORDS POST-OP BACK SURGERY Past Psychological History: No Psychological Hx Reported Smoking Status: Never smoker Past Alcohol Use History: Rare Past Drug Use History: None Reported - Past Family History Father Sister(s) Family Medical History: Cancer Additional Family Medical History / Comment(s): Father had leukemia and sister had pancreatic cancer. Brother(s) Family Medical History: Cancer Additional Family Medical History / Comment(s): Prostate cancer, ANEURYSM Mother History Unknown: Yes Family Medical History: No Reported History Additional Family Medical History / Comment(s): Mother was healthy. General Exam Limitations: no limitations General appearance: alert, in no apparent distress Head exam: Present: atraumatic, normocephalic, normal inspection Eye exam: Present: normal appearance, PERRL, EOMI. Absent: scleral icterus, conjunctival injection, periorbital swelling ENT exam: Present: normal exam, mucous membranes moist Neck exam: Present: normal inspection. Absent: tenderness, meningismus, lymphadenopathy Respiratory exam: Present: normal lung sounds bilaterally. Absent: respiratory distress, wheezes, rales, rhonchi, stridor Cardiovascular Exam: Present: regular rate, normal rhythm, normal heart sounds. Absent: systolic murmur, diastolic murmur, rubs, gallop, clicks GI/Abdominal exam: Present: soft, normal bowel sounds. Absent: distended, tenderness, guarding, rebound, rigid Extremities exam: Present: normal inspection, full ROM, normal capillary refill. Absent: tenderness, pedal edema, joint swelling, calf tenderness Back exam: Present: normal inspection Neurological exam: Present: alert, oriented X3, CN II-XII intact Psychiatric exam: Present: normal affect, normal mood Skin exam: Present: warm, dry, intact, normal color. Absent: rash Course Vital Signs 03/13/19 23:55 Temperature 98.3 F Pulse Rate 74 Respiratory 18 Rate Blood Pressure 120/49 O2 Sat by Pulse 96 Oximetry Medical Decision Making - Medical Decision Making 68-year-old female the ER for evaluation nausea vomiting diarrhea, patient does not for comfortable being discharged secondary persistent nausea and unable to tolerate oral intake. Patient can be admitted for IV fluid and nothing by mouth - Lab Data Result diagrams: 03/14/19 00:53 03/14/19 00:53 Lab Results 03/14/19 03/14/19 03/14/19 Range/Units 00:53 00:53 02:04 WBC 9.0 (3.8-10.6) k/uL RBC 4.49 (3.80-5.40) m/uL Hgb 12.1 (11.4-16.0) gm/dL Hct 38.5 (34.0-46.0) % MCV 85.7 (80.0-100.0) fL MCH 26.8 (25.0-35.0) pg MCHC 31.3 (31.0-37.0) g/dL RDW 16.9 H (11.5-15.5) % Plt Count 279 (150-450) k/uL Neutrophils % 71 % Lymphocytes % 18 % Monocytes % 6 % Eosinophils % 4 % Basophils % 1 % Neutrophils # 6.4 (1.3-7.7) k/uL Lymphocytes # 1.6 (1.0-4.8) k/uL Monocytes # 0.5 (0-1.0) k/uL Eosinophils # 0.3 (0-0.7) k/uL Basophils # 0.1 (0-0.2) k/uL Anisocytosis Slight Sodium 140 (137-145) mmol/L Potassium 4.4 (3.5-5.1) mmol/L Chloride 104 (98-107) mmol/L Carbon Dioxide 28 (22-30) mmol/L Anion Gap 8 mmol/L BUN 14 (7-17) mg/dL Creatinine 0.67 (0.52-1.04) mg/dL Est GFR (CKD-EPI)AfAm >90 (>60 ml/min/1.73 sqM) Est GFR (CKD-EPI)NonAf >90 (>60 ml/min/1.73 sqM) Glucose 214 H (74-99) mg/dL Calcium 9.3 (8.4-10.2) mg/dL Phosphorus 4.0 (2.5-4.5) mg/dL Magnesium 1.7 (1.6-2.3) mg/dL Total Bilirubin 0.2 (0.2-1.3) mg/dL AST 20 (14-36) U/L ALT <6 L (9-52) U/L Alkaline Phosphatase 107 (38-126) U/L Total Protein 7.4 (6.3-8.2) g/dL Albumin 3.9 (3.5-5.0) g/dL Lipase 105 (23-300) U/L Urine Color Yellow Urine Appearance Clear (Clear) Urine pH 5.5 (5.0-8.0) Ur Specific [place] 1.019 (1.001-1.035) Urine Protein Trace H (Negative) Urine Glucose (UA) 4+ H (Negative) Urine Ketones Negative (Negative) Urine Blood Negative (Negative) Urine Nitrite Negative (Negative) Urine Bilirubin Negative (Negative) Urine Urobilinogen <2.0 (<2.0) mg/dL Ur Leukocyte Esterase Small H (Negative) Urine RBC 2 (0-5) /hpf Urine WBC 6 H (0-5) /hpf Ur Squamous Epith Cells 1 (0-4) /hpf Urine Bacteria Rare H (None) /hpf Urine Mucus Rare H (None) /hpf - EKG Data -: EKG Interpreted by Me (EKG shows sinus tachycardia rate of) Disposition Clinical Impression: Constipation, Intractable vomiting, Weakness, Gastritis, Chronic pain syndrome, Chronic constipation Disposition: ADMITTED IP TO THIS HOSP Condition: Fair Is patient prescribed a controlled substance at d/c from ED?: No Referrals: Annelise Rose DO [Primary Care Provider] - 1-2 days
[2019-03-14] MEDS ORDERED: SODIUM CHLORIDE 0.9% 1,000 ML IV STA ×2 (00:25)
[2019-03-14] MEDS ORDERED: SODIUM CHLORIDE 0.9% 500 ML 500 ML IV STA (00:25)
[2019-03-14] MEDS ORDERED: ONDANSETRON 4 MG/2 ML VIAL IVP STA (00:25)
[2019-03-14] MEDS ORDERED: PANTOPRAZOLE 40 MG/10 ML VIAL IVP STA (00:26)
[2019-03-14 01:37] LABS: Anisocytosis Slight; Basophils # (A) 0.1 k/uL (0-0.2); Basophils % (A) 1 %; Eosinophils # (A) 0.3 k/uL (0-0.7); Eosinophils % (A) 4 %; HCT 38.5 % (34.0-46.0); HGB 12.1 gm/dL (11.4-16.0); Lymphocytes # (A) 1.6 k/uL (1.0-4.8); Lymphocytes % (A) 18 %; MCH 26.8 pg (25.0-35.0); MCHC 31.3 g/dL (31.0-37.0); MCV 85.7 fL (80.0-100.0); Mean Platelet Volume 7.1; Monocytes # (A) 0.5 k/uL (0-1.0); Monocytes % (A) 6 %; Neutrophils # (A) 6.4 k/uL (1.3-7.7); Neutrophils % (A) 71 %; Platelet Count 279 k/uL (150-450); RBC 4.49 m/uL (3.80-5.40); RDW 16.9 % (11.5-15.5)
[2019-03-14 01:42] LABS: ALT <6 U/L (9-52); AST 20 U/L (14-36); African American GFR (CKD) >90 (>60 ml/min/1.73 sqM); Albumin 3.9 g/dL (3.5-5.0); Alkaline Phosphatase 107 U/L (38-126); Anion Gap 8 mmol/L; Blood Urea Nitrogen 14 mg/dL (7-17); Calcium 9.3 mg/dL (8.4-10.2); Carbon Dioxide 28 mmol/L (22-30); Chloride 104 mmol/L (98-107); Glucose 214 mg/dL (74-99); Magnesium 1.7 mg/dL (1.6-2.3); Potassium 4.4 mmol/L (3.5-5.1); Sodium 140 mmol/L (137-145); Total Bilirubin 0.2 mg/dL (0.2-1.3); Total Protein 7.4 g/dL (6.3-8.2)
[2019-03-14 02:37] LABS: Appearance,Urine Clear (Clear); Bacteria,Urine Rare /hpf; Bilirubin,Urine Negative (Negative); Blood,Urine Negative (Negative); Color,Urine Yellow; Glucose,Urine (UA) 4+ (Negative); Ketones,Urine Negative (Negative); Leukocyte Esterase,Urine Small (Negative); Mucus,Urine Rare /hpf; Nitrite,Urine Negative (Negative); PH, Urine 5.5 (5.0-8.0); Protein,Urine Trace (Negative); RBC,Urine 2 /hpf (0-5); Specific Gravity,Urine 1.019 (1.001-1.035); Squamous Epithelial Cell,Urine 1 /hpf (0-4); Urobilinogen,Urine <2.0 mg/dL (<2.0); WBC,Urine 6 /hpf (0-5)
[2019-03-14] MEDS ORDERED: ONDANSETRON 4 MG/2 ML VIAL IVP PRN (02:41)
[2019-03-14] MEDS ORDERED: HYDROmorphone 1 MG/ML 1 ML SYRINGE IVP STA (02:44)
[2019-03-14 06:57] LABS: Glucose,Whole Blood 104 mg/dL (75-99)
[2019-03-14] MEDS: HYDROmorphone 1 MG/ML 1 ML SYRINGE IVP PRN ×2 (07:43→12:58)
[2019-03-14] MEDS ORDERED: ACETAMINOPHEN TAB 325 MG TAB PO PRN (10:43)
[2019-03-14 11:43] LABS: Glucose,Whole Blood 138 mg/dL (75-99)
[2019-03-14 17:18] LABS: Glucose,Whole Blood 130 mg/dL (75-99)
[2019-03-14] MEDS ORDERED: METHOCARBAMOL 500 MG TAB PO PRN (17:32)
[2019-03-14] MEDS ORDERED: DULoxetine HCL 60 MG CAPSULE.DR PO PRN (17:32)
[2019-03-14] MEDS ORDERED: traMADol 50 MG TAB PO PRN (17:32)
[2019-03-14] MEDS ORDERED: HYOSCYAMINE SULFATE 0.125 MG TAB PO PRN (17:36)
[2019-03-14] MEDS: PANTOPRAZOLE 40 MG TABLET PO SCH (18:32)
[2019-03-14] MEDS: VALSARTAN 40 MG TAB PO SCH (18:32)
[2019-03-14 19:52] LABS: Glucose,Whole Blood 223 mg/dL (75-99)
[2019-03-14] MEDS: INSULIN ASPART (NovoLOG) 100 UNIT/ML VIAL SQ SCH (20:50)
[2019-03-14] MEDS ORDERED: MONTELUKAST 10 MG TAB PO SCH (21:00)
[2019-03-14] MEDS ORDERED: ATORVASTATIN 80 MG TAB PO SCH (21:00)
--- NOTE | 2019-03-14 21:05 | P.HPIM ---
History of Present Illness H&P Date: 03/14/19 Daja Herman is a 68 yo F with PMH significant for breast cancer s/p mastectomy, chronic pain with intrathecal pain pump in place, T2DM, GERD, HTN who presented to the ED with intractable nausea, vomiting, and diarrhea. She states she eats a regular diet at home but tried to have a hot dog yesterday and since then had been unable to keep anything down at all and threw up more than 8 times before coming in to the ED. She notes that ever since getting her pain pump approx 6 months ago she has had recurrent nausea and vomiting. She does complain of severe constant low back pain. Denies fevers, chills, or cramping abdominal pain. In the ED blood work was unremarkable. This am, she continues to feel nauseated but denies any further vomiting. Review of Systems All systems: negative Constitutional: Reports malaise, Denies chills, Denies fever Eyes: denies blurred vision, denies pain Ears, nose, mouth and throat: Denies headache, Denies sore throat Cardiovascular: Denies chest pain, Denies shortness of breath Respiratory: Denies cough Gastrointestinal: Reports loss of appetite, Reports nausea, Reports vomiting, Denies abdominal pain, Denies diarrhea Genitourinary: Denies dysuria, Denies hematuria Musculoskeletal: Denies myalgias Integumentary: Denies pruritus, Denies rash Neurological: Denies numbness, Denies weakness Psychiatric: Denies anxiety, Denies depression Endocrine: Denies fatigue, Denies weight change Past Medical History Past Medical History: Cancer, Diabetes Mellitus, GERD/Reflux, Hyperlipidemia, Hypertension, Musculoskeletal Disorder, Pneumonia, Sleep Apnea/CPAP/BIPAP, Thyroid Disorder Additional Past Medical History / Comment(s): 08/22/18 pneumonia/sepsis poss aspi ration pne. HX N/V, UTI, hyperkalemia, constipation; IDDM type II, chronic low back pain radiates to L leg/has pain pump, herniated discs, old hx colitis/black stools, L breast cancer w/ mastectomy 2003, irreg heart beat X1, JANENE with Cpap, dysphagia, hypothyroid. DYSPHAGIA History of Any Multi-Drug Resistant Organisms: MRSA Date of last positivie culture/infection: 04/02/17 MDRO Source:: URINE Past Surgical History: Back Surgery, Breast Surgery, Cholecystectomy, Hysterectomy Additional Past Surgical History / Comment(s): Lt Mastectomy W/ RECONSTRUCTION; RT BREAST IMPLANT. SINUS SURG X3., colonoscopy, pain pump implant, stents in back for bladder incontinence. Past Anesthesia/Blood Transfusion Reactions: No Reported Reaction Additional Past Anesthesia/Blood Transfusion Reaction / Comment(s): HX OF DAMAGE TO VOCAL CORDS POST-OP BACK SURGERY Past Psychological History: No Psychological Hx Reported Additional Psychological History / Comment(s): Pt resides with her spouse. She uses a cane or walker to ambulate. She has a pain pump d/t back pain. She has a glucometer. She recently established with [facility]. Smoking Status: Never smoker Past Alcohol Use History: Rare Past Drug Use History: None Reported - Past Family History Father Sister(s) Family Medical History: Cancer Additional Family Medical History / Comment(s): Father had leukemia and sister had pancreatic cancer. Brother(s) Family Medical History: Cancer Additional Family Medical History / Comment(s): Prostate and throat cancer Mother History Unknown: Yes Family Medical History: No Reported History Additional Family Medical History / Comment(s): Brain aneurysm Medications and Allergies Home Medications Medication Instructions Recorded Confirmed Type Aspirin EC [Ecotrin Low Dose] 81 mg PO DAILY 04/22/16 03/14/19 History Methocarbamol [Robaxin] 500 mg PO BID PRN 04/22/16 03/14/19 History DULoxetine HCL [Cymbalta] 60 mg PO DAILY PRN 06/21/18 03/14/19 History Montelukast [Singulair] 10 mg PO HS 06/21/18 03/14/19 History Dilaudud Pain Pump 1 dose INTRATHECA CONTINUOUS 12/29/18 03/14/19 History Esomeprazole Magnesium [NexIUM] 40 mg PO DAILY 12/29/18 03/14/19 History Liraglutide [Victoza 3-Dread] 1.8 mg SQ DAILY 12/29/18 03/14/19 History metFORMIN HCL 1,000 mg PO BID 12/29/18 03/14/19 History traMADol HCL [Ultram] 50 mg PO DAILY PRN 12/29/18 03/14/19 History Mirabegron [Myrbetriq] 50 mg PO DAILY 01/06/19 03/14/19 History Canagliflozin [Invokana] 100 mg PO DAILY 03/14/19 03/14/19 History Celecoxib [CeleBREX] 200 mg PO DAILY 03/14/19 03/14/19 History Ezetimibe [Zetia] 10 mg PO HS 03/14/19 03/14/19 History Ibuprofen [Motrin Ib] 200 mg PO BID PRN 03/14/19 03/14/19 History Insulin NPL/Insulin Lispro 48 units SQ BID@0800,1700 03/14/19 03/14/19 History [humaLOG MIX 75-25 VIAL] Levothyroxine Sodium [Synthroid] 50 mcg PO DAILY 03/14/19 03/14/19 History Rosuvastatin Calcium [Crestor] 40 mg PO HS 03/14/19 03/14/19 History Valsartan [Diovan] 40 mg PO DAILY 03/14/19 03/14/19 History Allergies Allergy/AdvReac Type Severity Reaction Status Date / Time neomycin Allergy Itching Verified 03/14/19 08:32 Sulfa (Sulfonamide Allergy Dyspnea Verified 03/14/19 08:32 Antibiotics) sulfamethoxazole Allergy Dyspnea Verified 03/14/19 08:32 [From ] trimethoprim [From ] Allergy Dyspnea Verified 03/14/19 08:32 codeine AdvReac headache Verified 03/14/19 08:32 morphine AdvReac Itching Verified 03/14/19 08:32 Physical Exam Vitals: Vital Signs Temp Pulse Pulse Resp BP BP Pulse Ox 03/14/19 19:20 98.1 F 67 15 99/51 97 03/14/19 16:00 97.4 F L 68 17 146/76 93 L 03/14/19 12:00 73 16 03/14/19 08:00 73 16 03/14/19 07:40 98.1 F 73 16 116/74 91 L 03/14/19 03:53 98.2 F 74 16 130/85 95 03/14/19 03:09 98.0 F 70 16 119/80 97 03/13/19 23:55 98.3 F 74 18 120/49 96 Intake and Output 03/14/19 03/14/19 03/14/19 06:59 14:59 22:59 Intake Total 300 Balance 300 Intake: Intake, IV Titration 300 Amount Sodium Chloride 0.9% 1, 300 000 ml @ 100 mls/hr IV . Q10H STA Rx#:[id number] Other: Voiding Method Toilet Toilet # Voids 4 Weight 76.204 kg Constitutional: well developed, well nourished, NAD. Vitals reviewed HENT: normocephalic, mucus membranes moist Neck: supple, no thyromegaly Lymph: no cervical or axillary LAD CV: RRR, no murmur Lungs: normal respiratory effort, clear throughout Neuro: alert and oriented x3, DTRs 2+ Abd: soft, no organomegly. TTP epigastric Psych: normal mood and affect Results CBC & Chem 7: 03/14/19 00:53 03/14/19 00:53 Labs: Abnormal Lab Results - Last 24 Hours (Table) 03/14/19 03/14/19 03/14/19 Range/Units 00:53 00:53 02:04 RDW 16.9 H (11.5-15.5) % Glucose 214 H (74-99) mg/dL POC Glucose (mg/dL) (75-99) mg/dL ALT <6 L (9-52) U/L Urine Protein Trace H (Negative) Urine Glucose (UA) 4+ H (Negative) Ur Leukocyte Esterase Small H (Negative) Urine WBC 6 H (0-5) /hpf Urine Bacteria Rare H (None) /hpf Urine Mucus Rare H (None) /hpf 03/14/19 03/14/19 03/14/19 Range/Units 06:57 11:41 17:17 RDW (11.5-15.5) % Glucose (74-99) mg/dL POC Glucose (mg/dL) 104 H 138 H 130 H (75-99) mg/dL ALT (9-52) U/L Urine Protein (Negative) Urine Glucose (UA) (Negative) Ur Leukocyte Esterase (Negative) Urine WBC (0-5) /hpf Urine Bacteria (None) /hpf Urine Mucus (None) /hpf 03/14/19 Range/Units 19:51 RDW (11.5-15.5) % Glucose (74-99) mg/dL POC Glucose (mg/dL) 223 H (75-99) mg/dL ALT (9-52) U/L Urine Protein (Negative) Urine Glucose (UA) (Negative) Ur Leukocyte Esterase (Negative) Urine WBC (0-5) /hpf Urine Bacteria (None) /hpf Urine Mucus (None) /hpf Thrombosis Risk Factor Assmnt - Choose All That Apply Any of the Below Risk Factors Present?: Yes Each Factor Represents 1 point: Obesity (BMI >25), Swollen legs (current) Other Risk Factors: Yes Each Risk Factor Represents 2 Points: Age 61-74 years Each Risk Factor Represents 3 Points: Family history of DVT/PE, History of DVT/PE Other congenital or acquired thrombophilia - If yes, enter type in comment: No Thrombosis Risk Factor Assessment Total Risk Factor Score: 10 Thrombosis Risk Factor Assessment Level: High Risk Assessment and Plan (1) T2DM (type 2 diabetes mellitus) Current Visit: Yes Status: Acute Code(s): E11.9 - TYPE 2 DIABETES MELLITUS WITHOUT COMPLICATIONS SNOMED Code(s): 97805169 (2) Chronic pain syndrome Current Visit: Yes Status: Acute Code(s): G89.4 - CHRONIC PAIN SYNDROME SNOMED Code(s): 744912285 (3) Intractable vomiting Current Visit: Yes Status: Acute Code(s): R11.10 - VOMITING, UNSPECIFIED SNOMED Code(s): 412687968 (4) Epigastric pain Current Visit: No Status: Acute Code(s): R10.13 - EPIGASTRIC PAIN SNOMED Code(s): 58718187 Plan: 1. Intractable vomiting. With history of same. Suspect secondary to intrathecal pain pump. S/p 3 L IVF. Advance diet today. Protonix. Zofran prn 2. Chronic pain. Continue cymbalta. Resume home tramadol 3. T2DM. Levemir 50 U and sliding scale
[2019-03-15] MEDS ORDERED: LEVOTHYROXINE 50 MCG TAB PO SCH (06:30)
[2019-03-15 06:42] LABS: Glucose,Whole Blood 132 mg/dL (75-99)
[2019-03-15] MEDS ORDERED: INSULIN DETEMIR (LEVEMIR) 100 UNIT/ML SYR SQ SCH (07:00)
[2019-03-15] MEDS: INSULIN ASPART (NovoLOG) 100 UNIT/ML VIAL SQ SCH (07:31)
[2019-03-15] MEDS: VALSARTAN 40 MG TAB PO SCH (08:22)
[2019-03-15] MEDS: PANTOPRAZOLE 40 MG TABLET PO SCH (08:22)
[2019-03-15 08:30] VITALS: BP 116/70; PULSE 70; RESP 18; TEMP 98.4
[2019-03-15] MEDS ORDERED: MELOXICAM 7.5 MG TAB PO SCH (09:00)
--- NOTE | 2019-03-15 14:08 | P.DS ---
Providers Date of admission: 03/14/19 02:42 Expected date of discharge: 03/15/19 Attending physician: Espinoza Lujan MD Primary care physician: Annelise Rose - Discharge Diagnosis(es) (1) T2DM (type 2 diabetes mellitus) Status: Acute (2) Chronic pain syndrome Status: Acute (3) Intractable vomiting Status: Acute (4) Epigastric pain Status: Acute Hospital Course: Daja Herman is a 68 yo F with PMH significant for breast cancer s/p mastectomy, chronic pain with intrathecal pain pump in place, T2DM, GERD, HTN who presented to the ED with intractable nausea, vomiting, and diarrhea. She states she eats a regular diet at home but tried to have a hot dog yesterday and since then had been unable to keep anything down at all and threw up more than 8 times before coming in to the ED. She notes that ever since getting her pain pump approx 6 months ago she has had recurrent nausea and vomiting. She does complain of severe constant low back pain. Denies fevers, chills, or cramping abdominal pain. In the ED blood work was unremarkable. Pt was admitted and started on clear liquid diet. She tolerated this well and her diet was advanced. No further vomiting in the hospital and nausea controlled with zofran. She did continue to experience abdominal pain which was controlled with dilaudid initially and later levsin. By 03/15 she had resumed regular diet without difficulty. She is recommended to follow up with PCP and consider referral to tertiary care center for removal of dilaudid pain pump. Gen: well developed, well nourished NAD HENT: mucus membranes moist CV: RRR Lungs: CTAB Abd: generalized TTP Patient Condition at Discharge: Fair Plan - Discharge Summary New Discharge Prescriptions: New Hyoscyamine Sulfate [Levsin] 0.125 mg PO Q4H PRN #12 tab PRN Reason: abdominal pain Continue Aspirin EC [Ecotrin Low Dose] 81 mg PO DAILY Methocarbamol [Robaxin] 500 mg PO BID PRN PRN Reason: Pain Montelukast [Singulair] 10 mg PO HS DULoxetine HCL [Cymbalta] 60 mg PO DAILY PRN PRN Reason: Pain traMADol HCL [Ultram] 50 mg PO DAILY PRN PRN Reason: Pain metFORMIN HCL 1,000 mg PO BID Liraglutide [Victoza 3-Dread] 1.8 mg SQ DAILY Esomeprazole Magnesium [NexIUM] 40 mg PO DAILY Dilaudud Pain Pump 1 dose INTRATHECA CONTINUOUS Mirabegron [Myrbetriq] 50 mg PO DAILY Insulin NPL/Insulin Lispro [humaLOG MIX 75-25 VIAL] 48 units SQ BID@0800,1700 Valsartan [Diovan] 40 mg PO DAILY Celecoxib [CeleBREX] 200 mg PO DAILY Canagliflozin [Invokana] 100 mg PO DAILY Rosuvastatin Calcium [Crestor] 40 mg PO HS Ezetimibe [Zetia] 10 mg PO HS Levothyroxine Sodium [Synthroid] 50 mcg PO DAILY Ibuprofen [Motrin Ib] 200 mg PO BID PRN PRN Reason: Pain Discharge Medication List Aspirin EC [Ecotrin Low Dose] 81 mg PO DAILY 04/22/16 [History] Methocarbamol [Robaxin] 500 mg PO BID PRN 04/22/16 [History] DULoxetine HCL [Cymbalta] 60 mg PO DAILY PRN 06/21/18 [History] Montelukast [Singulair] 10 mg PO HS 06/21/18 [History] Dilaudud Pain Pump 1 dose INTRATHECA CONTINUOUS 12/29/18 [History] Esomeprazole Magnesium [NexIUM] 40 mg PO DAILY 12/29/18 [History] Liraglutide [Victoza 3-Dread] 1.8 mg SQ DAILY 12/29/18 [History] metFORMIN HCL 1,000 mg PO BID 12/29/18 [History] traMADol HCL [Ultram] 50 mg PO DAILY PRN 12/29/18 [History] Mirabegron [Myrbetriq] 50 mg PO DAILY 01/06/19 [History] Canagliflozin [Invokana] 100 mg PO DAILY 03/14/19 [History] Celecoxib [CeleBREX] 200 mg PO DAILY 03/14/19 [History] Ezetimibe [Zetia] 10 mg PO HS 03/14/19 [History] Ibuprofen [Motrin Ib] 200 mg PO BID PRN 03/14/19 [History] Insulin NPL/Insulin Lispro [humaLOG MIX 75-25 VIAL] 48 units SQ BID@0800,1700 03/14/19 [History] Levothyroxine Sodium [Synthroid] 50 mcg PO DAILY 03/14/19 [History] Rosuvastatin Calcium [Crestor] 40 mg PO HS 03/14/19 [History] Valsartan [Diovan] 40 mg PO DAILY 03/14/19 [History] Hyoscyamine Sulfate [Levsin] 0.125 mg PO Q4H PRN #12 tab 03/15/19 [Rx] Follow up Appointment(s)/Referral(s): Annelise Rose DO [Primary Care Provider] - 1-2 days Discharge Disposition: HOME SELF-CARE
== END 2019-03-15 12:23 | disposition home or self-care (01) ==
LOC: EC 23:39 → 1SOBS 03-14 02:42
PROVIDERS: ADMIT Family Medicine; ATTEND Family Medicine
DX: R11.2 Nausea with vomiting, unspecified (principal); M54.5 Low back pain; R19.7 Diarrhea, unspecified; Z85.3 Personal history of malignant neoplasm of breast; K21.9 Gastro-esophageal reflux disease without esophagitis; I10 Essential (primary) hypertension; E11.9 Type 2 diabetes mellitus without complications; E03.9 Hypothyroidism, unspecified; R13.10 Dysphagia, unspecified; G47.33 Obstructive sleep apnea (adult) (pediatric); G89.4 Chronic pain syndrome; E78.5 Hyperlipidemia, unspecified; K59.09 Other constipation; Z90.12 Acquired absence of left breast and nipple; Z87.440 Personal history of urinary (tract) infections; Z97.8 Presence of other specified devices; Z99.89 Dependence on other enabling machines and devices; Z90.710 Acquired absence of both cervix and uterus; Z90.49 Acquired absence of other specified parts of digestive tract; Z98.82 Breast implant status; Z79.891 Long term (current) use of opiate analgesic; Z86.14 Personal history of Methicillin resistant Staphylococcus aureus infection; Z87.01 Personal history of pneumonia (recurrent); Z79.1 Long term (current) use of non-steroidal anti-inflammatories (NSAID); Z79.4 Long term (current) use of insulin; Z79.82 Long term (current) use of aspirin; Z79.890 Hormone replacement therapy; Z79.899 Other long term (current) drug therapy; Z80.0 Family history of malignant neoplasm of digestive organs; Z80.6 Family history of leukemia; Z80.8 Family history of malignant neoplasm of other organs or systems
CPT/HCPCS: 96361 ×3; 96376; 96374; 96375; 99285; 36415; 80053; 83690; 83735; 84100; 85025; 81001; G0378 ×2; J2405; J1170; C9113

== ENCOUNTER 2019-05-20 16:05 | Emergency (ER) | payer MEDICARE, OTHER ==
[2019-05-20] MEDS ORDERED: ceFAZolin 1,000 MG VIAL (IM USE) IM STA (16:24)
[2019-05-20] MEDS ORDERED: DIPH,PERTUS(ACELL)TETVAC-LF 0.5 ML VIAL IM ONE (16:25)
[2019-05-20] MEDS ORDERED: HYDROcodone/APAP 5-325MG 1 EACH TAB PO STA (16:29)
--- NOTE | 2019-05-20 16:36 | ED ---
Wound/Laceration HPI - General Chief Complaint: Wound/Laceration Stated Complaint: Hand Lac Time Seen by Provider: 05/20/19 16:24 Source: patient Mode of arrival: wheelchair Limitations: no limitations - History of Present Illness Initial Comments: Pleasant 69-year-old female presenting for chief complaint of left hand laceration to the thumb and index finger just prior to arrival. Patient states that she was using her saw to cut piece of wood for a plant when she slipped cutting her left thumb over the dorsal aspect as well as the base of the index finger. Patient states she is unable to range distally at the left thumb with extension, has some limitation of range of motion at the index finger. Patient states due to extensive laceration and she presented to the emergency department for further evaluation. Patient states her applied pressure bandage to control bleeding. Patient denies any other areas of injury. Patient is unsure of her last tetanus vaccination. Remaining review of systems negative. Upon arrival patient appears well signs of acute distress. - Related Data Home Medications Medication Instructions Recorded Confirmed Aspirin EC [Ecotrin Low Dose] 81 mg PO DAILY 04/22/16 03/14/19 Methocarbamol [Robaxin] 500 mg PO BID PRN 04/22/16 03/14/19 DULoxetine HCL [Cymbalta] 60 mg PO DAILY PRN 06/21/18 03/14/19 Montelukast [Singulair] 10 mg PO HS 06/21/18 03/14/19 Dilaudud Pain Pump 1 dose INTRATHECA CONTINUOUS 12/29/18 03/14/19 Esomeprazole Magnesium [NexIUM] 40 mg PO DAILY 12/29/18 03/14/19 Liraglutide [Victoza 3-Dread] 1.8 mg SQ DAILY 12/29/18 03/14/19 metFORMIN HCL 1,000 mg PO BID 12/29/18 03/14/19 traMADol HCL [Ultram] 50 mg PO DAILY PRN 12/29/18 03/14/19 Mirabegron [Myrbetriq] 50 mg PO DAILY 01/06/19 03/14/19 Canagliflozin [Invokana] 100 mg PO DAILY 03/14/19 03/14/19 Celecoxib [CeleBREX] 200 mg PO DAILY 03/14/19 03/14/19 Ezetimibe [Zetia] 10 mg PO HS 03/14/19 03/14/19 Ibuprofen [Motrin Ib] 200 mg PO BID PRN 03/14/19 03/14/19 Insulin NPL/Insulin Lispro 48 units SQ BID@0800,1700 03/14/19 03/14/19 [humaLOG MIX 75-25 VIAL] Levothyroxine Sodium [Synthroid] 50 mcg PO DAILY 03/14/19 03/14/19 Rosuvastatin Calcium [Crestor] 40 mg PO HS 03/14/19 03/14/19 Valsartan [Diovan] 40 mg PO DAILY 03/14/19 03/14/19 Previous Rx's Medication Instructions Recorded Hyoscyamine Sulfate [Levsin] 0.125 mg PO Q4H PRN #12 tab 03/15/19 Cephalexin [Keflex] 500 mg PO Q6HR 7 Days #28 cap 05/20/19 Allergies Allergy/AdvReac Type Severity Reaction Status Date / Time neomycin Allergy Itching Verified 05/20/19 16:09 Sulfa (Sulfonamide Allergy Dyspnea Verified 05/20/19 16:09 Antibiotics) sulfamethoxazole Allergy Dyspnea Verified 05/20/19 16:09 [From ] trimethoprim [From ] Allergy Dyspnea Verified 05/20/19 16:09 codeine AdvReac headache Verified 05/20/19 16:09 morphine AdvReac Itching Verified 05/20/19 16:09 Review of Systems ROS Statement: Those systems with pertinent positive or pertinent negative responses have been documented in the HPI. ROS Other: All systems not noted in ROS Statement are negative. Past Medical History Past Medical History: Cancer, Diabetes Mellitus, GERD/Reflux, Hyperlipidemia, Hypertension, Musculoskeletal Disorder, Pneumonia, Sleep Apnea/CPAP/BIPAP, Thyroid Disorder Additional Past Medical History / Comment(s): 08/22/18 pneumonia/sepsis poss aspiration pne. HX N/V, UTI, hyperkalemia, constipation; IDDM type II, chronic low back pain radiates to L leg/has pain pump, herniated discs, old hx colitis/black stools, L breast cancer w/ mastectomy 2003, irreg heart beat X1, JANENE with Cpap, dysphagia, hypothyroid. DYSPHAGIA History of Any Multi-Drug Resistant Organisms: MRSA Date of last positivie culture/infection: 04/02/17 MDRO Source:: URINE Past Surgical History: Back Surgery, Breast Surgery, Cholecystectomy, Hysterectomy Additional Past Surgical History / Comment(s): Lt Mastectomy W/ RECONSTRUCTION; RT BREAST IMPLANT. SINUS SURG X3., colonoscopy, pain pump implant, stents in back for bladder incontinence. Past Anesthesia/Blood Transfusion Reactions: No Reported Reaction Additional Past Anesthesia/Blood Transfusion Reaction / Comment(s): HX OF DAMAGE TO VOCAL CORDS POST-OP BACK SURGERY Past Psychological History: No Psychological Hx Reported Smoking Status: Never smoker Past Alcohol Use History: Rare Past Drug Use History: None Reported - Past Family History Father Sister(s) Family Medical History: Cancer Additional Family Medical History / Comment(s): Father had leukemia and sister had pancreatic cancer. Brother(s) Family Medical History: Cancer Additional Family Medical History / Comment(s): Prostate and throat cancer Mother History Unknown: Yes Family Medical History: No Reported History Additional Family Medical History / Comment(s): Brain aneurysm General Exam - General Exam Comments Initial Comments: General: The patient is awake and alert, in no distress, and does not appear acutely ill. Eye: Pupils are equal, round and reactive to light, extra-ocular movements are intact. No nystagmus. There is normal conjunctiva bilaterally. No signs of icterus. Ears, nose, mouth and throat: There are moist mucous membranes and no oral lesions. Neck: The neck is supple, there is no tenderness or JVD. Cardiovascular: There is a regular rate and rhythm. No murmur, rub or gallop is appreciated. Respiratory: Lungs are clear to auscultation, respirations are non-labored, breath sounds are equal. No wheezes, stridor, rales, or rhonchi. Musculoskeletal: Upon inspection of the left hand there was rings in place (removed and given to the patients bedside). Patient has large laceration with fixed flex position of the left thumb, dosral laceration. Obviously lacerated tendon (appears torn into pieces. Patient can feel distal to the IP joint of left thumb, <3 second capillary refill. Patient has full ROM at the PIP and DIP joitns of the left index finge however there appears to be slight limitation at the MCP joint of the index finger. THere is a u shaped laceration on the dorsal/radial side of the left index finger, deep no obvious tendon exposure. No FB noted. patient has full ROM at the MCP, PIP and DIP joints of the remaining digits of the left hand and no other appreciated lacertions/abrasions. Normal ROM, no tenderness the wrist joint. Strength 5/5. Sensation intact. Radial pulses equal bilaterally 2+. Neurological: A&O x 3. CN II-XII intact grossly, There are no obvious motor or sensory deficits. Coordination appears grossly intact. Speech is normal. Skin: Skin is warm and dry and no rashes or lesions are noted. Psychiatric: Cooperative, appropriate mood & affect, normal judgment. Limitations: no limitations Course Vital Signs 05/20/19 05/20/19 16:06 19:42 Temperature 98.5 F 98.2 F Pulse Rate 94 78 Respiratory 18 20 Rate Blood Pressure 163/91 189/86 O2 Sat by Pulse 95 97 Oximetry Procedures - Laceration Laceration #1 Consent Obtained: verbal consent Indication: laceration Site: hand (left thumb dorsal aspect) Size (cm): 2 Description: irregular Depth: involves tendon Anesthetic Used: lidocaine 1% Anesthesia Technique: nerve block Amount (mls): 3 Pre-repair: wound explored, irrigated extensively Type of Sutures: nylon Size of Sutures: 5-0 Number of Sutures: 6 Technique: simple, interrupted Patient Tolerated Procedure: well, no complications Additional Comments: Irrigated extensively 1L, iodine used for cleansing. Tendon exposed. Obvious tendon injury. Patient bandaged and splinted following loose approximation of skin edges (orthopedic recommendation) patient splintedin extension at the IP joint. Laceration #2 Consent Obtained: verbal consent Indication: laceration Site: hand (left index finger (dorsal/radial side of digit)) Size (cm): 1 (1.5) Description: irregular Depth: simple, single layer Anesthetic Used: lidocaine 1% Anesthesia Technique: local infiltration Amount (mls): 2 Pre-repair: irrigated extensively, deep structures intact (appear intact no obvious exposure or tendon injury) Size of Sutures: 5-0 Number of Sutures: 8 Technique: simple, interrupted Patient Tolerated Procedure: well, no complications Additional Comments: irrigated, cleansed with iodine, no obvious tendon injury however there is slight limitations in ROM at the left MCP joint--possibilty of occult tendon laceration. Edges approximated well and splint applied. Medical Decision Making - Medical Decision Making 69-year-old female presented for laceration of the left hand. Patient neurovascularly intact on initial exam. Tetanus was updated. Patient was given kefzol. Hx of diabetes. Patient had obvious tendon injury of the thumb extensor and cannot rule out an occult tendon injury. Patient xr did reveal a distal phalanx of the thumb--presumed open and obvious deformity of thumb consistent with a tendon injury. I reviewed imaging and discussed case with Dr. Valenzuela who consulted orthopedic outreach professional Dr. Willett he recommended loose approximation of wound edges of the thumb with splint in extension, outpatient antibiotics and f/u Thursday for surgical repair. Patient wound edges of thumb loosely approximated as instructed and patient splinted. Approximated wound edges of second laceration and splint was applied. Patient N/V intact folllowing repair, no change. Discussed the importance of antibiotics and return parameters with patient. patient has RX for tramadol outpatient at this time after discussing importance of follow-up, antibiotics and return parameters patient is ready for discharge she is agreeable discharged today. Discharged appearing well no other areas of injury noted Disposition Clinical Impression: Hand laceration, Laceration of hand involving extensor tendon, Thumb laceration, Pain of left thumb, Open fracture, Fracture of distal phalanx of finger of left hand Disposition: HOME SELF-CARE Condition: Good Instructions (If sedation given, give patient instructions): Care For Your Stitches (ED), Finger Laceration (ED), Tendon Laceration (ED) Additional Instructions: Please use medication as discussed. Please follow-up with orthopedic surgery on Thursday, please call office to schedule appointment at 8AM. Please return to emergency room if the symptoms increase or worsen or for any other concerns. Prescriptions: Cephalexin [Keflex] 500 mg PO Q6HR 7 Days #28 cap Is patient prescribed a controlled substance at d/c from ED?: No Referrals: Annelise Rose DO [Primary Care Provider] - 1-2 days Mukul Peter DO [Medical Doctor] - 1-2 days Time of Disposition: 19:18
--- NOTE | 2019-05-20 17:01 | XR ---
EXAMINATION TYPE: XR hand complete LT DATE OF EXAM: 05/20/2019 COMPARISON: NONE HISTORY: Laceration of the thumb TECHNIQUE: 3 views. FINDINGS: There is comminuted fracture of the base of the distal phalanx of the thumb. There is flexion deform ity. There is soft tissue laceration deformity on the dorsal aspect of the IP joint of the thumb. I s ee no foreign body. The fingers appear intact. There is mild anterior spurring of the DIP joints of t he fingers. IMPRESSION: Comminuted fracture of the distal phalanx of the thumb with laceration deformity and flex ion deformity consistent with significant tendon injury.
[2019-05-20] MEDS ORDERED: LIDOCAINE 1% INJ 10MG/ML (20 ML MDV) SQ ONE (17:10)
[2019-05-20] MEDS ORDERED: CEPHALEXIN 500MG STARTER PACK 4 CAP BTL PO STA (19:16)
[2019-05-20 19:43] VITALS: BP 189/86; PULSE 78; RESP 20; TEMP 98.2
== END 2019-05-20 19:52 | disposition home or self-care (01) ==
LOC: EC 16:05
DX: S61.012A Laceration without foreign body of left thumb without damage to nail, initial encounter (principal); S62.522B Displaced fracture of distal phalanx of left thumb, initial encounter for open fracture; Z23 Encounter for immunization; E11.9 Type 2 diabetes mellitus without complications; K21.9 Gastro-esophageal reflux disease without esophagitis; I10 Essential (primary) hypertension; E78.5 Hyperlipidemia, unspecified; E03.9 Hypothyroidism, unspecified; G47.33 Obstructive sleep apnea (adult) (pediatric); Z79.4 Long term (current) use of insulin; Z79.890 Hormone replacement therapy; Z79.82 Long term (current) use of aspirin; Z79.899 Other long term (current) drug therapy; Z88.1 Allergy status to other antibiotic agents; Z88.2 Allergy status to sulfonamides; Z88.5 Allergy status to narcotic agent; Z85.3 Personal history of malignant neoplasm of breast; Z90.12 Acquired absence of left breast and nipple; Z99.89 Dependence on other enabling machines and devices; W31.2XXA Contact with powered woodworking and forming machines, initial encounter
CPT/HCPCS: 73130; 90715; 99283; 12002; 90471; 96372; J0690; J2001

== ENCOUNTER 2019-05-27 11:11 | Day surgery (SDC) | payer MEDICARE, OTHER ==
[2019-05-26 11:19] VITALS: BMI 29.7
[~2019-05-27 11:11] MED LIST changes: +DEXAMETHASONE SOD PHOSPHATE 10 MG/ML 1 ML VIAL IV ONE; +HYDROmorphone 0.5 MG/0.5 ML SYRINGE IVP PRN; +MIDAZOLAM 2 MG/2 ML VIAL IV PRN; +ONDANSETRON 4 MG/2 ML VIAL IVP ONE; +SCOPOLAMINE 1.5MG/72HR PATCH TRANSDERM ONE
[2019-05-27 12:08] LABS: Glucose,Whole Blood 101 mg/dL (75-99)
[2019-05-27] MEDS ORDERED: DEXAMETHASONE SOD PHOSPHATE 4 MG/ML 1 ML VIAL ONE (12:35)
[2019-05-27] MEDS ORDERED: PROPOFOL 10 MG/ML 20 ML VIAL IV ONE (12:35)
[2019-05-27] MEDS ORDERED: diphenhydrAMINE 50 MG/ML 1 ML VIAL ONE (12:35)
[2019-05-27] MEDS ORDERED: MIDAZOLAM 2 MG/2 ML VIAL ONE (12:35)
[2019-05-27] MEDS ORDERED: ROPIVACAINE 5 MG/ML 30 ML VIAL ONE (12:35)
[2019-05-27] MEDS ORDERED: fentaNYL (PF) 50 MCG/ML 2 ML AMP ONE (12:35)
[2019-05-27] MEDS ORDERED: LIDOCAINE 1% INJ 10MG/ML (20 ML MDV) ONE (12:35)
[2019-05-27] MEDS ORDERED: LIDOCAINE 0.5% (PF) 5 MG/ML (50 ML SDV) SQ ONE (14:07)
[2019-05-27] MEDS ORDERED: ROPIVACAINE 5 MG/ML 30 ML VIAL MISCELLANE ONE (14:08)
[2019-05-27 14:39] VITALS: TEMP 97
--- NOTE | 2019-05-27 15:13 | FL ---
EXAMINATION TYPE: FL guidance operating room, XR finger LT DATE OF EXAM: 05/27/2019 CLINICAL HISTORY: Fluoroscopic documentation during K wire insertion of the left thumb for prior know n fracture. TECHNIQUE: Fluoroscopy. COMPARISON: None. FINDINGS: Fluoroscopic guidance was provided during procedure performed by Dr. Peter. A total of 57 seconds of fluoroscopic time was utilized during the procedure and 4 spot images was acquired. IMPRESSION: As Above.
[2019-05-27 15:45] VITALS: RESP 18
[2019-05-27 16:01] VITALS: BP 124/62; PULSE 85
--- NOTE | 2019-05-27 16:47 | P.OP ---
Date of Procedure: 05/27/19 Preoperative Diagnosis: 1. Power tool injury to the left thumb interphalangeal joint with open, intra-articular fractures of the proximal and distal phalanges Postoperative Diagnosis: 1. Power tool injury to the left thumb interphalangeal joint with open, intra- articular fractures of the proximal and distal phalanges 2. Complete laceration of the extensor pollicis longus tendon, Zone 1. Procedure(s) Performed: 1. Irrigation and debridement of left thumb interphalangeal joint and open fractures of the proximal and distal phalanges 2. Primary repair of the extensor pollicis longus tendon, Zone 1 3. Open reduction and transarticular pinning of left thumb interphalangeal joint Implants: 0.054 and 0.045 K-wires Anesthesia: MAC, regional, local Surgeon: Mukul Peter Estimated Blood Loss (ml): 3 Pathology: none sent Condition: stable Disposition: PACU Indications for Procedure: The patient is a pleasant 69-year-old female who sustained an open fracture of her left thumb interphalangeal joint secondary to contact with a wood splitter. Treatment options/alternatives were discussed in the office and surgical debridement was recommended. Risks and benefits were reviewed including (but not limited to) the risks of bleeding, injury to tendons or neurovascular structures, persistent or recurrent infection, wound healing problems, stiffness and possible need for additional surgery. The patient expressed understanding, willingness to accept these risks and wished to proceed with surgery. Consent forms were signed. The surgical site was confirmed and marked preoperatively. Operative Findings: Prominent bone loss of the dorsal articular surface of the proximal phalanx head/metaphysis and comminuted fracture of the distal phalanx articular surface. Complete, transverse laceration of the EPL tendon at the same level. Description of Procedure: The patient was administered a regional nerve block by the anesthesia team and was brought to the operating suite, positioned supine with the operative limb on an arm board. Monitored anesthesia was administered uneventfully. A tourniquet was placed on the arm. A time-out was performed, confirming patient identifiers, the operative side, site and the procedures to be performed: all team members expressed agreement. The right upper extremity was then prepped and draped in standard, sterile fashion. The limb was exsanguinated with an Esmarch and the tourniquet was inflated. Loupe magnification was used throughout the case for optimum visualization. The sutures were removed and the previous traumatic laceration was sharply opened and extended along the midaxial lines. The wound opened easily with spreading dissection and was explored. The extensor tendon was completely transected and retracted proximally with loss of tendon substance at the level of the skin laceration. The dorsal metaphyseal cortex of the proximal phalanx, including the dorsal articular surface of the head was traumatically absent from the log splitter. Hematoma and fibrous tissue were removed with a rongeur. Several small, comminuted fragments of bone were found sitting loosely in the wound and devoid of soft tissue attachments. These were removed. The articular surface of the distal phalanx was markedly comminuted with several fracture lines and separate fragments. There was also another unstable fracture fragment of the d orsal, radial metaphysis of the distal phalanx involving a portion of the terminal extensor insertion. This was overall well aligned but not large to permit direct fixation. The exposed metaphyseal bone was carefully debrided with a curette. The fracture sites and joint space was copiously irrigated with normal saline using a syringe. There was no gross purulence, obvious foreign material or sign of infection. The interphalangeal joint was manually reduced. A 0.054 K wire was selected and introduced percutaneously into the distal phalanx and advanced retrograde across the IP joint. Position alignment of the wire was confirmed on orthogonal intraoperative fluoroscopy. A second K wire (0.045) was inserted in a similar fashion for additional stability and rotational control. Final x-rays were obtained which showed good alignment and reduction of the joint. Passive stress at the IP joint showed no gross motion. Attention was turned to the extensor tendon. The tendon ends were mobilized and advanced as far as possible. The EPL tendon was repaired primarily with a Khan and cruciate stitch using 3-0 FiberWire suture to create a 4-strand repair. The tendon ends were reapproximated fairly well, albeit with some tension. The tourniquet was released after 56 minutes at 250 mmHg. Good hemostasis was obtained with held pressure. The wound was copiously irrigated with normal saline. The incisions were closed with interrupted 5-0 nylon sutures. Local anesthetic without epinephrine was injected for adjunctive postoperative pain control. Sterile dressings of Adaptic, 4 x 4's, Alvin and Coban were applied. All sponge, needle and instrument counts were correct at the end of the case. The patient tolerated the procedure well and was taken to recovery in stable condition
== END 2019-05-27 16:24 | disposition home or self-care (01) ==
LOC: OR 11:11
PROVIDERS: ATTEND Orthopaedic Surgery
DX: S62.522B Displaced fracture of distal phalanx of left thumb, initial encounter for open fracture (principal); S62.512B Displaced fracture of proximal phalanx of left thumb, initial encounter for open fracture; S66.222A Laceration of extensor muscle, fascia and tendon of left thumb at wrist and hand level, initial encounter; W29.8XXA Contact with other powered hand tools and household machinery, initial encounter; I10 Essential (primary) hypertension; E11.9 Type 2 diabetes mellitus without complications; E07.9 Disorder of thyroid, unspecified; H91.90 Unspecified hearing loss, unspecified ear; K21.9 Gastro-esophageal reflux disease without esophagitis; Z96.89 Presence of other specified functional implants; M19.90 Unspecified osteoarthritis, unspecified site; G47.33 Obstructive sleep apnea (adult) (pediatric); Z97.3 Presence of spectacles and contact lenses; R63.4 Abnormal weight loss; Z68.29 Body mass index [BMI] 29.0-29.9, adult; Z85.3 Personal history of malignant neoplasm of breast; Z90.49 Acquired absence of other specified parts of digestive tract; Z90.710 Acquired absence of both cervix and uterus; Z90.12 Acquired absence of left breast and nipple; J38.3 Other diseases of vocal cords; Z79.1 Long term (current) use of non-steroidal anti-inflammatories (NSAID); Z79.82 Long term (current) use of aspirin; Z79.890 Hormone replacement therapy; Z79.4 Long term (current) use of insulin; Z79.891 Long term (current) use of opiate analgesic; Z79.899 Other long term (current) drug therapy; Z88.1 Allergy status to other antibiotic agents; Z88.3 Allergy status to other anti-infective agents; Z88.5 Allergy status to narcotic agent
CPT/HCPCS: 26765; 26418; 64415; 76942; 73140; C1713; J2250; J1200; J1100 ×2; J0690; J2405; J2001 ×2; J3010; J2795; J2704

== ENCOUNTER → 2019-06-02 | Outpatient (CLI) | payer MEDICARE, OTHER | END | disposition home or self-care (01) | LOC: LABWHC1 11:53 | PROVIDERS: ATTEND Orthopaedic Surgery | DX: M79.642 Pain in left hand (principal); S62.522D Displaced fracture of distal phalanx of left thumb, subsequent encounter for fracture with routine healing; S66.222D Laceration of extensor muscle, fascia and tendon of left thumb at wrist and hand level, subsequent encounter; S61.211D Laceration without foreign body of left index finger without damage to nail, subsequent encounter; S61.012D Laceration without foreign body of left thumb without damage to nail, subsequent encounter | CPT/HCPCS: 36415; 82306 ==

== ENCOUNTER → 2020-04-26 | Outpatient (CLI) | payer MEDICARE, OTHER ==
[2020-04-26 15:37] LABS: Basophils % (A) 0 %; Eosinophils # (A) 0.1 k/uL (0-0.7); Eosinophils % (A) 1 %; HCT 46.3 % (34.0-46.0); HGB 14.3 gm/dL (11.4-16.0); Hypochromasia Slight; Lymphocytes # (A) 1.8 k/uL (1.0-4.8); Lymphocytes % (A) 21 %; MCHC 30.8 g/dL (31.0-37.0); MCV 94.2 fL (80.0-100.0); Mean Platelet Volume 7.9; Monocytes # (A) 0.4 k/uL (0-1.0); Monocytes % (A) 4 %; Neutrophils # (A) 6.1 k/uL (1.3-7.7); Neutrophils % (A) 72 %; Platelet Count 238 k/uL (150-450); RBC 4.92 m/uL (3.80-5.40); RDW 15.5 % (11.5-15.5); Reticulocyte % 2.5 % (0.5-2.0); WBC 8.5 k/uL (3.8-10.6)
[2020-04-26 15:52] LABS: Appearance,Urine Clear (Clear); Bilirubin,Urine Negative (Negative); Blood,Urine Negative (Negative); Color,Urine Yellow; Glucose,Urine (UA) 4+ (Negative); Ketones,Urine Negative (Negative); Leukocyte Esterase,Urine Negative (Negative); Nitrite,Urine Negative (Negative); PH, Urine 5.5 (5.0-8.0); Protein,Urine Negative (Negative); Specific Gravity,Urine 1.029 (1.001-1.035); Urobilinogen,Urine <2.0 mg/dL (<2.0)
[2020-04-27 01:42] LABS: % Iron Saturation 19.17 (12.00-45.00)
[2020-04-27 01:47] LABS: Progesterone <0.2 ng/mL
[2020-04-27 01:50] LABS: T4, Free (Free Thyroxine) 1.2 ng/dL (0.80-1.80)
[2020-04-27 01:53] LABS: Ferritin 65.6 ng/mL (10.0-291.0)
[2020-04-27 02:02] LABS: Folate, Serum 16.3 ng/mL
[2020-04-27 15:09] LABS: Estrogens Total 65 pg/mL
[2020-05-02 13:11] LABS: Vit B1(Thiamine) 53 ug/L (38-122)
[2020-05-02 15:21] LABS: Nicotinamide 14 ng/mL; Nicotinic Acid None Detected; Nicotinuric Acid None Detected
== END | disposition home or self-care (01) ==
LOC: LABWHC1 14:30
PROVIDERS: ATTEND Psychiatry & Neurology Neurology
DX: R53.83 Other fatigue (principal); D64.9 Anemia, unspecified; Z51.81 Encounter for therapeutic drug level monitoring
CPT/HCPCS: 36415; 81003; 82607; 82668; 82672; 82728; 82746; 83540; 83550; 84144; 84425; 84439; 84443; 84466; 84481; 84591; 85025; 85045

== ENCOUNTER 2020-11-17 15:51 | Emergency (ER) | payer MEDICARE, OTHER ==
--- NOTE | 2020-11-17 17:42 | ED ---
General Adult HPI - General Source: patient Mode of arrival: ambulatory Limitations: no limitations <Malki Valenzuela - Last Filed: 11/17/20 21:08> <Alejandro Hills - Last Filed: 11/17/20 22:02> - General Chief complaint: Nausea/Vomiting/Diarrhea Stated complaint: Vomiting Time Seen by Provider: 11/17/20 17:33 - History of Present Illness Initial comments: Patient presents to the ED complaining of having nausea and multiple bouts of vomiting since this morning. Patient states that she has also developed diffuse upper abdominal pain "with all my vomiting today". Patient states that she believes that her last bowel movement was yesterday. Patient denies trauma or injury, fever or chills, headache, focal neuro deficit, chest pain, dyspnea, cough or cold symptoms, palpitations, dizziness, lower abdominal pain, back pain, diarrhea or constipation, hematemesis, bloody or melanotic stool, dysuria/hematuria/urinary frequency/urinary symptoms, or any other symptoms or complaints. (Malik Valenzuela) - Related Data Home Medications Medication Instructions Recorded Confirmed Aspirin EC [Ecotrin Low Dose] 81 mg PO DAILY 04/22/16 05/27/19 methocarbamoL [Robaxin] 500 mg PO BID PRN 04/22/16 05/27/19 DULoxetine HCL [Cymbalta] 60 mg PO DAILY PRN 06/21/18 05/27/19 Montelukast [Singulair] 10 mg PO HS PRN 06/21/18 05/27/19 Dilaudud Pain Pump 1 dose INTRATHECA CONTINUOUS 12/29/18 05/27/19 Esomeprazole Magnesium [NexIUM] 40 mg PO BID 12/29/18 05/27/19 Liraglutide [Victoza 3-Dread] 1.8 mg SQ DAILY 12/29/18 05/27/19 metFORMIN HCL 1,000 mg PO BID 12/29/18 05/27/19 traMADol HCL [Ultram] 50 mg PO DAILY PRN 12/29/18 05/27/19 Mirabegron [Myrbetriq] 50 mg PO HS 01/06/19 05/27/19 Canagliflozin [Invokana] 100 mg PO DAILY PRN 03/14/19 05/27/19 Celecoxib [CeleBREX] 200 mg PO DAILY 03/14/19 05/27/19 Rosuvastatin Calcium [Crestor] 40 mg PO HS 03/14/19 05/27/19 Valsartan [Diovan] 40 mg PO DAILY PRN 03/14/19 05/27/19 Insulin Glargine,Hum.rec.anlog 60 unit SQ DAILY 05/26/19 05/27/19 [Lantus Solostar] Levothyroxine Sodium [Synthroid] 75 mcg PO DAILY 05/26/19 05/27/19 Previous Rx's Medication Instructions Recorded cephALEXin [Keflex] 500 mg PO Q6HR 7 Days #28 cap 05/20/19 Cephalexin [Keflex] 500 mg PO TID 5 Days #15 cap 05/27/19 HYDROcodone/APAP 5-325MG [[place] 1 tab PO Q4HR PRN #15 tab 05/27/19 5-325] Ciprofloxacin HCl [Cipro] 500 mg PO Q12HR #14 tablet 11/17/20 Allergies Allergy/AdvReac Type Severity Reaction Status Date / Time neomycin Allergy Itching Verified 11/17/20 16:02 Sulfa (Sulfonamide Allergy Dyspnea Verified 11/17/20 16:02 Antibiotics) sulfamethoxazole Allergy Dyspnea Verified 11/17/20 16:02 [From Septra] trimethoprim [From ] Allergy Dyspnea Verified 11/17/20 16:02 codeine AdvReac headache Verified 11/17/20 16:02 morphine AdvReac Itching Verified 11/17/20 16:02 Review of Systems ROS Other: All systems not noted in ROS Statement are negative. <Malik Valenzuela - Last Filed: 11/17/20 21:08> ROS Other: All systems not noted in ROS Statement are negative. <Alejandro Hills - Last Filed: 11/17/20 22:02> ROS Statement: Those systems with pertinent positive or pertinent negative responses have been documented in the HPI. Past Medical History Past Medical History: Cancer, Diabetes Mellitus, GERD/Reflux, Hyperlipidemia, Hypertension, Osteoarthritis (OA), Pneumonia, Sleep Apnea/CPAP/BIPAP, Thyroid Disorder Additional Past Medical History / Comment(s): 08/22/18 pneumonia/sepsis, constipation; chronic low back pain radiates to L leg/has pain pump, herniated discs, hx colitis, hx L breast cancer, hiatal nernia, hx kidney stone, has fx left thumb and laceration-had is wrapped with bandage History of Any Multi-Drug Resistant Organisms: MRSA Date of last positivie culture/infection: 04/02/17 MDRO Source:: URINE Past Surgical History: Back Surgery, Bladder Surgery, Breast Surgery, Cholecystectomy, Hysterectomy Additional Past Surgical History / Comment(s): Lt Mastectomy W/ L TRINA NSTRUCTION/ RT BREAST IMPLANT, SINUS SURG X3., colonoscopy, pain pump implant, bladder suspension. back surgery x 9, neck surgery Past Anesthesia/Blood Transfusion Reactions: Previous Problems w/ Anesthesia Additional Past Anesthesia/Blood Transfusion Reaction / Comment(s): HX OF DAMAGE TO VOCAL CORDS POST-OP BACK SURGERY, hx neck surgery-states no limitations in neck movement Past Psychological History: Anxiety Smoking Status: Never smoker Past Alcohol Use History: Rare Past Drug Use History: None Reported - Past Family History Father Sister(s) Family Medical History: Cancer Brother(s) Family Medical History: Cancer Additional Family Medical History / Comment(s): Prostate and throat cancer Mother History Unknown: Yes Family Medical History: No Reported History Additional Family Medical History / Comment(s): Brain aneurysm Father Family Medical History: Cancer <Malik Valenzuela - Last Filed: 11/17/20 21:08> General Exam Limitations: no limitations General appearance: alert, in no apparent distress Head exam: Present: atraumatic, normocephalic Eye exam: Present: normal appearance, EOMI ENT exam: Present: mucous membranes moist Neck exam: Present: other (Trachea is in midline) Respiratory exam: Present: normal lung sounds bilaterally. Absent: respiratory distress, wheezes, rales, rhonchi, stridor Cardiovascular Exam: Present: regular rate, normal rhythm, normal heart sounds, other (Normal radial pulses bilaterally) GI/Abdominal exam: Present: soft, normal bowel sounds, other (Moderate epigastric abdominal tenderness). Absent: distended, guarding, rebound Extremities exam: Absent: pedal edema Back exam: Absent: CVA tenderness (R), CVA tenderness (L) Neurological exam: Present: alert, oriented X3. Absent: motor sensory deficit Psychiatric exam: Present: normal affect, normal mood Skin exam: Present: warm, dry, intact, normal color <Malik Valenzuela - Last Filed: 11/17/20 21:08> Course <Malik Valenzuela - Last Filed: 11/17/20 21:08> Vital Signs 11/17/20 11/17/20 11/17/20 15:59 18:01 19:31 Temperature 97.7 F Pulse Rate 96 77 91 Respiratory 20 20 20 Rate Blood Pressure 119/62 136/70 151/51 O2 Sat by Pulse 94 L 95 96 Oximetry - Reevaluation(s) Reevaluation #1: 11/17/20 21:12 Patient was endorsed to Dr. Hills secondary to shift change with her UA still pending. Dr. Hills to follow up in the patient's UA results and take over care of the patient at this time. Plan will be to discharge patient home with antiemetics and possibly antibiotics if her UA shows findings of UTI. (Malik Valenzuela) Medical Decision Making - Lab Data Result diagrams: 11/17/20 18:16 11/17/20 18:16 - Radiology Data Radiology results: report reviewed (CT abdomen/pelvis with IV contrast: There is irregular urinary bladder wall thickening that is increased compared to old exam, this could relate to some nonspecific cystitis, normal appendix) <Malik Valenzuela - Last Filed: 11/17/20 21:08> - Lab Data Result diagrams: 11/17/20 18:16 11/17/20 18:16 <Alejandro Hills - Last Filed: 11/17/20 22:02> - Medical Decision Making Receive this patient as sign out pending the urinalysis. The patient wanted to go home following her treatment. Informed that she had urinary tract infection and required course of antibiotics and close follow-up. Patient to return if any worsening or if she is not improved within 12-24 hours. (Alejandro Hills) - Lab Data Lab Results 11/17/20 11/17/20 11/17/20 Range/Units 18:16 18:16 20:58 WBC 10.3 (3.8-10.6) k/uL RBC 5.34 (3.80-5.40) m/uL Hgb 14.9 (11.4-16.0) gm/dL Hct 46.2 H (34.0-46.0) % MCV 86.5 (80.0-100.0) fL MCH 27.9 (25.0-35.0) pg MCHC 32.3 (31.0-37.0) g/dL RDW 15.0 (11.5-15.5) % Plt Count 259 (150-450) k/uL MPV 7.5 Neutrophils % 66 % Lymphocytes % 25 % Monocytes % 6 % Eosinophils % 2 % Basophils % 0 % Neutrophils # 6.8 (1.3-7.7) k/uL Lymphocytes # 2.6 (1.0-4.8) k/uL Monocytes # 0.6 (0-1.0) k/uL Eosinophils # 0.2 (0-0.7) k/uL Basophils # 0.0 (0-0.2) k/uL Sodium 135 L (137-145) mmol/L Potassium 4.3 (3.5-5.1) mmol/L Chloride 97 L (98-107) mmol/L Carbon Dioxide 28 (22-30) mmol/L Anion Gap 10 mmol/L BUN 10 (7-17) mg/dL Creatinine 0.75 (0.52-1.04) mg/dL Est GFR (CKD-EPI)AfAm >90 (>60 ml/min/1.73 sqM) Est GFR (CKD-EPI)NonAf 82 (>60 ml/min/1.73 sqM) Glucose 262 H (74-99) mg/dL Calcium 9.9 (8.4-10.2) mg/dL Total Bilirubin 0.5 (0.2-1.3) mg/dL AST 29 (14-36) U/L ALT 15 (4-34) U/L Alkaline Phosphatase 89 (38-126) U/L Total Protein 7.5 (6.3-8.2) g/dL Albumin 4.0 (3.5-5.0) g/dL Lipase 109 (23-300) U/L Urine Color Yellow Urine Appearance Turbid H (Clear) Urine pH 6.0 (5.0-8.0) Ur Specific Electra 1.023 (1.001-1.035) Urine Protein 2+ H (Negative) Urine Glucose (UA) Negative (Negative) Urine Ketones Negative (Negative) Urine Blood Moderate H (Negative) Urine Nitrite Negative (Negative) Urine Bilirubin Negative (Negative) Urine Urobilinogen 2.0 (<2.0) mg/dL Ur Leukocyte Esterase Large H (Negative) Urine RBC 30 H (0-5) /hpf Urine WBC >182 H (0-5) /hpf Urine WBC Clumps Many H (None) /hpf Urine Bacteria Occasional H (None) /hpf Hyaline Casts 35 H (0-2) /lpf Urine Mucus Rare H (None) /hpf Urine Yeast (Budding) Moderate H (None) /hpf Disposition <Malik Valenzuela - Last Filed: 11/17/20 21:08> Is patient prescribed a controlled substance at d/c from ED?: No <Alejandro Hills - Last Filed: 11/17/20 22:02> Clinical Impression: Nausea & vomiting, Abdominal pain, Urinary tract infection Disposition: HOME SELF-CARE Condition: Fair Instructions (If sedation given, give patient instructions): Urinary Tract Infection in Women (ED), Acute Nausea and Vomiting (ED) Prescriptions: Ciprofloxacin HCl [Cipro] 500 mg PO Q12HR #14 tablet Referrals: Annelise Rose DO [Primary Care Provider] - 1-2 days
[2020-11-17] MEDS ORDERED: SODIUM CHLORIDE 0.9% 1,000 ML IV STA (17:51)
[2020-11-17] MEDS ORDERED: ONDANSETRON 4 MG/2 ML VIAL IVP STA (17:51)
[2020-11-17] MEDS ORDERED: PANTOPRAZOLE 40 MG/10 ML VIAL IVP STA (17:52)
[2020-11-17] MEDS ORDERED: KETOROLAC 15 MG/ML 1 ML VIAL IVP STA (18:30)
[2020-11-17 18:33] LABS: Basophils % (A) 0 %; Eosinophils # (A) 0.2 k/uL (0-0.7); Eosinophils % (A) 2 %; HCT 46.2 % (34.0-46.0); HGB 14.9 gm/dL (11.4-16.0); Lymphocytes # (A) 2.6 k/uL (1.0-4.8); Lymphocytes % (A) 25 %; MCH 27.9 pg (25.0-35.0); MCHC 32.3 g/dL (31.0-37.0); MCV 86.5 fL (80.0-100.0); Mean Platelet Volume 7.5; Monocytes # (A) 0.6 k/uL (0-1.0); Monocytes % (A) 6 %; Neutrophils # (A) 6.8 k/uL (1.3-7.7); Neutrophils % (A) 66 %; Platelet Count 259 k/uL (150-450); RBC 5.34 m/uL (3.80-5.40); WBC 10.3 k/uL (3.8-10.6)
[2020-11-17 18:44] LABS: ALT 15 U/L (4-34); AST 29 U/L (14-36); African American GFR (CKD) >90 (>60 ml/min/1.73 sqM); Alkaline Phosphatase 89 U/L (38-126); Anion Gap 10 mmol/L; Blood Urea Nitrogen 10 mg/dL (7-17); Calcium 9.9 mg/dL (8.4-10.2); Carbon Dioxide 28 mmol/L (22-30); Chloride 97 mmol/L (98-107); Glucose 262 mg/dL (74-99); Lipase 109 U/L (23-300); Non-African American GFR(CKD) 82 (>60 ml/min/1.73 sqM); Potassium 4.3 mmol/L (3.5-5.1); Sodium 135 mmol/L (137-145); Total Bilirubin 0.5 mg/dL (0.2-1.3); Total Protein 7.5 g/dL (6.3-8.2)
[2020-11-17] MEDS ORDERED: MAG HYDROX/AL HYDROX/SIMETH 30 ML, HYOSCYAMINE ELIXIR 10 ML, LIDOCAINE VISCOUS 2% 10 ML PO STA ×3 (18:57)
[2020-11-17 21:30] LABS: Appearance,Urine Turbid (Clear); Bacteria,Urine Occasional /hpf; Bilirubin,Urine Negative (Negative); Blood,Urine Moderate (Negative); Budding Yeast,Urine Moderate /hpf; Color,Urine Yellow; Glucose,Urine (UA) Negative (Negative); Hyaline Casts,Urine 35 /lpf (0-2); Ketones,Urine Negative (Negative); Leukocyte Esterase,Urine Large (Negative); Mucus,Urine Rare /hpf; Nitrite,Urine Negative (Negative); Protein,Urine 2+ (Negative); RBC,Urine 30 /hpf (0-5); Specific Gravity,Urine 1.023 (1.001-1.035); WBC,Urine >182 /hpf (0-5)
[2020-11-17] MEDS ORDERED: LEVOFLOXACIN 500 MG TAB PO STA ×2 (22:00→22:18)
[2020-11-17 22:59] VITALS: BP 124/71; PULSE 75; RESP 18; TEMP 98.1
--- NOTE | 2020-11-19 10:38 | CT ---
EXAMINATION TYPE: CT abdomen pelvis w con DATE OF EXAM: 11/17/2020 COMPARISON: 01/13/2019 HISTORY: Abdominal pain, vomiting. CT DLP: 1145.5 mGycm Automated exposure control for dose reduction was used. CONTRAST: Performed with IV Contrast, patient injected with 100 mL of Isovue 300. There is some patchy atelectasis at the posterior lung bases. There is no pericardial effusion. Stoma ch is intact. There are clips from cholecystectomy. There is no pancreatic mass. Spleen is intact. Li loly shows no focal defect. The bile ducts are not dilated. There is no adrenal mass. Kidneys show satisfactory contrast opacification. There is no hydronephrosi s. Delayed images show normal renal excretion. Ureters are not dilated. There is no retroperitoneal a denopathy. There is no inguinal hernia. There is no free fluid in the pelvis. There are sigmoid diver ticula without sign of diverticulitis. Appendix is posterior and appears normal. There is device impl anted over the left lower quadrant anteriorly. There is also subcutaneous right posterior pelvic tyesha ce implanted. There is irregular thickening of the urinary bladder wall. There is multilevel posterior fusion surgery. There is metal artifact in the lumbar spine. There is n arrowing of the L5-S1 and L3-4 disc spaces. There is no compression fracture. The bony pelvis is inta ct. IMPRESSION: There is irregular urinary bladder wall thickening that is increased compared to old exam. This could relate to some nonspecific cystitis. Normal appendix.
== END 2020-11-17 22:15 | disposition home or self-care (01) ==
LOC: EC 15:51
DX: N39.0 Urinary tract infection, site not specified (principal); R11.2 Nausea with vomiting, unspecified; E11.9 Type 2 diabetes mellitus without complications; K21.9 Gastro-esophageal reflux disease without esophagitis; I10 Essential (primary) hypertension; E78.5 Hyperlipidemia, unspecified; M19.90 Unspecified osteoarthritis, unspecified site; F41.9 Anxiety disorder, unspecified
CPT/HCPCS: 99284 ×2; 96374 ×2; 96375 ×2; 36415; 80053; 83690; 85025; 81001; 87086; 74177; J2405; J1885; C9113; Q9967

== ENCOUNTER 2020-11-22 15:28 | Emergency (ER) | payer MEDICARE, OTHER ==
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
--- NOTE | 2020-11-22 16:41 | XR ---
EXAMINATION TYPE: XR ankle complete LT DATE OF EXAM: 11/22/2020 COMPARISON: NONE HISTORY: 70-year-old female with pain after fall 2-3 weeks ago. TECHNIQUE: 3 views FINDINGS: Circumferential soft tissue swelling at the ankle. Suture anchors at the lateral malleolus. Cervical vertebral soft tissue swelling at the ankle. Corticated bony irregularity extending from below the me dial malleolus suggesting sequela of remote injury. Mild degenerative spurring at the tibiotalar join t mild fusiform thickening of the middle third Achilles tendon. Subtalar joint is aligned. No acute f racture, subluxation, dislocation seen. IMPRESSION: 1. Prior surgery with suture anchors at the lateral malleolus. 2. Bony irregularity at the medial malleolus also compatible with sequela of prior injury. 3. Circumferential soft tissue swelling. Mild degenerative change of the tibiotalar joint. No acute o sseous abnormality seen. 4. Mild fusiform thickening of the middle third Achilles tendon suggests tendinopathy.
[2020-11-22] MEDS ORDERED: KETOROLAC 15 MG/ML 1 ML VIAL IM STA (17:12)
[2020-11-22 17:33] VITALS: BP 148/88; PULSE 76; RESP 18; TEMP 98.2
== END 2020-11-22 17:32 | disposition home or self-care (01) ==
LOC: EC 15:28
DX: M25.572 Pain in left ankle and joints of left foot (principal); E11.9 Type 2 diabetes mellitus without complications; K21.9 Gastro-esophageal reflux disease without esophagitis; E78.5 Hyperlipidemia, unspecified; F41.9 Anxiety disorder, unspecified; G47.33 Obstructive sleep apnea (adult) (pediatric); M19.90 Unspecified osteoarthritis, unspecified site; I10 Essential (primary) hypertension; Z85.3 Personal history of malignant neoplasm of breast
CPT/HCPCS: 73610; 99283; 96372; J1885

== ENCOUNTER 2021-03-24 17:32 | Inpatient (IN) | payer MEDICARE, OTHER ==
[2021-03-24 17:47] LABS: Glucose,Whole Blood 460 mg/dL (75-99)
[2021-03-24] MEDS ORDERED: HYDROmorphone 1 MG/ML 1 ML SYRINGE IVP STA (17:49)
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
[2021-03-24 18:36] LABS: Basophils # (A) 0.1 k/uL (0-0.2); Basophils % (A) 1 %; Eosinophils # (A) 0.1 k/uL (0-0.7); Eosinophils % (A) 1 %; HCT 47.3 % (34.0-46.0); HGB 15.6 gm/dL (11.4-16.0); Lymphocytes # (A) 3.4 k/uL (1.0-4.8); Lymphocytes % (A) 20 %; MCH 29.4 pg (25.0-35.0); MCHC 33.1 g/dL (31.0-37.0); MCV 88.9 fL (80.0-100.0); Mean Platelet Volume 7.9; Monocytes # (A) 0.7 k/uL (0-1.0); Monocytes % (A) 4 %; Neutrophils # (A) 12.7 k/uL (1.3-7.7); Neutrophils % (A) 74 %; Platelet Count 322 k/uL (150-450); RBC 5.32 m/uL (3.80-5.40); RDW 15.7 % (11.5-15.5); WBC 17.1 k/uL (3.8-10.6)
[2021-03-24 18:43] LABS: ALT 25 U/L (4-34); AST 38 U/L (14-36); African American GFR (CKD) >90 (>60 ml/min/1.73 sqM); Alkaline Phosphatase 182 U/L (38-126); Anion Gap 14 mmol/L; Blood Urea Nitrogen 22 mg/dL (7-17); Carbon Dioxide 22 mmol/L (22-30); Chloride 95 mmol/L (98-107); Glucose 487 mg/dL (74-99); Lipase 137 U/L (23-300); Non-African American GFR(CKD) 81 (>60 ml/min/1.73 sqM); Potassium 4.7 mmol/L (3.5-5.1); Sodium 131 mmol/L (137-145); Total Bilirubin 0.4 mg/dL (0.2-1.3); Total Protein 7.6 g/dL (6.3-8.2)
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
[2021-03-24] MEDS ORDERED: NALOXONE 0.4 MG/ML 1 ML VIAL IV PRN (19:29)
[2021-03-24] MEDS ORDERED: INSULIN REGULAR 100 UNIT/ML VIAL (IV) IV ONE (19:31)
[2021-03-24 19:39] LABS: Glucose,Whole Blood 352 mg/dL (75-99)
[2021-03-24] MEDS: SODIUM CHLORIDE 0.9% 1,000 ML IV SCH (19:40)
[2021-03-24] MEDS: HYDROmorphone 1 MG/ML 1 ML SYRINGE IVP PRN (19:42)
[2021-03-24] MEDS: HYDROcodone/APAP 5-325MG 1 EACH TAB PO PRN (21:20)
[2021-03-25] MEDS: HYDROmorphone 1 MG/ML 1 ML SYRINGE IVP PRN ×4 (01:08→14:54)
[2021-03-25] MEDS: HYDROcodone/APAP 5-325MG 1 EACH TAB PO PRN ×2 (03:27→19:17)
--- NOTE | 2021-03-25 06:27 | P.GSHP ---
History of Present Illness H&P Date: 03/25/21 Notified by ER regarding patient status post fall in acute T12 compression fracture. Admission advised with orthopedic consultation for compression fracture. Admission for pain management. Past Medical History Past Medical History: Cancer, Diabetes Mellitus, GERD/Reflux, Hyperlipidemia, Hypertension, Osteoarthritis (OA), Pneumonia, Sleep Apnea/CPAP/BIPAP, Thyroid Disorder Additional Past Medical History / Comment(s): 08/22/18 pneumonia/sepsis, constipation; chronic low back pain radiates to L leg/has pain pump, herniated discs, hx colitis, hx L breast cancer, hiatal nernia, hx kidney stone, has fx left thumb and laceration-had is wrapped with bandage History of Any Multi-Drug Resistant Organisms: MRSA Date of last positivie culture/infection: 04/02/17 MDRO Source:: URINE Past Surgical History: Back Surgery, Bladder Surgery, Breast Surgery, Cholecystectomy, Hysterectomy Additional Past Surgical History / Comment(s): Lt Mastectomy W/ L RECONSTRUCTION/ RT BREAST IMPLANT, SINUS SURG X3., colonoscopy, pain pump implant, bladder suspension. back surgery x 9, neck surgery Past Anesthesia/Blood Transfusion Reactions: Previous Problems w/ Anesthesia Additional Past Anesthesia/Blood Transfusion Reaction / Comment(s): HX OF DAMAGE TO VOCAL CORDS POST-OP BACK SURGERY, hx neck surgery-states no limitations in neck movement Past Psychological History: No Psychological Hx Reported, Anxiety Additional Psychological History / Comment(s): "anxious before surgery" Smoking Status: Never smoker Past Alcohol Use History: Rare Past Drug Use History: None Reported - Past Family History Father Sister(s) Family Medical History: Cancer Brother(s) Family Medical History: Cancer Additional Family Medical History / Comment(s): Prostate and throat cancer Mother History Unknown: Yes Family Medical History: No Reported History Additional Family Medical History / Comment(s): Brain aneurysm Father Family Medical History: Cancer Medications and Allergies Home Medications Medication Instructions Recorded Confirmed Type methocarbamoL [Robaxin] 500 mg PO BID PRN 04/22/16 11/22/20 History DULoxetine HCL [Cymbalta] 60 mg PO DAILY PRN 06/21/18 11/22/20 History Montelukast [Singulair] 10 mg PO DAILY 06/21/18 11/22/20 History Esomeprazole Magnesium [NexIUM] 40 mg PO DAILY 12/29/18 11/22/20 History metFORMIN HCL [Glucophage] 1,000 mg PO BID 12/29/18 11/22/20 History traMADol HCL [Ultram] 50 mg PO BID PRN 12/29/18 11/22/20 History Mirabegron [Myrbetriq] 50 mg PO DAILY 01/06/19 11/22/20 History Insulin Glargine,Hum.rec.anlog 100 unit SQ DAILY 05/26/19 11/22/20 History [Lantus Solostar] Ciprofloxacin HCl [Cipro] 500 mg PO Q12HR #14 tablet 11/17/20 11/22/20 Rx Atorvastatin Calcium [Lipitor] 10 mg PO DAILY 11/22/20 11/22/20 History Levothyroxine Sodium [Synthroid] 75 mcg PO DAILY 11/22/20 11/22/20 History Allergies Allergy/AdvReac Type Severity Reaction Status Date / Time neomycin Allergy Itching Verified 11/22/20 17:13 Sulfa (Sulfonamide Allergy Dyspnea Verified 11/22/20 17:13 Antibiotics) sulfamethoxazole Allergy Dyspnea Verified 11/22/20 17:13 [From ] trimethoprim [From ] Allergy Dyspnea Verified 11/22/20 17:13 codeine AdvReac headache Verified 11/22/20 17:13 morphine AdvReac Itching Verified 11/22/20 17:13 Surgical - Exam Vital Signs Temp Pulse Resp BP Pulse Ox 98.5 F 85 20 173/96 92 L 03/24/21 17:33 03/24/21 17:33 03/24/21 17:33 03/24/21 17:33 03/24/21 17:33 Results - Labs 03/24/21 17:53 03/24/21 17:53 Abnormal Lab Results - Last 24 Hours (Table) 03/24/21 03/24/21 03/24/21 Range/Units 17:45 17:53 17:53 WBC 17.1 H (3.8-10.6) k/uL Hct 47.3 H (34.0-46.0) % RDW 15.7 H (11.5-15.5) % Neutrophils # 12.7 H (1.3-7.7) k/uL Sodium 131 L (137-145) mmol/L Chloride 95 L (98-107) mmol/L BUN 22 H (7-17) mg/dL Glucose 487 H (74-99) mg/dL POC Glucose (mg/dL) 460 H (75-99) mg/dL AST 38 H (14-36) U/L Alkaline Phosphatase 182 H (38-126) U/L 03/24/21 Range/Units 19:37 WBC (3.8-10.6) k/uL Hct (34.0-46.0) % RDW (11.5-15.5) % Neutrophils # (1.3-7.7) k/uL Sodium (137-145) mmol/L Chloride (98-107) mmol/L BUN (7-17) mg/dL Glucose (74-99) mg/dL POC Glucose (mg/dL) 352 H (75-99) mg/dL AST (14-36) U/L Alkaline Phosphatase (38-126) U/L Diabetes panel 03/24/21 Range/Units 17:53 Sodium 131 L (137-145) mmol/L Potassium 4.7 (3.5-5.1) mmol/L Chloride 95 L (98-107) mmol/L Carbon Dioxide 22 (22-30) mmol/L BUN 22 H (7-17) mg/dL Creatinine 0.75 (0.52-1.04) mg/dL Glucose 487 H (74-99) mg/dL Calcium 10.0 (8.4-10.2) mg/dL AST 38 H (14-36) U/L ALT 25 (4-34) U/L Alkaline Phosphatase 182 H (38-126) U/L Total Protein 7.6 (6.3-8.2) g/dL Albumin 4.0 (3.5-5.0) g/dL Calcium panel 03/24/21 Range/Units 17:53 Calcium 10.0 (8.4-10.2) mg/dL Albumin 4.0 (3.5-5.0) g/dL Pituitary panel 03/24/21 Range/Units 17:53 Sodium 131 L (137-145) mmol/L Potassium 4.7 (3.5-5.1) mmol/L Chloride 95 L (98-107) mmol/L Carbon Dioxide 22 (22-30) mmol/L BUN 22 H (7-17) mg/dL Creatinine 0.75 (0.52-1.04) mg/dL Glucose 487 H (74-99) mg/dL Calcium 10.0 (8.4-10.2) mg/dL Adrenal panel 03/24/21 Range/Units 17:53 Sodium 131 L (137-145) mmol/L Potassium 4.7 (3.5-5.1) mmol/L Chloride 95 L (98-107) mmol/L Carbon Dioxide 22 (22-30) mmol/L BUN 22 H (7-17) mg/dL Creatinine 0.75 (0.52-1.04) mg/dL Glucose 487 H (74-99) mg/dL Calcium 10.0 (8.4-10.2) mg/dL Total Bilirubin 0.4 (0.2-1.3) mg/dL AST 38 H (14-36) U/L ALT 25 (4-34) U/L Alkaline Phosphatase 182 H (38-126) U/L Total Protein 7.6 (6.3-8.2) g/dL Albumin 4.0 (3.5-5.0) g/dL
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
[2021-03-25] MEDS: SODIUM CHLORIDE 0.9% 1,000 ML IV SCH (15:30)
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
[2021-03-25] MEDS ORDERED: HYDROcodone/APAP 7.5-325MG 1 EACH TAB PO PRN (22:50)
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
[2021-03-26] MEDS: HYDROmorphone 1 MG/ML 1 ML SYRINGE IVP PRN ×4 (00:23→19:44)
[2021-03-26 07:14] LABS: Glucose,Whole Blood 334 mg/dL (75-99)
[2021-03-26] MEDS: INSULIN ASPART (NovoLOG) 100 UNIT/ML VIAL SQ SCH ×5 (07:48→20:20)
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
[2021-03-26 11:42] LABS: Glucose,Whole Blood 339 mg/dL (75-99)
[2021-03-26] MEDS: LEVOTHYROXINE 50 MCG TAB PO SCH (11:49)
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
[2021-03-26] MEDS: SODIUM CHLORIDE 0.9% 1,000 ML IV SCH (16:05)
[2021-03-26] MEDS: INSULIN DETEMIR (LEVEMIR) 100 UNIT/ML SYR SQ SCH (16:13)
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
[2021-03-26 16:29] LABS: Basophils # (A) 0.1 k/uL (0-0.2); Basophils % (A) 0 %; Eosinophils # (A) 0.3 k/uL (0-0.7); Eosinophils % (A) 2 %; HCT 46.9 % (34.0-46.0); HGB 15.6 gm/dL (11.4-16.0); Lymphocytes % (A) 16 %; MCH 29.7 pg (25.0-35.0); MCHC 33.2 g/dL (31.0-37.0); MCV 89.4 fL (80.0-100.0); Mean Platelet Volume 7.4; Monocytes # (A) 0.7 k/uL (0-1.0); Monocytes % (A) 6 %; Neutrophils # (A) 9.5 k/uL (1.3-7.7); Neutrophils % (A) 75 %; Platelet Count 189 k/uL (150-450); RBC 5.24 m/uL (3.80-5.40); RDW 15.7 % (11.5-15.5); WBC 12.7 k/uL (3.8-10.6)
[2021-03-26 16:36] LABS: African American GFR (CKD) >90 (>60 ml/min/1.73 sqM); Anion Gap 11 mmol/L; Blood Urea Nitrogen 20 mg/dL (7-17); Calcium 9.5 mg/dL (8.4-10.2); Carbon Dioxide 25 mmol/L (22-30); Chloride 93 mmol/L (98-107); Glucose 260 mg/dL (74-99); Non-African American GFR(CKD) >90 (>60 ml/min/1.73 sqM); Potassium 4.4 mmol/L (3.5-5.1); Sodium 129 mmol/L (137-145)
[2021-03-26 17:02] LABS: Glucose,Whole Blood 282 mg/dL (75-99)
[2021-03-26 20:13] LABS: Glucose,Whole Blood 272 mg/dL (75-99)
[2021-03-27 01:06] LABS: Hemoglobin A1C 12.6 % (4.0-6.0)
[2021-03-27] MEDS: HYDROmorphone 1 MG/ML 1 ML SYRINGE IVP PRN (04:33)
[2021-03-27] MEDS: LEVOTHYROXINE 50 MCG TAB PO SCH (05:25)
[2021-03-27 07:05] LABS: Glucose,Whole Blood 255 mg/dL (75-99)
[2021-03-27 07:51] LABS: Basophils # (A) 0.1 k/uL (0-0.2); Basophils % (A) 1 %; Eosinophils # (A) 0.2 k/uL (0-0.7); Eosinophils % (A) 2 %; HCT 45.7 % (34.0-46.0); Lymphocytes % (A) 17 %; MCH 29.6 pg (25.0-35.0); MCHC 32.9 g/dL (31.0-37.0); Monocytes # (A) 0.7 k/uL (0-1.0); Monocytes % (A) 6 %; Neutrophils # (A) 8.3 k/uL (1.3-7.7); Neutrophils % (A) 73 %; Platelet Count 221 k/uL (150-450); RBC 5.08 m/uL (3.80-5.40); RDW 15.2 % (11.5-15.5); WBC 11.4 k/uL (3.8-10.6)
[2021-03-27] MEDS: INSULIN ASPART (NovoLOG) 100 UNIT/ML VIAL SQ SCH ×7 (08:09→21:27)
[2021-03-27] MEDS: INSULIN DETEMIR (LEVEMIR) 100 UNIT/ML SYR SQ SCH (08:09)
--- NOTE | 2021-03-27 10:06 | P.PN ---
Progress Note - Text Progress Note Date: 03/27/21 Patient is seen and examined today at bedside. The patient has some pain around the thoracolumbar junction as expected. Pain is being controlled with medication. She has her TLSO brace intact.. She says it gives her a little bit of discomfort. She's not having any changes in her lower extremities. No change in bowel bladder function. Physical Exam Afebrile with stable vital signs The brace is fitting adequately. Abdomen is soft nontender. Chest has good excursion deep and space expiration She does have some tenderness at her thoracic lumbar junction and over her sacrum. Her thighs and calves soft nontender. She has sustained dorsal to plantar flexion and EHL intact in bilateral lower extremities. She is able lift her legs up off the bed independently. Calves and thighs were soft nontender without evidence of DVT. Assessment/Plan Acute L1 compression fracture and possible sacral ala fracture Inability to ambulate independently We'll continue to try to manage the fractures with conservative treatment. Her TLSO brace is intact and it is okay for her to try to mobilize without intact. I did discuss with her the possibility of surgical intervention and she would like to continue conservative treatment for now. I think this is reasonable. She will continue her TLSO brace and we can follow her up in another couple of weeks as outpatient for recheck evaluation and follow-up x-rays. Would not plan any surgical intervention for the sacral ala. She may ambulate with weightbearing as tolerated on her bilateral lower extremity is. , From an Orthopedic spine standpoint is okay for the patient to be discharged home or to rehabilitation when she is stable from medicine We will continue to increase the patient's mobilization with therapy. We will continue pain control with oral or IV medications. We'll continue to follow patient closely.
[2021-03-27] MEDS ORDERED: PANTOPRAZOLE 40 MG/10 ML VIAL IVP SCH (10:45)
[2021-03-27 11:16] LABS: Glucose,Whole Blood 237 mg/dL (75-99)
[2021-03-27 11:33] LABS: African American GFR (CKD) 86.6 (60.0-200.0); Anion Gap 10.5 mmol/L (4.00-12.00); BUN/Creat Ratio 21.25 Ratio (12.00-20.00); Calcium 9.2 mg/dL (8.7-10.3); Carbon Dioxide 30.5 mmol/L (21.6-31.8); Non-African American GFR(CKD) 74.7 (60.0-200.0)
[2021-03-27 13:05] VITALS: BMI 34.3
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
[2021-03-27 14:25] LABS: Appearance,Urine Turbid (Clear); Bacteria,Urine Many /hpf; Bilirubin,Urine Negative (Negative); Blood,Urine Small (Negative); Budding Yeast,Urine Many /hpf; Color,Urine Yellow; Glucose,Urine (UA) 1+ (Negative); Ketones,Urine Negative (Negative); Leukocyte Esterase,Urine Large (Negative); Mucus,Urine Few /hpf; Nitrite,Urine Positive (Negative); Protein,Urine 1+ (Negative); RBC,Urine 84 /hpf (0-5); Specific Gravity,Urine 1.019 (1.001-1.035); Squamous Epithelial Cell,Urine 7 /hpf (0-4); Urobilinogen,Urine <2.0 mg/dL (<2.0); WBC,Urine >182 /hpf (0-5)
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
--- NOTE | 2021-03-27 15:05 | US ---
EXAMINATION TYPE: US carotid duplex BILAT DATE OF EXAM: 03/27/2021 COMPARISON: NONE CLINICAL HISTORY: Altered mental status. AMS EXAM MEASUREMENTS: RIGHT: Peak Systolic Velocity (PSV) cm/sec ----- Right CCA: 77.3 ----- Right ICA: 75.5 ----- Right ECA: 102 ICA/CCA ratio: 1.0 RIGHT: End Diastole cm/sec ----- Right CCA: 16.9 ----- Right ICA: 21.6 ----- Right ECA: 8.6 LEFT: Peak Systolic Velocity (PSV) cm/sec ----- Left CCA: 65.8 ----- Left ICA: 91.0 ----- Left ECA: 99.3 ICA/CCA ratio: 1.4 LEFT: End Diastole cm/sec ----- Left CCA: 12.3 ----- Left ICA: 26.2 ----- Left ECA: 9.2 VERTEBRALS (direction of flow): Right Vertebral: Antegrade Left Vertebral: Antegrade Rhythm: Normal No significant stenosis seen IMPRESSION: 1. Mild atheromatous plaquing without significant flow-limiting stenosis. NASCET criteria was used in interpretation of this exam? Criteria for Assigning % of Stenosis / Diameter reduction (Estimation based on the indirect measurements of the internal carotid artery velocities (ICA PSV). 1. Normal (no stenosis)=ICA PSV < 125 cm/s: ratio < 2.0: ICA EDV<40 cm/s. 2. Less than 50% stenosis=ICA PSV < 125 cm/s: ratio < 2.0: ICA EDV<40 cm/s. 3. 50 to 69% stenosis=ICA PSV of 125 to 230 cm/s: ration 2.0 ? 4.0: ICA EDV 40-100 cm/s. 4. Greater than 70% stenosis to near occlusion= ICA PSV > 230 cm/s: ratio > 4.0: ICA EDV > 100 cm/s. 5. Near occlusion= ICA PSV velocities may be low or undetectable: variable ratio and ICA EDV. 6. Total occlusion=unable to detect flow.
[2021-03-27] MEDS: ACETAMINOPHEN TAB 325 MG TAB PO PRN (16:24)
[2021-03-27 17:20] LABS: Glucose,Whole Blood 179 mg/dL (75-99)
[2021-03-27] MEDS ORDERED: KETOROLAC 15 MG/ML 1 ML VIAL IVP STA (18:01)
[2021-03-27 20:11] LABS: Glucose,Whole Blood 214 mg/dL (75-99)
[2021-03-27] MEDS ORDERED: INSULIN DETEMIR (LEVEMIR) 100 UNIT/ML SYR SQ SCH (21:00)
[2021-03-27] MEDS ORDERED: HYDROcodone/APAP 5-325MG 1 EACH TAB PO SCH (21:15)
[2021-03-27] MEDS ORDERED: HYDROcodone/APAP 5-325MG 1 EACH TAB PO PRN (21:44)
[2021-03-28 04:01] LABS: Folate, Serum 17.3 ng/mL
[2021-03-28] MEDS: LEVOTHYROXINE 50 MCG TAB PO SCH (05:31)
[2021-03-28 06:02] LABS: Basophils % (A) 0 %; Eosinophils # (A) 0.2 k/uL (0-0.7); Eosinophils % (A) 3 %; HCT 48.7 % (34.0-46.0); HGB 15.6 gm/dL (11.4-16.0); Lymphocytes # (A) 1.8 k/uL (1.0-4.8); Lymphocytes % (A) 21 %; MCHC 32.1 g/dL (31.0-37.0); MCV 90.6 fL (80.0-100.0); Mean Platelet Volume 7.9; Monocytes # (A) 0.6 k/uL (0-1.0); Monocytes % (A) 7 %; Neutrophils # (A) 5.7 k/uL (1.3-7.7); Neutrophils % (A) 67 %; Platelet Count 213 k/uL (150-450); RBC 5.37 m/uL (3.80-5.40); RDW 15.6 % (11.5-15.5); WBC 8.6 k/uL (3.8-10.6)
[2021-03-28 06:57] LABS: Glucose,Whole Blood 175 mg/dL (75-99)
[2021-03-28] MEDS: INSULIN DETEMIR (LEVEMIR) 100 UNIT/ML SYR SQ SCH (08:03)
[2021-03-28] MEDS: INSULIN ASPART (NovoLOG) 100 UNIT/ML VIAL SQ SCH ×6 (08:03→18:24)
[2021-03-28] MEDS ORDERED: PANTOPRAZOLE 40 MG TABLET PO SCH (09:00)
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
[2021-03-28 09:59] LABS: African American GFR (CKD) 66.1 (60.0-200.0); Anion Gap 8.5 mmol/L (4.00-12.00); Calcium 9.3 mg/dL (8.7-10.3); Carbon Dioxide 31.5 mmol/L (21.6-31.8); Potassium 5.1 mmol/L (3.5-5.5)
[2021-03-28 11:17] LABS: Glucose,Whole Blood 291 mg/dL (75-99)
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
[2021-03-28 11:37] VITALS: BP 124/79; PULSE 90; RESP 17; TEMP 97.9
[2021-03-28] MEDS: ACETAMINOPHEN TAB 325 MG TAB PO PRN (11:37)
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
[2021-03-28 18:21] LABS: Glucose,Whole Blood 293 mg/dL (75-99)
== END 2021-03-28 18:37 | DRG 551 ==
LOC: EC 17:32 → 5NMEDONC 19:31
PROVIDERS: ADMIT Family Medicine; ATTEND Family Medicine
DX: S22.080A Wedge compression fracture of T11-T12 vertebra, initial encounter for closed fracture (principal); G92 Toxic encephalopathy; S32.000A Wedge compression fracture of unspecified lumbar vertebra, initial encounter for closed fracture; N39.0 Urinary tract infection, site not specified; E87.1 Hypo-osmolality and hyponatremia; M46.02 Spinal enthesopathy, cervical region; E03.9 Hypothyroidism, unspecified; E11.65 Type 2 diabetes mellitus with hyperglycemia; I10 Essential (primary) hypertension; E78.5 Hyperlipidemia, unspecified; G89.29 Other chronic pain; R41.0 Disorientation, unspecified; V89.2XXA Person injured in unspecified motor-vehicle accident, traffic, initial encounter; Y92.410 Unspecified street and highway as the place of occurrence of the external cause; Z78.1 Physical restraint status; Z79.84 Long term (current) use of oral hypoglycemic drugs; Z79.890 Hormone replacement therapy; Z79.899 Other long term (current) drug therapy; Z85.3 Personal history of malignant neoplasm of breast; Z87.19 Personal history of other diseases of the digestive system; Z87.442 Personal history of urinary calculi; Z90.12 Acquired absence of left breast and nipple; Z90.710 Acquired absence of both cervix and uterus; Z98.1 Arthrodesis status; Z98.82 Breast implant status; Z88.2 Allergy status to sulfonamides; Z88.5 Allergy status to narcotic agent; M19.90 Unspecified osteoarthritis, unspecified site; Z87.01 Personal history of pneumonia (recurrent)
CPT/HCPCS: 36415; 70450; 72125; 72131; 80048; 80053; 81001; 82607; 82746; 83036; 83690; 83921; 84207; 85025; 87077; 87086; 87186; 93005; 93880; 96374; 99285

== ENCOUNTER 2021-03-30 11:53 | Inpatient (IN) | payer MEDICARE, OTHER ==
[2021-03-30 12:32] LABS: Basophils % (A) 0 %; Eosinophils # (A) 0.2 k/uL (0-0.7); Eosinophils % (A) 2 %; HCT 42.8 % (34.0-46.0); HGB 13.9 gm/dL (11.4-16.0); Lymphocytes # (A) 1.9 k/uL (1.0-4.8); Lymphocytes % (A) 19 %; MCH 29.3 pg (25.0-35.0); MCHC 32.5 g/dL (31.0-37.0); Mean Platelet Volume 7.4; Monocytes # (A) 0.7 k/uL (0-1.0); Monocytes % (A) 7 %; Neutrophils # (A) 7.1 k/uL (1.3-7.7); Neutrophils % (A) 70 %; Platelet Count 245 k/uL (150-450); RBC 4.75 m/uL (3.80-5.40); RDW 15.8 % (11.5-15.5); WBC 10.2 k/uL (3.8-10.6)
[2021-03-30 12:41] LABS: ALT 16 U/L (4-34); AST 23 U/L (14-36); African American GFR (CKD) >90 (>60 ml/min/1.73 sqM); Albumin 3.4 g/dL (3.5-5.0); Alkaline Phosphatase 92 U/L (38-126); Anion Gap 9 mmol/L; Blood Urea Nitrogen 19 mg/dL (7-17); Calcium 9.5 mg/dL (8.4-10.2); Carbon Dioxide 26 mmol/L (22-30); Chloride 98 mmol/L (98-107); Glucose 304 mg/dL (74-99); Magnesium 1.7 mg/dL (1.6-2.3); Non-African American GFR(CKD) 89 (>60 ml/min/1.73 sqM); Potassium 4.4 mmol/L (3.5-5.1); Sodium 133 mmol/L (137-145); Total Bilirubin 0.3 mg/dL (0.2-1.3); Total Protein 6.7 g/dL (6.3-8.2)
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
[2021-03-30 13:03] LABS: Partial Thromboplastin Time 21.4 sec (22.0-30.0); Prothrombin Time 10.6 sec (9.0-12.0)
[2021-03-30] MEDS ORDERED: KETOROLAC 15 MG/ML 1 ML VIAL IVP STA (13:34)
--- NOTE | 2021-03-30 13:38 | XR ---
EXAMINATION TYPE: XR chest 2V DATE OF EXAM: 03/30/2021 COMPARISON: None HISTORY: 71-year-old female chest pain and shortness of breath TECHNIQUE: AP and lateral views FINDINGS: Density relating to a left breast implant. ACF hardware. Heart borderline in size. Mild interstitial prominence is a chronic appearance. No consolidation. Some patchy posterior basilar opacity on the la teral view. IMPRESSION: 1. Borderline heart size. 2. Minimal patchy posterior basilar atelectasis versus early infiltrate on the lateral view. Clinical ly correlate.
[2021-03-30] MEDS ORDERED: SODIUM CHLORIDE 0.9% 1,000 ML IV ONE (13:45)
[2021-03-30 14:28] LABS: Appearance,Urine Turbid (Clear); Bilirubin,Urine Negative (Negative); Blood,Urine Moderate (Negative); Budding Yeast,Urine Many /hpf; Color,Urine Yellow; Glucose,Urine (UA) 1+ (Negative); Ketones,Urine Negative (Negative); Leukocyte Esterase,Urine Large (Negative); Nitrite,Urine Negative (Negative); PH, Urine 5.5 (5.0-8.0); Protein,Urine 1+ (Negative); RBC,Urine >182 /hpf (0-5); Urobilinogen,Urine <2.0 mg/dL (<2.0); WBC,Urine >182 /hpf (0-5)
[2021-03-30 14:31] LABS: Specific Gravity,Urine 1.012 (1.001-1.035)
[2021-03-30] MEDS ORDERED: NITROGLYCERIN SL TABS 0.4 MG TAB SUBLINGUAL PRN (14:44)
[2021-03-30] MEDS ORDERED: ALPRAZolam 0.25 MG TAB PO PRN (15:54)
[2021-03-30] MEDS ORDERED: ACETAMINOPHEN TAB 500 MG TAB PO PRN (15:54)
[2021-03-30] MEDS: SODIUM CHLORIDE 0.9% 1,000 ML IV SCH ×2 (16:49→23:18)
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
[2021-03-30 17:12] LABS: Glucose,Whole Blood 265 mg/dL (75-99)
[2021-03-30] MEDS: INSULIN ASPART (NovoLOG) 100 UNIT/ML VIAL SQ SCH ×2 (17:16→21:42)
[2021-03-30] MEDS: ALBUTEROL NEBULIZED 2.5 MG/3 ML INHALATION SCH (18:55)
--- NOTE | 2021-03-30 20:55 | CT ---
EXAMINATION TYPE: CT angio chest DATE OF EXAM: 03/30/2021 COMPARISON: 08/21/2018 HISTORY: positive d-dimer CT DLP: 320.5 mGycm Automated exposure control for dose reduction was used. CONTRAST: Performed with IV Contrast, patient injected with 100 mL of Isovue 370. There are 3-D post processed images. There is some patchy interstitial infiltrate and atelectasis at the lung bases bilaterally. Heart is enlarged. There is no pericardial effusion. There are no hilar masses. There is no mediastinal adenop athy. Thoracic aorta shows no aneurysm or dissection. There is no evidence of filling defect in the pulmonary arteries. There are bilateral breast implants . There is some spurring in the thoracic spine. There is T12 10 percent compression fracture. IMPRESSION: No evidence of pulmonary embolism. Bilateral lower lobe patchy infiltrates and atelectasis also present on old exam. There is a new compression fracture of T12 that could be relatively acute.
[2021-03-30 20:58] LABS: Glucose,Whole Blood 364 mg/dL (75-99)
[2021-03-30] MEDS: HEPARIN SODIUM,PORCINE/PF 5,000 UNIT/0.5 ML SYRINGE SQ SCH (21:42)
[2021-03-30] MEDS: IBUPROFEN 400 MG TAB PO PRN (22:37)
[2021-03-30] MEDS: KETOROLAC 15 MG/ML 1 ML VIAL IVP SCH (23:36)
[2021-03-30] MEDS: HYDROcodone/APAP 5-325MG 1 EACH TAB PO PRN (23:55)
[2021-03-31 07:33] LABS: Glucose,Whole Blood 244 mg/dL (75-99)
[2021-03-31] MEDS: ALBUTEROL NEBULIZED 2.5 MG/3 ML INHALATION SCH ×3 (07:33→19:25)
[2021-03-31 08:03] VITALS: RESP 16
[2021-03-31] MEDS: KETOROLAC 15 MG/ML 1 ML VIAL IVP SCH ×2 (08:14→17:02)
[2021-03-31] MEDS: INSULIN ASPART (NovoLOG) 100 UNIT/ML VIAL SQ SCH ×5 (08:14→22:02)
[2021-03-31] MEDS: HEPARIN SODIUM,PORCINE/PF 5,000 UNIT/0.5 ML SYRINGE SQ SCH ×2 (08:14→22:02)
[2021-03-31] MEDS: ASPIRIN 325 MG TAB PO SCH (08:14)
[2021-03-31] MEDS: PANTOPRAZOLE 40 MG TABLET PO SCH (08:15)
[2021-03-31] MEDS: MULTIVITAMINS, THERA 1 EACH TAB PO SCH (08:15)
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
[2021-03-31 11:03] LABS: Basophils # (A) 0.04 X 10*3/uL (0.00-0.10); Basophils % (A) 0.5 %; Eosinophils # (A) 0.22 X 10*3/uL (0.04-0.35); Eosinophils % (A) 2.8 %; HCT 37.3 % (37.2-46.3); Lymphocytes # (A) 2.13 X 10*3/uL (0.90-5.00); Lymphocytes % (A) 27.2 %; MCHC 32.2 g/dL (32.0-37.0); MCV 90.1 fL (80.0-97.0); Mean Platelet Volume 10.8 fL (9.5-12.2); Monocytes # (A) 0.76 X 10*3/uL (0.20-1.00); Monocytes % (A) 9.7 %; Neutrophils # (A) 4.67 X 10*3/uL (1.80-7.70); Neutrophils % (A) 59.5 %; Platelet Count 211 X 10*3/uL (140-440); RBC 4.14 X 10*6/uL (4.10-5.20); RDW 15.6 % (11.5-14.5); WBC 7.84 X 10*3/uL (4.50-10.00)
[2021-03-31 11:41] LABS: African American GFR (CKD) 86.6 (60.0-200.0); Anion Gap 7.8 mmol/L (4.00-12.00); Calcium 8.5 mg/dL (8.7-10.3); Carbon Dioxide 27.2 mmol/L (21.6-31.8); Chol/HDL Ratio 6.57; LDL Cholesterol,Calculated 117.4 mg/dL (0.0-131.0); Non-African American GFR(CKD) 74.7 (60.0-200.0); Potassium 4.4 mmol/L (3.5-5.5); VLDL Calculation 38.6 mg/dL (5.00-40.00)
[2021-03-31 11:49] LABS: Glucose,Whole Blood 179 mg/dL (75-99)
[2021-03-31] MEDS ORDERED: HYDROcodone/APAP 5-325MG 1 EACH TAB PO PRN (13:09)
[2021-03-31] MEDS: SODIUM CHLORIDE 0.9% 1,000 ML IV SCH (13:14)
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
[2021-03-31 17:32] LABS: Glucose,Whole Blood 321 mg/dL (75-99)
[2021-03-31] MEDS ORDERED: PANTOPRAZOLE 40 MG TABLET PO SCH (21:00)
[2021-03-31 21:01] LABS: Glucose,Whole Blood 294 mg/dL (75-99)
[2021-03-31] MEDS: HYDROcodone/APAP 5-325MG 1 EACH TAB PO PRN (22:02)
[2021-03-31] MEDS: IBUPROFEN 400 MG TAB PO PRN (22:03)
[2021-04-01] MEDS: KETOROLAC 15 MG/ML 1 ML VIAL IVP SCH ×2 (00:43→07:35)
[2021-04-01] MEDS: SODIUM CHLORIDE 0.9% 1,000 ML IV SCH (00:49)
[2021-04-01] MEDS ORDERED: DOBUTamine DRIP for NUC MED 500 MG in DEXTROSE/WATER 1 250ML.BAG IV PRN (06:00)
[2021-04-01] MEDS: HYDROcodone/APAP 5-325MG 1 EACH TAB PO PRN ×2 (06:13→12:25)
[2021-04-01] MEDS ORDERED: LEVOTHYROXINE 50 MCG TAB PO SCH (06:30)
[2021-04-01] MEDS ORDERED: INSULIN DETEMIR (LEVEMIR) 100 UNIT/ML SYR SQ SCH (07:00)
[2021-04-01 07:15] LABS: Glucose,Whole Blood 375 mg/dL (75-99)
[2021-04-01] MEDS: INSULIN ASPART (NovoLOG) 100 UNIT/ML VIAL SQ SCH ×4 (07:34→12:49)
[2021-04-01] MEDS: HEPARIN SODIUM,PORCINE/PF 5,000 UNIT/0.5 ML SYRINGE SQ SCH (07:36)
[2021-04-01] MEDS: ASPIRIN 325 MG TAB PO SCH (07:37)
[2021-04-01] MEDS: PANTOPRAZOLE 40 MG TABLET PO SCH (07:37)
[2021-04-01] MEDS: ALBUTEROL NEBULIZED 2.5 MG/3 ML INHALATION SCH ×2 (08:36→12:37)
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
[2021-04-01 11:52] LABS: Glucose,Whole Blood 200 mg/dL (75-99)
--- NOTE | 2021-04-01 11:52 | ECHOF ---
Referral Reason:re: CP MEASUREMENTS -------- HEIGHT: 160.0 cm WEIGHT: 87.5 kg BP: 115/68 RVIDd: 2.6 cm (< 3.3) IVSd: 1.4 cm (0.6 - 1.1) LVIDd: 3.9 cm (3.9 - 5.3) LVPWd: 1.4 cm (0.6 - 1.1) IVSs: 2.0 cm LVIDs: 2.1 cm LVPWs: 1.9 cm LAESV Index (A-L): 32.12 ml/m Ao Diam: 3.2 cm (2.0 - 3.7) AV Cusp: 1.9 cm (1.5 - 2.6) LA Diam: 3.2 cm (2.7 - 3.8) MV EXCURSION: 14.054 mm (> 18.000) MV EF SLOPE: 79 mm/s (70 - 150) EPSS: 0.4 cm MV E Bright: 0.69 m/s MV DecT: 267 ms MV A Bright: 0.84 m/s MV E/A Ratio: 0.81 RAP: 5.00 mmHg RVSP: 35.08 mmHg FINDINGS -------- Sinus rhythm. This was a technically adequate study. The left ventricular size is normal. There is moderate concentric left ventricular hypertrophy. O verall left ventricular systolic function is normal with, an EF between 55 - 60 %. The diastolic fi lling pattern is normal for the age of the patient 12.79. The right ventricle is normal in size. LA is midly dilated 29-33ml/m2. The right atrial size is normal. Interatrial and interventricular septum intact. There is no evidence of aortic regurgitation. There is no evidence of aortic stenosis. There is trace mitral regurgitation. Mild tricuspid regurgitation present. There is mild pulmonary hypertension. The right ventricular systolic pressure, as measured by Doppler, is 35.08mmHg. There is no pulmonic regurgitation present. The aortic root size is normal. IVC Not well visulized. There is no pericardial effusion. CONCLUSIONS -------- 1. The left ventricular size is normal. 2. There is moderate concentric left ventricular hypertrophy. 3. Overall left ventricular systolic function is normal with, an EF between 55 - 60 %. 4. The diastolic filling pattern is normal for the age of the patient 12.79 5. LA is midly dilated 29-33ml/m2. 6. There is trace mitral regurgitation. 7. Mild tricuspid regurgitation present. 8. There is mild pulmonary hypertension. 9. The right ventricular systolic pressure, as measured by Doppler, is 35.08mmHg. DOCUMENT SPECIALIST: Suzy Muñoz RDCS
--- NOTE | 2021-04-01 12:13 | P.STRESS ---
- Stress Test Note Stress Test Results/Findings: Exam Performed: Exam Date: Reason for Exam: Height: 5 ft 3 in Weight: 87.543 kg Protocol: Stage: Duration of Exercise: Resting Heart Rate: Resting Blood Pressure: Maximum Achieved Heart Rate: Maximum Achieved Blood Pressure: 85% PMHR: 100% PMHR: METS: Technologist Comment: Stress Test Results/Findings: This is a 71-year-old female who is being evaluated for symptoms of chest pain. She has history of diabetes and symptoms of shortness of breath and also underlying COPD. Stress data: Baseline EKG showed sinus rhythm with normal RI and QRS duration. Blood pressure at rest is 120/77 with pulse rate of 61. History and also dobutamine was initiated at 10 mics and was titrated to 40 mics, achieving a maximal heart rate of 127 with a blood pressure of 168/51. EKGs taken during and after the infusion did not reveal any changes of ischemia. Patient did not experience any chest pain. Occasional PVCs were noted. Echo data: Baseline echo images show normal wall motion and thickening. Exercise echo images are suboptimal but there doesn't seem to be any gross ischemic wall motion abnormalities. Final impression #1. Negative dobutamine stress test #2. Negative dobutamine stress echo
[2021-04-01] MEDS: MULTIVITAMINS, THERA 1 EACH TAB PO SCH (12:50)
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
[2021-04-01] MEDS ORDERED: ONDANSETRON 4 MG/2 ML VIAL IVP STA (15:40)
[2021-04-01 15:45] VITALS: BP 134/72; PULSE 80; TEMP 97.7
== END 2021-04-01 16:21 | DRG 313 ==
LOC: EC 11:53 → 6NMEDSUR 15:14 → OBSVTOIN 04-01 09:50
PROVIDERS: ADMIT Family Medicine; ATTEND Family Medicine
DX: R07.89 Other chest pain (principal); N39.0 Urinary tract infection, site not specified; E87.2 Acidosis; E87.1 Hypo-osmolality and hyponatremia; J98.11 Atelectasis; M48.54XA Collapsed vertebra, not elsewhere classified, thoracic region, initial encounter for fracture; Z79.4 Long term (current) use of insulin; Z79.890 Hormone replacement therapy; K21.9 Gastro-esophageal reflux disease without esophagitis; E78.5 Hyperlipidemia, unspecified; M19.90 Unspecified osteoarthritis, unspecified site; G89.29 Other chronic pain; Z86.14 Personal history of Methicillin resistant Staphylococcus aureus infection; Z80.8 Family history of malignant neoplasm of other organs or systems; E11.65 Type 2 diabetes mellitus with hyperglycemia; E03.9 Hypothyroidism, unspecified; Z87.01 Personal history of pneumonia (recurrent); Z85.3 Personal history of malignant neoplasm of breast; Z87.442 Personal history of urinary calculi; Z20.822 Contact with and (suspected) exposure to COVID-19; E66.9 Obesity, unspecified; Z68.34 Body mass index [BMI] 34.0-34.9, adult; G47.33 Obstructive sleep apnea (adult) (pediatric); Z88.5 Allergy status to narcotic agent; Z88.2 Allergy status to sulfonamides; Z88.8 Allergy status to other drugs, medicaments and biological substances; V89.2XXS Person injured in unspecified motor-vehicle accident, traffic, sequela; Z90.710 Acquired absence of both cervix and uterus; Z96.89 Presence of other specified functional implants; I10 Essential (primary) hypertension; Z98.82 Breast implant status; Z90.12 Acquired absence of left breast and nipple; Z79.899 Other long term (current) drug therapy
CPT/HCPCS: 36415; 71046; 71275; 80048; 80053; 80061; 81001; 83605; 83735; 84484; 85025; 85379; 85610; 85730; 87040; 87086; 87635; 93005; 93306; 93351; 93970; 94640; 94760; 96361; 96374; 99285

== ENCOUNTER → 2022-02-06 | Outpatient (CLI) | payer MEDICARE, OTHER ==
--- NOTE | 2022-02-06 14:34 | MM ---
Reason for Exam: Additional evaluation requested from prior study. Last mammogram was performed 4 year(s) and 5 month(s) ago. Patient History: Menarche at age 14. First Full-Term at age 23. Left ovary removed at age 41. Right ovary removed at age 41. Hysterectomy at age 41. Postmenopausal. Breast cancer, left, age 53. 2004, Reduction on the Right side. 2001, Mastectomy on the Left side. 2001, Chemotherapy. 2004, Bilateral Implants. Maternal cousin had breast cancer, age 50. Prior Study Comparison: 04/07/2013 Screening Mammogram, [place]. 10/09/2015 Right Diagnostic Mammogram, [facility]. 09/04/2017 Right Diagnostic Mammogram, [facility]. Tissue Density: Right: The breast tissue is heterogeneously dense. This may lower the sensitivity of mammography. Findings: Analyzed By CAD. Pattern appears stable. Prosthesis is present. Scattered benign calcifications are present. No suspicious spiculated or lobular masses, cluster microcalcifications, architectural distortion, or other secondary signs of malignancy radiographically apparent. Overall Assessment: Benign, BI-RAD 2 Management: Screening Mammogram of both breasts in 1 year. A clinical breast exam by your physician is recommended on an annual basis and results should be correlated with mammographic findings. This exam should not preclude additional follow-up of suspicious palpable abnormalities. Results were given to the patient verbally at the time of exam. Electronically signed and approved by: Wero Manrique D.O. Radiologis
--- NOTE | 2022-02-06 16:01 | BD ---
EXAMINATION TYPE: Axial Bone Density DATE OF EXAM: 02/06/2022 COMPARISON: FIRST DEXA AT [facility] CLINICAL HISTORY: 71 years year old Female. ICD-10 CODE: Z78.0 POST MENOPAUSAL WITHOUT HRT Height: 64 Weight: 187 FRAX RISK QUESTIONS: History of Fracture in Adulthood: YES Secondary Osteoporosis: RISK FACTORS HISTORY OF: Spine Fracture: YES LUMBAR FX When: 2019 Family History of Osteoporosis: YES Diet low in dairy products/other sources of calcium: YES Postmenopausal woman: YES Poor Health: [facility] MEDICATIONS: Additional Medications: INSULIN, THYROID MED Additional History: BR CANCER ABOUT 10 YEARS AGO WITH MASTECTOMY EXAM MEASUREMENTS: Bone mineral density about the R hip (g/cm2): 0.911 Bone mineral density about the L hip (g/cm2): 0.844 T Score values are as follows: -----R Neck: -2.0 -----L Neck: -1.8 -----R Total: -0.8 -----L Total: -1.3 Bone mineral density has FIRST BONE DENSITY AT [facility] Bone mineral density about the L Wrist (g/cm2): 0.444 T Score values are as follows: -----Dist. R+U: -3.2 -----Prox. R+U: -3.2 -----Radius total: -3.8 FRAX%s: The graph provided illustrates a 18.4% chance for a major osteoporotic fx and a 3.6% chance f or the hips probability for fx in 10 years time. IMPRESSION: Osteoporosis (T Score less than -2.5). There is increased fracture risk and therapy is usually indicated based on age. Re-Screen 1-2 years. NOTE: T-SCORE=SD OF THE YOUNG ADULT MEAN.
== END | disposition home or self-care (01) ==
LOC: RADBDWWP 13:04
PROVIDERS: ATTEND Family Medicine
DX: R92.1 Mammographic calcification found on diagnostic imaging of breast (principal); M81.0 Age-related osteoporosis without current pathological fracture; Z78.0 Asymptomatic menopausal state
CPT/HCPCS: 77080; 77065; G0279; 77061

== ENCOUNTER → 2023-02-09 | Outpatient (CLI) | payer MEDICARE, OTHER ==
--- NOTE | 2023-02-10 10:12 | MM ---
Reason for Exam: Screening (asymptomatic). Last screening mammogram was performed 12 month(s) ago. Patient History: Menarche at age 14. First Full-Term at age 23. Left ovary removed at age 41. Right ovary removed at age 41. Hysterectomy at age 41. Postmenopausal. Breast cancer, left, age 53. 2004, Reduction on the Right side. 2001, Mastectomy on the Left side. 2001, Chemotherapy. 2004, Bilateral Implants. Maternal cousin had breast cancer, age 50. Prior Study Comparison: 10/09/2015 Right Diagnostic Mammogram, [facility]. 09/04/2017 Right Diagnostic Mammogram, [facility]. 02/06/2022 Right MG 3D diag mammo imp w/cad RT, [facility]. Tissue Density: Right: The breast tissue is heterogeneously dense. This may lower the sensitivity of mammography. Findings: Analyzed By CAD. Subpectoral right-sided breast implant is redemonstrated. There are scattered benign-appearing round calcifications throughout the right breast redemonstrated. Benign-appearing right axillary lymph nodes are redemonstrated. Benign-appearing vascular calcification in the right breast is redemonstrated. There is no suspicious group of microcalcifications or new suspicious mass in right breast. Overall Assessment: Benign, BI-RAD 2 Management: Screening Mammogram of the right breast in 1 year. . Patient should continue monthly self-breast exams. A clinical breast exam by your physician is recommended on an annual basis. This exam should not preclude additional follow-up of suspicious palpable abnormalities. Note on Adrianne scores and lifetime risk: 1. A Adrianne score greater than 3% is considered moderate risk. If this is the case, consider specialist referral to assess eligibility for a risk reducing agent. 2. If overall lifetime risk for the development of breast cancer is 20% or higher, the patient may qualify for future screening with alternating mammogram and breast MRI. Electronically signed and approved by: Gage Raymond M.D.
== END | disposition home or self-care (01) ==
LOC: RADMAMWWP 14:33
PROVIDERS: ATTEND Family Medicine
DX: Z12.31 Encounter for screening mammogram for malignant neoplasm of breast (principal); Z78.0 Asymptomatic menopausal state; Z80.3 Family history of malignant neoplasm of breast
CPT/HCPCS: 77063; 77067

== ENCOUNTER → 2024-02-11 | Outpatient (CLI) | payer MEDICARE, OTHER ==
--- NOTE | 2024-02-14 17:33 | MM ---
Reason for Exam: Screening (asymptomatic). Last screening mammogram was performed 12 month(s) ago. Patient History: Menarche at age 14. First Full-Term at age 23. Left ovary removed at age 41. Right ovary removed at age 41. Hysterectomy at age 41. Postmenopausal. Breast cancer, left, age 53. 2004, Reduction on the Right side. 2001, Mastectomy on the Left side. 2001, Chemotherapy. 2004, Bilateral Implants. Maternal cousin had breast cancer, age 50. Prior Study Comparison: 09/04/2017 Right Diagnostic Mammogram, [facility]. 02/06/2022 Right MG 3D diag mammo imp w/cad RT, [facility]. 02/09/2023 Right MG 3D screening mammo w/cad, [facility]. Tissue Density: The breasts are heterogeneously dense, which may obscure small masses. Findings: Analyzed By CAD. Retropectoral saline implant. Benign oil cyst calcifications. Nodular asymmetric density inferior right MLO view middle to posterior depth for which further evaluation is recommended. Overall Assessment: Incomplete: need additional imaging evaluation, BI-RAD 0 Management: Special View Mammogram of the right breast. Diagnostic Breast Ultrasound of the right breast. . [facility] will attempt to contact patient to return for supplemental views and ultrasound if indicated. Electronically signed and approved by: Nir Thayer M.D. Radiologist
== END | disposition home or self-care (01) ==
LOC: RADMAMWWP 13:03 → EEVIPCON 13:15
PROVIDERS: ATTEND Family Medicine
DX: Z12.31 Encounter for screening mammogram for malignant neoplasm of breast (principal); Z78.0 Asymptomatic menopausal state; Z80.3 Family history of malignant neoplasm of breast
CPT/HCPCS: 77063; 77067

== ENCOUNTER → 2024-02-16 | Outpatient (CLI) | payer MEDICARE, OTHER ==
--- NOTE | 2024-02-16 10:15 | MM ---
Reason for Exam: Additional evaluation requested from abnormal screening. Last screening mammogram was performed less than 1 month ago. Patient History: Menarche at age 14. First Full-Term at age 23. Left ovary removed at age 41. Right ovary removed at age 41. Hysterectomy at age 41. Postmenopausal. Breast cancer, left, age 53. 2004, Reduction on the Right side. 2001, Mastectomy on the Left side. 2001, Chemotherapy. 2004, Bilateral Implants. Maternal cousin had breast cancer, age 50. Tissue Density: Right: The breasts are heterogeneously dense, which may obscure small masses. Findings: Analyzed By CAD. Retropectoral saline implant has been pushed out of the field of view. Benign oil cyst calcifications. The questioned area of asymmetric density inferior aspect of the middle to posterior depth appears to disperse on spot view but a subtle 8mm low density asymmetry is seen on tomographic slices. This suggests a benign etiology such as a cyst or focal island of tissue. Overall Assessment: Incomplete: need additional imaging evaluation, BI-RAD 0 Management: Diagnostic Breast Ultrasound of the right breast. Electronically signed and approved by: Nir Thayer M.D. Radiologist
--- NOTE | 2024-02-16 11:02 | USB ---
Reason for Exam: Additional evaluation requested from abnormal screening. Patient History: Menarche at age 14. First Full-Term at age 23. Left ovary removed at age 41. Right ovary removed at age 41. Hysterectomy at age 41. Postmenopausal. Breast cancer, left, age 53. 2004, Reduction on the Right side. 2001, Mastectomy on the Left side. 2001, Chemotherapy. 2004, Bilateral Implants. Maternal cousin had breast cancer, age 50. Technique: Method: Targeted. Prior Study Comparison: 02/06/2022 Right MG 3D diag mammo imp w/cad RT, [facility]. 02/09/2023 Right MG 3D screening mammo w/cad, [facility]. 02/11/2024 Bilateral MG 3D screen mammo imp/cad., [facility]. Findings: The lower section of the breast of the right breast, the axilla of the right breast and the retroareolar of the right breast were scanned. Underlying breast implant. Targeted ultrasound inferior half 3:00 to 9:00 including scanning of the subareolar region and axilla. No solid or cystic lesion or axillary lymphadenopathy.. Overall Assessment: Probably benign, BI-RAD 3 Management: Diagnostic Mammogram of the right breast in 6 months. A clinical breast exam by your physician is recommended on an annual basis and results should be correlated with mammographic findings. This exam should not preclude additional follow-up of suspicious palpable abnormalities. Results were given to the patient verbally at the time of exam. Electronically signed and approved by: Nir Thayer M.D. Radiologist
== END | disposition home or self-care (01) ==
LOC: RADMAMWWP 09:36
PROVIDERS: ATTEND Family Medicine
DX: R92.331 Mammographic heterogeneous density, right breast (principal); R92.8 Other abnormal and inconclusive findings on diagnostic imaging of breast; Z78.0 Asymptomatic menopausal state; Z80.3 Family history of malignant neoplasm of breast
CPT/HCPCS: 77065; 76642; G0279; 77061

== ENCOUNTER → 2024-08-19 | Outpatient (CLI) | payer MEDICARE, OTHER ==
--- NOTE | 2024-08-19 14:31 | MM ---
Reason for Exam: Follow-up at short interval from prior study. Last screening mammogram was performed 6 month(s) ago. Patient History: Menarche at age 14. First Full-Term at age 23. Left ovary removed at age 41. Right ovary removed at age 41. Hysterectomy at age 41. Postmenopausal. Breast cancer, left, age 53. 2004, Reduction on the Right side. 2001, Mastectomy on the Left side. 2001, Chemotherapy. 2004, Bilateral Implants. Maternal cousin had breast cancer, age 50. Prior Study Comparison: 02/09/2023 Right MG 3D screening mammo w/cad, [facility]. 02/11/2024 Bilateral MG 3D screen mammo imp/cad., [facility]. 02/16/2024 Right MG 3D work up w/cad RT, [facility]. Tissue Density: Right: The breasts are heterogeneously dense, which may obscure small masses. Findings: Analyzed By CAD. The pattern is symmetrical. Right breast prosthesis is present. Benign round calcifications are present. Density remains present in the lower inner aspect right breast. This is unchanged. No suspicious groups of microcalcifications, spiculated or lobular masses, architectural distortion or other secondary signs of malignancy are mammographically apparent. Overall Assessment: Probably benign, BI-RAD 3 Management: Diagnostic Mammogram of the right breast in 6 months. A negative mammogram report should not preclude additional follow up of suspicious palpable abnormalities. Patient should continue monthly self breast exam. A clinical breast exam by your physician is recommended on an annual basis and results should be correlated with mammographic findings. Note on Adrianne scores and lifetime risk: 1. A Adrianne score greater than 3% is considered moderate risk. If this is the case, consider specialist referral to assess eligibility for a risk reducing agent. 2. If overall lifetime risk for the development of breast cancer is 20% or higher, the patient may qualify for future screening with alternating mammogram and breast MRI. [facility], , 08/19/2024 2:13 PM. Electronically signed and approved by: Wero Manrique D.O. Radiologis
== END | disposition home or self-care (01) ==
LOC: RADMAMWWP 13:44
PROVIDERS: ATTEND Family Medicine
DX: R92.8 Other abnormal and inconclusive findings on diagnostic imaging of breast (principal); Z90.722 Acquired absence of ovaries, bilateral; Z78.0 Asymptomatic menopausal state; Z80.3 Family history of malignant neoplasm of breast; Z85.3 Personal history of malignant neoplasm of breast; R92.331 Mammographic heterogeneous density, right breast; Z98.82 Breast implant status
CPT/HCPCS: 77065; G0279; 77061